=== PATIENT | female | born 1945 | race Caucasian/White ===

== ENCOUNTER 2023-03-12 06:19 | Emergency (ER) | payer MEDICARE, MEDICAID, SELFPAY ==
--- NOTE | 2023-03-12 06:26 | ECG_ITS ---
APPROVED REPORT Exam: Resting ECG HR:71 bpm ECG Measurements Heart Rate 71 AXES ME 153 P 64 QRSd 90 QRS 66 QT 316 T 25 QTc 339 Conclusion SINUS RHYTHM POSSIBLE RIGHT VENTRICULAR CONDUCTION DELAY [RSR (QR) IN V1/V2] NONSPECIFIC T-WAVE ABNORMALITY BORDERLINE ECG UNCONFIRMED REPORT Electronically signed by : Mike Estrada MD 03/12/2023 08:15:21
--- NOTE | 2023-03-12 06:31 | CT_ITS ---
FINAL REPORT TECHNIQUE: Axial images through the thoracic spine were performed. Sagittal reconstruction images were performed. This study was performed with techniques to keep radiation doses as low as reasonably achievable, (ALARA). Individualized dose reduction techniques using automated exposure control or adjustment of mA and/or kV according to the patient's size were employed. CLINICAL HISTORY: fall back pain FINDINGS: There is a minimal superior endplate compression fracture of T7 which is age indeterminate, favor chronic. Moderate dextroscoliosis is identified. There are moderate diffuse degenerative changes without fracture. Incidental note is made of a left lower lobe density which could be due to pneumonia, atelectasis, or even mass. IMPRESSION: Age indeterminate superior endplate compression fracture of T7, favor chronic. Nonspecific central left lower lobe parenchymal opacity. Consider chest CT follow-up. Reviewed, Interpreted and Dictated by Bebo Ahmadi MD Transcribed by Theresa Craig Authenticated and [facility]
--- NOTE | 2023-03-12 06:31 | XR_ITS ---
FINAL REPORT CLINICAL HISTORY: fall pain FINDINGS: Left hip Three views were obtained. There is no acute fracture or dislocation. There are mild degenerative changes. No soft tissue abnormality is identified. IMPRESSION: Mild degenerative changes. Reviewed, Interpreted and Dictated by Bebo Ahmadi MD Transcribed by Theresa Craig Authenticated and [facility]
--- NOTE | 2023-03-12 06:31 | CT_ITS ---
FINAL REPORT TECHNIQUE: Axial images were obtained of the cervical spine by computed tomography. Coronal and sagittal reconstruction process performed. This study was performed with techniques to keep radiation doses as low as reasonably achievable (ALARA). Individualized dose reduction techniques using automated exposure control or adjustment of mA and/or kV according to the patient''s size were employed. CLINICAL HISTORY: fall back pain FINDINGS: No fracture is identified. There is mild degenerative subluxation of C2 on 3. Severe diffuse degenerative disc disease is identified. There is degenerative canal stenosis at multiple levels in the lower cervical spine. IMPRESSION: Severe degenerative changes without acute fracture. Reviewed, Interpreted and Dictated by Bebo Ahmadi MD Transcribed by Theresa Craig Authenticated and [facility]
--- NOTE | 2023-03-12 06:31 | CT_ITS ---
FINAL REPORT TECHNIQUE: Axial images through the brain was performed by computed tomography. Sagittal and coronal reformatted images were obtained and reviewed. This study was performed with techniques to keep radiation doses as low as reasonably achievable (ALARA). Individualized dose reduction techniques using automated exposure control or adjustment of mA and/or kV according to the patient's size were employed. CLINICAL HISTORY: fall, advanced age FINDINGS: No abnormal density is seen. Ventricles are normal. There is no hemorrhage. No mass effect is seen. Bone windows show no evidence of fracture. IMPRESSION: No acute findings. Reviewed, Interpreted and Dictated by Bebo Ahmadi MD Transcribed by Theresa Craig Authenticated and . [facility]
--- NOTE | 2023-03-12 06:31 | CT_ITS ---
FINAL REPORT TECHNIQUE: Axial images were performed through the lumbar spine by computed tomography. Sagittal reconstruction images were also performed. This study was performed with techniques to keep radiation doses as low as reasonably achievable, (ALARA). Individualized dose reduction techniques using automated exposure control or adjustment of mA and/or kV according to the patient''s size were employed. CLINICAL HISTORY: fall back pain FINDINGS: No fracture is identified. There is severe degenerative disc disease. There is moderate levoscoliosis. Multilevel canal stenosis is identified, most pronounced at L3-4 and L4-5. IMPRESSION: Severe degenerative changes without acute process. Reviewed, Interpreted and Dictated by Bebo Ahmadi MD Transcribed by Theresa Craig Authenticated and [facility]
--- NOTE | 2023-03-12 06:31 | XR_ITS ---
FINAL REPORT CLINICAL HISTORY: fall, sob FINDINGS: Small left effusion is identified. The left lung bases obscured by effusion and cardiomegaly. The right lung is clear. There is no pneumothorax. Mediastinum is unremarkable. There is cardiomegaly. IMPRESSION: Left basilar density, likely related to pleural effusion. Reviewed, Interpreted and Dictated by Bebo Ahmadi MD Transcribed by Theresa Craig Authenticated and [facility]
--- NOTE | 2023-03-12 06:31 | XR_ITS ---
FINAL REPORT CLINICAL HISTORY: fall pain FINDINGS: Left femur Two views were obtained. There is no acute fracture or dislocation. There are post arthroplasty changes of the knee. No acute soft tissue abnormality is identified. IMPRESSION: No acute process. Reviewed, Interpreted and Dictated by Bebo Ahmadi MD Transcribed by Theresa Craig Authenticated and [facility]
[2023-03-12 06:35] VITALS: BP 120/43; PULSE 76; RESP 24; TEMP 36.6; O2SAT 95; BMI 42.5
[2023-03-12 06:36] VITALS: BMI 42.5
--- NOTE | 2023-03-12 06:37 | ED_ITS ---
Discharge Plan Disposition Patient Disposition: Home, Self-Care Condition: Good Prescriptions Prescriptions: No Action donepezil 10 mg tablet 10 mg PO DAILY Patient Comments: TAKE 1 TABLET BY MOUTH DAILY atenolol 25 mg tablet 25 mg PO DAILY Patient Comments: TAKE 1 TABLET BY MOUTH DAILY valsartan 80 mg tablet 80 mg PO DAILY Patient Comments: TAKE 1 TABLET BY MOUTH DAILY amlodipine 5 mg tablet 5 mg PO DAILY Patient Comments: TAKE 1 TABLET BY MOUTH DAILY omeprazole 40 mg capsule,delayed release(DR/EC) 40 mg PO DAILY Patient Comments: TAKE 1 CAPSULE BY MOUTH DAILY trazodone 150 mg tablet 150 mg PO HS Patient Comments: TAKE 1 TABLET BY MOUTH EVERY NIGHT AT BEDTIME buspirone 30 mg tablet 30 mg PO TID Patient Comments: TAKE 1 TABLET BY MOUTH THREE TIMES DAILY levothyroxine 125 mcg tablet 125 mcg PO AM Patient Comments: TAKE 1 TABLET BY MOUTH DAILY hydroxyzine HCl 25 mg tablet 12.5 - 25 mg PO Q8HP PRN (Reason: Anxiety) Patient Comments: TAKE 1/2 TO 1 TABLET BY MOUTH EVERY 8 HOURS NEEDED FOR ANXIETY pravastatin 20 mg tablet 20 mg PO DAILY Patient Comments: TAKE 1 TABLET BY MOUTH EVERY EVENING duloxetine 60 mg capsule,delayed release(DR/EC) 60 mg PO DAILY Patient Comments: TAKE 1 CAPSULE BY MOUTH DAILY Activity Restrictions/Add. Instructions Additional Instructions/Restrictions: You were evaluated in the emergency department today. You were incidentally found to have a lung nodule, for which we recommend follow-up with your primary care provider for monitoring. Return to the emergency department for new or worsening symptoms. Clinical Impressions Clinical Impression: Lung nodule Back pain Qualifiers: Back pain location: low back pain Chronicity: acute Back pain laterality: mid line Sciatica presence: without sciatica Qualified Code(s): M54.50 - Low back pain, unspecified Fall Qualifiers: Encounter type: initial encounter Qualified Code(s): W19.XXXA - Unspecified fall, initial encounter Acute hip pain Qualifiers: Laterality: left Qualified Code(s): M25.552 - Pain in left hip Instructions Patient Instructions: DI for Chronic Bronchitis, How to Prevent Falls Discharge ED Provider: Geo Manriquez General Adult HPI <Geo Manriquez MD - Last Filed: 03/12/23 06:45> General Chief complaint: Fall Stated complaint: Fall, SOA Time Seen by Provider: 03/12/23 06:20 History of Present Illness HPI narrative: 78-year-old female presents after a fall at home. She is normally on 3 L nasal cannula. She has history of COPD, she is a poor historian. She fell tonight despite using her walker while trying to get back and forth to the bathroom. She denies loss of consciousness. She reports that she feels generally weak. EMS reports that she was hypoxic on their arrival and wheezing but improved with DuoNeb's. She reports that she has primarily mid back pain. Also reporting left hip pain. Reports she does not feel significantly more short of breath than normal. Related Data Home Medications Medication Instructions Recorded Confirmed amlodipine 5 mg tablet 5 mg PO DAILY 03/12/23 03/12/23 atenolol 25 mg tablet 25 mg PO DAILY 03/12/23 03/12/23 buspirone 30 mg tablet 30 mg PO TID 03/12/23 03/12/23 donepezil 10 mg tablet 10 mg PO DAILY 03/12/23 03/12/23 duloxetine 60 mg capsule,delayed 60 mg PO DAILY 03/12/23 03/12/23 release hydroxyzine HCl 25 mg tablet 12.5 - 25 mg PO Q8HP PRN Anxiety 03/12/23 03/12/23 levothyroxine 125 mcg tablet 125 mcg PO AM 03/12/23 03/12/23 omeprazole 40 mg capsule,delayed 40 mg PO DAILY 03/12/23 03/12/23 release pravastatin 20 mg tablet 20 mg PO DAILY 03/12/23 03/12/23 trazodone 150 mg tablet 150 mg PO HS 03/12/23 03/12/23 valsartan 80 mg tablet 80 mg PO DAILY 03/12/23 03/12/23 Allergies Allergy/AdvReac Type Severity Reaction Status Date / Time No Known Allergies Allergy Verified 03/12/23 06:53 [facility] <Geo Manriquez MD - Last Filed: 03/12/23 06:45> [facility] Disclaimer: The information contained in this section may have been updated after the patient was seen, as this information can be updated by other users. Social History (Updated 03/12/23 @ 06:53 by Fadi Restrepo RN) Smoking Status: Former smoker alcohol intake: never current occupational status: retired Travel in the last 8 weeks: None <Geo Manriquez MD - Last Filed: 03/12/23 06:45> ROS Obtained: Yes All systems reviewed & no additional complaints except as documented Physical Exam <Geo Manriquez MD - Last Filed: 03/12/23 06:45> General General appearance: alert and obese Comment: Uncomfortable appearing Head Head exam: atraumatic and normocephalic Eye Eye exam: Present normal appearance, PERRL and EOMI ENT ENT exam: Present normal oropharynx and normal external ear exam Neck Neck exam: Present normal inspection and full ROM Chest Chest inspection: Present normal inspection and symmetric chest wall rise; Absent tenderness Respiratory Respiratory exam: Present other (Mildly increased work of breathing, pursed lips, no significant wheezing) Cardiovascular Cardiovascular exam: Present regular rate and normal rhythm Abdominal Exam Abdominal exam: Present soft; Absent distention, tenderness or guarding Extremities Exam Extremities exam: Present other (Tenderness palpation of the left hip,) Back Exam Back exam: Present normal inspection; Absent tenderness Neurological Exam Neurological exam: Present alert and oriented X3; Absent motor sensory deficit Psychiatric Psychiatric exam: Present normal affect and normal mood Skin Skin exam: Present warm, dry and normal color Lymphatic Lymphatic Findings: no adenopathy Medical Decision Making <Geo Manriquez MD - Last Filed: 03/12/23 06:45> Medical Records Medical records reviewed: Yes I reviewed the patient's medical records. [place] Inquiry Pt receiving controlled substance: No [place] was queried for this patient: No Vital Signs: 03/12/23 06:35 03/12/23 07:31 03/12/23 08:01 Temperature 97.9 F Temperature Source Oral Pulse Rate 73 76 Pulse Rate [Left Radial] 76 Respiratory Rate 24 15 12 Blood Pressure 128/112 H 158/58 H Blood Pressure [Right Arm] 120/43 L Blood Pressure Mean 114 Blood Pressure Mean [Right Arm] 68 Blood Pressure Source [Right Arm] Automatic Cuff Blood Pressure Position [Right Arm] Supine 02 Sat by Pulse Oximetry 95 95 94 L Oxygen Delivery Method Nasal Cannula Room Air Nasal Cannula Oxygen Flow Rate (LPM) 3 Lab Data Lab results reviewed: Yes I reviewed the patient's lab results. Lab Results 03/12/23 06:37: SARS-CoV-2 (PCR) Not detected, Influenza A Untype (PCR) Not detected, Influenza Type B (PCR) Not detected 03/12/23 06:55: WBC 10.7, RBC 4.22, Hgb 13.5, Hct 44.3, MCV 105.2 H, MCH 31.9 H, MCHC 30.4 L, RDW 13.4, Plt Count 201, MPV 8.6, Neut % (Auto) 64.3, Lymph % (Auto) 26.0, [place] % (Auto) 5.9, Eos % (Auto) 2.7, Baso % (Auto) 1.1, Neut # (Auto) 6.9, Lymph # (Auto) 2.8, [place] # (Auto) 0.6, Eos # (Auto) 0.3, Baso # (Auto) 0.1, PT 10.8, INR 1.00, Sodium 142, Potassium 4.0, Chloride 94 L, Carbon Dioxide 51 H*, Anion Gap 12.0, BUN 11, Creatinine 0.60, Estimated Creat Clear 38, Estimated GFR 96, Est GFR ( Amer) 117, Glucose 128 H, Calcium 8.8, Total Bilirubin 0.3, AST 22, ALT 15, Alkaline Phosphatase 84, Total Protein 6.2 L, Albumin 3.2 L, Globulin 3.0, Albumin/Globulin Ratio 1.1 03/12/23 06:55 03/12/23 06:55 Orders (Tests/Meds): ORDERS Category Date Time Status CT bony pelvis Stat Cat Scan 03/12/23 06:[address] cervical spine wo con Stat Cat Scan 03/12/23 06:[address] head/brain wo con Stat Cat Scan 03/12/23 06:[address] lumbar spine wo con Stat Cat Scan 03/12/23 06:[address] thoracic spine wo con Stat Cat Scan 03/12/23 06:31 Completed CXR --portable [XR chest portable] Stat Exams 03/12/23 06:31 Taken Femur XR left 2 views [XR femur LT 2V] Stat Exams 03/12/23 06:31 Completed Hip XR left minimum 2 views [XR hip LT 2-3V w/pelvis] Exams 03/12/23 06:31 Completed Stat CBC w/Auto Diff [Complete Blood Count Auto Diff] Stat Lab 03/12/23 06:55 Completed CMP [Comprehensive Metabolic Panel] Stat Lab 02/02/24 06:55 Completed INR [Prothrombin Time INR] Stat Lab 03/12/23 06:55 Completed Rapid PCR Covid and Flu A/B Stat Lab 03/12/23 06:37 Completed ECG initial [place] Routine Y 03/12/23 06:26 Completed ECG Data Tracing #1: I reviewed this ECG and interpreted as documented below: Sinus rhythm, rate of 71, no concerning ST or T wave changes. ECG initial impression date: 03/12/23 ECG initial impression time: 06:28 Medical Decision Narrative: 78-year-old female, history of COPD on 3 L nasal cannula baseline presents with left hip pain and mid back pain after fall from standing. History was obtained via conversation with patient, EMS. On arrival, patient is [afebrile, hemodynamically stable, satting appropriately, alert, oriented x4, GCS 15], moving all extremities spontaneously. Full physical exam performed and significant for tenderness to the mid back, tenderness to the left hip. According to EMS, lung sounds improved from earlier after they gave single DuoNeb. Differential includes but is not limited to intracranial trauma spine trauma thoracic trauma extremity trauma COPD exacerbation. Workup initiated including basic labs, radiographs of the chest pelvis and left hip/femur, CTs of the head and spines. At this time care handoff to oncoming physician pending workup. <Tana Muniz, DO - Last Filed: 03/12/23 09:05> Vital Signs: 03/12/23 06:35 03/12/23 07:31 03/12/23 08:01 Temperature 97.9 F Temperature Source Oral Pulse Rate 73 76 Pulse Rate [Left Radial] 76 Respiratory Rate 24 15 12 Blood Pressure 128/112 H 158/58 H Blood Pressure [Right Arm] 120/43 L Blood Pressure Mean 114 Blood Pressure Mean [Right Arm] 68 Blood Pressure Source [Right Arm] Automatic Cuff Blood Pressure Position [Right Arm] Supine 02 Sat by Pulse Oximetry 95 95 94 L Oxygen Delivery Method Nasal Cannula Room Air Nasal Cannula Oxygen Flow Rate (LPM) 3 Lab Data Lab Results 03/12/23 06:37: SARS-CoV-2 (PCR) Not detected, Influenza A Untype (PCR) Not detected, Influenza Type B (PCR) Not detected 03/12/23 06:55: WBC 10.7, RBC 4.22, Hgb 13.5, Hct 44.3, MCV 105.2 H, MCH 31.9 H, MCHC 30.4 L, RDW 13.4, Plt Count 201, MPV 8.6, Neut % (Auto) 64.3, Lymph % (Auto) 26.0, [place] % (Auto) 5.9, Eos % (Auto) 2.7, Baso % (Auto) 1.1, Neut # (Auto) 6.9, Lymph # (Auto) 2.8, [place] # (Auto) 0.6, Eos # (Auto) 0.3, Baso # (Auto) 0.1, PT 10.8, INR 1.00, Sodium 142, Potassium 4.0, Chloride 94 L, Carbon Dioxide 51 H*, Anion Gap 12.0, BUN 11, Creatinine 0.60, Estimated Creat Clear 38, Estimated GFR 96, Est GFR ( Amer) 117, Glucose 128 H, Calcium 8.8, Total Bilirubin 0.3, AST 22, ALT 15, Alkaline Phosphatase 84, Total Protein 6.2 L, Albumin 3.2 L, Globulin 3.0, Albumin/Globulin Ratio 1.1 Orders (Tests/Meds): ORDERS Category Date Time Status CT bony pelvis Stat Cat Scan 03/12/23 06:[address] cervical spine wo con Stat Cat Scan 03/12/23 06:[address] head/brain wo con Stat Cat Scan 03/12/23 06:[address] lumbar spine wo con Stat Cat Scan 03/12/23 06:[address] thoracic spine wo con Stat Cat Scan 03/12/23 06:31 Completed CXR --portable [XR chest portable] Stat Exams 03/12/23 06:31 Taken Femur XR left 2 views [XR femur LT 2V] Stat Exams 03/12/23 06:31 Completed Hip XR left minimum 2 views [XR hip LT 2-3V w/pelvis] Exams 03/12/23 06:31 Completed Stat CBC w/Auto Diff [Complete Blood Count Auto Diff] Stat Lab 03/12/23 06:55 Completed CMP [Comprehensive Metabolic Panel] Stat Lab 03/12/23 06:55 Completed INR [Prothrombin Time INR] Stat Lab 03/12/23 06:55 Completed Rapid PCR Covid and Flu A/B Stat Lab 03/12/23 06:37 Completed ECG initial [place] Routine Y 03/12/23 06:26 Completed Medical Decision Narrative: 78-year-old female, history of COPD on 3 L nasal cannula baseline presents with left hip pain and mid back pain after fall from standing. History was obtained via conversation with patient, EMS. On arrival, patient is [afebrile, hemodynamically stable, satting appropriately, alert, oriented x4, GCS 15], moving all extremities spontaneously. Full physical exam performed and significant for tenderness to the mid back, tenderness to the left hip. According to EMS, lung sounds improved from earlier after they gave single DuoNeb. Differential includes but is not limited to intracranial trauma spine trauma thoracic trauma extremity trauma COPD exacerbation. Workup initiated including basic labs, radiographs of the chest pelvis and left hip/femur, CTs of the head and spines. At this time care handoff to oncoming physician pending workup. DO Flavio: On my assessment of the patient, she is resting comfortably with normal work of breathing on her home oxygen. Vitals are reassuring. I do feel interpreted CT scans prior to radiology read and noted no acute injuries. Patient has a chronic T7 deformity with no tenderness over that area. Given this, I do not feel this is acute. Patient states that she will try going home given reassuring workup and exam. Patient was given instructions for supportive management of musculoskeletal pain from fall, strict return precautions, and she was discharged in stable condition after all questions were answered. She was given instructions for close follow-up with her primary care provider. Procedures <Geo Manriquez MD - Last Filed: 03/12/23 06:45> Risk/Benefits of Procedure(s) Were Explained: Yes Critical Care <Geo Manriquez MD - Last Filed: 03/12/23 06:45> Critical Care Time Critical Care Time: No
--- NOTE | 2023-03-12 06:39 | CT_ITS ---
FINAL REPORT TECHNIQUE: Axial images through the pelvis were performed by computed tomography. Sagittal and coronal reformatted images were obtained and reviewed. This study was performed with techniques to keep radiation doses as low as reasonably achievable (ALARA). Individualized dose reduction techniques using automated exposure control or adjustment of mA and/or kV according to the patient's size were employed. CLINICAL HISTORY: fall, left pelvic pain FINDINGS: There are severe degenerative changes of the right hip. There are mild degenerative changes of the left hip. No acute fracture is identified. Incidental note is made of advanced diverticular disease of the sigmoid colon. IMPRESSION: Degenerative changes without acute fracture. Reviewed, Interpreted and Dictated by Bebo Ahmadi MD Transcribed by Theresa Craig Authenticated and [facility]
[2023-03-12 06:48] LABS: Coronavirus 19, PCR Not Detected (NotDetected); Influenza A, PCR Not Detected (NotDetected); Influenza B, PCR Not Detected (NotDetected)
[2023-03-12 07:04] LABS: Basophils # 0.1 K/mm3 (0-0.2); Basophils % 1.1 % (0.1-2.0); Eosinophils # 0.3 K/mm3 (0.0-0.4); Eosinophils % 2.7 % (0.1-12.0); Hematocrit 44.3 % (37.0-47.0); Hemoglobin 13.5 g/dL (12.2-16.2); Lymphocytes # 2.8 K/mm3 (0.7-4.5); Mean Corpuscular HGB Conc 30.4 g/dL (31.8-35.4); Mean Corpuscular Hemoglobin 31.9 pg (27.0-31.2); Mean Corpuscular Volume 105.2 fl (81-99); Mean Platelet Volume 8.6 fl (7.4-10.4); Monocytes # 0.6 K/mm3 (0.1-1.0); Monocytes % 5.9 % (1.7-9.3); Neutrophils # 6.9 K/mm3 (1.8-7.8); Neutrophils % 64.3 % (37.0-80.0); Platelet Count 201 K/mm3 (142-424); Red Blood Count 4.22 M/mm3 (4.20-5.40); Red Cell Distribution Width 13.4 % (11.5-17.5); White Blood Count 10.7 K/mm3 (4.8-10.8)
[2023-03-12 07:11] LABS: Prothrombin Time 10.8 seconds (10.1-12.5)
[2023-03-12 07:25] LABS: Chloride 94 mmol/L (98-107); Sodium 142 mmol/L (136-145)
[2023-03-12 07:28] LABS: Alanine Aminotransferase 15 U/L (12-78); Albumin Level 3.2 g/dl (3.5-5.0); Albumin/Globulin Ratio 1.1 (1.1-1.8); Alkaline Phosphatase 84 U/L (38-126); Aspartate Amino Transferase 22 U/L (14-36); Bilirubin,Total 0.3 mg/dl (0.2-1.3); Blood Urea Nitrogen 11 mg/dl (7-17); Creatinine Clearance Estimated 38 mL/min (50-200); Estimated Glomerular Filt Rate 96 ml/min (>60); GFR (African American) 117 ML/MIN (>60); Total Protein,Serum 6.2 g/dl (6.3-8.2)
[2023-03-12 07:29] LABS: Calcium 8.8 mg/dl (8.4-10.2); Glucose 128 mg/dl (74-100)
[2023-03-12 07:31] VITALS: BP 128/112; PULSE 73; RESP 15; O2SAT 95
[2023-03-12 07:46] LABS: Carbon Dioxide 51 mmol/L (22.0-30.0)
--- NOTE | 2023-03-12 07:46 | PC.NURSE ---
POS 61, aware
[2023-03-12 08:01] VITALS: BP 158/58; PULSE 76; RESP 12; O2SAT 94
--- NOTE | 2023-03-12 08:23 | PC.NURSE ---
Pt provided with warm blanket
--- NOTE | 2023-03-12 08:41 | PC.NURSE ---
DR LOMBARDO AT BEDSIDE
[2023-03-12 09:57] VITALS: BP 158/58; PULSE 76; RESP 19; TEMP 36.6; O2SAT 94
== END 2023-03-12 09:58 | disposition home or self-care (01) ==
PROVIDERS: Emergency Provider Emergency Medicine; PCP Family Medicine
DX: M54.50 Low back pain, unspecified (principal); M25.552 Pain in left hip; R06.02 Shortness of breath; R91.1 Solitary pulmonary nodule; J44.9 Chronic obstructive pulmonary disease, unspecified; R53.1 Weakness; Z87.891 Personal history of nicotine dependence; W18.30XA Fall on same level, unspecified, initial encounter
CPT/HCPCS: 70450; 71045; 72125; 72128; 72131; 72192; 73502; 73552; 80053; 85025; 85610; 87636; 93005; 99285

== ENCOUNTER 2023-10-14 03:55 | Observation (INO) | payer MEDICARE, SELFPAY ==
[2023-10-14] VITALS (11 sets, daily range): BP systolic 120–153; BP diastolic 49–88; PULSE 65–80; RESP 14–20; TEMP 37.2–37.7; O2SAT 88–99; BMI 42.9; BMI 42.0
--- NOTE | 2023-10-14 03:59 | XR_ITS ---
PROCEDURE INFORMATION: Exam: XR Chest Exam date and time: 10/14/2023 4:31 AM Age: 78 years old Clinical indication: Shortness of breath; Additional info: SOA TECHNIQUE: Imaging protocol: Radiologic exam of the chest. Views: 1 view. COMPARISON: CR XR CHEST PORTABLE 03/12/2023 7:06 AM FINDINGS: Lungs: Left lower lobe atelectasis versus airspace disease. No consolidation. Pleural spaces: Unremarkable. Left small pleural effusion. No pneumothorax. Heart/Mediastinum: Unremarkable. Moderate stable cardiomegaly. Bones/joints: Unremarkable. IMPRESSION: Cardiomegaly with left lower lobe airspace disease and effusion.
--- NOTE | 2023-10-14 03:59 | CT_ITS ---
PROCEDURE INFORMATION: Exam: CT Abdomen And Pelvis With Contrast Exam date and time: 10/14/2023 5:02 AM Age: 78 years old Clinical indication: Abdominal pain; Additional info: Back pain TECHNIQUE: Imaging protocol: Computed tomography of the abdomen and pelvis with contrast. Radiation optimization: All CT scans at this facility use at least one of these dose optimization techniques: automated exposure control; mA and/or kV adjustment per patient size (includes targeted exams where dose is matched to clinical indication); or iterative reconstruction. Contrast material: ISOVUE; Contrast volume: 75 ml; Contrast route: IV; COMPARISON: CT BONY PELVIS 03/12/2023 7:02 AM FINDINGS: Lungs: Basilar atelectasis. Heart: Mitral annular calcifications. Coronary arteries: Coronary atherosclerosis. Liver: Normal. No mass. Gallbladder and biliary ducts: Normal. No calcified stones. No ductal dilation. Pancreas: Normal. No ductal dilation. Spleen: Normal. No splenomegaly. Adrenal glands: Normal. No mass. Kidneys and ureters: Normal. No hydronephrosis. Stomach and bowel: Sigmoid diverticulosis. Appendix: No evidence of appendicitis. Intraperitoneal space: Unremarkable. No free air. No significant fluid collection. Vasculature: Aortic atherosclerosis without aneurysm. Lymph nodes: Unremarkable. No enlarged lymph nodes. Urinary bladder: Unremarkable as visualized. Reproductive: Unremarkable as visualized. Bones/joints: Diffuse degenerative disc disease with moderate dextro concave scoliosis centered at the L2 vertebral body. Vacuum disc phenomena is noted at multiple levels. No evidence of acute fracture is noted. Hypertrophic changes of the facet joints are seen throughout the lumbar spine. Soft tissues: Unremarkable. IMPRESSION: 1. No acute abdominal or pelvic process. 2. Coronary atherosclerosis. 3. Sigmoid diverticulosis without diverticulitis. 4. Diffuse degenerative disc disease with multilevel vacuum disc phenomena and scoliosis. Consider MRI for further evaluation as clinically indicated.
--- NOTE | 2023-10-14 04:01 | HMH.EDGENADL ---
Discharge Plan Disposition Patient Disposition: Admitted Clinical Impressions Clinical Impression: AMS (altered mental status), Cough Back pain Qualifiers: Back pain location: low back pain Chronicity: acute Back pain laterality: midline Sciatica presence: without sciatica Qualified Code(s): M54.50 - Low back pain, unspecified Discharge ED Provider: Geo Marniquez General Adult HPI General Chief complaint: Shortness of Breath/Dyspnea Stated complaint: Low back pain, SOA Time Seen by Provider: 10/14/23 03:59 History of Present Illness HPI narrative: 78-year-old female with history of COPD, hypertension presents for multiple complaints. History obtained from patient, EMS, family at bedside. On arrival patient is alert and oriented. She complains only of back pain. The family reports that she was not acting herself, that her color was off, that she had an episode of coughing that prevented her from catching her breath, and that she was complaining of back pain at home. They report that she is just not herself. EMS reports that her blood pressure was a little low and route and she was given 250 of fluid. Female reports that she is being treated for UTI and a yeast infection of the groin currently. No recent fever. Patient denies chest pain headache shortness of breath nausea vomiting abdominal pain. Related Data Home Medications ?Medication ?Instructions ?Recorded ?Confirmed amlodipine 5 mg tablet 5 mg PO DAILY 03/12/23 03/12/23 atenolol 25 mg tablet 25 mg PO DAILY 03/12/23 03/12/23 buspirone 30 mg tablet 30 mg PO TID 03/12/23 03/12/23 donepezil 10 mg tablet 10 mg PO DAILY 03/12/23 03/12/23 duloxetine 60 mg capsule,delayed 60 mg PO DAILY 03/12/23 03/12/23 release hydroxyzine HCl 25 mg tablet 12.5 - 25 mg PO Q8HP PRN Anxiety 03/12/23 03/12/23 levothyroxine 125 mcg tablet 125 mcg PO AM 03/12/23 03/12/23 omeprazole 40 mg capsule,delayed 40 mg PO DAILY 03/12/23 03/12/23 release pravastatin 20 mg tablet 20 mg PO DAILY 03/12/23 03/12/23 trazodone 150 mg tablet 150 mg PO HS 03/12/23 03/12/23 valsartan 80 mg tablet 80 mg PO DAILY 03/12/23 03/12/23 Allergies Allergy/AdvReac Type Severity Reaction Status Date / Time No Known Allergies Allergy Verified 03/12/23 06:53 [facility] Disclaimer: The information contained in this section may have been updated after the patient was seen, as this information can be updated by other users. Social History (Updated 03/12/23 @ 06:53 by Fdai Restrepo RN) Smoking Status: Never smoker alcohol intake: never current occupational status: retired Travel in the last 8 weeks: None ROS Obtained: Yes All systems reviewed & no additional complaints except as documented Physical Exam General General appearance: alert and in no apparent distress Head Head exam: atraumatic and normocephalic Eye Eye exam: Present normal appearance, PERRL and EOMI ENT ENT exam: Present normal oropharynx and normal external ear exam Neck Neck exam: Present normal inspection and full ROM Chest Chest inspection: Present normal inspection and symmetric chest wall rise; Absent tenderness Respiratory Respiratory exam: Present normal lung sounds bilaterally; Absent respiratory distress Cardiovascular Cardiovascular exam: Present regular rate and normal rhythm Abdominal Exam Abdominal exam: Present soft and distention (Obese); Absent tenderness or guarding Extremities Exam Extremities exam: Present normal inspection; Absent edema or joint swelling Back Exam Back exam: Present normal inspection; Absent tenderness Neurological Exam Neurological exam: Present alert, oriented X3, CN II-XII intact and other (NIH 0); Absent motor sensory deficit Psychiatric Psychiatric exam: Present normal affect and normal mood Skin Skin exam: Present warm, dry and normal color Lymphatic Lymphatic Findings: no adenopathy Medical Decision Making Medical Records Medical records reviewed: Yes I reviewed the patient's medical records. [place] Inquiry Pt receiving controlled substance: No [place] was queried for this patient: No Vital Signs: 10/14/23 03:55 10/14/23 04:30 10/14/23 05:30 Temperature 99.1 F Temperature Source Oral Pulse Rate 74 72 Pulse Rate [Left] 77 Respiratory Rate 14 18 16 Blood Pressure 130/88 135/84 Blood Pressure [Right Arm] 135/51 L Blood Pressure Mean [Right Arm] 79 Blood Pressure Source Automatic Cuff Automatic Cuff Blood Pressure Source [Right Arm] Automatic Cuff Blood Pressure Position Supine Supine Blood Pressure Position [Right Arm] Sitting 02 Sat by Pulse Oximetry 92 L 96 97 Oxygen Delivery Method Nasal Cannula Nasal Cannula Room Air Oxygen Flow Rate (LPM) 4 4 10/14/23 06:35 Temperature 99 F Temperature Source Oral Pulse Rate 77 Pulse Rate [Left] Respiratory Rate 16 Blood Pressure 153/49 H Blood Pressure [Right Arm] Blood Pressure Mean [Right Arm] Blood Pressure Source Automatic Cuff Blood Pressure Source [Right Arm] Blood Pressure Position Supine Blood Pressure Position [Right Arm] 02 Sat by Pulse Oximetry Oxygen Delivery Method Nasal Cannula Oxygen Flow Rate (LPM) 4 Lab Data Lab results reviewed: Yes I reviewed the patient's lab results. Lab Results 10/14/23 04:10: Urine Color Yellow, Urine Appearance Clear, Urine pH 8.0, Ur Specific [place] 1.020, Urine Protein Trace, Urine Glucose (UA) Negative, Urine Ketones 1+, Urine Blood Negative, Urine Nitrate Negative, Urine Bilirubin Negative, Urine Urobilinogen 2.0, Ur Leukocyte Esterase Negative, Urine RBC None, Urine WBC Occasional, Ur Squamous Epith Cells 3-5, Urine Bacteria Trace, Urine Opiates Screen Negative, Urine Methadone Screen Negative, Ur Barbituates Screen Negative, Ur Phencyclidine Scrn Negative, Ur Amphetamines Screen Negative, U Benzodiazepines Scrn Negative, Urine Cocaine Screen Negative, U Marijuana (THC) Screen Negative 10/14/23 04:18: WBC 9.1, RBC 3.56 L, Hgb 11.3 L, Hct 37.6, MCV 105.6 H, MCH 31.9 H, MCHC 30.2 L, RDW 13.7, Plt Count 133 L, MPV 9.0, Neut % (Auto) 86.1 H, Lymph % (Auto) 7.4 L, [place] % (Auto) 4.0, Eos % (Auto) 1.6, Baso % (Auto) 1.0, Neut # (Auto) 7.8, Lymph # (Auto) 0.7, [place] # (Auto) 0.4, Eos # (Auto) 0.1, Baso # (Auto) 0.1, Total Counted 100, Neutrophils % (Manual) 93 H, Lymphocytes % (Manual) 7 L, RBC Morphology Normal, Sodium 133 L, Potassium 5.1, Chloride 101, Carbon Dioxide 28, Anion Gap 9.1, BUN 19 H, Creatinine 0.80, Estimated Creat Clear 39, Estimated GFR 69, Est GFR ( Amer) 84, Glucose 124 H, Calcium 8.4, Total Bilirubin 1.3, AST 70 H, ALT 28, Alkaline Phosphatase 132 H, Troponin I < 0.01, NT-Pro-B Natriuret Pep 1450 H, Total Protein 6.8, Albumin 3.4 L, Globulin 3.4 H, Albumin/Globulin Ratio 1.0 L 10/14/23 04:46: SARS-CoV-2 (PCR) Not detected, Influenza A Untype (PCR) Not detected, Influenza Type B (PCR) Not detected 10/14/23 05:20: D-Dimer 0.55 H 10/14/23 04:18 10/14/23 04:18 Orders (Tests/Meds): ED MEDICATIONS Generic Name Dose Route Start Last Admin Trade Name Freq PRN Reason Stop Dose Admin Iopamidol 80 ml 10/14/23 06:29 10/14/23 06:30 Iopamidol-370 (76%);100ml Bottle IV 10/14/23 06:30 80 ml ONCE ONE Administration Sodium Chloride 10 ml 10/14/23 05:07 10/14/23 05:08 Sodium Chloride 0.9% 10ml Syr (Rad Only) IV 11/13/23 05:06 10 ml NEEDED PRN Administration Maintain IV Site Sodium Chloride 50 ml 10/14/23 06:29 10/14/23 06:30 0.9 % Sodium Chloride 50 Ml Vial IV 10/14/23 06:30 50 ml ONCE ONE Administration Sodium Chloride 10 ml 10/14/23 06:29 10/14/23 06:31 Sodium Chloride 0.9% 10ml Syr (Rad Only) IV 11/13/23 06:28 10 ml NEEDED PRN Administration Maintain IV Site Discontinued Medications Generic Name Dose Route Start Last Admin Trade Name Freq PRN Reason Stop Dose Admin Iopamidol 75 ml 10/14/23 05:07 10/14/23 05:08 Iopamidol-370 (76%);100ml Bottle IV 10/14/23 05:08 75 ml ONCE ONE Administration ORDERS Category Date Time Status CT abdomen pelvis w con Stat Cat Scan 10/14/23 03:[address] angio chest PE protocol Stat Cat Scan 10/14/23 05:[address] head/brain wo con Stat Cat Scan 10/14/23 05:43 Completed CXR --portable [XR chest portable] Stat Exams 10/14/23 03:59 Completed BNP [NT Pro Brain Natriuretic Pep.] Stat Lab 10/14/23 04:18 Completed CBC w/Auto Diff [Complete Blood Count Auto Diff] Stat Lab 10/14/23 04:18 Completed CMP [Comprehensive Metabolic Panel] Stat Lab 10/14/23 04:18 Completed D-Dimer Stat Lab 10/14/23 05:20 Completed Rapid PCR Covid and Flu A/B Stat Lab 10/14/23 04:46 Completed Troponin I Q3H Lab 10/14/23 04:18 Completed Troponin I Q3H Lab 10/14/23 07:30 Ordered UA [Urinalysis and Microscopic] Stat Lab 10/14/23 04:10 Completed UDS [Drug Screen,Urine] Stat Lab 10/14/23 04:10 Completed Blood Culture Stat Micro 10/14/23 05:20 Received ECG Data Tracing #1: I reviewed this ECG and interpreted as documented below: Sinus rhythm, rate of 73, no significant ST elevation or depression. ECG initial impression date: 10/14/23 ECG initial impression time: 04:03 HEART Score History (anamnesis): Slightly suspicious ECG: Normal Age: >65 years Risk factors: 3 or more risk factors Troponin: </= normal limit HEART Score: 4 Medical Decision Narrative: 78-year-old female with reported history of hypertension, COPD on 3 L nasal cannula baseline, hypothyroidism presents for multiple complaints. Family reports that she was not acting herself tonight when she woke up, she had a fit of coughing, her color was off. History was obtained via interactive discussion with patient, EMS, family. On arrival, patient is [afebrile, hemodynamically stable, satting appropriately, alert, partially oriented, GCS 15], moving all extremities spontaneously. Full physical exam performed and significant for dry mucous membranes, NIH of 0. Patient complaining of back pain. Differential includes but is not limited to COVID, flu, pneumonia, UTI, [place], kidney stone, diverticulitis, intracranial lesion, intoxication, withdrawal, medication side effect, delirium Patient was given 1 L fluid bolus for symptomatic management and correction of underlying abnormalities. Workup initiated including CBC CMP troponin D-dimer blood culture urinalysis UDS chest x-ray EKG CT head CT PE CT abdomen and pelvis with IV contrast. On re-evaluation, patient [remains afebrile, HD stable.] Patient is still not acting anywhere near normal per family. Laboratory workup independently interpreted by me and significant for no significant leukocytosis, mildly elevated BNP, D-dimer greater than 0.5, AST and alk phos mildly elevated. COVID-negative. Imaging independently interpreted by me and significant for no evidence of intracranial bleeding, no pneumothorax pneumonia or PE on the CT chest, no pyelo-, kidney stone, diverticulitis or other source of back/abdominal pain.. See radiology read for full review of final results. Given patient history, exam and workup, patient's presentation most likely represents altered mental status of uncertain etiology. Our workup to this point has been unremarkable, but family are adamant that the patient is not normal and not acting herself. Given this, I had a discussion with the hospitalist regarding admission for altered mental status. Procedures Risk/Benefits of Procedure(s) Were Explained: Yes Critical Care Critical Care Time Critical Care Time: No
--- NOTE | 2023-10-14 04:03 | ECG_ITS ---
APPROVED REPORT Exam: Resting ECG HR:73 bpm ECG Measurements Heart Rate 73 AXES OH 166 P 67 QRSd 89 QRS 66 QT 377 T 22 QTc 402 Conclusion SINUS RHYTHM POSSIBLE RIGHT VENTRICULAR CONDUCTION DELAY [RSR (QR) IN V1/V2] BORDERLINE ECG UNCONFIRMED REPORT Electronically signed by : JESSY REED, 10/14/2023 07:07:16
[2023-10-14 04:14] LABS: Microscopic, Urine URINE MICROSCOPIC (MICROSCOPIC)
[2023-10-14 04:17] LABS: Appearance,Urine CLEAR (Clear); Blood, Urine Negative (Negative); Color,Urine YELLOW (Yellow); Glucose,Urine (UA) Negative (Negative); Ketones,Urine 1+ (Negative); Leukocyte Esterase,Urine Negative (Negative); Nitrate,Urine Negative (Negative); Protein,Urine TRACE (Negative)
[2023-10-14 04:30] LABS: Bacteria,Urine Trace /lpf; Bilirubin,Urine Negative (Negative); WBC,Urine Occasional #/hpf (0-3)
[2023-10-14 04:36] LABS: Basophils # 0.1 K/mm3 (0-0.2); Eosinophils # 0.1 K/mm3 (0.0-0.4); Eosinophils % 1.6 % (0.1-12.0); Hematocrit 37.6 % (37.0-47.0); Hemoglobin 11.3 g/dL (12.2-16.2); Lymphocytes # 0.7 K/mm3 (0.7-4.5); Lymphocytes % 7.4 % (10-50); Mean Corpuscular HGB Conc 30.2 g/dL (31.8-35.4); Mean Corpuscular Hemoglobin 31.9 pg (27.0-31.2); Mean Corpuscular Volume 105.6 fl (81-99); Monocytes # 0.4 K/mm3 (0.1-1.0); Neutrophils # 7.8 K/mm3 (1.8-7.8); Neutrophils % 86.1 % (37.0-80.0); Platelet Count 133 K/mm3 (142-424); Red Blood Count 3.56 M/mm3 (4.20-5.40); Red Cell Distribution Width 13.7 % (11.5-17.5); White Blood Count 9.1 K/mm3 (4.8-10.8)
[2023-10-14 04:38] LABS: MANUAL DIFFERENTIAL MANUAL DIFFERENTIAL (MANUAL DIFF)
[2023-10-14 04:40] LABS: Alanine Aminotransferase 28 U/L (12-78); Albumin Level 3.4 g/dl (3.5-5.0); Alkaline Phosphatase 132 U/L (38-126); Aspartate Amino Transferase 70 U/L (14-36); Bilirubin,Total 1.3 mg/dl (0.2-1.3); Blood Urea Nitrogen 19 mg/dl (7-17); Calcium 8.4 mg/dl (8.4-10.2); Carbon Dioxide 28 mmol/L (22.0-30.0); Chloride 101 mmol/L (98-107); Creatinine Clearance Estimated 39 mL/min (50-200); Estimated Glomerular Filt Rate 69 ml/min (>60); GFR (African American) 84 ML/MIN (>60); Globulin 3.4 g/dL (1.3-3.2); Glucose 124 mg/dl (74-100); Sodium 133 mmol/L (136-145); Total Protein,Serum 6.8 g/dl (6.3-8.2)
[2023-10-14 04:49] LABS: Anion Gap 9.1 mEq/L (5-15); Potassium 5.1 mmoL/L (3.5-5.1)
[2023-10-14 04:50] LABS: Coronavirus 19, PCR Not Detected (NotDetected); Influenza A, PCR Not Detected (NotDetected); Influenza B, PCR Not Detected (NotDetected)
[2023-10-14 04:52] LABS: NT Pro Brain Natriuretic Pep. 1450 pg/mL (0-450)
[2023-10-14 04:53] LABS: Troponin I < 0.01 ng/ml (0.00-0.034)
[2023-10-14] MEDS: IOPAMIDOL-370 (76%);100ML BOTTLE 75 ML IV (05:08)
[2023-10-14] MEDS: SODIUM CHLORIDE 0.9% 10ML SYR (RAD ONLY) 10 ML IV ×2 (05:08→06:31)
[2023-10-14 05:25] LABS: Lymphocytes % 7 % (10-50); Neutrophils % 93 % (42-76); Total Cells Counted 100
--- NOTE | 2023-10-14 05:25 | PC.NURSE ---
Pure Wick cath applied to wall suction
[2023-10-14 05:26] LABS: RBC Morphology Normal
--- NOTE | 2023-10-14 05:43 | CT_ITS ---
PROCEDURE INFORMATION: Exam: CT Head Without Contrast Exam date and time: 10/14/2023 6:09 AM Age: 78 years old Clinical indication: Altered mental status/memory loss; Additional info: AMS TECHNIQUE: Imaging protocol: Computed tomography of the head without contrast. Radiation optimization: All CT scans at this facility use at least one of these dose optimization techniques: automated exposure control; mA and/or kV adjustment per patient size (includes targeted exams where dose is matched to clinical indication); or iterative reconstruction. COMPARISON: CT HEAD/BRAIN WO CON 03/12/2023 6:49 AM FINDINGS: Brain: There is diffuse prominence of the cerebral sulci, cisterns, and ventricles consistent with atrophy. No intra or extra-axial fluid collections are noted. No mass or mass effect is seen. Periventricular white matter hypoattenuation is seen consistent with chronic small vessel disease. Cerebral ventricles: No ventriculomegaly. Paranasal sinuses: Visualized sinuses are unremarkable. No fluid levels. Mastoid air cells: Visualized mastoid air cells are well aerated. Bones: Unremarkable. No acute fracture. Soft tissues: Unremarkable. IMPRESSION: No acute process noted.
[2023-10-14 05:44] LABS: D-Dimer 0.55 ug/mL (0.0-0.5)
--- NOTE | 2023-10-14 05:54 | CT_ITS ---
PROCEDURE INFORMATION: Exam: CTA Chest With Contrast Exam date and time: 10/14/2023 6:14 AM Age: 78 years old Clinical indication: Shortness of breath; Additional info: Positive dimer TECHNIQUE: Imaging protocol: Computed tomographic angiography of the chest with contrast. Exam focused on the arteries. 3D rendering (Not supervised by radiologist): MIP and/or 3D reconstructed images were created by the technologist. Radiation optimization: All CT scans at this facility use at least one of these dose optimization techniques: automated exposure control; mA and/or kV adjustment per patient size (includes targeted exams where dose is matched to clinical indication); or iterative reconstruction. Contrast material: ISOVUE; Contrast volume: 80 ml; Contrast route: INTRAVENOUS (IV); COMPARISON: CR XR CHEST PORTABLE 10/14/2023 4:31 AM FINDINGS: Pulmonary arteries: Small filling defect is seen in 1 of the left lower lobe pulmonary arteries. Probable filling defect is also seen in the right lower lobe pulmonary artery. The pulmonary artery measures 3.6 cm. Aorta: Unremarkable. No aortic aneurysm. No aortic dissection. Lungs: Minimal basilar atelectasis is noted bilaterally. Pleural spaces: Unremarkable. No pneumothorax. No pleural effusion. Heart: Dense aortic valve calcifications. Moderate cardiomegaly. Mitral annular calcifications. There is mild flattening of the intraventricular septum. Heart RV/LV ratio: The RV to LV ratio is 1.2. Coronary arteries: Coronary atherosclerosis. Lymph nodes: Unremarkable. No enlarged lymph nodes. Bones/joints: Unremarkable. No acute fracture. Soft tissues: Unremarkable. IMPRESSION: 1. Multiple small bilateral lower lobe pulmonary emboli, the clot burden is low. There is evidence of right heart strain, correlation with echocardiography recommended. 2. Coronary atherosclerosis. 3. Pulmonary artery enlargement was present, this can be seen with pulmonary hypertension.
[2023-10-14 06:14] LABS: Barbiturates Screen,Urine Negative ng/ml (<200); Benzodiazepines Screen,Urine Negative ng/ml (<200)
[2023-10-14 06:15] LABS: Amphetamine/Metha Screen,Urine Negative ng/ml (<1000)
[2023-10-14 06:16] LABS: Cannabinoid Screen,Urine Negative ng/ml (<50); Cocaine Screen,Urine Negative ng/ml (<300)
[2023-10-14 06:17] LABS: Methadone Screen,Urine Negative ng/ml (<300)
[2023-10-14 06:18] LABS: Opiate Screen,Urine Negative ng/ml (<300); Phencyclidine Screen,Urine Negative ng/ml (<25)
--- NOTE | 2023-10-14 06:21 | PC.NURSE ---
contacted house for admission bed; diagnosis altered mental status, admit to hospitalist.
[2023-10-14] MEDS: 0.9 % SODIUM CHLORIDE 50 ML VIAL IV (06:30)
[2023-10-14] MEDS: IOPAMIDOL-370 (76%);100ML BOTTLE 80 ML IV (06:30)
--- NOTE | 2023-10-14 06:37 | PC.NURSE ---
report called to Earl RN #[id number], pt to go to floor via stretcher
--- NOTE | 2023-10-14 06:55 | PC.NURSE ---
Patient arrived to floor via stretcher from ED at 06:54.
--- NOTE | 2023-10-14 07:20 | P.HP_ITS ---
History of Present Illness *Admission Date: 10/14/23 *Reason for visit:: Changes in behavior, tremor, per family did not look right *History of present illness: This patient who is chronically on 3 L nasal cannula and uses a walker to get around, family was concerned because her behavior was off and she has picked up a tremor. Patient also is on antibiotics either for a UTI and or an abscess that was in her right axillary area. To meet the lady and you would not know anything was wrong with her and the family says she has improved a little bit from being at home. ER physician did testing and found a need to admit which I agree with [facility] Disclaimer: The information contained in this section may have been updated after the patient was seen, as this information can be updated by other users. Social History Smoking Status: Never smoker alcohol intake: never current occupational status: retired Travel in the last 8 weeks: None Review of Systems Review of Systems Review of systems:: pertinent systems reviewed and negative unless documented below Review of systems (narrative): Patient lying on bed alert and oriented answering my questions well., Family has come in and also giving history, they had a large amount of medication in the car I had them go out to get that so nursing can enter it into her chart. Constitutional Constitutional: Reports as per HPI, Reports body ache(s), Reports fatigue and Reports weakness Eyes Eyes: Reports as per HPI Comments: Patient did not have any change in vision ENT Ears, Nose, Mouth, and Throat: Reports dry mouth Comments: Mouth very dry also on oxygen per nasal cannula *Cardiovascular Cardiovascular: Reports acrocyanosis and Reports dyspnea on exertion Comments: Nailbeds on both hands have a slightly blueness to the, but patient has acceptable oxygenation level *Respiratory Respiratory: Reports dyspnea on exertion Comments: O2 dependent for several years *Gastrointestinal Gastrointestinal: Reports as per HPI Comments: Voiced no abdominal complaint *Genitourinary Genitourinary: Reports as per HPI Comments: Patient noted she is does pretty well with her urine but that is when she is feeling good and can use her walker to get to the bathroom *Musculoskeletal Musculoskeletal: Reports as per HPI, Reports abnormal gait and Reports muscle weakness Integumentary/Breasts Skin/Breast: Reports as per HPI *Neurologic Neurologic: Reports abnormal gait, Reports tremor(s) and Reports weakness Psychiatric Psychiatric: Reports as per HPI Comments: Per family her speech has improved and her mentation has improved compared to at the home, but stated that normally she is much more alert and and to mated right then she is now Endocrine Endocrine: Reports as per HPI and Reports fatigue Hematologic/Lymphatic Hematologic/Lymphatic: Reports as per HPI Allergic/Immunologic Allergic/Immunologic: Reports as per HPI Meds Home Medications and Allergies Home Medications ?Medication ?Instructions ?Recorded ?Confirmed ?Type amlodipine 5 mg tablet 5 mg PO DAILY 03/12/23 10/14/23 History atenolol 25 mg tablet 25 mg PO DAILY 03/12/23 10/14/23 History donepezil 10 mg tablet 10 mg PO DAILY 03/12/23 10/14/23 History duloxetine 60 mg capsule,delayed 60 mg PO DAILY 03/12/23 10/14/23 History release hydroxyzine HCl 25 mg tablet 12.5 - 25 mg PO Q6HP PRN Anxiety 03/12/23 10/14/23 History levothyroxine 125 mcg tablet 125 mcg PO DAILY 03/12/23 10/14/23 History pravastatin 20 mg tablet 20 mg PO HS 03/12/23 10/14/23 History trazodone 150 mg tablet 150 mg PO HS 03/12/23 10/14/23 History albuterol sulfate 2.5 mg/3 mL 2.5 mg inhalation Q4HP PRN 10/14/23 10/14/23 History (0.083 %) solution for nebulization Shortness Of Breath Or Wheezing famotidine 40 mg tablet 40 mg PO DAILY 10/14/23 10/14/23 History memantine 5 mg tablet 5 mg PO BID 10/14/23 10/14/23 History sacubitril 49 mg-valsartan 51 mg 1 tab PO BID 10/14/23 10/14/23 History tablet (Entresto) New Prescriptions to Start Prescriptions: Allergies Allergy/AdvReac Type Severity Reaction Status Date / Time sulfamethoxazole AdvReac Mild Nausea Verified 10/14/23 07:34 [From Bactrim] trimethoprim [From Bactrim] AdvReac Mild Nausea Verified 10/14/23 07:34 Exam Data for Last 24 hours Vital signs and Labs for Last 24 Hours: Temp Pulse Resp BP Pulse Ox O2 Del Method O2 Flow Rate 99 F 77 16 153/49 H 97 Nasal Cannula 4 10/14/23 06:35 10/14/23 06:35 10/14/23 06:35 10/14/23 06:35 10/14/23 05:30 10/14/23 06:35 10/14/23 06:35 Laboratory Results - last 24 hr 10/14/23 04:10: Urine Color Yellow, Urine Appearance Clear, Urine pH 8.0, Ur Specific [place] 1.020, Urine Protein Trace, Urine Glucose (UA) Negative, Urine Ketones 1+, Urine Blood Negative, Urine Nitrate Negative, Urine Bilirubin Negative, Urine Urobilinogen 2.0, Ur Leukocyte Esterase Negative, Urine RBC None, Urine WBC Occasional, Ur Squamous Epith Cells 3-5, Urine Bacteria Trace, Urine Opiates Screen Negative, Urine Methadone Screen Negative, Ur Barbituates Screen Negative, Ur Phencyclidine Scrn Negative, Ur Amphetamines Screen Negative, U Benzodiazepines Scrn Negative, Urine Cocaine Screen Negative, U Marijuana (THC) Screen Negative 10/14/23 04:18: WBC 9.1, RBC 3.56 L, Hgb 11.3 L, Hct 37.6, MCV 105.6 H, MCH 31.9 H, MCHC 30.2 L, RDW 13.7, Plt Count 133 L, MPV 9.0, Neut % (Auto) 86.1 H, Lymph % (Auto) 7.4 L, [place] % (Auto) 4.0, Eos % (Auto) 1.6, Baso % (Auto) 1.0, Neut # (Auto) 7.8, Lymph # (Auto) 0.7, [place] # (Auto) 0.4, Eos # (Auto) 0.1, Baso # (Auto) 0.1, Total Counted 100, Neutrophils % (Manual) 93 H, Lymphocytes % (Manual) 7 L, RBC Morphology Normal, Sodium 133 L, Potassium 5.1, Chloride 101, Carbon Dioxide 28, Anion Gap 9.1, BUN 19 H, Creatinine 0.80, Estimated Creat Clear 39, Estimated GFR 69, Est GFR ( Amer) 84, Glucose 124 H, Calcium 8.4, Total Bilirubin 1.3, AST 70 H, ALT 28, Alkaline Phosphatase 132 H, Troponin I < 0.01, NT-Pro-B Natriuret Pep 1450 H, Total Protein 6.8, Albumin 3.4 L, Globulin 3.4 H, Albumin/Globulin Ratio 1.0 L 10/14/23 04:46: SARS-CoV-2 (PCR) Not detected, Influenza A Untype (PCR) Not detected, Influenza Type B (PCR) Not detected 10/14/23 05:20: D-Dimer 0.55 H I & O for Last 24 hours: Intake & Output 10/11/23 10/12/23 10/13/23 10/14/23 23:59 23:59 23:59 23:59 Weight 113.398 kg Radiology Reports for the Last 24 Hours: Per report, CT scan of the chest showed multiple lower bilateral PEs Constitutional Constitutional: mild distress, obese, chronically ill appearing and cooperative Comments: Patient has mild tremor all over but she is able to make good eye contact answering questions well at this time. *Routine HEENT Exam Head: Present normocephalic Eye: Present EOMI and PERRL ENT: Present mucous membranes dry Comments: Very dry mouth O2 cannula in place *Routine Neck Exam Neck: Present supple and full ROM Comments: Very large neck but no masses found Routine Chest/Breast/Axilla Exam Axillae: Present erythema Comments: Healing wound from an abscess that the daughter described that has been treated with antibiotic and from what she was describing the cord did come out the skin is closed but there is still redness in the axillary area *Routine Respiratory Exam Respiratory: Present decreased breath sounds, prolonged expiratory phase, normal respiratory effort and able to speak in complete sentences Comments: Patient is in no respiratory distress at this time *Routine Cardiovascular Exam Cardiovascular: Present RRR, Normal S1, Normal S2 and murmur Comments: But a 2 out of 6 murmur systolic *Routine Abdominal Exam Abdominal: Present soft, normoactive bowel sounds and obese *Routine Rectal Exam Rectal:: deferred Comments:: Talk to patient's family who stated they have bathed her they stated that her skin on her buttocks is intact and besides a mild rash that has cleared on her abdomen her skin is in good shape *Routine Genitalia Exam Genitalia:: deferred *Routine Extremities Exam Extremities: Present normal capillary refill Comments: Able to move all extremities without any difficulty nailbeds appear to be slightly bluish Routine Back/Spine/Pelvis Exam Back/Spine: Present full ROM Comments: The patient is laying on the stretcher I did not have her stand sit up or move but she expressed no difficulty with being able to reposition herself and expressed no pain *Routine Skin Exam Skin: Present intact and lesions Comments: Healing lesion to the left axillary area from an abscess *Routine Neurological Exam Neurological: Present alert, oriented X3, CN II-XII intact, normal tone, vision grossly intact, hearing grossly intact and normal speech Comments: Per family she is improved but not quite her usual self, that she is a little more and to mated also has a generalized whole body tremor slight tremor to hands and feet Routine Psychiatric Exam Psychiatric: Present normal affect, normal thought process and cooperative H&P: Result Impressions 1. Altered mental status and behavior 2. Oxygen dependent with new findings on CT of multiple lower bilateral pulmonary emboli 3. Obesity, with decreased ability to ambulate must use the walker. Imaging and Cardiology CT scan - chest: Status: image reviewed by me Additional comments: Bilateral lower lobe multiple PE Assessment and Plan *Assessment and plan (1) Pulmonary embolism: Status: Acute Category: Medical Code(s): I26.99 - Other pulmonary embolism without acute cor pulmonale (2) AMS (altered mental status): Status: Acute Category: Medical Code(s): R41.82 - Altered mental status, unspecified (3) Tremor: Status: Acute Category: Medical Code(s): R25.1 - Tremor, unspecified (4) Oxygen dependent: Status: Acute Category: Medical Code(s): Z99.81 - Dependence on supplemental oxygen (5) Difficulty in walking: Status: Acute Category: Medical Code(s): R26.2 - Difficulty in walking, not elsewhere classified (6) Obesity: Status: Acute Category: Medical Code(s): E66.9 - Obesity, unspecified Plan 1. Oxygen dependent with new onset of bilateral pulmonary embolism, will start on heparin drip do cardiology consult for EKOS eval 2. Monitor hydration, and intake. Have physical therapy evaluate
[2023-10-14 08:22] LABS: Troponin I < 0.01 ng/ml (0.00-0.034)
--- NOTE | 2023-10-14 08:28 | HMH.PHAINT1 ---
Pharmacy Intervention Comments: MEDICATION RECONCILIATION COMPLETED ON PATIENT USING EXTERNAL FILL HISTORY FROM PHARMACY. -SHANTI COREAS, JENNYD
--- NOTE | 2023-10-14 08:45 | CA_ITS ---
APPROVED REPORT EXAM: Comprehensive 2D, Doppler, and color-flow Echocardiogram Glaze Handler: Mary Kay Estrada, RCS, RVS Ht: 5 ft 4 in Wt: 245lbs BSA: 2.13 BP: 153/49 mmHg Indications: Pulmonary Emboli, AMS, HTN, HLD, O2 dependent 2D Dimensions Left Atrium 4.73 cm F: 2.7 - 3.8 M-Mode Dimensions RVDd 1.72 cm (0.9-2.6) LA Diam 5.06 cm (1.9-4.0) LVDd 5.58 cm (3.5-5.7) LVDs 3.54 cm (3.5-5.7) IVSd 1.04 cm (0.6-1.1) PWd 0.89 cm (0.6-1.1) EF (Teich) 65.70% EPSs 0.25 cm FS 36.60% EDV (Teich) 152.40 mL TAPSE 2.54 (<1.7) ESV (Teich) 52.30 mL LV Diastology E Decel Time 273 (160-240 msec) E/A Ratio 1.13 MED A' 12.40 cm/s LAT A' 13.70 cm/s Aortic Valve SAFIA Index 1.06 cm2/m2 AoV Peak Zak. 179.0 (50-130 cm/s) AO Peak GR. 12.80 mmHg AO Mean GR. 6.80 (<5 mmHg) AO VTI 39.7 (18-25 cm) SAFIA (VTI) 2.30 (2.5-4.5 cm2) Mitral Valve MV A Velocity 112.0 (40-130 cm/s) E/A Ratio 1.13 MV Mean Gr. 3.30 (<2mmHg) Pulmonary Valve PV Peak Velocity 66.0 (50-150 cm/s) WV End VMAX 229.0 cm/s Tricuspid Valve TR P. Velocity 219.00 cm/s RAP Estimate 10.00 mmHg RVSP 29.10 mmHg Left Ventricle The left ventricle is normal size. The left ventricular systolic function is normal. The left ventricular ejection fraction is within the normal range. There is increased LV wall thickness. There is normal LV segmental wall motion. Diastolic function is indeterminate. LVEF is 55%. Right Ventricle Right ventricle is mildly dilated. Right ventricle is mildly hypokinetic. Atria Left atrium is severely dilated. The right atrium size is normal. There is no Doppler evidence of interatrial shunt. Aortic Valve The aortic valve leaflets are mildly thickened. There is no aortic valvular stenosis. Mild aortic regurgitation. Mitral Valve Mild mitral annular calcification. The mitral valve leaflets are mildly thickened. No evidence of mitral valve stenosis. Moderate mitral regurgitation. Tricuspid Valve The tricuspid valve leaflets are thin and pliable. Trace tricuspid regurgitation. RVSP is 20-25 mmHg. Pulmonic Valve The pulmonary valve is normal in structure. Mild pulmonic regurgitation. Great Vessels The aortic root is normal in size. The ascending aorta is not well-visualized. IVC is normal in size and collapses >50% with inspiration. Pericardium There is no pericardial effusion. Other Information Study Quality: Technically Difficult Conclusion Technically difficult study due to poor acoustic windows. Normal LV systolic function. Mild RV dilation with mild reduction in RV function. Severe LA dilation. Moderate MR. Mild AI, mild WV Electronically signed by : Lexi Watson MD 10/16/2023 01:05:07
[2023-10-14] MEDS: PANTOPRAZOLE 40MG TABLET 40 MG PO (08:52)
[2023-10-14] MEDS: DOCUSATE SODIUM 100 MG CAPSULE PO (08:52)
[2023-10-14] MEDS: LACTATED RINGERS 1000ML 1,000 ML 50 ML IV (08:52)
--- NOTE | 2023-10-14 08:59 | P.CONPHA_ITS ---
[facility] Pharmacy Heparin Dosing Demographic Data Admission date:: 10/14/23 Date: 10/14/23 Time: 08:59 Allergies Allergy/AdvReac Type Severity Reaction Status Date / Time sulfamethoxazole AdvReac Mild Nausea Verified 10/14/23 07:34 [From Bactrim] trimethoprim [From Bactrim] AdvReac Mild Nausea Verified 10/14/23 07:34 Height: 1.63 m Weight: 111.187 kg Indication Medication therapy:: Heparin Current Indications:: HIGH DOSE PROTOCOL - PE Current Active Problems (Updated 10/14/23 @ 10:48 by DONTAE Chance) Acute on chronic hypoxic respiratory failure (Acute) Obesity (Acute) Difficulty in walking (Acute) Oxygen dependent (Acute) Tremor (Acute) Pulmonary embolism (Acute) AMS (altered mental status) (Acute) Cough (Acute) Back pain (Acute) CVA?: No Bleeding problem?: No Kidney disease?: No [place]?: No Desired PTT range:: 50-75 seconds Labs Anticoagulation Lab Results:: 10/14/23 04:18 Hgb 11.3 L Hct 37.6 Plt Count 133 L Monitoring Dose Monitor 1: Date: 10/14/23 Time: 08:30 PTT Result:: 26.0 SECONDS Infusion Rate:: RECOMMEND STARTING HEPARIN DRIP AT 2000 UNITS/HOUR = 40 ML/HOUR AND BOLUSING 8900 UNITS HEPARIN IV ONCE. Comment:: PLATELET COUNT = 133K Dose Monitor 2: Date: 10/14/23 Time: 10:45 PTT Result:: GREATER THAN 139.0 SECONDS Infusion Rate:: RECOMMEND CONTINUING CURRENT HEPARIN DRIP RATE OF 2000 UNITS/HOUR = 40 ML/HOUR. Comment:: LAB HAD ISSUES WITH ANALYZER AND HAD TO RE-RUN THIS PTT THREE TIMES, RESULTING IN A TWO HOUR DELAY TO PTT RESULTS. NEXT PTT ORDERED FOR 13:25. Dose Monitor 3: Date: 10/14/23 Time: 13:25 PTT Result:: GREATER THAN 139.0 SECONDS Infusion Rate:: RECOMMEND CONTINUING CURRENT HEPARIN DRIP RATE OF 2000 UNITS/HOUR = 40 ML/HOUR. Dose Monitor 4: Date: 10/14/23 Time: 16:15 PTT Result:: GREATER THAN 139.0 SECONDS Infusion Rate:: FABIANA RECOMMENDED DECREASING HEPARIN DRIP RATE TO 1700 UNITS/HOUR = 34 ML/HOUR. Dose Monitor 5: Date: 10/14/23 Time: 21:00 PTT Result:: 55.2 SECONDS Infusion Rate:: HEPARIN DRIP STOPPED AT 17:50, PATIENT WAS STARTED ON ELIQUIS BY . Core Measures Is INR > or = 2 at discharge?: No Most Recent Labs:: Laboratory Results - last 24 hr 10/14/23 04:10: Urine Color Yellow, Urine Appearance Clear, Urine pH 8.0, Ur Specific [place] 1.020, Urine Protein Trace, Urine Glucose (UA) Negative, Urine Ketones 1+, Urine Blood Negative, Urine Nitrate Negative, Urine Bilirubin Negative, Urine Urobilinogen 2.0, Ur Leukocyte Esterase Negative, Urine RBC None, Urine WBC Occasional, Ur Squamous Epith Cells 3-5, Urine Bacteria Trace, Urine Opiates Screen Negative, Urine Methadone Screen Negative, Ur Barbituates Screen Negative, Ur Phencyclidine Scrn Negative, Ur Amphetamines Screen Negative, U Benzodiazepines Scrn Negative, Urine Cocaine Screen Negative, U Marijuana (THC) Screen Negative 10/14/23 04:18: WBC 9.1, RBC 3.56 L, Hgb 11.3 L, Hct 37.6, MCV 105.6 H, MCH 31.9 H, MCHC 30.2 L, RDW 13.7, Plt Count 133 L, MPV 9.0, Neut % (Auto) 86.1 H, Lymph % (Auto) 7.4 L, [place] % (Auto) 4.0, Eos % (Auto) 1.6, Baso % (Auto) 1.0, Neut # (Auto) 7.8, Lymph # (Auto) 0.7, [place] # (Auto) 0.4, Eos # (Auto) 0.1, Baso # (Auto) 0.1, Total Counted 100, Neutrophils % (Manual) 93 H, Lymphocytes % (Manual) 7 L, RBC Morphology Normal, Sodium 133 L, Potassium 5.1, Chloride 101, Carbon Dioxide 28, Anion Gap 9.1, BUN 19 H, Creatinine 0.80, Estimated Creat Clear 39, Estimated GFR 69, Est GFR ( Amer) 84, Glucose 124 H, Calcium 8.4, Total Bilirubin 1.3, AST 70 H, ALT 28, Alkaline Phosphatase 132 H, Troponin I < 0.01, NT-Pro-B Natriuret Pep 1450 H, Total Protein 6.8, Albumin 3.4 L, Globulin 3.4 H, Albumin/Globulin Ratio 1.0 L 10/14/23 04:46: SARS-CoV-2 (PCR) Not detected, Influenza A Untype (PCR) Not detected, Influenza Type B (PCR) Not detected 10/14/23 05:20: D-Dimer 0.55 H 10/14/23 07:40: Troponin I < 0.01 If INR was < than 2.0 why was therapy stopped?: SWITCHED TO ELIQUIS Were Heparin and Warfarin started on the same day?: No If not, why?: PATIENT STARTED ON ELIQUIS.
[2023-10-14] MEDS: HEPARIN SODIUM 5,000 UNIT/ML VIAL 8900 UNIT IV (09:34)
[2023-10-14] MEDS: HEPARIN SODIUM,PORCINE/D5W 500 ML 40 UNIT IV (09:36)
[2023-10-14] MEDS: ONDANSETRON 4MG/2ML VIAL 4 MG IV ×2 (09:38→22:59)
--- NOTE | 2023-10-14 09:54 | HMH.OTEV ---
OT Inpatient Evaluation Rehab OT IP Evaluation Start: 10/14/23 09:01 Freq: ONCE Status: Active Protocol: Document 10/14/23 09:49 [facility] (Rec: 10/14/23 09:54 [facility] [id number]) Rehab OT IP Assessment Subjective History Pt oriented x 3 on arrival. Pt agreeable to engage in therapy evaluation. Pt admitted on 10/14/23 due to AMS. History and physical report: This patient who is chronically on 3 L nasal cannula and uses a walker to get around, family was concerned because her behavior was off and she has picked up a tremor. Patient also is on antibiotics either for a UTI and or an abscess that was in her right axillary area. To meet the lady and you would not know anything was wrong with her and the family says she has improved a little bit from being at home. ER physician did testing and found a need to admit which I agree with Subjective I live with my grandchildren. Pt reports prior to being in the hospital, pt lived with her grandchildren. Pt claims normally she does require assistance with ADLs. Pt is dependent upon family for completion of all IADLs. Pt does use a walker during functional transfers. Pt is on oxygen at all times. Objective Patient Orientation Person,Place,Birthday Right Upper Extremity Gross ROM Min Limitation <25% Left Upper Extremity Gross ROM Min Limitation <25% Shoulder ROM Limitations Muscle Weakness Elbow ROM Limitations Muscle Weakness Wrist Limitations of Range of Motion Muscle Weakness Bed Mobility bed mobility-scooting,bed mobility - supine/sit Assist Level Minimal x 2 (25% assist) Rehab OT IP prob,goals,plan Problems Date of Evaluation: 10/14/23 OT IP Problems Bed Mobility,Transfers,Balance ,Self care,Safety Rehab Potential Rehab Potential Good Equipment Needs Assistive Devices Rolling / Wheeled Walker Plan OT intervention Plan Bed Mobility,Transfers,Balance ,Self care,Safety,Therapeutic Exercise OT Plan Frequency Daily Duration LOS Discharge Goals Bed Mobility Ability Assistance x1 Sit to Stand Chair Transfer Ability Moderate x 1 (50% assist) Chair Transfer Ability Moderate x 1 (50% assist) Chair Transfer Technique Sit to/from Ambulatory Chair Transfer Assistive Devices Rolling Walker Feeding Ability Assist with Tray Set Up Lower Body Dressing Ability Moderate Assistance Upper Body Dressing Ability Minimal Assistance Bathing Ability Moderate Assistance Performing Toilet Hygiene Ability Minimal Assistance Overall Commode/Toilet Transfer Ability Minimal Assistance Commode/Toilet Transfer Technique Sit to/from Ambulatory Commode/Toilet Transfer Assistive Grab Bars Devices Oral Care Assist Standby Assistance Decrease in Endurance Yes Discharge Plan OT Discharge Plan Pt will continue to be seen for OT services while at [facility]. At this time, therapist recommends pt complete short term rehab at SNF following discharge. If patient demonstrates significant improvement while at [facility], pt could possibly return home with 24/7 care and OT evaluation. Continued skilled therapy services is important in order for patient to improve strength, safety, endurance, ADL independence, and functional transfers to reach OF. Eval Complexity Eval Charge Codes 37076 - Moderate Complexity PHYSICIAN CERTIFICATION: I certify the specified therapy services for Patito Garcia are required, authorized, and reviewed every 30 days.
--- NOTE | 2023-10-14 10:14 | HMH.PTEV ---
Physical Therapy Evaluation Rehab PT IP Evaluation Start: 10/14/23 09:01 Freq: ONCE Status: Active Protocol: Document 10/14/23 09:59 SANJANA (Rec: 10/14/23 10:13 SANJANA [id number]) Subjective/History History History This is the initial inpatient eval for Patito Garcia, a 78 yof admitted to the hospital for altered mental status that was detected by her family. This patient remains on 3 L of nasal canula oxygen at all times. Patient is currently on antibiotics either for a UTI and or an abscess that was in her right axillary area. No past medical history was noted from the patient or from the doctors note upon chart review. Subjective Subjective Patient stated that I live at home with my three grand kids . Also stated that all of her grandkids were in their 30s. Patient lives in a house with no steps to get into the house . Patient stated that she uses a walker at home, she needs assistance with showering, dressing, and cooking meals. New diagnosis of cancer in past 12 No months? Rehab PT IP Eval Objective Appearance Patient Behavior Appropriate,Cooperative Patient Orientation Person,Place,Birthday Difficulty following instructions none Speech Pattern Clear,Appropriate Ambulation Patient Able to Ambulate No Balance Ability to Arise Able, uses arms to help Sitting Balance Steady, safe Dynamic Sitting Balance Ability Normal Transfers Bed Transfer Ability Minimal x 2 (25% assist) Rehab PT IP prob,goals,plan Problems Date of Evaluation: 10/14/23 PT IP Problems Bed Mobility,Transfers,Gait, Balance,Self care Rehab Potential Rehab Potential Good Equipment Needs Assistive Devices Rolling / Wheeled Walker Plan PT Intervention Plan Bed Mobility,Transfers,Gait, Balance,Self care PT Plan Frequency Daily Duration LOS Discharge Goals Bed Transfer Ability Minimal x 1 (25% assist) Sit to Stand Chair Transfer Ability Minimal x 1 (25% assist) Ambulation Assistive Device Rolling Walker Ambulation Distance (feet) 25 Discharge Plan PT Discharge Plan Patient is most appropriate for placement in a SNF at this time for improvements to her PLOF. Skilled therapy required for bed mobility, transfers, strengthening, endurance, and gait. Eval Complexity Eval Charge Codes 89867 - High Complexity PHYSICIAN CERTIFICATION: I certify the specified therapy services for Patito Lerma Hope are required, authorized, and reviewed every 30 days.
--- NOTE | 2023-10-14 10:43 | EXP.CARD.CON ---
History of Present Illness History of Present Illness Consult date: 10/14/23 Requesting physician: Miguel Dash Chief complaint: pulmonary embolism History of present illness: 78-year-old white female without known cardiovascular disease but history of hypertension and COPD on 3 L at baseline admitted through the ER last night with altered mental status and acute bilateral PE. We are consulted for PE. Patient is a poor historian and there is no family available at this time so history is also obtained from chart and medical staff. Patient was reportedly brought in by family with complaint of cough, pallor, and altered mental status. Workup was fairly benign but she was going to be admitted for the ongoing altered mental status. A CTA eventually returned showing bilateral PEs with low clot burden but evidence of right heart strain. Echo was pending. Her vitals were normal. Labs revealed hypercarbia with carbon oxide at 51, troponin negative, proBNP 1450, EKG sinus rhythm without ischemia or ectopy. Patient's chart reveals Entresto but she is not clear whether she sees a application integration specialist or has any cardiac history but states she may have seen a application integration specialist in [place] at some point. Currently stable on a heparin drip. She has noted 3/6 systolic murmur on exam. [facility] Disclaimer: The information contained in this section may have been updated after the patient was seen, as this information can be updated by other users. Social History Smoking Status: Never smoker alcohol intake: never current occupational status: retired Travel in the last 8 weeks: None Review of Systems Constitutional Constitutional: Reports weakness Eyes Eyes: Denies loss of vision ENT Ears, Nose, Mouth, and Throat: Denies hearing loss *Cardiovascular Cardiovascular: Denies chest pain and Reports dyspnea *Respiratory Respiratory: Denies cough and Reports dyspnea *Gastrointestinal Gastrointestinal: Denies change in stool character, Denies nausea and Denies vomiting *Musculoskeletal Musculoskeletal: Reports abnormal gait Integumentary/Breasts Skin/Breast: Denies changing lesions *Neurologic Neurologic: Reports abnormal gait, Denies loss of vision, Reports tremor(s) and Reports weakness Exam Data for Last 24 hours Vital signs and Labs for Last 24 Hours: Temp Pulse Resp BP Pulse Ox O2 Del Method O2 Flow Rate 99.9 F H 80 20 126/55 L 88 L Nasal Cannula 4 10/14/23 08:00 10/14/23 08:00 10/14/23 08:00 10/14/23 08:00 10/14/23 08:00 10/14/23 09:00 10/14/23 09:00 Laboratory Results - last 24 hr 10/14/23 04:10: Urine Color Yellow, Urine Appearance Clear, Urine pH 8.0, Ur Specific Reynolds 1.020, Urine Protein Trace, Urine Glucose (UA) Negative, Urine Ketones 1+, Urine Blood Negative, Urine Nitrate Negative, Urine Bilirubin Negative, Urine Urobilinogen 2.0, Ur Leukocyte Esterase Negative, Urine RBC None, Urine WBC Occasional, Ur Squamous Epith Cells 3-5, Urine Bacteria Trace, Urine Opiates Screen Negative, Urine Methadone Screen Negative, Ur Barbituates Screen Negative, Ur Phencyclidine Scrn Negative, Ur Amphetamines Screen Negative, U Benzodiazepines Scrn Negative, Urine Cocaine Screen Negative, U Marijuana (THC) Screen Negative 10/14/23 04:18: WBC 9.1, RBC 3.56 L, Hgb 11.3 L, Hct 37.6, MCV 105.6 H, MCH 31.9 H, MCHC 30.2 L, RDW 13.7, Plt Count 133 L, MPV 9.0, Neut % (Auto) 86.1 H, Lymph % (Auto) 7.4 L, [place] % (Auto) 4.0, Eos % (Auto) 1.6, Baso % (Auto) 1.0, Neut # (Auto) 7.8, Lymph # (Auto) 0.7, [place] # (Auto) 0.4, Eos # (Auto) 0.1, Baso # (Auto) 0.1, Total Counted 100, Neutrophils % (Manual) 93 H, Lymphocytes % (Manual) 7 L, RBC Morphology Normal, Sodium 133 L, Potassium 5.1, Chloride 101, Carbon Dioxide 28, Anion Gap 9.1, BUN 19 H, Creatinine 0.80, Estimated Creat Clear 39, Estimated GFR 69, Est GFR ( Amer) 84, Glucose 124 H, Calcium 8.4, Total Bilirubin 1.3, AST 70 H, ALT 28, Alkaline Phosphatase 132 H, Troponin I < 0.01, NT-Pro-B Natriuret Pep 1450 H, Total Protein 6.8, Albumin 3.4 L, Globulin 3.4 H, Albumin/Globulin Ratio 1.0 L 10/14/23 04:46: SARS-CoV-2 (PCR) Not detected, Influenza A Untype (PCR) Not detected, Influenza Type B (PCR) Not detected 10/14/23 05:20: D-Dimer 0.55 H 10/14/23 07:40: Troponin I < 0.01 10/14/23 08:30: APTT 26.0 L I & O for Last 24 hours: Intake & Output 10/11/23 10/12/23 10/13/23 10/14/23 23:59 23:59 23:59 23:59 Intake Total 60 / 60 Output Total 150 / 150 Balance -90 / -90 Weight 245 lb 2.006 oz Constitutional Constitutional: no acute distress and cooperative *Routine HEENT Exam Eye: Present PERRL *Routine Respiratory Exam Respiratory: Present CTA bilaterally; Absent accessory muscle use, wheezes or crackles *Routine Cardiovascular Exam Cardiovascular: Present RRR, Normal S1, Normal S2 and murmur (3/6 systolic ejection murmur); Absent gallop or rubs *Routine Abdominal Exam Abdominal: Present soft; Absent tenderness *Routine Extremities Exam Extremities: Present pulses intact; Absent cyanosis or edema *Routine Skin Exam Skin: Present intact; Absent erythema or wounds *Routine Neurological Exam Neurological: Present alert and oriented X3 Routine Psychiatric Exam Psychiatric: Present cooperative Meds Home Medications and Allergies Home Medications ?Medication ?Instructions ?Recorded ?Confirmed ?Type amlodipine 5 mg tablet 5 mg PO DAILY 03/12/23 10/14/23 History atenolol 25 mg tablet 25 mg PO DAILY 03/12/23 10/14/23 History donepezil 10 mg tablet 10 mg PO DAILY 03/12/23 10/14/23 History duloxetine 60 mg capsule,delayed 60 mg PO DAILY 03/12/23 10/14/23 History release hydroxyzine HCl 25 mg tablet 12.5 - 25 mg PO Q6HP PRN Anxiety 03/12/23 10/14/23 History levothyroxine 125 mcg tablet 125 mcg PO DAILY 03/12/23 10/14/23 History pravastatin 20 mg tablet 20 mg PO HS 03/12/23 10/14/23 History trazodone 150 mg tablet 150 mg PO HS 03/12/23 10/14/23 History albuterol sulfate 2.5 mg/3 mL 2.5 mg inhalation Q4HP PRN 10/14/23 10/14/23 History (0.083 %) solution for nebulization Shortness Of Breath Or Wheezing famotidine 40 mg tablet 40 mg PO DAILY 10/14/23 10/14/23 History memantine 5 mg tablet 5 mg PO BID 10/14/23 10/14/23 History sacubitril 49 mg-valsartan 51 mg 1 tab PO BID 10/14/23 10/14/23 History tablet (Entresto) New Prescriptions to Start Prescriptions: Allergies Allergy/AdvReac Type Severity Reaction Status Date / Time sulfamethoxazole AdvReac Mild Nausea Verified 10/14/23 07:34 [From Bactrim] trimethoprim [From Bactrim] AdvReac Mild Nausea Verified 10/14/23 07:34 Assessment and Plan *Assessment and plan (1) Pulmonary embolism: Status: Acute Category: Medical Code(s): I26.99 - Other pulmonary embolism without acute cor pulmonale (2) AMS (altered mental status): Status: Acute Category: Medical Code(s): R41.82 - Altered mental status, unspecified (3) Acute on chronic hypoxic respiratory failure: Status: Acute Category: Medical Code(s): J96.21 - Acute and chronic respiratory failure with hypoxia Plan Acute Bilateral PE - new dx this admission - CT -multiple small bilateral lower lobe pulmonary emboli, clot burden is low, evidence of right heart strain. Enlarged pulmonary artery. -Echo is pending -Heart rate 80s -O2 88% on 4 L, she is on 3 L at baseline -Continue heparin drip for now, anticipate change to treatment dose Eliquis Altered mental status -Normal UA -Possibly from hypercarbia/hypoxia -Defer to primary service Acute on chronic hypoxic respiratory failure secondary to COPD -Patient on 3 L/min at baseline -Was hypoxic on 4 L here -Carbon oxide 51 Heart murmur -Unclear history, patient thinks she may have seen a application integration specialist before -Echo pending -Of note she is on Entresto Addendum: Prelim ECHO shows normal EF. mild RV dilation. Severe LA dilation and moderate to severe MR. These are chronic findings and can be followed up outpatient. Ok to transition patient to [facility] from our standpoint. She will need f/u in our office 1-2 weeks post discharge.
[2023-10-14 13:21] LABS: PTT Heparin (inpatient only) > 139.0 Seconds (50-75)
[2023-10-14 14:13] LABS: PTT Heparin (inpatient only) > 139.0 Seconds (50-75)
--- NOTE | 2023-10-14 14:14 | PC.NURSE ---
CONTACTED PHARMACY ABOUT LAB RESULT OF APTT >139 IN REGARDS TO HEPARIN DRIP. THEY SAID TO CONTINUE THE SAME RATE
[2023-10-14] MEDS: ACETAMINOPHEN 325MG TAB 650 MG PO ×2 (14:54→22:54)
--- NOTE | 2023-10-14 14:57 | CARE MANAGER ---
Addendum entered by Ilene Macias 10/15/23 14:18: Andreas leslie/ [facility] stated that patient has been accepted for their services. Addendum entered by Ilene Macias 10/15/23 09:31: Patient does not have a preference as to which home health agency. I will set home health services up today. Per MD the patient will discharge home this afternoon. Original Note: Spoke with patient this afternoon regarding discharge planning. We discussed that PT/OT recommended SNF, but she was adamant that she would return home with HH services and family assistance.
[2023-10-14 17:15] LABS: PTT Heparin (inpatient only) > 139.0 Seconds (50-75)
--- NOTE | 2023-10-14 17:15 | PC.NURSE ---
CRITICAL PTT OF >139 REPORTED FROM LAB. OUTSIDE PHARMACY CONTACTED. ADVISED TO ADJUST FROM 40/HR TO 34/HR.
--- NOTE | 2023-10-14 17:56 | EXP.EVENT.NO ---
Patient reevaluated after a.m. admission. Patient evaluated by cardiology with no need for EKOS. Will discontinue heparin gtt. and start Eliquis 10 mg p.o. twice daily. Patient still suffering from pleuritic chest discomfort. Continue as needed medications and wean oxygen as tolerated.
[2023-10-14] MEDS: APIXABAN 5MG TABLET 10 MG PO (18:26)
--- NOTE | 2023-10-14 18:36 | PC.NURSE ---
PT WAS ADMITTED THIS MORNING FROM ER. VSS. PT HAS BEEN ON 4LNC AND HAS TOLERATED WELL WITH SATS OF 95-96%. PT BUMPED TO 3L AND TOLERATING WELL WITH SATS 94-96%. LUNG SOUNDS DIMINISHED AND BOWEL SOUNDS ACTIVE. PUREWICK IN PLACE AND URINE OUTPUT IS ADEQUATE- SEE I&O. PT COMPLAINED OF BACK PAIN AND WAS TREATED PER MAR WITH RESOLUTION OF SYMPTOMS. PT WAS ALSO TREATED PER MAR FOR NAUSEA. PT TAKEN OFF OF HEPARIN DRIP AND STARTED ON ORAL ELIQUIS. FAMILY AT BEDSIDE. CALL LIGHT IN REACH. PT HAS NO COMPLAINTS AT THIS TIME.
[2023-10-14] MEDS: MEMANTINE 5 MG 5 EACH PO (20:16)
[2023-10-14] MEDS: PRAVASTATIN 20MG TAB 20 MG PO (20:16)
[2023-10-14] MEDS: SACUBITRIL VALSARTAN 1 EACH PO (20:17)
[2023-10-14] MEDS: PATIENT'S OWN HOME MEDICATION (Trazodone 150 mg tablet) 150 EACH PO (20:17)
[2023-10-14 21:30] LABS: PTT Heparin (inpatient only) 55.2 Seconds (50-75)
[2023-10-14] MEDS: IPRATROPIUM/ALBUTEROL 3 ML NEB IH (22:50)
[2023-10-14] MEDS: METHYLPREDNISOLONE SOD SUCC 125MG VIAL 80 MG IV (23:00)
[2023-10-14] MEDS: MORPHINE 2MG/ML SYRINGE 2 MG IV (23:38)
[2023-10-15] VITALS: BP 115/63; PULSE 88; PULSE 90; RESP 18; TEMP 36.8; O2SAT 97
[2023-10-15 00:01] LABS: Troponin I 0.02 ng/ml (0.00-0.034)
[2023-10-15 04:00] VITALS: BP 126/49; PULSE 70; PULSE 74; RESP 18; TEMP 37.1; O2SAT 96; BMI 40.6
[2023-10-15 06:08] VITALS: PULSE 71; PULSE 73; O2SAT 94
[2023-10-15] MEDS: IPRATROPIUM/ALBUTEROL 3 ML NEB IH ×2 (06:08→13:14)
[2023-10-15 07:22] LABS: Basophils % 0.3 % (0.1-2.0); Eosinophils % 0.3 % (0.1-12.0); Hematocrit 38.7 % (37.0-47.0); Hemoglobin 11.7 g/dL (12.2-16.2); Lymphocytes # 0.9 K/mm3 (0.7-4.5); Lymphocytes % 9.9 % (10-50); Mean Corpuscular HGB Conc 30.1 g/dL (31.8-35.4); Mean Corpuscular Hemoglobin 31.1 pg (27.0-31.2); Mean Corpuscular Volume 103.3 fl (81-99); Mean Platelet Volume 9.1 fl (7.4-10.4); Monocytes # 0.2 K/mm3 (0.1-1.0); Monocytes % 2.4 % (1.7-9.3); Neutrophils # 7.8 K/mm3 (1.8-7.8); Platelet Count 151 K/mm3 (142-424); Red Blood Count 3.75 M/mm3 (4.20-5.40); Red Cell Distribution Width 13.6 % (11.5-17.5)
[2023-10-15 07:27] LABS: MANUAL DIFFERENTIAL MANUAL DIFFERENTIAL (MANUAL DIFF)
--- NOTE | 2023-10-15 07:59 | CA_ITS ---
FINAL REPORT CLINICAL HISTORY: PE'S,SOA,PT ON ASA,OBESITY COMPARISON: None FINDINGS: Color Doppler, duplex Doppler and compression sonography of the bilateral lower extremities was performed. There is no evidence of deep venous thrombosis from the level of the groin to the calf. The deep veins are patent and compressible. IMPRESSION: No evidence of deep venous thrombosis bilateral lower extremities. Reviewed, Interpreted and Dictated by John Smith III, MD Transcribed by Constance Guzman Authenticated and [facility]
[2023-10-15 08:00] VITALS: BP 118/93; PULSE 70; PULSE 72; TEMP 36.2; O2SAT 96
--- NOTE | 2023-10-15 08:27 | EXP.DC.SUM ---
General Admission date:: 10/14/23 Discharge date: 10/15/23 HPI HPI HPI: This patient who is chronically on 3 L nasal cannula and uses a walker to get around, family was concerned because her behavior was off and she has picked up a tremor. Patient also is on antibiotics either for a UTI and or an abscess that was in her right axillary area. To meet the lady and you would not know anything was wrong with her and the family says she has improved a little bit from being at home. ER physician did testing and found a need to admit which I agree with Hospital Course Hospital Course Hospital Course: Patient came to hospital with altered mental status and increased work of breathing. Patient diagnosed with bilateral pulmonary embolus. CTA chest 10/13 showed small bilateral pulmonary embolus with some evidence of right heart strain. Echocardiogram done 10/13 showed no right heart strain. Cardiology consulted 10/13 and deemed patient not appropriate for EKOS. Patient initially started on heparin gtt., then transition to Eliquis 10/13 successfully. Patient evaluated by PT/OT, and deemed appropriate for home with home health. Patient offered SNF placement but declined. Patient ultimately discharged home with home health 10/15/2023 on Eliquis 30-day starter pack. Ultrasound lower extremity Dopplers done 10/14 prior to hospital disposition. Patient will follow-up with Dr. Gonzalez, senior android developer as outpatient for thromboembolic workup. Patient also discharged with as needed oxycodone in conjunction with as needed Tylenol for PE related pain. Patient sent home with nebulizer as needed, and as needed DuoNebs. Patient also sent home with rescue albuterol MDI inhaler by Dr. Dash at time of hospital discharge. In terms of patient's altered mental status workup, patient had CT head done 10/13 within normal limits. Patient also had CT abdomen/pelvis done 10/13 without acute abnormalities. Patient's mental status improved with treatment of bilateral pulmonary embolus. Patient discharged with instruction to follow-up with primary care physician for further mentation issues. Patient also had right axillary infection present prior to hospitalization. Patient on Bactrim 1 week prior to hospitalization. Patient's Bactrim held during hospitalization due to bilateral pulmonary embolus with right heart strain evaluation. Patient showed no fevers, or leukocytosis during hospitalization. After stabilization of pulmonary embolization, patient restarted on Bactrim x 7 days 10/15/[address] Dash as outpatient with instructions to follow-up with primary care physician for further right axillary infection treatment. Patient's right axillary region thoroughly explored by Dr. Dash prior to hospital discharge, without signs of abscess requiring emergent incision and drainage. Of special note, at time of hospital discharge patient states that she did not want to continue Bactrim because it tastes bad. Dr. Dash therefore discontinued Bactrim, and placed patient on Levaquin/doxycycline for left axillary cellulitis at time of hospital disposition. Exam Data for Last 24 hours Vital signs and Labs for Last 24 Hours: Temp Pulse Resp BP Pulse Ox O2 Del Method O2 Flow Rate 98.8 F 71 18 126/49 L 94 L Venturi Mask 9 10/15/23 04:00 10/15/23 06:08 10/15/23 04:00 10/15/23 04:00 10/15/23 06:08 10/15/23 06:36 10/15/23 06:36 FiO2 35 10/15/23 06:08 Laboratory Results - last 24 hr 10/14/23 08:30: APTT 26.0 L 10/14/23 11:20: APTT > 139.0 H* 10/14/23 13:30: APTT > 139.0 H* 10/14/23 16:30: APTT > 139.0 H* 10/14/23 21:00: APTT 55.2 10/14/23 23:30: Troponin I 0.02 10/15/23 06:42: WBC 9.0, RBC 3.75 L, Hgb 11.7 L, Hct 38.7, MCV 103.3 H, MCH 31.1, MCHC 30.1 L, RDW 13.6, Plt Count 151, MPV 9.1, Neut % (Auto) 87.0 H, Lymph % (Auto) 9.9 L, [place] % (Auto) 2.4, Eos % (Auto) 0.3, Baso % (Auto) 0.3, Neut # (Auto) 7.8, Lymph # (Auto) 0.9, [place] # (Auto) 0.2, Eos # (Auto) 0.0, Baso # (Auto) 0.0 I & O for Last 24 hours: Intake & Output 10/12/23 10/13/23 10/14/23 10/15/23 23:59 23:59 23:59 23:59 Intake Total 876 / 876 Output Total 625 / 625 400 / 400 Balance 251 / 251 -400 / -400 Weight 111.187 kg 107.91 kg Microbiology Reports for the Last 24 Hours: Microbiology 10/14/23 05:20 Blood Blood Culture - Preliminary NO GROWTH AFTER 24 HOURS 10/14/23 05:20 Blood Blood Culture - Preliminary NO GROWTH AFTER 24 HOURS Constitutional Constitutional: no acute distress *Routine HEENT Exam Head: Present normocephalic Eye: Present EOMI and normal accommodation ENT: Present mucous membranes moist *Routine Neck Exam Neck: Present supple and full ROM *Routine Respiratory Exam Respiratory: Present prolonged expiratory phase and diminished air movement *Routine Cardiovascular Exam Cardiovascular: Present RRR, Normal S1 and Normal S2 *Routine Abdominal Exam Abdominal: Present soft and normoactive bowel sounds *Routine Extremities Exam Extremities: Present full ROM and normal capillary refill Comments: Right axillary region with some erythema and arm pit, nontender, without noticeable fluctuance, not warm *Routine Skin Exam Skin: Present intact *Routine Neurological Exam Neurological: Present alert, oriented X3 and CN II-XII intact Results Data Completed and Pending Labs on day of discharge: Labs from last 24 hours 10/15/23 10/14/23 10/14/23 06:42 23:30 21:00 WBC 9.0 RBC 3.75 L Hgb 11.7 L Hct 38.7 MCV 103.3 H MCH 31.1 MCHC 30.1 L RDW 13.6 Plt Count 151 MPV 9.1 Neut % (Auto) 87.0 H Lymph % (Auto) 9.9 L [place] % (Auto) 2.4 Eos % (Auto) 0.3 Baso % (Auto) 0.3 Neut # (Auto) 7.8 Lymph # (Auto) 0.9 [place] # (Auto) 0.2 Eos # (Auto) 0.0 Baso # (Auto) 0.0 APTT 55.2 Troponin I 0.02 10/14/23 10/14/23 10/14/23 16:30 13:30 11:20 WBC RBC Hgb Hct MCV MCH MCHC RDW Plt Count MPV Neut % (Auto) Lymph % (Auto) [place] % (Auto) Eos % (Auto) Baso % (Auto) Neut # (Auto) Lymph # (Auto) [place] # (Auto) Eos # (Auto) Baso # (Auto) APTT > 139.0 H* > 139.0 H* > 139.0 H* Troponin I 10/14/23 08:30 WBC RBC Hgb Hct MCV MCH MCHC RDW Plt Count MPV Neut % (Auto) Lymph % (Auto) [place] % (Auto) Eos % (Auto) Baso % (Auto) Neut # (Auto) Lymph # (Auto) [place] # (Auto) Eos # (Auto) Baso # (Auto) APTT 26.0 L Troponin I Preliminary micro results at discharge 10/14/23 05:20 Blood Culture - Preliminary Blood NO GROWTH AFTER 24 HOURS 10/14/23 05:20 Blood Culture - Preliminary Blood NO GROWTH AFTER 24 HOURS Impressions Impressions: Echocardiogram 10/14/2023: Results currently pending 10/14/2023 CTA chest IMPRESSION: 1. Multiple small bilateral lower lobe pulmonary emboli, the clot burden is low. There is evidence of right heart strain, correlation with echocardiography recommended. 2. Coronary atherosclerosis. 3. Pulmonary artery enlargement was present, this can be seen with pulmonary hypertension. 10/14/2023 CT head IMPRESSION: No acute process noted. 10/14/2023 CT abdomen/pelvis IMPRESSION: 1. No acute abdominal or pelvic process. 2. Coronary atherosclerosis. 3. Sigmoid diverticulosis without diverticulitis. 4. Diffuse degenerative disc disease with multilevel vacuum disc phenomena and scoliosis. Consider MRI for further evaluation as clinically indicated. DS: Diagnosis Discharge Diagnosis (1) Pulmonary embolism: Status: Acute Code(s): I26.99 - Other pulmonary embolism without acute cor pulmonale (2) AMS (altered mental status): Status: Acute Code(s): R41.82 - Altered mental status, unspecified (3) Tremor: Status: Acute Code(s): R25.1 - Tremor, unspecified (4) Oxygen dependent: Status: Acute Code(s): Z99.81 - Dependence on supplemental oxygen (5) Difficulty in walking: Status: Acute Code(s): R26.2 - Difficulty in walking, not elsewhere classified (6) Obesity: Status: Acute Code(s): E66.9 - Obesity, unspecified Meds Home Medications and Allergies Home Medications ?Medication ?Instructions ?Recorded ?Confirmed ?Type amlodipine 5 mg tablet 5 mg PO DAILY 03/12/23 10/14/23 History atenolol 25 mg tablet 25 mg PO DAILY 03/12/23 10/14/23 History donepezil 10 mg tablet 10 mg PO DAILY 03/12/23 10/14/23 History duloxetine 60 mg capsule,delayed 60 mg PO DAILY 03/12/23 10/14/23 History release hydroxyzine HCl 25 mg tablet 12.5 - 25 mg PO Q6HP PRN Anxiety 03/12/23 10/14/23 History levothyroxine 125 mcg tablet 125 mcg PO DAILY 03/12/23 10/14/23 History pravastatin 20 mg tablet 20 mg PO HS 03/12/23 10/14/23 History trazodone 150 mg tablet 150 mg PO HS 03/12/23 10/14/23 History albuterol sulfate 2.5 mg/3 mL 2.5 mg inhalation Q4HP PRN 10/14/23 10/14/23 History (0.083 %) solution for nebulization Shortness Of Breath Or Wheezing famotidine 40 mg tablet 40 mg PO DAILY 10/14/23 10/14/23 History memantine 5 mg tablet 5 mg PO BID 10/14/23 10/14/23 History sacubitril 49 mg-valsartan 51 mg 1 tab PO BID 10/14/23 10/14/23 History tablet (Entresto) albuterol sulfate 90 mcg/actuation 2 puff inhalation QID PRN 10/15/23 Rx aerosol inhaler (Ventolin HFA) shortness of breath or wheezing #8.5 grams apixaban 5 mg (74 tabs) tablets in 5 mg PO BID #74 tabs 10/15/23 Rx a dose pack (Eliquis DVT-PE Treat 30D Start) doxycycline hyclate 100 mg capsule 100 mg PO BID #14 caps 10/15/23 Rx ipratropium 0.5 mg-albuterol 3 mg 3 ml inhalation TIDRT #30 mL 10/15/23 Rx (2.5 mg base)/3 mL nebulization soln levofloxacin 750 mg tablet 750 mg PO DAILY #7 tabs 10/15/23 Rx nebulizer accessories #1 ea 10/15/23 Rx oxycodone 5 mg tablet 5 mg PO Q8H PRN pain #10 tabs 10/15/23 Rx New Prescriptions to Start Prescriptions: albuterol sulfate [Ventolin HFA] Dash,[place] apixaban [Eliquis DVT-PE Treat 30D Start] Dash,Miguel doxycycline hyclate Dash,[place] ipratropium-albuterol Dash,Miguel levofloxacin Dash,Miguel nebulizer accessories Dash,Miguel oxycodone Dash,Miguel Allergies Allergy/AdvReac Type Severity Reaction Status Date / Time sulfamethoxazole AdvReac Mild Nausea Verified 10/14/23 07:34 [From Bactrim] trimethoprim [From Bactrim] AdvReac Mild Nausea Verified 10/14/23 07:34 Discharge Plan Disposition Patient Disposition: Home Health Service Condition: Fair Discharge Order Discharge Orders: Discharge Order (Routine); Ordered 10/15/23 Ordered By: Miguel Dash Follow up Plan Follow up with: Earl Dumont [Primary Care Provider] - 10/20/23 12:00 pm Rm Gonzalez MD [Staff Physician] - 10/27/23 9:00 am (New bilateral pulmonary embolus started on Eliquis. Needs thromboembolic workup. Thank you) Laxmi Slaughter MD [Physician] - 11/08/23 4:00 pm (Oxygen dependent chronic respiratory disease with new bilateral pulmonary embolus) Prescriptions/Medication Reconciliation: New Eliquis DVT-PE Treat 30D Start 5 mg (74 tabs) tablets,dose pack 5 mg PO BID Qty: 74 0RF Rx Instructions: Take Eliquis 30-day starter pack as directed oxycodone 5 mg tablet 5 mg PO Q8H PRN (Reason: pain) Qty: 10 0RF ipratropium-albuterol 0.5 mg-3 mg(2.5 mg base)/3 mL Solution For Nebulization 3 ml inhalation TIDRT Qty: 30 1RF albuterol sulfate [Ventolin HFA] 90 mcg/actuation HFA aerosol inhaler 2 puff inhalation QID PRN (Reason: shortness of breath or wheezing) Qty: 8.5 2RF (DME) nebulizer accessories Kit See Rx Instructions .Route Qty: 1 0RF Rx Instructions: As directed doxycycline hyclate 100 mg capsule 100 mg PO BID Qty: 14 0RF levofloxacin 750 mg tablet 750 mg PO DAILY Qty: 7 0RF Continued donepezil 10 mg tablet 10 mg PO DAILY Patient Comments: TAKE 1 TABLET BY MOUTH DAILY atenolol 25 mg tablet 25 mg PO DAILY Patient Comments: TAKE 1 TABLET BY MOUTH DAILY amlodipine 5 mg tablet 5 mg PO DAILY Patient Comments: TAKE 1 TABLET BY MOUTH DAILY trazodone 150 mg tablet 150 mg PO HS Patient Comments: TAKE 1 TABLET BY MOUTH EVERY NIGHT AT BEDTIME levothyroxine 125 mcg tablet 125 mcg PO DAILY Patient Comments: TAKE 1 TABLET BY MOUTH DAILY hydroxyzine HCl 25 mg tablet 12.5 - 25 mg PO Q6HP PRN (Reason: Anxiety) Patient Comments: TAKE 1/2 TO 1 TABLET BY MOUTH EVERY 8 HOURS NEEDED FOR ANXIETY pravastatin 20 mg tablet 20 mg PO HS Patient Comments: TAKE 1 TABLET BY MOUTH EVERY EVENING duloxetine 60 mg capsule,delayed release(DR/EC) 60 mg PO DAILY Patient Comments: TAKE 1 CAPSULE BY MOUTH DAILY Entresto 49-51 mg tablet 1 tab PO BID Patient Comments: TAKE 1 TABLET BY MOUTH TWICE DAILY albuterol sulfate 2.5 mg /3 mL (0.083 %) solution for nebulization 2.5 mg inhalation Q4HP PRN (Reason: Shortness Of Breath Or Wheezing) Patient Comments: INHALE CONTENTS OF 1 VIAL VIA NEBULIZER EVERY 4 HOURS NEEDED FOR WEEZING famotidine 40 mg tablet 40 mg PO DAILY Patient Comments: TAKE 1 TABLET BY MOUTH DAILY memantine 5 mg tablet 5 mg PO BID Patient Comments: TAKE 1 TABLET BY MOUTH TWICE DAILY Other Ambulatory Orders: Home Medical Equipment (Routine) Location: None Selected Ordered By: Miguel Dash Problem Reconciliation Problems Reviewed?: Yes Patient Discharge Instructions ACTIVITY: Continue current activity DIET: continue same diet Patient Instructions: DI for Dehydration -- Adult, DI for Cough -- Adult, DI for Altered Mental Status Print Language: [place]olan Providers Primary Care Provider: Earl Dumont Admit Provider: Miguel Dash Attending Provider: Miguel Dash
[2023-10-15] MEDS: AMLODIPINE 5 MG PO (08:50)
[2023-10-15] MEDS: LEVOTHYROXINE 125 MCG PO (08:51)
[2023-10-15] MEDS: APIXABAN 5MG TABLET 10 MG PO (08:51)
[2023-10-15] MEDS: ATENOLOL 25MG TABLET 25 MG PO (08:51)
[2023-10-15 08:52] LABS: Alanine Aminotransferase 24 U/L (12-78); Alkaline Phosphatase 83 U/L (38-126); Anion Gap 8.5 mEq/L (5-15); Aspartate Amino Transferase 30 U/L (14-36); Bilirubin,Total 0.4 mg/dl (0.2-1.3); Blood Urea Nitrogen 21 mg/dl (7-17); Calcium 8.4 mg/dl (8.4-10.2); Carbon Dioxide 27 mmol/L (22.0-30.0); Chloride 103 mmol/L (98-107); Creatinine Clearance Estimated 78 mL/min (50-200); Estimated Glomerular Filt Rate 60 ml/min (>60); GFR (African American) 73 ML/MIN (>60); Globulin 3.1 g/dL (1.3-3.2); Glucose 160 mg/dl (74-100); Potassium 4.5 mmoL/L (3.5-5.1); Sodium 134 mmol/L (136-145); Total Protein,Serum 6.1 g/dl (6.3-8.2)
[2023-10-15] MEDS: PAT OWN MED ***DULOXETINE 60 MG 1 EACH PO (08:52)
[2023-10-15] MEDS: SACUBITRIL PO (08:53)
[2023-10-15] MEDS: VALSARTAN PO (08:53)
[2023-10-15] MEDS: MEMANTINE 5 MG 1 EACH PO (08:53)
[2023-10-15] MEDS: PANTOPRAZOLE 40MG TABLET 40 MG PO (08:55)
[2023-10-15] MEDS: DOCUSATE SODIUM 100 MG CAPSULE PO (08:55)
[2023-10-15 10:03] LABS: Hypochromasia 2+; Lymphocytes % 9 % (10-50); Monocytes % 3 % (2-9); Neutrophils % 88 % (42-76); Platelet Estimate Normal; Total Cells Counted 100
[2023-10-15 12:00] VITALS: PULSE 50
[2023-10-15 13:15] VITALS: PULSE 87; PULSE 91; O2SAT 90
--- NOTE | 2023-10-18 16:30 | CARE MANAGER ---
Contacted patient related to hospital discharge. She states that she is tired but ok. She denies questions or concerns and is aware of follow up appointments. ISABEL Massey
== END 2023-10-15 13:42 | disposition home health service (06) ==
LOC: ER 05:41 → 2ND 06:36
PROVIDERS: Nurse Practitioner Family; Admitting Provider Internal Medicine; Emergency Provider Emergency Medicine; PCP Family Medicine; Visit Provider Internal Medicine
DX: I26.99 Other pulmonary embolism without acute cor pulmonale (principal); R41.82 Altered mental status, unspecified; R25.1 Tremor, unspecified; Z99.81 Dependence on supplemental oxygen; J44.9 Chronic obstructive pulmonary disease, unspecified; R26.2 Difficulty in walking, not elsewhere classified; E66.9 Obesity, unspecified; Z68.41 Body mass index [BMI] 40.0-44.9, adult; J96.21 Acute and chronic respiratory failure with hypoxia; R91.1 Solitary pulmonary nodule; I10 Essential (primary) hypertension; E03.9 Hypothyroidism, unspecified; M54.9 Dorsalgia, unspecified
CPT/HCPCS: 36415; 70450; 71045; 71275; 74177; 80053; 80307; 81001; 83735; 83880; 84484; 85007; 85025; 85378; 85730; 87040; 87636; 93005; 93306; 93970; 94640; 94761; 97163; 97166; 99285; G0378; J1644; J2270; J2405; J2919; J7120; J7620; Q9967

== ENCOUNTER 2023-10-26 14:50 | Outpatient (CLI) | payer MEDICARE, SELFPAY ==
[2023-10-26 15:34] LABS: Reticulocyte % (Auto) 1.4 % (0.9-3.2)
[2023-10-26 15:43] LABS: Lactate Dehydrogenase 155 U/L (313-618)
[2023-10-26 15:48] LABS: Iron 80 ug/dL (37-170)
[2023-10-26 15:57] LABS: Total Iron Binding Capacity 256 ug/dL (265-497)
[2023-10-26 16:25] LABS: Ferritin 25.9 ng/ml (11.1-264)
[2023-10-26 16:51] LABS: Vitamin B12 366 pg/mL (239-931)
[2023-10-26 16:55] LABS: Folate 7.36 ng/mL
[2023-11-02 17:11] LABS: Haptoglobin 157 mg/dL (42-346)
== END 2023-10-26 23:59 | disposition home or self-care (01) ==
PROVIDERS: PCP Family Medicine; Visit Provider Internal Medicine Medical Oncology
DX: D69.6 Thrombocytopenia, unspecified (principal); I26.99 Other pulmonary embolism without acute cor pulmonale
CPT/HCPCS: 36415; 82607; 82728; 82746; 83010; 83540; 83550; 83615; 85044; 86880

== ENCOUNTER 2024-02-12 18:05 | Inpatient (IN) | payer MEDICARE, SELFPAY ==
[2024-02-12] VITALS (10 sets, daily range): BP systolic 106–195; BP diastolic 41–91; PULSE 66–80; RESP 16–28; TEMP 36.6–37; O2SAT 78–96; BMI 57.2; BMI 42.3
--- NOTE | 2024-02-12 18:27 | [facility].EDCP ---
Discharge Plan Disposition Patient Disposition: Admitted Clinical Impressions Clinical Impression: Respiratory failure with hypoxia and hypercapnia Qualifiers: Chronicity: acute on chronic Qualified Code(s): J96.21 - Acute and chronic respiratory failure with hypoxia Discharge ED Provider: Prabhu Serna HPI General Chief Complaint: Shortness of Breath/Dyspnea Stated Complaint: Confused,difficulty breathing Time Seen by Provider: 02/12/24 18:22 Mode of Arrival: Wheelchair Source of Information: Patient and Relative Limitations: No Limitations Description of Symptoms (Recalled from ER Triage Doc. by RN): pt is SOA. confused. multiple falls. hurt r ankle History of Present Illness HPI narrative: Patient is a 78-year-old female past medical history of COPD, hypertension, PE, lung nodule presenting for multiple falls, confusion and shortness of air. Patient said over the last couple of days she has had increasingly worsening difficulty breathing and a cough. Family at bedside said that she has not had a fever but is also fallen about 2 days ago and hit her right ankle and foot. Patient is still been able to ambulate fairly well with her walker at baseline but due to increased confusion she was brought to the emergency department today. She has had similar issues in the past. At this time patient denies nausea, vomiting, chest pain, abdominal pain, dysuria Related Data Home Medications ?Medication ?Instructions ?Recorded ?Confirmed amlodipine 5 mg tablet 5 mg PO DAILY 03/12/23 02/12/24 atenolol 25 mg tablet 25 mg PO DAILY 03/12/23 02/12/24 donepezil 10 mg tablet 10 mg PO DAILY 03/12/23 02/12/24 duloxetine 60 mg capsule,delayed 60 mg PO DAILY 03/12/23 02/12/24 release hydroxyzine HCl 25 mg tablet 12.5 - 25 mg PO Q6HP PRN Anxiety 03/12/23 02/12/24 levothyroxine 125 mcg tablet 125 mcg PO DAILY 03/12/23 02/12/24 pravastatin 20 mg tablet 20 mg PO HS 03/12/23 02/12/24 trazodone 150 mg tablet 150 mg PO HS 03/12/23 02/12/24 albuterol sulfate 2.5 mg/3 mL 2.5 mg inhalation Q4HP PRN 10/14/23 02/12/24 (0.083 %) solution for nebulization Shortness Of Breath Or Wheezing famotidine 40 mg tablet 40 mg PO DAILY 10/14/23 02/12/24 memantine 5 mg tablet 5 mg PO BID 10/14/23 02/12/24 sacubitril 49 mg-valsartan 51 mg 1 tab PO BID 10/14/23 02/12/24 tablet (Entresto) alendronate 70 mg tablet 70 mg PO WEEKLY 02/12/24 02/12/24 buspirone 30 mg tablet 30 mg PO BID 02/12/24 02/12/24 docusate sodium 100 mg capsule 100 mg PO BID 02/12/24 02/12/24 guaifenesin 600 mg tablet, 600 mg PO BID 02/12/24 02/12/24 extended release 12 hr prednisone 20 mg tablet 20 mg PO DAILY 02/12/24 02/12/24 Previous Rx's ?Medication ?Instructions ?Recorded albuterol sulfate 90 mcg/actuation 2 puff inhalation QID PRN 10/15/23 aerosol inhaler (Ventolin HFA) shortness of breath or wheezing #8.5 grams doxycycline hyclate 100 mg capsule 100 mg PO BID #14 caps 10/15/23 ipratropium 0.5 mg-albuterol 3 mg 3 ml inhalation TIDRT #30 mL 10/15/23 (2.5 mg base)/3 mL nebulization soln nebulizer accessories #1 ea 10/15/23 apixaban 5 mg tablet (Eliquis) 5 mg PO BID #180 tabs 11/08/23 Allergies Allergy/AdvReac Type Severity Reaction Status Date / Time sulfamethoxazole (From AdvReac Mild Nausea Verified 11/08/23 15:49 Bactrim) trimethoprim (From Bactrim) AdvReac Mild Nausea Verified 11/08/23 15:49 PFSH PFS Disclaimer: The information contained in this section may have been updated after the patient was seen, as this information can be updated by other users. Medical History CAD (coronary artery disease) HTN (hypertension) Heart failure Chronic respiratory failure with hypoxia History of COPD Second hand smoke exposure Surgical History History of left knee replacement Family History Other No significant family history Social History Smoking Status: Never smoker alcohol intake: never current occupational status: retired Travel in the last 8 weeks: None Have you lived/traveled outside [place] in past 30 days?: No Contact w/someone who lives/traveled outside US past 30 days?: No Exposure to someone with infectious disease in past 14 days?: No Do you have a fever (greater than 100.4 F or 38 C)?: No Have you tested positive for COVID-19: No Exposed to someone with COVID-19 in past 14 days?: No Do you have a sore throat?: No Do you have a cough?: No Do you have any weakness?: No Are you experiencing any nausea/vomitting?: No Do you have any diarrhea?: No Are you experiencing any unusual bleeding?: No Do you have any muscle aches/pain?: No Do you have any abdominal pain?: No Are you experiencing loss of taste or smell?: No Other Medical History Have you received the Flu Vaccine for this season: No Have you received the Pneumonia Vaccine: Yes ROS Obtained: Yes All systems reviewed & no additional complaints except as documented Physical Exam General General appearance: alert and in distress Eye Eye exam: Present normal appearance Respiratory Respiratory exam: Present respiratory distress, wheezes and accessory muscle use Cardiovascular Cardiovascular exam: Present regular rate and normal rhythm Abdominal Exam Abdominal exam: Present soft; Absent distention, tenderness or guarding Extremities Exam Extremities exam: Present normal inspection, full ROM, normal capillary refill, edema (Bilateral) and other (Mild tenderness to palpation of medial foot without obvious deformity. Second right toe deformity, but full range of motion); Absent tenderness Neurological Exam Neurological exam: Present alert; Absent oriented X3 (Alert and oriented x 2) or motor sensory deficit HEART Score HEART Score HEART Score assessment performed?: Yes History (anamnesis): Slightly suspicious ECG: Non-specific disturbance Age: >65 years Risk factors: 3 or more risk factors Troponin: 1-3x normal limit HEART Score: 6 Critical Care Critical Care Time Critical Care Time: Yes Attestation: On 02/12/24, the high probability of a clinically significant, sudden or life threatening deterioration of the following system(s) required my full and direct attention, intervention and personal management. The time I documented below is in addition to time spent performing reported procedures but includes the following listed in this critical care notation. Total Time Total Critical Care Time: 35 Medical Decision Making [place] Inquiry Pt receiving controlled substance: No Vital Signs Vital Signs: 02/12/24 18:06 02/12/24 18:50 02/12/24 20:15 Temperature 98.6 F Temperature Source Oral Pulse Rate 80 77 Pulse Rate [Right] 78 Respiratory Rate 28 H Blood Pressure 123/71 195/70 H Blood Pressure [Right Arm] 152/41 H Blood Pressure Mean [Right Arm] 78 02 Sat by Pulse Oximetry 78 L 95 91 L Oxygen Delivery Method Nasal Cannula Room Air BiPAP Oxygen Flow Rate (LPM) 2.5 02/12/24 21:15 02/12/24 21:30 02/12/24 22:00 Temperature Temperature Source Pulse Rate 80 71 Pulse Rate [Right] Respiratory Rate 16 17 26 H Blood Pressure 147/68 H 164/62 H 106/70 L Blood Pressure [Right Arm] Blood Pressure Mean [Right Arm] 02 Sat by Pulse Oximetry 95 96 96 Oxygen Delivery Method BiPAP BiPAP BiPAP Oxygen Flow Rate (LPM) 02/12/24 22:25 Temperature 98.5 F Temperature Source Pulse Rate 78 Pulse Rate [Right] Respiratory Rate 20 Blood Pressure 156/87 H Blood Pressure [Right Arm] Blood Pressure Mean [Right Arm] 02 Sat by Pulse Oximetry Oxygen Delivery Method BiPAP Oxygen Flow Rate (LPM) Lab Data Labs: Lab Results 02/12/24 18:35: WBC 10.6, RBC 3.57 L, Hgb 10.6 L, Hct 36.4 L, MCV 102.0 H, MCH 29.7, MCHC 29.1 L, RDW 13.2, Plt Count 241, MPV 10.0, Neut % (Auto) 83.1 H, Lymph % (Auto) 9.6 L, [place] % (Auto) 2.4, Eos % (Auto) 0.0 L, Baso % (Auto) 0.9, Neut # (Auto) 8.8 H, Lymph # (Auto) 1.0, [place] # (Auto) 0.3, Eos # (Auto) 0.0, Baso # (Auto) 0.1, PT 12.3, INR 1.11 H, APTT 27.6, Sodium 141, Potassium 4.7, Chloride 93 L, Carbon Dioxide 42 H*, Anion Gap 10.7, BUN 25 H, Creatinine 0.80, Estimated Creat Clear 38, Estimated GFR 69, Est GFR ( Amer) 84, Glucose 160 H, Calcium 9.5, Magnesium 2.1, Total Bilirubin 0.3, AST 29, ALT 18, Alkaline Phosphatase 94, Troponin I 0.13 H, Total Protein 6.5, Albumin 3.2 L, Globulin 3.3 H, Albumin/Globulin Ratio 1.0 L, TSH 0.34 L, Free T4 1.73, Plasma/Serum Alcohol < 10, HIV Ag/Ab Combo Qual Negative 02/12/24 19:02: VBG pH 7.26 L, VBG pCO2 78.8 H, VBG pO2 73.1 H, VBG HCO3 34.9 H, VBG Total CO2 37.3 H, VBG O2 Saturation 94.1 H, VBG Base Excess 7.9 H, VBG Lactic Acid 0.9 02/12/24 21:45: Troponin I 0.13 H 02/12/24 18:35 02/12/24 18:35 Response Orders (Tests/Meds): ED MEDICATIONS Generic Name Dose Route Start Last Admin Trade Name Freq PRN Reason Stop Dose Admin Acetaminophen 650 mg 02/12/24 22:13 Acetaminophen 325mg Tab PO 03/13/24 22:12 Q4HP PRN Fever or Mild Pain (1-3) Hydrocodone Bitart/Acetaminophen 1 tab 02/12/24 22:13 Hydrocodone/Apap 5/325 Mg Tablet PO 03/13/24 22:12 Q4HP PRN Mild to Moderate Pain (1-6) Albuterol/Ipratropium 3 ml 02/13/24 00:00 02/12/24 23:50 Ipratropium/Albuterol 3 Ml Neb IH 03/14/24 00:00 3 ml Q6RT KEYSHA Administration Azithromycin 250 mg 02/13/24 09:00 Azithromycin 250mg Tablet PO 02/23/24 08:59 DAILY KEYSHA Guaifenesin 600 mg 02/12/24 10:30 02/12/24 22:45 Guaifenesin 600 Mg Tab.Er.12h PO 03/13/24 10:29 Not Given BID [facility] Ceftriaxone Sodium 2 gm/ 100 mls @ 200 mls/hr 02/12/24 21:15 02/12/24 22:17 Sodium Chloride IV 02/22/24 21:14 200 mls/hr Q24H KEYSHA Administration Azithromycin 500 mg/ Sodium 250 mls @ 250 mls/hr 02/12/24 21:15 02/12/24 22:47 Chloride IV 02/22/24 21:14 250 mls/hr Q24H KEYSHA Administration Ceftriaxone Sodium 1 gm/ 50 mls @ 100 mls/hr 02/13/24 09:00 Sodium Chloride IV 02/23/24 08:59 Q24H KEYSHA Ondansetron HCl 4 mg 02/12/24 22:13 Ondansetron 4mg/2ml Vial IV 03/13/24 22:12 Q8HP PRN Nausea Prednisone 40 mg 02/13/24 09:00 Prednisone 20mg Tab PO 03/14/24 08:59 DAILY KEYSHA Sodium Chloride 10 ml 02/12/24 20:07 02/12/24 20:08 Sodium Chloride 0.9% 10ml Syr (Rad Only) IV 03/13/24 20:06 10 ml NEEDED PRN Administration Maintain IV Site Sodium Chloride 3 ml 02/12/24 22:08 Sodium Chloride 3% 15ml [facility] 03/13/24 22:07 ONCE PRN INDUCE SPUTUM COLLECTION Discontinued Medications Generic Name Dose Route Start Last Admin Trade Name Freq PRN Reason Stop Dose Admin Albuterol/Ipratropium 9 ml 02/12/24 19:16 02/12/24 21:23 Ipratropium/Albuterol 3 Ml [facility] 02/12/24 19:17 9 ml ONCE ONE Administration Magnesium Sulfate 2 gm in 50 mls @ 50 mls/hr 02/12/24 19:14 02/12/24 20:41 Magnesium Sulfate 2gm/50ml Premix IV 02/12/24 20:13 50 mls/hr ONCE ONE Administration Iopamidol 70 ml 02/12/24 20:07 02/12/24 20:08 Iopamidol-370 (76%);100ml Bottle IV 02/12/24 20:08 70 ml ONCE ONE Administration Methylprednisolone Sodium Succinate 125 mg 02/12/24 19:14 02/12/24 20:43 Methylprednisolone Sod Succ 125mg Vial IV 02/12/24 19:15 125 mg ONCE ONE Administration Sodium Chloride 50 ml 02/12/24 20:07 02/12/24 20:08 0.9 % Sodium Chloride 50 Ml Vial IV 02/12/24 20:08 50 ml ONCE ONE Administration ORDERS Category Date Time Status CT angio chest PE protocol Stat Cat Scan 02/12/24 19:[address] head/brain wo con Stat Cat Scan 02/12/24 19:03 Completed Ankle XR - Right 2 Views [XR ankle RT 2V] Stat Exams 02/12/24 19:02 Completed Foot XR right 2 views [XR foot RT 2V] Stat Exams 02/12/24 19:02 Completed Pelvis XR 1-2 views [XR pelvis 1-2V] Stat Exams 02/12/24 19:02 Completed XR chest portable Stat Exams 02/12/24 19:02 Completed Activated Partial Thrombo Time Stat Lab 02/12/24 18:35 Completed Basic Metabolic Panel [facility] Lab 02/13/24 06:00 Ordered Basic Metabolic Panel [facility] Lab 02/14/24 06:00 Ordered Basic Metabolic Panel [facility] Lab 02/15/24 06:00 Ordered Basic Metabolic Panel [facility] Lab 02/16/24 06:00 Ordered Basic Metabolic Panel [facility] Lab 02/17/24 06:00 Ordered Basic Metabolic Panel [facility] Lab 02/18/24 06:00 Ordered Basic Metabolic Panel [facility] Lab 02/19/24 06:00 Ordered Basic Metabolic Panel [facility] Lab 02/20/24 06:00 Ordered Basic Metabolic Panel [facility] Lab 02/21/24 06:00 Ordered Basic Metabolic Panel [facility] Lab 02/22/24 06:00 Ordered Calcium, Ionized Stat Lab 02/12/24 18:35 Received Complete Blood Count Auto Diff [facility] Lab 02/13/24 06:00 Ordered Complete Blood Count Auto Diff [facility] Lab 02/14/24 06:00 Ordered Complete Blood Count Auto Diff [facility] Lab 02/15/24 06:00 Ordered Complete Blood Count Auto Diff [facility] Lab 02/16/24 06:00 Ordered Complete Blood Count Auto Diff [facility] Lab 02/17/24 06:00 Ordered Complete Blood Count Auto Diff [facility] Lab 02/18/24 06:00 Ordered Complete Blood Count Auto Diff [facility] Lab 02/19/24 06:00 Ordered Complete Blood Count Auto Diff [facility] Lab 02/20/24 06:00 Ordered Complete Blood Count Auto Diff [facility] Lab 02/21/24 06:00 Ordered Complete Blood Count Auto Diff [facility] Lab 02/22/24 06:00 Ordered Complete Blood Count Auto Diff Stat Lab 02/12/24 18:35 Completed Comprehensive Metabolic Panel Stat Lab 02/12/24 18:35 Completed Drug Screen,Urine Stat Lab 02/12/24 19:02 Ordered Ethyl Alcohol Stat Lab 02/12/24 18:35 Completed Folate Routine Lab 02/13/24 06:00 Ordered Free T4 (Free Thyroxine) Stat Lab 02/12/24 18:35 Completed HIV Combo Stat Lab 02/12/24 18:35 Completed Hep C Ab with Reflex to RNA Stat Lab 02/12/24 18:35 Received Magnesium Stat Lab 02/12/24 18:35 Completed Prothrombin Time INR Stat Lab 02/12/24 18:35 Completed Thyroid Stimulating Hormone Stat Lab 02/12/24 18:35 Completed Troponin I Q3H Lab 02/12/24 21:45 Completed Troponin I Q3H Lab 02/13/24 01:15 Ordered Troponin I Stat Lab 02/12/24 18:35 Completed Vitamin B12 Routine Lab 02/13/24 06:00 Ordered Sputum Culture & Gram Stain Routine Micro 02/12/24 22:08 Ordered Venous Blood Gas Stat RT 02/12/24 19:02 Completed ECG Request Stat Y 02/12/24 19:02 Ordered EKG Request [ECG Request] Stat Y 02/12/24 19:43 Ordered MDM Narrative Medical Decision Narrative: In summary, this 78-year-old female presents to the emergency department today with shortness of air. On initial evaluation patient is altered, on supplemental oxygen but otherwise stable. She is on 2 and half liters at baseline but is on significantly more. Is unclear if she has been falling due to her altered mental status over the altered mental status started after her falls. Differential diagnosis includes but is not limited to ACS, COPD exacerbation pulmonary embolism, pneumonia, electrolyte abnormality. Based on these concerns, I ordered labs, imaging. ECG personally interpreted demonstrates no ST elevations, T wave inversions in lateral leads, sinus rhythm. Patient received BiPAP, albuterol, steroids, magnesium, antibiotics for treatment. Labs personally reviewed demonstrate mild anemia, elevated INR, acidemia, elevated CO2, hypochloremia. XR personally interpreted demonstrates right-sided pneumonia. CT imaging personally interpreted demonstrate right-sided pneumonia without large pulmonary embolism, CT head showed no intracranial hemorrhage. I had an interactive discussion with hospital medicine service due to acute hypoxic respiratory failure requiring BiPAP. She was placed on BiPAP after her initial VBG showed respiratory acidosis which significantly improved her work of breathing and she was given antibiotics for a pneumonia. Additionally her x-ray of her foot showed possible dislocation, I discussed this with patient she said that her toe has looked like that for years and she has no additional pain in that area.. On reassessment respiratory rate and work of breathing has improved with BiPAP and nebulizing treatment.
--- NOTE | 2024-02-12 19:02 | XR_ITS ---
PROCEDURE INFORMATION: Exam: XR Pelvis Exam date and time: 02/12/2024 7:13 PM Age: 78 years old Clinical indication: Injury or trauma; Fall; Blunt trauma (contusions or hematomas); Bilateral; Pelvic region TECHNIQUE: Imaging protocol: Radiologic exam of the pelvis. Views: 1 or 2 view. COMPARISON: 1. CT ABDOMEN PELVIS W CON 10/14/2023 5:02 AM 2. CR XR HIP LT 2-3V W/PELVIS 03/12/2023 7:06 AM FINDINGS: Bones/joints: Unremarkable. No acute fracture. Moderate degenerative changes of the right hip redemonstrated. Soft tissues: Unremarkable. IMPRESSION: No acute findings.
--- NOTE | 2024-02-12 19:02 | XR_ITS ---
PROCEDURE INFORMATION: Exam: XR Right Foot Exam date and time: 02/12/2024 7:13 PM Age: 78 years old Clinical indication: Injury or trauma; Fall; Blunt trauma; Foot; Right TECHNIQUE: Imaging protocol: Radiologic exam of the right foot. Views: 1 or 2 views. COMPARISON: CR XR FOOT RT 2V 02/12/2024 7:13 PM FINDINGS: Bones/joints: No definite acute fracture identified. Possible subluxation/dislocation of the 2nd MTP joint region incompletely assessed on the available views is only seen on the AP view and obscured on the lateral view due to overlapping structures. Soft tissues: Normal. IMPRESSION: Questionable subluxation/dislocation of the 2nd MTP joint incompletely assessed on the available views. This may be a chronic finding but if symptoms in this region acute injury cannot be excluded. If indicated consider further assessment with a dedicated x-ray series with attention to the right 2nd toe.
--- NOTE | 2024-02-12 19:02 | CT_ITS ---
PROCEDURE INFORMATION: Exam: CTA Chest With Contrast Exam date and time: 02/12/2024 8:06 PM Age: 78 years old Clinical indication: Shortness of breath; Additional info: Shortness of air, altered mental status. Trauma. TECHNIQUE: Imaging protocol: Computed tomographic angiography of the chest with contrast. Exam focused on the arteries. 3D rendering (Not supervised by radiologist): MIP and/or 3D reconstructed images were created by the technologist. Radiation optimization: All CT scans at this facility use at least one of these dose optimization techniques: automated exposure control; mA and/or kV adjustment per patient size (includes targeted exams where dose is matched to clinical indication); or iterative reconstruction. Contrast material: ISO 370; Contrast volume: 70 ml; Contrast route: INTRAVENOUS (IV); COMPARISON: CT ANGIO CHEST PE PROTOCOL 10/14/2023 6:14 AM FINDINGS: Pulmonary arteries: Enlarged appearing main pulmonary artery and right and left main pulmonary arteries suggesting pulmonary artery hypertension again noted. No evident PE Aorta: Unremarkable. No aortic aneurysm. No aortic dissection. Lungs: Interval development of a moderate-sized area of airspace opacification suggesting consolidation in the posterior aspect of the right upper lobe adjacent to the major fissure. Additional subpleural predominantly bandlike opacities noted in the posterior aspect of the right lower lobe and inferior lingula more likely subsegmental atelectasis. Lung bellamy otherwise clear. Pleural spaces: Unremarkable. No pneumothorax. No pleural effusion. Heart: Cardiomegaly redemonstrated. Coronary arteries: Moderate coronary artery calcifications suggesting coronary artery disease. Lymph nodes: Unremarkable. No enlarged lymph nodes. Bones/joints: Unremarkable. No acute fracture. Soft tissues: Unremarkable. IMPRESSION: 1. Interval development of consolidation in the posterior right upper lobe worrisome for developing pneumonia. Additional bilateral areas of atelectasis also noted. Advise follow-up CT in 6-12 weeks to ensure resolution of the right upper lobe findings. 2. No evident PE. 3. Prominent central pulmonary artery suggesting pulmonary artery hypertension. 4. Cardiomegaly. 5. Moderate coronary artery calcifications suggesting coronary artery disease.
--- NOTE | 2024-02-12 19:02 | XR_ITS ---
PROCEDURE INFORMATION: Exam: XR Chest Exam date and time: 02/12/2024 7:13 PM Age: 78 years old Clinical indication: Other: AMS; Additional info: Altered mental status TECHNIQUE: Imaging protocol: Radiologic exam of the chest. Views: 1 view. COMPARISON: 1. CT ANGIO CHEST PE PROTOCOL 10/14/2023 6:14 AM and 02/12/2024. 2. CR XR CHEST PORTABLE 10/14/2023 4:31 AM FINDINGS: Lungs: Opacity in the right mid lung that corresponds to the consolidation noted in the posterior right upper lobe on the subsequent CT chest. A moderate size hiatal hernia noted in the left lung base similar to previous. Mild bibasilar atelectasis. Lungs otherwise clear. Pleural spaces: Unremarkable. No pleural effusion. No pneumothorax. Heart/Mediastinum: Cardiomegaly similar to previous. Bones/joints: Unremarkable. IMPRESSION: 1. Right mid lung opacity compatible with the possible pneumonia noted on CT. Follow-up advised to ensure resolution. 2. Bibasilar atelectasis. 3. Cardiomegaly and hiatal hernia.
--- NOTE | 2024-02-12 19:02 | XR_ITS ---
PROCEDURE INFORMATION: Exam: XR Right Ankle Exam date and time: 02/12/2024 7:13 PM Age: 78 years old Clinical indication: Pain; Ankle; Right; Additional info: Right ankle pain TECHNIQUE: Imaging protocol: Radiologic exam of the right ankle. Views: 1 or 2 views. COMPARISON: CR XR FOOT RT 2V 02/12/2024 7:13 PM FINDINGS: Bones/joints: Normal. No acute fracture identified. Soft tissues: Normal. IMPRESSION: No acute findings.
--- NOTE | 2024-02-12 19:03 | CT_ITS ---
PROCEDURE INFORMATION: Exam: CT Head Without Contrast Exam date and time: 02/12/2024 8:04 PM Age: 78 years old Clinical indication: Altered mental status/memory loss TECHNIQUE: Imaging protocol: Computed tomography of the head without contrast. Radiation optimization: All CT scans at this facility use at least one of these dose optimization techniques: automated exposure control; mA and/or kV adjustment per patient size (includes targeted exams where dose is matched to clinical indication); or iterative reconstruction. COMPARISON: CT HEAD/BRAIN WO CON 10/14/2023 6:09 AM FINDINGS: Brain: Age-related involutional changes and chronic microvascular ischemic disease. No evidence for acute transcortical infarct. No mass effect or midline shift. No extra-axial collection. No acute intracranial hemorrhage. Basal cisterns are patent. Cerebral ventricles: No ventriculomegaly. Paranasal sinuses: Visualized sinuses are unremarkable. No fluid levels. Mastoid air cells: Visualized mastoid air cells are well aerated. Bones: Unremarkable. No acute fracture. Soft tissues: Unremarkable. IMPRESSION: No evidence for acute transcortical infarct, acute intracranial hemorrhage, or mass effect.
[2024-02-12 19:10] LABS: Basophils # 0.1 K/mm3 (0-0.2); Basophils % 0.9 % (0.1-2.0); Hematocrit 36.4 % (37.0-47.0); Hemoglobin 10.6 g/dL (12.2-16.2); Lymphocytes % 9.6 % (10-50); Mean Corpuscular HGB Conc 29.1 g/dL (31.8-35.4); Mean Corpuscular Hemoglobin 29.7 pg (27.0-31.2); Monocytes # 0.3 K/mm3 (0.1-1.0); Monocytes % 2.4 % (1.7-9.3); Neutrophils # 8.8 K/mm3 (1.8-7.8); Neutrophils % 83.1 % (37.0-80.0); Platelet Count 241 K/mm3 (142-424); Red Blood Count 3.57 M/mm3 (4.20-5.40); Red Cell Distribution Width 13.2 % (11.5-17.5); White Blood Count 10.6 K/mm3 (4.8-10.8)
[2024-02-12 19:15] LABS: Albumin Level 3.2 g/dl (3.5-5.0); Chloride 93 mmol/L (98-107); Potassium 4.7 mmoL/L (3.5-5.1); Sodium 141 mmol/L (136-145)
[2024-02-12 19:17] LABS: Alanine Aminotransferase 18 U/L (12-78); Aspartate Amino Transferase 29 U/L (14-36); Blood Urea Nitrogen 25 mg/dl (7-17); Creatinine Clearance Estimated 38 mL/min (50-200); Estimated Glomerular Filt Rate 69 ml/min (>60); GFR (African American) 84 ML/MIN (>60)
[2024-02-12 19:18] LABS: Activated Partial Thrombo Time 27.6 seconds (22.8-30.6); Alkaline Phosphatase 94 U/L (38-126); Bilirubin,Total 0.3 mg/dl (0.2-1.3); Calcium 9.5 mg/dl (8.4-10.2); Ethyl Alcohol < 10 mg/dl (0-10); Globulin 3.3 g/dL (1.3-3.2); Glucose 160 mg/dl (74-100); INR 1.11 (0.9-1.1); Magnesium 2.1 mg/dl (1.6-2.3); Prothrombin Time 12.3 seconds (10.1-12.5); Total Protein,Serum 6.5 g/dl (6.3-8.2)
[2024-02-12 19:29] LABS: Troponin I 0.13 ng/ml (0.00-0.034)
[2024-02-12 19:41] LABS: Anion Gap 10.7 mEq/L (5-15); Carbon Dioxide 42 mmol/L (22.0-30.0)
[2024-02-12 19:45] LABS: Free T4 (Free Thyroxine) 1.73 ng/dl (0.78-2.19)
--- NOTE | 2024-02-12 19:45 | ECG_ITS ---
APPROVED REPORT Exam: Resting ECG HR:76 bpm ECG Measurements Heart Rate 76 AXES QRSd 95 QRS 60 QT 300 T -21 QTc 331 Conclusion ATRIAL FIBRILLATION POSSIBLE RIGHT VENTRICULAR CONDUCTION DELAY [RSR (QR) IN V1/V2] NONSPECIFIC T-WAVE ABNORMALITY ABNORMAL ECG UNCONFIRMED REPORT Electronically signed by : JESSY REED, 02/13/2024 06:49:11
[2024-02-12 19:48] LABS: Thyroid Stimulating Hormone 0.34 uIU/mL (0.465-4.68)
[2024-02-12 20:08] LABS: HIV Combo NEGATIVE (Negative)
[2024-02-12] MEDS: IOPAMIDOL-370 (76%);100ML BOTTLE 70 ML IV (20:08)
[2024-02-12] MEDS: 0.9 % SODIUM CHLORIDE 50 ML VIAL IV (20:08)
[2024-02-12] MEDS: SODIUM CHLORIDE 0.9% 10ML SYR (RAD ONLY) 10 ML IV (20:08)
[2024-02-12] MEDS: MAGNESIUM SULFATE IN WATER 2 GM/50 ML PIGGYBACK IV (20:41)
[2024-02-12] MEDS: METHYLPREDNISOLONE SOD SUCC 125MG VIAL 125 MG IV (20:43)
[2024-02-12 20:44] LABS: Lactate Venous 0.9 mmol/L (0.4-2.0); VBG Base Excess 7.9 mmol/L (-2.4-2.3); VBG HCO3 34.9 mmol/L (23-30); VBG Oxygen Saturation 94.1 % (50-70); VBG PH 7.26 mmol/L (7.31-7.41); VBG PO2 73.1 mmol/L (28-40); VBG Total CO2 37.3 mmol/L (23-27)
[2024-02-12 20:45] LABS: VBG PCO2 78.8 mmol/L (35-51)
[2024-02-12] MEDS: IPRATROPIUM/ALBUTEROL 3 ML NEB 9 ML IH (21:23)
[2024-02-12] MEDS: CEFTRIAXONE SODIUM 2 GM in 0.9 % SODIUM CHLORIDE 100 ML IV (22:17)
--- NOTE | 2024-02-12 22:19 | EXP.HP ---
History of Present Illness *Admission Date: 02/12/24 *Reason for visit:: sob *History of present illness: This is a 78-year-old female who has a past medical history significant for home O2 dependency, COPD, hypertension, pulmonary embolism, lung nodule, obesity, tremors, and multiple falls who presents with a chief complaint of dyspnea, productive cough, falls, confusion, and shortness of breath. Due to patient's symptoms, she presented to the emergency room for evaluation. While in emergency room, patient did have an elevated pCO2 and CTA of the chest revealed consolidation in the posterior right upper lobe, bilateral areas of atelectasis, no pulmonary embolism, prominent central pulmonary artery suggesting pulmonary artery hypertension, cardiomegaly, and moderate coronary artery calcifications. Patient is requiring the BiPAP, so she has been admitted for further management. During my evaluation of the patient, patient was alert and oriented to self and situation but not to place. She states that she has been having shortness of breath over the past 2 days with a productive cough. Patient did produce some sputum while I was in the room and it was tenacious and green. 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 Pelvis plain films were without any acute findings. CT scan of the head was also without any acute findings. Patient is currently denying any chest pain, lightheadedness, dizziness, headache, fever, chills, rigors, nausea, vomiting, or diarrhea. Additional pertinent values obtained include a red blood cell count of 3.57, hemoglobin of 10.6, hematocrit 36.4, neutrophils 83.1%, INR of 1.11, pH is 7.26, pCO2 of 78.8, pO2 of 73.1, pCO2 of 34.9 chloride of 93, BUN of 25, blood glucose of 160, troponin of 0.13, and albumin of 3.2. [facility] Disclaimer: The information contained in this section may have been updated after the patient was seen, as this information can be updated by other users. Medical History Chronic respiratory failure with hypoxia History of COPD Second hand smoke exposure Surgical History History of left knee replacement Family History Other No significant family history Social History Smoking Status: Never smoker alcohol intake: never current occupational status: retired Travel in the last 8 weeks: None Have you lived/traveled outside [place] in past 30 days?: No Contact w/someone who lives/traveled outside US past 30 days?: No Exposure to someone with infectious disease in past 14 days?: No Do you have a fever (greater than 100.4 F or 38 C)?: No Have you tested positive for COVID-19: No Exposed to someone with COVID-19 in past 14 days?: No Do you have a sore throat?: No Do you have a cough?: No Do you have any weakness?: No Do you have any diarrhea?: No Are you experiencing any unusual bleeding?: No Do you have any muscle aches/pain?: No Do you have any abdominal pain?: No Are you experiencing loss of taste or smell?: No Other Medical History Have you received the Flu Vaccine for this season: No Have you received the Pneumonia Vaccine: Yes Review of Systems Review of Systems Review of systems:: pertinent systems reviewed and negative unless documented below Constitutional Constitutional: Reports system reviewed and no additional complaints, except as documented Eyes Eyes: Reports system reviewed and no additional complaints, except as documented ENT Ears, Nose, Mouth, and Throat: Reports system reviewed and no additional complaints, except as documented *Cardiovascular Cardiovascular: Reports system reviewed and no additional complaints, except as documented and Reports dyspnea *Respiratory Respiratory: Reports cough and Reports dyspnea *Gastrointestinal Gastrointestinal: Reports system reviewed and no additional complaints, except as documented *Genitourinary Genitourinary: Reports system reviewed and no additional complaints, except as documented *Musculoskeletal Comments: Falls Integumentary/Breasts Skin/Breast: Reports system reviewed and no additional complaints, except as documented *Neurologic Neurologic: Reports confusion Psychiatric Psychiatric: Reports system reviewed and no additional complaints, except as documented and Reports confusion Endocrine Endocrine: Reports system reviewed and no additional complaints, except as documented Hematologic/Lymphatic Hematologic/Lymphatic: Reports system reviewed and no additional complaints, except as documented Allergic/Immunologic Allergic/Immunologic: Reports system reviewed and no additional complaints, except as documented Meds Home Medications and Allergies Home Medications ?Medication ?Instructions ?Recorded ?Confirmed ?Type amlodipine 5 mg tablet 5 mg PO DAILY 03/12/23 11/08/23 History atenolol 25 mg tablet 25 mg PO DAILY 03/12/23 11/08/23 History donepezil 10 mg tablet 10 mg PO DAILY 03/12/23 11/08/23 History duloxetine 60 mg capsule,delayed 60 mg PO DAILY 03/12/23 11/08/23 History release hydroxyzine HCl 25 mg tablet 12.5 - 25 mg PO Q6HP PRN Anxiety 03/12/23 11/08/23 History levothyroxine 125 mcg tablet 125 mcg PO DAILY 03/12/23 11/08/23 History pravastatin 20 mg tablet 20 mg PO HS 03/12/23 11/08/23 History trazodone 150 mg tablet 150 mg PO HS 03/12/23 11/08/23 History albuterol sulfate 2.5 mg/3 mL 2.5 mg inhalation Q4HP PRN 10/14/23 11/08/23 History (0.083 %) solution for nebulization Shortness Of Breath Or Wheezing famotidine 40 mg tablet 40 mg PO DAILY 10/14/23 11/08/23 History memantine 5 mg tablet 5 mg PO BID 10/14/23 11/08/23 History sacubitril 49 mg-valsartan 51 mg 1 tab PO BID 10/14/23 11/08/23 History tablet (Entresto) albuterol sulfate 90 mcg/actuation 2 puff inhalation QID PRN 10/15/23 11/08/23 Rx aerosol inhaler (Ventolin HFA) shortness of breath or wheezing #8.5 grams apixaban 5 mg (74 tabs) tablets in 5 mg PO BID #74 tabs 10/15/23 11/08/23 Rx a dose pack (Eliquis DVT-PE Treat 30D Start) doxycycline hyclate 100 mg capsule 100 mg PO BID #14 caps 10/15/23 11/08/23 Rx ipratropium 0.5 mg-albuterol 3 mg 3 ml inhalation TIDRT #30 mL 10/15/23 11/08/23 Rx (2.5 mg base)/3 mL nebulization soln levofloxacin 750 mg tablet 750 mg PO DAILY #7 tabs 10/15/23 11/08/23 Rx nebulizer accessories #1 ea 10/15/23 11/08/23 Rx oxycodone 5 mg tablet 5 mg PO Q8H PRN pain #10 tabs 10/15/23 11/08/23 Rx apixaban 5 mg tablet (Eliquis) 5 mg PO BID #180 tabs 11/08/23 11/08/23 Rx New Prescriptions to Start Prescriptions: Allergies Allergy/AdvReac Type Severity Reaction Status Date / Time sulfamethoxazole (From AdvReac Mild Nausea Verified 11/08/23 15:49 Bactrim) trimethoprim (From Bactrim) AdvReac Mild Nausea Verified 11/08/23 15:49 Exam Data for Last 24 hours Vital signs and Labs for Last 24 Hours: Temp Pulse Resp BP Pulse Ox O2 Del Method O2 Flow Rate 98.6 F 71 26 H 106/70 L 96 BiPAP 2.5 02/12/24 18:06 02/12/24 21:30 02/12/24 22:00 02/12/24 22:00 02/12/24 22:00 02/12/24 22:00 02/12/24 18:06 Laboratory Results - last 24 hr 02/12/24 18:35: WBC 10.6, RBC 3.57 L, Hgb 10.6 L, Hct 36.4 L, MCV 102.0 H, MCH 29.7, MCHC 29.1 L, RDW 13.2, Plt Count 241, MPV 10.0, Neut % (Auto) 83.1 H, Lymph % (Auto) 9.6 L, [place] % (Auto) 2.4, Eos % (Auto) 0.0 L, Baso % (Auto) 0.9, Neut # (Auto) 8.8 H, Lymph # (Auto) 1.0, [place] # (Auto) 0.3, Eos # (Auto) 0.0, Baso # (Auto) 0.1, PT 12.3, INR 1.11 H, APTT 27.6, Sodium 141, Potassium 4.7, Chloride 93 L, Carbon Dioxide 42 H*, Anion Gap 10.7, BUN 25 H, Creatinine 0.80, Estimated Creat Clear 38, Estimated GFR 69, Est GFR ( Amer) 84, Glucose 160 H, Calcium 9.5, Magnesium 2.1, Total Bilirubin 0.3, AST 29, ALT 18, Alkaline Phosphatase 94, Troponin I 0.13 H, Total Protein 6.5, Albumin 3.2 L, Globulin 3.3 H, Albumin/Globulin Ratio 1.0 L, TSH 0.34 L, Free T4 1.73, Plasma/Serum Alcohol < 10, HIV Ag/Ab Combo Qual Negative 02/12/24 19:02: VBG pH 7.26 L, VBG pCO2 78.8 H, VBG pO2 73.1 H, VBG HCO3 34.9 H, VBG Total CO2 37.3 H, VBG O2 Saturation 94.1 H, VBG Base Excess 7.9 H, VBG Lactic Acid 0.9 I & O for Last 24 hours: Intake & Output 02/09/24 02/10/24 02/11/24 02/12/24 23:59 23:59 23:59 23:59 Weight 146.51 kg Constitutional Constitutional: no acute distress, obese and cooperative *Routine HEENT Exam Head: Present normocephalic Eye: Present EOMI ENT: Present mucous membranes moist *Routine Neck Exam Neck: Present supple, full ROM and trachea midline *Routine Respiratory Exam Respiratory: Present decreased breath sounds, rhonchi and diminished air movement *Routine Cardiovascular Exam Cardiovascular: Present RRR, Normal S1 and Normal S2 *Routine Abdominal Exam Abdominal: Present soft, normoactive bowel sounds and obese *Routine Rectal Exam Rectal:: deferred *Routine Genitalia Exam Genitalia:: deferred *Routine Extremities Exam Extremities: Present full ROM, pulses intact and normal capillary refill Routine Back/Spine/Pelvis Exam Back/Spine: Present full ROM *Routine Skin Exam Skin: Present intact, dry and warm *Routine Neurological Exam Neurological: Present alert, altered mental status, moving all extremities and normal speech Comments: Oriented to self and situation Routine Psychiatric Exam Psychiatric: Present normal affect and cooperative H&P: Result Impressions This is a 78-year-old female who is presenting with 2-day history of shortness of breath and dyspnea. Has productive cough with tenacious green sputum. Imaging is consistent with right upper lobe and right middle lobe pneumonia with underlying COPD. Patient is a retainer of CO2 and has a noted acute on chronic hypoxic hypercapnic respiratory failure. She also has been having multiple falls and with a known injury to the right lower extremity. She is having some confusion most likely due to metabolic encephalopathy Assessment and Plan *Assessment and plan (1) Pneumonia: Start date: 02/12/24 Start time: 22:32 Status: Acute Qualifiers: Pneumonia type: due to unspecified organism Laterality: right Lung location: unspecified part of lung Qualified Code(s): J18.9 - Pneumonia, unspecified organism Category: Medical Code(s): J18.9 - Pneumonia, unspecified organism Plan: -1 g Rocephin IV daily -250 mg of azithromycin p.o. daily (patient received 500 mg of azithromycin in the emergency room) -Obtain sputum culture -600 mg of Mucinex p.o. twice daily -DuoNebs every 6 hours (2) Respiratory failure with hypoxia and hypercapnia: Start date: 02/12/24 Start time: 22:34 Status: Acute Qualifiers: Chronicity: acute on chronic Qualified Code(s): J96.21 - Acute and chronic respiratory failure with hypoxia; J96.22 - Acute and chronic respiratory failure with hypercapnia Category: Medical Code(s): J96.91 - Respiratory failure, unspecified with hypoxia; J96.92 - Respiratory failure, unspecified with hypercapnia Plan: -BiPAP with an inspiratory pressure of 6 and expiratory pressure of 7 with a rate of 18 -DuoNebs every 6 hours -40 mg of prednisone p.o. daily -Supplemental oxygen to maintain oxygen saturation greater 89 to 92% while off BiPAP -Repeat ABG in 2 hours (at midnight) - (3) Metabolic encephalopathy: Start date: 02/12/24 Start time: 22:38 Status: Acute Category: Medical Code(s): G93.41 - Metabolic encephalopathy Plan: -Most likely in the setting of acute illness -CT scan of the head was negative for any acute intracranial process -If patient does not improve after 24 to 48 hours, will consider MRI of the brain (4) Coagulopathy: Start date: 02/12/24 Start time: 22:38 Status: Acute Category: Medical Code(s): D68.9 - Coagulation defect, unspecified Plan: -May be due to apixaban -Will continue apixaban for DVT prophylaxis (5) Macrocytosis: Start date: 02/12/24 Start time: 22:39 Status: Acute Category: Medical Code(s): D75.89 - Other specified diseases of blood and blood-forming organs Plan: -May be due to vitamin B12/folate deficiency -Obtain vitamin B12/folate (6) Hyperglycemia: Start date: 02/12/24 Start time: 22:39 Status: Acute Category: Medical Code(s): R73.9 - Hyperglycemia, unspecified Plan: -Will monitor for now (7) Elevated troponin: Start date: 02/12/24 Start time: 22:39 Status: Acute Category: Medical Code(s): R79.89 - Other specified abnormal findings of blood chemistry Plan: -Most likely due to demand ischemia from pulmonary injury -Will monitor -Low suspicion for acute coronary syndrome Plan Admit patient to the stepdown unit in a inpatient status; patient will require at least 2 midnight stays Full code Up to chair twice daily SCDs bilateral lower extremity Physical therapy Vital signs every 4 hours Cardiac diet CBC/BMP daily 5 mg [place] p.o. every 4 hours as needed moderate pain 4 mg Zofran IV push to 8 hours. Nausea ROM I will discuss this case with attending physician and I look forward to more input
--- NOTE | 2024-02-12 22:20 | PC.NURSE ---
pt arrived to floor via stretcher from ED at 2218.
[2024-02-12] MEDS: guaiFENesin 600 MG TAB.ER.12H PO (22:44)
[2024-02-12] MEDS: AZITHROMYCIN 500 MG in 0.9 % SODIUM CHLORIDE 250 ML 250 MG IV (22:47)
[2024-02-12 23:16] LABS: Troponin I 0.13 ng/ml (0.00-0.034)
[2024-02-12] MEDS: IPRATROPIUM/ALBUTEROL 3 ML NEB IH (23:50)
[2024-02-13] VITALS (18 sets, daily range): BP systolic 108–186; BP diastolic 49–99; PULSE 56–81; RESP 14–36; TEMP 36.3–37.1; O2SAT 93–100; BMI 42.3
[2024-02-13] MEDS: LORazepam 2MG/ML VIAL 0.5 MG IV (01:10)
[2024-02-13 01:54] LABS: ABG Base Excess 17.2 mmol/L (-2.4-2.3); ABG HCO3 43.4 mmhg (22.0-26.0); ABG Oxygen Saturation 97 % (90-100); ABG PH 7.32 mmol/L (7.35-7.45); ABG PO2 83.6 mmhg (80-100)
[2024-02-13 01:56] LABS: Troponin I 0.12 ng/ml (0.00-0.034)
[2024-02-13 01:57] LABS: ABG PCO2 86.5 mmhg (35.0-45.0); Allen's Test y; Oxygen 40 %; Source rr; Vent Rate 20
[2024-02-13] MEDS: QUETIAPINE 25MG TABLET 25 MG PO (02:49)
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
[2024-02-13] MEDS: IPRATROPIUM/ALBUTEROL 3 ML NEB IH ×4 (06:36→22:47)
[2024-02-13 07:19] LABS: ABG Base Excess 18.2 mmol/L (-2.4-2.3); ABG HCO3 43.3 mmhg (22.0-26.0); ABG Oxygen Saturation 89 % (90-100); ABG PH 7.39 mmol/L (7.35-7.45); ABG PO2 53.3 mmhg (80-100); ABG TCO2 45.5 mmhg (23-27)
[2024-02-13 07:23] LABS: Allen's Test Patient Unable; Oxygen 30% Bipap 18/10 %; Source Left Radial; Vent Rate 20
[2024-02-13 07:24] LABS: ABG PCO2 73.6 mmhg (35.0-45.0)
[2024-02-13 07:30] LABS: Basophils % 0.5 % (0.1-2.0); Hematocrit 32.6 % (37.0-47.0); Hemoglobin 9.6 g/dL (12.2-16.2); Lymphocytes # 1.1 K/mm3 (0.7-4.5); Lymphocytes % 13.1 % (10-50); Mean Corpuscular HGB Conc 29.4 g/dL (31.8-35.4); Mean Corpuscular Hemoglobin 29.8 pg (27.0-31.2); Mean Corpuscular Volume 101.2 fl (81-99); Monocytes # 0.3 K/mm3 (0.1-1.0); Monocytes % 4.1 % (1.7-9.3); Neutrophils # 6.4 K/mm3 (1.8-7.8); Neutrophils % 78.5 % (37.0-80.0); Platelet Count 198 K/mm3 (142-424); Red Blood Count 3.22 M/mm3 (4.20-5.40); Red Cell Distribution Width 13.6 % (11.5-17.5); White Blood Count 8.1 K/mm3 (4.8-10.8)
[2024-02-13 08:08] LABS: Barbiturates Screen,Urine Negative ng/ml (<200)
[2024-02-13 08:09] LABS: Benzodiazepines Screen,Urine Negative ng/ml (<200)
[2024-02-13 08:10] LABS: Amphetamine/Metha Screen,Urine Negative ng/ml (<1000); Cannabinoid Screen,Urine Negative ng/ml (<50)
[2024-02-13 08:11] LABS: Cocaine Screen,Urine Negative ng/ml (<300); Methadone Screen,Urine Negative ng/ml (<300)
[2024-02-13 08:12] LABS: Opiate Screen,Urine Negative ng/ml (<300)
[2024-02-13 08:13] LABS: Phencyclidine Screen,Urine Negative ng/ml (<25)
[2024-02-13 08:22] LABS: Blood Urea Nitrogen 26 mg/dl (7-17); Calcium 8.7 mg/dl (8.4-10.2); Chloride 96 mmol/L (98-107); Creatinine Clearance Estimated 36 mL/min (50-200); Estimated Glomerular Filt Rate 81 ml/min (>60); GFR (African American) 98 ML/MIN (>60); Glucose 149 mg/dl (74-100); Potassium 4.9 mmoL/L (3.5-5.1); Sodium 139 mmol/L (136-145)
[2024-02-13 08:29] LABS: Anion Gap 8.9 mEq/L (5-15); Carbon Dioxide 39 mmol/L (22.0-30.0)
[2024-02-13] MEDS: guaiFENesin 600 MG TAB.ER.12H PO ×2 (08:43→20:39)
[2024-02-13] MEDS: predniSONE 20MG TAB 40 MG PO (08:43)
[2024-02-13 09:29] LABS: Vitamin B12 446 pg/mL (239-931)
[2024-02-13 09:37] LABS: Folate 7.22 ng/mL
--- NOTE | 2024-02-13 09:38 | HMH.PHAINT1 ---
Pharmacy Intervention Comments: MEDICATION RECONCILIATION COMPLETE USING LIST FROM CARDIOLOGY AND HEME/ONC OFFICE VISITS AND EXTERNAL PHARMACY FILL HISTORY.
[2024-02-13 10:08] LABS: Coronavirus 19, PCR Not Detected (NotDetected); Human Rhinovirus Not Detected (NotDetected); Influenza A, PCR Not Detected (NotDetected); Influenza B, PCR Not Detected (NotDetected); Respiratory Syncytial Virus Not Detected (NotDetected)
[2024-02-13] MEDS: OLANZapine 10 MG VIAL 2.5 MG IM (10:16)
[2024-02-13] MEDS: OLANZapine 10 MG VIAL 5 MG IM (10:18)
[2024-02-13] MEDS: LORazepam 2MG/ML VIAL 1 MG IV (10:40)
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
[2024-02-13] MEDS: BUDESONIDE 0.5MG/2ML NEB 0.5 MG IH ×2 (11:49→18:07)
[2024-02-13 15:28] LABS: Lactate Venous 1.1 mmol/L (0.4-2.0); VBG Base Excess 15.2 mmol/L (-2.4-2.3); VBG Oxygen Saturation 73.9 % (50-70); VBG PO2 38.1 mmol/L (28-40); VBG Total CO2 42.1 mmol/L (23-27)
[2024-02-13 15:37] LABS: VBG PCO2 66.7 mmol/L (35-51)
--- NOTE | 2024-02-13 17:18 | EXP.PN ---
Subjective *Date: 02/13/24 *Time: 17:18 Exam Data for Last 24 hours Vital signs and Labs for Last 24 Hours: Temp Pulse Resp BP Pulse Ox O2 Del Method O2 Flow Rate 98.7 F 62 26 H 177/95 H 100 BiPAP 3 02/13/24 16:00 02/13/24 16:00 02/13/24 16:00 02/13/24 16:00 02/13/24 16:00 02/13/24 16:00 02/12/24 23:07 FiO2 40 02/13/24 15:00 Laboratory Results - last 24 hr 02/12/24 18:35: WBC 10.6, RBC 3.57 L, Hgb 10.6 L, Hct 36.4 L, MCV 102.0 H, MCH 29.7, MCHC 29.1 L, RDW 13.2, Plt Count 241, MPV 10.0, Neut % (Auto) 83.1 H, Lymph % (Auto) 9.6 L, [place] % (Auto) 2.4, Eos % (Auto) 0.0 L, Baso % (Auto) 0.9, Neut # (Auto) 8.8 H, Lymph # (Auto) 1.0, [place] # (Auto) 0.3, Eos # (Auto) 0.0, Baso # (Auto) 0.1, PT 12.3, INR 1.11 H, APTT 27.6, Sodium 141, Potassium 4.7, Chloride 93 L, Carbon Dioxide 42 H*, Anion Gap 10.7, BUN 25 H, Creatinine 0.80, Estimated Creat Clear 38, Estimated GFR 69, Est GFR ( Amer) 84, Glucose 160 H, Calcium 9.5, Magnesium 2.1, Total Bilirubin 0.3, AST 29, ALT 18, Alkaline Phosphatase 94, Troponin I 0.13 H, Total Protein 6.5, Albumin 3.2 L, Globulin 3.3 H, Albumin/Globulin Ratio 1.0 L, TSH 0.34 L, Free T4 1.73, Plasma/Serum Alcohol < 10, HIV Ag/Ab Combo Qual Negative 02/12/24 19:02: VBG pH 7.26 L, VBG pCO2 78.8 H, VBG pO2 73.1 H, VBG HCO3 34.9 H, VBG Total CO2 37.3 H, VBG O2 Saturation 94.1 H, VBG Base Excess 7.9 H, VBG Lactic Acid 0.9 02/12/24 21:45: Troponin I 0.13 H 02/13/24 01:15: Troponin I 0.12 H 02/13/24 02:00: Specimen Source rr, O2 % 40, ABG pH 7.32 L, ABG pCO2 86.5 H, ABG pO2 83.6, ABG HCO3 43.4 H, ABG Total CO2 46.0 H, ABG O2 Saturation 97, ABG Base Excess 17.2 H, [place] Test y, Vent Rate 02/13/24 05:40: Urine Opiates Screen Negative, Urine Methadone Screen Negative, Ur Barbituates Screen Negative, Ur Phencyclidine Scrn Negative, Ur Amphetamines Screen Negative, U Benzodiazepines Scrn Negative, Urine Cocaine Screen Negative, U Marijuana (THC) Screen Negative 02/13/24 06:00: Specimen Source Left radial, O2 % 30% bipap 18/10, ABG pH 7.39, ABG pCO2 73.6 H, ABG pO2 53.3 L, ABG HCO3 43.3 H, ABG Total CO2 45.5 H, ABG O2 Saturation 89 L, ABG Base Excess 18.2 H, Clark Test Patient unable, Vent Rate 02/13/24 06:44: WBC 8.1, RBC 3.22 L, Hgb 9.6 L, Hct 32.6 L, MCV 101.2 H, MCH 29.8, MCHC 29.4 L, RDW 13.6, Plt Count 198, MPV 10.0, Neut % (Auto) 78.5, Lymph % (Auto) 13.1, [place] % (Auto) 4.1, Eos % (Auto) 0.0 L, Baso % (Auto) 0.5, Neut # (Auto) 6.4, Lymph # (Auto) 1.1, [place] # (Auto) 0.3, Eos # (Auto) 0.0, Baso # (Auto) 0.0, Sodium 139, Potassium 4.9, Chloride 96 L, Carbon Dioxide 39 H, Anion Gap 8.9, BUN 26 H, Creatinine 0.70, Estimated Creat Clear 36, Estimated GFR 81, Est GFR ( Amer) 98, Glucose 149 H, Calcium 8.7, Vitamin B12 446, Folate 7.22 02/13/24 10:00: SARS-CoV-2 (PCR) Not detected, Influenza Type A (PCR) Not detected, Influenza Type B (PCR) Not detected, RSV (PCR) Not detected, Rhinovirus (PCR) Not detected 02/13/24 15:22: VBG pH 7.40, VBG pCO2 66.7 H, VBG pO2 38.1, VBG HCO3 40.0 H, VBG Total CO2 42.1 H, VBG O2 Saturation 73.9 H, VBG Base Excess 15.2 H, VBG Lactic Acid 1.1 I & O for Last 24 hours: Intake & Output 02/10/24 02/11/24 02/12/24 02/13/24 23:59 23:59 23:59 23:59 Intake Total 370 / 370 Output Total 300 / 300 Balance 70 / 70 Weight 108.272 kg 108.272 kg Constitutional Constitutional: no acute distress *Routine HEENT Exam Head: Present normocephalic Eye: Present EOMI and PERRL ENT: Present mucous membranes moist *Routine Neck Exam Neck: Present supple; Absent lymphadenopathy *Routine Respiratory Exam Respiratory: Present wheezes; Absent CTA bilaterally *Routine Cardiovascular Exam Cardiovascular: Present RRR *Routine Abdominal Exam Abdominal: Present soft and normoactive bowel sounds; Absent tenderness *Routine Extremities Exam Extremities: Absent cyanosis, clubbing or edema *Routine Skin Exam Skin: Present warm; Absent rash *Routine Neurological Exam Neurological: Present alert Assessment and Plan *Assessment and plan (1) Metabolic encephalopathy: Status: Acute Category: Medical Code(s): G93.41 - Metabolic encephalopathy (2) Pneumonia: Status: Acute Qualifiers: Pneumonia type: due to unspecified organism Laterality: right Lung location: unspecified part of lung Qualified Code(s): J18.9 - Pneumonia, unspecified organism Category: Medical Code(s): J18.9 - Pneumonia, unspecified organism (3) Respiratory failure with hypoxia and hypercapnia: Status: Acute Qualifiers: Chronicity: acute on chronic Qualified Code(s): J96.21 - Acute and chronic respiratory failure with hypoxia; J96.22 - Acute and chronic respiratory failure with hypercapnia Category: Medical Code(s): J96.91 - Respiratory failure, unspecified with hypoxia; J96.92 - Respiratory failure, unspecified with hypercapnia (4) Bilateral pulmonary embolism: Status: Acute Category: Medical Code(s): I26.99 - Other pulmonary embolism without acute cor pulmonale (5) Acute on chronic hypoxic respiratory failure: Status: Acute Category: Medical Code(s): J96.21 - Acute and chronic respiratory failure with hypoxia (6) COPD exacerbation: Status: Acute Category: Medical Code(s): J44.1 - Chronic obstructive pulmonary disease with (acute) exacerbation Plan Patito Garcia is a 78-year-old female with a medical history significant for COPD on home O2, hypertension, pulmonary embolism, hypertension, dementia, anxiety/depression, hypothyroidism who presents with shortness of breath, confusion, falls and admitted for acute metabolic encephalopathy, acute on chronic hypercapnic respiratory failure, COPD exacerbation, community-acquired pneumonia. #Acute metabolic encephalopathy #Acute on chronic hypoxic, hypercapnic respiratory failure #Acute COPD exacerbation #Community-acquired pneumonia ? Initial VBG pH 7.26, pCO2 78.8. Placed on BiPAP with slow improvement. ? CT shows right upper lobe pneumonia. ? Levalbuterol, ipratropium, Pulmicort scheduled. ? Prednisone day 2/5. ? Ceftriaxone, azithromycin day 2/5 ? Weaned off BiPAP to 6 L nasal cannula today. VBG reassuring. ? Pulmonology consulted, pending further recommendations. #Pulmonary embolism ? Resume home Eliquis 5 mg twice daily. #Hypertension ? Resumed home Entresto. #Dementia - resumed home donepezil. #Anxiety/depression ? Resumed home buspirone, duloxetine. #Hypothyroidism ? Resumed home levothyroxine 125 mcg. TSH low during admission but this is during an acute illness. Will retest when patient is more stable, and in outpatient setting. Full code DVT prophylaxis Eliquis
[2024-02-13 17:44] LABS: Microscopic, Urine URINE MICROSCOPIC (MICROSCOPIC)
--- NOTE | 2024-02-13 17:53 | PC.NURSE ---
PT IS DOING WELL THIS EVENING. SHE IS MORE ALERT. SHE KNOWS WHERE SHE IS AND WHAT BROUGHT HER TO THE HOSPITAL BUT SHE COULD NOT TELL ME WHO SHE WAS. HER VITALS ARE STABLE. LUNG SOUNDS ARE DIMINISHED WITH EXPIRATORY WHEEZING. SHE SOUNDS VERY TIGHT. SHE HAS A PRODUCTIVE INTERMITTENT COUGH.
[2024-02-13 18:04] LABS: Appearance,Urine CLEAR (Clear); Bilirubin,Urine Negative (Negative); Blood, Urine Negative (Negative); Color,Urine YELLOW (Yellow); Glucose,Urine (UA) Negative (Negative); Ketones,Urine Negative (Negative); Leukocyte Esterase,Urine Negative (Negative); Nitrate,Urine Negative (Negative); Protein,Urine TRACE (Negative); Urobilinogen,Urine 0.2 EU/dl (0.2)
[2024-02-13 18:20] LABS: Bacteria,Urine 1+ /lpf
[2024-02-13] MEDS: SACUBITRIL/VALSARTAN 24-26MG TABLET 2 EACH PO (20:39)
[2024-02-13] MEDS: AZITHROMYCIN 250MG TABLET 250 MG PO (20:39)
[2024-02-13] MEDS: TRAZODONE 50MG TABLET 150 MG PO (20:39)
[2024-02-13] MEDS: MEMANTINE 10MG TABLET 5 MG PO (20:39)
[2024-02-13] MEDS: BUSPIRONE HCL 10 MG TABLET 30 MG PO (20:39)
[2024-02-13] MEDS: APIXABAN 5MG TABLET 5 MG PO (20:39)
[2024-02-13] MEDS: PRAVASTATIN 20MG TAB 20 MG PO (20:39)
[2024-02-13] MEDS: CEFTRIAXONE SODIUM 1 GM in 0.9 % SODIUM CHLORIDE 50 ML IV (20:40)
[2024-02-14] VITALS (16 sets, daily range): BP systolic 125–172; BP diastolic 50–102; PULSE 57–80; RESP 14–26; TEMP 36.3–37.3; O2SAT 93–99; BMI 41.8
[2024-02-14] MEDS: IPRATROPIUM/ALBUTEROL 3 ML NEB IH ×4 (05:46→23:22)
[2024-02-14] MEDS: BUDESONIDE 0.5MG/2ML NEB 0.5 MG IH ×2 (05:46→18:52)
[2024-02-14] MEDS: LEVOTHYROXINE 125MCG (0.125MG) TAB 125 MCG PO (06:26)
[2024-02-14 07:05] LABS: VBG HCO3 37.5 mmol/L (23-30); VBG Oxygen Saturation 99.1 % (50-70); VBG PCO2 44.2 mmol/L (35-51); VBG PO2 137.3 mmol/L (28-40); VBG Total CO2 38.8 mmol/L (23-27)
[2024-02-14 07:06] LABS: VBG PH 7.55 mmol/L (7.31-7.41)
[2024-02-14 07:39] LABS: Basophils # 0.1 K/mm3 (0-0.2); Basophils % 0.8 % (0.1-2.0); Eosinophils % 0.1 % (0.1-12.0); Hematocrit 36.6 % (37.0-47.0); Hemoglobin 10.8 g/dL (12.2-16.2); Lymphocytes # 2.9 K/mm3 (0.7-4.5); Lymphocytes % 28.6 % (10-50); Mean Corpuscular HGB Conc 29.5 g/dL (31.8-35.4); Mean Corpuscular Hemoglobin 29.3 pg (27.0-31.2); Mean Corpuscular Volume 99.2 fl (81-99); Mean Platelet Volume 9.9 fl (7.4-10.4); Monocytes % 10.2 % (1.7-9.3); Neutrophils # 5.8 K/mm3 (1.8-7.8); Neutrophils % 58.1 % (37.0-80.0); Platelet Count 224 K/mm3 (142-424); Red Blood Count 3.69 M/mm3 (4.20-5.40)
[2024-02-14 07:57] LABS: Alanine Aminotransferase 16 U/L (12-78); Albumin Level 2.9 g/dl (3.5-5.0); Albumin/Globulin Ratio 1.2 (1.1-1.8); Alkaline Phosphatase 83 U/L (38-126); Aspartate Amino Transferase 20 U/L (14-36); Bilirubin,Total 0.2 mg/dl (0.2-1.3); Blood Urea Nitrogen 33 mg/dl (7-17); Calcium 8.6 mg/dl (8.4-10.2); Chloride 93 mmol/L (98-107); Creatinine Clearance Estimated 36 mL/min (50-200); Estimated Glomerular Filt Rate 69 ml/min (>60); GFR (African American) 84 ML/MIN (>60); Globulin 2.5 g/dL (1.3-3.2); Glucose 105 mg/dl (74-100); Magnesium 2.5 mg/dl (1.6-2.3); Potassium 4.1 mmoL/L (3.5-5.1); Sodium 138 mmol/L (136-145); Total Protein,Serum 5.4 g/dl (6.3-8.2)
[2024-02-14 08:04] LABS: Anion Gap 9.1 mEq/L (5-15); Carbon Dioxide 40 mmol/L (22.0-30.0)
--- NOTE | 2024-02-14 08:07 | CA_ITS ---
APPROVED REPORT EXAM: Comprehensive 2D, Doppler, and color-flow Echocardiogram Sand Molder: Kari Lagos RVT Ht: 5 ft 3 in Wt: 236lbs BSA: 2.07 BP: 177/95 mmHg Indications: HYPOXIA,RESP FAILURE,CAD,PNEUMONIA,HX PE,COPD,SOA,HTN 2D Dimensions IVSd 2.08 cm F: 0.6-1.0 LVEF (Visual) 51.80 % PWd 1.55 cm F: 0.6 - 1.0 LA Volume 90.30 mL LVDd 3.23 cm F: 3.9 - 5.3 LA Volume Index 43.41 mL/m2 (M/F) 16-34 LVDs 2.40 cm F: 2.2 - 3.5 EF AP4 53.30 % Left Atrium 5.11 cm F: 2.7 - 3.8 GL Strain -21.7 % RVID Base (AP4) 2.69 cm (M/F) 2.5-4.1 LVOT 2.01 cm (M/F) 1.5-2.5 M-Mode Dimensions LVDd 3.23 cm (3.5-5.7) Ao Diam 2.76 cm (2.0-3.7) LVDs 2.40 cm (3.5-5.7) IVSd 2.08 cm (0.6-1.1) PWd 1.55 cm (0.6-1.1) FS 25.70% TAPSE 2.50 (<1.7) LV Diastology E Decel Time 211 (160-240 msec) E/A Ratio 1.1 MED E' 6.7 (>= 7 cm/sec) E'/MED E' Ratio 14.10 (<= 14) LAT E' 4.3 (>= 10 cm/sec) E/LAT E' Ratio 21.98 (<= 14) Aortic Valve LVOT Max 123.0 (70-110 cm/s) SAFIA Index 1.42 cm2/m2 LVOT VTI 24.44 cm AoV Peak Zak. 160.0 (50-130 cm/s) AO Peak GR. 10.30 mmHg AO Mean GR. 5.70 (<5 mmHg) AO VTI 26.4 (18-25 cm) SAFIA (VTI) 2.94 (2.5-4.5 cm2) Mitral Valve MV E Max Zak. 95.0 (40-130 cm/s) MV A Velocity 88.0 (40-130 cm/s) E/A Ratio 1.08 MV Decel. Time 211 (160-240 ms) Tricuspid Valve TR P. Velocity 352.00 cm/s RAP Estimate 10.00 mmHg RVSP 59.70 mmHg Left Ventricle The left ventricle is normal size. The left ventricular systolic function is normal. The left ventricular ejection fraction is within the normal range. There is increased LV wall thickness. IVSD is 1.4 cm. There is normal LV segmental wall motion. Diastolic function is indeterminate. LVEF is 60%. Right Ventricle Right ventricle is mild to moderately dilated. Right ventricle is mildly hypokinetic. Atria Left atrium is severely dilated. Right atrium is moderately dilated. There is no Doppler evidence of interatrial shunt. Aortic Valve Aortic valve is mildly thickened. There is no aortic valvular stenosis. Trace aortic regurgitation. Mitral Valve Moderate to severe mitral annular calcification. The mitral valve leaflets are mildly thickened. No evidence of mitral valve stenosis. Mean AV gradient 3 mmHg (HR 79 bpm). Mild mitral regurgitation. Tricuspid Valve The tricuspid valve leaflets are thin and pliable. Mild tricuspid regurgitation. RVSP is 30-35 mmHg. Pulmonic Valve The pulmonary valve is normal in structure. Trace pulmonic regurgitation. Great Vessels The aortic root is normal in size. IVC is normal in size and collapses >50% with inspiration. Pericardium There is no pericardial effusion. Other Information Study Quality: Fair Conclusion Normal LV systolic function. Marked increase in LV wall thickness. IVSD 1.4 cm. Mild to moderate RV dilation with mild reduction in RV function. Biatrial dilation. Mild TR, mild MR. RVSP 30-35 mmHg. In the setting of presence of symptoms, marked increase in LV wall thickness, and biatrial dilation, further evaluation for infiltrative cardiomyopathy is recommended with outpatient cardiac MRI (amyloidosis protocol), PYP nuclear scan, and amyloidosis lab testing. Electronically signed by : Lexi Watson MD 02/14/2024 17:47:24
--- NOTE | 2024-02-14 10:25 | HMH.PTEV ---
Physical Therapy Evaluation Rehab PT IP Evaluation Start: 02/13/24 22:08 Freq: ONCE Status: Active Protocol: Document 02/14/24 10:19 SANJANA (Rec: 02/14/24 10:24 SANJANA [id number]) Subjective/History History History 78-year-old female who has a past medical history significant for home O2 dependency, COPD, hypertension , pulmonary embolism, lung nodule, obesity, tremors, and multiple falls who presents with a chief complaint of dyspnea, productive cough, falls, confusion, and shortness of breath. She reports she lives with her son and granddaughter, uses a RW and w/c for mobility at baseline, and requires assistance with bathing and cooking at baseline. Subjective Subjective She currently is alert to person and month, but not place. She does agree to mobility assessment. Rehab PT IP Eval Objective Appearance Patient Behavior Appropriate Patient Orientation Person,Time Difficulty following instructions none Speech Pattern Clear Ambulation Patient Able to Ambulate Yes Ambulation Observation IP General Gait Pattern Observation Shuffling Step Ambulation Distance (feet) 5 Ambulation Assistive Device Rolling Walker Ambulation Ability Contact Guard/Hand Hold Balance Ability to Arise Able, uses arms to help Standing Balance Steady, wide stance Dynamic Standing Balance Ability Fair Transfers Bed Transfer Ability Minimal x 2 (25% assist) Chair Transfer Ability Minimal x 2 (25% assist) Sit to Stand Bed Transfer Ability Minimal x 2 (25% assist) Rehab PT IP prob,goals,plan Problems Date of Evaluation: 02/14/24 PT IP Problems Bed Mobility,Transfers,Gait Rehab Potential Rehab Potential Good Plan PT Intervention Plan Bed Mobility,Transfers,Gait, Safety PT Plan Frequency Daily Duration LOS Discharge Goals Bed Transfer Ability Contact Guard/Hand Hold Sit to Stand Chair Transfer Ability Contact Guard/Hand Hold Ambulation Assistive Device Rolling Walker Ambulation Distance (feet) 20 Discharge Plan PT Discharge Plan Pt is currently most appropriate for rehab placement once medically stable for d/c. She may improve enough to return home with family assist if she meets all goals with therapy. Skilled therapy is indicated to improve strength, gait, and transfer ability and return pt to PLOF. Eval Complexity Eval Charge Codes 01914 - High Complexity PHYSICIAN CERTIFICATION: I certify the specified therapy services for Patito Lerma Hope are required, authorized, and reviewed every 30 days.
[2024-02-14] MEDS: BUSPIRONE HCL 10 MG TABLET 30 MG PO ×2 (10:59→20:49)
[2024-02-14] MEDS: guaiFENesin 600 MG TAB.ER.12H PO ×2 (11:00→20:50)
[2024-02-14] MEDS: DONEPEZIL 10MG TAB 10 MG PO (11:00)
[2024-02-14] MEDS: APIXABAN 5MG TABLET 5 MG PO ×2 (11:00→20:50)
[2024-02-14] MEDS: ATENOLOL 25MG TABLET 25 MG PO (11:00)
[2024-02-14] MEDS: DULOXETINE 30MG CAPSULE.DR 60 MG PO (11:01)
[2024-02-14] MEDS: MEMANTINE 10MG TABLET 5 MG PO ×2 (11:01→20:50)
[2024-02-14] MEDS: SACUBITRIL/VALSARTAN 24-26MG TABLET 2 EACH PO ×2 (11:01→20:49)
[2024-02-14] MEDS: predniSONE 20MG TAB 40 MG PO (11:01)
[2024-02-14] MEDS: AMLODIPINE 5MG TABLET 5 MG PO (11:01)
--- NOTE | 2024-02-14 11:06 | HMH.OTEV ---
OT Inpatient Evaluation Rehab OT IP Evaluation Start: 02/13/24 21:01 Freq: ONCE Status: Active Protocol: Document 02/14/24 11:01 DEIRDRE (Rec: 02/14/24 11:05 [facility] [id number]) Rehab OT IP Assessment Subjective History Pt oriented x 2 on arrival and agreeable to engage in therapy evaluation. Pt is a 78-year-old female who has a past medical history significant for home O2 dependency, COPD, hypertension , pulmonary embolism, lung nodule, obesity, tremors, and multiple falls who presents with a chief complaint of dyspnea, productive cough, falls, confusion, and shortness of breath. She reports she lives with her son and granddaughter, uses a RW and w/c for functional transfers at baseline. Pt claims she is normally independent with dressing and feeding, but does require assistance with bathing at baseline. Pt is dependent upon family for completion of all IADLs. Pt no longer drives. Subjective Pt reports concerns about getting up due to weakness. Objective Patient Orientation Person,Birthday Bed Mobility bed mobility-scooting,bed mobility - supine/sit Assist Level Minimal x 2 (25% assist) Transfer Training Sit/Stand Transfer Assist Level Minimal x 2 (25% assist) Lower Body Dressing Ability Maximum Assistance Rehab OT IP prob,goals,plan Problems Date of Evaluation: 02/14/24 OT IP Problems Bed Mobility,Transfers,Balance ,Self care,Safety Rehab Potential Rehab Potential Good Equipment Needs Assistive Devices Rolling / Wheeled Walker, Wheelchair Plan OT intervention Plan Bed Mobility,Transfers,Balance ,Self care,Safety,Therapeutic Exercise OT Plan Frequency Daily Duration LOS Discharge Goals Bed Mobility Ability Assistance x1 Sit to Stand Chair Transfer Ability Minimal x 1 (25% assist) Chair Transfer Ability Minimal x 1 (25% assist) Chair Transfer Technique Sit to/from Ambulatory Chair Transfer Assistive Devices Rolling Walker Feeding Ability Assist with Tray Set Up Lower Body Dressing Ability Minimal Assistance Upper Body Dressing Ability Standby Assistance Bathing Ability Minimal Assistance Performing Toilet Hygiene Ability Minimal Assistance Overall Commode/Toilet Transfer Ability Minimal Assistance Commode/Toilet Transfer Technique Sit to/from Ambulatory Commode/Toilet Transfer Assistive Grab Bars Devices Oral Care Assist Standby Assistance Discharge Plan OT Discharge Plan Pt will continue to be seen for OT services while at [facility]. Pt would benefit most from short term rehab at SNF following discharge. Continued skilled therapy is important in order for patient to improve strength, safety, endurance, ADL independence, and functional transfers to reach PLOF. Eval Complexity Eval Charge Codes 77112 - Moderate Complexity PHYSICIAN CERTIFICATION: I certify the specified therapy services for Patito Garcia are required, authorized, and reviewed every 30 days.
--- NOTE | 2024-02-14 11:29 | SW/DCPLANNER ---
Addendum entered by Florencia Jacome 02/16/24 07:25: patient was accepted by [facility] Addendum entered by Ilene Macias 02/15/24 13:41: Patient information/order faxed to [facility]/ [facility]. Addendum entered by Ilene Macias 02/15/24 13:16: Per PT/OT patient did show improvement this AM and home w/ family and home health services is now recommended. Patient is agreeable to return home w/ home health but requested that I call and speak w/ her son (Orestes) whom she lives w/ at this time. Orestes is also agreeable for patient to return home w/ home health. Patient/family does not have an agency preference. Home health services will be set up today. Per MD patient will discharge home this afternoon. Orestes [phone] Original Note: I attempted to contact patient via phone regarding plans once medically stable for discharge. No answer at this time VM full. PT/OT evaluated patient and recommended SNF level of care at time of discharge. I will continue to attempt to contact patient. Discharge date is unknown at this time.
[2024-02-14] MEDS: ACETAMINOPHEN 325MG TAB 650 MG PO (11:50)
[2024-02-14 14:27] LABS: Troponin I 0.07 ng/ml (0.00-0.034)
--- NOTE | 2024-02-14 19:10 | P.PN_ITS ---
Subjective *Date: 02/14/24 *Time: 19:10 Interval history: Patient is doing well, no chest pain or shortness of breath. Will trial no BiPAP tonight. Exam Data for Last 24 hours Vital signs and Labs for Last 24 Hours: Temp Pulse Resp BP Pulse Ox O2 Del Method O2 Flow Rate 98.1 F 62 21 146/62 H 93 L Nasal Cannula 2 02/14/24 16:00 02/14/24 18:52 02/14/24 15:49 02/14/24 15:49 02/14/24 18:52 02/14/24 18:59 02/14/24 18:59 FiO2 40 02/14/24 02:10 Laboratory Results - last 24 hr 02/14/24 06:49: WBC 10.0, RBC 3.69 L, Hgb 10.8 L, Hct 36.6 L, MCV 99.2 H, MCH 29.3, MCHC 29.5 L, RDW 14.0, Plt Count 224, MPV 9.9, Neut % (Auto) 58.1, Lymph % (Auto) 28.6, [place] % (Auto) 10.2 H, Eos % (Auto) 0.1, Baso % (Auto) 0.8, Neut # (Auto) 5.8, Lymph # (Auto) 2.9, [place] # (Auto) 1.0, Eos # (Auto) 0.0, Baso # (Auto) 0.1, VBG pH 7.55 H, VBG pCO2 44.2, VBG pO2 137.3 H, VBG HCO3 37.5 H, VBG Total CO2 38.8 H, VBG O2 Saturation 99.1 H, VBG Base Excess 15.0 H, VBG Lactic Acid 2.0, Sodium 138, Potassium 4.1, Chloride 93 L, Carbon Dioxide 40 H, Anion Gap 9.1, BUN 33 H D, Creatinine 0.80, Estimated Creat Clear 36, Estimated GFR 69, Est GFR ( Amer) 84, Glucose 105 H, Calcium 8.6, Magnesium 2.5 H D, Total Bilirubin 0.2, AST 20 D, ALT 16, Alkaline Phosphatase 83, Total Protein 5.4 L, Albumin 2.9 L, Globulin 2.5, Albumin/Globulin Ratio 1.2 02/14/24 13:55: Troponin I 0.07 H I & O for Last 24 hours: Intake & Output 02/11/24 02/12/24 02/13/24 02/14/24 23:59 23:59 23:59 23:59 Intake Total 770 / 1000 1150 / 1150 Output Total 330 / 330 500 / 500 Balance 440 / 670 650 / 650 Weight 108.272 kg 108.272 kg 107.161 kg Microbiology Reports for the Last 24 Hours: Microbiology 02/13/24 17:28 Sputum - Expectorated Sputum Gram Stain - Final Constitutional Constitutional: no acute distress and obese *Routine HEENT Exam Head: Present normocephalic Eye: Present EOMI and PERRL ENT: Present mucous membranes moist *Routine Neck Exam Neck: Present supple; Absent lymphadenopathy *Routine Respiratory Exam Respiratory: Present wheezes; Absent CTA bilaterally *Routine Cardiovascular Exam Cardiovascular: Present RRR *Routine Abdominal Exam Abdominal: Present soft and normoactive bowel sounds; Absent tenderness *Routine Extremities Exam Extremities: Absent cyanosis, clubbing or edema *Routine Skin Exam Skin: Present warm; Absent rash *Routine Neurological Exam Neurological: Present alert Assessment and Plan *Assessment and plan (1) Metabolic encephalopathy: Status: Acute Category: Medical Code(s): G93.41 - Metabolic encephalopathy (2) Pneumonia: Status: Acute Qualifiers: Pneumonia type: due to unspecified organism Laterality: right Lung location: unspecified part of lung Qualified Code(s): J18.9 - Pneumonia, unspecified organism Category: Medical Code(s): J18.9 - Pneumonia, unspecified organism (3) Respiratory failure with hypoxia and hypercapnia: Status: Acute Qualifiers: Chronicity: acute on chronic Qualified Code(s): J96.21 - Acute and chronic respiratory failure with hypoxia; J96.22 - Acute and chronic respiratory failure with hypercapnia Category: Medical Code(s): J96.91 - Respiratory failure, unspecified with hypoxia; J96.92 - Respiratory failure, unspecified with hypercapnia (4) Bilateral pulmonary embolism: Status: Acute Category: Medical Code(s): I26.99 - Other pulmonary embolism without acute cor pulmonale (5) Acute on chronic hypoxic respiratory failure: Status: Acute Category: Medical Code(s): J96.21 - Acute and chronic respiratory failure with hypoxia (6) COPD exacerbation: Status: Acute Category: Medical Code(s): J44.1 - Chronic obstructive pulmonary disease with (acute) exacerbation Plan Patito Garcia is a 78-year-old female with a medical history significant for COPD on home O2, hypertension, pulmonary embolism, hypertension, dementia, anxiety/depression, hypothyroidism who presents with shortness of breath, confusion, falls and admitted for acute metabolic encephalopathy, acute on chronic hypercapnic respiratory failure, COPD exacerbation, community-acquired pneumonia. #Acute metabolic encephalopathy, resolved #Acute on chronic hypoxic, hypercapnic respiratory failure #Acute COPD exacerbation #Community-acquired pneumonia ? Initial VBG pH 7.26, pCO2 78.8. Placed on BiPAP with slow improvement. Weaned to 2 L nasal cannula. ? CT shows right upper lobe pneumonia. ? Patient's mentation is back to baseline. Pleasant and conversational ? Levalbuterol and ipratropium q6rt. ? Started Trelegy for tomorrow, discontinued Pulmicort. ? Prednisone day 3/5. ? Ceftriaxone, azithromycin day 3/5. ? Inadvertently placed on BiPAP last night, VBG today shows respiratory alkalosis. Will trial no BiPAP tonight and obtain morning VBG to assess need for BiPAP. ? Pulmonology consulted, pending further recommendations. #NSTEMI, likely type II ? Troponin peaked to 0.13, down to 0.07. EKG without acute ischemic findings. ECHO without wall motion abnormalities, but does show increased LV wall thickness. ? Likely type II NSTEMI in the setting of severe COPD exacerbation. ? Cardiology consulted, pending further recommendations. ? Started aspirin 81 mg, home pravastatin 20 mg. Will hold off on beta-blockers pending cardiology evaluation. ? Follow-up morning A1c, lipid panel. #Falls at home #Physical deconditioning - PT/OT consulted, recommended SNF placement. Case management assisting with placement. #Chronic pulmonary embolism ? Resume home Eliquis 5 mg twice daily. #Hypertension ? Resumed home Entresto. #Dementia - resumed home donepezil. #Anxiety/depression ? Resumed home buspirone, duloxetine. #Hypothyroidism ? Resumed home levothyroxine 125 mcg. TSH low during admission but this is during an acute illness. Will retest when patient is more stable, and in outpatient setting. Full code DVT prophylaxis Eliquis
[2024-02-14] MEDS: CEFTRIAXONE SODIUM 1 GM in 0.9 % SODIUM CHLORIDE 50 ML IV (20:48)
[2024-02-14] MEDS: PRAVASTATIN 20MG TAB 20 MG PO (20:49)
[2024-02-14] MEDS: TRAZODONE 50MG TABLET 150 MG PO (20:49)
[2024-02-14] MEDS: humaLOG 100 UNITS/ML 10ML VIAL (SSI) SUBCUT (20:50)
[2024-02-14] MEDS: AZITHROMYCIN 250MG TABLET 250 MG PO (20:50)
[2024-02-15] VITALS (7 sets, daily range): BP systolic 110–148; BP diastolic 45–70; PULSE 56–80; RESP 13–19; TEMP 36.5–36.7; O2SAT 91–98; BMI 43.0
[2024-02-15] MEDS: IPRATROPIUM/ALBUTEROL 3 ML NEB IH ×2 (07:11→11:09)
[2024-02-15 07:21] LABS: VBG Base Excess 2.1 mmol/L (-2.4-2.3); VBG HCO3 26.8 mmol/L (23-30); VBG Oxygen Saturation 98.9 % (50-70); VBG PCO2 43.5 mmol/L (35-51); VBG PH 7.41 mmol/L (7.31-7.41); VBG PO2 142.4 mmol/L (28-40); VBG Total CO2 28.1 mmol/L (23-27)
[2024-02-15 07:25] LABS: Lactate Venous 3.1 mmol/L (0.4-2.0)
[2024-02-15] MEDS: LEVOTHYROXINE 125MCG (0.125MG) TAB 125 MCG PO (07:36)
[2024-02-15 08:19] LABS: Basophils # 0.1 K/mm3 (0-0.2); Basophils % 0.6 % (0.1-2.0); Eosinophils % 0.1 % (0.1-12.0); Hematocrit 39.7 % (37.0-47.0); Hemoglobin 11.6 g/dL (12.2-16.2); Lymphocytes # 2.9 K/mm3 (0.7-4.5); Lymphocytes % 26.7 % (10-50); Mean Corpuscular HGB Conc 29.2 g/dL (31.8-35.4); Mean Corpuscular Hemoglobin 29.2 pg (27.0-31.2); Mean Platelet Volume 10.3 fl (7.4-10.4); Monocytes # 1.1 K/mm3 (0.1-1.0); Monocytes % 9.6 % (1.7-9.3); Neutrophils # 6.7 K/mm3 (1.8-7.8); Platelet Count 207 K/mm3 (142-424); Red Blood Count 3.97 M/mm3 (4.20-5.40); Red Cell Distribution Width 14.1 % (11.5-17.5)
[2024-02-15 08:23] LABS: Alanine Aminotransferase 15 U/L (12-78); Albumin Level 2.9 g/dl (3.5-5.0); Albumin/Globulin Ratio 1.1 (1.1-1.8); Alkaline Phosphatase 67 U/L (38-126); Aspartate Amino Transferase 40 U/L (14-36); Bilirubin,Total 0.4 mg/dl (0.2-1.3); Blood Urea Nitrogen 30 mg/dl (7-17); Calcium 8.5 mg/dl (8.4-10.2); Chloride 95 mmol/L (98-107); Creatinine Clearance Estimated 36 mL/min (50-200); Estimated Glomerular Filt Rate 81 ml/min (>60); GFR (African American) 98 ML/MIN (>60); Globulin 2.7 g/dL (1.3-3.2); Glucose 103 mg/dl (74-100); Magnesium 2.3 mg/dl (1.6-2.3); Potassium 4.3 mmoL/L (3.5-5.1); Sodium 139 mmol/L (136-145); Total Protein,Serum 5.6 g/dl (6.3-8.2)
[2024-02-15 08:30] LABS: Anion Gap 9.3 mEq/L (5-15); Carbon Dioxide 39 mmol/L (22.0-30.0)
[2024-02-15 08:35] LABS: Chol/HDL Ratio 4.1 (1-3.5); Cholesterol 128 mg/dl (140-200); Direct LDL Cholesterol 71.01 mg/dL (100-129); HDL Cholesterol 31 mg/dl (40-60); NT Pro Brain Natriuretic Pep. 1300 pg/mL (0-450); Triglycerides 98 mg/dl (30-150); VLDL Cholesterol 20 mg/dL (0-40)
[2024-02-15] MEDS: DONEPEZIL 10MG TAB 10 MG PO (08:57)
[2024-02-15] MEDS: SACUBITRIL/VALSARTAN 24-26MG TABLET 2 EACH PO (08:57)
[2024-02-15] MEDS: predniSONE 20MG TAB 40 MG PO (08:57)
[2024-02-15] MEDS: APIXABAN 5MG TABLET 5 MG PO (08:57)
[2024-02-15] MEDS: BUSPIRONE HCL 10 MG TABLET 30 MG PO (08:57)
[2024-02-15] MEDS: ATENOLOL 25MG TABLET 25 MG PO (08:58)
[2024-02-15] MEDS: AMLODIPINE 5MG TABLET 5 MG PO (08:58)
[2024-02-15] MEDS: guaiFENesin 600 MG TAB.ER.12H PO (08:58)
[2024-02-15] MEDS: DULOXETINE 30MG CAPSULE.DR 60 MG PO (08:58)
[2024-02-15] MEDS: MEMANTINE 10MG TABLET 5 MG PO (08:58)
[2024-02-15] MEDS: ASPIRIN EC 81MG TABLET 81 MG PO (09:00)
[2024-02-15 09:01] LABS: Hemoglobin A1C 5.1 % (4.0-6.0)
--- NOTE | 2024-02-15 10:15 | P.CONS_ITS ---
History of Present Illness History of present illness: Ms. Garcia is a 78-year-old female with reported history of COPD, chronic hypoxic respiratory failure pulmonary embolism presented to the ER with worsening respiratory distress and pulmonary was called for further evaluation and management. Patient today admits continued improvement in her respiratory distress. [facility] Disclaimer: The information contained in this section may have been updated after the patient was seen, as this information can be updated by other users. Medical History CAD (coronary artery disease) HTN (hypertension) Heart failure Chronic respiratory failure with hypoxia History of COPD Second hand smoke exposure Surgical History History of left knee replacement Family History Other No significant family history Social History Smoking Status: Never smoker alcohol intake: never current occupational status: retired Travel in the last 8 weeks: None Have you lived/traveled outside [place] in past 30 days?: No Contact w/someone who lives/traveled outside [place] past 30 days?: No Exposure to someone with infectious disease in past 14 days?: No Do you have a fever (greater than 100.4 F or 38 C)?: No Have you tested positive for COVID-19: No Exposed to someone with COVID-19 in past 14 days?: No Do you have a sore throat?: No Do you have a cough?: No Do you have any weakness?: No Are you experiencing any nausea/vomitting?: No Do you have any diarrhea?: No Are you experiencing any unusual bleeding?: No Do you have any muscle aches/pain?: No Do you have any abdominal pain?: No Are you experiencing loss of taste or smell?: No Review of Systems Constitutional Constitutional: Reports anorexia, Reports body ache(s) and Reports fatigue Eyes Eyes: Denies eye discharge, Denies dry eyes, Denies irritation and Denies itchy eyes ENT Ears, Nose, Mouth, and Throat: Denies epistaxis, Denies facial pain, Denies lip swelling and Denies throat swelling *Cardiovascular Cardiovascular: Reports dyspnea and Reports dyspnea on exertion *Respiratory Respiratory: Reports cough, Reports dyspnea, Reports dyspnea on exertion, Reports excessive phlegm production, Denies hemoptysis, Denies pain on inspiration, Denies pain with cough and Denies wheezing *Gastrointestinal Gastrointestinal: Denies abdominal pain, Denies belching and Denies cramping *Musculoskeletal Musculoskeletal: Reports back pain, Reports myalgias and Reports other (No small joint swelling or Pain) *Neurologic Neurologic: Reports confusion Psychiatric Psychiatric: Reports confusion Endocrine Endocrine: Reports fatigue and Denies heat intolerance Hematologic/Lymphatic Hematologic/Lymphatic: Denies easy bleeding and Denies lymphadenopathy Allergic/Immunologic Allergic/Immunologic: Denies itchy eyes, Denies lip swelling, Denies throat swelling and Denies wheezing Pulmonology Exam Inpatient Vital signs and Labs for Last 24 Hours: Temp Pulse Resp BP Pulse Ox O2 Del Method O2 Flow Rate 97.8 F 68 19 148/70 H 91 L Nasal Cannula 3 02/15/24 08:00 02/15/24 08:00 02/15/24 08:00 02/15/24 08:00 02/15/24 08:00 02/15/24 08:00 02/15/24 07:12 FiO2 40 02/14/24 02:10 Laboratory Results - last 24 hr 02/14/24 06:49: Hemoglobin A1c 5.1 02/14/24 13:55: Troponin I 0.07 H 02/15/24 06:00: VBG pH 7.41, VBG pCO2 43.5, VBG pO2 142.4 H, VBG HCO3 26.8, VBG Total CO2 28.1 H, VBG O2 Saturation 98.9 H, VBG Base Excess 2.1, VBG Lactic Acid 3.1 H 02/15/24 06:35: WBC 11.0 H, RBC 3.97 L, Hgb 11.6 L, Hct 39.7, MCV 100.0 H, MCH 29.2, MCHC 29.2 L, RDW 14.1, Plt Count 207, MPV 10.3, Neut % (Auto) 61.0, Lymph % (Auto) 26.7, Jefferson % (Auto) 9.6 H, Eos % (Auto) 0.1, Baso % (Auto) 0.6, Neut # (Auto) 6.7, Lymph # (Auto) 2.9, Jefferson # (Auto) 1.1 H, Eos # (Auto) 0.0, Baso # (Auto) 0.1, Sodium 139, Potassium 4.3, Chloride 95 L, Carbon Dioxide 39 H, Anion Gap 9.3, BUN 30 H, Creatinine 0.70, Estimated Creat Clear 36, Estimated GFR 81, Est GFR ( Amer) 98, Glucose 103 H, Calcium 8.5, Magnesium 2.3, Total Bilirubin 0.4, AST 40 H D, ALT 15, Alkaline Phosphatase 67, Total Protein 5.6 L, Albumin 2.9 L, Globulin 2.7, Albumin/Globulin Ratio 1.1 02/15/24 07:30: NT-Pro-B Natriuret Pep 1300 H, Triglycerides 98, Cholesterol 128 L, LDL Cholesterol Direct 71.01 L, VLDL Cholesterol 20, HDL Cholesterol 31 L, C holesterol/HDL Ratio 4.1 H I & O for Labs for Last 24 Hours: Intake & Output 02/12/24 02/13/24 02/14/24 02/15/24 23:59 23:59 23:59 23:59 Intake Total 770 / 1000 1150 / 1440 560 / 560 Output Total 330 / 330 500 / 500 350 / 350 Balance 440 / 670 650 / 940 210 / 210 Weight 238 lb 11.2 oz 238 lb 11.2 oz 236 lb 4 oz 242 lb 9.6 oz Microbiology Reports for the Last 24 Hours: Microbiology 02/13/24 17:28 Sputum - Expectorated Sputum Gram Stain - Final 02/13/24 17:28 Sputum - Expectorated Sputum Sputum Culture - Preliminary Constitutional: Present moderate distress Head: Present normocephalic and atraumatic ENT: Present normal exam, normal oropharynx and mucous membranes moist Neck: Present normal inspection and full ROM Respiratory: Present respiratory distress, rhonchi and able to speak in complete sentences; Absent wheezes, crackles or diminished air movement Cardiac: Present S1/S2, Tachycardia and radial pulses present GI: Present soft and distention; Absent tenderness or guarding Rectal (female): Present deferred (female): Present deferred Skin: Present intact; Absent cyanosis or jaundice Neuro: Present alert, awake and oriented x 3 Extremities: Present normal inspection; Absent clubbing or cyanosis Psychiatric: Present normal affect and cooperative Meds Home Medications and Allergies Home Medications ?Medication ?Instructions ?Recorded ?Confirmed ?Type amlodipine 5 mg tablet 5 mg PO DAILY 03/12/23 02/13/24 History atenolol 25 mg tablet 25 mg PO DAILY 03/12/23 02/13/24 History donepezil 10 mg tablet 10 mg PO DAILY 03/12/23 02/13/24 History duloxetine 60 mg capsule,delayed 60 mg PO DAILY 03/12/23 02/13/24 History release hydroxyzine HCl 25 mg tablet 25 mg PO Q8HP PRN Anxiety 03/12/23 02/13/24 History levothyroxine 125 mcg tablet 125 mcg PO DAILYDM 03/12/23 02/13/24 History pravastatin 20 mg tablet 20 mg PO HS 03/12/23 02/13/24 History trazodone 150 mg tablet 150 mg PO HS 03/12/23 02/13/24 History albuterol sulfate 2.5 mg/3 mL 2.5 mg inhalation Q4HP PRN 10/14/23 02/13/24 History (0.083 %) solution for nebulization Shortness Of Breath Or Wheezing famotidine 40 mg tablet 40 mg PO DAILY 10/14/23 02/13/24 History memantine 5 mg tablet 5 mg PO BID 10/14/23 02/13/24 History sacubitril 49 mg-valsartan 51 mg 1 tab PO BID 10/14/23 02/13/24 History tablet (Entresto) doxycycline hyclate 100 mg capsule 100 mg PO BID #14 caps 10/15/23 02/13/24 Rx apixaban 5 mg tablet (Eliquis) 5 mg PO BID #180 tabs 11/08/23 02/13/24 Rx alendronate 70 mg tablet 70 mg PO WEEKLY 02/12/24 02/13/24 History buspirone 30 mg tablet 30 mg PO BID 02/12/24 02/13/24 History guaifenesin 600 mg tablet, 1,200 mg PO BID 02/12/24 02/13/24 History extended release 12 hr prednisone 20 mg tablet 20 mg PO DAILY 02/12/24 02/13/24 History albuterol sulfate 90 mcg/actuation 2 puff inhalation Q4HP PRN 02/13/24 02/13/24 History aerosol inhaler (Ventolin HFA) shortness of breath or wheezing budesonide-formoterol HFA 160 2 inh inhalation BIDRT 02/13/24 02/13/24 History mcg-4.5 mcg/actuation aerosol inhaler (Breyna) New Prescriptions to Start Prescriptions: Allergies Allergy/AdvReac Type Severity Reaction Status Date / Time sulfamethoxazole (From AdvReac Mild Nausea Verified 11/08/23 15:49 Bactrim) trimethoprim (From Bactrim) AdvReac Mild Nausea Verified 11/08/23 15:49 Results Laboratory Findings 02/15/24 06:35 02/15/24 06:35 ABG ABG pH 7.39 mmol/L (7.35-7.45) 02/13/24 06:00 ABG pCO2 73.6 mmhg (35.0-45.0) H 02/13/24 06:00 ABG pO2 53.3 mmhg (80-100) L 02/13/24 06:00 ABG O2 Saturation 89 % (90-100) L 02/13/24 06:00 PT/INR, D-dimer PT 12.3 seconds (10.1-12.5) 02/12/24 18:35 INR 1.11 (0.9-1.1) H 02/12/24 18:35 Abnormal lab findings: Abnormal Labs 02/12/24 02/12/24 02/12/24 18:35 19:02 21:45 WBC RBC 3.57 L Hgb 10.6 L Hct 36.4 L MCV 102.0 H MCHC 29.1 L Neut % (Auto) 83.1 H Lymph % (Auto) 9.6 L Jefferson % (Auto) Eos % (Auto) 0.0 L Neut # (Auto) 8.8 H Jefferson # (Auto) INR 1.11 H ABG pH ABG pCO2 ABG pO2 ABG HCO3 ABG Total CO2 ABG O2 Saturation ABG Base Excess VBG pH 7.26 L VBG pCO2 78.8 H VBG pO2 73.1 H VBG HCO3 34.9 H VBG Total CO2 37.3 H VBG O2 Saturation 94.1 H VBG Base Excess 7.9 H VBG Lactic Acid Chloride 93 L Carbon Dioxide 42 H* BUN 25 H Glucose 160 H Magnesium AST Troponin I 0.13 H 0.13 H NT-Pro-B Natriuret Pep Total Protein Albumin 3.2 L Globulin 3.3 H Albumin/Globulin Ratio 1.0 L Cholesterol LDL Cholesterol Direct HDL Cholesterol Cholesterol/HDL Ratio TSH 0.34 L 02/13/24 02/13/24 02/13/24 01:15 02:00 06:00 WBC RBC Hgb Hct MCV MCHC Neut % (Auto) Lymph % (Auto) Jefferson % (Auto) Eos % (Auto) Neut # (Auto) Jefferson # (Auto) INR ABG pH 7.32 L ABG pCO2 86.5 H 73.6 H ABG pO2 53.3 L ABG HCO3 43.4 H 43.3 H ABG Total CO2 46.0 H 45.5 H ABG O2 Saturation 89 L ABG Base Excess 17.2 H 18.2 H VBG pH VBG pCO2 VBG pO2 VBG HCO3 VBG Total CO2 VBG O2 Saturation VBG Base Excess VBG Lactic Acid Chloride Carbon Dioxide BUN Glucose Magnesium AST Troponin I 0.12 H NT-Pro-B Natriuret Pep Total Protein Albumin Globulin Albumin/Globulin Ratio Cholesterol LDL Cholesterol Direct HDL Cholesterol Cholesterol/HDL Ratio [facility] 02/13/24 02/13/24 02/14/24 06:44 15:22 06:49 WBC RBC 3.22 L 3.69 L Hgb 9.6 L 10.8 L Hct 32.6 L 36.6 L MCV 101.2 H 99.2 H MCHC 29.4 L 29.5 L Neut % (Auto) Lymph % (Auto) Jefferson % (Auto) 10.2 H Eos % (Auto) 0.0 L Neut # (Auto) Jefferson # (Auto) INR ABG pH ABG pCO2 ABG pO2 ABG HCO3 ABG Total CO2 ABG O2 Saturation ABG Base Excess VBG pH 7.55 H VBG pCO2 66.7 H VBG pO2 137.3 H VBG HCO3 40.0 H 37.5 H VBG Total CO2 42.1 H 38.8 H VBG O2 Saturation 73.9 H 99.1 H VBG Base Excess 15.2 H 15.0 H VBG Lactic Acid Chloride 96 L 93 L Carbon Dioxide 39 H 40 H BUN 26 H 33 H D Glucose 149 H 105 H Magnesium 2.5 H D AST Troponin I NT-Pro-B Natriuret Pep Total Protein 5.4 L Albumin 2.9 L Globulin Albumin/Globulin Ratio Cholesterol LDL Cholesterol Direct HDL Cholesterol Cholesterol/HDL Ratio TSH 02/14/24 02/15/24 02/15/24 13:55 06:00 06:35 WBC 11.0 H RBC 3.97 L Hgb 11.6 L Hct MCV 100.0 H MCHC 29.2 L Neut % (Auto) Lymph % (Auto) Jefferson % (Auto) 9.6 H Eos % (Auto) Neut # (Auto) Jefferson # (Auto) 1.1 H INR ABG pH ABG pCO2 ABG pO2 ABG HCO3 ABG Total CO2 ABG O2 Saturation ABG Base Excess VBG pH VBG pCO2 VBG pO2 142.4 H VBG HCO3 VBG Total CO2 28.1 H VBG O2 Saturation 98.9 H VBG Base Excess VBG Lactic Acid 3.1 H Chloride 95 L Carbon Dioxide 39 H BUN 30 H Glucose 103 H Magnesium AST 40 H D Troponin I 0.07 H NT-Pro-B Natriuret Pep Total Protein 5.6 L Albumin 2.9 L Globulin Albumin/Globulin Ratio Cholesterol LDL Cholesterol Direct HDL Cholesterol Cholesterol/HDL Ratio TSH 02/15/24 07:30 WBC RBC Hgb Hct MCV MCHC Neut % (Auto) Lymph % (Auto) Jefferson % (Auto) Eos % (Auto) Neut # (Auto) Jefferson # (Auto) INR ABG pH ABG pCO2 ABG pO2 ABG HCO3 ABG Total CO2 ABG O2 Saturation ABG Base Excess VBG pH VBG pCO2 VBG pO2 VBG HCO3 VBG Total CO2 VBG O2 Saturation VBG Base Excess VBG Lactic Acid Chloride Carbon Dioxide BUN Glucose Magnesium AST Troponin I NT-Pro-B Natriuret Pep 1300 H Total Protein Albumin Globulin Albumin/Globulin Ratio Cholesterol 128 L LDL Cholesterol Direct 71.01 L HDL Cholesterol 31 L Cholesterol/HDL Ratio 4.1 H TSH Assessment and Plan *Assessment and plan (1) COPD exacerbation: Status: Acute Category: Medical Code(s): J44.1 - Chronic obstructive pulmonary disease with (acute) exacerbation (2) Pneumonia: Status: Acute Qualifiers: Pneumonia type: due to unspecified organism Laterality: right Lung location: unspecified part of lung Qualified Code(s): J18.9 - Pneumonia, unspecified organism Category: Medical Code(s): J18.9 - Pneumonia, unspecified organism (3) Respiratory failure with hypoxia and hypercapnia: Status: Acute Qualifiers: Chronicity: acute on chronic Qualified Code(s): J96.21 - Acute and chronic respiratory failure with hypoxia; J96.22 - Acute and chronic respiratory failure with hypercapnia Category: Medical Code(s): J96.91 - Respiratory failure, unspecified with hypoxia; J96.92 - Respiratory failure, unspecified with hypercapnia Plan Ms. Garcia is a 78-year-old female with reported history of COPD, chronic hypoxic respiratory failure pulmonary embolism presented to the ER with worsening respiratory distress and pulmonary was called for further evaluation and management. Venous blood gas upon admission severe hypercarbic respiratory failure with a pH of 7.26 and pCO2 78.8, improved. Repeat blood gas from yesterday morning and this morning did not show any evidence of hypercarbic respiratory failure. CTA upon admission no evidence of pulmonary embolism. Narrowing at the bifurcation of right mainstem bronchus. Minimal consolidative changes predominantly in the right upper lobe. Enlarged pulmonary artery. COVID-19 and flu PCR panel negative. Mild neutrophilic predominant leukocytosis. Patient has been receiving nebbulation therapies antibiotics and steroids. Patient on exam and appeared to be in moderate respiratory distress. Alert and oriented x 3. Saturating 100% on 3 L nasal cannula. Weaned to room air with desaturation to 84%. Now on 1 L nasal cannula. No significant wheezing noted on auscultation. Plan: Continue Trelegy 100 inhaler along with DuoNebs 4 times daily as needed Continue prednisone 40 mg daily to complete a total of 5-day course Wean antibiotics cefdinir to complete a total of 5-day course upon discharge. Incentive spirometry and flutter valve # Thank you for involving pulmonary in this patient care. Will follow patient in pulmonary clinic in 1 to 2 weeks post discharge
[2024-02-15 11:21] LABS: POC Glucose,Bedside 214 (70-110)
[2024-02-15 11:21] LABS: POC Glucose,Bedside 109 (70-110)
[2024-02-15 11:21] LABS: POC Glucose,Bedside 112 (70-110)
[2024-02-15 11:24] LABS: Reflex Lactic Add Lactic Reflex
[2024-02-15 12:04] LABS: Lactic Acid Follow Up (RFLX 1) 1.6 mmol/L (0.7-2.1)
[2024-02-15] MEDS: BUMETANIDE 1MG/4ML VIAL 2 MG IV (12:47)
[2024-02-15] MEDS: POLYETHYLENE GLYCOL 3350 17 GM PACKET PO (12:48)
[2024-02-15] MEDS: SENNOSIDES 8.6MG/DOCUSATE 50MG TABLET 1 TAB PO (12:48)
--- NOTE | 2024-02-15 13:00 | P.DS_ITS ---
General Admission date:: 02/12/24 Discharge date: 02/15/24 HPI HPI HPI: This is a 78-year-old female who has a past medical history significant for home O2 dependency, COPD, hypertension, pulmonary embolism, lung nodule, obesity, tremors, and multiple falls who presents with a chief complaint of dyspnea, productive cough, falls, confusion, and shortness of breath. Due to patient's symptoms, she presented to the emergency room for evaluation. While in emergency room, patient did have an elevated pCO2 and CTA of the chest revealed consolidation in the posterior right upper lobe, bilateral areas of atelectasis, no pulmonary embolism, prominent central pulmonary artery suggesting pulmonary artery hypertension, cardiomegaly, and moderate coronary artery calcifications. Patient is requiring the BiPAP, so she has been admitted for further management. During my evaluation of the patient, patient was alert and oriented to self and situation but not to place. She states that she has been having shortness of breath over the past 2 days with a productive cough. Patient did produce some sputum while I was in the room and it was tenacious and green. 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 Pelvis plain films were without any acute findings. CT scan of the head was also without any acute findings. Patient is currently denying any chest pain, lightheadedness, dizziness, headache, fever, chills, rigors, nausea, vomiting, or diarrhea. Additional pertinent values obtained include a red blood cell count of 3.57, hemoglobin of 10.6, hematocrit 36.4, neutrophils 83.1%, INR of 1.11, pH is 7.26, pCO2 of 78.8, pO2 of 73.1, pCO2 of 34.9 chloride of 93, BUN of 25, blood glucose of 160, troponin of 0.13, and albumin of 3.2. Hospital Course Hospital Course Hospital Course: Patito Garcia is a 78-year-old female with a medical history significant for COPD on home O2, hypertension, pulmonary embolism, hypertension, dementia, anxiety/depression, hypothyroidism who presents with shortness of breath, confusion, falls and admitted for acute metabolic encephalopathy, acute on chronic hypercapnic respiratory failure, COPD exacerbation, community-acquired pneumonia. Patient showed improvement. Improved to 3 L nasal cannula which is essentially her baseline. Patient stable to go home with home health. Problems addressed as follows: #Acute metabolic encephalopathy, resolved #Acute on chronic hypoxic, hypercapnic respiratory failure #Acute COPD exacerbation #Community-acquired pneumonia ? Initial VBG pH 7.26, pCO2 78.8. Placed on BiPAP with slow improvement. Gradually weaned to 2 L nasal cannula oxygen. CT showed right upper lobe pneumonia. Initiated on antibiotics with ceftriaxone and azithromycin. Started on Trelegy inhaler and DuoNebs every 6 hours. Pulmonology consulted and assiste d with care. Given her improvement, transition to oral and ask with cefdinir 300 mg twice daily to complete 5 days of antibiotics total. Will complete 5 days of steroids. Follow-up with pulmonology as an outpatient. Stable to discharge home on baseline oxygen. #NSTEMI, likely type II ? Troponin peaked to 0.13, down to 0.07. EKG without acute ischemic findings. ECHO without wall motion abnormalities, but does show increased LV wall thickness. Cardiology was consulted. Follow-up as an outpatient. No intervention planned during this admission. A1c obtained 5.1, no diabetes. Continue amlodipine 5 mg daily, atenolol 25 mg, Lipitor 40 mg nightly. #Falls at home #Physical deconditioning - PT/OT consulted, recommended SNF placement. Patient not interested in placement. Would like to go home instead. Will discharge home with home health. #Chronic pulmonary embolism: Continue home Eliquis 5 mg twice daily. #Hypertension: Continue home Entresto. #Dementia: Continue home donepezil. #Anxiety/depression: Continue home buspirone, duloxetine. #Hypothyroidism: Continue home levothyroxine 125 mcg. TSH low during admission but this is during an acute illness. Will retest when patient is more stable, and in outpatient setting. Exam Data for Last 24 hours Vital signs and Labs for Last 24 Hours: Temp Pulse Resp BP Pulse Ox O2 Del Method O2 Flow Rate 98 F 60 16 110/51 L 93 L Nasal Cannula 1 02/15/24 11:56 02/15/24 12:00 02/15/24 11:56 02/15/24 11:56 02/15/24 11:56 02/15/24 11:10 02/15/24 11:10 FiO2 40 02/14/24 02:10 Laboratory Results - last 24 hr 02/14/24 06:49: Hemoglobin A1c 5.1 02/14/24 13:55: Troponin I 0.07 H 02/14/24 20:17: POC Glucose 214 H 02/15/24 05:51: POC Glucose 112 H 02/15/24 06:00: VBG pH 7.41, VBG pCO2 43.5, VBG pO2 142.4 H, VBG HCO3 26.8, VBG Total CO2 28.1 H, VBG O2 Saturation 98.9 H, VBG Base Excess 2.1, VBG Lactic Acid 3.1 H 02/15/24 06:35: WBC 11.0 H, RBC 3.97 L, Hgb 11.6 L, Hct 39.7, MCV 100.0 H, MCH 29.2, MCHC 29.2 L, RDW 14.1, Plt Count 207, MPV 10.3, Neut % (Auto) 61.0, Lymph % (Auto) 26.7, [place] % (Auto) 9.6 H, Eos % (Auto) 0.1, Baso % (Auto) 0.6, Neut # (Auto) 6.7, Lymph # (Auto) 2.9, [place] # (Auto) 1.1 H, Eos # (Auto) 0.0, Baso # (Auto) 0.1, Sodium 139, Potassium 4.3, Chloride 95 L, Carbon Dioxide 39 H, Anion Gap 9.3, BUN 30 H, Creatinine 0.70, Estimated Creat Clear 36, Estimated GFR 81, Est GFR ( Amer) 98, Glucose 103 H, Calcium 8.5, Magnesium 2.3, Total Bilirubin 0.4, AST 40 H D, ALT 15, Alkaline Phosphatase 67, Total Protein 5.6 L, Albumin 2.9 L, Globulin 2.7, Albumin/Globulin Ratio 1.1 02/15/24 07:30: NT-Pro-B Natriuret Pep 1300 H, Triglycerides 98, Cholesterol 128 L, LDL Cholesterol Direct 71.01 L, VLDL Cholesterol 20, HDL Cholesterol 31 L, Cholesterol/HDL Ratio 4.1 H 02/15/24 10:54: POC Glucose 109 02/15/24 11:45: Lactate 1.6 I & O for Last 24 hours: Intake & Output 02/12/24 02/13/24 02/14/24 02/15/24 23:59 23:59 23:59 23:59 Intake Total 770 / 1000 1150 / 1440 560 / 560 Output Total 330 / 330 500 / 500 350 / 350 Balance 440 / 670 650 / 940 210 / 210 Weight 108.272 kg 108.272 kg 107.161 kg 110.042 kg Microbiology Reports for the Last 24 Hours: Microbiology 02/13/24 17:28 Sputum - Expectorated Sputum Gram Stain - Final 02/13/24 17:28 Sputum - Expectorated Sputum Sputum Culture - Preliminary Constitutional Constitutional: no acute distress, obese, chronically ill appearing and cooperative *Routine HEENT Exam Head: Present normocephalic Eye: Present EOMI and PERRL ENT: Present mucous membranes moist *Routine Neck Exam Neck: Present supple; Absent lymphadenopathy *Routine Respiratory Exam Respiratory: Present wheezes; Absent CTA bilaterally, rhonchi or crackles *Routine Cardiovascular Exam Cardiovascular: Present RRR *Routine Abdominal Exam Abdominal: Present soft and normoactive bowel sounds; Absent tenderness *Routine Rectal Exam Patient deferred: visual exam *Routine Exam Patient deferred: external exam *Routine Extremities Exam Extremities: Absent cyanosis, clubbing or edema *Routine Skin Exam Skin: Present intact and warm; Absent rash *Routine Neurological Exam Neurological: Present alert, oriented X3 and moving all extremities; Absent altered mental status Results Data Completed and Pending Labs on day of discharge: Labs from last 24 hours 02/15/24 02/15/24 02/15/24 11:45 10:54 07:30 WBC RBC Hgb Hct MCV MCH MCHC RDW Plt Count MPV Neut % (Auto) Lymph % (Auto) [place] % (Auto) Eos % (Auto) Baso % (Auto) Neut # (Auto) Lymph # (Auto) [place] # (Auto) Eos # (Auto) Baso # (Auto) VBG pH VBG pCO2 VBG pO2 VBG HCO3 VBG Total CO2 VBG O2 Saturation VBG Base Excess VBG Lactic Acid Sodium Potassium Chloride Carbon Dioxide Anion Gap BUN Creatinine Estimated Creat Clear Estimated GFR Est GFR ( Amer) Glucose POC Glucose 109 Hemoglobin A1c Lactate 1.6 Calcium Magnesium Total Bilirubin AST ALT Alkaline Phosphatase Troponin I NT-Pro-B Natriuret Pep 1300 H Total Protein Albumin Globulin Albumin/Globulin Ratio Triglycerides 98 Cholesterol 128 L LDL Cholesterol Direct 71.01 L VLDL Cholesterol 20 HDL Cholesterol 31 L Cholesterol/HDL Ratio 4.1 H 02/15/24 02/15/24 02/15/24 06:35 06:00 05:51 WBC 11.0 H RBC 3.97 L Hgb 11.6 L Hct 39.7 MCV 100.0 H MCH 29.2 MCHC 29.2 L RDW 14.1 Plt Count 207 MPV 10.3 Neut % (Auto) 61.0 Lymph % (Auto) 26.7 [place] % (Auto) 9.6 H Eos % (Auto) 0.1 Baso % (Auto) 0.6 Neut # (Auto) 6.7 Lymph # (Auto) 2.9 [place] # (Auto) 1.1 H Eos # (Auto) 0.0 Baso # (Auto) 0.1 VBG pH 7.41 VBG pCO2 43.5 VBG pO2 142.4 H VBG HCO3 26.8 VBG Total CO2 28.1 H VBG O2 Saturation 98.9 H VBG Base Excess 2.1 VBG Lactic Acid 3.1 H Sodium 139 Potassium 4.3 Chloride 95 L Carbon Dioxide 39 H Anion Gap 9.3 BUN 30 H Creatinine 0.70 Estimated Creat Clear 36 Estimated GFR 81 Est GFR ( Amer) 98 Glucose 103 H POC Glucose 112 H Hemoglobin A1c Lactate Calcium 8.5 Magnesium 2.3 Total Bilirubin 0.4 AST 40 H D ALT 15 Alkaline Phosphatase 67 Troponin I NT-Pro-B Natriuret Pep Total Protein 5.6 L Albumin 2.9 L Globulin 2.7 Albumin/Globulin Ratio 1.1 Triglycerides Cholesterol LDL Cholesterol Direct VLDL Cholesterol HDL Cholesterol Cholesterol/HDL Ratio 02/14/24 02/14/24 02/14/24 20:17 13:55 06:49 WBC RBC Hgb Hct MCV MCH MCHC RDW Plt Count MPV Neut % (Auto) Lymph % (Auto) [place] % (Auto) Eos % (Auto) Baso % (Auto) Neut # (Auto) Lymph # (Auto) [place] # (Auto) Eos # (Auto) Baso # (Auto) VBG pH VBG pCO2 VBG pO2 VBG HCO3 VBG Total CO2 VBG O2 Saturation VBG Base Excess VBG Lactic Acid Sodium Potassium Chloride Carbon Dioxide Anion Gap BUN Creatinine Estimated Creat Clear Estimated GFR Est GFR ( Amer) Glucose POC Glucose 214 H Hemoglobin A1c 5.1 Lactate Calcium Magnesium Total Bilirubin AST ALT Alkaline Phosphatase Troponin I 0.07 H NT-Pro-B Natriuret Pep Total Protein Albumin Globulin Albumin/Globulin Ratio Triglycerides Cholesterol LDL Cholesterol Direct VLDL Cholesterol HDL Cholesterol Cholesterol/HDL Ratio Preliminary micro results at discharge 02/13/24 17:28 Sputum Culture - Preliminary Sputum - Expectorated Sputum DS: Diagnosis Discharge Diagnosis (1) COPD exacerbation: Status: Acute Code(s): J44.1 - Chronic obstructive pulmonary disease with (acute) exacerbation (2) Pneumonia: Status: Acute Code(s): J18.9 - Pneumonia, unspecified organism Qualifiers: Laterality: right Lung location: unspecified part of lung Pneumonia type: due to unspecified organism Qualified Code(s): J18.9 - Pneumonia, unspecified organism (3) Respiratory failure with hypoxia and hypercapnia: Status: Acute Code(s): J96.91 - Respiratory failure, unspecified with hypoxia; J96.92 - Respiratory failure, unspecified with hypercapnia Qualifiers: Chronicity: acute on chronic Qualified Code(s): J96.21 - Acute and chronic respiratory failure with hypoxia; J96.22 - Acute and chronic respiratory failure with hypercapnia Meds Home Medications and Allergies Home Medications ?Medication ?Instructions ?Recorded ?Confirmed ?Type amlodipine 5 mg tablet 5 mg PO DAILY 03/12/23 02/13/24 History atenolol 25 mg tablet 25 mg PO DAILY 03/12/23 02/13/24 History donepezil 10 mg tablet 10 mg PO DAILY 03/12/23 02/13/24 History duloxetine 60 mg capsule,delayed 60 mg PO DAILY 03/12/23 02/13/24 History release hydroxyzine HCl 25 mg tablet 25 mg PO Q8HP PRN Anxiety 03/12/23 02/13/24 History levothyroxine 125 mcg tablet 125 mcg PO DAILYDM 03/12/23 02/13/24 History trazodone 150 mg tablet 150 mg PO HS 03/12/23 02/13/24 History albuterol sulfate 2.5 mg/3 mL 2.5 mg inhalation Q4HP PRN 10/14/23 02/13/24 History (0.083 %) solution for nebulization Shortness Of Breath Or Wheezing famotidine 40 mg tablet 40 mg PO DAILY 10/14/23 02/13/24 History memantine 5 mg tablet 5 mg PO BID 10/14/23 02/13/24 History sacubitril 49 mg-valsartan 51 mg 1 tab PO BID 10/14/23 02/13/24 History tablet (Entresto) apixaban 5 mg tablet (Eliquis) 5 mg PO BID #180 tabs 11/08/23 02/13/24 Rx alendronate 70 mg tablet 70 mg PO WEEKLY 02/12/24 02/13/24 History buspirone 30 mg tablet 30 mg PO BID 02/12/24 02/13/24 History guaifenesin 600 mg tablet, 1,200 mg PO BID 02/12/24 02/13/24 History extended release 12 hr albuterol sulfate 90 mcg/actuation 2 puff inhalation Q4HP PRN 02/13/24 02/13/24 History aerosol inhaler (Ventolin HFA) shortness of breath or wheezing budesonide-formoterol HFA 160 2 inh inhalation BIDRT 02/13/24 02/13/24 History mcg-4.5 mcg/actuation aerosol inhaler (Breyna) atorvastatin 40 mg tablet 40 mg PO HS 30 days #30 tabs 02/15/24 Rx cefdinir 300 mg capsule 300 mg PO BID 2 days #4 caps 02/15/24 Rx fluticasone fur. 100 mcg-umeclid 1 inh inhalation DAILY 30 days #60 02/15/24 Rx 62.5 mcg-vilant 25 mcg ea inhalat.powder (Trelegy Ellipta) prednisone 20 mg tablet 40 mg (2 x 20 mg) PO DAILY 2 days 02/15/24 Rx #4 tabs New Prescriptions to Start Prescriptions: Robert Garcia cefdinir Robert Gan [id number] [Trelegy Ellipta] Robert Gan prednisone Robert Gan Allergies Allergy/AdvReac Type Severity Reaction Status Date / Time sulfamethoxazole (From AdvReac Mild Nausea Verified 11/08/23 15:49 Bactrim) trimethoprim (From Bactrim) AdvReac Mild Nausea Verified 11/08/23 15:49 Discharge Plan Disposition Patient Disposition: Home Health Service Condition: Fair Discharge Order Discharge Orders: Discharge Order (Routine); Ordered 02/15/24 Ordered By: Robert Gan Follow up Plan Follow up with: Lulú Mendez APRN [Nurse Practitioner] - 02/28/24 2:15 pm Earl Dumont [Primary Care Provider] - 02/23/24 12:00 pm Laxmi Slaughter MD [Physician] - 03/02/24 1:00 pm Prescriptions/Medication Reconciliation: New atorvastatin 40 mg Tablet 40 mg PO HS 30 Days Qty: 30 0RF Trelegy Ellipta 100-62.5-25 mcg Blister With Device 1 inh inhalation DAILY 30 Days Qty: 60 0RF cefdinir 300 mg capsule 300 mg PO BID 2 Days Qty: 4 0RF prednisone 20 mg tablet 40 mg PO DAILY 2 Days Qty: 4 0RF Continued Eliquis 5 mg tablet 5 mg PO BID Qty: 180 2RF donepezil 10 mg tablet 10 mg PO DAILY Patient Comments: TAKE 1 TABLET BY MOUTH DAILY atenolol 25 mg tablet 25 mg PO DAILY Patient Comments: TAKE 1 TABLET BY MOUTH DAILY amlodipine 5 mg tablet 5 mg PO DAILY trazodone 150 mg tablet 150 mg PO HS levothyroxine 125 mcg tablet 125 mcg PO DAILYDM hydroxyzine HCl 25 mg tablet 25 mg PO Q8HP PRN (Reason: Anxiety) duloxetine 60 mg capsule,delayed release(DR/EC) 60 mg PO DAILY Patient Comments: TAKE 1 CAPSULE BY MOUTH DAILY sacubitril-valsartan [Entresto] 49-51 mg tablet 1 tab PO BID Patient Comments: TAKE 1 TABLET BY MOUTH TWICE DAILY albuterol sulfate 2.5 mg /3 mL (0.083 %) solution for nebulization 2.5 mg inhalation Q4HP PRN (Reason: Shortness Of Breath Or Wheezing) Patient Comments: INHALE CONTENTS OF 1 VIAL VIA NEBULIZER EVERY 4 HOURS NEEDED FOR WEEZING famotidine 40 mg tablet 40 mg PO DAILY Patient Comments: TAKE 1 TABLET BY MOUTH DAILY memantine 5 mg tablet 5 mg PO BID alendronate 70 mg tablet 70 mg PO WEEKLY buspirone 30 mg tablet 30 mg PO BID guaifenesin 600 mg tablet extended release 12hr 1,200 mg PO BID budesonide-formoterol [Breyna] 160-4.5 mcg/actuation HFA aerosol inhaler 2 inh INHALATION BIDRT Patient Comments: INHALE 2 PUFFS BY MOUTH TWICE DAILY albuterol sulfate [Ventolin HFA] 90 mcg/actuation HFA aerosol inhaler 2 puff inhalation Q4HP PRN (Reason: shortness of breath or wheezing) Discontinued pravastatin 20 mg tablet 20 mg PO HS Patient Comments: TAKE 1 TABLET BY MOUTH EVERY EVENING doxycycline hyclate 100 mg capsule 100 mg PO BID Qty: 14 0RF Rx Instructions: FOR 10 DAYS, FILLED 02/10/24 prednisone 20 mg tablet 20 mg PO DAILY Problem Reconciliation Problems Reviewed?: Yes Patient Discharge Instructions ACTIVITY: Continue current activity DIET: continue same diet Patient Instructions: DI for Pneumonia -- Adult, DI for Respiratory Failure, DI for Altered Mental Status Print Language: Hungarian Providers Primary Care Provider: Earl Dumont Admit Provider: Bertin Key Attending Provider: Bertin Key
--- NOTE | 2024-02-15 13:22 | P.CONCA_ITS ---
History of Present Illness History of Present Illness Consult date: 02/15/24 Requesting physician: Robert Gan Consult reason: shortness of breath Chief complaint: SOA History of present illness: This is a 78-year-old white female who presented to the hospital with shortness of breath. She has a past medical history of COPD on home oxygen, hypertension, PE, obesity and multiple falls. The patient states that she has been having shortness of breath with a productive cough for approximately a week. She states that she was also having some confusion and falls at home. She states that her shortness of breath was progressively worsening and then got severe. She states that that is why she decided to come to the emergency department because her shortness of breath was so severe. At the time of admission the patient was requiring BiPAP. She was diagnosed with pneumonia and subsequently admitted to the hospital. She denies any chest pain or pressure. She states that her shortness of breath has significantly improved and she is feeling much better now. She denies any lower extremity edema. She denies any fever, chills, nausea, vomiting, diarrhea, PND or orthopnea. [facility] Disclaimer: The information contained in this section may have been updated after the patient was seen, as this information can be updated by other users. Medical History Elevated troponin Hyperlipidemia (HFpEF) heart failure with preserved ejection fraction CAD (coronary artery disease) HTN (hypertension) Heart failure Chronic respiratory failure with hypoxia History of COPD Second hand smoke exposure Surgical History History of left knee replacement Family History Other No significant family history Social History Smoking Status: Never smoker alcohol intake: never current occupational status: retired Travel in the last 8 weeks: None Review of Systems Review of Systems Review of systems:: pertinent systems reviewed and negative unless documented below Constitutional Constitutional: Reports system reviewed and no additional complaints, except as documented, Reports fatigue and Reports lethargy Eyes Eyes: Reports system reviewed and no additional complaints, except as documented ENT Ears, Nose, Mouth, and Throat: Reports system reviewed and no additional complaints, except as documented *Cardiovascular Cardiovascular: Reports system reviewed and no additional complaints, except as documented, Denies chest pain, Reports dyspnea and Reports dyspnea on exertion *Respiratory Respiratory: Reports system reviewed and no additional complaints, except as documented, Reports chest congestion, Reports cough, Reports dyspnea, Reports dyspnea on exertion and Reports excessive phlegm production *Gastrointestinal Gastrointestinal: Reports system reviewed and no additional complaints, except as documented *Genitourinary Genitourinary: Reports system reviewed and no additional complaints, except as documented *Musculoskeletal Musculoskeletal: Reports system reviewed and no additional complaints, except as documented Integumentary/Breasts Skin/Breast: Reports system reviewed and no additional complaints, except as documented *Neurologic Neurologic: Reports confusion Psychiatric Psychiatric: Reports confusion Endocrine Endocrine: Reports system reviewed and no additional complaints, except as documented and Reports fatigue Hematologic/Lymphatic Hematologic/Lymphatic: Reports system reviewed and no additional complaints, except as documented Allergic/Immunologic Allergic/Immunologic: Reports system reviewed and no additional complaints, except as documented Exam Data for Last 24 hours Vital signs and Labs for Last 24 Hours: Temp Pulse Resp BP Pulse Ox O2 Del Method O2 Flow Rate 98 F 60 16 110/51 L 93 L Nasal Cannula 1 02/15/24 11:56 02/15/24 12:00 02/15/24 11:56 02/15/24 11:56 02/15/24 11:56 02/15/24 11:10 02/15/24 11:10 FiO2 40 02/14/24 02:10 Laboratory Results - last 24 hr 02/14/24 06:49: Hemoglobin A1c 5.1 02/14/24 13:55: Troponin I 0.07 H 02/14/24 20:17: POC Glucose 214 H 02/15/24 05:51: POC Glucose 112 H 02/15/24 06:00: VBG pH 7.41, VBG pCO2 43.5, VBG pO2 142.4 H, VBG HCO3 26.8, VBG Total CO2 28.1 H, VBG O2 Saturation 98.9 H, VBG Base Excess 2.1, VBG Lactic Acid 3.1 H 02/15/24 06:35: WBC 11.0 H, RBC 3.97 L, Hgb 11.6 L, Hct 39.7, MCV 100.0 H, MCH 29.2, MCHC 29.2 L, RDW 14.1, Plt Count 207, MPV 10.3, Neut % (Auto) 61.0, Lymph % (Auto) 26.7, [place] % (Auto) 9.6 H, Eos % (Auto) 0.1, Baso % (Auto) 0.6, Neut # (Auto) 6.7, Lymph # (Auto) 2.9, [place] # (Auto) 1.1 H, Eos # (Auto) 0.0, Baso # (Auto) 0.1, Sodium 139, Potassium 4.3, Chloride 95 L, Carbon Dioxide 39 H, Anion Gap 9.3, BUN 30 H, Creatinine 0.70, Estimated Creat Clear 36, Estimated GFR 81, Est GFR ( Amer) 98, Glucose 103 H, Calcium 8.5, Magnesium 2.3, Total Bilirubin 0.4, AST 40 H D, ALT 15, Alkaline Phosphatase 67, Total Protein 5.6 L, Albumin 2.9 L, Globulin 2.7, Albumin/Globulin Ratio 1.1 02/15/24 07:30: NT-Pro-B Natriuret Pep 1300 H, Triglycerides 98, Cholesterol 128 L, LDL Cholesterol Direct 71.01 L, VLDL Cholesterol 20, HDL Cholesterol 31 L, Cholesterol/HDL Ratio 4.1 H 02/15/24 10:54: POC Glucose 109 02/15/24 11:45: Lactate 1.6 I & O for Last 24 hours: Intake & Output 02/12/24 02/13/24 02/14/24 02/15/24 23:59 23:59 23:59 23:59 Intake Total 770 / 1000 1150 / 1440 560 / 560 Output Total 330 / 330 500 / 500 350 / 350 Balance 440 / 670 650 / 940 210 / 210 Weight 238 lb 11.2 oz 238 lb 11.2 oz 236 lb 4 oz 242 lb 9.6 oz Microbiology Reports for the Last 24 Hours: Microbiology 02/13/24 17:28 Sputum - Expectorated Sputum Gram Stain - Final 02/13/24 17:28 Sputum - Expectorated Sputum Sputum Culture - Preliminary Constitutional Constitutional: no acute distress and morbidly obese *Routine HEENT Exam Head: Present normocephalic and atraumatic ENT: Present mucous membranes moist *Routine Neck Exam Neck: Present supple, full ROM and normal carotid upstroke; Absent JVD, carotid bruit or lymphadenopathy *Routine Respiratory Exam Respiratory: Present CTA bilaterally, normal respiratory effort, able to speak in complete sentences and symmetric chest movement *Routine Cardiovascular Exam Cardiovascular: Present RRR, Normal S1 and Normal S2; Absent murmur or gallop *Routine Abdominal Exam Abdominal: Present soft and normoactive bowel sounds; Absent tenderness, distended or organomegaly *Routine Extremities Exam Extremities: Present full ROM, pulses intact and normal capillary refill; Absent cyanosis, clubbing or edema *Routine Skin Exam Skin: Present intact and warm; Absent erythema *Routine Neurological Exam Neurological: Present alert, oriented X3 and CN II-XII intact; Absent sensory deficit or motor deficit Routine Psychiatric Exam Psychiatric: Present normal affect Meds Home Medications and Allergies Home Medications ?Medication ?Instructions ?Recorded ?Confirmed ?Type amlodipine 5 mg tablet 5 mg PO DAILY 03/12/23 02/13/24 History atenolol 25 mg tablet 25 mg PO DAILY 03/12/23 02/13/24 History donepezil 10 mg tablet 10 mg PO DAILY 03/12/23 02/13/24 History duloxetine 60 mg capsule,delayed 60 mg PO DAILY 03/12/23 02/13/24 History release hydroxyzine HCl 25 mg tablet 25 mg PO Q8HP PRN Anxiety 03/12/23 02/13/24 History levothyroxine 125 mcg tablet 125 mcg PO DAILYDM 03/12/23 02/13/24 History trazodone 150 mg tablet 150 mg PO HS 03/12/23 02/13/24 History albuterol sulfate 2.5 mg/3 mL 2.5 mg inhalation Q4HP PRN 10/14/23 02/13/24 History (0.083 %) solution for nebulization Shortness Of Breath Or Wheezing famotidine 40 mg tablet 40 mg PO DAILY 10/14/23 02/13/24 History memantine 5 mg tablet 5 mg PO BID 10/14/23 02/13/24 History sacubitril 49 mg-valsartan 51 mg 1 tab PO BID 10/14/23 02/13/24 History tablet (Entresto) apixaban 5 mg tablet (Eliquis) 5 mg PO BID #180 tabs 11/08/23 02/13/24 Rx alendronate 70 mg tablet 70 mg PO WEEKLY 02/12/24 02/13/24 History buspirone 30 mg tablet 30 mg PO BID 02/12/24 02/13/24 History guaifenesin 600 mg tablet, 1,200 mg PO BID 02/12/24 02/13/24 History extended release 12 hr albuterol sulfate 90 mcg/actuation 2 puff inhalation Q4HP PRN 02/13/24 02/13/24 History aerosol inhaler (Ventolin HFA) shortness of breath or wheezing budesonide-formoterol HFA 160 2 inh inhalation BIDRT 02/13/24 02/13/24 History mcg-4.5 mcg/actuation aerosol inhaler (Breyna) atorvastatin 40 mg tablet 40 mg PO HS 30 days #30 tabs 02/15/24 Rx cefdinir 300 mg capsule 300 mg PO BID 2 days #4 caps 02/15/24 Rx fluticasone fur. 100 mcg-umeclid 1 inh inhalation DAILY 30 days #60 02/15/24 Rx 62.5 mcg-vilant 25 mcg ea inhalat.powder (Trelegy Ellipta) prednisone 20 mg tablet 40 mg (2 x 20 mg) PO DAILY 2 days 02/15/24 Rx #4 tabs New Prescriptions to Start Prescriptions: Robert Garcia cefdinir Robert Gan [id number] [Trelegy Ellipta] Robert Gan prednisone Robert Gan Allergies Allergy/AdvReac Type Severity Reaction Status Date / Time sulfamethoxazole (From AdvReac Mild Nausea Verified 11/08/23 15:49 Bactrim) trimethoprim (From Bactrim) AdvReac Mild Nausea Verified 11/08/23 15:49 Assessment and Plan *Assessment and plan (1) Elevated troponin: Status: Acute Category: Medical Code(s): R79.89 - Other specified abnormal findings of blood chemistry (2) (HFpEF) heart failure with preserved ejection fraction: Status: Acute Qualifiers: Heart failure chronicity: acute on chronic Qualified Code(s): I50.33 - Acute on chronic diastolic (congestive) heart failure Category: Medical Code(s): I50.30 - Unspecified diastolic (congestive) heart failure (3) CAD (coronary artery disease): Status: Acute Qualifiers: Coronary Disease-Associated Artery/Lesion type: [place] artery [place] vs. transplanted heart: [place] heart Associated angina: without angina Qualified Code(s): I25.10 - Atherosclerotic heart disease of [place] coronary artery without angina pectoris Category: Medical Code(s): I25.10 - Atherosclerotic heart disease of [place] coronary artery without angina pectoris (4) Bilateral pulmonary embolism: Status: Acute Category: Medical Code(s): I26.99 - Other pulmonary embolism without acute cor pulmonale (5) HTN (hypertension): Status: Acute Qualifiers: Hypertension type: primary hypertension Qualified Code(s): I10 - Essential (primary) hypertension Category: Medical Code(s): I10 - Essential (primary) hypertension (6) Hyperlipidemia: Status: Acute Qualifiers: Hyperlipidemia type: mixed hyperlipidemia Qualified Code(s): E78.2 - Mixed hyperlipidemia Category: Medical Code(s): E78.5 - Hyperlipidemia, unspecified Plan Plan: 1. The patient is admitted to the hospital with community-acquired pneumonia. She is getting IV antibiotics. Will defer management of this to the hospitalist and pulmonology. 2. The patient did have an elevated troponin consistent with a non-STEMI. This is most likely a type II non-STEMI from her COPD and pneumonia. Once she has recovered from her pneumonia and COPD exacerbation we do recommend an outpatient ischemic evaluation. She did have a CT chest which shows moderate coronary calcifications. 3. Recommend aspirin 81 mg daily. 4. Continue atenolol. 5. Her blood pressure is well-controlled. 6. Her LDL goal is less than 55. Her LDL is 71. Continue her statin. 7. The patient does have a history of PEs bilaterally. She will need to remain on Eliquis for anticoagulation. 8. The patient does have an elevated BNP and did have an acute on chronic exacerbation of HFpEF. She has been diuresed with IV Bumex. We do recommend sending her home on Bumex 1 mg p.o. daily. 9. Start spironolactone 25 mg p.o. daily for HFpEF. 10. Continue atenolol and Entresto for HFpEF. 11. Echocardiogram shows a normal ejection fraction with LV wall thickness. She does have an elevated RVSP at 30 to 35 mmHg. On an outpatient basis the patient will need a cardiac MRI, PYP scan and amyloid labs. 12. The patient can be discharged home today from a cardiac standpoint with follow-up in cardiology clinic in 1 to 2 weeks. She will need outpatient ischemic evaluation as well as cardiac MRI PYP and amyloid labs on an outpatient basis. 13. The patient can be discharged on the following cardiac medications: She on amlodipine 5 mg daily, Eliquis 5 mg p.o. twice daily, aspirin 81 mg daily, atenolol 25 mg daily, Bumex 1 mg p.o. daily, atorvastatin 40 mg p.o. nightly, Entresto 49/51 mg twice daily, spironolactone 25 mg p.o. daily. Thank you for the opportunity to have participate in the care of this patient. All recommendations and orders are per Dr. Watson.
[2024-02-15] MEDS: FLUTICASONE/UMECLIDIN/VILANTER 100/62.5/25MCG INHALER 1 PUFF IH (14:29)
[2024-02-15] MEDS: CEFTRIAXONE SODIUM 1 GM in 0.9 % SODIUM CHLORIDE 50 ML IV (14:29)
--- NOTE | 2024-02-15 14:42 | PC.NURSE ---
I assumed care of this patient at 1379
[2024-02-15] MEDS: ACETAMINOPHEN 325MG TAB 650 MG PO (14:57)
[2024-02-16 07:09] LABS: HCV Ab Non Reactive (Non Reactive)
[2024-02-16 15:13] LABS: Calcium, Ionized 5.3 mg/dL (4.5-5.6)
--- NOTE | 2024-02-17 10:12 | SW/DCPLANNER ---
Phoned patient x2. Patients mailbox is full and cant accept any messages at this time. Marium Mathew
--- NOTE | 2024-02-17 13:03 | SW/DCPLANNER ---
Spoke with patient on the phone. Patient stated that she is doing well. Patient stated that she is aware of her upcoming appointments and that she was able to get her new prescriptions picked up at the clinic pharmacy. Patient stated that she has no concerns or questions at this time. Marium Mathew
== END 2024-02-15 15:36 | disposition home health service (06) | DRG 189 ==
LOC: ER 18:34 → 2ND 22:08
PROVIDERS: Nurse Practitioner Family; Admitting Provider Student in an Organized Health Care Education/Training Program; Emergency Provider Student in an Organized Health Care Education/Training Program; PCP Family Medicine; Visit Provider Student in an Organized Health Care Education/Training Program
DX: J96.22 Acute and chronic respiratory failure with hypercapnia (principal); G93.41 Metabolic encephalopathy; J18.9 Pneumonia, unspecified organism; I21.A1 Myocardial infarction type 2; J44.1 Chronic obstructive pulmonary disease with (acute) exacerbation; Z68.41 Body mass index [BMI] 40.0-44.9, adult; J96.21 Acute and chronic respiratory failure with hypoxia; E03.9 Hypothyroidism, unspecified; E66.9 Obesity, unspecified; F03.90 Unspecified dementia, unspecified severity, without behavioral disturbance, psychotic disturbance, mood disturbance, and anxiety; F32.A Depression, unspecified; I25.10 Atherosclerotic heart disease of native coronary artery without angina pectoris; F41.9 Anxiety disorder, unspecified; Z79.899 Other long term (current) drug therapy; Z79.890 Hormone replacement therapy; Z79.51 Long term (current) use of inhaled steroids; Z99.81 Dependence on supplemental oxygen; Z91.81 History of falling; Z79.01 Long term (current) use of anticoagulants; R29.6 Repeated falls
CPT/HCPCS: 36415; 70450; 71045; 71275; 72170; 73600; 73620; 80048; 80053; 80061; 80307; 80320; 81001; 82330; 82607; 82746; 82803; 82962; 83036; 83605; 83735; 83880; 84439; 84443; 84484; 85025; 85610; 85730; 86803; 87070; 87205; 87389; 87631; 93005; 93306; 94640; 94660; 94761; 97110; 97163; 97166; 97530; 99221; 99291; J0456; J0696; J1939; J2060; J2919; J3475; J7050; J7620; Q9967

== ENCOUNTER 2024-03-20 15:41 | Outpatient (CLI) | payer MEDICARE, SELFPAY ==
[2024-03-20 18:12] LABS: Total Protein,Serum 5.5 g/dl (6.3-8.2)
[2024-03-21 15:36] LABS: Albumin 2.9 g/dL (2.9-4.4); Alpha-1-Globulin 0.3 g/dL (0.0-0.4); Alpha-2-Globulin 0.6 g/dL (0.4-1.0); Gamma Globulin 0.8 g/dL (0.4-1.8); Protein, Total 5.6 g/dL (6.0-8.5)
[2024-03-21 18:13] LABS: Free Kappa Lt Chains 22.4 mg/L (3.3-19.4); Free Lambda Lt Chains 19.2 mg/L (5.7-26.3)
[2024-03-22 17:10] LABS: Albumin, U 18.4 % (.); Alpha-1-Globulin, U 5.9 % (.); Alpha-2-Globulin, U 19.2 % (.); Beta Globulin, U 31.9 % (.); Gamma Globulin, U 24.6 % (.); M-Spike, % Not Observed % (Not Observed); Protein,Total,Urine 18.4 mg/dL (Not Estab.)
[2024-03-23 14:18] LABS: Immunoglobulin A, Qn 268 mg/dL (64-422); Immunoglobulin G, Qn 809 mg/dL (586-1602); Immunoglobulin M, Qn 105 mg/dL (26-217)
[2024-03-24 08:45] LABS: PDF SCANNED IMAGE
[2024-03-24 08:48] LABS: PDF: SCANNED IMAGE
== END 2024-03-20 23:59 | disposition home or self-care (01) ==
LOC: LAB 15:44
PROVIDERS: PCP Family Medicine; Visit Provider Nurse Practitioner Family
DX: E78.2 Mixed hyperlipidemia (principal); I11.0 Hypertensive heart disease with heart failure; I50.33 Acute on chronic diastolic (congestive) heart failure; I25.10 Atherosclerotic heart disease of native coronary artery without angina pectoris; I34.0 Nonrheumatic mitral (valve) insufficiency; I26.99 Other pulmonary embolism without acute cor pulmonale; J96.21 Acute and chronic respiratory failure with hypoxia; E66.9 Obesity, unspecified; Z99.81 Dependence on supplemental oxygen; R93.1 Abnormal findings on diagnostic imaging of heart and coronary circulation; R79.89 Other specified abnormal findings of blood chemistry
CPT/HCPCS: 36415; 82784; 83883; 84155; 84156; 84165; 84166; 86334; 86335

== ENCOUNTER 2024-04-04 11:45 | Outpatient (CLI) | payer MEDICARE, SELFPAY ==
--- NOTE | 2024-04-04 | CA_ITS ---
APPROVED REPORT Exam: Pharmacologic Technologist: Sandy Quiroga Ht: 5 ft 3 in Wt: 235 lbs BSA: 2.07 m2 HR: 58 bpm BP: 153/53 mmHg Stress Test Details Test: Lexiscan HR Resting HR: 58 bpm Max Heart Rate (APMHR): 140 bpm Max HR Achieved: 72 bpm Target HR (85% APMHR): 119 bpm % of APMHR: 51 Recovery HR: 67 bpm BP Resting BP: 153.0/53.0 mmHg Max BP: 164.0/58.0 mmHg Recovery BP: 164.0/58.0 mmHg ECG Stress ECG Conclusion Symptoms: No chest pain Arrhythmias/Ectopy: None ST-T Changes: < 1.[address] segment changes. Conclusion: Non-diagnostic Lexiscan stress. Electronically signed by : Lexi Watson MD 04/05/2024 12:04:31
--- NOTE | 2024-04-04 11:54 | NM_ITS ---
APPROVED REPORT Exam: Nuclear Stress Test Indication: dizziness..fatigue..soa Patient Location: Outpatient Stress Tech: Sandy Quiroga NM Tech:Jessie Patricia, ARRT, RT (R)(N) Ht: 5 ft 3 in Wt: 235 lbs Bra Size: c HR: 58 bpm BP: 153/53 mmHg BSA: 2.07 m2 TID: 1.06 BMI: 41.6 History: dizziness..fatigue..soa Procedure: Patient received 0.4 mg of intravenous Lexiscan, resting heart rate 58 bpm, resting blood pressure 153/53 mmHg, with Lexiscan maximum heart rate achieved was 77 bpm which is 85 % of the maximum predicted heart rate and blood pressure was 164/58 mmHg. With Lexiscan, patient denied any complaint of chest pain. The patient was not able to lay the her belly for prone images. Cardiac Stress and Resting SPECT Images: Cardiac Stress and Resting SPECT images were obtained using technetium 99m Myoview 30.5 mCi stress and 10.68 mCi at rest. The patient could not lie on her abdomen. Therefore, prone stress imaging could not be performed. This may affect the diagnostic interpretation of the study findings. Resting and stress imaging in supine position demonstrate no evidence of fixed or reversible perfusion defects. Gated imaging demonstrates normal global and regional LV systolic function. LVEF is calculated at 70%. Of note, the right ventricle appears dilated. Correlation with new or recent TTE is suggested. Conclusion: No evidence of fixed or reversible perfusion defects. Gated imaging demonstrates normal global and regional LV systolic function. LVEF is calculated at 70%. Of note, the right ventricle appears dilated. Correlation with new or recent TTE is suggested. Electronically signed by : Lexi Watson MD 04/05/2024 11:53:48
[2024-04-04] MEDS: REGADENOSON 0.4MG/5ML SYRINGE 0.4 MG IV (13:37)
[2024-04-04] MEDS: ISOTOPE MYOVIEW (PER STUDY) 1 DOSE IV (13:37)
[2024-04-04] MEDS: SODIUM CHLORIDE 0.9% 10ML SYR (RAD ONLY) 10 ML IV ×2 (13:37)
== END 2024-04-04 23:59 | disposition home or self-care (01) ==
LOC: RAD 11:46
PROVIDERS: PCP Family Medicine; Visit Provider Nurse Practitioner Family
DX: I25.10 Atherosclerotic heart disease of native coronary artery without angina pectoris (principal); E78.2 Mixed hyperlipidemia; I50.33 Acute on chronic diastolic (congestive) heart failure; I34.0 Nonrheumatic mitral (valve) insufficiency; I26.99 Other pulmonary embolism without acute cor pulmonale; J96.21 Acute and chronic respiratory failure with hypoxia; E66.9 Obesity, unspecified; Z99.81 Dependence on supplemental oxygen
CPT/HCPCS: 78452; 93017; 93018; A9502; J2785

== ENCOUNTER 2024-04-17 10:01 | Outpatient (CLI) | payer MEDICARE, SELFPAY ==
[2024-04-17 10:41] LABS: Blood Urea Nitrogen 14 mg/dl (7-17); Estimated Glomerular Filt Rate 81 ml/min (>60); GFR (African American) 97 ML/MIN (>60)
[2024-04-17] MEDS: 0.9 % SODIUM CHLORIDE 50 ML VIAL IV (12:08)
[2024-04-17] MEDS: GADOTERIDOL INJ 20ML SYRINGE 20 ML IV (12:09)
[2024-04-17] MEDS: SODIUM CHLORIDE 0.9% 10ML SYR (RAD ONLY) 10 ML IV (12:09)
== END 2024-04-17 23:59 | disposition home or self-care (01) ==
LOC: RAD 10:02
PROVIDERS: PCP Family Medicine; Visit Provider Nurse Practitioner Family
DX: I50.33 Acute on chronic diastolic (congestive) heart failure (principal); I25.10 Atherosclerotic heart disease of native coronary artery without angina pectoris; E78.2 Mixed hyperlipidemia; I34.0 Nonrheumatic mitral (valve) insufficiency; I26.99 Other pulmonary embolism without acute cor pulmonale; J96.21 Acute and chronic respiratory failure with hypoxia; E66.9 Obesity, unspecified; Z99.81 Dependence on supplemental oxygen; R93.1 Abnormal findings on diagnostic imaging of heart and coronary circulation
CPT/HCPCS: 36415; 75561; 82565; 84520; A9576

== ENCOUNTER 2024-05-10 13:51 | Inpatient (IN) | payer MEDICARE, SELFPAY ==
[2024-05-10] VITALS (20 sets, daily range): BP systolic 117–154; BP diastolic 38–98; PULSE 69–93; RESP 13–26; TEMP 36.6–37.1; O2SAT 77–100; BMI 41.6; BMI 41.5
--- NOTE | 2024-05-10 13:46 | XR_ITS ---
FINAL REPORT CLINICAL HISTORY: Shortness of breath, cough COMPARISON: 02/12/2024 FINDINGS: Perihilar airspace opacities are slightly worse since the prior exam. These are favored to represent edema, although pneumonia is not excluded. There is a small to moderate left pleural effusion. Mediastinum is unremarkable. A hiatal hernia is noted. Heart size is mildly enlarged. IMPRESSION: Worsening pulmonary opacities favor edema over pneumonia. Reviewed, Interpreted and Dictated by Bebo Ahmadi MD Transcribed by Omayra Pabon Authenticated and [facility]
--- NOTE | 2024-05-10 13:47 | ECG_ITS ---
APPROVED REPORT Exam: Resting ECG HR:79 bpm ECG Measurements Heart Rate 79 AXES TN 156 P 88 QRSd 91 QRS 74 QT 371 T 41 QTc 406 Conclusion SINUS RHYTHM POSSIBLE RIGHT VENTRICULAR CONDUCTION DELAY [RSR (QR) IN V1/V2] NONSPECIFIC T-WAVE ABNORMALITY BORDERLINE ECG UNCONFIRMED REPORT Electronically signed by : JESSY REED, 05/11/2024 05:14:13
[2024-05-10 13:54] LABS: Basophils # 0.1 K/mm3 (0-0.2); Eosinophils # 0.2 K/mm3 (0.0-0.4); Eosinophils % 2.2 % (0.1-12.0); Hematocrit 31.7 % (37.0-47.0); Hemoglobin 8.9 g/dL (12.2-16.2); Lymphocytes # 1.8 K/mm3 (0.7-4.5); Lymphocytes % 19.1 % (10-50); Mean Corpuscular HGB Conc 28.1 g/dL (31.8-35.4); Mean Corpuscular Hemoglobin 27.7 pg (27.0-31.2); Mean Corpuscular Volume 98.8 fl (81-99); Mean Platelet Volume 10.3 fl (7.4-10.4); Monocytes # 0.8 K/mm3 (0.1-1.0); Neutrophils # 6.3 K/mm3 (1.8-7.8); Neutrophils % 67.8 % (37.0-80.0); Platelet Count 178 K/mm3 (142-424); Red Blood Count 3.21 M/mm3 (4.20-5.40); Red Cell Distribution Width 14.6 % (11.5-17.5); White Blood Count 9.3 K/mm3 (4.8-10.8)
[2024-05-10 13:57] LABS: VBG Base Excess 15.7 mmol/L (-2.4-2.3); VBG HCO3 43.2 mmol/L (23-30); VBG Oxygen Saturation 73.3 % (50-70); VBG PH 7.24 mmol/L (7.31-7.41); VBG PO2 42.2 mmol/L (28-40); VBG Total CO2 46.4 mmol/L (23-27)
[2024-05-10] MEDS: IPRATROPIUM/ALBUTEROL 3 ML NEB 6 ML IH (13:58)
[2024-05-10] MEDS: MAGNESIUM SULFATE IN WATER 2 GM/50 ML PIGGYBACK IV (13:58)
[2024-05-10 13:59] LABS: Lactate Venous 2.1 mmol/L (0.4-2.0); VBG PCO2 104.3 mmol/L (35-51)
--- NOTE | 2024-05-10 14:08 | PC.NURSE ---
respiratory at bedside to place pt on BIPAP
[2024-05-10 14:11] LABS: Activated Partial Thrombo Time 26.2 seconds (22.8-30.6)
[2024-05-10 14:16] LABS: INR 1.04 (0.9-1.1); Prothrombin Time 11.6 seconds (10.1-12.5)
--- NOTE | 2024-05-10 14:21 | [facility].EDCP ---
Discharge Plan Disposition Patient Disposition: Admitted Chief Complaint: Shortness of Breath/Dyspnea Prescriptions Prescriptions: No Action Eliquis 5 mg tablet 5 mg PO BID Qty: 180 2RF hydroxyzine HCl 50 mg tablet 50 mg PO Q6H PRN Patient Comments: TAKE 1/2 TO 1 TABLET BY MOUTH EVERY 6 HOURS NEEDED FOR ANXIETY donepezil 10 mg tablet 10 mg PO DAILY Patient Comments: TAKE 1 TABLET BY MOUTH DAILY atenolol 25 mg tablet 25 mg PO DAILY Patient Comments: TAKE 1 TABLET BY MOUTH DAILY amlodipine 5 mg tablet 5 mg PO DAILY trazodone 150 mg tablet 150 mg PO HS levothyroxine 125 mcg tablet 125 mcg PO DAILYDM duloxetine 60 mg capsule,delayed release(DR/EC) 60 mg PO DAILY Patient Comments: TAKE 1 CAPSULE BY MOUTH DAILY albuterol sulfate 2.5 mg /3 mL (0.083 %) solution for nebulization 2.5 mg inhalation Q4HP PRN (Reason: Shortness Of Breath Or Wheezing) Patient Comments: INHALE CONTENTS OF 1 VIAL VIA NEBULIZER EVERY 4 HOURS NEEDED FOR WEEZING memantine 5 mg tablet 5 mg PO BID alendronate 70 mg tablet 70 mg PO WEEKLY buspirone 30 mg tablet 30 mg PO BID guaifenesin 600 mg tablet extended release 12hr 1,200 mg PO BID budesonide-formoterol [Breyna] 160-4.5 mcg/actuation HFA aerosol inhaler 2 inh INHALATION BIDRT Patient Comments: INHALE 2 PUFFS BY MOUTH TWICE DAILY albuterol sulfate [Ventolin HFA] 90 mcg/actuation HFA aerosol inhaler 2 puff inhalation Q4HP PRN (Reason: shortness of breath or wheezing) atorvastatin 40 mg Tablet 40 mg PO HS 30 Days Qty: 30 0RF Trelegy Ellipta 100-62.5-25 mcg Blister With Device 1 inh inhalation DAILY 30 Days Qty: 60 0RF Referrals Follow up/Referrals: Earl Dumont [Primary Care Provider] - See instructions Clinical Impressions Clinical Impression: Acute exacerbation of chronic obstructive pulmonary disease, CHF exacerbation, Acute hypercapnic respiratory failure Print Language Print Language: [place] Discharge ED Provider: Jean Larsen General Chief Complaint: Shortness of Breath/Dyspnea Stated Complaint: SOA Time Seen by Provider: 05/10/24 13:51 Mode of Arrival: EMS Source of Information: Patient and EMS Description of Symptoms (Recalled from ER Triage Doc. by RN): pt presents to ED with EMS for shortness of air. pt does have hx of COPD. chronic oxygen use at 2.5 LNC.upon ems arrival, pt air hungry and in distress. pt placed on 4L NC upon EMS arrival. History of Present Illness HPI narrative: Please note that above description of symptoms, in this electronic medical record under categorization of recalled from ER triage doctor by RN are reflective of an initial nursing assessment, however, is not reflective of my full history and physical exam that was personally taken and clarified. Consequentially, this preceding description of symptoms, which may include the patient's categorized chief complaint in the EMR, do not reflect my personal clinical impression, and the ultimate description of history of present illness and patient stated complaints should be deferred to this section of the note. Unless stated otherwise or congruent with this section of the note, additional signs, symptoms, or incongruence should be interpreted as inaccurate with my clinical impression. Related Data Home Medications ?Medication ?Instructions ?Recorded ?Confirmed amlodipine 5 mg tablet 5 mg PO DAILY 03/12/23 04/19/24 atenolol 25 mg tablet 25 mg PO DAILY 03/12/23 04/19/24 donepezil 10 mg tablet 10 mg PO DAILY 03/12/23 04/19/24 duloxetine 60 mg capsule,delayed 60 mg PO DAILY 03/12/23 04/19/24 release levothyroxine 125 mcg tablet 125 mcg PO DAILYDM 03/12/23 04/19/24 trazodone 150 mg tablet 150 mg PO HS 03/12/23 04/19/24 albuterol sulfate 2.5 mg/3 mL 2.5 mg inhalation Q4HP PRN 10/14/23 04/19/24 (0.083 %) solution for nebulization Shortness Of Breath Or Wheezing memantine 5 mg tablet 5 mg PO BID 10/14/23 04/19/24 alendronate 70 mg tablet 70 mg PO WEEKLY 02/12/24 04/19/24 buspirone 30 mg tablet 30 mg PO BID 02/12/24 04/19/24 guaifenesin 600 mg tablet, 1,200 mg PO BID 02/12/24 04/19/24 extended release 12 hr albuterol sulfate 90 mcg/actuation 2 puff inhalation Q4HP PRN 02/13/24 04/19/24 aerosol inhaler (Ventolin HFA) shortness of breath or wheezing budesonide-formoterol HFA 160 2 inh inhalation BIDRT 02/13/24 04/19/24 mcg-4.5 mcg/actuation aerosol inhaler (Breyna) hydroxyzine HCl 50 mg tablet 50 mg PO Q6H PRN 03/08/24 04/19/24 Previous Rx's ?Medication ?Instructions ?Recorded apixaban 5 mg tablet (Eliquis) 5 mg PO BID #180 tabs 11/08/23 atorvastatin 40 mg tablet 40 mg PO HS 30 days #30 tabs 02/15/24 fluticasone fur. 100 mcg-umeclid 1 inh inhalation DAILY 30 days #60 02/15/24 62.5 mcg-vilant 25 mcg ea inhalat.powder (Trelegy Ellipta) Allergies Allergy/AdvReac Type Severity Reaction Status Date / Time sulfamethoxazole (From AdvReac Mild Nausea Verified 04/19/24 13:26 Bactrim) trimethoprim (From Bactrim) AdvReac Mild Nausea Verified 04/19/24 13:26 [facility] Disclaimer: The information contained in this section may have been updated after the patient was seen, as this information can be updated by other users. Medical History SOB (shortness of breath) on exertion Abnormal echocardiogram Elevated troponin Hyperlipidemia (HFpEF) heart failure with preserved ejection fraction CAD (coronary artery disease) HTN (hypertension) Heart failure Chronic respiratory failure with hypoxia History of COPD Second hand smoke exposure Surgical History History of left knee replacement Family History Other No significant family history Social History Smoking Status: Never smoker alcohol intake: never current occupational status: retired Travel in the last 8 weeks: None Other Medical History Have you received the Flu Vaccine for this season: No Have you received the Pneumonia Vaccine: No ROS Obtained: Yes All systems reviewed & no additional complaints except as documented Physical Exam General General appearance: alert, in no apparent distress and obese Comment: Fatigued appearing Neck Neck exam: Present trachea midline Chest Chest inspection: Present normal inspection and symmetric chest wall rise Respiratory Respiratory exam: Present respiratory distress, wheezes, accessory muscle use, prolonged expiratory phase and other (Grunting and tachypneic); Absent stridor Cardiovascular Cardiovascular exam: Present regular rate, normal rhythm and other (Pulses equal and symmetric in upper and lower extremities) Extremities Exam Extremities exam: Absent edema Neurological Exam Neurological exam: Present alert and CN II-XII intact Skin Skin exam: Present warm and dry; Absent cyanosis, diaphoresis or pallor HEART Score HEART Score HEART Score assessment performed?: Yes HEART Score: 4 Critical Care Critical Care Time Critical Care Time: Yes (respiratory, cardiac) Attestation: On 05/10/24, the high probability of a clinically significant, sudden or life threatening deterioration of the following system(s) required my full and direct attention, intervention and personal management. The time I documented below is in addition to time spent performing reported procedures but includes the following listed in this critical care notation. Total Time Total Critical Care Time: 45 Medical Decision Making Medical Records Medical records reviewed: Yes I reviewed the patient's medical records. [place] Inquiry Pt receiving controlled substance: No [place] was queried for this patient: No Vital Signs Vital Signs: 05/10/24 13:57 05/10/24 14:00 05/10/24 14:25 Temperature 98.0 F Temperature Source Oral Pulse Rate 72 Pulse Rate [Left Radial] 86 Respiratory Rate 19 25 H Blood Pressure 150/51 H Blood Pressure [Right Arm] 124/74 Blood Pressure Mean [Right Arm] 90 Blood Pressure Source [Right Arm] Automatic Cuff Blood Pressure Position [Right Arm] Sitting 02 Sat by Pulse Oximetry 94 L 94 L Oxygen Delivery Method Nasal Cannula Nasal Cannula Oxygen Flow Rate (LPM) 4 4 Fraction of Inspired Oxygen 30 Lab Data Labs: Lab Results 05/10/24 13:45: WBC 9.3, RBC 3.21 L, Hgb 8.9 L, Hct 31.7 L, MCV 98.8, MCH 27.7, MCHC 28.1 L, RDW 14.6, Plt Count 178, MPV 10.3, Neut % (Auto) 67.8, Lymph % (Auto) 19.1, [place] % (Auto) 9.0, Eos % (Auto) 2.2, Baso % (Auto) 1.0, Neut # (Auto) 6.3, Lymph # (Auto) 1.8, [place] # (Auto) 0.8, Eos # (Auto) 0.2, Baso # (Auto) 0.1, PT 11.6, INR 1.04, APTT 26.2, Sodium 141, Potassium 4.7, Chloride 92 L, Carbon Dioxide 45 H*, Anion Gap 8.7, BUN 14, Creatinine 0.70, Estimated Creat Clear 37, Estimated GFR 81, Est GFR ( Amer) 97, Glucose 130 H, Calcium 8.9, Magnesium 2.0, Total Bilirubin 0.6, AST 19, ALT 14, Alkaline Phosphatase 64, Troponin I 0.01, NT-Pro-B Natriuret Pep 2820 H, Total Protein 6.2 L, Albumin 3.0 L, Globulin 3.2, Albumin/Globulin Ratio 0.9 L 05/10/24 13:56: VBG pH 7.24 L, VBG pCO2 104.3 H, VBG pO2 42.2 H, VBG HCO3 43.2 H, VBG Total CO2 46.4 H, VBG O2 Saturation 73.3 H, VBG Base Excess 15.7 H, VBG Lactic Acid 2.1 H 05/10/24 13:45 05/10/24 13:45 Response Orders (Tests/Meds): ED MEDICATIONS Discontinued Medications Generic Name Dose Route Start Last Admin Trade Name Marinoq PRN Reason Stop Dose Admin Albuterol/Ipratropium 6 ml 05/10/24 13:45 05/10/24 13:58 Ipratropium/Albuterol 3 Ml Neb IH 05/10/24 13:46 6 ml ONCE ONE Administration Furosemide 60 mg 05/10/24 15:13 05/10/24 15:24 Furosemide 40mg/4ml Vial IV 05/10/24 15:14 60 mg ONCE ONE Administration Magnesium Sulfate 2 gm in 50 mls @ 50 mls/hr 05/10/24 13:45 05/10/24 13:58 Magnesium Sulfate 2gm/50ml Premix IV 05/10/24 14:44 50 mls/hr ONCE ONE Administration Ondansetron HCl 4 mg 05/10/24 14:24 05/10/24 14:26 Ondansetron 4mg/2ml Vial IV 05/10/24 14:25 4 mg ONCE ONE Administration ORDERS Category Date Time Status XR chest portable Stat Exams 05/10/24 13:46 Completed Complete Blood Count Auto Diff Stat Lab 05/10/24 13:45 Completed Comprehensive Metabolic Panel Stat Lab 05/10/24 13:45 Completed Magnesium Stat Lab 05/10/24 13:45 Completed NT Pro Brain Natriuretic Pep. Stat Lab 05/10/24 13:45 Completed PT INR [Prothrombin Time INR] Stat Lab 05/10/24 13:45 Completed PTT [Activated Partial Thrombo Time] Stat Lab 05/10/24 13:45 Completed Troponin I Q3H Lab 05/10/24 17:00 Ordered Troponin I Q3H Lab 05/10/24 20:00 Ordered Troponin I Stat Lab 05/10/24 13:45 Completed Blood Culture Stat Micro 05/10/24 14:09 Received VBG [Venous Blood Gas] Routine RT 05/10/24 16:00 Ordered Venous Blood Gas Stat RT 05/10/24 13:56 Completed MDM Narrative Medical Decision Narrative: 79-year-old female history of hypertension, hyperlipidemia, CAD, CHF, COPD on 2 L nasal cannula home oxygen presenting with respiratory distress from home. States that she has been feeling bad for about 2 days, getting worse. Cough is productive of white, thick sputum which is normal for her. No fevers, chills, systemic signs or symptoms. Also denies chest pain, worsening lower extremity swelling, abdominal pain, vomiting, diarrhea, or any other concerns. History was obtained via conversation with patient and EMS. On arrival, patient hemodynamically stable, alert, appropriate, GCS 15, moving all extremities spontaneously, pupils equal and reactive to light. Full physical exam performed and significant for severe respiratory distress. Tachypneic, tachycardic, speaking partial sentences, grunting, 4 L nasal cannula, bilateral diffuse wheezing with decreased breath sounds in the inferior lungs from what can be heard due to habitus and respiratory work. Patient does have lower extremity edema pitting as well.. Differential includes CHF exacerbation, COPD exacerbation, bronchitis, pneumonia, PE, pneumothorax, hypoxemic respiratory failure, hypercapnic respiratory failure, among others. Patient was given BiPAP, DuoNebs, Solu-Medrol for symptomatic management and correction of underlying abnormalities. Patient placed on continuous cardiac monitoring and continuous pulse ox with initial blood pressure 124/74, heart rate 86, saturation 94% on 4 L nasal cannula. Independent interpretation of EKG shows sinus rhythm 79 bpm with MD interval 156, QRS 91, QTc 406. Patient has T wave inversions in 3 as well as nonspecific ST changes in the precordium with no reciprocal elevations. Normal axis. Workup independently interpreted and significant for nonactionable CBC or chemistry other than CO2. Patient's VBG most concerning. pH 7.24/CO2 104/bicarb elevated at 43 consistent with acute on chronic hypercapnic respiratory failure. Lactate 2.1. Patient's troponin negative, BNP elevated nearly 3000. She was given 60 mg IV Lasix. On independent interpretation of imaging, patient has pulmonary edema and pleural effusion. See radiology read for full review of final results. Hospital medicine contacted and case was discussed at length, patient to be admitted for acute hypoxemic and hypercapnic respiratory failure in the setting of CHF and COPD exacerbation. [employer] disclaimer Much of this encounter note is an electronic recyclable products sorter spoken language to printed text. Electronic recyclable products sorter of the spoken language may permit errors. Although I have reviewed the note, some errors may still exist.
[2024-05-10 14:22] LABS: Alanine Aminotransferase 14 U/L (12-78); Albumin/Globulin Ratio 0.9 (1.1-1.8); Alkaline Phosphatase 64 U/L (38-126); Aspartate Amino Transferase 19 U/L (14-36); Bilirubin,Total 0.6 mg/dl (0.2-1.3); Blood Urea Nitrogen 14 mg/dl (7-17); Calcium 8.9 mg/dl (8.4-10.2); Chloride 92 mmol/L (98-107); Creatinine Clearance Estimated 37 mL/min (50-200); Estimated Glomerular Filt Rate 81 ml/min (>60); GFR (African American) 97 ML/MIN (>60); Globulin 3.2 g/dL (1.3-3.2); Glucose 130 mg/dl (74-100); Potassium 4.7 mmoL/L (3.5-5.1); Sodium 141 mmol/L (136-145); Total Protein,Serum 6.2 g/dl (6.3-8.2)
[2024-05-10] MEDS: ONDANSETRON 4MG/2ML VIAL 4 MG IV (14:26)
[2024-05-10 14:34] LABS: NT Pro Brain Natriuretic Pep. 2820 pg/mL (0-450)
[2024-05-10 14:43] LABS: Anion Gap 8.7 mEq/L (5-15); Carbon Dioxide 45 mmol/L (22.0-30.0); Troponin I 0.01 ng/ml (0.00-0.034)
[2024-05-10] MEDS: FUROSEMIDE 40MG/4ML VIAL 60 MG IV (15:24)
--- NOTE | 2024-05-10 15:43 | PC.NURSE ---
placed purewick on pt at this time
--- NOTE | 2024-05-10 16:01 | P.HP_ITS ---
History of Present Illness *Admission Date: 05/10/24 *Reason for visit:: dyspnea, edema *History of present illness: Ms. Garcia is an 79-year-old female with history of chronic hypoxemic respiratory failure, COPD, hypertension, HFpEF, obesity, tremors. She presented with confusion and worsening shortness of breath over the past 2 to 3 days. Family is at bedside and helps answer questions. On arrival to the ED, patient hypoxic on initial presentation. Blood gas showed CO2 greater than 100 on VBG with pH of 7.2. Initiated on BiPAP. Chest imaging showing significant pulmonary edema bilaterally with elevated BNP. Medicine consulted for admission and further management of COPD exacerbation and acute on chronic HFpEF along with acute on chronic hypoxemic and hypercapnic respiratory failure Evaluation after arriving to the floor, patient is alert and oriented x 2. History supplemented by family at bedside. Has shown improvement in her blood gas with pH normal on VBG at 7.31. pCO2 80. Patient hungry and wanting to eat. Refusing to wear the mask any further. Transition to Vapotherm. White count normal at 9.3. Kidney function at baseline with BUN 14, creatinine 0.7. Has significant edema on exam. Has not had significant urine output since diuretics administered in the ED. Denies chest pain. Denies significant confusion. Denies nausea or vomiting. Does report she has not been taking her diuretics due to them making her pee regularly. [facility] Disclaimer: The information contained in this section may have been updated after the patient was seen, as this information can be updated by other users. Medical History SOB (shortness of breath) on exertion Abnormal echocardiogram Elevated troponin Hyperlipidemia (HFpEF) heart failure with preserved ejection fraction CAD (coronary artery disease) HTN (hypertension) Heart failure Chronic respiratory failure with hypoxia History of COPD Second hand smoke exposure Surgical History History of left knee replacement Family History No significant family history Social History Smoking Status: Never smoker alcohol intake: never current occupational status: retired Travel in the last 8 weeks: None Other Medical History Have you received the Flu Vaccine for this season: No Have you received the Pneumonia Vaccine: No Review of Systems Review of Systems Review of systems (narrative): 14 point review of systems performed, pertinent positives and negatives as per HPI Meds Home Medications and Allergies Home Medications ?Medication ?Instructions ?Recorded ?Confirmed ?Type amlodipine 5 mg tablet 5 mg PO DAILY 03/12/23 04/19/24 History atenolol 25 mg tablet 25 mg PO DAILY 03/12/23 04/19/24 History donepezil 10 mg tablet 10 mg PO DAILY 03/12/23 04/19/24 History duloxetine 60 mg capsule,delayed 60 mg PO DAILY 03/12/23 04/19/24 History release levothyroxine 125 mcg tablet 125 mcg PO DAILYDM 03/12/23 04/19/24 History trazodone 150 mg tablet 150 mg PO HS 03/12/23 04/19/24 History albuterol sulfate 2.5 mg/3 mL 2.5 mg inhalation Q4HP PRN 10/14/23 04/19/24 History (0.083 %) solution for nebulization Shortness Of Breath Or Wheezing memantine 5 mg tablet 5 mg PO BID 10/14/23 04/19/24 History apixaban 5 mg tablet (Eliquis) 5 mg PO BID #180 tabs 11/08/23 04/19/24 Rx alendronate 70 mg tablet 70 mg PO WEEKLY 02/12/24 04/19/24 History buspirone 30 mg tablet 30 mg PO BID 02/12/24 04/19/24 History guaifenesin 600 mg tablet, 1,200 mg PO BID 02/12/24 04/19/24 History extended release 12 hr albuterol sulfate 90 mcg/actuation 2 puff inhalation Q4HP PRN 02/13/24 04/19/24 History aerosol inhaler (Ventolin HFA) shortness of breath or wheezing budesonide-formoterol HFA 160 2 inh inhalation BIDRT 02/13/24 04/19/24 History mcg-4.5 mcg/actuation aerosol inhaler (Breyna) atorvastatin 40 mg tablet 40 mg PO HS 30 days #30 tabs 02/15/24 04/19/24 Rx fluticasone fur. 100 mcg-umeclid 1 inh inhalation DAILY 30 days #60 02/15/24 04/19/24 Rx 62.5 mcg-vilant 25 mcg ea inhalat.powder (Trelegy Ellipta) hydroxyzine HCl 50 mg tablet 50 mg PO Q6H PRN 03/08/24 04/19/24 History New Prescriptions to Start Prescriptions: Allergies Allergy/AdvReac Type Severity Reaction Status Date / Time sulfamethoxazole (From AdvReac Mild Nausea Verified 04/19/24 13:26 Bactrim) trimethoprim (From Bactrim) AdvReac Mild Nausea Verified 04/19/24 13:26 Exam Data for Last 24 hours Vital signs and Labs for Last 24 Hours: Temp Pulse Resp BP Pulse Ox O2 Del Method O2 Flow Rate 98.0 F 72 25 H 150/51 H 94 L Nasal Cannula 4 05/10/24 13:57 05/10/24 14:00 05/10/24 14:00 05/10/24 14:00 05/10/24 14:00 05/10/24 14:00 05/10/24 14:00 FiO2 30 05/10/24 14:25 Laboratory Results - last 24 hr 05/10/24 13:45: WBC 9.3, RBC 3.21 L, Hgb 8.9 L, Hct 31.7 L, MCV 98.8, MCH 27.7, MCHC 28.1 L, RDW 14.6, Plt Count 178, MPV 10.3, Neut % (Auto) 67.8, Lymph % (Auto) 19.1, [place] % (Auto) 9.0, Eos % (Auto) 2.2, Baso % (Auto) 1.0, Neut # (Auto) 6.3, Lymph # (Auto) 1.8, [place] # (Auto) 0.8, Eos # (Auto) 0.2, Baso # (Auto) 0.1, PT 11.6, INR 1.04, APTT 26.2, Sodium 141, Potassium 4.7, Chloride 92 L, Carbon Dioxide 45 H*, Anion Gap 8.7, BUN 14, Creatinine 0.70, Estimated Creat Clear 37, Estimated GFR 81, Est GFR ( Amer) 97, Glucose 130 H, Calcium 8.9, Magnesium 2.0, Total Bilirubin 0.6, AST 19, ALT 14, Alkaline Phosphatase 64, Troponin I 0.01, NT-Pro-B Natriuret Pep 2820 H, Total Protein 6.2 L, Albumin 3.0 L, Globulin 3.2, Albumin/Globulin Ratio 0.9 L 05/10/24 13:56: VBG pH 7.24 L, VBG pCO2 104.3 H, VBG pO2 42.2 H, VBG HCO3 43.2 H , VBG Total CO2 46.4 H, VBG O2 Saturation 73.3 H, VBG Base Excess 15.7 H, VBG Lactic Acid 2.1 H I & O for Last 24 hours: Intake & Output 05/07/24 05/08/24 05/09/24 05/10/24 23:59 23:59 23:59 23:59 Weight 106.594 kg Constitutional Constitutional: moderate distress, morbidly obese, chronically ill appearing and cooperative *Routine HEENT Exam Head: Present normocephalic Eye: Present EOMI ENT: Present mucous membranes moist *Routine Neck Exam Neck: Present supple, full ROM and trachea midline *Routine Respiratory Exam Respiratory: Present decreased breath sounds, rhonchi, wheezes and diminished air movement; Absent crackles *Routine Cardiovascular Exam Cardiovascular: Present RRR, Normal S1 and Normal S2 *Routine Abdominal Exam Abdominal: Present soft, normoactive bowel sounds and obese *Routine Rectal Exam Rectal:: deferred *Routine Genitalia Exam Genitalia:: deferred *Routine Extremities Exam Extremities: Present edema (3+ to thighs), full ROM, pulses intact and normal capillary refill Routine Back/Spine/Pelvis Exam Back/Spine: Present full ROM *Routine Skin Exam Skin: Present intact, dry and warm *Routine Neurological Exam Neurological: Present alert, altered mental status, moving all extremities and normal speech Comments: Oriented to self and situation Routine Psychiatric Exam Psychiatric: Present normal affect and cooperative Assessment and Plan *Assessment and plan (1) Respiratory failure with hypoxia and hypercapnia: Status: Acute Qualifiers: Chronicity: acute on chronic Qualified Code(s): J96.21 - Acute and chronic respiratory failure with hypoxia; J96.22 - Acute and chronic respiratory failure with hypercapnia Category: Medical Code(s): J96.91 - Respiratory failure, unspecified with hypoxia; J96.92 - Respiratory failure, unspecified with hypercapnia (2) Metabolic encephalopathy: Status: Acute Category: Medical Code(s): G93.41 - Metabolic encephalopathy (3) Pneumonia: Status: Acute Qualifiers: Laterality: right Lung location: unspecified part of lung Pneumonia type: due to unspecified organism Qualified Code(s): J18.9 - Pneumonia, unspecified organism Category: Medical Code(s): J18.9 - Pneumonia, unspecified organism (4) Bilateral pulmonary embolism: Status: Acute Category: Medical Code(s): I26.99 - Other pulmonary embolism without acute cor pulmonale (5) Acute on chronic hypoxic respiratory failure: Status: Acute Category: Medical Code(s): J96.21 - Acute and chronic respiratory failure with hypoxia (6) COPD exacerbation: Status: Acute Category: Medical Code(s): J44.1 - Chronic obstructive pulmonary disease with (acute) exacerbation (7) Acute exacerbation of chronic obstructive pulmonary disease: Status: Acute Category: Medical Code(s): J44.1 - Chronic obstructive pulmonary disease with (acute) exacerbation (8) (HFpEF) heart failure with preserved ejection fraction: Status: Acute Qualifiers: Heart failure chronicity: acute on chronic Qualified Code(s): I50.33 - Acute on chronic diastolic (congestive) heart failure Category: Medical Code(s): I50.30 - Unspecified diastolic (congestive) heart failure (9) Obesity: Status: Acute Qualifiers: Body mass index: unspecified BMI Obesity classification: adult class 1 (BMI 30 - 34.9) Obesity type: due to excess calories Serious obesity comorbidity presence: without serious comorbidity Qualified Code(s): E66.811 - Obesity, class 1; E66.09 - Other obesity due to excess calories Category: Medical Code(s): E66.9 - Obesity, unspecified Plan Patito Garcia is an 79-year-old female with a medical history significant for COPD on home O2, hypertension, pulmonary embolism, hypertension, dementia, anxiety/depression, hypothyroidism who presents with shortness of breath, suspected confusion, worsening symptoms over the past 2 to 3 days. Discussed case with ER physician, request admission for further management of COPD and heart failure exacerbation. I agreed to admit for further care. Admitted to stepdown. Will wean off BiPAP to Vapotherm. Necessitating inpatient care. Pulmonology and cardiology consulted to evaluate in the morning. Problems addressed as follows: #Acute metabolic encephalopathy, resolved #Acute on chronic hypoxic, hypercapnic respiratory failure #Acute COPD exacerbation #Community-acquired pneumonia ? Initial VBG pH 7.24, pCO2 of 100, pO2 42. Initiated on BiPAP. Showed improvement by the time she got to the floor. pH improved to 7.31, pCO2 of 80. Has significant compensation with bicarb of 45. Based on Morton formula, expected pCO2 is 74-78. Appears compensated at this time. Transition to Vapo therm. Wean for goal sats 90 to 95%. Baseline oxygen at home with 2 to 3 L -DuoNebs every 4 hours scheduled. Initiate budesonide twice daily -Continue home Trelegy -Comprehensive respiratory panel pending -White count normal at 9.3, does not appear to be infectious. Holding on empiric antibiotics at this time. ?Pulmonology consulted to evaluate patient in the morning. Appreciate their assistance in care #Acute on chronic HFpEF -Initial troponin 0.01, 3-hour troponin 0.02. ?BNP elevated at 2800. Significant pulmonary edema per my review of chest x-ray bilaterally on imaging. Also has 3+ edema in her legs. Will initiate Bumex drip at 0.5 mg an hour. Strict I's and O's. Will place Amaro for monitoring of output. Anticipate improvement in respiratory failure with diuresis. -Echo reviewed from February shows elevated RVSP. EF appears preserved. -Admits to not taking her diuretics. -Cardiology consulted to assist with medication optimization in the morning -Continue Lipitor 40 mg nightly. Will hold on blood pressure meds pending med review. -BUN 14, creatinine 0.7. Potassium 4.7, magnesium 2.0. Repeat CBC, CMP, magnesium ordered for the morning. #Falls at home #Physical deconditioning - PT/OT consulted, appreciate recommendations in the morning. Previously recommended SNF placement at last admission. #Chronic pulmonary embolism: Resume home Eliquis 5 mg twice daily. #Hypertension: Holding blood pressure medication at this time, will evaluate home regimen and consider resuming in the morning. Patient normotensive at 128/48 #Dementia: resumed home donepezil and memantine #Anxiety/depression: Resumed home buspirone, duloxetine. #Hypothyroidism: Resumed home levothyroxine 125 mcg. TSH ordered for the morning. Obesity complicates all aspects of her care. Concern for obesity hypoventilation component to her respiratory failure. Full code DVT prophylaxis Eliquis
[2024-05-10 16:12] LABS: Lactate Venous 1.4 mmol/L (0.4-2.0); VBG Base Excess 14.2 mmol/L (-2.4-2.3); VBG HCO3 40.4 mmol/L (23-30); VBG Oxygen Saturation 81.6 % (50-70); VBG PH 7.31 mmol/L (7.31-7.41); VBG PO2 45.3 mmol/L (28-40); VBG Total CO2 42.9 mmol/L (23-27)
[2024-05-10 16:16] LABS: VBG PCO2 81.4 mmol/L (35-51)
--- NOTE | 2024-05-10 17:43 | PC.NURSE ---
arrived by stretcher from ED
[2024-05-10 17:57] LABS: Reflex Lactic Add Lactic Reflex
--- NOTE | 2024-05-10 18:00 | PC.NURSE ---
Pt arrived to the unit on 4 lpm nc. o2 sats were noted to be 77. RT was present in room, pt was then placed on 50% bipap and sats were noted to improve to 99%. fio2 was weaned by RT to 40%
[2024-05-10] MEDS: IPRATROPIUM/ALBUTEROL 3 ML NEB IH ×2 (18:08→22:06)
[2024-05-10] MEDS: BUDESONIDE 0.5MG/2ML NEB 0.5 MG IH (18:08)
[2024-05-10 18:16] LABS: Troponin I 0.02 ng/ml (0.00-0.034)
[2024-05-10 18:31] LABS: Lactic Acid Follow Up (RFLX 1) 2.1 mmol/L (0.7-2.1)
[2024-05-10] MEDS: BUMETANIDE 10 MG in 0.9 % SODIUM CHLORIDE 60 ML 5 MG IV (18:52)
--- NOTE | 2024-05-10 18:58 | PC.NURSE ---
glasses used for reading
--- NOTE | 2024-05-10 19:30 | PC.NURSE ---
no stairs in unit to access stair use
--- NOTE | 2024-05-10 19:50 | PC.NURSE ---
pt home meds are in the omni to be checked by pharmacy
[2024-05-10 19:59] LABS: Reflex Lactic (2 hrs) Add Lactic Reflex
[2024-05-10] MEDS: BUSPIRONE 30 MG 30 EACH PO (20:40)
[2024-05-10] MEDS: ATORVASTATIN 40MG TABLET 40 MG PO (20:41)
[2024-05-10] MEDS: PATIENT'S OWN HOME MEDICATION (Memantine 5 mg tablet) 5 EACH PO (20:41)
[2024-05-10] MEDS: APIXABAN 5MG TABLET 5 MG PO (20:42)
[2024-05-10 20:44] LABS: Lactic Acid Follow up (RFLX 2) 1.2 mmol/L (0.7-2.1)
[2024-05-10 20:56] LABS: Troponin I 0.02 ng/ml (0.00-0.034)
[2024-05-10] MEDS: ACETAMINOPHEN 325MG TAB 650 MG PO (20:57)
--- NOTE | 2024-05-10 21:15 | PC.NURSE ---
16fr carter placed due to pt being on bumex drip. urine sample was sent to lab.
[2024-05-10 21:19] LABS: Microscopic, Urine URINE MICROSCOPIC (MICROSCOPIC)
[2024-05-10 21:59] LABS: Appearance,Urine CLEAR (Clear); Bilirubin,Urine Negative (Negative); Blood, Urine Negative (Negative); Color,Urine YELLOW (Yellow); Glucose,Urine (UA) Negative (Negative); Ketones,Urine Negative (Negative); Leukocyte Esterase,Urine Negative (Negative); Nitrate,Urine Negative (Negative); PH,Urine 5.5 (5.0-8.5); Protein,Urine Negative (Negative); Urobilinogen,Urine 0.2 EU/dl (0.2)
[2024-05-10 23:31] LABS: Bacteria,Urine Trace /lpf; WBC,Urine Occasional #/hpf (0-3)
[2024-05-11] VITALS (24 sets, daily range): BP systolic 123–174; BP diastolic 53–79; PULSE 82–103; RESP 19–34; TEMP 36.8–37.2; O2SAT 90–100; BMI 41.7
[2024-05-11] MEDS: IPRATROPIUM/ALBUTEROL 3 ML NEB IH ×6 (02:30→21:37)
[2024-05-11] MEDS: ACETAMINOPHEN 325MG TAB 650 MG PO ×4 (02:33→23:27)
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
[2024-05-11] MEDS: BUDESONIDE 0.5MG/2ML NEB 0.5 MG IH ×2 (06:00→17:18)
--- NOTE | 2024-05-11 06:09 | PC.NURSE ---
Pt.s 02 sat was 95% on vapotherm settings 40L, 65%. No distress noted. I decreased vapotherm settings to 35L , 60%. Notified RN of change. I will continue to monitor.
[2024-05-11 06:46] LABS: Basophils % 0.3 % (0.1-2.0); Hematocrit 30.1 % (37.0-47.0); Hemoglobin 8.6 g/dL (12.2-16.2); Lymphocytes # 0.9 K/mm3 (0.7-4.5); Lymphocytes % 10.8 % (10-50); Mean Corpuscular HGB Conc 28.6 g/dL (31.8-35.4); Mean Corpuscular Hemoglobin 26.9 pg (27.0-31.2); Mean Corpuscular Volume 94.1 fl (81-99); Mean Platelet Volume 10.8 fl (7.4-10.4); Monocytes # 0.4 K/mm3 (0.1-1.0); Monocytes % 5.4 % (1.7-9.3); Neutrophils # 6.6 K/mm3 (1.8-7.8); Neutrophils % 82.6 % (37.0-80.0); Platelet Count 200 K/mm3 (142-424); Red Cell Distribution Width 14.7 % (11.5-17.5)
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
[2024-05-11 06:57] LABS: Albumin Level 3.1 g/dl (3.5-5.0); Chloride 90 mmol/L (98-107); Potassium 3.7 mmoL/L (3.5-5.1); Sodium 139 mmol/L (136-145)
[2024-05-11 07:00] LABS: Alanine Aminotransferase 14 U/L (12-78); Alkaline Phosphatase 89 U/L (38-126); Aspartate Amino Transferase 19 U/L (14-36); Bilirubin,Total 0.6 mg/dl (0.2-1.3); Blood Urea Nitrogen 18 mg/dl (7-17); Creatinine Clearance Estimated 35 mL/min (50-200); Estimated Glomerular Filt Rate 53 ml/min (>60); GFR (African American) 65 ML/MIN (>60); Total Protein,Serum 6.1 g/dl (6.3-8.2)
[2024-05-11 07:01] LABS: Calcium 8.8 mg/dl (8.4-10.2); Glucose 161 mg/dl (74-100)
[2024-05-11 07:08] LABS: Anion Gap 6.7 mEq/L (5-15); Carbon Dioxide 46 mmol/L (22.0-30.0)
[2024-05-11 07:28] LABS: Thyroid Stimulating Hormone 0.16 uIU/mL (0.465-4.68)
[2024-05-11 08:08] LABS: Adenovirus,PCR Not Detected (NotDetected); Bordetella Pertussis Not Detected (NotDetected); Chlamydophila Pneumoniae, PCR Not Detected (NotDetected); Coronavirus 19, PCR Not Detected (NotDetected); Coronavirus 229E Not Detected (NotDetected); Coronavirus NL63 Not Detected (NotDetected); Coronavirus OC43 Not Detected (NotDetected); Coronovirus HKU1,PCR Not Detected (NotDetected); Human Metapneumovirus Not Detected (NotDetected); Influenza A, PCR Not Detected (NotDetected); Influenza AH1, 2009 Not Detected (NotDetected); Influenza AH1, PCR Not Detected (NotDetected); Influenza AH3,PCR Not Detected (NotDetected); Influenza B, PCR Not Detected (NotDetected); Mycoplasma Pneumoniae, PCR Not Detected (NotDetected); Parainfluenza 1, PCR Not Detected (NotDetected); Parainfluenza 2, PCR Not Detected (NotDetected); Parainfluenza 3, PCR Not Detected (NotDetected); Parainfluenza 4, PCR Not Detected (NotDetected); Respiratory Syncytial Virus Not Detected (NotDetected); Rhinovirus/Enterovirus Not Detected (NotDetected)
--- NOTE | 2024-05-11 08:29 | PC.NURSE ---
no stairs on unit to access stair use
[2024-05-11 08:40] LABS: Lactate Venous 1.7 mmol/L (0.4-2.0); VBG Base Excess 12.5 mmol/L (-2.4-2.3); VBG HCO3 36.9 mmol/L (23-30); VBG Oxygen Saturation 95.3 % (50-70); VBG PH 7.43 mmol/L (7.31-7.41); VBG PO2 75.7 mmol/L (28-40); VBG Total CO2 38.6 mmol/L (23-27)
[2024-05-11 08:44] LABS: VBG PCO2 57.2 mmol/L (35-51)
--- NOTE | 2024-05-11 08:55 | PC.NURSE ---
All patient care and documentation completed by Marilu FRANKLIN was completed under my direct supervision. Jasmin Ricks RN
[2024-05-11] MEDS: FLUTICASONE/UMECLIDIN/VILANTER 100/62.5/25MCG INHALER 1 PUFF IH (08:57)
--- NOTE | 2024-05-11 08:59 | P.CONPHA_ITS ---
Pharmacy Intervention Comments: home medication list verified using list from outpatient pharmacy and PCP office in [place].
[2024-05-11] MEDS: APIXABAN 5MG TABLET 5 MG PO ×2 (09:17→20:33)
[2024-05-11] MEDS: DULOXETINE 30MG CAPSULE.DR 60 MG PO (09:17)
[2024-05-11] MEDS: BUSPIRONE HCL 10 MG TABLET 30 MG PO ×2 (09:17→20:33)
[2024-05-11] MEDS: LEVOTHYROXINE 125MCG (0.125MG) TAB 125 MCG PO (09:18)
[2024-05-11] MEDS: MEMANTINE 10MG TABLET 5 MG PO ×2 (09:18→20:33)
--- NOTE | 2024-05-11 09:28 | PC.NURSE ---
RT placed pt on for vapotherm
--- NOTE | 2024-05-11 09:36 | P.CONS_ITS ---
History of Present Illness History of present illness: Ms. Garcia is a 79-year-old female with a history of COPD chronic hypoxic respiratory failure at baseline on 2 to 3 L nasal cannula oxygen supplementation, heart failure with preserved ejection fraction presented to the ER with worsening respiratory distress needing increasing oxygen requirements and pulmonary was called for further evaluation and management. Patient blood gas upon admission showed hypercarbic respiratory failure. Patient denies any subjective fever/sleep contact/worsening cough or any productive phlegm prior to admission. Admits gradually worsening respiratory distress and worsening wheezing. [facility] Disclaimer: The information contained in this section may have been updated after the patient was seen, as this information can be updated by other users. Medical History Depression Anxiety Pulmonary embolism Osteoarthritis Skin cancer SOB (shortness of breath) on exertion Abnormal echocardiogram Hyperlipidemia (HFpEF) heart failure with preserved ejection fraction CAD (coronary artery disease) HTN (hypertension) Heart failure Elevated troponin Chronic respiratory failure with hypoxia History of COPD Second hand smoke exposure Surgical History History of left knee replacement Family History No significant family history Social History (Updated 05/10/24 @ 19:38 by Jasmin Ricks RN) Smoking Status: Never smoker alcohol intake: never current occupational status: retired Travel in the last 8 weeks: None Contact w/someone who lives/traveled outside [place] past 30 days?: No Exposure to someone with infectious disease in past 14 days?: No Do you have a fever (greater than 100.4 F or 38 C)?: No Have you tested positive for COVID-19: No Exposed to someone with COVID-19 in past 14 days?: No Do you have a sore throat?: No Do you have a cough?: No Do you have any weakness?: No Are you experiencing any nausea/vomitting?: No Do you have any diarrhea?: No Are you experiencing any unusual bleeding?: No Do you have any muscle aches/pain?: No Do you have any abdominal pain?: No Are you experiencing loss of taste or smell?: No Review of Systems Constitutional Constitutional: Reports anorexia, Reports body ache(s) and Reports fatigue Eyes Eyes: Denies eye discharge, Denies dry eyes, Denies irritation and Denies itchy eyes ENT Ears, Nose, Mouth, and Throat: Denies epistaxis, Denies facial pain, Denies lip swelling and Denies throat swelling *Cardiovascular Cardiovascular: Reports dyspnea, Reports dyspnea on exertion, Reports leg edema and Reports orthopnea *Respiratory Respiratory: Denies change in phlegm color, Reports chest congestion, Reports cough, Reports dyspnea, Reports dyspnea on exertion, Reports excessive phlegm production, Denies hemoptysis, Denies pain on inspiration, Denies pain with cough and Reports wheezing *Gastrointestinal Gastrointestinal: Denies abdominal pain, Denies belching and Denies cramping *Musculoskeletal Musculoskeletal: Reports back pain, Reports myalgias and Reports other (No small joint swelling or Pain) Psychiatric Psychiatric: Denies homicidal ideation and Denies suicidal ideation Endocrine Endocrine: Reports fatigue and Denies heat intolerance Hematologic/Lymphatic Hematologic/Lymphatic: Denies easy bleeding and Denies lymphadenopathy Allergic/Immunologic Allergic/Immunologic: Denies itchy eyes, Denies lip swelling, Denies throat swelling and Reports wheezing Pulmonology Exam Inpatient Vital signs and Labs for Last 24 Hours: Temp Pulse Resp BP Pulse Ox O2 Del Method O2 Flow Rate 99.0 F 89 24 150/59 H 97 Vapotherm 30 05/11/24 08:00 05/11/24 08:00 05/11/24 08:00 05/11/24 08:00 05/11/24 09:01 05/11/24 09:13 05/11/24 09:13 FiO2 55 05/11/24 09:13 Laboratory Results - last 24 hr 05/10/24 13:45: WBC 9.3, RBC 3.21 L, Hgb 8.9 L, Hct 31.7 L, MCV 98.8, MCH 27.7, MCHC 28.1 L, RDW 14.6, Plt Count 178, MPV 10.3, Neut % (Auto) 67.8, Lymph % (Auto) 19.1, Cowley % (Auto) 9.0, Eos % (Auto) 2.2, Baso % (Auto) 1.0, Neut # (Auto) 6.3, Lymph # (Auto) 1.8, Cowley # (Auto) 0.8, Eos # (Auto) 0.2, Baso # (Auto) 0.1, PT 11.6, INR 1.04, APTT 26.2, Sodium 141, Potassium 4.7, Chloride 92 L, Carbon Dioxide 45 H*, Anion Gap 8.7, BUN 14, Creatinine 0.70, Estimated Creat Clear 37, Estimated GFR 81, Est GFR ( Amer) 97, Glucose 130 H, Calcium 8.9, Magnesium 2.0, Total Bilirubin 0.6, AST 19, ALT 14, Alkaline Phosphatase 64, Troponin I 0.01, NT-Pro-B Natriuret Pep 2820 H, Total Protein 6.2 L, Albumin 3.0 L, Globulin 3.2, Albumin/Globulin Ratio 0.9 L 05/10/24 13:56: VBG pH 7.24 L, VBG pCO2 104.3 H, VBG pO2 42.2 H, VBG HCO3 43.2 H , VBG Total CO2 46.4 H, VBG O2 Saturation 73.3 H, VBG Base Excess 15.7 H, VBG Lactic Acid 2.1 H 05/10/24 16:00: VBG pH 7.31, VBG pCO2 81.4 H, VBG pO2 45.3 H, VBG HCO3 40.4 H, V BG Total CO2 42.9 H, VBG O2 Saturation 81.6 H, VBG Base Excess 14.2 H, VBG Lactic Acid 1.4 05/10/24 17:26: Lactate 2.1, Troponin I 0.02 05/10/24 20:19: Lactate 1.2, Troponin I 0.02 05/10/24 21:15: Urine Color Yellow, Urine Appearance Clear, Urine pH 5.5, Ur Specific [place] 1.020, Urine Protein Negative, Urine Glucose (UA) Negative, Urine Ketones Negative, Urine Blood Negative, Urine Nitrate Negative, Urine Bilirubin Negative, Urine Urobilinogen 0.2, Ur Leukocyte Esterase Negative, Urine RBC None, Urine WBC Occasional, Ur Squamous Epith Cells 3-5, Urine Bacteria Trace 05/11/24 05:53: WBC 8.0, RBC 3.20 L, Hgb 8.6 L, Hct 30.1 L, MCV 94.1, MCH 26.9 L , MCHC 28.6 L, RDW 14.7, Plt Count 200, MPV 10.8 H, Neut % (Auto) 82.6 H, Lymph % (Auto) 10.8, Cowley % (Auto) 5.4, Eos % (Auto) 0.0 L, Baso % (Auto) 0.3, Neut # (Auto) 6.6, Lymph # (Auto) 0.9, Cowley # (Auto) 0.4, Eos # (Auto) 0.0, Baso # (Auto) 0.0, Sodium 139, Potassium 3.7 D, Chloride 90 L, Carbon Dioxide 46 H*, Anion Gap 6.7, BUN 18 H D, Creatinine 1.00 D, Estimated Creat Clear 35, E stimated GFR 53 L, Est GFR ( Amer) 65 D, Glucose 161 H D, Calcium 8.8, Magnesium 2.0, Total Bilirubin 0.6, AST 19, ALT 14, Alkaline Phosphatase 89, T otal Protein 6.1 L, Albumin 3.1 L, Globulin 3.0, Albumin/Globulin Ratio 1.0 L, T SH 0.16 L 05/11/24 08:11: VBG pH 7.43 H, VBG pCO2 57.2 H, VBG pO2 75.7 H, VBG HCO3 36.9 H, VBG Total CO2 38.6 H, VBG O2 Saturation 95.3 H, VBG Base Excess 12.5 H, VBG Lactic Acid 1.7 I & O for Labs for Last 24 Hours: Intake & Output 05/08/24 05/09/24 05/10/24 05/11/24 23:59 23:59 23:59 23:59 Intake Total 666.4 / 666.4 Output Total 350 / 350 1550 / 1550 Balance -350 / -320 -883.6 / -883.6 Weight 234 lb 8 oz 235 lb 9.6 oz Constitutional: Present severe distress Head: Present normocephalic and atraumatic ENT: Present normal exam, normal oropharynx and mucous membranes moist Neck: Present normal inspection and full ROM Respiratory: Present respiratory distress, rhonchi, crackles and diminished air movement; Absent wheezes or able to speak in complete sentences Cardiac: Present S1/S2, Tachycardia and radial pulses present GI: Present soft and distention; Absent tenderness or guarding Rectal (female): Present deferred (female): Present deferred Skin: Present intact; Absent cyanosis or jaundice Neuro: Present alert, awake and oriented x 3 Extremities: Present normal inspection and edema; Absent clubbing or cyanosis Psychiatric: Present normal affect and cooperative Meds Home Medications and Allergies Home Medications ?Medication ?Instructions ?Recorded ?Confirmed ?Type amlodipine 5 mg tablet 5 mg PO DAILY 03/12/23 05/10/24 History atenolol 25 mg tablet 25 mg PO DAILY 03/12/23 05/10/24 History donepezil 10 mg tablet 10 mg PO DAILY 03/12/23 05/10/24 History duloxetine 60 mg capsule,delayed 60 mg PO DAILY 03/12/23 05/10/24 History release levothyroxine 125 mcg tablet 125 mcg PO DAILYDM 03/12/23 05/10/24 History memantine 5 mg tablet 5 mg PO BID 10/14/23 05/10/24 History apixaban 5 mg tablet (Eliquis) 5 mg PO BID #180 tabs 11/08/23 05/10/24 Rx alendronate 70 mg tablet 70 mg PO WEEKLY 02/12/24 05/10/24 History buspirone 30 mg tablet 30 mg PO BID 02/12/24 05/10/24 History guaifenesin 600 mg tablet, 600 - 1,200 mg PO BID 02/12/24 05/11/24 History extended release 12 hr albuterol sulfate 90 mcg/actuation 2 puff inhalation Q4HP PRN 02/13/24 05/10/24 History aerosol inhaler (Ventolin HFA) shortness of breath or wheezing budesonide-formoterol HFA 160 2 inh inhalation BID 02/13/24 05/11/24 History mcg-4.5 mcg/actuation aerosol inhaler (Breyna) atorvastatin 40 mg tablet 40 mg PO HS 30 days #30 tabs 02/15/24 05/10/24 Rx hydroxyzine HCl 50 mg tablet 25 - 50 mg PO Q6HP PRN anxiety 03/08/24 05/11/24 History New Prescriptions to Start Prescriptions: Allergies Allergy/AdvReac Type Severity Reaction Status Date / Time sulfamethoxazole (From AdvReac Mild Nausea Verified 04/19/24 13:26 Bactrim) trimethoprim (From Bactrim) AdvReac Mild Nausea Verified 04/19/24 13:26 Results Laboratory Findings 05/11/24 05:53 05/11/24 05:53 PT/INR, D-dimer PT 11.6 seconds (10.1-12.5) 05/10/24 13:45 INR 1.04 (0.9-1.1) 05/10/24 13:45 Abnormal lab findings: Abnormal Labs 05/10/24 05/10/24 05/10/24 13:45 13:56 16:00 RBC 3.21 L Hgb 8.9 L Hct 31.7 L MCH MCHC 28.1 L MPV Neut % (Auto) Eos % (Auto) VBG pH 7.24 L VBG pCO2 104.3 H 81.4 H VBG pO2 42.2 H 45.3 H VBG HCO3 43.2 H 40.4 H VBG Total CO2 46.4 H 42.9 H VBG O2 Saturation 73.3 H 81.6 H VBG Base Excess 15.7 H 14.2 H VBG Lactic Acid 2.1 H Chloride 92 L Carbon Dioxide 45 H* BUN Estimated GFR Glucose 130 H NT-Pro-B Natriuret Pep 2820 H Total Protein 6.2 L Albumin 3.0 L Albumin/Globulin Ratio 0.9 L TSH 05/11/24 05/11/24 05:53 08:11 RBC 3.20 L Hgb 8.6 L Hct 30.1 L MCH 26.9 L MCHC 28.6 L MPV 10.8 H Neut % (Auto) 82.6 H Eos % (Auto) 0.0 L VBG pH 7.43 H VBG pCO2 57.2 H VBG pO2 75.7 H VBG HCO3 36.9 H VBG Total CO2 38.6 H VBG O2 Saturation 95.3 H VBG Base Excess 12.5 H VBG Lactic Acid Chloride 90 L Carbon Dioxide 46 H* BUN 18 H D Estimated GFR 53 L Glucose 161 H D NT-Pro-B Natriuret Pep Total Protein 6.1 L Albumin 3.1 L Albumin/Globulin Ratio 1.0 L TSH 0.16 L Assessment and Plan *Assessment and plan (1) Acute exacerbation of chronic obstructive pulmonary disease: Status: Acute Category: Medical Code(s): J44.1 - Chronic obstructive pulmonary disease with (acute) exacerbation (2) Acute hypercapnic respiratory failure: Status: Acute Category: Medical Code(s): J96.02 - Acute respiratory failure with hypercapnia (3) Acute on chronic hypoxic respiratory failure: Status: Acute Category: Medical Code(s): J96.21 - Acute and chronic respiratory failure with hypoxia (4) Pneumonia: Status: Acute Qualifiers: Pneumonia type: due to unspecified organism Laterality: right Lung location: unspecified part of lung Qualified Code(s): J18.9 - Pneumonia, unspecified organism Category: Medical Code(s): J18.9 - Pneumonia, unspecified organism Plan Ms. Garcia is a 79-year-old female with a history of COPD chronic hypoxic respiratory failure at baseline on 2 to 3 L nasal cannula oxygen supplementation, heart failure with preserved ejection fraction presented to the ER with worsening respiratory distress needing increasing oxygen requirements and pulmonary was called for further evaluation and management. Patient blood gas upon admission showed hypercarbic respiratory failure. Patient denies any subjective fever/sleep contact/worsening cough or any productive phlegm prior to admission. Admits gradually worsening respiratory distress and worsening wheezing. Afebrile. Hemodynamically stable. No evidence of leukocytosis. Comprehensive respiratory viral PCR panel negative blood gas upon admission showed acute on chronic hypercarbic respiratory failure with pH of 7.24 and pCO2 104.3. Subsequent blood gases improved to 7.43 and 57.2. Chest x-ray upon admission interstitial markings right greater than left along with bilateral effusions left greater than right. Right lower lobe medial consolidative changes noted. No significant wheezing noted on auscultation. Crackles and rhonchi. On high flow nasal cannula oxygen supplementation. Plan: Continue high flow nasal oxygen supplementation to maintain O2 saturation goal of 90% wean as tolerated. Initiate levofloxacin 750 mg daily pending culture results we will do sputum induction. DuoNebs every 4 hours along with Pulmicort every 12 scheduled Prednisone 40 mg daily x 5 days Volume optimization as per primary team and cardiology
[2024-05-11] MEDS: LEVOFLOXACIN/D5W 750 MG/150 ML 750 MG/150 ML PIGGYBACK 100 MG IV (10:16)
[2024-05-11] MEDS: BUMETANIDE 10 MG in 0.9 % SODIUM CHLORIDE 60 ML 5 MG IV (10:17)
--- NOTE | 2024-05-11 10:40 | HMH.PTEV ---
Physical Therapy Evaluation Rehab PT IP Evaluation Start: 05/10/24 18:33 Freq: ONCE Status: Active Protocol: Document 05/11/24 10:34 SANJANA (Rec: 05/11/24 10:40 SANJANA [id number]) Subjective/History History History 79-year-old female with history of chronic hypoxemic respiratory failure, COPD, hypertension, HFpEF, obesity, tremors. She presented with confusion and worsening shortness of breath over the past 2 to 3 days. Family is at bedside and helps answer questions. On arrival to the ED, patient hypoxic on initial presentation. Blood gas showed CO2 greater than 100 on VBG with pH of 7.2. Initiated on BiPAP. Chest imaging showing significant pulmonary edema bilaterally with elevated BNP. Medicine consulted for admission and further management of COPD exacerbation and acute on chronic HFpEF along with acute on chronic hypoxemic and hypercapnic respiratory failure. Pt reports she lives with family, ramp to enter the home, and she is generally able to ambulate household distance with RW independently . She requires assistance for all ADLs at baseline, which family was performing prior to adm. Inpatient PT wound orders received due to low Jack Scale score and pt has no wounds noted at this time. Subjective Subjective Pt reports feeling a little better than she did on adm and agrees to OOB mobility this am. [facility] How much help from another person do you currently need... Turning from your back to your side A little while in a flat bed without using bedrails? Moving from lying on back to sitting on A little the side of a flat bed without using bedrails? Moving to and from a bed to a chair ( A little including a wheelchair)? Standing up from a chair using your arms A little ? (e.g., wheelchair, bedside chair) Walking in hospital room? A little Climbing 3-5 steps with a railing? A little Mobility Score 18 Mobility Level [facility] Mobility Calculator Mobility 6 Walk 10 steps or more Rehab PT IP Eval Objective Appearance Patient Behavior Appropriate Patient Orientation Person,Place,Time Difficulty following instructions none Speech Pattern Clear Ambulation Patient Able to Ambulate Yes Ambulation Observation IP General Gait Pattern Observation Shuffling Step Ambulation Distance (feet) 5 Ambulation Assistive Device Rolling Walker Ambulation Ability Contact Guard/Hand Hold Balance Ability to Arise Able, uses arms to help Sitting Balance Steady, safe Standing Balance Steady, wide stance Dynamic Sitting Balance Ability Good Dynamic Standing Balance Ability Fair Transfers Bed Transfer Ability Contact Guard/Hand Hold Chair Transfer Ability Contact Guard/Hand Hold Sit to Stand Bed Transfer Ability Contact Guard/Hand Hold Sit to Stand Chair Transfer Ability Contact Guard/Hand Hold Rehab PT IP prob,goals,plan Problems Date of Evaluation: 05/11/24 PT IP Problems Bed Mobility,Transfers,Gait Rehab Potential Rehab Potential Good Equipment Needs Assistive Devices Rolling / Wheeled Walker Plan PT Intervention Plan Bed Mobility,Transfers,Gait, Therapeutic Exercise PT Plan Frequency Daily Duration LOS Discharge Goals Bed Transfer Ability Supervision/Stand by Sit to Stand Chair Transfer Ability Supervision/Stand by Ambulation Assistive Device Rolling Walker Ambulation Distance (feet) 10 Discharge Plan PT Discharge Plan Pt is currently appropriate to return home with prior level of family assistance reported once medically stable for d/c. Skilled acute therapy is indicated to improve strength and ambulation in order to aid pt return to [facility]. Eval Complexity Eval Charge Codes 40372 - High Complexity PHYSICIAN CERTIFICATION: I certify the specified therapy services for Patito Garcia are required, authorized, and reviewed every 30 days.
--- NOTE | 2024-05-11 10:50 | PC.NURSE ---
1015 called and notified pauly in rt that pt vapo was decreased gby Dr Slaughter to 25/45. pt o2 sats dropped to 84%. pt breathing through nose, but would periodically grunt with respirations. 1020 Pauly states per annangi increase to 35/50. pt still noted to have brief periods of desaturation
--- NOTE | 2024-05-11 13:31 | HMH.OTEV ---
OT Inpatient Evaluation Rehab OT IP Evaluation Start: 05/10/24 18:33 Freq: ONCE Status: Active Protocol: Document 05/11/24 13:21 LAVONNE (Rec: 05/11/24 13:31 LAVONNE [id number]) Rehab OT IP Assessment Subjective History Ms. Garcia is an 79-year-old female with history of chronic hypoxemic respiratory failure , COPD, hypertension, HFpEF, obesity, tremors. She presented with confusion and worsening shortness of breath over the past 2 to 3 days. Family is at bedside and helps answer questions. On arrival to the ED, patient hypoxic on initial presentation. Blood gas showed CO2 greater than 100 on VBG with pH of 7.2. Initiated on BiPAP. Chest imaging showing significant pulmonary edema bilaterally with elevated BNP. Medicine consulted for admission and further management of COPD exacerbation and acute on chronic HFpEF along with acute on chronic hypoxemic and hypercapnic respiratory failure Evaluation after arriving to the floor, patient is alert and oriented x 2. History supplemented by family at bedside. Has shown improvement in her blood gas with pH normal on VBG at 7.31. pCO2 80. Patient hungry and wanting to eat. Refusing to wear the mask any further. Transition to Vapotherm. White count normal at 9.3. Kidney function at baseline with BUN 14, creatinine 0.7. Has significant edema on exam. Has not had significant urine output since diuretics administered in the ED. Denies chest pain. Denies significant confusion. Denies nausea or vomiting. Does report she has not been taking her diuretics due to them making her pee regularly. Patient lives at home with family with 1 story home with 1 [address]. Patient uses a RW for transfers and requires 1 assist with ADLs. Family assist with ADLs. Subjective I can try to get up. Patient completed bed mobility with Min A and CGA for transfers for OOB tasks with usage of RW. Left Patient sitting upright in recliner at end of session. Objective Patient Orientation Person,Place,Name,Age,Birthday ,Year Right Upper Extremity Gross ROM WFL Left Upper Extremity Gross ROM WFL Bed Mobility bed mobility - supine/sit Assist Level Minimal x 1 (25% assist) Transfer Training Sit/Stand Transfer Assist Level Contact Guard/Hand Hold Chair Transfer Ability Contact Guard/Hand Hold Chair Transfer Technique Stand Step Pivot Chair Transfer Assistive Devices Rolling Walker Rehab OT IP prob,goals,plan Problems Date of Evaluation: 05/11/24 OT IP Problems Bed Mobility,Transfers,Balance ,Self care,Safety Rehab Potential Rehab Potential Good Equipment Needs Assistive Devices Rolling / Wheeled Walker Plan OT intervention Plan Bed Mobility,Transfers,Balance ,Self care,Safety,Therapeutic Exercise OT Plan Frequency Daily Duration LOS Discharge Goals Bed Mobility Ability Assistance x1 Chair Transfer Ability Contact Guard/Hand Hold Chair Transfer Technique Sit to/from Ambulatory Chair Transfer Assistive Devices Rolling Walker Discharge Plan OT Discharge Plan Patient to continue skilled OT services while here at [facility] to improve time OOB, overall strength and endurance. Recommend patient to return home with family. Eval Complexity Eval Charge Codes 97794 - Low Complexity PHYSICIAN CERTIFICATION: I certify the specified therapy services for Patito Garcia are required, authorized, and reviewed every 30 days.
[2024-05-11] MEDS: SODIUM CHLORIDE 3% 15ML NEB 3 ML IH (14:23)
--- NOTE | 2024-05-11 15:12 | EXP.CARD.CON ---
History of Present Illness History of Present Illness Consult date: 05/11/24 Requesting physician: Robert Gan Consult reason: shortness of breath Chief complaint: SOA History of present illness: This is an 79-year-old white female who presented to the emergency department with complaints of shortness of breath and edema. The patient states that she has been having worsening shortness of breath for approximately 2 to 3 days prior to admission. This was associated with bilateral lower extremity edema. The patient states that she was just very weak and tired with her shortness of breath and did not feel well. She denies any chest pain or pressure. She states her shortness of breath is associated with orthopnea. She denies any fever, chills, nausea, vomiting or diarrhea. The patient was found to have an acute on chronic exacerbation of her HFpEF and a chest x-ray showing worsening pulmonary edema. The patient is also being treated for a COPD exacerbation. [facility] Disclaimer: The information contained in this section may have been updated after the patient was seen, as this information can be updated by other users. Medical History Acute on chronic heart failure with preserved ejection fraction (HFpEF) Depression Anxiety Pulmonary embolism Osteoarthritis Skin cancer SOB (shortness of breath) on exertion Abnormal echocardiogram Hyperlipidemia (HFpEF) heart failure with preserved ejection fraction CAD (coronary artery disease) HTN (hypertension) Heart failure Elevated troponin Chronic respiratory failure with hypoxia History of COPD Second hand smoke exposure Surgical History History of left knee replacement Family History No significant family history Social History (Updated 05/10/24 @ 19:38 by Jasmin Ricks RN) Smoking Status: Never smoker alcohol intake: never current occupational status: retired Travel in the last 8 weeks: None Contact w/someone who lives/traveled outside [place] past 30 days?: No Exposure to someone with infectious disease in past 14 days?: No Do you have a fever (greater than 100.4 F or 38 C)?: No Have you tested positive for COVID-19: No Exposed to someone with COVID-19 in past 14 days?: No Do you have a sore throat?: No Do you have a cough?: No Do you have any weakness?: No Are you experiencing any nausea/vomitting?: No Do you have any diarrhea?: No Are you experiencing any unusual bleeding?: No Do you have any muscle aches/pain?: No Do you have any abdominal pain?: No Are you experiencing loss of taste or smell?: No Review of Systems Review of Systems Review of systems:: pertinent systems reviewed and negative unless documented below Constitutional Constitutional: Reports system reviewed and no additional complaints, except as documented, Reports fatigue and Reports lethargy Eyes Eyes: Reports system reviewed and no additional complaints, except as documented ENT Ears, Nose, Mouth, and Throat: Reports system reviewed and no additional complaints, except as documented *Cardiovascular Cardiovascular: Reports system reviewed and no additional complaints, except as documented, Denies chest pain, Reports dyspnea, Reports dyspnea on exertion, Reports edema, Reports leg edema and Reports pedal edema *Respiratory Respiratory: Reports system reviewed and no additional complaints, except as documented, Reports dyspnea and Reports dyspnea on exertion *Gastrointestinal Gastrointestinal: Reports system reviewed and no additional complaints, except as documented *Genitourinary Genitourinary: Reports system reviewed and no additional complaints, except as documented *Musculoskeletal Musculoskeletal: Reports system reviewed and no additional complaints, except as documented Integumentary/Breasts Skin/Breast: Reports system reviewed and no additional complaints, except as documented *Neurologic Neurologic: Reports system reviewed and no additional complaints, except as documented Psychiatric Psychiatric: Reports system reviewed and no additional complaints, except as documented Endocrine Endocrine: Reports system reviewed and no additional complaints, except as documented and Reports fatigue Hematologic/Lymphatic Hematologic/Lymphatic: Reports system reviewed and no additional complaints, except as documented Allergic/Immunologic Allergic/Immunologic: Reports system reviewed and no additional complaints, except as documented Exam Data for Last 24 hours Vital signs and Labs for Last 24 Hours: Temp Pulse Resp BP Pulse Ox O2 Del Method O2 Flow Rate 98.4 F 95 H 28 H 148/62 H 93 L Vapotherm 30 05/11/24 12:00 05/11/24 14:25 05/11/24 14:25 05/11/24 14:00 05/11/24 14:25 05/11/24 14:25 05/11/24 14:25 FiO2 50 05/11/24 14:25 Laboratory Results - last 24 hr 05/10/24 16:00: VBG pH 7.31, VBG pCO2 81.4 H, VBG pO2 45.3 H, VBG HCO3 40.4 H, VBG Total CO2 42.9 H, VBG O2 Saturation 81.6 H, VBG Base Excess 14.2 H, VBG Lactic Acid 1.4 05/10/24 17:26: Lactate 2.1, Troponin I 0.02 05/10/24 18:34: Chlamy pneumoniae PCR Not detected, Adenovirus (PCR) Not detected, B. pertussis DNA (PCR) Not detected, Coronavirus OC43 (PCR) Not detected, Coronavirus HKU1 (PCR) Not detected, Coronavirus 229E (PCR) Not detected, SARS-CoV-2 (PCR) Not detected, Coronavirus NL63 (PCR) Not detected, Human Metapneumovir PCR Not detected, Influenza A (H1) PCR Not detected, Influ A (H1N1/09) PCR Not detected, Influenza A (H3) PCR Not detected, Influenza Type A (PCR) Not detected, Influenza Type B (PCR) Not detected, M. pneumoniae (PCR) Not detected, Parainfluenza 1 (PCR) Not detected, Parainfluenza 2 (PCR) Not detected, Parainfluenza 3 (PCR) Not detected, Parainfluenza 4 (PCR) Not detected, RSV (PCR) Not detected, Entero/Rhino (PCR) Not detected 05/10/24 20:19: Lactate 1.2, Troponin I 0.02 05/10/24 21:15: Urine Color Yellow, Urine Appearance Clear, Urine pH 5.5, Ur Specific Corinne 1.020, Urine Protein Negative, Urine Glucose (UA) Negative, Urine Ketones Negative, Urine Blood Negative, Urine Nitrate Negative, Urine Bilirubin Negative, Urine Urobilinogen 0.2, Ur Leukocyte Esterase Negative, Urine RBC None, Urine WBC Occasional, Ur Squamous Epith Cells 3-5, Urine Bacteria Trace 05/11/24 05:53: WBC 8.0, RBC 3.20 L, Hgb 8.6 L, Hct 30.1 L, MCV 94.1, MCH 26.9 L, MCHC 28.6 L, RDW 14.7, Plt Count 200, MPV 10.8 H, Neut % (Auto) 82.6 H, Lymph % (Auto) 10.8, Bollinger % (Auto) 5.4, Eos % (Auto) 0.0 L, Baso % (Auto) 0.3, Neut # (Auto) 6.6, Lymph # (Auto) 0.9, Bollinger # (Auto) 0.4, Eos # (Auto) 0.0, Baso # (Auto) 0.0, Sodium 139, Potassium 3.7 D, Chloride 90 L, Carbon Dioxide 46 H*, Anion Gap 6.7, BUN 18 H D, Creatinine 1.00 D, Estimated Creat Clear 35, Estimated GFR 53 L, Est GFR ( Amer) 65 D, Glucose 161 H D, Calcium 8.8, Magnesium 2.0, Total Bilirubin 0.6, AST 19, ALT 14, Alkaline Phosphatase 89, Total Protein 6.1 L, Albumin 3.1 L, Globulin 3.0, Albumin/Globulin Ratio 1.0 L, TSH 0.16 L 05/11/24 08:11: VBG pH 7.43 H, VBG pCO2 57.2 H, VBG pO2 75.7 H, VBG HCO3 36.9 H, VBG Total CO2 38.6 H, VBG O2 Saturation 95.3 H, VBG Base Excess 12.5 H, VBG Lactic Acid 1.7 I & O for Last 24 hours: Intake & Output 05/08/24 05/09/24 05/10/24 05/11/24 23:59 23:59 23:59 23:59 Intake Total 823.1 / 823.1 Output Total 350 / 350 1550 / 1550 Balance -350 / -320 -726.9 / -726.9 Weight 234 lb 8 oz 235 lb 9.6 oz Microbiology Reports for the Last 24 Hours: Microbiology 05/10/24 14:09 Blood Blood Culture - Preliminary NO GROWTH AFTER 24 HOURS 05/10/24 14:09 Blood Blood Culture - Preliminary Constitutional Constitutional: no acute distress and morbidly obese *Routine HEENT Exam Head: Present normocephalic and atraumatic ENT: Present mucous membranes moist *Routine Neck Exam Neck: Present supple, full ROM and normal carotid upstroke; Absent JVD, carotid bruit or lymphadenopathy *Routine Respiratory Exam Respiratory: Present rales, rhonchi, wheezes, able to speak in complete sentences and symmetric chest movement *Routine Cardiovascular Exam Cardiovascular: Present RRR, Normal S1 and Normal S2; Absent murmur or gallop *Routine Abdominal Exam Abdominal: Present soft and normoactive bowel sounds; Absent tenderness, distended or organomegaly *Routine Extremities Exam Extremities: Present full ROM, pulses intact and normal capillary refill; Absent cyanosis, clubbing or edema *Routine Skin Exam Skin: Present intact and warm; Absent erythema *Routine Neurological Exam Neurological: Present alert, oriented X3 and CN II-XII intact; Absent sensory deficit or motor deficit Routine Psychiatric Exam Psychiatric: Present normal affect Meds Home Medications and Allergies Home Medications ?Medication ?Instructions ?Recorded ?Confirmed ?Type amlodipine 5 mg tablet 5 mg PO DAILY 03/12/23 05/10/24 History atenolol 25 mg tablet 25 mg PO DAILY 03/12/23 05/10/24 History donepezil 10 mg tablet 10 mg PO DAILY 03/12/23 05/10/24 History duloxetine 60 mg capsule,delayed 60 mg PO DAILY 03/12/23 05/10/24 History release levothyroxine 125 mcg tablet 125 mcg PO DAILYDM 03/12/23 05/10/24 History memantine 5 mg tablet 5 mg PO BID 10/14/23 05/10/24 History apixaban 5 mg tablet (Eliquis) 5 mg PO BID #180 tabs 11/08/23 05/10/24 Rx alendronate 70 mg tablet 70 mg PO WEEKLY 02/12/24 05/10/24 History buspirone 30 mg tablet 30 mg PO BID 02/12/24 05/10/24 History guaifenesin 600 mg tablet, 600 - 1,200 mg PO BID 02/12/24 05/11/24 History extended release 12 hr albuterol sulfate 90 mcg/actuation 2 puff inhalation Q4HP PRN 02/13/24 05/10/24 History aerosol inhaler (Ventolin HFA) shortness of breath or wheezing budesonide-formoterol HFA 160 2 inh inhalation BID 02/13/24 05/11/24 History mcg-4.5 mcg/actuation aerosol inhaler (Breyna) atorvastatin 40 mg tablet 40 mg PO HS 30 days #30 tabs 02/15/24 05/10/24 Rx hydroxyzine HCl 50 mg tablet 25 - 50 mg PO Q6HP PRN anxiety 03/08/24 05/11/24 History New Prescriptions to Start Prescriptions: Allergies Allergy/AdvReac Type Severity Reaction Status Date / Time sulfamethoxazole (From AdvReac Mild Nausea Verified 04/19/24 13:26 Bactrim) trimethoprim (From Bactrim) AdvReac Mild Nausea Verified 04/19/24 13:26 Assessment and Plan *Assessment and plan (1) Acute on chronic heart failure with preserved ejection fraction (HFpEF): Status: Acute Category: Medical Code(s): I50.33 - Acute on chronic diastolic (congestive) heart failure (2) Acute hypercapnic respiratory failure: Status: Acute Category: Medical Code(s): J96.02 - Acute respiratory failure with hypercapnia (3) Acute exacerbation of chronic obstructive pulmonary disease: Status: Acute Category: Medical Code(s): J44.1 - Chronic obstructive pulmonary disease with (acute) exacerbation (4) HTN (hypertension): Status: Acute Qualifiers: Hypertension type: primary hypertension Qualified Code(s): I10 - Essential (primary) hypertension Category: Medical Code(s): I10 - Essential (primary) hypertension (5) Hyperlipidemia: Status: Acute Qualifiers: Hyperlipidemia type: mixed hyperlipidemia Qualified Code(s): E78.2 - Mixed hyperlipidemia Category: Medical Code(s): E78.5 - Hyperlipidemia, unspecified (6) SOB (shortness of breath) on exertion: Status: Acute Category: Medical Code(s): R06.02 - Shortness of breath Plan Plan: 1. The patient was admitted to the hospital with acute on chronic HFpEF. The patient is currently being diuresed with IV Bumex drip. Will increase her IV Bumex drip to 1 mg an hour for continued diuresis. 2. Will add Diamox 500 mg p.o. twice daily for continued diuresis as well. 3. Will plan to start her on Entresto tomorrow for her HFpEF as long as her blood pressure and renal function will tolerate. 4. The patient is also having a COPD exacerbation. Pulmonology has been consulted. Will defer. 5. Patient had recent cardiac MRI which shows a normal ejection fraction. There is mild reduction in her right ventricular function with dilated pulmonary arteries consistent with underlying pulmonary disease. As mentioned above pulmonology has been consulted. 6. She is anemic. Will give her IV iron today. 7. She denies any chest pain or pressure. Her troponins are negative. No plans for invasive left cardiac catheterization at this time. 8. Blood pressure is acceptable. 9. LDL goal is less than 100. Her LDL is 71. She is on a statin. 10. The patient has a history of bilateral pulmonary emboli that were unprovoked. She is on Eliquis. 11. Further recommendations will be made pending the patient's response to treatment. Thank you for the opportunity to participate in the care of this patient. All recommendations and orders are per Dr. Watson.
[2024-05-11] MEDS: IRON SUCROSE COMPLEX 200 MG in 0.9 % SODIUM CHLORIDE 100 ML 220 MG IV (15:46)
--- NOTE | 2024-05-11 18:39 | PC.NURSE ---
At start of shift pt carter catheter was noted to be leaking, evidenced by the bed being wet with urine. 5 ml of saline added to balloon for a total of 15ml. pt carter was again noted to be leaking this evening. 16fr carter cath was removed and replaced with a 18fr carter cath. pt tolerated well
[2024-05-11] MEDS: BUMETANIDE 10 MG in 0.9 % SODIUM CHLORIDE 60 ML IV (18:53)
--- NOTE | 2024-05-11 19:23 | P.PN_ITS ---
Subjective *Date: 05/11/24 *Time: 22:33 Interval history: Patient feeling little better this morning. Tolerating Vapotherm 35 L, 60%. Afebrile. Feeling more anxious, requesting her hydroxyzine. No nausea or vomiting. Alert and oriented x 2. Medical Exam Vital signs and Labs for Last 24 Hours: Vital Signs Temp Pulse Pulse Resp BP Pulse Ox O2 Del Method 05/11/24 18:43 Vapotherm 05/11/24 18:00 102 H 20 123/76 90 L Vapotherm 05/11/24 17:45 92 L Vapotherm 05/11/24 17:18 90 05/11/24 17:18 92 H 05/11/24 17:00 Vapotherm 05/11/24 16:00 90 05/11/24 16:00 98 H 26 H 161/64 H 90 L Vapotherm 05/11/24 15:56 98.5 F 05/11/24 15:00 Vapotherm 05/11/24 14:25 95 H 28 H 05/11/24 14:25 96 H 05/11/24 14:25 95 H 05/11/24 14:25 93 L Vapotherm 05/11/24 14:00 92 L Vapotherm 05/11/24 14:00 94 H 19 148/62 H 98 Vapotherm 05/11/24 13:00 Vapotherm 05/11/24 12:00 101 H 05/11/24 12:00 98.4 F 99 H 22 154/53 H 99 Vapotherm 05/11/24 11:00 94 H 20 123/55 L 97 Vapotherm 05/11/24 11:00 Vapotherm 05/11/24 10:02 82 05/11/24 10:02 84 05/11/24 10:02 92 L Vapotherm 05/11/24 10:00 84 20 153/59 H 100 Vapotherm 05/11/24 09:13 Vapotherm 05/11/24 09:01 97 Vapotherm 05/11/24 09:00 Vapotherm 05/11/24 08:00 99.0 F 89 24 150/59 H 94 L Vapotherm 05/11/24 08:00 91 H 05/11/24 08:00 93 L Vapotherm 05/11/24 06:47 Vapotherm 05/11/24 06:01 103 H 05/11/24 06:01 95 H 05/11/24 06:01 95 Vapotherm 05/11/24 06:00 92 H 24 144/56 H 98 Vapotherm 05/11/24 05:00 Vapotherm 05/11/24 04:00 102 H 05/11/24 04:00 98.4 F 99 H 20 174/55 H 96 Vapotherm 05/11/24 03:43 Vapotherm 05/11/24 03:24 92 L Vapotherm 05/11/24 03:08 97 H 05/11/24 03:08 98 H 05/11/24 03:00 Vapotherm 05/11/24 02:00 102 H 22 133/67 91 L Vapotherm 05/11/24 00:56 Vapotherm 05/11/24 00:31 152/66 H 05/11/24 00:00 96 H 05/11/24 00:00 98.4 F 98 H 22 170/69 H 98 Vapotherm 05/10/24 23:00 Vapotherm 05/10/24 22:10 90 05/10/24 22:10 91 H 05/10/24 22:00 91 H 14 144/47 H 97 Vapotherm 05/10/24 21:00 Vapotherm 05/10/24 20:00 90 05/10/24 20:00 94 L Vapotherm 05/10/24 20:00 98.0 F 93 H 18 154/55 H 92 L Vapotherm O2 Flow Rate FiO2 05/11/24 18:43 35 05/11/24 18:00 35 50 05/11/24 17:45 35 50 05/11/24 17:18 05/11/24 17:18 05/11/24 17:00 35 05/11/24 16:00 05/11/24 16:00 35 50 05/11/24 15:56 05/11/24 15:00 35 05/11/24 14:25 05/11/24 14:25 05/11/24 14:25 05/11/24 14:25 30 50 05/11/24 14:00 35 50 05/11/24 14:00 35 50 05/11/24 13:00 35 05/11/24 12:00 05/11/24 12:00 35 50 04/03/25 11:00 35 50 05/11/24 11:00 35 05/11/24 10:02 05/11/24 10:02 05/11/24 10:02 25 45 05/11/24 10:00 30 55 05/11/24 09:13 30 55 05/11/24 09:01 35 60 05/11/24 09:00 30 05/11/24 08:00 35 60 05/11/24 08:00 05/11/24 08:00 35 60 05/11/24 06:47 35 05/11/24 06:01 05/11/24 06:01 05/11/24 06:01 40 65 05/11/24 06:00 35 60 05/11/24 05:00 40 05/11/24 04:00 05/11/24 04:00 40 75 05/11/24 03:43 40 05/11/24 03:24 40 65 05/11/24 03:08 05/11/24 03:08 05/11/24 03:00 40 05/11/24 02:00 40 65 05/11/24 00:56 40 05/11/24 00:31 05/11/24 00:00 05/11/24 00:00 40 75 05/10/24 23:00 40 05/10/24 22:10 05/10/24 22:10 05/10/24 22:00 40 75 05/10/24 21:00 40 05/10/24 20:00 05/10/24 20:00 40 65 05/10/24 20:00 40 75 Intake and Output 05/11/24 05/11/24 05/11/24 07:59 15:59 23:59 Intake Total 58 / 1460.175 1880.933 / 1630.100 431.167 / 1630.100 Output Total 1050 / 3050 1400 / 3050 600 / 3050 Balance -992 / -1419.900 -259.067 / -1419.900 -168.833 / -1419.900 Intake: Intake, Oral Amount 935 / 1235 300 / 1235 Intake, Total IV Amount 58 / 395.100 205.933 / 395.100 131.167 / 395.100 Bumetanide 10 mg In 0.9 % 58 Sodium Chloride 60 ml @ 10 mls/ hr IV .Q10H [facility] Rx#:[id number] Iron Sucrose Complex 200 mg In 100 / 100 0.9 % Sodium Chloride 100 ml @ 220 mls/hr IV ONCE ONE Rx#: [id number] Levofloxacin/D5w 750 mg/150 ml 134 / 134 750 mg In 150 ml @ 100 mls/hr IV Q48H [facility] Rx#:[id number] Output: Output, Urine Amount 1050 / 3050 1400 / 3050 600 / 3050 Other: Number of Unmeasured Voids 0 0 0 Weight 106.866 kg Patient Weight 05/11/24 23:59 Weight 106.866 kg Laboratory Results - last 24 hr 05/10/24 18:34: Chlamy pneumoniae PCR Not detected, Adenovirus (PCR) Not detected, B. pertussis DNA (PCR) Not detected, Coronavirus OC43 (PCR) Not detected, Coronavirus HKU1 (PCR) Not detected, Coronavirus 229E (PCR) Not detected, SARS-CoV-2 (PCR) Not detected, Coronavirus NL63 (PCR) Not detected, Human Metapneumovir PCR Not detected, Influenza A (H1) PCR Not detected, Influ A (H1N1/09) PCR Not detected, Influenza A (H3) PCR Not detected, Influenza Type A (PCR) Not detected, Influenza Type B (PCR) Not detected, M. pneumoniae (PCR) Not detected, Parainfluenza 1 (PCR) Not detected, Parainfluenza 2 (PCR) Not detected, Parainfluenza 3 (PCR) Not detected, Parainfluenza 4 (PCR) Not detected, RSV (PCR) Not detected, Entero/Rhino (PCR) Not detected 05/10/24 20:19: Lactate 1.2, Troponin I 0.02 05/10/24 21:15: Urine Color Yellow, Urine Appearance Clear, Urine pH 5.5, Ur Specific [place] 1.020, Urine Protein Negative, Urine Glucose (UA) Negative, Urine Ketones Negative, Urine Blood Negative, Urine Nitrate Negative, Urine Bilirubin Negative, Urine Urobilinogen 0.2, Ur Leukocyte Esterase Negative, Urine RBC None, Urine WBC Occasional, Ur Squamous Epith Cells 3-5, Urine Bacteria Trace 05/11/24 05:53: WBC 8.0, RBC 3.20 L, Hgb 8.6 L, Hct 30.1 L, MCV 94.1, MCH 26.9 L , MCHC 28.6 L, RDW 14.7, Plt Count 200, MPV 10.8 H, Neut % (Auto) 82.6 H, Lymph % (Auto) 10.8, [place] % (Auto) 5.4, Eos % (Auto) 0.0 L, Baso % (Auto) 0.3, Neut # (Auto) 6.6, Lymph # (Auto) 0.9, [place] # (Auto) 0.4, Eos # (Auto) 0.0, Baso # (Auto) 0.0, Sodium 139, Potassium 3.7 D, Chloride 90 L, Carbon Dioxide 46 H*, Anion Gap 6.7, BUN 18 H D, Creatinine 1.00 D, Estimated Creat Clear 35, Estimated GFR 53 L, Est GFR ( Amer) 65 D, Glucose 161 H D, Calcium 8.8, Magnesium 2.0, Total Bilirubin 0.6, AST 19, ALT 14, Alkaline Phosphatase 89, Total Protein 6.1 L, Albumin 3.1 L, Globulin 3.0, Albumin/Globulin Ratio 1.0 L, TSH 0.16 L 05/11/24 08:11: VBG pH 7.43 H, VBG pCO2 57.2 H, VBG pO2 75.7 H, VBG HCO3 36.9 H, VBG Total CO2 38.6 H, VBG O2 Saturation 95.3 H, VBG Base Excess 12.5 H, VBG Lactic Acid 1.7 I & O for Labs for Last 24 Hours: Intake & Output 05/08/24 05/09/24 05/10/24 05/11/24 23:59 23:59 23:59 23:59 Intake Total 1630.100 / 1630.100 Output Total 350 / 350 3050 / 3050 Balance -350 / -320 -1419.900 / -1419.900 Weight 106.367 kg 106.866 kg Microbiology Reports for the Last 24 Hours: Microbiology 05/10/24 14:09 Blood Blood Culture - Preliminary NO GROWTH AFTER 24 HOURS 05/10/24 14:09 Blood Blood Culture - Preliminary Constitutional: Present mild distress, morbidly obese, chronically ill appearing and cooperative Head: Present atraumatic and normocephalic ENT: Present normal exam Respiratory: Present prolonged expiratory phase, crackles and diminished air movement; Absent rhonchi or wheezes Cardiac: Present Reg Rate and Rhythm GI: Present soft and normal bowel sounds; Absent distention or tenderness Extremities: Present normal inspection, full ROM and edema (2+ to thighs) Skin: Present intact; Absent erythema Neuro: Present Grossly Intact, alert, awake and moves all extremities Assessment and Plan *Assessment and plan (1) Respiratory failure with hypoxia and hypercapnia: Status: Acute Qualifiers: Chronicity: acute on chronic Qualified Code(s): J96.21 - Acute and chronic respiratory failure with hypoxia; J96.22 - Acute and chronic respiratory failure with hypercapnia Category: Medical Code(s): J96.91 - Respiratory failure, unspecified with hypoxia; J96.92 - Respiratory failure, unspecified with hypercapnia (2) Metabolic encephalopathy: Status: Acute Category: Medical Code(s): G93.41 - Metabolic encephalopathy (3) Pneumonia: Status: Acute Qualifiers: Laterality: right Lung location: unspecified part of lung Pneumonia type: due to unspecified organism Qualified Code(s): J18.9 - Pneumonia, unspecified organism Category: Medical Code(s): J18.9 - Pneumonia, unspecified organism (4) Bilateral pulmonary embolism: Status: Acute Category: Medical Code(s): I26.99 - Other pulmonary embolism without acute cor pulmonale (5) Acute on chronic hypoxic respiratory failure: Status: Acute Category: Medical Code(s): J96.21 - Acute and chronic respiratory failure with hypoxia (6) COPD exacerbation: Status: Acute Category: Medical Code(s): J44.1 - Chronic obstructive pulmonary disease with (acute) exacerbation (7) Acute exacerbation of chronic obstructive pulmonary disease: Status: Acute Category: Medical Code(s): J44.1 - Chronic obstructive pulmonary disease with (acute) exacerbation (8) (HFpEF) heart failure with preserved ejection fraction: Status: Acute Qualifiers: Heart failure chronicity: acute on chronic Qualified Code(s): I50.33 - Acute on chronic diastolic (congestive) heart failure Category: Medical Code(s): I50.30 - Unspecified diastolic (congestive) heart failure (9) Obesity: Status: Acute Qualifiers: Body mass index: unspecified BMI Obesity classification: adult class 1 (BMI 30 - 34.9) Obesity type: due to excess calories Serious obesity comorbidity presence: without serious comorbidity Qualified Code(s): E66.811 - Obesity, class 1; E66.09 - Other obesity due to excess calories Category: Medical Code(s): E66.9 - Obesity, unspecified Plan Patito Garcia is an 79-year-old female with a medical history significant for COPD on home O2, hypertension, pulmonary embolism, hypertension, dementia, anxiety/depression, hypothyroidism who presents with shortness of breath, suspected confusion, worsening symptoms over the past 2 to 3 days. Discussed case with ER physician, request admission for further management of COPD and heart failure exacerbation. I agreed to admit for further care. Admitted to stepdown. Tolerating Vapotherm. Necessitating inpatient care. Pulmonology and cardiology evaluating this morning. Continues to require patient management for aggressive fluid management. Problems addressed as follows: #Acute metabolic encephalopathy, resolved #Acute on chronic hypoxic, hypercapnic respiratory failure #Acute COPD exacerbation #Community-acquired pneumonia ?Morning VBG improved with pH 7.43, pCO2 57. Continues to appear compensated with mixed respiratory and metabolic acid-base disorder. Bicarb 46. -DuoNebs every 4 hours scheduled. budesonide twice daily -Discontinue home Trelegy, will resume prior to discharge -Comprehensive respiratory panel negative -White count normal at 8, does not appear to be infectious. - Continue high flow supplemental oxygen to maintain sats greater than 90%. -Pulmonology recommends initiating Levaquin 700 mg daily pending cultures. Continue DuoNebs every 4 hours along with Pulmicort twice daily. Prednisone 40 mg daily x 5 days. #Acute on chronic HFpEF -Initial troponin 0.01, 3-hour troponin 0.02. ?BNP elevated at 2800. Significant pulmonary edema per my review of chest x-ray bilaterally on imaging. Also has 3+ edema in her legs. -Discussed case with cardiology, recommend adding Diamox 500 mg twice daily. Continue Bumex drip with increased to 1 mg/h. Improved response. Negative at least 1.4 L this morning -Echo reviewed from February shows elevated RVSP. EF appears preserved. -Continue Lipitor 40 mg nightly. Will hold on blood pressure meds pending med review. - Consider initiating Entresto tomorrow for HFpEF. -Potassium 3.7, magnesium 2.0, kidney function normal with BUN 18, creatinine 1 Anemia: Recommend 1 dose Venofer 200 mg IV once #Falls at home #Physical deconditioning - PT/OT consulted, appreciate recommendations in the morning. Previously recommended SNF placement at last admission. #Chronic pulmonary embolism: Resume home Eliquis 5 mg twice daily. #Hypertension: Holding blood pressure medication at this time, will evaluate home regimen and consider resuming in the morning. Patient normotensive #Dementia: resumed home donepezil and memantine #Anxiety/depression: Resumed home buspirone, duloxetine. #Hypothyroidism: Resumed home levothyroxine 125 mcg. TSH well-controlled at 0.16 Obesity complicates all aspects of her care. Concern for obesity hypoventilation component to her respiratory failure. Full code DVT prophylaxis Eliquis
[2024-05-11] MEDS: DONEPEZIL 10MG TAB 10 MG PO (20:32)
[2024-05-11] MEDS: acetaZOLAMIDE 250 MG TABLET 500 MG PO (20:33)
[2024-05-11] MEDS: ATORVASTATIN 40MG TABLET 40 MG PO (20:33)
--- NOTE | 2024-05-11 23:11 | ECG_ITS ---
APPROVED REPORT Exam: Resting ECG HR:148 bpm ECG Measurements Heart Rate 148 AXES QRSd 91 QRS 73 QT 225 T -31 QTc 310 Conclusion ATRIAL FLUTTER/TACHYCARDIA WITH RAPID VENTRICULAR RESPONSE POSSIBLE RIGHT VENTRICULAR CONDUCTION DELAY [RSR (QR) IN V1/V2] LEFT VENTRICULAR HYPERTROPHY AND ST-T CHANGE [VOLTAGE CRITERIA PLUS ST/T ABNORMALITY] ABNORMAL ECG UNCONFIRMED REPORT Electronically signed by : Mike Estrada MD 05/12/2024 10:14:36
[2024-05-11] MEDS: METOPROLOL TARTRATE 5MG/5ML VIAL 5 MG IV (23:19)
[2024-05-11] MEDS: METOPROLOL TARTRATE 25MG TABLET 12.5 MG PO (23:36)
--- NOTE | 2024-05-11 23:37 | PC.NURSE ---
nursing staff notified provider Rebeca REBOLLEDO about heart rate changes and orders were received and followed. will continue to monitor pt, provider okay with HR staying under 120, will let her know if patient continues to have heart rate greater then 120.
[2024-05-12] VITALS (19 sets, daily range): BP systolic 111–158; BP diastolic 54–104; PULSE 63–144; RESP 17–28; TEMP 36.7–37.1; O2SAT 92–100; BMI 41.3; BMI 41.2
[2024-05-12] MEDS: dilTIAZem 25MG/5ML VIAL 10 MG IV (00:09)
[2024-05-12] MEDS: dilTIAZem HCL 100 MG in 0.9 % SODIUM CHLORIDE 100 ML IV (00:09)
--- NOTE | 2024-05-12 00:17 | PC.NURSE ---
provider was contacted again for increasing HR, orders to start diltiazem gtt and bolus, both were administered, gtt started at 5/hr per protocol and bolus of 10mg was given to patient. Tolerating well, HR after administration 105-115.
[2024-05-12 01:00] LABS: Blood Urea Nitrogen 19 mg/dl (7-17); Calcium 8.2 mg/dl (8.4-10.2); Chloride 83 mmol/L (98-107); Creatinine Clearance Estimated 30 mL/min (50-200); Estimated Glomerular Filt Rate 43 ml/min (>60); GFR (African American) 52 ML/MIN (>60); Glucose 135 mg/dl (74-100); Magnesium 2.1 mg/dl (1.6-2.3); Potassium 3.3 mmoL/L (3.5-5.1); Sodium 137 mmol/L (136-145)
[2024-05-12 01:07] LABS: Anion Gap 8.3 mEq/L (5-15); Carbon Dioxide 49 mmol/L (22.0-30.0)
[2024-05-12] MEDS: IPRATROPIUM BROMIDE 0.5 MG/2.5ML SOLUTION IH ×6 (01:55→21:51)
[2024-05-12] MEDS: LEVALBUTEROL 1.25MG/3ML NEB 1.25 MG IH ×6 (01:55→21:51)
[2024-05-12] MEDS: POTASSIUM CHLORIDE 20MEQ TAB 40 MEQ PO ×4 (03:31→14:33)
--- NOTE | 2024-05-12 04:21 | ECG_ITS ---
APPROVED REPORT Exam: Resting ECG HR:71 bpm ECG Measurements Heart Rate 71 AXES [place] 160 P 62 QRSd 86 QRS 53 QT 392 T 47 QTc 415 Conclusion SINUS RHYTHM POSSIBLE RIGHT VENTRICULAR CONDUCTION DELAY [RSR (QR) IN V1/V2] NONSPECIFIC T-WAVE ABNORMALITY BORDERLINE ECG UNCONFIRMED REPORT Electronically signed by : Mike Estrada MD 05/12/2024 10:14:30
[2024-05-12] MEDS: BUDESONIDE 0.5MG/2ML NEB 0.5 MG IH ×2 (06:06→18:22)
[2024-05-12] MEDS: BUMETANIDE 10 MG in 0.9 % SODIUM CHLORIDE 60 ML IV (06:14)
[2024-05-12 06:23] LABS: Basophils # 0.1 K/mm3 (0-0.2); Eosinophils # 0.1 K/mm3 (0.0-0.4); Eosinophils % 0.6 % (0.1-12.0); Hematocrit 35.1 % (37.0-47.0); Lymphocytes # 2.3 K/mm3 (0.7-4.5); Lymphocytes % 20.6 % (10-50); Mean Corpuscular HGB Conc 28.5 g/dL (31.8-35.4); Mean Corpuscular Volume 94.9 fl (81-99); Mean Platelet Volume 10.7 fl (7.4-10.4); Monocytes # 1.6 K/mm3 (0.1-1.0); Monocytes % 14.8 % (1.7-9.3); Neutrophils # 6.8 K/mm3 (1.8-7.8); Neutrophils % 62.3 % (37.0-80.0); Platelet Count 246 K/mm3 (142-424); Red Cell Distribution Width 15.6 % (11.5-17.5)
[2024-05-12 06:37] LABS: Albumin Level 3.3 g/dl (3.5-5.0); Chloride 85 mmol/L (98-107)
[2024-05-12 06:38] LABS: Potassium 3.5 mmoL/L (3.5-5.1); Sodium 140 mmol/L (136-145)
[2024-05-12 06:40] LABS: Alanine Aminotransferase 13 U/L (12-78); Aspartate Amino Transferase 29 U/L (14-36); Blood Urea Nitrogen 19 mg/dl (7-17); Creatinine Clearance Estimated 27 mL/min (50-200); Estimated Glomerular Filt Rate 39 ml/min (>60); GFR (African American) 48 ML/MIN (>60)
[2024-05-12 06:41] LABS: Albumin/Globulin Ratio 1.1 (1.1-1.8); Alkaline Phosphatase 91 U/L (38-126); Bilirubin,Total 0.5 mg/dl (0.2-1.3); Calcium 8.4 mg/dl (8.4-10.2); Globulin 3.1 g/dL (1.3-3.2); Glucose 121 mg/dl (74-100); Magnesium 1.9 mg/dl (1.6-2.3); Total Protein,Serum 6.4 g/dl (6.3-8.2)
[2024-05-12] MEDS: LEVOTHYROXINE 125MCG (0.125MG) TAB 125 MCG PO (06:47)
[2024-05-12] MEDS: PHENOL THROAT SPRAY 177 ML BOTTLE MM ×2 (06:47→18:47)
--- NOTE | 2024-05-12 06:52 | PC.NURSE ---
pt alert and oriented. during the night pt went in to afib with rvr with a rate of 160s. pt was given 5mg of metoprolol iv push, po metoprolol. pt rate still in the 120s. pt was then started on a diltiazem drip plus had a push dose of diltiazem 10mg. pt was then finally coverted to normal sinus and the diltiazem drip was stopped. pt began to complain of a sore throat. chloroseptic spary was ordered. pts vapotherm was turned down to 35/40. pt had output of 4300 over night. pt was given 2 doses of potassium po due to potassium being 3.3.
[2024-05-12 06:58] LABS: Anion Gap 8.5 mEq/L (5-15); Carbon Dioxide 50 mmol/L (22.0-30.0)
[2024-05-12] MEDS: MEMANTINE 10MG TABLET 5 MG PO ×2 (08:41→20:58)
[2024-05-12] MEDS: BUSPIRONE HCL 10 MG TABLET 30 MG PO ×2 (08:42→20:58)
[2024-05-12] MEDS: acetaZOLAMIDE 250 MG TABLET 500 MG PO ×2 (08:43→20:58)
[2024-05-12] MEDS: DULOXETINE 30MG CAPSULE.DR 60 MG PO (08:43)
[2024-05-12] MEDS: AMLODIPINE 5MG TABLET 5 MG PO (08:44)
[2024-05-12] MEDS: METOPROLOL TARTRATE 25MG TABLET 25 MG PO ×2 (08:44→20:58)
--- NOTE | 2024-05-12 08:51 | PC.NURSE ---
no stairs on unit to access stair use
[2024-05-12] MEDS: APIXABAN 5MG TABLET 5 MG PO ×2 (09:28→20:57)
[2024-05-12] MEDS: ACETAMINOPHEN 325MG TAB 650 MG PO (09:33)
--- NOTE | 2024-05-12 09:46 | PC.NURSE ---
Pt.s 02 sat was 100% with vapotherm settings of 35L ,40% . No distress noted at this time. I decreased vapotherm to 20L , 35% will continue to monitor. Notified RN of change.
--- NOTE | 2024-05-12 10:32 | EXP.PULM.PN ---
Subjective *Date: 05/12/24 *Time: 13:20 Interval history: No acute respiratory vents overnight. Pulmonology Exam Inpatient Vital signs and Labs for Last 24 Hours: Temp Pulse Resp BP Pulse Ox O2 Del Method O2 Flow Rate 98.1 F 63 20 126/67 100 Vapotherm 35 05/12/24 08:00 05/12/24 09:44 05/12/24 08:00 05/12/24 08:00 05/12/24 09:44 05/12/24 09:44 05/12/24 09:44 FiO2 40 05/12/24 09:44 Laboratory Results - last 24 hr 05/12/24 00:40: Sodium 137, Potassium 3.3 L, Chloride 83 L, Carbon Dioxide 49 H*, Anion Gap 8.3, BUN 19 H, Creatinine 1.20 H, Estimated Creat Clear 30, Estimated GFR 43 L, Est GFR ( Amer) 52 L, Glucose 135 H, Calcium 8.2 L, Magnesium 2.1 05/12/24 05:07: WBC 11.0 H D, RBC 3.70 L, Hgb 10.0 L D, Hct 35.1 L, MCV 94.9, MCH 27.0, MCHC 28.5 L, RDW 15.6, Plt Count 246, MPV 10.7 H, Neut % (Auto) 62.3, Lymph % (Auto) 20.6, [place] % (Auto) 14.8 H, Eos % (Auto) 0.6, Baso % (Auto) 1.0, Neut # (Auto) 6.8, Lymph # (Auto) 2.3, [place] # (Auto) 1.6 H, Eos # (Auto) 0.1, Baso # (Auto) 0.1, Sodium 140, Potassium 3.5, Chloride 85 L, Carbon Dioxide 50 H*, Anion Gap 8.5, BUN 19 H, Creatinine 1.30 H, Estimated Creat Clear 27, Estimated GFR 39 L, Est GFR ( Amer) 48 L, Glucose 121 H, Calcium 8.4, Magnesium 1.9, Total Bilirubin 0.5, AST 29 D, ALT 13, Alkaline Phosphatase 91, Total Protein 6.4, Albumin 3.3 L, Globulin 3.1, Albumin/Globulin Ratio 1.1 Temp Pulse Resp BP Pulse Ox O2 Del Method O2 Flow Rate 99.0 F 89 24 150/59 H 97 Vapotherm 30 05/11/24 08:00 05/11/24 08:00 05/11/24 08:00 05/11/24 08:00 05/11/24 09:01 05/11/24 09:13 05/11/24 09:13 FiO2 55 05/11/24 09:13 Laboratory Results - last 24 hr 05/10/24 13:45: WBC 9.3, RBC 3.21 L, Hgb 8.9 L, Hct 31.7 L, MCV 98.8, MCH 27.7, MCHC 28.1 L, RDW 14.6, Plt Count 178, MPV 10.3, Neut % (Auto) 67.8, Lymph % (Auto) 19.1, [place] % (Auto) 9.0, Eos % (Auto) 2.2, Baso % (Auto) 1.0, Neut # (Auto) 6.3, Lymph # (Auto) 1.8, [place] # (Auto) 0.8, Eos # (Auto) 0.2, Baso # (Auto) 0.1, PT 11.6, INR 1.04, APTT 26.2, Sodium 141, Potassium 4.7, Chloride 92 L, Carbon Dioxide 45 H*, Anion Gap 8.7, BUN 14, Creatinine 0.70, Estimated Creat Clear 37, Estimated GFR 81, Est GFR ( Amer) 97, Glucose 130 H, Calcium 8.9, Magnesium 2.0, Total Bilirubin 0.6, AST 19, ALT 14, Alkaline Phosphatase 64, Troponin I 0.01, NT-Pro-B Natriuret Pep 2820 H, Total Protein 6.2 L, Albumin 3.0 L, Globulin 3.2, Albumin/Globulin Ratio 0.9 L 05/10/24 13:56: VBG pH 7.24 L, VBG pCO2 104.3 H, VBG pO2 42.2 H, VBG HCO3 43.2 H, VBG Total CO2 46.4 H, VBG O2 Saturation 73.3 H, VBG Base Excess 15.7 H, VBG Lactic Acid 2.1 H 05/10/24 16:00: VBG pH 7.31, VBG pCO2 81.4 H, VBG pO2 45.3 H, VBG HCO3 40.4 H, VBG Total CO2 42.9 H, VBG O2 Saturation 81.6 H, VBG Base Excess 14.2 H, VBG Lactic Acid 1.4 05/10/24 17:26: Lactate 2.1, Troponin I 0.02 05/10/24 20:19: Lactate 1.2, Troponin I 0.02 05/10/24 21:15: Urine Color Yellow, Urine Appearance Clear, Urine pH 5.5, Ur Specific [place] 1.020, Urine Protein Negative, Urine Glucose (UA) Negative, Urine Ketones Negative, Urine Blood Negative, Urine Nitrate Negative, Urine Bilirubin Negative, Urine Urobilinogen 0.2, Ur Leukocyte Esterase Negative, Urine RBC None, Urine WBC Occasional, Ur Squamous Epith Cells 3-5, Urine Bacteria Trace 05/11/24 05:53: WBC 8.0, RBC 3.20 L, Hgb 8.6 L, Hct 30.1 L, MCV 94.1, MCH 26.9 L, MCHC 28.6 L, RDW 14.7, Plt Count 200, MPV 10.8 H, Neut % (Auto) 82.6 H, Lymph % (Auto) 10.8, [place] % (Auto) 5.4, Eos % (Auto) 0.0 L, Baso % (Auto) 0.3, Neut # (Auto) 6.6, Lymph # (Auto) 0.9, [place] # (Auto) 0.4, Eos # (Auto) 0.0, Baso # (Auto) 0.0, Sodium 139, Potassium 3.7 D, Chloride 90 L, Carbon Dioxide 46 H*, Anion Gap 6.7, BUN 18 H D, Creatinine 1.00 D, Estimated Creat Clear 35, Estimated GFR 53 L, Est GFR ( Amer) 65 D, Glucose 161 H D, Calcium 8.8, Magnesium 2.0, Total Bilirubin 0.6, AST 19, ALT 14, Alkaline Phosphatase 89, Total Protein 6.1 L, Albumin 3.1 L, Globulin 3.0, Albumin/Globulin Ratio 1.0 L, TSH 0.16 L 05/11/24 08:11: VBG pH 7.43 H, VBG pCO2 57.2 H, VBG pO2 75.7 H, VBG HCO3 36.9 H, VBG Total CO2 38.6 H, VBG O2 Saturation 95.3 H, VBG Base Excess 12.5 H, VBG Lactic Acid 1.7 I & O for Labs for Last 24 Hours: Intake & Output 05/09/24 05/10/24 05/11/24 05/12/24 23:59 23:59 23:59 23:59 Intake Total 1852.100 / 1852.100 256.917 / 256.917 Output Total 350 / 350 4375 / 5025 1999 Balance -350 / -320 -2522.900 / -3172.900 -1743.083 / -1743.083 Weight 234 lb 8 oz 235 lb 9.6 oz 233 lb Intake & Output 05/08/24 05/09/24 05/10/24 05/11/24 23:59 23:59 23:59 23:59 Intake Total 666.4 / 666.4 Output Total 350 / 350 1550 / 1550 Balance -350 / -320 -883.6 / -883.6 Weight 234 lb 8 oz 235 lb 9.6 oz Microbiology Reports for the Last 24 Hours: Microbiology 05/10/24 14:09 Blood Blood Culture - Preliminary 05/10/24 14:09 Blood Blood Culture - Preliminary Constitutional: Present severe distress Head: Present normocephalic and atraumatic ENT: Present normal exam, normal oropharynx and mucous membranes moist Neck: Present normal inspection and full ROM Respiratory: Present respiratory distress, rhonchi, crackles and diminished air movement; Absent wheezes or able to speak in complete sentences Cardiac: Present S1/S2, Tachycardia and radial pulses present GI: Present soft and distention; Absent tenderness or guarding Rectal (female): Present deferred (female): Present deferred Skin: Present intact; Absent cyanosis or jaundice Neuro: Present alert, awake and oriented x 3 Extremities: Present normal inspection and edema; Absent clubbing or cyanosis Psychiatric: Present normal affect and cooperative Assessment and Plan *Assessment and plan (1) Acute exacerbation of chronic obstructive pulmonary disease: Status: Acute Category: Medical Code(s): J44.1 - Chronic obstructive pulmonary disease with (acute) exacerbation (2) Acute hypercapnic respiratory failure: Status: Acute Category: Medical Code(s): J96.02 - Acute respiratory failure with hypercapnia (3) Acute on chronic hypoxic respiratory failure: Status: Acute Category: Medical Code(s): J96.21 - Acute and chronic respiratory failure with hypoxia (4) Pneumonia: Status: Acute Qualifiers: Laterality: right Lung location: unspecified part of lung Pneumonia type: due to unspecified organism Qualified Code(s): J18.9 - Pneumonia, unspecified organism Category: Medical Code(s): J18.9 - Pneumonia, unspecified organism Plan Ms. Garcia is a 79-year-old female with a history of COPD chronic hypoxic respiratory failure at baseline on 2 to 3 L nasal cannula oxygen supplementation, heart failure with preserved ejection fraction presented to the ER with worsening respiratory distress needing increasing oxygen requirements and pulmonary was called for further evaluation and management. Patient blood gas upon admission showed hypercarbic respiratory failure. Patient denies any subjective fever/sleep contact/worsening cough or any productive phlegm prior to admission. Admits gradually worsening respiratory distress and worsening wheezing. Afebrile. Hemodynamically stable. No evidence of leukocytosis. Comprehensive respiratory viral PCR panel negative blood gas upon admission showed acute on chronic hypercarbic respiratory failure with pH of 7.24 and pCO2 104.3. Subsequent blood gases improved to 7.43 and 57.2. Chest x-ray upon admission interstitial markings right greater than left along with bilateral effusions left greater than right. Right lower lobe medial consolidative changes noted. On initial examination no significant wheezing noted on auscultation. Crackles and rhonchi. On high flow nasal cannula oxygen supplementation. Interval update: Slight worsening leukocytosis. Continue to receive diuretics. Improving also requirements, will wean to nasal cannula. Blood cultures GROWING staph concerning for contaminant, given her clinical improvement and the plan was made to have a close clinical follow-up and repeat blood cultures. Plan: Continue high flow nasal oxygen supplementation to maintain O2 saturation goal of 90% wean as tolerated. Will likely wean to nasal cannula today Continue levofloxacin 750 mg daily pending culture results we will do sputum induction. DuoNebs every 4 hours along with Pulmicort every 12 scheduled Continue Prednisone 40 mg daily x 5 days Volume optimization as per primary team and cardiology
[2024-05-12] MEDS: dilTIAZem ER 120MG CAPSULE 120 MG PO (10:47)
--- NOTE | 2024-05-12 11:49 | P.PN_ITS ---
Subjective Subjective Date: 05/12/24 Time: 09:30 Principal diagnosis: Acute on chronic HFpEF Interval history: This is an 79-year-old female who presented to the hospital with shortness of breath and edema. She is currently being treated for acute on chronic HFpEF and worsening pulmonary edema. She states that she is still short of breath today but this is getting better. It is associated with orthopnea. She denies any chest pain or pressure. She states that she just still feels full of fluid. She states her lower extremity edema is slightly better but still present. She denies any fever, chills, nausea, vomiting or diarrhea. Exam Data for Last 24 hours Vital signs and Labs for Last 24 Hours: Temp Pulse Resp BP Pulse Ox O2 Del Method O2 Flow Rate 98.1 F 66 19 122/54 L 97 Vapotherm 20 05/12/24 08:00 05/12/24 10:00 05/12/24 10:00 05/12/24 10:00 05/12/24 10:00 05/12/24 11:00 05/12/24 11:00 FiO2 35 05/12/24 10:00 Laboratory Results - last 24 hr 05/12/24 00:40: Sodium 137, Potassium 3.3 L, Chloride 83 L, Carbon Dioxide 49 H* , Anion Gap 8.3, BUN 19 H, Creatinine 1.20 H, Estimated Creat Clear 30, Estimated GFR 43 L, Est GFR ( Amer) 52 L, Glucose 135 H, Calcium 8.2 L, Magnesium 2.1 05/12/24 05:07: WBC 11.0 H D, RBC 3.70 L, Hgb 10.0 L D, Hct 35.1 L, MCV 94.9, MCH 27.0, MCHC 28.5 L, RDW 15.6, Plt Count 246, MPV 10.7 H, Neut % (Auto) 62.3, Lymph % (Auto) 20.6, [place] % (Auto) 14.8 H, Eos % (Auto) 0.6, Baso % (Auto) 1.0, Neut # (Auto) 6.8, Lymph # (Auto) 2.3, [place] # (Auto) 1.6 H, Eos # (Auto) 0.1, Baso # (Auto) 0.1, Sodium 140, Potassium 3.5, Chloride 85 L, Carbon Dioxide 50 H*, Anion Gap 8.5, BUN 19 H, Creatinine 1.30 H, Estimated Creat Clear 27, Estimated GFR 39 L, Est GFR ( Amer) 48 L, Glucose 121 H, Calcium 8.4, Magnesium 1.9, Total Bilirubin 0.5, AST 29 D, ALT 13, Alkaline Phosphatase 91, Total Protein 6.4, Albumin 3.3 L, Globulin 3.1, Albumin/Globulin Ratio 1.1 I & O for Last 24 hours: Intake & Output 05/09/24 05/10/24 05/11/24 05/12/24 23:59 23:59 23:59 23:59 Intake Total 1852.100 / 1852.100 256.917 / 256.917 Output Total 350 / 350 4375 / 5025 1999 Balance -350 / -320 -2522.900 / -3172.900 -1743.083 / -1743.083 Weight 234 lb 8 oz 235 lb 9.6 oz 233 lb Microbiology Reports for the Last 24 Hours: Microbiology 05/10/24 14:09 Blood Blood Culture - Preliminary Gram Positive Cocci 05/10/24 14:09 Blood Blood Culture - Preliminary Constitutional Constitutional: no acute distress and morbidly obese *Routine HEENT Exam Head: Present normocephalic and atraumatic ENT: Present mucous membranes moist *Routine Neck Exam Neck: Present supple, full ROM and normal carotid upstroke; Absent JVD, carotid bruit or lymphadenopathy *Routine Respiratory Exam Respiratory: Present rales, rhonchi, wheezes, able to speak in complete sentences and symmetric chest movement *Routine Cardiovascular Exam Cardiovascular: Present RRR, Normal S1 and Normal S2; Absent murmur or gallop *Routine Abdominal Exam Abdominal: Present soft and normoactive bowel sounds; Absent tenderness, distended or organomegaly *Routine Extremities Exam Extremities: Present full ROM, pulses intact and normal capillary refill; Absent cyanosis, clubbing or edema *Routine Skin Exam Skin: Present intact and warm; Absent erythema *Routine Neurological Exam Neurological: Present alert, oriented X3 and CN II-XII intact; Absent sensory deficit or motor deficit Routine Psychiatric Exam Psychiatric: Present normal affect Progress Note: A&P Assessment and plan (1) Acute on chronic heart failure with preserved ejection fraction (HFpEF): Status: Acute (2) Acute exacerbation of chronic obstructive pulmonary disease: Status: Acute (3) Acute hypercapnic respiratory failure: Status: Acute (4) Acute on chronic hypoxic respiratory failure: Status: Acute (5) Pneumonia: Status: Acute (6) Hyperlipidemia: Status: Acute (7) HTN (hypertension): Status: Acute (8) SOB (shortness of breath) on exertion: Status: Acute Assessment and Plan Assessment and Plan for All Diagnoses:: 1. The patient was admitted to the hospital with acute on chronic HFpEF. The patient is currently being diuresed with IV Bumex drip. She has a -2500 mL fluid balance overnight. Will continue with diuresis at this time. She likely has significantly more fluid to diurese. 2. Continue Diamox 500 mg p.o. twice daily for continued diuresis as well. 3. The patient did go into paroxysmal atrial fibrillation last night. She was started on a diltiazem drip and she is now back in sinus rhythm. Stop Norvasc and stop diltiazem drip. Start diltiazem ER 120 mg p.o. daily for suppression of atrial fibrillation 4. Will hold off on starting Entresto at this time as her blood pressure may not tolerate the addition of Entresto and diltiazem. 5. The patient is on long-term anticoagulation with Eliquis due to a history of pulmonary emboli. Now also for her paroxysmal atrial fibrillation. 6. The patient is also having a COPD exacerbation. Pulmonology has been consulted. Will defer. 7. Patient had recent cardiac MRI which shows a normal ejection fraction. There is mild reduction in her right ventricular function with dilated pulmonary arteries consistent with underlying pulmonary disease. As mentioned above pulmonology has been consulted. 8. She is anemic. She did get IV iron. 9. She denies any chest pain or pressure. Her troponins are negative. No plans for invasive left cardiac catheterization at this time. 10. Blood pressure is acceptable. 11. LDL goal is less than 100. Her LDL is 71. She is on a statin. 12. The patient's creatinine is up to 1.3 today. This is acceptable. We want to diurese the patient until her creatinine approaches 1.5 or above as she is significantly volume overloaded at this time. 13. Further recommendations will be made pending the patient's response to treatment. Thank you for the opportunity to participate in the care of this patient. All recommendations and orders are per Dr. Watson.
[2024-05-12] MEDS: BUMETANIDE 1MG/4ML VIAL 2 MG IV (18:13)
--- NOTE | 2024-05-12 18:18 | PC.NURSE ---
Patient weaned to 20L 35% vapotherm, patient able to sit in chair for meals with assistance. Lung sounds diminished right base. Patient alert and oriented times 4.
--- NOTE | 2024-05-12 19:02 | EXP.ACUTE.PN ---
Subjective *Date: 05/12/24 *Time: 22:49 Interval history: Slowly weaning oxygen. Diuresing well. Will remove Amaro today. Denies chest pain. Alert and oriented today. Showing gradual improvement. Afebrile overnight. Had brief episode of A-fib overnight, initiated on diltiazem. Had good response. Medical Exam Vital signs and Labs for Last 24 Hours: Vital Signs Temp Pulse Pulse Resp BP Pulse Ox O2 Del Method 05/12/24 18:36 Room Air 05/12/24 18:23 84 05/12/24 18:23 88 05/12/24 18:23 95 Vapotherm 05/12/24 18:00 88 20 127/60 94 L Vapotherm 05/12/24 16:44 Vapotherm 05/12/24 16:00 98.7 F 05/12/24 16:00 77 17 138/83 95 Vapotherm 05/12/24 15:00 Vapotherm 05/12/24 14:01 83 05/12/24 14:01 75 05/12/24 14:01 93 L Vapotherm 05/12/24 14:00 70 22 137/73 98 Vapotherm 05/12/24 14:00 98 Vapotherm 05/12/24 13:00 Vapotherm 05/12/24 12:00 78 05/12/24 12:00 98.4 F 80 28 H 111/62 96 Vapotherm 05/12/24 11:00 Vapotherm 05/12/24 10:00 66 19 122/54 L 97 Vapotherm 05/12/24 09:44 63 05/12/24 09:44 63 05/12/24 09:44 100 Vapotherm 05/12/24 09:00 Vapotherm, Trilogy 05/12/24 08:00 85 05/12/24 08:00 98.1 F 74 20 126/67 92 L Vapotherm 05/12/24 08:00 100 Vapotherm 05/12/24 07:00 75 22 147/104 H 92 L Vapotherm 05/12/24 06:13 Vapotherm 05/12/24 06:07 74 05/12/24 06:07 75 05/12/24 06:07 99 Vapotherm 05/12/24 06:00 77 22 158/87 H Vapotherm 05/12/24 05:00 Vapotherm 05/12/24 04:00 72 05/12/24 04:00 98.4 F 73 21 145/68 H 99 Vapotherm 05/12/24 02:39 Vapotherm 05/12/24 02:00 68 17 129/75 100 Vapotherm 05/12/24 01:55 75 05/12/24 01:55 72 05/12/24 01:19 Vapotherm 05/12/24 01:00 Vapotherm 05/12/24 00:00 144 H 05/12/24 00:00 98.6 F 112 H 17 141/76 H 95 Vapotherm 05/11/24 23:00 Vapotherm 05/11/24 22:00 95 H 22 171/62 H 95 Vapotherm 05/11/24 21:38 95 H 05/11/24 21:38 86 05/11/24 21:00 Vapotherm 05/11/24 20:00 98 Vapotherm 05/11/24 20:00 91 H 05/11/24 20:00 98.3 F 88 34 H 142/79 H 98 Vapotherm O2 Flow Rate FiO2 05/12/24 18:36 05/12/24 18:23 05/12/24 18:23 05/12/24 18:23 20 35 05/12/24 18:00 05/12/24 16:44 05/12/24 16:00 05/12/24 16:00 05/12/24 15:00 05/12/24 14:01 05/12/24 14:01 05/12/24 14:01 20 35 05/12/24 14:00 20 35 05/12/24 14:00 20 35 05/12/24 13:00 20 05/12/24 12:00 05/12/24 12:00 20 35 05/12/24 11:00 20 05/12/24 10:00 20 35 05/12/24 09:44 05/12/24 09:44 05/12/24 09:44 35 40 05/12/24 09:00 35 05/12/24 08:00 05/12/24 08:00 35 40 05/12/24 08:00 35 40 05/12/24 07:00 35 40 05/12/24 06:13 35 05/12/24 06:07 05/12/24 06:07 05/12/24 06:07 35 40 05/12/24 06:00 35 05/12/24 05:00 35 05/12/24 04:00 05/12/24 04:00 35 05/12/24 02:39 35 05/12/24 02:00 35 05/12/24 01:55 05/12/24 01:55 05/12/24 01:19 35 50 05/12/24 01:00 35 05/12/24 00:00 05/12/24 00:00 35 05/11/24 23:00 35 05/11/24 22:00 35 05/11/24 21:38 05/11/24 21:38 05/11/24 21:00 35 05/11/24 20:00 35 50 05/11/24 20:00 05/11/24 20:00 35 Intake and Output 05/12/24 05/12/24 05/12/24 07:59 15:59 23:59 Intake Total 136.917 / 1071.917 600 / 1071.917 335 / 1071.917 Output Total 19995 875 / 3275 400 / 3275 Balance -1863.083 / -2203.083 -275 / -2203.083 -65 / -2203.083 Intake: Intake, Oral Amount 600 / 935 335 / 935 Intake, Total IV Amount 136.917 / 136.917 dilTIAZem HCL 100 mg In 0.9 % 20 / 20 Sodium Chloride 100 ml @ 5 MG/ HR 5 mls/hr IV .Q20H [facility] Rx#: [id number] Output: Output, Urine Amount 1999 875 / 3275 400 / 3275 Other: Number of Unmeasured Voids 0 0 0 Weight 105.687 kg 105.6 kg Patient Weight 05/12/24 23:59 Weight 105.6 kg Laboratory Results - last 24 hr 05/12/24 00:40: Sodium 137, Potassium 3.3 L, Chloride 83 L, Carbon Dioxide 49 H*, Anion Gap 8.3, BUN 19 H, Creatinine 1.20 H, Estimated Creat Clear 30, Estimated GFR 43 L, Est GFR ( Amer) 52 L, Glucose 135 H, Calcium 8.2 L, Magnesium 2.1 05/12/24 05:07: WBC 11.0 H D, RBC 3.70 L, Hgb 10.0 L D, Hct 35.1 L, MCV 94.9, MCH 27.0, MCHC 28.5 L, RDW 15.6, Plt Count 246, MPV 10.7 H, Neut % (Auto) 62.3, Lymph % (Auto) 20.6, [place] % (Auto) 14.8 H, Eos % (Auto) 0.6, Baso % (Auto) 1.0, Neut # (Auto) 6.8, Lymph # (Auto) 2.3, [place] # (Auto) 1.6 H, Eos # (Auto) 0.1, Baso # (Auto) 0.1, Sodium 140, Potassium 3.5, Chloride 85 L, Carbon Dioxide 50 H*, Anion Gap 8.5, BUN 19 H, Creatinine 1.30 H, Estimated Creat Clear 27, Estimated GFR 39 L, Est GFR ( Amer) 48 L, Glucose 121 H, Calcium 8.4, Magnesium 1.9, Total Bilirubin 0.5, AST 29 D, ALT 13, Alkaline Phosphatase 91, Total Protein 6.4, Albumin 3.3 L, Globulin 3.1, Albumin/Globulin Ratio 1.1 I & O for Labs for Last 24 Hours: Intake & Output 05/09/24 05/10/24 05/11/24 05/12/24 23:59 23:59 23:59 23:59 Intake Total 1852.100 / 8619.054 0234.917 / 1071.917 Output Total 350 / 350 4375 / 5025 3275 / 3275 Balance -350 / -320 -2522.900 / -3172.900 -2203.083 / -2203.083 Weight 106.367 kg 106.866 kg 105.6 kg Microbiology Reports for the Last 24 Hours: Microbiology 05/10/24 14:09 Blood Blood Culture - Preliminary Gram Positive Cocci 05/10/24 14:09 Blood Blood Culture - Preliminary Constitutional: Present mild distress, morbidly obese, chronically ill appearing and cooperative Head: Present atraumatic and normocephalic ENT: Present normal exam Respiratory: Present prolonged expiratory phase, crackles and diminished air movement; Absent rhonchi or wheezes Cardiac: Present Reg Rate and Rhythm GI: Present soft and normal bowel sounds; Absent distention or tenderness Extremities: Present normal inspection, full ROM and edema (2+ to thighs) Skin: Present intact; Absent erythema Neuro: Present Grossly Intact, alert, awake and moves all extremities Assessment and Plan *Assessment and plan (1) Respiratory failure with hypoxia and hypercapnia: Status: Acute Qualifiers: Chronicity: acute on chronic Qualified Code(s): J96.21 - Acute and chronic respiratory failure with hypoxia; J96.22 - Acute and chronic respiratory failure with hypercapnia Category: Medical Code(s): J96.91 - Respiratory failure, unspecified with hypoxia; J96.92 - Respiratory failure, unspecified with hypercapnia (2) Metabolic encephalopathy: Status: Acute Category: Medical Code(s): G93.41 - Metabolic encephalopathy (3) Pneumonia: Status: Acute Qualifiers: Pneumonia type: due to unspecified organism Laterality: right Lung location: unspecified part of lung Qualified Code(s): J18.9 - Pneumonia, unspecified organism Category: Medical Code(s): J18.9 - Pneumonia, unspecified organism (4) Bilateral pulmonary embolism: Status: Acute Category: Medical Code(s): I26.99 - Other pulmonary embolism without acute cor pulmonale (5) Acute on chronic hypoxic respiratory failure: Status: Acute Category: Medical Code(s): J96.21 - Acute and chronic respiratory failure with hypoxia (6) COPD exacerbation: Status: Acute Category: Medical Code(s): J44.1 - Chronic obstructive pulmonary disease with (acute) exacerbation (7) Acute exacerbation of chronic obstructive pulmonary disease: Status: Acute Category: Medical Code(s): J44.1 - Chronic obstructive pulmonary disease with (acute) exacerbation (8) (HFpEF) heart failure with preserved ejection fraction: Status: Acute Qualifiers: Heart failure chronicity: acute on chronic Qualified Code(s): I50.33 - Acute on chronic diastolic (congestive) heart failure Category: Medical Code(s): I50.30 - Unspecified diastolic (congestive) heart failure (9) Obesity: Status: Acute Qualifiers: Obesity type: due to excess calories Obesity classification: adult class 1 (BMI 30 - 34.9) Serious obesity comorbidity presence: without serious comorbidity Body mass index: unspecified BMI Qualified Code(s): E66.811 - Obesity, class 1; E66.09 - Other obesity due to excess calories Category: Medical Code(s): E66.9 - Obesity, unspecified Plan Patito Garcia is an 79-year-old female with a medical history significant for COPD on home O2, hypertension, pulmonary embolism, hypertension, dementia, anxiety/depression, hypothyroidism who presents with shortness of breath, suspected confusion, worsening symptoms over the past 2 to 3 days. Discussed case with ER physician, request admission for further management of COPD and heart failure exacerbation. I agreed to admit for further care. Admitted to stepdown. Tolerating Vapotherm. Necessitating inpatient care. Pulmonology and cardiology evaluating this morning. Continues to require patient management for aggressive fluid management. Problems addressed as follows: #Acute metabolic encephalopathy, resolved #Acute on chronic hypoxic, hypercapnic respiratory failure #Acute COPD exacerbation #Community-acquired pneumonia ?Patient showing improvement today. Continue supplemental oxygen for goal sats greater 90%. Weaned to nasal cannula oxygen today. - Discussed case with pulmonology, continue Levaquin 750 mg daily pending cultures. Repeat blood cultures, 2 bottles growing staph species, clinically improving without staff specific treatment. Suspect contaminant. -DuoNebs every 4 hours along with Pulmicort twice daily -Continue prednisone 40 mg daily for 5 days -Continue aggressive diuresis with Bumex drip. -5 L since admission. -White count 11, hemoglobin 10. Repeat CBC, CMP, magnesium ordered in the morning. #Acute on chronic HFpEF Atrial fibrillation -Initial troponin 0.01, 3-hour troponin 0.02. ?BNP elevated at 2800. Significant pulmonary edema per my review of chest x-ray bilaterally on imaging. Also has 3+ edema in her legs. -Discussed case with cardiology, adding Diamox 500 mg twice daily. Continue Bumex drip with increased to 1 mg/h. Improved response. Negative at least 1.4 L this morning -Echo reviewed from February shows elevated RVSP. EF appears preserved. -Continue Lipitor 40 mg nightly. Will hold on blood pressure meds pending med review. - Consider initiating Entresto tomorrow for HFpEF. -Potassium 3.5, magnesium 1.9, BUN 19 creatinine 1.3. -Initiated on diltiazem 120 mg daily. Continue metoprolol tartrate 25 mg twice daily #Falls at home #Physical deconditioning - PT/OT consulted, appreciate recommendations in the morning. Previously recommended SNF placement at last admission. #Chronic pulmonary embolism: Resume home Eliquis 5 mg twice daily. #Hypertension: Holding blood pressure medication at this time, will evaluate home regimen and consider resuming in the morning. Patient normotensive #Dementia: resumed home donepezil and memantine #Anxiety/depression: Resumed home buspirone, duloxetine. #Hypothyroidism: Resumed home levothyroxine 125 mcg. TSH well-controlled at 0.16 Obesity complicates all aspects of her care. Concern for obesity hypoventilation component to her respiratory failure. Full code DVT prophylaxis Eliquis
[2024-05-12] MEDS: DONEPEZIL 10MG TAB 10 MG PO (20:58)
[2024-05-12] MEDS: ATORVASTATIN 40MG TABLET 40 MG PO (20:58)
[2024-05-12] MEDS: hydrOXYzine pamoate 25MG CAPSULE 25 MG PO (20:59)
[2024-05-13] VITALS (16 sets, daily range): BP systolic 115–170; BP diastolic 47–73; PULSE 59–104; RESP 13–20; TEMP 36.4–36.8; O2SAT 90–100; BMI 40.8
[2024-05-13] MEDS: LEVALBUTEROL 1.25MG/3ML NEB 1.25 MG IH ×6 (01:13→22:14)
[2024-05-13] MEDS: IPRATROPIUM BROMIDE 0.5 MG/2.5ML SOLUTION IH ×6 (01:13→22:14)
[2024-05-13] MEDS: BUDESONIDE 0.5MG/2ML NEB 0.5 MG IH ×2 (06:08→18:46)
[2024-05-13] MEDS: LEVOTHYROXINE 125MCG (0.125MG) TAB 125 MCG PO (06:27)
[2024-05-13 07:21] LABS: Basophils # 0.2 K/mm3 (0-0.2); Basophils % 1.4 % (0.1-2.0); Eosinophils # 0.3 K/mm3 (0.0-0.4); Eosinophils % 2.6 % (0.1-12.0); Hemoglobin 10.4 g/dL (12.2-16.2); Lymphocytes # 2.9 K/mm3 (0.7-4.5); Mean Corpuscular HGB Conc 28.9 g/dL (31.8-35.4); Mean Corpuscular Hemoglobin 27.4 pg (27.0-31.2); Mean Platelet Volume 10.7 fl (7.4-10.4); Monocytes # 1.5 K/mm3 (0.1-1.0); Monocytes % 13.8 % (1.7-9.3); Neutrophils # 6.2 K/mm3 (1.8-7.8); Neutrophils % 55.8 % (37.0-80.0); Platelet Count 222 K/mm3 (142-424); Red Blood Count 3.79 M/mm3 (4.20-5.40); Red Cell Distribution Width 15.9 % (11.5-17.5); White Blood Count 11.1 K/mm3 (4.8-10.8)
[2024-05-13 07:22] LABS: Albumin Level 3.4 g/dl (3.5-5.0); Chloride 93 mmol/L (98-107); Sodium 140 mmol/L (136-145)
[2024-05-13 07:24] LABS: Blood Urea Nitrogen 29 mg/dl (7-17); Creatinine Clearance Estimated 24 mL/min (50-200); Estimated Glomerular Filt Rate 33 ml/min (>60); GFR (African American) 40 ML/MIN (>60)
[2024-05-13 07:25] LABS: Alanine Aminotransferase 11 U/L (12-78); Albumin/Globulin Ratio 1.1 (1.1-1.8); Alkaline Phosphatase 82 U/L (38-126); Aspartate Amino Transferase 20 U/L (14-36); Bilirubin,Total 0.6 mg/dl (0.2-1.3); Calcium 8.8 mg/dl (8.4-10.2); Glucose 113 mg/dl (74-100); Total Protein,Serum 6.4 g/dl (6.3-8.2)
[2024-05-13 07:39] LABS: Carbon Dioxide 41 mmol/L (22.0-30.0)
[2024-05-13 07:42] LABS: Magnesium 2.4 mg/dl (1.6-2.3)
[2024-05-13] MEDS: LEVOFLOXACIN/D5W 750 MG/150 ML 750 MG/150 ML PIGGYBACK 100 MG IV (09:53)
[2024-05-13] MEDS: APIXABAN 5MG TABLET 5 MG PO ×2 (09:54→21:40)
[2024-05-13] MEDS: MEMANTINE 10MG TABLET 5 MG PO ×2 (09:54→21:40)
[2024-05-13] MEDS: DULOXETINE 30MG CAPSULE.DR 60 MG PO (09:54)
[2024-05-13] MEDS: dilTIAZem ER 120MG CAPSULE 120 MG PO (09:55)
[2024-05-13] MEDS: acetaZOLAMIDE 250 MG TABLET 500 MG PO ×2 (09:55→21:40)
[2024-05-13] MEDS: METOPROLOL TARTRATE 25MG TABLET 25 MG PO ×2 (09:55→21:40)
[2024-05-13] MEDS: BUSPIRONE HCL 10 MG TABLET 30 MG PO ×2 (09:55→21:39)
[2024-05-13] MEDS: BUMETANIDE 1MG/4ML VIAL 2 MG IV ×2 (09:56→15:52)
--- NOTE | 2024-05-13 11:42 | EXP.ACUTE.PN ---
Subjective *Date: 05/13/24 *Time: 11:42 Interval history: Doing somewhat better today. Encouraged her to get to bedside chair for meals. Down to her baseline oxygen at 2-1/2 L. No nausea or vomiting. Diuresing well. -6 L since admission. Family at bedside. Awaiting repeat blood cultures. Patient afebrile Medical Exam Vital signs and Labs for Last 24 Hours: Vital Signs Temp Pulse Pulse Resp BP Pulse Ox O2 Del Method 05/13/24 11:00 Nasal Cannula 05/13/24 10:11 84 05/13/24 10:11 84 05/13/24 10:11 99 Nasal Cannula 05/13/24 10:00 98.2 F 94 H 20 124/58 L 90 L Nasal Cannula 05/13/24 09:00 Nasal Cannula 05/13/24 08:00 Nasal Cannula 05/13/24 08:00 98 H 18 170/73 H 100 Nasal Cannula 05/13/24 08:00 70 05/13/24 06:28 Nasal Cannula 05/13/24 06:09 68 05/13/24 06:09 82 05/13/24 06:09 99 Nasal Cannula 05/13/24 06:00 86 14 128/68 98 Nasal Cannula 05/13/24 04:42 Nasal Cannula 05/13/24 04:00 63 05/13/24 04:00 98.3 F 63 13 140/47 L 100 Nasal Cannula 05/13/24 02:21 Nasal Cannula 05/13/24 02:00 64 19 134/70 99 Nasal Cannula 05/13/24 01:47 Nasal Cannula 05/13/24 01:13 62 05/13/24 01:13 59 L 05/13/24 01:00 Nasal Cannula 05/13/24 00:00 69 05/13/24 00:00 97.6 F 84 20 141/63 H 98 Nasal Cannula 05/12/24 22:15 Nasal Cannula 05/12/24 22:00 84 20 146/73 H 100 Nasal Cannula 05/12/24 21:51 100 H 05/12/24 21:51 95 H 05/12/24 20:32 Nasal Cannula 05/12/24 20:00 97 H 05/12/24 20:00 Nasal Cannula 05/12/24 20:00 98.8 F 88 27 H 131/68 95 Nasal Cannula 05/12/24 18:36 Room Air 05/12/24 18:23 84 05/12/24 18:23 88 05/12/24 18:23 95 Vapotherm 05/12/24 18:00 88 20 127/60 94 L Vapotherm 05/12/24 16:44 Vapotherm 05/12/24 16:00 98.7 F 05/12/24 16:00 77 17 138/83 95 Vapotherm 05/12/24 15:00 Vapotherm 05/12/24 14:01 83 05/12/24 14:01 75 05/12/24 14:01 93 L Vapotherm 05/12/24 14:00 70 22 137/73 98 Vapotherm 05/12/24 14:00 98 Vapotherm 05/12/24 13:00 Vapotherm 05/12/24 12:00 78 05/12/24 12:00 98.4 F 80 28 H 111/62 96 Vapotherm O2 Flow Rate FiO2 05/13/24 11:00 2.5 05/13/24 10:11 05/13/24 10:11 05/13/24 10:11 2 05/13/24 10:00 2.5 05/13/24 09:00 2.5 05/13/24 08:00 2.5 05/13/24 08:00 2.5 05/13/24 08:00 05/13/24 06:28 2.5 05/13/24 06:09 05/13/24 06:09 05/13/24 06:09 2.5 05/13/24 06:00 2.5 05/13/24 04:42 2.5 05/13/24 04:00 05/13/24 04:00 2.5 05/13/24 02:21 2.5 05/13/24 02:00 2.5 05/13/24 01:47 2.5 05/13/24 01:13 05/13/24 01:13 05/13/24 01:00 2.5 05/13/24 00:00 05/13/24 00:00 2.5 05/12/24 22:15 2.5 05/12/24 22:00 2.5 05/12/24 21:51 05/12/24 21:51 05/12/24 20:32 2.5 05/12/24 20:00 05/12/24 20:00 2.5 05/12/24 20:00 2.5 05/12/24 18:36 05/12/24 18:23 05/12/24 18:23 05/12/24 18:23 20 35 05/12/24 18:00 05/12/24 16:44 05/12/24 16:00 05/12/24 16:00 05/12/24 15:00 05/12/24 14:01 05/12/24 14:01 05/12/24 14:01 20 35 05/12/24 14:00 20 35 05/12/24 14:00 20 35 05/12/24 13:00 20 05/12/24 12:00 05/12/24 12:00 20 35 Intake and Output 05/12/24 05/13/24 05/13/24 23:59 07:59 15:59 Intake Total 335 / 1071.917 300 / 300 Output Total 700 / 3575 350 / 350 Balance -365 / -2503.083 -50 / -50 Intake: Intake, Oral Amount 335 / 935 300 / 300 Output: Output, Urine Amount 700 / 3575 350 / 350 Other: Number of Unmeasured Voids 0 Weight 104.417 kg Patient Weight 05/13/24 23:59 Weight 104.417 kg Laboratory Results - last 24 hr 05/13/24 06:15: WBC 11.1 H, RBC 3.79 L, Hgb 10.4 L, Hct 36.0 L, MCV 95.0, MCH 27.4, MCHC 28.9 L, RDW 15.9, Plt Count 222, MPV 10.7 H, Neut % (Auto) 55.8, Lymph % (Auto) 26.0, Davison % (Auto) 13.8 H, Eos % (Auto) 2.6, Baso % (Auto) 1.4, Neut # (Auto) 6.2, Lymph # (Auto) 2.9, Davison # (Auto) 1.5 H, Eos # (Auto) 0.3, Baso # (Auto) 0.2, Sodium 140, Potassium 4.0, Chloride 93 L, Carbon Dioxide 41 H*, Anion Gap 10.0, BUN 29 H D, Creatinine 1.50 H, Estimated Creat Clear 24, Estimated GFR 33 L, Est GFR ( Amer) 40 L, Glucose 113 H, Calcium 8.8, Magnesium 2.4 H D, Total Bilirubin 0.6, AST 20 D, ALT 11 L, Alkaline Phosphatase 82, Total Protein 6.4, Albumin 3.4 L, Globulin 3.0, Albumin/Globulin Ratio 1.1 I & O for Labs for Last 24 Hours: Intake & Output 05/10/24 05/11/24 05/12/24 05/13/24 23:59 23:59 23:59 23:59 Intake Total 1852.100 / 2093.484 4521.917 / 1071.917 300 / 300 Output Total 350 / 350 4375 / 5025 3575 / 3575 350 / 350 Balance -350 / -320 -2522.900 / -3172.900 -2503.083 / -2503.083 -50 / -50 Weight 106.367 kg 106.866 kg 105.6 kg 104.417 kg Microbiology Reports for the Last 24 Hours: Microbiology 05/10/24 14:09 Blood Blood Culture - Preliminary Gram Positive Cocci 05/10/24 14:09 Blood Blood Culture - Preliminary Gram Positive Cocci Constitutional: Present no acute distress, morbidly obese, chronically ill appearing and cooperative Head: Present atraumatic and normocephalic ENT: Present normal exam Respiratory: Present prolonged expiratory phase and diminished air movement; Absent rhonchi, wheezes or crackles Cardiac: Present Reg Rate and Rhythm GI: Present soft and normal bowel sounds; Absent distention or tenderness Extremities: Present normal inspection, full ROM and edema (1+ to knees) Skin: Present intact; Absent erythema Neuro: Present Grossly Intact, alert, awake and moves all extremities Assessment and Plan *Assessment and plan (1) Respiratory failure with hypoxia and hypercapnia: Status: Acute Qualifiers: Chronicity: acute on chronic Qualified Code(s): J96.21 - Acute and chronic respiratory failure with hypoxia; J96.22 - Acute and chronic respiratory failure with hypercapnia Category: Medical Code(s): J96.91 - Respiratory failure, unspecified with hypoxia; J96.92 - Respiratory failure, unspecified with hypercapnia (2) Metabolic encephalopathy: Status: Acute Category: Medical Code(s): G93.41 - Metabolic encephalopathy (3) Pneumonia: Status: Acute Qualifiers: Pneumonia type: due to unspecified organism Laterality: right Lung location: unspecified part of lung Qualified Code(s): J18.9 - Pneumonia, unspecified organism Category: Medical Code(s): J18.9 - Pneumonia, unspecified organism (4) Bilateral pulmonary embolism: Status: Acute Category: Medical Code(s): I26.99 - Other pulmonary embolism without acute cor pulmonale (5) Acute on chronic hypoxic respiratory failure: Status: Acute Category: Medical Code(s): J96.21 - Acute and chronic respiratory failure with hypoxia (6) COPD exacerbation: Status: Acute Category: Medical Code(s): J44.1 - Chronic obstructive pulmonary disease with (acute) exacerbation (7) Acute exacerbation of chronic obstructive pulmonary disease: Status: Acute Category: Medical Code(s): J44.1 - Chronic obstructive pulmonary disease with (acute) exacerbation (8) (HFpEF) heart failure with preserved ejection fraction: Status: Acute Qualifiers: Heart failure chronicity: acute on chronic Qualified Code(s): I50.33 - Acute on chronic diastolic (congestive) heart failure Category: Medical Code(s): I50.30 - Unspecified diastolic (congestive) heart failure (9) Obesity: Status: Acute Qualifiers: Obesity type: due to excess calories Obesity classification: adult class 1 (BMI 30 - 34.9) Serious obesity comorbidity presence: without serious comorbidity Body mass index: unspecified BMI Qualified Code(s): E66.811 - Obesity, class 1; E66.09 - Other obesity due to excess calories Category: Medical Code(s): E66.9 - Obesity, unspecified Plan Patito Garcia is an 79-year-old female with a medical history significant for COPD on home O2, hypertension, pulmonary embolism, hypertension, dementia, anxiety/depression, hypothyroidism who presents with shortness of breath, suspected confusion, worsening symptoms over the past 2 to 3 days. Discussed case with ER physician, request admission for further management of COPD and heart failure exacerbation. I agreed to admit for further care. Admitted to stepdown. Tolerating Vapotherm. Necessitating inpatient care. Pulmonology and cardiology evaluating this morning. Continues to require patient management for aggressive fluid management. Problems addressed as follows: #Acute metabolic encephalopathy, resolved #Acute on chronic hypoxic, hypercapnic respiratory failure #Acute COPD exacerbation #Community-acquired pneumonia ?Patient showing improvement today. Continue supplemental oxygen for goal sats greater 90%. Weaned to nasal cannula oxygen today. - Discussed case with pulmonology, continue Levaquin 750 mg daily pending cultures. Repeat blood cultures pending. Initial cultures with 2 bottles growing staph species, clinically improving without staff specific treatment. Suspect contaminant. -DuoNebs every 4 hours along with Pulmicort twice daily -Continue prednisone 40 mg daily for 5 days -Continue diuresis, reating with Bumex 2 mg IV twice daily. Off drip. -6 L since admission. -White count stable at 11, hemoglobin 10.4. Potassium 4.0, magnesium 2.4, kidney function stable with BUN 29, creatinine 1.5. Repeat CBC, CMP, magnesium ordered in the morning. #Acute on chronic HFpEF Atrial fibrillation -Initial troponin 0.01, 3-hour troponin 0.02. ?BNP elevated at 2800. Significant pulmonary edema per my review of chest x-ray bilaterally on imaging. Edema improving. -continue Diamox 500 mg twice daily, transition to Bumex 2 mg IV twice daily. -Echo reviewed from February shows elevated RVSP. EF appears preserved. -Continue Lipitor 40 mg nightly. Will hold on blood pressure meds pending med review. - Consider initiating Entresto during admission if kidney function and blood [place] for HFpEF. -Continue on diltiazem 120 mg daily. Continue metoprolol tartrate 25 mg twice daily #Falls at home #Physical deconditioning - PT/OT consulted, appreciate recommendations in the morning. Previously recommended SNF placement at last admission. #Chronic pulmonary embolism: Resume home Eliquis 5 mg twice daily. #Hypertension: Holding blood pressure medication at this time, will evaluate home regimen and consider resuming in the morning. Patient normotensive #Dementia: resumed home donepezil and memantine #Anxiety/depression: Resumed home buspirone, duloxetine. #Hypothyroidism: Resumed home levothyroxine 125 mcg. TSH well-controlled at 0.16 Obesity complicates all aspects of her care. Concern for obesity hypoventilation component to her respiratory failure. Full code DVT prophylaxis Eliquis
--- NOTE | 2024-05-13 16:24 | PC.NURSE ---
Report received. Care assumed by this nurse. Pt is sitting up in the chair. No concerns at this time. Call light within reach.
[2024-05-13] MEDS: ATORVASTATIN 40MG TABLET 40 MG PO (21:39)
[2024-05-13] MEDS: DONEPEZIL 10MG TAB 10 MG PO (21:40)
[2024-05-14] VITALS: BP 125/49; PULSE 70; PULSE 72; RESP 17; O2SAT 98
[2024-05-14 01:19] VITALS: PULSE 68; PULSE 69; O2SAT 96
[2024-05-14] MEDS: LEVALBUTEROL 1.25MG/3ML NEB 1.25 MG IH ×2 (01:19→06:26)
[2024-05-14] MEDS: IPRATROPIUM BROMIDE 0.5 MG/2.5ML SOLUTION IH ×2 (01:19→06:26)
[2024-05-14 04:00] VITALS: BP 116/52; PULSE 60; PULSE 70; RESP 16; TEMP 36.4; O2SAT 91; BMI 40.8
--- NOTE | 2024-05-14 05:31 | PC.NURSE ---
v/s, ox4, 2.5LNC-baseline. Family member at bedside. No acute events to report. Plan of care ongoing.
[2024-05-14] MEDS: BUDESONIDE 0.5MG/2ML NEB 0.5 MG IH (06:26)
[2024-05-14 06:27] VITALS: PULSE 70; O2SAT 98
[2024-05-14] MEDS: LEVOTHYROXINE 125MCG (0.125MG) TAB 125 MCG PO (06:47)
[2024-05-14 08:00] VITALS: BP 123/54; PULSE 70; RESP 18; TEMP 36.6; O2SAT 90; O2SAT 93
[2024-05-14 08:07] LABS: Chloride 93 mmol/L (98-107)
[2024-05-14 08:08] LABS: Albumin Level 3.3 g/dl (3.5-5.0); Potassium 3.3 mmoL/L (3.5-5.1); Sodium 137 mmol/L (136-145)
[2024-05-14 08:10] LABS: Alanine Aminotransferase 10 U/L (12-78); Aspartate Amino Transferase 18 U/L (14-36); Blood Urea Nitrogen 36 mg/dl (7-17); Creatinine Clearance Estimated 22 mL/min (50-200); Estimated Glomerular Filt Rate 31 ml/min (>60); GFR (African American) 38 ML/MIN (>60)
[2024-05-14 08:11] LABS: Albumin/Globulin Ratio 1.1 (1.1-1.8); Alkaline Phosphatase 70 U/L (38-126); Bilirubin,Total 0.4 mg/dl (0.2-1.3); Globulin 2.9 g/dL (1.3-3.2); Glucose 124 mg/dl (74-100); Total Protein,Serum 6.2 g/dl (6.3-8.2)
[2024-05-14 08:17] LABS: Anion Gap 9.3 mEq/L (5-15); Carbon Dioxide 38 mmol/L (22.0-30.0)
--- NOTE | 2024-05-14 08:29 | EXP.PHA.PN ---
Subjective *Date: 05/14/24 *Time: 08:29 Medical Exam Vital signs and Labs for Last 24 Hours: Vital Signs Temp Pulse Pulse Resp BP Pulse Ox O2 Del Method 05/14/24 06:27 70 05/14/24 06:27 70 05/14/24 06:27 98 Nasal Cannula 05/14/24 06:07 Nasal Cannula 05/14/24 05:00 Nasal Cannula 05/14/24 04:00 97.5 F L 70 16 116/52 L 91 L Nasal Cannula 05/14/24 04:00 60 05/14/24 03:00 Nasal Cannula 05/14/24 01:19 68 05/14/24 01:19 69 05/14/24 01:19 96 Nasal Cannula 05/14/24 00:36 Nasal Cannula 05/14/24 00:00 70 05/14/24 00:00 72 17 125/49 L 98 Nasal Cannula 05/13/24 23:00 Nasal Cannula 05/13/24 22:14 98 H 05/13/24 22:14 96 H 05/13/24 21:00 Nasal Cannula 05/13/24 20:00 Nasal Cannula 05/13/24 20:00 100 H 05/13/24 20:00 98.1 F 104 H 18 124/54 L 94 L Nasal Cannula 05/13/24 18:46 98 H 05/13/24 18:46 101 H 05/13/24 18:46 98 Nasal Cannula 05/13/24 18:36 Nasal Cannula 05/13/24 16:56 Nasal Cannula 05/13/24 16:00 80 05/13/24 15:53 98.1 F 81 18 115/64 100 Nasal Cannula 05/13/24 15:00 Nasal Cannula 05/13/24 14:26 85 05/13/24 14:26 83 05/13/24 14:26 99 Nasal Cannula 05/13/24 13:00 Nasal Cannula 05/13/24 12:00 90 05/13/24 12:00 98 F 87 17 139/69 99 05/13/24 11:00 Nasal Cannula 05/13/24 10:11 84 05/13/24 10:11 84 05/13/24 10:11 99 Nasal Cannula 05/13/24 10:00 98.2 F 94 H 20 124/58 L 90 L Nasal Cannula 05/13/24 09:00 Nasal Cannula O2 Flow Rate 05/14/24 06:27 05/14/24 06:27 05/14/24 06:27 2.5 05/14/24 06:07 2.5 05/14/24 05:00 2.5 05/14/24 04:00 2.5 05/14/24 04:00 05/14/24 03:00 2.5 05/14/24 01:19 05/14/24 01:19 05/14/24 01:19 2.5 05/14/24 00:36 2.5 05/14/24 00:00 05/14/24 00:00 2.5 05/13/24 23:00 2.5 05/13/24 22:14 05/13/24 22:14 05/13/24 21:00 2.5 05/13/24 20:00 2.5 05/13/24 20:00 05/13/24 20:00 3 05/13/24 18:46 05/13/24 18:46 05/13/24 18:46 2.5 05/13/24 18:36 2.5 05/13/24 16:56 2.5 05/13/24 16:00 05/13/24 15:53 05/13/24 15:00 2.5 05/13/24 14:26 05/13/24 14:26 05/13/24 14:26 2 05/13/24 13:00 2.5 05/13/24 12:00 05/13/24 12:00 05/13/24 11:00 2.5 05/13/24 10:11 05/13/24 10:11 05/13/24 10:11 2 05/13/24 10:00 2.5 05/13/24 09:00 2.5 Intake and Output 05/13/24 05/14/24 05/14/24 23:59 07:59 15:59 Intake Total 360 / 780 220 / 220 Output Total 500 / 500 Balance 360 / -170 -280 / -280 Intake: Intake, Oral Amount 360 / 780 220 / 220 Output: Output, Urine Amount 500 / 500 Other: Number of Unmeasured Voids 1 Weight 104.417 kg Patient Weight 05/14/24 23:59 Weight 104.417 kg Laboratory Results - last 24 hr 05/14/24 07:05: Sodium 137, Potassium 3.3 L, Chloride 93 L, Carbon Dioxide 38 H, Anion Gap 9.3, BUN 36 H, Creatinine 1.60 H, Estimated Creat Clear 22, Estimated GFR 31 L, Est GFR ( Amer) 38 L, Glucose 124 H, Calcium 9.0, Total Bilirubin 0.4, AST 18, ALT 10 L, Alkaline Phosphatase 70, Total Protein 6.2 L, Albumin 3.3 L, Globulin 2.9, Albumin/Globulin Ratio 1.1 I & O for Labs for Last 24 Hours: Intake & Output 05/11/24 05/12/24 05/13/24 05/14/24 23:59 23:59 23:59 23:59 Intake Total 1852.100 / 4586.523 0950.917 / 1071.917 660 / 780 220 / 220 Output Total 4375 / 5025 3575 / 3575 950 / 950 500 / 500 Balance -2522.900 / -3172.900 -2503.083 / -2503.083 -290 / -170 -280 / -280 Weight 106.866 kg 105.6 kg 104.417 kg 104.417 kg Microbiology Reports for the Last 24 Hours: Microbiology 05/10/24 14:09 Blood - Final Not Reportable 05/10/24 14:09 Blood - Final Not Reportable 05/10/24 14:09 Blood - Final Not Reportable 05/10/24 14:09 Blood - Final Not Reportable 05/10/24 14:09 Blood - Final Not Reportable 05/10/24 14:09 Blood Blood Culture - Final 05/10/24 14:09 Blood Blood Culture - Final Staphylococcus epidermidis 05/12/24 13:52 Blood Blood Culture - Preliminary NO GROWTH AFTER 24 HOURS 05/12/24 13:44 Blood Blood Culture - Preliminary NO GROWTH AFTER 24 HOURS The patient's infection will respond to the chosen ABx?: Yes (REPEAT BLOOD CX = NO GROWTH AT 24 HR, AFEBRILE OVER 24 HRS.) Is the patient receiving the right drug, dose, and route?: Yes Could a more targeted ABx be ordered?: No
[2024-05-14] MEDS: acetaZOLAMIDE 250 MG TABLET 500 MG PO (08:57)
[2024-05-14] MEDS: dilTIAZem ER 120MG CAPSULE 120 MG PO (08:58)
[2024-05-14] MEDS: APIXABAN 5MG TABLET 5 MG PO (08:58)
[2024-05-14] MEDS: BUMETANIDE 1MG/4ML VIAL 2 MG IV (08:58)
[2024-05-14] MEDS: BUSPIRONE HCL 10 MG TABLET 30 MG PO (08:58)
[2024-05-14] MEDS: METOPROLOL TARTRATE 25MG TABLET 25 MG PO (08:59)
[2024-05-14] MEDS: MEMANTINE 10MG TABLET 5 MG PO (08:59)
[2024-05-14] MEDS: DULOXETINE 30MG CAPSULE.DR 60 MG PO (09:07)
[2024-05-14 12:00] VITALS: BP 121/84; PULSE 60; PULSE 62; RESP 15; TEMP 36.9; O2SAT 97
--- NOTE | 2024-05-14 12:14 | P.DS_ITS ---
General Admission date:: 05/10/24 Discharge date: 05/14/24 HPI HPI HPI: Ms. Garcia is an 79-year-old female with history of chronic hypoxemic respiratory failure, COPD, hypertension, HFpEF, obesity, tremors. She presented with confusion and worsening shortness of breath over the past 2 to 3 days. Family is at bedside and helps answer questions. On arrival to the ED, patient hypoxic on initial presentation. Blood gas showed CO2 greater than 100 on VBG with pH of 7.2. Initiated on BiPAP. Chest imaging showing significant pulmonary edema bilaterally with elevated BNP. Medicine consulted for admission and further management of COPD exacerbation and acute on chronic HFpEF along with acute on chronic hypoxemic and hypercapnic respiratory failure Evaluation after arriving to the floor, patient is alert and oriented x 2. History supplemented by family at bedside. Has shown improvement in her blood gas with pH normal on VBG at 7.31. pCO2 80. Patient hungry and wanting to eat. Refusing to wear the mask any further. Transition to Vapotherm. White count normal at 9.3. Kidney function at baseline with BUN 14, creatinine 0.7. Has significant edema on exam. Has not had significant urine output since diuretics administered in the ED. Denies chest pain. Denies significant confusion. Denies nausea or vomiting. Does report she has not been taking her diuretics due to them making her pee regularly. Hospital Course Hospital Course Hospital Course: Patito Garcia is an 79-year-old female with a medical history significant for COPD on home O2, hypertension, pulmonary embolism, hypertension, dementia, anxiety/depression, hypothyroidism who presents with shortness of breath, suspected confusion, worsening symptoms over the past 2 to 3 days. Discussed case with ER physician, request admission for further management of COPD and heart failure exacerbation. I agreed to admit for further care. Admitted to stepdown. Patient was initially on Vapotherm. She responded to treatment for pneumonia and CHF with diuresis and antibiotics, weaned gradually to her baseline oxygen of 2-1/2 L. Stable to discharge home with family to continue to convalesce. Problems addressed as follows: #Acute metabolic encephalopathy, resolved #Acute on chronic hypoxic, hypercapnic respiratory failure #Acute COPD exacerbation #Community-acquired pneumonia ?Presented with respiratory distress and confusion. Initially started on noninvasive ventilation. Had gradual improvement with BiPAP and was able to wean to Vapotherm on the first day of admission. Gradually weaned off Vapotherm to nasal cannula oxygen. Stable on 2-1/2 L for over 48 hours which is her baseline oxygen. Pulmonology was consulted to assist with care. Recommend initiating antibiotics for pneumonia. Weaned to Levaquin to complete full course. Had 2 bottles growing staph species. Blood cultures turned out to be positive for Staph epidermidis. Was not on specific treatment for staph and showed clinical improvement. In light of this, suspect these were contaminants. Treated with DuoNebs, prednisone, aggressive diuresis. White count normalized by day of discharge. Kidney function stable. #Acute on chronic HFpEF #Atrial fibrillation -Initial troponin 0.01, 3-hour troponin 0.02. BNP elevated at 2800. Significant pulmonary edema per my review of chest x-ray bilaterally on imaging. Edema improving. Also concerning for pneumonia. See above for treatment. Patient was initiated on Diamox 500 mg twice daily in addition to her Bumex. Initially on a drip, weaned to 2 mg p.o. twice daily thereafter. Cardiology assisted with care. Echo reviewed from February that showed elevated RVSP with preserved EF. Will continue Lipitor 40 mg nightly. Blood pressure meds initially held but resumed at discharge given clinical improvement inpatient. Was initiated on d iltiazem 120 mg daily because of her A-fib RVR on admission. Continue metoprolol to tartrate 25 mg twice daily. #Falls at home #Physical deconditioning - PT/OT consulted, worked with patient during admission. Patient does not have an interest in going to rehab. Will discharge home with home health for further assistance and support. Lives with family. Gets around with a walker and a wheelchair with their assistance. #Chronic pulmonary embolism: Continue home Eliquis 5 mg twice daily. #Hypertension: Pressures until holding blood pressure medication at this time, will evaluate home regimen and consider resuming in the morning. Patient normotensive #Dementia: resumed home donepezil and memantine #Anxiety/depression: Resumed home buspirone, duloxetine. #Hypothyroidism: Resumed home levothyroxine 125 mcg. TSH well-controlled at 0.16 Total time spent on discharge 32 minutes in counseling, documentation, chart review, and direct care with patient. Exam Data for Last 24 hours Vital signs and Labs for Last 24 Hours: Temp Pulse Resp BP Pulse Ox O2 Del Method O2 Flow Rate 97.8 F 70 18 123/54 L 90 L Nasal Cannula 2.5 05/14/24 08:00 05/14/24 08:00 05/14/24 08:00 05/14/24 08:00 05/14/24 08:00 05/14/24 09:00 05/14/24 09:00 FiO2 35 05/12/24 18:23 Laboratory Results - last 24 hr 05/14/24 07:05: Sodium 137, Potassium 3.3 L, Chloride 93 L, Carbon Dioxide 38 H, Anion Gap 9.3, BUN 36 H, Creatinine 1.60 H, Estimated Creat Clear 22, Estimated GFR 31 L, Est GFR ( Amer) 38 L, Glucose 124 H, Calcium 9.0, Total Bilirubin 0.4, AST 18, ALT 10 L, Alkaline Phosphatase 70, Total Protein 6.2 L, Albumin 3.3 L, Globulin 2.9, Albumin/Globulin Ratio 1.1 I & O for Last 24 hours: Intake & Output 05/11/24 05/12/24 05/13/24 05/14/24 23:59 23:59 23:59 23:59 Intake Total 1852.100 / 2565.700 5968.917 / 1071.917 660 / 780 560 / 560 Output Total 4375 / 5025 3575 / 3575 950 / 950 700 / 700 Balance -2522.900 / -3172.900 -2503.083 / -2503.083 -290 / -170 -140 / -140 Weight 106.866 kg 105.6 kg 104.417 kg 104.417 kg Microbiology Reports for the Last 24 Hours: Microbiology 05/10/24 14:09 Blood - Final Not Reportable 05/10/24 14:09 Blood - Final Not Reportable 05/10/24 14:09 Blood - Final Not Reportable 05/10/24 14:09 Blood - Final Not Reportable 05/10/24 14:09 Blood - Final Not Reportable 05/10/24 14:09 Blood Blood Culture - Final 05/10/24 14:09 Blood Blood Culture - Final Staphylococcus epidermidis 05/12/24 13:52 Blood Blood Culture - Preliminary NO GROWTH AFTER 24 HOURS 05/12/24 13:44 Blood Blood Culture - Preliminary NO GROWTH AFTER 24 HOURS Constitutional Constitutional: no acute distress, morbidly obese, chronically ill appearing and cooperative *Routine HEENT Exam Head: Present normocephalic Eye: Present EOMI and PERRL ENT: Present mucous membranes moist *Routine Neck Exam Neck: Present supple; Absent lymphadenopathy *Routine Respiratory Exam Respiratory: Present CTA bilaterally; Absent rhonchi, wheezes or crackles *Routine Cardiovascular Exam Cardiovascular: Present RRR *Routine Abdominal Exam Abdominal: Present soft and normoactive bowel sounds; Absent tenderness *Routine Rectal Exam Patient deferred: visual exam *Routine Exam Patient deferred: external exam *Routine Extremities Exam Extremities: Present edema (1+ in BLE); Absent cyanosis or clubbing *Routine Skin Exam Skin: Present intact and warm; Absent rash *Routine Neurological Exam Neurological: Present alert, oriented X3 and moving all extremities; Absent altered mental status Results Data Completed and Pending Labs on day of discharge: Labs from last 24 hours 05/14/24 07:05 Sodium 137 Potassium 3.3 L Chloride 93 L Carbon Dioxide 38 H Anion Gap 9.3 BUN 36 H Creatinine 1.60 H Estimated Creat Clear 22 Estimated GFR 31 L Est GFR ( Amer) 38 L Glucose 124 H Calcium 9.0 Total Bilirubin 0.4 AST 18 ALT 10 L Alkaline Phosphatase 70 Total Protein 6.2 L Albumin 3.3 L Globulin 2.9 Albumin/Globulin Ratio 1.1 Preliminary micro results at discharge 05/12/24 13:52 Blood Culture - Preliminary Blood NO GROWTH AFTER 24 HOURS 05/12/24 13:44 Blood Culture - Preliminary Blood NO GROWTH AFTER 24 HOURS DS: Diagnosis Discharge Diagnosis (1) Respiratory failure with hypoxia and hypercapnia: Status: Acute Code(s): J96.91 - Respiratory failure, unspecified with hypoxia; J96.92 - Respiratory failure, unspecified with hypercapnia Qualifiers: Chronicity: acute on chronic Qualified Code(s): J96.21 - Acute and chronic respiratory failure with hypoxia; J96.22 - Acute and chronic respiratory failure with hypercapnia (2) Metabolic encephalopathy: Status: Acute Code(s): G93.41 - Metabolic encephalopathy (3) Pneumonia: Status: Acute Code(s): J18.9 - Pneumonia, unspecified organism Qualifiers: Laterality: right Lung location: unspecified part of lung Pneumonia type: due to unspecified organism Qualified Code(s): J18.9 - Pneumonia, unspecified organism (4) Bilateral pulmonary embolism: Status: Acute Code(s): I26.99 - Other pulmonary embolism without acute cor pulmonale (5) Acute on chronic hypoxic respiratory failure: Status: Acute Code(s): J96.21 - Acute and chronic respiratory failure with hypoxia (6) COPD exacerbation: Status: Acute Code(s): J44.1 - Chronic obstructive pulmonary disease with (acute) exacerbation (7) (HFpEF) heart failure with preserved ejection fraction: Status: Acute Code(s): I50.30 - Unspecified diastolic (congestive) heart failure Qualifiers: Heart failure chronicity: acute on chronic Qualified Code(s): I50.33 - Acute on chronic diastolic (congestive) heart failure (8) Obesity: Status: Acute Code(s): E66.9 - Obesity, unspecified Qualifiers: Body mass index: unspecified BMI Obesity classification: adult class 1 (BMI 30 - 34.9) Obesity type: due to excess calories Serious obesity comorbidity presence: without serious comorbidity Qualified Code(s): E66.811 - Obesity, class 1; E66.09 - Other obesity due to excess calories Meds Home Medications and Allergies Home Medications ?Medication ?Instructions ?Recorded ?Confirmed ?Type donepezil 10 mg tablet 10 mg PO DAILY 03/12/23 05/10/24 History duloxetine 60 mg capsule,delayed 60 mg PO DAILY 03/12/23 05/10/24 History release levothyroxine 125 mcg tablet 125 mcg PO DAILYDM 03/12/23 05/10/24 History memantine 5 mg tablet 5 mg PO BID 10/14/23 05/10/24 History apixaban 5 mg tablet (Eliquis) 5 mg PO BID #180 tabs 11/08/23 05/10/24 Rx alendronate 70 mg tablet 70 mg PO WEEKLY 02/12/24 05/10/24 History buspirone 30 mg tablet 30 mg PO BID 02/12/24 05/10/24 History guaifenesin 600 mg tablet, 600 - 1,200 mg PO BID 02/12/24 05/11/24 History extended release 12 hr albuterol sulfate 90 mcg/actuation 2 puff inhalation Q4HP PRN 02/13/24 05/10/24 History aerosol inhaler (Ventolin HFA) shortness of breath or wheezing budesonide-formoterol HFA 160 2 inh inhalation BID 02/13/24 05/11/24 History mcg-4.5 mcg/actuation aerosol inhaler (Breyna) atorvastatin 40 mg tablet 40 mg PO HS 30 days #30 tabs 02/15/24 05/10/24 Rx hydroxyzine HCl 50 mg tablet 25 - 50 mg PO Q6HP PRN anxiety 03/08/24 05/11/24 History acetazolamide 250 mg tablet 500 mg (2 x 250 mg) PO BID 30 days 05/14/24 Rx #120 tabs bumetanide 2 mg tablet 2 mg PO BID 30 days #60 tabs 05/14/24 Rx diltiazem HCl 120 mg 120 mg PO DAILY 30 days #30 caps 05/14/24 Rx capsule,extended release 24 hr fluticasone fur. 100 mcg-umeclid 1 inh inhalation DAILY 30 days #60 05/14/24 Rx 62.5 mcg-vilant 25 mcg ea inhalat.powder (Trelegy Ellipta) levofloxacin 750 mg tablet 750 mg PO DAILY 1 day #1 tab 05/14/24 Rx metoprolol tartrate 25 mg tablet 25 mg PO BID 30 days #60 tabs 05/14/24 Rx New Prescriptions to Start Prescriptions: acetazolamide Robert Gan bumetanide Malik,Robert diltiazem HCl Robert Gan [id number] [Trelegy Ellipta] Robert Gan levofloxacin Robert Gan metoprolol tartrate Robert Gan Allergies Allergy/AdvReac Type Severity Reaction Status Date / Time sulfamethoxazole (From AdvReac Mild Nausea Verified 04/19/24 13:26 Bactrim) trimethoprim (From Bactrim) AdvReac Mild Nausea Verified 04/19/24 13:26 Discharge Plan Disposition Patient Disposition: Home Health Service Condition: Fair Discharge Order Discharge Orders: Discharge Order (Routine); Ordered 05/14/24 Ordered By: Robert Gan Follow up Plan Follow up with: Lulú Mendez APRN [Nurse Practitioner] - 05/18/24 9:15 am Laxmi Slaughter MD [Physician] - 05/15/24 2:00 pm Prescriptions/Medication Reconciliation: New acetazolamide 250 mg Tablet 500 mg PO BID 30 Days Qty: 120 0RF diltiazem HCl 120 mg Capsule,Extended Release 24hr 120 mg PO DAILY 30 Days Qty: 30 0RF metoprolol tartrate 25 mg Tablet 25 mg PO BID 30 Days Qty: 60 0RF Trelegy Ellipta 100-62.5-25 mcg Blister With Device 1 inh inhalation DAILY 30 Days Qty: 60 0RF bumetanide 2 mg tablet 2 mg PO BID 30 Days Qty: 60 0RF levofloxacin 750 mg tablet 750 mg PO DAILY 1 Days Qty: 1 0RF Rx Instructions: take once on 05/15/24 Continued Eliquis 5 mg tablet 5 mg PO BID Qty: 180 2RF hydroxyzine HCl 50 mg tablet 25 - 50 mg PO Q6HP PRN (Reason: anxiety) Patient Comments: TAKE 1/2 TO 1 TABLET BY MOUTH EVERY 6 HOURS NEEDED FOR ANXIETY donepezil 10 mg tablet 10 mg PO DAILY Patient Comments: TAKE 1 TABLET BY MOUTH DAILY levothyroxine 125 mcg tablet 125 mcg PO DAILYDM duloxetine 60 mg capsule,delayed release(DR/EC) 60 mg PO DAILY Patient Comments: TAKE 1 CAPSULE BY MOUTH DAILY memantine 5 mg tablet 5 mg PO BID alendronate 70 mg tablet 70 mg PO WEEKLY buspirone 30 mg tablet 30 mg PO BID guaifenesin 600 mg tablet extended release 12hr 600 - 1,200 mg PO BID budesonide-formoterol [Breyna] 160-4.5 mcg/actuation HFA aerosol inhaler 2 inh INHALATION BID Patient Comments: INHALE 2 PUFFS BY MOUTH TWICE DAILY albuterol sulfate [Ventolin HFA] 90 mcg/actuation HFA aerosol inhaler 2 puff inhalation Q4HP PRN (Reason: shortness of breath or wheezing) atorvastatin 40 mg Tablet 40 mg PO HS 30 Days Qty: 30 0RF Discontinued atenolol 25 mg tablet 25 mg PO DAILY Patient Comments: TAKE 1 TABLET BY MOUTH DAILY amlodipine 5 mg tablet 5 mg PO DAILY Problem Reconciliation Problems Reviewed?: Yes Patient Discharge Instructions ACTIVITY: Continue current activity DIET: continue same diet Patient Instructions: Congestive Heart Failure (Alternative Therapy), Heart Failure, How to [place] With Heart Failure, Respiratory Failure Print Language: Moroccan Providers Primary Care Provider: Earl Dumont Admit Provider: Robert Gan Attending Provider: Robert Gan
--- NOTE | 2024-05-16 09:54 | SW/DCPLANNER ---
Addendum entered by Florencia Jacome 05/16/24 13:03: Spoke with [facility] and they are able to accept patient. Marium Mathew Original Note: Spoke with patients family member on the phone. Patients family member stated that shes doing okay. Patients family member stated that her appointment she had yesterday they had to reschedule and the one on the they will probaly reschedule to being too early for the patient. Patients family member stated that she was able to get her medicine from [facility]. Patients family member stated that they have no concerns or questions at this time. Marium Mathew Spoke with patients family member on the phone and asked them if patient would be interested in home health services and they said yes and that patient prefers [facility]. I faxed patients info to [facility] and will update if [facility] can accept patient or not. Marium Mathew
== END 2024-05-14 13:53 | disposition home health service (06) | DRG 189 ==
LOC: ER 15:29 → 2ND 16:42
PROVIDERS: Emergency Medicine; Nurse Practitioner Acute Care; Admitting Provider Internal Medicine Adolescent Medicine; Emergency Provider Emergency Medicine; PCP Family Medicine; Visit Provider Internal Medicine Adolescent Medicine
DX: J96.21 Acute and chronic respiratory failure with hypoxia (principal); G93.41 Metabolic encephalopathy; J18.9 Pneumonia, unspecified organism; I50.33 Acute on chronic diastolic (congestive) heart failure; J44.1 Chronic obstructive pulmonary disease with (acute) exacerbation; Z68.41 Body mass index [BMI] 40.0-44.9, adult; I27.82 Chronic pulmonary embolism; J96.22 Acute and chronic respiratory failure with hypercapnia; E66.811 Obesity, class 1; E78.5 Hyperlipidemia, unspecified; I11.0 Hypertensive heart disease with heart failure; E03.9 Hypothyroidism, unspecified; F41.8 Other specified anxiety disorders; F03.90 Unspecified dementia, unspecified severity, without behavioral disturbance, psychotic disturbance, mood disturbance, and anxiety; I48.91 Unspecified atrial fibrillation; R29.6 Repeated falls; Z88.2 Allergy status to sulfonamides; Z88.1 Allergy status to other antibiotic agents; Z79.01 Long term (current) use of anticoagulants; Z79.51 Long term (current) use of inhaled steroids; Z99.81 Dependence on supplemental oxygen
CPT/HCPCS: 36415; 71045; 80048; 80053; 81001; 82803; 83605; 83735; 83880; 84443; 84484; 85025; 85610; 85730; 87040; 87077; 87186; 87633; 93005; 94640; 94668; 94760; 94761; 97110; 97116; 97163; 97165; 97530; 99291; J1756; J1938; J1939; J1956; J2405; J3475; J7614; J7620; J7644

== ENCOUNTER 2024-06-19 11:05 | Outpatient (CLI) | payer MEDICARE, SELFPAY ==
--- NOTE | 2024-06-19 11:09 | FL_ITS ---
FINAL REPORT CLINICAL HISTORY: DYSPHAGIA 3.30 min fluoro time DAP 431.20 FINDINGS: FLUOROSCOPY LESS THAN 1 HOUR HISTORY: Fluoroscopy guidance. FINDINGS: Fluoroscopic guidance was provided for barium swallow. A total of 3.30 minutes of fluoroscopy time were used. DAP: 431.20 mGy IMPRESSION: As above. Reviewed, Interpreted and Dictated by Torey Sloan MD Transcribed by Omayra Pabon Authenticated and [facility]
--- NOTE | 2024-06-19 15:24 | HMH.SLMBS2 ---
Speech & Language Evaluation Speech/Lang Modified Barium Swallow Start: 06/19/24 15:10 Freq: once Status: Complete Protocol: Document 06/19/24 15:10 [email or web address] (Rec: 06/19/24 15:24 [facility] [id number]) LNA Evaluation Information LNA Evaluation Information Date of Evaluation: 06/19/24 Time of Evaluation: 11:00 Evaluation Type Initial Certification Reason for Referral dysphagia per MD order Does Patient Qualify for Service No Qualify/Failure Comment Based on clinical observations made throughout instrumental assessment and pt interview, further skilled speech therapy services are not warranted at this time d/t adequate mastication and manipulation of bolus, as well as safe and efficient oropharyngeal swallow function. Pt would benefit from GI referral d/t complaints of reflux. MBS Recommendations Plan Pt/Guardian verbally ack understanding Yes of dx/prognosis/goals Diet Dietary Recommendations Regular,Thin Liquids SL Swallow Guidelines Standard Aspiration Prec.,Eat at slow rate,Reflux precautions Treatment/Strategies Strategy/Precaution Recommended Sitting Upright (90 deg),Small Bites and Sips,Alternate Liquids/Solids Referral/Other Recommended Referrals GI Consult Comment Pt had complaints of reflux after eating LNA Patient History Section LNA Patient History Primary Medical History Pt expressed PMHx of COPD which she utilized nasal cannula for daily. She expressed she was diagnosed with reflux in the past but was u/a to recall if she took medications for reflux. Does Patient have Reflux or GERD? Yes Does Patient Experience Coughing or No Choking Episodes? Does Patient Avoid Certain Food Textures No /Consistencies? Does Patient Utilize Compensatory No Strategies During Meals? Has Patient Experienced Significant No Weight Loss? Does Pt have Hx of Recurrent Pneumonias Yes or Respiratory Infections? Hx of Recurrent Infection Comment Pt stated she was hospitalized recently with pneumonia. Has Patient Noticed Change in Vocal No Quality? Mod Barium Swallow Study Patient Orientation Patient Orientation Person,Place,Time,Situation Oral Expression Ability No Impairment Ability to Follow Directions Excellent Is Patient able to Perform Volitional Yes Throat Clear? Is Patient able to Perform Volitional Yes Cough? Is Patient able to Manage Secretions Yes Independently? Mod Barium Swallow Set Up Radiologist [place] Patient Presentation: Awake,Alert,Appropriate, Follows Commands Bolus Consistencies Trialed: Thin Liquids,Pudding,Puree, Mechanical Soft,Regular,Pill ( Barium Tablet) MBSS Observations Consistency & Strategy Trial Regular Penetration/Aspiration Scale 1 PAS Amount Neither Pharyngeal Residual 0-9% Mechanical Soft Penetration/Aspiration Scale 1 PAS Amount Neither Pharyngeal Residual 0-9% Puree Penetration/Aspiration Scale 1 PAS Amount Neither Pharyngeal Residual 0-9% Pudding Penetration/Aspiration Scale 1 PAS Amount Neither Pharyngeal Residual 0-9% Thin Penetration/Aspiration Scale 1 PAS Amount Neither Pharyngeal Residual 0-9% Mod Barium Swallow Impressions Oral Phase Summary & Impressions Oral Phase: Impression Minimal Impairment Oral Phase: Labial Closure No Impairment (WFL) Oral Phase: Bolus Formation Pooling L/R No Impairment (WFL) Oral Phase: Bolus Formation Under Tongue No Impairment (WFL) Oral Phase: Bolus Formation Scattered No Impairment (WFL) Loss Oral Phase: Mastication Rotary Chew Minimal Impairment Oral Phase: Mastication Munching Minimal Impairment Oral Phase: Mastication Lateralization Minimal Impairment Oral Phase: Lingual Movement No Impairment (WFL) Oral Phase: Residue Clearing No Impairment (WFL) Oral Phase: Summary Minimal impairment of oral phase of swallow d/t slightly prolonged mastication and manipulation of bolus c/b fatigue. Pharyngeal Phase Summary & Impressions Pharyngeal Phase: Impression Minimal Impairment Pharyngeal Phase: A/P Lingual Propulsion Minimal Impairment Spills Pharyngeal Phase: Swallow Response Delay No Impairment (WFL) Pharyngeal Phase: Base of Tongue No Impairment (WFL) Pharyngeal Phase: Epiglottic Coverage No Impairment (WFL) Pharyngeal Phase: Laryngeal Elevation No Impairment (WFL) Pharyngeal Phase: Vallecular Retention No Impairment (WFL) Clearing Pharyngeal Phase: Pharyngeal Wall Minimal Impairment Residue Clearing Pharyngeal Phase: Piriform Sinus No Impairment (WFL) Retention Pharyngeal Phase: Summary Minimal impairment of pharyngeal phase of swallow. No aspiration observed on any consistency trialed. A/P lingual propulsion spill into vallecula was observed during mechanical soft trial. Minimal pharyngeal residue observed on posterior pharyngeal wall during mechanical soft and regular trials, which were cleared with subsequent swallow. Aspiration Aspiration? No Silent Aspiration? No LNA MBSS Goals Education Instructions provided LNA discussed clinical observations made throughout instrumental assessment, diet recommendations, aspiration precautions, and GI referral with pt who expressed understanding. Patient/Caregiver Able to Recall Able to recall/restate Information Reinforcement needed No PHYSICIAN CERTIFICATION: I certify the specified therapy services for Patito Garcia are required, authorized, and reviewed every 30 days.
== END 2024-06-19 23:59 | disposition home or self-care (01) ==
LOC: RAD 11:05
PROVIDERS: PCP Family Medicine; Visit Provider Family Medicine
DX: R13.10 Dysphagia, unspecified (principal)
CPT/HCPCS: 74230; 92611

== ENCOUNTER 2024-07-10 03:34 | Inpatient (IN) | payer MEDICARE, SELFPAY ==
[2024-07-10] VITALS (36 sets, daily range): BP systolic 64–156; BP diastolic 29–64; PULSE 75–126; RESP 15–23; TEMP 36.4–36.9; O2SAT 89–100; BMI 42.8
--- NOTE | 2024-07-10 03:40 | XR_ITS ---
PROCEDURE INFORMATION: Exam: XR Chest Exam date and time: 07/10/2024 4:09 AM Age: 79 years old Clinical indication: Shortness of breath; Additional info: SOA TECHNIQUE: Imaging protocol: Radiologic exam of the chest. Views: 1 view. COMPARISON: CR XR CHEST PORTABLE 05/10/2024 1:55 PM FINDINGS: Lungs: Opacities projecting over the left lower lobe likely corresponding with patient's known hiatal hernia. Cannot exclude a superimposed infectious process. Pleural spaces: Unremarkable. No pleural effusion. No pneumothorax. Heart/Mediastinum: Unremarkable. No cardiomegaly. Vasculature: Aortic calcifications. Bones/joints: Unremarkable. IMPRESSION: Opacities projecting over the left lower lobe likely corresponding with patient's known hiatal hernia. Cannot exclude a superimposed infectious process.
[2024-07-10 03:48] LABS: Basophils # 0.1 K/mm3 (0-0.2); Basophils % 0.9 % (0.1-2.0); Eosinophils # 0.2 Kmm3 (0.0-0.4); Eosinophils % 2.5 % (0.1-12.0); Hematocrit 40.5 % (37.0-47.0); Immature Granulocytes # 0.02 10^3uL; Immature Granulocytes % 0.2 %; Lymphocytes % 42.4 % (10-50); Mean Corpuscular HGB Conc 29.6 g/dL (31.8-35.4); Mean Corpuscular Hemoglobin 27.3 pg (27.0-31.2); Mean Corpuscular Volume 92.3 fl (81-99); Mean Platelet Volume 12.7 fl (7.4-10.4); Monocytes # 0.9 K/mm3 (0.1-1.0); Monocytes % 9.5 % (1.7-9.3); Neutrophils # 4.2 K/mm3 (1.8-7.8); Neutrophils % 44.5 % (37.0-80.0); Nucleated Red Blood Cells # 0 10^3/uL; Nucleated Red Blood Cells % 0 %; Platelet Count 199 K/mm3 (142-424); Red Blood Count 4.39 M/mm3 (4.20-5.40); Red Cell Distribution Width 17.4 % (11.5-17.5); Red Cell Distribution Width-SD 59.6 fL; White Blood Count 9.5 K/mm3 (4.8-10.8)
[2024-07-10] MEDS: dilTIAZem 25MG/5ML VIAL 15 MG IV (03:53)
--- NOTE | 2024-07-10 03:53 | ECG_ITS ---
APPROVED REPORT Exam: Resting ECG HR:85 bpm ECG Measurements Heart Rate 85 AXES QRSd 85 QRS 59 QT 383 T 30 QTc 426 Conclusion ATRIAL FIBRILLATION POSSIBLE RIGHT VENTRICULAR CONDUCTION DELAY [RSR (QR) IN V1/V2] MODERATE ST DEPRESSION [0.05+ mV ST DEPRESSION] No STEMI Electronically signed by : LEE CADE, 07/10/2024 06:30:56
[2024-07-10] MEDS: RINGERS SOLUTION,LACTATED 500 ML 999 ML IV (03:56)
[2024-07-10 03:57] LABS: Alanine Aminotransferase 17 U/L (12-78); Albumin Level 3.4 g/dl (3.5-5.0); Albumin/Globulin Ratio 1.1 (1.1-1.8); Alkaline Phosphatase 72 U/L (38-126); Aspartate Amino Transferase 37 U/L (14-36); Bilirubin,Total 0.9 mg/dl (0.2-1.3); Blood Urea Nitrogen 13 mg/dl (7-17); Calcium 8.3 mg/dl (8.4-10.2); Chloride 92 mmol/L (98-107); Estimated Glomerular Filt Rate 60 ml/min (>60); GFR (African American) 73 ML/MIN (>60); Globulin 3.2 g/dL (1.3-3.2); Glucose 103 mg/dl (74-100); Potassium 4.1 mmoL/L (3.5-5.1); Sodium 137 mmol/L (136-145); Total Protein,Serum 6.6 g/dl (6.3-8.2)
[2024-07-10 04:05] LABS: Anion Gap 7.1 mEq/L (5-15); Carbon Dioxide 42 mmol/L (22.0-30.0)
[2024-07-10 04:09] LABS: INR 1.08 (0.9-1.1); Prothrombin Time 11.9 seconds (10.1-12.5)
[2024-07-10 04:09] LABS: NT Pro Brain Natriuretic Pep. 2370 pg/mL (0-450); Troponin I 0.04 ng/ml (0.00-0.034)
--- NOTE | 2024-07-10 04:12 | ECG_ITS ---
APPROVED REPORT Exam: Resting ECG HR:126 bpm ECG Measurements Heart Rate 126 AXES QRSd 90 QRS 53 QT 339 T 12 QTc 413 Conclusion ATRIAL FIBRILLATION WITH RAPID VENTRICULAR RESPONSE POSSIBLE RIGHT VENTRICULAR CONDUCTION DELAY [RSR (QR) IN V1/V2] ST DEPRESSION, CONSIDER SUBENDOCARDIAL INJURY [0.1+ mV ST DEPRESSION] No STEMI Electronically signed by : LEE CADE, 07/11/2024 06:31:25
[2024-07-10 04:15] LABS: D-Dimer 0.47 ug/mL (0.0-0.5)
[2024-07-10 04:26] LABS: Lactate Venous 1.7 mmol/L (0.4-2.0); VBG Base Excess -3.3 mmol/L (-2.4-2.3); VBG HCO3 19.5 mmol/L (23-30); VBG Oxygen Saturation 99.3 % (50-70); VBG PH 7.52 mmol/L (7.31-7.41); VBG PO2 163.2 mmol/L (28-40); VBG Total CO2 20.3 mmol/L (23-27)
[2024-07-10 04:27] LABS: VBG PCO2 24.4 mmol/L (35-51)
--- NOTE | 2024-07-10 04:42 | [facility].EDCP ---
Discharge Plan Disposition Patient Disposition: Admitted Condition: Fair Prescriptions Prescriptions: No Action Eliquis 5 mg tablet 5 mg PO BID Qty: 180 2RF hydroxyzine HCl 50 mg tablet 25 - 50 mg PO Q6HP PRN (Reason: anxiety) Patient Comments: TAKE 1/2 TO 1 TABLET BY MOUTH EVERY 6 HOURS NEEDED FOR ANXIETY acetazolamide 250 mg Tablet 500 mg PO BID 30 Days Qty: 120 0RF diltiazem HCl 120 mg Capsule,Extended Release 24hr 120 mg PO DAILY 30 Days Qty: 30 0RF metoprolol tartrate 25 mg Tablet 25 mg PO BID 30 Days Qty: 60 0RF Trelegy Ellipta 100-62.5-25 mcg Blister With Device 1 inh inhalation DAILY 30 Days Qty: 60 0RF bumetanide 2 mg tablet 2 mg PO BID 30 Days Qty: 60 0RF donepezil 10 mg tablet 10 mg PO DAILY Patient Comments: TAKE 1 TABLET BY MOUTH DAILY levothyroxine 125 mcg tablet 125 mcg PO DAILYDM duloxetine 60 mg capsule,delayed release(DR/EC) 60 mg PO DAILY Patient Comments: TAKE 1 CAPSULE BY MOUTH DAILY memantine 5 mg tablet 5 mg PO BID alendronate 70 mg tablet 70 mg PO WEEKLY buspirone 30 mg tablet 30 mg PO BID budesonide-formoterol [Breyna] 160-4.5 mcg/actuation HFA aerosol inhaler 2 inh INHALATION BID Patient Comments: INHALE 2 PUFFS BY MOUTH TWICE DAILY albuterol sulfate [Ventolin HFA] 90 mcg/actuation HFA aerosol inhaler 2 puff inhalation Q4HP PRN (Reason: shortness of breath or wheezing) atorvastatin 40 mg Tablet 40 mg PO HS 30 Days Qty: 30 0RF Referrals Follow up/Referrals: Provider,Referral, [Primary Care Provider, Medical] - See instructions Clinical Impressions Clinical Impression: Atrial fibrillation with rapid ventricular response Print Language Print Language: Greek Discharge ED Provider: Kacey Vásquez General Chief Complaint: Shortness of Breath/Dyspnea Stated Complaint: SOA Time Seen by Provider: 07/10/24 03:35 Mode of Arrival: EMS Source of Information: EMS Description of Symptoms (Recalled from ER Triage Doc. by RN): EMS states family called stating pt was satting in 70s on her baseline oxygen and very SOA. Pts only complaint on arrival is some mild back pain. 97% on 3 L nc. History of Present Illness HPI narrative: 79-year-old female presents to the ER via EMS. EMS reports family called stating the patient was satting in the 70s on her baseline oxygen and is very short of breath. Patient's only complaint on arrival was mild back pain. Patient is an extremely poor historian and difficult to obtain history from. When questioned further she stated she has been feeling short of breath for the last day or so and reports maybe having a little chest pain or earlier in the afternoon. She also states she thought her legs were maybe a bit more swollen than normal. She reports being compliant with her medications. EMS reports patient was found in atrial fibrillation with RVR, heart rate in the 120s to 140s, she was also borderline hypotensive. No medications administered in route. Patient reports not knowing anything about atrial fibrillation and having never heard of it before, however she is already on apixaban and review of records from most recent admission demonstrates she had atrial fibrillation at that time. Patient denies recent illness. No other complaints or concerns. Related Data Home Medications ?Medication ?Instructions ?Recorded ?Confirmed donepezil 10 mg tablet 10 mg PO DAILY 03/12/23 06/19/24 duloxetine 60 mg capsule,delayed 60 mg PO DAILY 03/12/23 06/19/24 release levothyroxine 125 mcg tablet 125 mcg PO DAILYDM 03/12/23 06/19/24 memantine 5 mg tablet 5 mg PO BID 10/14/23 06/19/24 alendronate 70 mg tablet 70 mg PO WEEKLY 02/12/24 06/19/24 buspirone 30 mg tablet 30 mg PO BID 02/12/24 06/19/24 albuterol sulfate 90 mcg/actuation 2 puff inhalation Q4HP PRN 02/13/24 06/19/24 aerosol inhaler (Ventolin HFA) shortness of breath or wheezing budesonide-formoterol HFA 160 2 inh inhalation BID 02/13/24 06/19/24 mcg-4.5 mcg/actuation aerosol inhaler (Breyna) hydroxyzine HCl 50 mg tablet 25 - 50 mg PO Q6HP PRN anxiety 03/08/24 06/19/24 Previous Rx's ?Medication ?Instructions ?Recorded apixaban 5 mg tablet (Eliquis) 5 mg PO BID #180 tabs 11/08/23 atorvastatin 40 mg tablet 40 mg PO HS 30 days #30 tabs 02/15/24 acetazolamide 250 mg tablet 500 mg (2 x 250 mg) PO BID 30 days 05/14/24 #120 tabs bumetanide 2 mg tablet 2 mg PO BID 30 days #60 tabs 05/14/24 diltiazem HCl 120 mg 120 mg PO DAILY 30 days #30 caps 05/14/24 capsule,extended release 24 hr fluticasone fur. 100 mcg-umeclid 1 inh inhalation DAILY 30 days #60 05/14/24 62.5 mcg-vilant 25 mcg ea inhalat.powder (Trelegy Ellipta) metoprolol tartrate 25 mg tablet 25 mg PO BID 30 days #60 tabs 05/14/24 Allergies Allergy/AdvReac Type Severity Reaction Status Date / Time sulfamethoxazole (From AdvReac Mild Nausea Verified 06/19/24 13:01 Bactrim) trimethoprim (From Bactrim) AdvReac Mild Nausea Verified 06/19/24 13:01 [facility] Disclaimer: The information contained in this section may have been updated after the patient was seen, as this information can be updated by other users. Medical History Acute on chronic heart failure with preserved ejection fraction (HFpEF) Depression Anxiety Pulmonary embolism Osteoarthritis Skin cancer SOB (shortness of breath) on exertion Abnormal echocardiogram Hyperlipidemia (HFpEF) heart failure with preserved ejection fraction CAD (coronary artery disease) HTN (hypertension) Heart failure Elevated troponin Chronic respiratory failure with hypoxia History of COPD Second hand smoke exposure Surgical History History of left knee replacement Family History Other No significant family history Social History Smoking Status: Never smoker alcohol intake: never current occupational status: retired Travel in the last 8 weeks?: None Have you lived/traveled outside [place] in past 30 days?: No Contact w/someone who lives/traveled outside [place] past 30 days?: No Exposure to someone with infectious disease in past 14 days?: No Do you have a fever (greater than 100.4 F or 38 C)?: No Have you tested positive for COVID-19?: No Exposed to someone with COVID-19 in past 14 days?: No Do you have a sore throat?: No Do you have a cough?: No Do you have any weakness?: No Do you have any diarrhea?: No Are you experiencing any unusual bleeding?: No Do you have any muscle aches/pain?: No Do you have any abdominal pain?: No Are you experiencing loss of taste or smell?: No Other Medical History Have you received the Flu Vaccine for this season: No Have you received the Pneumonia Vaccine: No ROS Obtained: Yes Systems reviewed as appropriate & no additional complaints except as documented Per HPI Physical Exam General General appearance: alert, in no apparent distress and obese Head Head exam: atraumatic and normocephalic Eye Eye exam: Present PERRL and EOMI ENT ENT exam: Present mucous membranes moist Neck Neck exam: Present normal inspection and full ROM Chest Chest inspection: Present symmetric chest wall rise Respiratory Respiratory exam: Present normal lung sounds bilaterally; Absent respiratory distress, wheezes or stridor Cardiovascular Cardiovascular exam: Present tachycardia and irregular rhythm Abdominal Exam Abdominal exam: Present soft; Absent distention or tenderness Extremities Exam Extremities exam: Present full ROM and edema (Mild +1 bilaterally) Neurological Exam Neurological exam: Present alert, oriented X3 and other (GCS 15); Absent motor sensory deficit Psychiatric Psychiatric exam: Present normal affect and normal mood Skin Skin exam: Present warm and dry HEART Score HEART Score HEART Score assessment performed?: Yes History (anamnesis): Slightly suspicious ECG: Non-specific disturbance Age: >65 years Risk factors: Atherosclerosis history Troponin: 1-3x normal limit HEART Score: 6 Critical Care Critical Care Time Critical Care Time: Yes Attestation: On 07/10/24, the high probability of a clinically significant, sudden or life threatening deterioration of the following system(s) (cardiac) required my full and direct attention, intervention and personal management. The time I documented below is in addition to time spent performing reported procedures but includes the following listed in this critical care notation. Total Time Total Critical Care Time: 45 Medical Decision Making Medical Records Medical records reviewed: Yes I reviewed the patient's medical records. [place] Inquiry Pt receiving controlled substance: No Vital Signs Vital Signs: 07/10/24 03:34 07/10/24 03:39 07/10/24 03:41 Temperature 97.6 F 97.6 F Temperature Source Oral Oral Pulse Rate 126 H 123 H Pulse Rate [Right Radial] 122 H Respiratory Rate 17 18 21 Blood Pressure 90/37 L 69/33 L Blood Pressure [Left Arm] 90/37 L Blood Pressure Mean [Left Arm] 54 Blood Pressure Source Automatic Cuff Automatic Cuff Blood Pressure Source [Left Arm] Automatic Cuff Blood Pressure Position Supine Supine 02 Sat by Pulse Oximetry 99 92 L 99 Oxygen Delivery Method Nasal Cannula Nasal Cannula Nasal Cannula Oxygen Flow Rate (LPM) 3 3 3 07/10/24 03:41 07/10/24 03:44 07/10/24 03:48 Temperature Temperature Source Pulse Rate 125 H 121 H 97 H Pulse Rate [Right Radial] Respiratory Rate 23 21 Blood Pressure 70/35 L 64/36 L 68/42 L Blood Pressure [Left Arm] Blood Pressure Mean [Left Arm] Blood Pressure Source Automatic Cuff Automatic Cuff Manual Cuff/ Auscultation Blood Pressure Source [Left Arm] Blood Pressure Position Supine Supine Supine 02 Sat by Pulse Oximetry 100 95 100 Oxygen Delivery Method Nasal Cannula Nasal Cannula Nasal Cannula Oxygen Flow Rate (LPM) 3 3 3 07/10/24 03:58 07/10/24 04:08 07/10/24 04:30 Temperature Temperature Source Pulse Rate 75 84 Pulse Rate [Right Radial] Respiratory Rate 18 15 Blood Pressure 86/42 L 96/43 L 119/48 L Blood Pressure [Left Arm] Blood Pressure Mean [Left Arm] Blood Pressure Source Manual Cuff/ Auscultation Automatic Cuff Automatic Cuff Blood Pressure Source [Left Arm] Blood Pressure Position Supine Supine Supine 02 Sat by Pulse Oximetry 90 L 92 L Oxygen Delivery Method Nasal Cannula Nasal Cannula Oxygen Flow Rate (LPM) 3 3 Lab Data Labs: Lab Results 07/10/24 03:05: WBC 9.5, RBC 4.39, Hgb 12.0 L, Hct 40.5, MCV 92.3, MCH 27.3, MCHC 29.6 L, RDW 17.4, Plt Count 199, MPV 12.7 H, Neut % (Auto) 44.5, Lymph % (Auto) 42.4, Tripp % (Auto) 9.5 H, Eos % (Auto) 2.5, Baso % (Auto) 0.9, Neut # (Auto) 4.2, Lymph # (Auto) 4.0, Tripp # (Auto) 0.9, Eos # (Auto) 0.2, Baso # (Auto) 0.1, Sodium 137, Potassium 4.1, Chloride 92 L, Carbon Dioxide 42 H*, Anion Gap 7.1, BUN 13, Creatinine 0.90, Estimated GFR 60, Est GFR ( Amer) 73, Glucose 103 H, Calcium 8.3 L, Total Bilirubin 0.9, AST 37 H, ALT 17, Alkaline Phosphatase 72, Troponin I 0.04 H, NT-Pro-B Natriuret Pep 2370 H, Total Protein 6.6, Albumin 3.4 L, Globulin 3.2, Albumin/Globulin Ratio 1.1 07/10/24 03:40: VBG pH 7.52 H, VBG pCO2 24.4 L, VBG pO2 163.2 H, VBG HCO3 19.5 L, VBG Total CO2 20.3 L, VBG O2 Saturation 99.3 H, VBG Base Excess -3.3 L, VBG Lactic Acid 1.7 07/10/24 03:45: D-Dimer 0.47 07/10/24 03:05 07/10/24 03:05 Response Orders (Tests/Meds): ED MEDICATIONS Generic Name Dose Route Start Last Admin Trade Name Freq PRN Reason Stop Dose Admin Amiodarone HCl 900 mg/ 518 mls @ 34.533 mls/hr 07/10/24 04:15 Dextrose IV 07/10/24 19:15 .[id number] KEYSHA Protocol 1 MG/MIN Discontinued Medications Generic Name Dose Route Start Last Admin Trade Name Freq PRN Reason Stop Dose Admin Diltiazem HCl 15 mg 07/10/24 03:38 07/10/24 03:53 Diltiazem 25mg/5ml Vial IV 07/10/24 03:39 15 mg ONCE ONE Administration Lactated Ringer's 500 mls @ 999 mls/hr 07/10/24 03:41 07/10/24 03:56 Lactated Ringer's 500ml IV 07/10/24 04:11 999 mls/hr .Q31M ONE Administration Amiodarone HCl 150 mg/ 103 mls @ 618 mls/hr 07/10/24 03:59 Dextrose IV 07/10/24 04:08 ONCE ONE Protocol ORDERS Category Date Time Status CXR --portable [XR chest portable] Stat Exams 07/10/24 03:40 Taken BNP [NT Pro Brain Natriuretic Pep.] Stat Lab 07/10/24 03:05 Completed CBC w/Auto Diff [Complete Blood Count Auto Diff] Stat Lab 07/10/24 03:05 Completed CMP [Comprehensive Metabolic Panel] Stat Lab 07/10/24 03:05 Completed D-Dimer Stat Lab 07/10/24 03:45 Completed PT INR [Prothrombin Time INR] Stat Lab 07/10/24 03:45 Received Trop I [Troponin I] Stat Lab 07/10/24 03:05 Completed Troponin I Q3H Lab 07/10/24 06:45 Ordered Troponin I Q3H Lab 07/10/24 09:45 Ordered VBG [Venous Blood Gas] Stat RT 07/10/24 03:40 Completed MDM Narrative Medical Decision Narrative: In summary, this 79-year-old female with comorbidities described in the HPI presents to the emergency department today with shortness of breath and atrial fibrillation with rapid ventricular response. On initial evaluation patient is in A-fib with RVR, borderline hypotensive on arrival, mild peripheral edema, lungs clear bilaterally saturating well on home 3 L nasal cannula. Differential diagnosis includes but is not limited to COPD exacerbation, CHF exacerbation, atrial fibrillation, ACS, PE, pleural effusion, pneumonia, electrolyte abnormality, among others. Ruling out the most morbid conditions drove my assessment. Immediately after assessing the patient ordered 15 mg IV diltiazem for rate control. I anticipate that by controlling patient's rate her blood pressure will also improve. Additionally IV fluids were ordered. I do not want to fluid overload the patient given her history of CHF on diuretics, however I anticipate this will help her overall clinical picture and blood pressure. Additionally I had considered electric cardioversion, however I do not know how long the patient has been in atrial fibrillation given she has a history of it so I do not believe this is a good option at this time due to risk of stroke. Initial EKG on arrival personally interpreted had demonstrated atrial fibrillation with rapid ventricular response, rate 126, normal axis, normal QTc, diffuse ST depressions which I believe are related to her rate and less likely to ischemia. Patient received IV diltiazem and her heart rate began to improve. She got progressively more hypotensive while remaining in atrial fibrillation despite her rate improving, IV fluids were being pressure bagged, she continued mentating well with brisk capillary refill despite her low blood pressure. Repeat ECG personally interpreted after receiving diltiazem demonstrated atrial fibrillation with rate 85, normal axis, normal QTc, ST depressions have resolved, no STEMI. Her blood pressure began to slightly improve, however I reached out to Dr. Pope by phone and consulted him regarding this patient. We discussed her presentation, improvement in right but not significant improvement in blood pressures so far. He recommended amiodarone bolus and drip, Candido-Synephrine if needed, and admission to the hospital to remain n.p.o. for BLESSING and cardioversion. Patient continued having improvement in her heart rate, blood pressure slowly improved, and before the amiodarone was administered she spontaneously converted to sinus rhythm. After patient appeared to convert to sinus rhythm on the monitor, 30 ECG was performed and personally interpreted demonstrating sinus rhythm, rate 78, normal axis, normal [place] and QTc, no STEMI. Since patient spontaneously converted, I again consulted Dr. Pope and he recommended not doing the amiodarone at this time since her blood pressure was better but still soft. He stated they could start that inpatient if needed. Labs personally reviewed demonstrate no leukocytosis, mild anemia improved from previous, normal platelets, D-dimer normal at 0.47 reassuring against PE, I do not believe CTA is indicated at this time. CMP demonstrates elevated carbon dioxide but this is similar to prior, 2370 improved from May when patient was admitted to the hospital. Given patient was hypotensive on arrival and responded well to fluid repletion, will not diurese at this time. VBG with pH 7.52, hypocarbia likely related to rapid respirations on arrival, VBG lactate normal at 1.7. Initial troponin 0.04, I have low suspicion for ischemic injury and suspect that this is related to demand from patient having been significantly tachycardic. She has had mild troponin elevations in the past as well. On reassessment after remaining in sinus rhythm, patient's blood pressure has normalized, heart rate remains in the 80s, she states she feels much better. I recommended admission to the patient for continued management and cardiology evaluation. Patient and family required explanation and education to understand the severity of the situation she was in and the reasons for admission, but after discussion they were all agreeable. I discussed this case with the hospitalist including recommendations from cardiology and patient's improvement since arrival. Patient was accepted for admission.
--- NOTE | 2024-07-10 05:03 | PC.NURSE ---
Called report to Marbella Lebron RN
--- NOTE | 2024-07-10 05:26 | P.HP_ITS ---
<Statement entered by Robert Gan MD - 07/10/24 16:55> Rounded on patient after nurse practitioner. Personally examined and interviewed patient. Agree with exam findings and care plan as documented. History of Present Illness *Admission Date: 07/10/24 *Reason for visit:: Short of breath with A-fib RVR *History of present illness: Ms. Garcia that we know was recently discharged on 05/14/2024 for similar episode. She has been on a beta-debbie calcium channel debbie and anticoagulation at home and went back into atrial fib with RVR having significant shortness of breath and hypoxia. Ambulance was called and she was brought to the emergency room. Patient was given a IV bolus dose of Cardizem and was getting ready to start on amiodarone when converted back to sinus rhythm. The ER physician had been speaking with Dr. Pope on the phone. Plans at this time to admit her were talked about and if so a BLESSING would be done in the morning so she will be kept n.p.o. When I came in to see the patient she was doing much better still wearing oxygen family members in the room with her. Stated that she had been in an emotional crisis as there was some family issue earlier today.., She is not comfortable in the bed with oxygen saturations at 95% heart rate sinus rhythm in the 80s skin Tok warm and dry in no distress From the patient's history and talking with her she uses a walker to get around the house and she is able to get from 1 room to the other but this takes effort and she does become short of breath when doing this. But noted that she is still being able to use the bathroom by herself. Her memory is a little bit blunted but she is appropriate and does answer most questions well. From discharge note is supposed to be on metoprolol 25 mg twice a day that is from 01 June. Patient be put on the floor will repeat EKG now that she is out of atrial fibs is in sinus rhythm on monitor beside the bed. [facility] Disclaimer: The information contained in this section may have been updated after the patient was seen, as this information can be updated by other users. Medical History Acute on chronic heart failure with preserved ejection fraction (HFpEF) Depression Anxiety Pulmonary embolism Osteoarthritis Skin cancer SOB (shortness of breath) on exertion Abnormal echocardiogram Hyperlipidemia (HFpEF) heart failure with preserved ejection fraction CAD (coronary artery disease) HTN (hypertension) Heart failure Elevated troponin Chronic respiratory failure with hypoxia History of COPD Second hand smoke exposure Surgical History History of left knee replacement Family History Other No significant family history Social History (Updated 07/10/24 @ 05:36 by Natalie Lebron RN) Smoking Status: Never smoker alcohol intake: never current occupational status: retired Travel in the last 8 weeks?: None Have you lived/traveled outside [place] in past 30 days?: No Contact w/someone who lives/traveled outside US past 30 days?: No Exposure to someone with infectious disease in past 14 days?: No Do you have a fever (greater than 100.4 F or 38 C)?: No Have you tested positive for COVID-19?: No Exposed to someone with COVID-19 in past 14 days?: No Do you have a sore throat?: No Do you have a cough?: No Do you have any weakness?: No Are you experiencing any nausea/vomitting?: No Do you have any diarrhea?: No Are you experiencing any unusual bleeding?: No Do you have any muscle aches/pain?: No Do you have any abdominal pain?: No Are you experiencing loss of taste or smell?: No Other Medical History Have you received the Flu Vaccine for this season: No Have you received the Pneumonia Vaccine: No Review of Systems Review of Systems Review of systems:: pertinent systems reviewed and negative unless documented below Constitutional Constitutional: Reports as per HPI and Reports weakness Comments: Patient generalized weak having difficulty ambulating Eyes Eyes: Reports as per HPI ENT Ears, Nose, Mouth, and Throat: Reports as per HPI Comments: Patient notes that she is hard of hearing *Cardiovascular Cardiovascular: Reports dyspnea and Reports dyspnea on exertion *Respiratory Respiratory: Reports as per HPI, Reports dyspnea and Reports dyspnea on exertion *Gastrointestinal Gastrointestinal: Reports as per HPI *Genitourinary Genitourinary: Reports as per HPI *Musculoskeletal Musculoskeletal: Reports as per HPI Integumentary/Breasts Skin/Breast: Reports as per HPI Comments: There is a rash in the skin folds. Under breast on the abdomen she has been using powder at home but unsure what type *Neurologic Neurologic: Reports as per HPI and Reports weakness Psychiatric Psychiatric: Reports as per HPI Endocrine Endocrine: Reports as per HPI Hematologic/Lymphatic Hematologic/Lymphatic: Reports as per HPI Allergic/Immunologic Allergic/Immunologic: Reports as per HPI Meds Home Medications and Allergies Home Medications ?Medication ?Instructions ?Recorded ?Confirmed ?Type donepezil 10 mg tablet 10 mg PO HS 03/12/23 5 History duloxetine 60 mg capsule,delayed 60 mg PO DAILY 07/10/24 History release levothyroxine 125 mcg tablet 125 mcg PO DAILYDM 07/10/24 History memantine 5 mg tablet 5 mg PO BID 10/14/23 5 History apixaban 5 mg tablet (Eliquis) 5 mg PO BID #180 tabs 0 11/08/23 07/10/24 Rx alendronate 70 mg tablet 70 mg PO WEEKLY 02/12/2404/04 History buspirone 30 mg tablet 30 mg PO BID 02/12/24 History albuterol sulfate 90 mcg/actuation 2 puff inhalation Q 4HP PRN 02/13/24 07/10/24 History aerosol inhaler (Ventolin HFA) shortness of breath or wheezing atorvastatin 40 mg tablet 40 mg PO HS 30 days #30 tabs 02/15/24 07/10/24 Rx bumetanide 2 mg tablet 2 mg PO BID 30 days #60 tabs 05/14/24 07/10/24 Rx amlodipine 5 mg tablet 5 mg PO DAILY 07/10/2407/10 History atenolol 25 mg tablet 25 mg PO DAILY 07/10/2404/04 History docusate sodium 100 mg capsule 100 mg PO BID 07/10/24 07/10/24 History (Stool Softener) fluticasone 250 mcg-salmeterol 50 1 ea inhalation BID 07/10/24 07/10/24 History mcg/dose blistr powdr for inhalation furosemide 40 mg tablet 40 mg PO DAILY 07/10/2404/04 History sacubitril 49 mg-valsartan 51 mg 1 tab PO BID 07/10/24 07/10/24 History tablet (Entresto) trazodone 150 mg tablet 150 mg PO HS 07/10/24 History New Prescriptions to Start Prescriptions: Allergies Allergy/AdvReac Type Severity Reaction Status Date / Time sulfamethoxazole (From AdvReac Mild Nausea Verified 06/19/24 13:01 Bactrim) trimethoprim (From Bactrim) AdvReac Mild Nausea Verified 06/19/24 13:01 Exam Data for Last 24 hours Vital signs and Labs for Last 24 Hours: Temp Pulse Resp BP Pulse Ox O2 Del Method O2 Flow Rate 97.8 F 85 17 122/41 L 93 L Nasal Cannula 3 07/10/24 05:06 07/10/24 05:06 07/10/24 05:06 07/10/24 05:06 07/10/24 05:01 07/10/24 05:06 07/10/24 05:06 Laboratory Results - last 24 hr 07/10/24 03:05: WBC 9.5, RBC 4.39, Hgb 12.0 L, Hct 40.5, MCV 92.3, MCH 27.3, MCHC 29.6 L, RDW 17.4, Plt Count 199, MPV 12.7 H, Neut % (Auto) 44.5, Lymph % (Auto) 42.4, Arthur % (Auto) 9.5 H, Eos % (Auto) 2.5, Baso % (Auto) 0.9, Neut # (Auto) 4.2, Lymph # (Auto) 4.0, Arthur # (Auto) 0.9, Eos # (Auto) 0.2, Baso # (Auto) 0.1, Sodium 137, Potassium 4.1, Chloride 92 L, Carbon Dioxide 42 H*, Anion Gap 7.1, BUN 13, Creatinine 0.90, Estimated GFR 60, Est GFR ( Amer) 73, Glucose 103 H, Calcium 8.3 L, Total Bilirubin 0.9, AST 37 H, ALT 17, Alkaline Phosphatase 72, Troponin I 0.04 H, NT-Pro-B Natriuret Pep 2370 H, Total Protein 6.6, Albumin 3.4 L, Globulin 3.2, Albumin/Globulin Ratio 1.1 07/10/24 03:40: VBG pH 7.52 H, VBG pCO2 24.4 L, VBG pO2 163.2 H, VBG HCO3 19.5 L , VBG Total CO2 20.3 L, VBG O2 Saturation 99.3 H, VBG Base Excess -3.3 L, VBG Lactic Acid 1.7 07/10/24 03:45: PT 11.9, INR 1.08, D-Dimer 0.47 I & O for Last 24 hours: Intake & Output 07/07/24 07/08/24 07/09/24 07/10/24 05:59 05:59 05:59 05:59 Weight 242 lb Radiology Reports for the Last 24 Hours: Chest x-ray no acute findings improved from last chest x-ray in May Constitutional Constitutional: mild distress, morbidly obese and cooperative *Routine HEENT Exam Head: Present normocephalic and atraumatic Eye: Present EOMI and PERRL ENT: Present mucous membranes moist *Routine Neck Exam Neck: Present supple *Routine Respiratory Exam Respiratory: Present decreased breath sounds, CTA bilaterally, diminished air movement, normal respiratory effort and able to speak in complete sentences *Routine Cardiovascular Exam Cardiovascular: Present RRR, Normal S1 and Normal S2 Comments: Was in atrial fibs presently in normal sinus on monitor in room *Routine Abdominal Exam Abdominal: Present soft, normoactive bowel sounds and obese *Routine Rectal Exam Rectal:: deferred *Routine Genitalia Exam Genitalia:: deferred *Routine Extremities Exam Extremities: Present normal capillary refill Comments: Subtle generalized edema to fingers and lower extremities *Routine Skin Exam Skin: Present intact, dry, warm and rash (In skin folds reddened rash looks to be candidiasis) *Routine Neurological Exam Neurological: Present alert, oriented X3, CN II-XII intact, moving all extremities, vision grossly intact and hearing grossly intact Routine Psychiatric Exam Psychiatric: Present normal affect and cooperative Comments: Patient kind of slow with some responses question how good her short-term memory has H&P: Result Impressions 1. Return of atrial fibs and RVR with hypoxia Imaging and Cardiology Chest x-ray: Status: image reviewed by me Additional comments: Chest x-ray is actually improved from the 1 in May but still some mild effusion to the right lower base, and what appears to be left ventricular hypertrophy Assessment and Plan *Assessment and plan (1) Atrial fibrillation with rapid ventricular response: Status: Acute Category: Medical Code(s): I48.91 - Unspecified atrial fibrillation (2) Acute on chronic heart failure with preserved ejection fraction (HFpEF): Status: Acute Category: Medical Code(s): I50.33 - Acute on chronic diastolic (congestive) heart failure (3) Acute hypercapnic respiratory failure: Status: Acute Category: Medical Code(s): J96.02 - Acute respiratory failure with hypercapnia (4) CHF exacerbation: Status: Acute Qualifiers: Heart failure type: systolic Qualified Code(s): I50.23 - Acute on chronic systolic (congestive) heart failure Category: Medical Code(s): I50.9 - Heart failure, unspecified (5) COPD exacerbation: Status: Acute Category: Medical Code(s): J44.1 - Chronic obstructive pulmonary disease with (acute) exacerbation (6) Difficulty in walking: Status: Acute Category: Medical Code(s): R26.2 - Difficulty in walking, not elsewhere classified Plan Patito Garcia is an 79-year-old female with a medical history significant for COPD on home O2, hypertension, pulmonary embolism, hypertension, dementia, anxiety/depression, hypothyroidism who presents with shortness of breath, fa tigue and tachycardia. Case discussed with ER physician, concern for A-fib with RVR. Requested admission for further management. Medicine agreed to admit. Cardiology consulted to evaluate in the morning. Converted to sinus rhythm around the time of arrival to the floor. Problems addressed as follows #Afib with RVR #NSTEMI #HFpEF -In A-fib RVR on arrival. Started on amiodarone. Converted upon arrival to the floor to sinus rhythm. - Cardiology evaluating today. Plan for left heart cath. Holding Eliquis pending cath. Initiate amiodarone 4 mg twice daily - Initial troponin elevated from 0.04-4.0. - Review of chart from February shows echo with normal EF. Repeat shows normal LV function with mild RV dilation - Continue Bumex 2 mg p.o. twice daily, Lipitor 40 mg nightly. Holding Entresto and amlodipine pending heart cath and further adjustments. - Potassium 4.1, BUN 13, creatinine 0.9. Repeat CBC, CMP, magnesium ordered for the morning. #Chronic hypoxic, hypercapnic respiratory failure #COPD ? Supplemental oxygen as needed, currently on baseline of 2 to 3 L. Goal sats greater 90%. -DuoNebs every 6 hours as needed. -Continue home Trelegy - White count normal at 9.7. Hemoglobin 12. #Falls at home #Physical deconditioning - PT/OT consulted, appreciate recommendations in the morning. Previously recommended SNF placement at last admission. #Chronic pulmonary embolism: Hold home Eliquis pending heart cath, consider resuming tomorrow. #Hypertension: Holding blood pressure medication at this time, will evaluate home regimen and consider resuming in the morning. Patient normotensive at 128/48 #Dementia: resumed home donepezil and memantine #Anxiety/depression: Resumed home buspirone, duloxetine. #Hypothyroidism: Resumed home levothyroxine 125 mcg. TSH 0.16 two months ago. Obesity complicates all aspects of her care. Concern for obesity hypoventilation component to her respiratory failure. Full code Heparinized in [employer], Eliquis twice daily
[2024-07-10 08:22] LABS: Lactate Venous 1.7 mmol/L (0.4-2.0); VBG Base Excess 15.1 mmol/L (-2.4-2.3); VBG HCO3 37.8 mmol/L (23-30); VBG Oxygen Saturation 95.8 % (50-70); VBG PCO2 46.2 mmol/L (35-51); VBG PH 7.53 mmol/L (7.31-7.41); VBG PO2 69.7 mmol/L (28-40); VBG Total CO2 39.2 mmol/L (23-27)
[2024-07-10] MEDS: NYSTATIN TOPICAL POWDER 30GM TP (08:40)
[2024-07-10] MEDS: DOCUSATE SODIUM 100 MG CAPSULE PO ×2 (08:41→20:51)
[2024-07-10] MEDS: LEVALBUTEROL 1.25MG/3ML NEB 1.25 MG IH (09:08)
--- NOTE | 2024-07-10 09:16 | ECG_ITS ---
APPROVED REPORT Exam: Resting ECG HR:82 bpm ECG Measurements Heart Rate 82 AXES SC 157 P 53 QRSd 89 QRS 15 QT 388 T 22 QTc 427 Conclusion SINUS RHYTHM WITH OCCASIONAL SUPRAVENTRICULAR PREMATURE COMPLEXES POSSIBLE RIGHT VENTRICULAR CONDUCTION DELAY [RSR (QR) IN V1/V2] NONSPECIFIC T-WAVE ABNORMALITY BORDERLINE ECG UNCONFIRMED REPORT Electronically signed by : Mike Estrada MD 07/11/2024 09:21:04
[2024-07-10 09:26] LABS: Troponin I 4.03 ng/ml (0.00-0.034)
--- NOTE | 2024-07-10 09:36 | CA_ITS ---
APPROVED REPORT EXAM: Comprehensive 2D, Doppler, and color-flow Echocardiogram Wardrobe Custodian: Kari Lagos RVT Ht: 5 ft 3 in Wt: 242lbs BSA: 2.10 BP: 122/41 mmHg Indications: A-FIB,CAD,HFpEF,ELEVATED TROP,COPD,HTN,HLD TDS-PT SCANNED FLAT ON BACK 2D Dimensions IVSd 1.57 cm F: 0.6-1.0 LVEF (Visual) 60.50 % PWd 1.17 cm F: 0.6 - 1.0 LA Volume 72.60 mL LVDd 3.07 cm F: 3.9 - 5.3 LA Volume Index 34.57 mL/m2 (M/F) 16-34 LVDs 2.11 cm F: 2.2 - 3.5 M-Mode Dimensions LA Diam 4.39 cm (1.9-4.0) TAPSE 2.06 (<1.7) LV Diastology E Decel Time 207 (160-240 msec) E/A Ratio 0.8 Aortic Valve SAFIA Index 1.80 cm2/m2 AoV Peak Zak. 152.0 (50-130 cm/s) AO Peak GR. 9.20 mmHg AO Mean GR. 4.20 (<5 mmHg) AO VTI 26.4 (18-25 cm) SAFIA (VTI) 3.87 (2.5-4.5 cm2) Mitral Valve MV E Max Zak. 112.0 (40-130 cm/s) MV A Velocity 138.0 (40-130 cm/s) E/A Ratio 0.81 MV Mean Gr. 4.30 (<2mmHg) MV PHT 61.0 ms Pulmonary Valve PV Peak Velocity 138.0 (50-150 cm/s) Tricuspid Valve TR P. Velocity 219.00 cm/s RAP Estimate 10.00 mmHg RVSP 29.20 mmHg Left Ventricle The left ventricle is normal size. The left ventricular systolic function is normal. The left ventricular ejection fraction is within the normal range. There is increased LV wall thickness. IVSD is 1.4 cm. There is normal LV segmental wall motion. Diastolic function is indeterminate. LVEF is 60%. Right Ventricle The right ventricle is mildly dilated. Right ventricle is mildly hypokinetic. Atria Left atrium is severely dilated. Right atrium is moderately dilated. There is no Doppler evidence of interatrial shunt. Aortic Valve The aortic valve is mildly thickened. Trace aortic regurgitation. There is no aortic valvular stenosis. Mitral Valve Moderate mitral annular calcification. The mitral valve leaflets are mildly thickened. No evidence of mitral valve stenosis. Mild mitral regurgitation. Tricuspid Valve Tricuspid valve is grossly normal in structure and function. Trace tricuspid regurgitation. There is insufficient TR to estimate RVSP. Trace pulmonic regurgitation. Pulmonic Valve The pulmonary valve is normal in structure. Great Vessels The aortic root is normal in size. IVC is normal in size and collapses >50% with inspiration. Pericardium There is no pericardial effusion. Other Information Study Quality: Fair Conclusion Normal LV systolic function. Mild RV dilation with mild reduction in RV function. Biatrial dilation. Mild MR. Compared to prior study from 02/14/2024, there are no significant changes. Electronically signed by : Lexi Watson MD 07/10/2024 12:53:48
--- NOTE | 2024-07-10 09:58 | IR_ITS ---
APPROVED REPORT Patient Location: Inpatient PROCEDURES Left heart catheterization Left ventriculogram Selective coronary angiogram Intravascular lithotripsy to the mid and distal dominant right coronary artery Drug-eluting stent deployment to the proximal mid and distal dominant right coronary Drug-eluting stent deployment to the mid circumflex artery INDICATION Acute non-ST elevation myocardial infarction, Coronary artery disease, Extensive calcification in the mid to distal dominant right coronary Informed consent was obtained prior to the procedure. COMPLICATIONS none Estimated Blood Loss: less than 10ml TECHNIQUE One percent lidocaine used to anesthetize the right anterior aspect of the wrist. The right radial artery was accessed via the Seldinger technique. A 6 [place] sheath was placed in the right radial artery. 2.5 mg of Verapamil, 800 mcg of nitroglycerin, 1mg Lidocaine and 5000 U Heparin were given through the arterial sheath. The JL3 catheter was also used to perform left heart catheterization, left ventriculogram and selective coronary angiogram. At the end the diagnostic angiogram therapeutic Was administered giving a therapeutic ACT and the guide cath was placed in the right coronary artery followed by Choice PT extra-support wire placed distally into the posterior descending artery. 4 mm x 12 mm intravascular lithotripsy balloon was advanced distally and then deployed at 3 then 4 then 6 trent for 80 pulsations reducing the stenosis. Following this a 4 mm x 38 mm [place] frontier stent was placed distally in the right coronary artery and deployed at 16 trent. An additional 4 mm x 38 mm [place] frontier stent was placed proximal to the for stent yet still overlapping it then deployed at 20 trent. The balloon was advanced and deployed at 20 trent to further post dilate the proximal portion of the first stent placed. MARISA-3 flow was present before and after the procedure. Following this the apparatus was removed from the right coronary and placed in the left main artery with the wire placed down the circumflex artery. A 2.25 x 15 mm [place] frontier stent was deployed at 20 trent reducing the stenosis to 0%. MARISA-3 flow was present before and after the procedure. At the end the procedure the apparatus was removed the sheath was removed and hemostasis was achieved using TR banding patient was transferred to the postop putting in stable condition ANGIOGRAPHIC RESULTS The left main artery Has an ostial 30% stenosis The left anterior descending artery Has proximal 30% stenosis with a mid vessel 60 to 70% stenosis distal to a large first diagonal artery. The circumflex artery Nondominant has a mid vessel 90% concentric stenosis The right coronary artery Massively large and dominant with a mid vessel 60% calcified stenosis distal 70% calcified stenosis with additional distal 70% calcified stenoses. 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 Dual antiplatelet therapy 2. I believe the culprit for the non-STEMI was the circumflex artery and possibly the right coronary artery. 3. Continue monitoring the mid LAD stenosis and consider outpatient stress testing in 4 to 6 weeks to determine if the anterior wall has ischemia. If so bring patient back and stent the mid LAD 4. LDL less than 55 to be achieved with high intensity statin 5. Avoidance of tobacco products 6. Risk factor modification 7. Cardiac rehabilitation Electronically signed by : Dalton Pope MD 07/10/2024 14:02:59
--- NOTE | 2024-07-10 10:15 | HMH.PTEV ---
Physical Therapy Evaluation Rehab PT IP Evaluation Start: 07/10/24 06:37 Freq: ONCE Status: Active Protocol: Document 07/10/24 09:45 TARI (Rec: 07/10/24 09:48 TARI [id number]) Subjective/History History History Per H&P: Ms. Garcia that we know was recently discharged on 05/14/2024 for similar episode. She has been on a beta-debbie calcium channel debbie and anticoagulation at home and went back into atrial fib with RVR having significant shortness of breath and hypoxia. Ambulance was called and she was brought to the emergency room. Patient was given a IV bolus dose of Cardizem and was getting ready to start on amiodarone when converted back to sinus rhythm. The ER physician had been speaking with Dr. Pope on the phone. Plans at this time to admit her were talked about and if so a BLESSING would be done in the morning so she will be kept n.p.o. When I came in to see the patient she was doing much better still wearing oxygen family members in the room with her. Stated that she had been in an emotional crisis as there was some family issue earlier today.., She is not comfortable in the bed with oxygen saturations at 95% heart rate sinus rhythm in the 80s skin [place] warm and dry in no distress From the patient's history and talking with her she uses a walker to get around the house and she is able to get from 1 room to the other but this takes effort and she does become short of breath when doing this. But noted that she is still being able to use the bathroom by herself. Her memory is a little bit blunted but she is appropriate and does answer most questions well. From discharge note is supposed to be on metoprolol 25 mg twice a day that is from 01 June. Patient be put on the floor will repeat EKG now that she is out of atrial fibs is in sinus rhythm on monitor beside the bed. Subjective Subjective Pt reports she lives with her grand daughter. Pt is usually IND with use of RW. Pt lives in a single-story home. Requires intermittent assistance from granddaughter for bathing. On supplemental O2 at baseline. No longer driving. New diagnosis of No cancer in past 12 months? [facility] How much help from another person do you currently need... Turning from your None back to your side while in a flat bed without using bedrails? Moving from lying on None back to sitting on the side of a flat bed without using bedrails? Moving to and from a None bed to a chair ( including a wheelchair)? Standing up from a None chair using your arms? (e.g., wheelchair, bedside chair) Walking in hospital None room? Climbing 3-5 steps A little with a railing? Mobility Score 23 Mobility Level [facility] Mobility 7 Walk 25 feet or more Mobility Calculator Rehab PT IP Eval Objective Appearance Patient Behavior Appropriate,Cooperative Patient Orientation Person Difficulty following none instructions Speech Pattern Clear Ambulation Patient Able to Yes Ambulate Ambulation Observation IP General Gait Wide Based Gait Pattern Observation Ambulation Distance 25 (feet) Ambulation Assistive Rolling Walker Device Ambulation Ability Supervision/Stand by Balance Ability to Arise Able, uses arms to help Sitting Balance Steady, safe Standing Balance Steady, wide stance Dynamic Sitting Good Balance Ability Dynamic Standing Good Balance Ability Transfers Bed Transfer Ability Supervision/Stand by Sit to Stand Bed Supervision/Stand by Transfer Ability Rehab PT IP prob,goals,plan Problems Date of Evaluation: 07/10/24 Rehab Potential Rehab Potential Innapropriate for Skilled Therapy Discharge Plan PT Discharge Plan Pt most appropriate to d/c home with assistance provided as needed by family. PT recommending PT services to address endurance and global strength. Pt not appropriate for acute care PT d/t mobility being at baseline/IND. Eval Complexity Eval Charge Codes 28640 - Moderate Complexity PHYSICIAN CERTIFICATION: I certify the specified therapy services for Patito Garcia are required, authorized, and reviewed every 30 days.
--- NOTE | 2024-07-10 10:26 | EXP.CARD.CON ---
History of Present Illness History of Present Illness Consult date: 07/10/24 Requesting physician: Robert Gan Consult reason: chest pain Chief complaint: chest pain and soa History of present illness: This is an 79-year-old white female with past medical history of bilateral PEs 10/2023 on Eliquis, COPD with chronic hypoxic respiratory failure requiring home oxygen and HFpEF who presented to emergency department last night with complaints of shortness of breath and midsternal chest pressure radiating into back. Upon presentation to ER patient was found to be hypotensive and in A-fib RVR at a rate of 126. Patient was started on diltiazem with improvement of heart rate but remained hypotensive. IV fluids were initiated and blood pressure improved with patient eventually converting to normal sinus rhythm. Initial labs were as follow: WBC 9.5, hemoglobin 12, D-dimer negative, sodium 137, potassium 4.1, creatinine 0.9, AST 37, ALT 17, proBNP 2370 which is improved from previous admission and an initial troponin of 0.04. Chest x-ray shows opacities projecting over the left lower lobe likely corresponding with patient's known history of a hiatal hernia but superimposed infectious process cannot be ruled out. Patient was ultimately admitted for A-fib RVR and chest pain. After admission troponin elevated to 4.03. This morning patient is resting comfortably on 2 L nasal cannula and denies further episodes of chest pain. She reports her shortness of breath has improved. Patient remains in normal sinus rhythm. Echocardiogram is pending. [facility] Disclaimer: The information contained in this section may have been updated after the patient was seen, as this information can be updated by other users. Medical History Acute on chronic heart failure with preserved ejection fraction (HFpEF) Depression Anxiety Pulmonary embolism Osteoarthritis Skin cancer SOB (shortness of breath) on exertion Abnormal echocardiogram Hyperlipidemia (HFpEF) heart failure with preserved ejection fraction CAD (coronary artery disease) HTN (hypertension) Heart failure Elevated troponin Chronic respiratory failure with hypoxia History of COPD Second hand smoke exposure Surgical History History of left knee replacement Family History Other No significant family history Social History (Updated 07/10/24 @ 05:36 by Natalie Lebron RN) Smoking Status: Never smoker alcohol intake: never current occupational status: retired Travel in the last 8 weeks?: None Have you lived/traveled outside US in past 30 days?: No Contact w/someone who lives/traveled outside US past 30 days?: No Exposure to someone with infectious disease in past 14 days?: No Do you have a fever (greater than 100.4 F or 38 C)?: No Have you tested positive for COVID-19?: No Exposed to someone with COVID-19 in past 14 days?: No Do you have a sore throat?: No Do you have a cough?: No Do you have any weakness?: No Are you experiencing any nausea/vomitting?: No Do you have any diarrhea?: No Are you experiencing any unusual bleeding?: No Do you have any muscle aches/pain?: No Do you have any abdominal pain?: No Are you experiencing loss of taste or smell?: No Review of Systems Review of Systems Review of systems:: pertinent systems reviewed and negative unless documented below Constitutional Constitutional: Reports weakness *Cardiovascular Cardiovascular: Reports chest pain, Reports dyspnea on exertion and Reports irregular heart rhythm *Respiratory Respiratory: Reports dyspnea on exertion *Neurologic Neurologic: Reports as per HPI and Reports weakness Exam Data for Last 24 hours Vital signs and Labs for Last 24 Hours: Temp Pulse Resp BP Pulse Ox O2 Del Method O2 Flow Rate 98.1 F 95 H 20 129/48 L 97 Nasal Cannula 2 07/10/24 08:00 07/10/24 09:08 07/10/24 08:00 07/10/24 08:00 07/10/24 09:08 07/10/24 09:08 07/10/24 09:08 Laboratory Results - last 24 hr 07/10/24 03:05: WBC 9.5, RBC 4.39, Hgb 12.0 L, Hct 40.5, MCV 92.3, MCH 27.3, MCHC 29.6 L, RDW 17.4, Plt Count 199, MPV 12.7 H, Neut % (Auto) 44.5, Lymph % (Auto) 42.4, [place] % (Auto) 9.5 H, Eos % (Auto) 2.5, Baso % (Auto) 0.9, Neut # (Auto) 4.2, Lymph # (Auto) 4.0, [place] # (Auto) 0.9, Eos # (Auto) 0.2, Baso # (Auto) 0.1, Sodium 137, Potassium 4.1, Chloride 92 L, Carbon Dioxide 42 H*, Anion Gap 7.1, BUN 13, Creatinine 0.90, Estimated GFR 60, Est GFR ( Amer) 73, Glucose 103 H, Calcium 8.3 L, Total Bilirubin 0.9, AST 37 H, ALT 17, Alkaline Phosphatase 72, Troponin I 0.04 H, NT-Pro-B Natriuret Pep 2370 H, Total Protein 6.6, Albumin 3.4 L, Globulin 3.2, Albumin/Globulin Ratio 1.1 07/10/24 03:40: VBG pH 7.52 H, VBG pCO2 24.4 L, VBG pO2 163.2 H, VBG HCO3 19.5 L, VBG Total CO2 20.3 L, VBG O2 Saturation 99.3 H, VBG Base Excess -3.3 L, VBG Lactic Acid 1.7 07/10/24 03:45: PT 11.9, INR 1.08, D-Dimer 0.47 07/10/24 08:20: VBG pH 7.53 H, VBG pCO2 46.2, VBG pO2 69.7 H, VBG HCO3 37.8 H, VBG Total CO2 39.2 H, VBG O2 Saturation 95.8 H, VBG Base Excess 15.1 H, VBG Lactic Acid 1.7 07/10/24 : Troponin I 4.03 H I & O for Last 24 hours: Intake & Output 07/07/24 07/08/24 07/09/24 07/10/24 23:59 23:59 23:59 23:59 Weight 242 lb Constitutional Constitutional: no acute distress *Routine Respiratory Exam Respiratory: Present wheezes and symmetric chest movement *Routine Cardiovascular Exam Cardiovascular: Present RRR, Normal S1 and Normal S2 *Routine Abdominal Exam Abdominal: Present soft and normoactive bowel sounds; Absent tenderness *Routine Extremities Exam Extremities: Present edema, full ROM and normal capillary refill *Routine Skin Exam Skin: Present intact, dry and warm Detailed Neck Exam: Thyroids Thyroid: Absent bruit Meds Home Medications and Allergies Home Medications ?Medication ?Instructions ?Recorded ?Confirmed ?Type donepezil 10 mg tablet 10 mg PO HS 03/12/23 07/10/24 History duloxetine 60 mg capsule,delayed 60 mg PO DAILY 03/12/23 07/10/24 History release levothyroxine 125 mcg tablet 125 mcg PO DAILYDM 03/12/23 07/10/24 History memantine 5 mg tablet 5 mg PO BID 10/14/23 07/10/24 History apixaban 5 mg tablet (Eliquis) 5 mg PO BID #180 tabs 11/08/23 07/10/24 Rx alendronate 70 mg tablet 70 mg PO WEEKLY 02/12/24 07/10/24 History buspirone 30 mg tablet 30 mg PO BID 02/12/24 07/10/24 History albuterol sulfate 90 mcg/actuation 2 puff inhalation Q4HP PRN 02/13/24 07/10/24 History aerosol inhaler (Ventolin HFA) shortness of breath or wheezing atorvastatin 40 mg tablet 40 mg PO HS 30 days #30 tabs 02/15/24 07/10/24 Rx bumetanide 2 mg tablet 2 mg PO BID 30 days #60 tabs 05/14/24 07/10/24 Rx amlodipine 5 mg tablet 5 mg PO DAILY 07/10/24 07/10/24 History atenolol 25 mg tablet 25 mg PO DAILY 07/10/24 07/10/24 History docusate sodium 100 mg capsule 100 mg PO BID 07/10/24 07/10/24 History (Stool Softener) fluticasone 250 mcg-salmeterol 50 1 ea inhalation BID 07/10/24 07/10/24 History mcg/dose blistr powdr for inhalation furosemide 40 mg tablet 40 mg PO DAILY 07/10/24 07/10/24 History sacubitril 49 mg-valsartan 51 mg 1 tab PO BID 07/10/24 07/10/24 History tablet (Entresto) trazodone 150 mg tablet 150 mg PO HS 07/10/24 07/10/24 History New Prescriptions to Start Prescriptions: Allergies Allergy/AdvReac Type Severity Reaction Status Date / Time sulfamethoxazole (From AdvReac Mild Nausea Verified 06/19/24 13:01 Bactrim) trimethoprim (From Bactrim) AdvReac Mild Nausea Verified 06/19/24 13:01 Assessment and Plan *Assessment and plan (1) Atrial fibrillation with rapid ventricular response: Status: Acute Category: Medical Code(s): I48.91 - Unspecified atrial fibrillation (2) Acute on chronic heart failure with preserved ejection fraction (HFpEF): Status: Acute Category: Medical Code(s): I50.33 - Acute on chronic diastolic (congestive) heart failure (3) Acute hypercapnic respiratory failure: Status: Acute Category: Medical Code(s): J96.02 - Acute respiratory failure with hypercapnia (4) COPD exacerbation: Status: Acute Category: Medical Code(s): J44.1 - Chronic obstructive pulmonary disease with (acute) exacerbation (5) NSTEMI (non-ST elevated myocardial infarction): Status: Acute Category: Medical Code(s): I21.4 - Non-ST elevation (NSTEMI) myocardial infarction Plan Acute onset A-fib RVR Chadsvasc score >2 History of bilateral pulmonary emboli D-dimer negative on admission Initial EKG on presentation was A-fib RVR Converted to normal sinus rhythm after Dilt bolus and fluids Remains in normal sinus rhythm this morning After heart cath will resume Eliquis 5 mg p.o. twice daily Start amiodarone 400mg p.o. BID NSTEMI EKG negative for STEMI Initial troponin 0.04 trending up to one 4.03 in the setting of chest pain and new onset A-fib Will proceed with left heart catheterization to evaluate for coronary artery disease. Discussed risk versus benefits with patient she is agreeable to proceed. History of HFpEF Echo February 2024 shows a normal ejection fraction, Confirmed with a cardiac MRI February 2024 Repeat echo shows normal LV systolic function with mild RV dilation and mild reduction in RV function. Biatrial dilation, mild MR CV summary 07/10/2004: Left heart catheterization pending.
--- NOTE | 2024-07-10 10:29 | SW/DCPLANNER ---
I spoke w/ patient regarding plans once medically stable for discharge. PT evaluated patient and recommended home health services. Patient is currently established w/ [facility] and agreeable to continue services. Updated patient information/order will be faxed to Andreas w/ [facility]. Discharge date is unknown at this time.
[2024-07-10 10:59] LABS: Basophils # 0.1 K/mm3 (0-0.2); Eosinophils # 0.1 Kmm3 (0.0-0.4); Eosinophils % 1.3 % (0.1-12.0); Hematocrit 34.6 % (37.0-47.0); Immature Granulocytes # 0.02 10^3uL; Immature Granulocytes % 0.3 %; Lymphocytes # 1.9 K/mm3 (0.7-4.5); Lymphocytes % 24.2 % (10-50); Mean Corpuscular HGB Conc 29.2 g/dL (31.8-35.4); Mean Corpuscular Hemoglobin 27.1 pg (27.0-31.2); Mean Corpuscular Volume 92.8 fl (81-99); Mean Platelet Volume 10.6 fl (7.4-10.4); Monocytes # 0.7 K/mm3 (0.1-1.0); Monocytes % 9.2 % (1.7-9.3); Neutrophils # 4.9 K/mm3 (1.8-7.8); Nucleated Red Blood Cells # 0 10^3/uL; Nucleated Red Blood Cells % 0 %; Platelet Count 157 K/mm3 (142-424); Red Blood Count 3.73 M/mm3 (4.20-5.40); Red Cell Distribution Width 17.2 % (11.5-17.5); Red Cell Distribution Width-SD 58.5 fL; White Blood Count 7.7 K/mm3 (4.8-10.8)
--- NOTE | 2024-07-10 11:12 | HMH.OTEV ---
OT Inpatient Evaluation Rehab OT IP Evaluation Start: 07/10/24 05:36 Freq: ONCE Status: Active Protocol: Document 07/10/24 10:58 CIATLIN (Rec: 07/10/24 11:12 CAITLIN [id number]) Rehab OT IP Assessment Subjective History HPI narrative: 79-year-old female presents to the ER via EMS. EMS reports family called stating the patient was satting in the 70s on her baseline oxygen and is very short of breath. Patient's only complaint on arrival was mild back pain. Patient is an extremely poor historian and difficult to obtain history from. When questioned further she stated she has been feeling short of breath for the last day or so and reports maybe having a little chest pain or earlier in the afternoon. She also states she thought her legs were maybe a bit more swollen than normal. She reports being compliant with her medications. EMS reports patient was found in atrial fibrillation with RVR, heart rate in the 120s to 140s, she was also borderline hypotensive. No medications administered in route. Patient reports not knowing anything about atrial fibrillation and having never heard of it before , however she is already on apixaban and review of records from most recent admission demonstrates she had atrial fibrillation at that time. Patient denies recent illness. No other complaints or concerns. Subjective I want to go home. Pt was supine in bed when therapy arrived. pt orient x3 . pt reported they live in single story home with no steps. pt reported they use a walker for functional mobility. pt reported they live with granddaughter. pt reported they need some assistance with bathing and ind in dressing. pt reported granddaughter assists with IADLs. Pt agreed to sit on EOB. Pt went from supine to EOB with CGA. Pt then went from EOB to standing with walker with Min A. pt then able to complete functional mobility task of 8 feet with walker with CGA. pt then able to sit back on EOB. pt then went from EOB to supine with CGA. pt left supine in bed with call light and all other needs within reach. pt also left with family in room. Objective Patient Orientation Person,Place,Birthday Right Upper WFL Extremity Gross ROM Left Upper Extremity WFL Gross ROM Bed Mobility bed mobility-scooting,bed mobility - supine/sit Assist Level Contact Guard/Hand Hold Transfer Training Sit/Stand Transfer Assist Level Minimal x 1 (25% assist) Chair Transfer Minimal x 1 (25% assist) Ability Chair Transfer Sit to/from Ambulatory Technique Chair Transfer Standard Walker Assistive Devices Decrease in Yes Endurance Rehab OT IP prob,goals,plan Problems Date of Evaluation: 07/10/24 OT IP Problems Bed Mobility,Transfers,Balance,Self care,Safety Rehab Potential Rehab Potential Good Equipment Needs Assistive Devices Standard Walker Plan OT intervention Plan Bed Mobility,Transfers,Balance,Self care,Safety, Therapeutic Exercise OT Plan Frequency Daily Duration LOS Discharge Goals Bed Mobility Ability Standby Assistance Sit to Stand Chair Contact Guard/Hand Hold Transfer Ability Chair Transfer Contact Guard/Hand Hold Ability Chair Transfer Sit to/from Ambulatory Technique Chair Transfer Standard Walker Assistive Devices Feeding Ability Assist with Tray Set Up Commode/Toilet Raised Toilet Seat,Grab Bars Transfer Assistive Devices Decrease in No Endurance Discharge Plan OT Discharge Plan At this time, pt is at baseline and would not benefit from skilled OT services and interventions while being seen at [facility]. Once DC from [facility], pt could benefit from skilled OT services and interventions with Home Health to improve occupational performance, endurance, safety, and QOL. Eval Complexity Eval Charge Codes 80657 - Moderate Complexity PHYSICIAN CERTIFICATION: I certify the specified therapy services for Patito Garcia are required, authorized, and reviewed every 30 days.
[2024-07-10 11:38] LABS: Troponin I 6.92 ng/ml (0.00-0.034)
[2024-07-10 11:44] LABS: Blood Urea Nitrogen 14 mg/dl (7-17); Calcium 8.2 mg/dl (8.4-10.2); Chloride 95 mmol/L (98-107); Creatinine Clearance Estimated 37 mL/min (50-200); Estimated Glomerular Filt Rate 60 ml/min (>60); GFR (African American) 73 ML/MIN (>60); Glucose 103 mg/dl (74-100); Potassium 3.8 mmoL/L (3.5-5.1); Sodium 137 mmol/L (136-145)
[2024-07-10 11:52] LABS: Anion Gap 3.8 mEq/L (5-15); Carbon Dioxide 42 mmol/L (22.0-30.0)
[2024-07-10 12:12] LABS: Hemoglobin 10.1 g/dL (12.2-16.2)
[2024-07-10] MEDS: HEPARIN 1,000 UNITS/500ML NS (CATH LAB) 3000 UNIT IV (12:18)
[2024-07-10] MEDS: VERAPAMIL 2.5MG/ML 2ML VIAL 2.5 MG IV (12:19)
[2024-07-10] MEDS: NITROGLYCERIN 800MCG/8ML SYR (CATH LAB) 800 MCG IA (12:19)
[2024-07-10] MEDS: LIDOCAINE 1% 10ML MDV 10 ML IJ (12:19)
[2024-07-10] MEDS: 0.9 % SODIUM CHLORIDE 500 ML 25 ML IV (12:19)
[2024-07-10] MEDS: diphenhydrAMINE 50MG/ML VIAL 50 MG IV (12:20)
[2024-07-10] MEDS: FENTANYL 100MCG/2ML VIAL 50 MCG IV (12:22)
[2024-07-10] MEDS: MIDAZOLAM HCL 1MG/ML 5ML VIAL 1 MG IV (12:22)
[2024-07-10] MEDS: HEPARIN 1,000 UNITS/ML 10ML VIAL (CATH LAB) 5000 UNIT IV (12:42)
[2024-07-10] MEDS: CLOPIDOGREL 300MG TABLET 600 MG PO (13:19)
[2024-07-10] MEDS: IOPAMIDOL-370 (76%);100ML BOTTLE 125 ML IV (13:52)
[2024-07-10 14:54] LABS: CATHL Activated Clotting Time 333 SEC (74-125)
--- NOTE | 2024-07-10 16:34 | PC.NURSE ---
AT THIS TIME, ATTEMPTED TO TAKE RADIAL BAND OFF. SITE BEGAN BLEEDING. PRESSURE APPLIED AND RADIAL BAND RE-APPLIED. WILL SLOWLY DECREASE AIR AND REASSESS SITE.
--- NOTE | 2024-07-10 18:50 | PC.NURSE ---
A&OX4 WITH INTERMITTENT CONFUSION. PATIENT HAD A HEART CATH WITH THREE STENTS TODAY. TOLERATED WELL. RADIAL BAND STILL IN PLACE, HAD TO REAPPLY AIR DUE TO BLEEDING AT SITE. SLOWLY TAKING AIR OUT AND REASSESSING SITE AT THIS TIME. PATIENT HAS BEEN RESTING SINCE ARRIVAL TO FLOOR AFTER CATH. FAMILY REMAINS AT BEDSIDE. PURE WICK IN PLACE. PATIENT HAS HAD NO NEEDS OR C/O THUS FAR THIS SHIFT, VSS.
[2024-07-10] MEDS: FLUTICASONE/SALMETEROL 250/50MCG DISKUS 1 PUFF IH (18:54)
[2024-07-10] MEDS: AMIODARONE 200MG TABLET 400 MG PO (20:48)
[2024-07-10] MEDS: ATORVASTATIN 40MG TABLET 40 MG PO (20:49)
[2024-07-10] MEDS: PATIENT'S OWN HOME MEDICATION (Memantine 5 mg tablet) 5 EACH PO (20:49)
[2024-07-10] MEDS: PANTOPRAZOLE 40MG TABLET 40 MG PO (20:49)
[2024-07-10] MEDS: BUSPIRONE 30 MG 30 EACH PO (20:50)
[2024-07-10] MEDS: DONEPEZIL 10MG TAB 10 MG PO (20:50)
[2024-07-11] VITALS (8 sets, daily range): BP systolic 109–136; BP diastolic 38–45; PULSE 11–114; RESP 16–29; TEMP 36.4–37.1; O2SAT 96–99; BMI 43.6
--- NOTE | 2024-07-11 00:09 | PC.NURSE ---
Addendum entered by Meagan Benjamin RN 07/11/24 00:20: MD in room with pt at this time. Original Note: LICENSED MORTGAGE LOAN OFFICER called this RN into room. States pt was feeling different. When entering room, pt appears panicked. Aide obtained VS, stable. SBP up to 109. HR in 80-90s. NSR on rolling monitor in room. Pt states she had 2 episodes that lasted 1-2 mins each where she felt like her vision darkened and she was unable to speak when she tried. Pt states it was like I was in a fog. Pt also states she felt like her heart was beating very fast during episode. Pt pupils checks - PERRLA. FSBS checked -136. Checked telemetry for any signs of pt converting into AFIB and pt has remained in NSR for past several minutes. Pt states she feels back to normal at this time. Pt encouraged to notify RN if she experiences anything like this again. Attempted to notify MD. No answer at this time.
[2024-07-11 00:10] LABS: POC Glucose,Bedside 136 (70-110)
[2024-07-11] MEDS: FLUTICASONE/SALMETEROL 250/50MCG DISKUS 1 PUFF IH ×2 (06:14→18:08)
[2024-07-11 06:35] LABS: Basophils # 0.1 K/mm3 (0-0.2); Basophils % 0.8 % (0.1-2.0); Eosinophils # 0.2 Kmm3 (0.0-0.4); Eosinophils % 3.2 % (0.1-12.0); Hematocrit 33.8 % (37.0-47.0); Hemoglobin 9.3 g/dL (12.2-16.2); Immature Granulocytes # 0.03 10^3uL; Immature Granulocytes % 0.4 %; Lymphocytes # 1.5 K/mm3 (0.7-4.5); Lymphocytes % 20.4 % (10-50); Mean Corpuscular HGB Conc 27.5 g/dL (31.8-35.4); Mean Corpuscular Hemoglobin 25.9 pg (27.0-31.2); Mean Corpuscular Volume 94.2 fl (81-99); Mean Platelet Volume 10.6 fl (7.4-10.4); Monocytes # 0.8 K/mm3 (0.1-1.0); Monocytes % 11.2 % (1.7-9.3); Neutrophils # 4.7 K/mm3 (1.8-7.8); Nucleated Red Blood Cells # 0 10^3/uL; Nucleated Red Blood Cells % 0 %; Platelet Count 164 K/mm3 (142-424); Red Blood Count 3.59 M/mm3 (4.20-5.40); Red Cell Distribution Width 17.6 % (11.5-17.5); Red Cell Distribution Width-SD 61.4 fL; White Blood Count 7.3 K/mm3 (4.8-10.8)
[2024-07-11 07:06] LABS: Albumin Level 2.9 g/dl (3.5-5.0); Chloride 98 mmol/L (98-107); Sodium 138 mmol/L (136-145)
[2024-07-11 07:07] LABS: Potassium 3.7 mmoL/L (3.5-5.1)
[2024-07-11 07:09] LABS: Alanine Aminotransferase 15 U/L (12-78); Albumin/Globulin Ratio 1.1 (1.1-1.8); Alkaline Phosphatase 78 U/L (38-126); Aspartate Amino Transferase 77 U/L (14-36); Bilirubin,Total 0.2 mg/dl (0.2-1.3); Blood Urea Nitrogen 15 mg/dl (7-17); Creatinine Clearance Estimated 35 mL/min (50-200); Estimated Glomerular Filt Rate 60 ml/min (>60); GFR (African American) 73 ML/MIN (>60); Globulin 2.6 g/dL (1.3-3.2); Total Protein,Serum 5.5 g/dl (6.3-8.2)
[2024-07-11 07:10] LABS: Calcium 8.1 mg/dl (8.4-10.2); Glucose 102 mg/dl (74-100); Magnesium 1.9 mg/dl (1.6-2.3)
[2024-07-11 07:16] LABS: Lactic Acid 0.9 mmol/L (0.7-2.1)
[2024-07-11 07:46] LABS: Anion Gap 5.7 mEq/L (5-15); Carbon Dioxide 38 mmol/L (22.0-30.0)
[2024-07-11] MEDS: AMIODARONE 200MG TABLET 400 MG PO ×2 (08:38→20:11)
[2024-07-11] MEDS: ASPIRIN EC 81MG TABLET 81 MG PO (08:38)
[2024-07-11] MEDS: LEVOTHYROXINE 125MCG (0.125MG) TAB 125 MCG PO (08:38)
[2024-07-11] MEDS: BUSPIRONE HCL 10 MG TABLET 30 MG PO ×2 (08:39→20:11)
[2024-07-11] MEDS: BUMETANIDE 1 MG TABLET 2 MG PO ×2 (08:39→17:13)
[2024-07-11] MEDS: DOCUSATE SODIUM 100 MG CAPSULE PO ×2 (08:39→20:12)
[2024-07-11] MEDS: CLOPIDOGREL 75MG TAB 75 MG PO (08:39)
[2024-07-11] MEDS: DULOXETINE 30MG CAPSULE.DR 60 MG PO (08:40)
[2024-07-11] MEDS: NYSTATIN TOPICAL POWDER 30GM TP ×4 (08:40→20:12)
[2024-07-11] MEDS: MEMANTINE 10MG TABLET 5 MG PO ×2 (08:40→20:12)
--- NOTE | 2024-07-11 13:05 | EXP.CARD.PN ---
Subjective Subjective Date: 07/11/24 Time: 08:00 Principal diagnosis: afib rvr, chest pain and soa. Interval history: Patient remains in normal sinus rhythm this morning. She is status post left heart catheterization yesterday-she received 1 DOE to circumflex, 2 to RCA. Ejection fraction is normal. Morning labs reviewed and stable Exam Data for Last 24 hours Vital signs and Labs for Last 24 Hours: Temp Pulse Resp BP Pulse Ox O2 Del Method O2 Flow Rate 98.7 F 82 29 H 113/41 L 99 Nasal Cannula 3 07/11/24 12:00 07/11/24 12:00 07/11/24 12:00 07/11/24 12:00 07/11/24 12:00 07/11/24 12:00 07/11/24 12:00 Laboratory Results - last 24 hr 07/10/24 12:43: Activated Clotting Time 333 H* 07/11/24 00:01: POC Glucose 136 H 07/11/24 06:05: WBC 7.3, RBC 3.59 L, Hgb 9.3 L, Hct 33.8 L, MCV 94.2, MCH 25.9 L, MCHC 27.5 L, RDW 17.6 H, Plt Count 164, MPV 10.6 H, Neut % (Auto) 64.0, Lymph % (Auto) 20.4, [place] % (Auto) 11.2 H, Eos % (Auto) 3.2, Baso % (Auto) 0.8, Neut # (Auto) 4.7, Lymph # (Auto) 1.5, [place] # (Auto) 0.8, Eos # (Auto) 0.2, Baso # (Auto) 0.1, Sodium 138, Potassium 3.7, Chloride 98, Carbon Dioxide 38 H, Anion Gap 5.7, BUN 15, Creatinine 0.90, Estimated Creat Clear 35, Estimated GFR 60, Est GFR ( Amer) 73, Glucose 102 H, Lactate 0.9, Calcium 8.1 L, Magnesium 1.9, Total Bilirubin 0.2, AST 77 H D, ALT 15, Alkaline Phosphatase 78, Total Protein 5.5 L, Albumin 2.9 L D, Globulin 2.6, Albumin/Globulin Ratio 1.1 I & O for Last 24 hours: Intake & Output 07/08/24 07/09/24 07/10/2407/11/25 23:59 23:59 23:59 23:59 Intake Total 240 / 240 125 / 125 Output Total 400 / 400 750 / 750 Balance -160 / -160 -625 / -625 Weight 242 lb 246 lb Constitutional Constitutional: no acute distress *Routine Respiratory Exam Respiratory: Present rhonchi, wheezes and symmetric chest movement *Routine Cardiovascular Exam Cardiovascular: Present RRR, Normal S1 and Normal S2 *Routine Abdominal Exam Abdominal: Present soft and normoactive bowel sounds; Absent tenderness *Routine Extremities Exam Extremities: Present edema, full ROM and normal capillary refill *Routine Skin Exam Skin: Present intact, dry and warm Detailed Neck Exam: Thyroids Thyroid: Absent bruit Progress Note: A&P Assessment and plan (1) Atrial fibrillation with rapid ventricular response: Status: Acute (2) Acute on chronic heart failure with preserved ejection fraction (HFpEF): Status: Acute (3) Acute hypercapnic respiratory failure: Status: Acute (4) CHF exacerbation: Status: Acute (5) COPD exacerbation: Status: Acute (6) Difficulty in walking: Status: Acute Assessment and Plan Assessment and Plan for All Diagnoses:: Acute onset A-fib RVR Chadsvasc score >2 History of bilateral pulmonary emboli D-dimer negative on admission Initial EKG on presentation was A-fib RVR Converted to normal sinus rhythm after Dilt bolus and fluids Remains in normal sinus rhythm Start Eliquis 5mg po BID Continue Amiodarone 400mg p.o. BID CAD NSTEMI Left heart cath yesterday-DOE to circumflex, 2 DOE RCA. Recommend continue monitoring the mid LAD stenosis and consider outpatient stress testing in 4 to 6 weeks to determine if the anterior wall has ischemia. If so we will bring back to the Litigation Coordinator for stenting of the mid LAD. Continue aspirin 81 mg p.o. daily, Plavix 75 mg daily and atorvastatin 40 mg daily History of HFpEF Mild right RV dilation with mild reduction in RV function Echo February 2024 shows a normal ejection fraction, Confirmed with a cardiac MRI February 2024 Repeat echo shows normal LV systolic function with mild RV dilation and mild reduction in RV function. Biatrial dilation, mild MR Continue Bumex 2 mg p.o. twice daily. Add Farxiga 10 mg p.o. daily CV summary 07/10/2004: Continue to diurese patient with Bumex 2 mg p.o. twice daily and add Farxiga 10 mg p.o. daily. Anticipate discharge home tomorrow morning. Cardiac meds: Eliquis 5 mg p.o. twice daily Amiodarone 400 mg p.o. twice daily Aspirin 81 mg p.o. daily Plavix 75 mg p.o. daily Atorvastatin 40 mg p.o. daily Bumex 2 mg p.o. twice daily Farxiga 10 mg p.o. daily
[2024-07-11] MEDS: APIXABAN 5MG TABLET 5 MG PO ×2 (14:08→20:11)
[2024-07-11] MEDS: DAPAGLIFLOZIN PROPANEDIOL 10 MG TABLET PO (14:08)
--- NOTE | 2024-07-11 17:13 | PC.NURSE ---
Patient has done well. noted some wheezing on morning rounds, but has cleared up as day progresses. no signs of hematoma or bleeding at cath site. remains in regular rhythm. family has been at bedside. educated on meds and plan of care. dressing to be removed from cath site. some irritation in folds and at groin site. nystatin is ordered. no complaints of shortness of breath or pain. rings out as needed.
[2024-07-11] MEDS: ATORVASTATIN 40MG TABLET 40 MG PO (20:11)
[2024-07-11] MEDS: DONEPEZIL 10MG TAB 10 MG PO (20:12)
[2024-07-11] MEDS: PANTOPRAZOLE 40MG TABLET 40 MG PO (20:12)
[2024-07-11] MEDS: HYDROCODONE/APAP 5/325 MG TABLET 2 TAB PO (20:13)
--- NOTE | 2024-07-11 21:46 | EXP.PN ---
Subjective *Date: 07/11/24 *Time: 21:46 Exam Data for Last 24 hours Vital signs and Labs for Last 24 Hours: Temp Pulse Resp BP Pulse Ox O2 Del Method O2 Flow Rate 98.8 F 114 H 22 121/45 L 96 Nasal Cannula 3 07/11/24 20:00 07/11/24 20:00 07/11/24 20:00 07/11/24 20:00 07/11/24 20:00 07/11/24 21:00 07/11/24 21:00 Laboratory Results - last 24 hr 07/11/24 00:01: POC Glucose 136 H 07/11/24 06:05: WBC 7.3, RBC 3.59 L, Hgb 9.3 L, Hct 33.8 L, MCV 94.2, MCH 25.9 L, MCHC 27.5 L, RDW 17.6 H, Plt Count 164, MPV 10.6 H, Neut % (Auto) 64.0, Lymph % (Auto) 20.4, [place] % (Auto) 11.2 H, Eos % (Auto) 3.2, Baso % (Auto) 0.8, Neut # (Auto) 4.7, Lymph # (Auto) 1.5, [place] # (Auto) 0.8, Eos # (Auto) 0.2, Baso # (Auto) 0.1, Sodium 138, Potassium 3.7, Chloride 98, Carbon Dioxide 38 H, Anion Gap 5.7, BUN 15, Creatinine 0.90, Estimated Creat Clear 35, Estimated GFR 60, Est GFR ( Amer) 73, Glucose 102 H, Lactate 0.9, Calcium 8.1 L, Magnesium 1.9, Total Bilirubin 0.2, AST 77 H D, ALT 15, Alkaline Phosphatase 78, Total Protein 5.5 L, Albumin 2.9 L D, Globulin 2.6, Albumin/Globulin Ratio 1.1 I & O for Last 24 hours: Intake & Output 07/08/24 07/09/24 07/10/24 07/11/24 23:59 23:59 23:59 23:59 Intake Total 240 / 240 1475 / 1475 Output Total 400 / 400 1250 / 1250 Balance -160 / -160 225 / 225 Weight 109.769 kg 111.584 kg Constitutional Constitutional: no acute distress *Routine HEENT Exam Head: Present normocephalic Eye: Present EOMI and PERRL ENT: Present mucous membranes moist *Routine Neck Exam Neck: Present supple; Absent lymphadenopathy *Routine Respiratory Exam Respiratory: Present CTA bilaterally *Routine Cardiovascular Exam Cardiovascular: Present RRR *Routine Abdominal Exam Abdominal: Present soft and normoactive bowel sounds; Absent tenderness *Routine Extremities Exam Extremities: Absent cyanosis, clubbing or edema *Routine Skin Exam Skin: Present warm; Absent rash *Routine Neurological Exam Neurological: Present alert and oriented X3 Assessment and Plan *Assessment and plan (1) Atrial fibrillation with rapid ventricular response: Status: Acute Category: Medical Code(s): I48.91 - Unspecified atrial fibrillation (2) Acute on chronic heart failure with preserved ejection fraction (HFpEF): Status: Acute Category: Medical Code(s): I50.33 - Acute on chronic diastolic (congestive) heart failure (3) Acute hypercapnic respiratory failure: Status: Acute Category: Medical Code(s): J96.02 - Acute respiratory failure with hypercapnia (4) CHF exacerbation: Status: Acute Qualifiers: Heart failure type: systolic Qualified Code(s): I50.23 - Acute on chronic systolic (congestive) heart failure Category: Medical Code(s): I50.9 - Heart failure, unspecified (5) COPD exacerbation: Status: Acute Category: Medical Code(s): J44.1 - Chronic obstructive pulmonary disease with (acute) exacerbation (6) Difficulty in walking: Status: Acute Category: Medical Code(s): R26.2 - Difficulty in walking, not elsewhere classified Plan Patito Garcia is an 79-year-old female with a medical history significant for COPD on home O2, hypertension, pulmonary embolism, hypertension, dementia, anxiety/depression, hypothyroidism who presents with shortness of breath, fatigue and tachycardia. Case discussed with ER physician, concern for A-fib with RVR. #Afib with RVR #NSTEMI #HFpEF - In A-fib RVR on arrival. Started on amiodarone. Converted upon arrival to the floor to sinus rhythm. - Initial troponin elevated from 0.04-4.0. ? Cardiology consulted, s/p [facility] with DOE x 3 in LCx, LAD. Patient tolerated procedure well. There is a persistent mid LAD lesion, cardiology plans to follow-up in 4 to 6 weeks with stress test to evaluate for ischemia. ? ECHO shows normal LV systolic function. - Continue Bumex 2 mg p.o. twice daily, Lipitor 40 mg nightly. Cardiology started Jardiance 10 mg today. Will continue diuresis overnight and anticipate discharge tomorrow patient continues to be stable. ? Continue Eliquis 5 mg twice daily. #Chronic hypoxic, hypercapnic respiratory failure #COPD ? Supplemental oxygen as needed, currently on baseline of 2 to 3 L. Goal sats greater 90%. -DuoNebs every 6 hours as needed. -Continue home Trelegy - White count normal at 9.7. Hemoglobin 12. #Falls at home #Physical deconditioning - PT/OT consulted, appreciate recommendations in the morning. Previously recommended SNF placement at last admission. #Chronic pulmonary embolism: Hold home Eliquis pending heart cath, consider resuming tomorrow. #Hypertension: Holding blood pressure medication at this time, will evaluate home regimen and consider resuming in the morning. Patient normotensive at 128/48 #Dementia: resumed home donepezil and memantine #Anxiety/depression: Resumed home buspirone, duloxetine. #Hypothyroidism: Resumed home levothyroxine 125 mcg. TSH 0.16 two months ago. Obesity complicates all aspects of her care. Concern for obesity hypoventilation component to her respiratory failure. Full code Heparinized in [employer], Eliquis twice daily
[2024-07-12] VITALS (10 sets, daily range): BP systolic 91–125; BP diastolic 32–69; PULSE 80–122; RESP 17–30; TEMP 36.4–37.2; O2SAT 93–100; BMI 44.4
--- NOTE | 2024-07-12 03:34 | PC.NURSE ---
Pt has remained A&OX4. She has tolerated 3L nasal cannula. She has remained NSR on tele. VSS. She did complain of back pain once and was medicated per MAR. Purewick has remained in place. Family at bedside. No complaints at this time, call light within reach.
[2024-07-12] MEDS: FLUTICASONE/SALMETEROL 250/50MCG DISKUS 1 PUFF IH ×2 (06:12→18:10)
[2024-07-12] MEDS: LEVOTHYROXINE 125MCG (0.125MG) TAB 125 MCG PO (06:16)
--- NOTE | 2024-07-12 08:15 | PC.NURSE ---
nurse made aware of b/p of 115/32
[2024-07-12 09:14] LABS: Albumin Level 2.9 g/dl (3.5-5.0); Chloride 93 mmol/L (98-107); Potassium 3.8 mmoL/L (3.5-5.1); Sodium 137 mmol/L (136-145)
[2024-07-12 09:16] LABS: Blood Urea Nitrogen 11 mg/dl (7-17); Creatinine Clearance Estimated 35 mL/min (50-200); Estimated Glomerular Filt Rate 60 ml/min (>60); GFR (African American) 73 ML/MIN (>60)
[2024-07-12 09:17] LABS: Alanine Aminotransferase 18 U/L (12-78); Albumin/Globulin Ratio 1.1 (1.1-1.8); Alkaline Phosphatase 71 U/L (38-126); Aspartate Amino Transferase 44 U/L (14-36); Basophils # 0.1 K/mm3 (0-0.2); Basophils % 0.8 % (0.1-2.0); Calcium 7.9 mg/dl (8.4-10.2); Eosinophils # 0.3 Kmm3 (0.0-0.4); Eosinophils % 3.5 % (0.1-12.0); Globulin 2.6 g/dL (1.3-3.2); Glucose 126 mg/dl (74-100); Hematocrit 32.6 % (37.0-47.0); Hemoglobin 9.4 g/dL (12.2-16.2); Immature Granulocytes # 0.02 10^3uL; Immature Granulocytes % 0.3 %; Lymphocytes # 1.5 K/mm3 (0.7-4.5); Lymphocytes % 19.8 % (10-50); Mean Corpuscular HGB Conc 28.8 g/dL (31.8-35.4); Mean Corpuscular Hemoglobin 27.1 pg (27.0-31.2); Mean Corpuscular Volume 93.9 fl (81-99); Mean Platelet Volume 10.5 fl (7.4-10.4); Monocytes # 0.9 K/mm3 (0.1-1.0); Monocytes % 11.5 % (1.7-9.3); Neutrophils # 4.9 K/mm3 (1.8-7.8); Neutrophils % 64.1 % (37.0-80.0); Nucleated Red Blood Cells # 0 10^3/uL; Nucleated Red Blood Cells % 0 %; Platelet Count 190 K/mm3 (142-424); Red Blood Count 3.47 M/mm3 (4.20-5.40); Red Cell Distribution Width 17.6 % (11.5-17.5); Red Cell Distribution Width-SD 61.1 fL; Total Protein,Serum 5.5 g/dl (6.3-8.2); White Blood Count 7.7 K/mm3 (4.8-10.8)
[2024-07-12 09:19] LABS: Bilirubin,Total 0.1 mg/dl (0.2-1.3)
[2024-07-12] MEDS: BUSPIRONE HCL 10 MG TABLET 30 MG PO ×2 (09:21→20:03)
[2024-07-12] MEDS: DAPAGLIFLOZIN PROPANEDIOL 10 MG TABLET PO (09:21)
[2024-07-12] MEDS: CLOPIDOGREL 75MG TAB 75 MG PO (09:22)
[2024-07-12] MEDS: ASPIRIN EC 81MG TABLET 81 MG PO (09:22)
[2024-07-12] MEDS: DULOXETINE 30MG CAPSULE.DR 60 MG PO (09:22)
[2024-07-12] MEDS: APIXABAN 5MG TABLET 5 MG PO ×2 (09:22→20:02)
[2024-07-12] MEDS: DOCUSATE SODIUM 100 MG CAPSULE PO ×2 (09:22→20:02)
[2024-07-12] MEDS: NYSTATIN TOPICAL POWDER 30GM TP ×3 (09:23→20:07)
[2024-07-12] MEDS: MEMANTINE 10MG TABLET 5 MG PO ×2 (09:23→20:07)
[2024-07-12] MEDS: BUMETANIDE 1 MG TABLET 2 MG PO (09:24)
[2024-07-12] MEDS: AMIODARONE 200MG TABLET 400 MG PO ×2 (09:25→20:03)
[2024-07-12 09:27] LABS: Anion Gap 4.8 mEq/L (5-15); Carbon Dioxide 43 mmol/L (22.0-30.0)
--- NOTE | 2024-07-12 09:51 | XR_ITS ---
FINAL REPORT CLINICAL HISTORY: SOB - RESIPATORY DISTRESS COMPARISON: 07/10/2024 FINDINGS: A portable view of the chest was obtained. The heart is stable in size. There has been interval worsening of left basilar opacity favored to represent pneumonia. Underlying hiatal hernia is not excluded. There is likely a small left pleural effusion. There is no pneumothorax. IMPRESSION: Worsening left basilar opacity favored to represent pneumonia, underlying hiatal hernia not excluded. Likely small left pleural effusion. Reviewed, Interpreted and Dictated by Daphney Clayton MD Transcribed by Omayra Pabon Authenticated and [facility]
[2024-07-12 10:28] LABS: ABG Base Excess 19.2 mmol/L (-2.4-2.3); ABG HCO3 43.1 mmhg (22.0-26.0); ABG Oxygen Saturation 100 % (90-100); ABG PH 7.46 mmol/L (7.35-7.45); ABG PO2 224.3 mmhg (80-100)
[2024-07-12 10:29] LABS: Oxygen 100 %; Source NRM
[2024-07-12 10:30] LABS: ABG PCO2 62.5 mmhg (35.0-45.0)
[2024-07-12] MEDS: IPRATROPIUM/ALBUTEROL 3 ML NEB IH ×2 (10:30→13:44)
[2024-07-12] MEDS: BUDESONIDE 0.5MG/2ML NEB 0.5 MG IH ×2 (10:31→18:10)
[2024-07-12] MEDS: METHYLPREDNISOLONE SOD SUCC 125MG VIAL 125 MG IV (10:31)
[2024-07-12] MEDS: LEVOFLOXACIN/D5W 750 MG/150 ML 750 MG/150 ML PIGGYBACK 100 MG IV (10:43)
[2024-07-12] MEDS: ACETAMINOPHEN 325MG TAB 650 MG PO ×2 (11:42→20:14)
[2024-07-12] MEDS: 0.9 % SODIUM CHLORIDE 500 ML 999 ML IV (12:28)
--- NOTE | 2024-07-12 12:29 | PC.NURSE ---
nurse is aware of low b/p
--- NOTE | 2024-07-12 12:35 | EXP.PULM.CON ---
History of Present Illness History of present illness: Ms. Garcia is a 79-year-old female COPD, chronic hypoxic hypercarbic respiratory failure on 2 to 3 L nasal Román supplementation at baseline, triple inhaler therapy presented to the ER with A-fib RVR, status post left heart cath DOE to circumflex to the RCA, cardiology following, found to be having worsening respiratory distress today and pulmonary was called for further evaluation and management. [facility] Disclaimer: The information contained in this section may have been updated after the patient was seen, as this information can be updated by other users. Medical History Acute on chronic respiratory failure with hypoxemia Acute on chronic heart failure with preserved ejection fraction (HFpEF) Depression Anxiety Pulmonary embolism Osteoarthritis Skin cancer SOB (shortness of breath) on exertion Abnormal echocardiogram Hyperlipidemia (HFpEF) heart failure with preserved ejection fraction CAD (coronary artery disease) HTN (hypertension) Heart failure Elevated troponin Chronic respiratory failure with hypoxia History of COPD Second hand smoke exposure Surgical History History of left knee replacement Family History Other No significant family history Social History (Updated 07/10/24 @ 05:36 by Natalie Lebron RN) Smoking Status: Never smoker alcohol intake: never current occupational status: retired Travel in the last 8 weeks?: None Have you lived/traveled outside [place] in past 30 days?: No Contact w/someone who lives/traveled outside US past 30 days?: No Exposure to someone with infectious disease in past 14 days?: No Do you have a fever (greater than 100.4 F or 38 C)?: No Have you tested positive for COVID-19?: No Exposed to someone with COVID-19 in past 14 days?: No Do you have a sore throat?: No Do you have a cough?: No Do you have any weakness?: No Are you experiencing any nausea/vomitting?: No Do you have any diarrhea?: No Are you experiencing any unusual bleeding?: No Do you have any muscle aches/pain?: No Do you have any abdominal pain?: No Are you experiencing loss of taste or smell?: No Review of Systems Constitutional Constitutional: Reports fatigue and Reports weakness Eyes Eyes: Denies eye discharge, Denies dry eyes, Denies irritation and Denies itchy eyes ENT Ears, Nose, Mouth, and Throat: Denies epistaxis, Denies facial pain, Denies lip swelling and Denies throat swelling *Cardiovascular Cardiovascular: Reports dyspnea and Reports dyspnea on exertion *Respiratory Respiratory: Denies change in phlegm color, Reports chest congestion, Reports cough, Reports dyspnea, Reports dyspnea on exertion, Denies excessive phlegm production, Denies hemoptysis, Denies pain on inspiration, Denies pain with cough and Reports wheezing *Gastrointestinal Gastrointestinal: Denies abdominal pain, Denies belching and Denies cramping *Musculoskeletal Musculoskeletal: Reports back pain, Reports myalgias and Reports other (No small joint swelling or Pain) *Neurologic Neurologic: Reports as per HPI and Reports weakness Psychiatric Psychiatric: Denies homicidal ideation and Denies suicidal ideation Endocrine Endocrine: Reports fatigue and Denies heat intolerance Hematologic/Lymphatic Hematologic/Lymphatic: Denies easy bleeding and Denies lymphadenopathy Allergic/Immunologic Allergic/Immunologic: Denies itchy eyes, Denies lip swelling, Denies throat swelling and Reports wheezing Pulmonology Exam Inpatient Vital signs and Labs for Last 24 Hours: Temp Pulse Resp BP Pulse Ox O2 Del Method O2 Flow Rate 98.5 F 85 20 91/34 L 100 Nasal Cannula 3 07/12/24 12:00 07/12/24 12:00 07/12/24 12:00 07/12/24 12:00 07/12/24 12:00 07/12/24 12:00 07/12/24 12:00 Laboratory Results - last 24 hr 07/12/24 09:02: WBC 7.7, RBC 3.47 L, Hgb 9.4 L, Hct 32.6 L, MCV 93.9, MCH 27.1, MCHC 28.8 L, RDW 17.6 H, Plt Count 190, MPV 10.5 H, Neut % (Auto) 64.1, Lymph % (Auto) 19.8, [place] % (Auto) 11.5 H, Eos % (Auto) 3.5, Baso % (Auto) 0.8, Neut # (Auto) 4.9, Lymph # (Auto) 1.5, [place] # (Auto) 0.9, Eos # (Auto) 0.3, Baso # (Auto) 0.1, Sodium 137, Potassium 3.8, Chloride 93 L, Carbon Dioxide 43 H*, Anion Gap 4.8 L, BUN 11 D, Creatinine 0.90, Estimated Creat Clear 35, Estimated GFR 60, Est GFR ( Amer) 73, Glucose 126 H, Calcium 7.9 L, Total Bilirubin 0.1 L, AST 44 H D, ALT 18, Alkaline Phosphatase 71, Total Protein 5.5 L, Albumin 2.9 L, Globulin 2.6, Albumin/Globulin Ratio 1.1 07/12/24 10:27: Specimen Source Nrm, O2 % 100, ABG pH 7.46 H, ABG pCO2 62.5 H, ABG pO2 224.3 H, ABG HCO3 43.1 H, ABG Total CO2 45.0 H, ABG O2 Saturation 100, ABG Base Excess 19.2 H, ABG Lactate 1.0 I & O for Labs for Last 24 Hours: Intake & Output 07/09/24 07/10/24 07/11/24 07/12/24 23:59 23:59 23:59 23:59 Intake Total 240 / 240 1475 / 1625 390 / 390 Output Total 400 / 400 1250 / 1250 2450 / 2450 Balance -160 / -160 225 / 375 -2060 / -2060 Weight 242 lb 246 lb 250 lb 8 oz Constitutional: Present moderate distress Head: Present normocephalic and atraumatic ENT: Present normal exam, normal oropharynx and mucous membranes moist Neck: Present normal inspection and full ROM Respiratory: Present respiratory distress, crackles and able to speak in complete sentences; Absent prolonged expiratory phase or wheezes Cardiac: Present S1/S2, Tachycardia and radial pulses present GI: Present soft and distention; Absent tenderness or guarding Rectal (female): Present deferred (female): Present deferred Skin: Present intact; Absent cyanosis or jaundice Neuro: Present alert, awake and oriented x 3 Extremities: Present normal inspection; Absent clubbing or cyanosis Psychiatric: Present normal affect and cooperative Meds Home Medications and Allergies Home Medications ?Medication ?Instructions ?Recorded ?Confirmed ?Type donepezil 10 mg tablet 10 mg PO HS 03/12/23 07/10/24 History duloxetine 60 mg capsule,delayed 60 mg PO DAILY 03/12/23 07/10/24 History release levothyroxine 125 mcg tablet 125 mcg PO DAILYDM 03/12/23 07/10/24 History memantine 5 mg tablet 5 mg PO BID 10/14/23 07/10/24 History apixaban 5 mg tablet (Eliquis) 5 mg PO BID #180 tabs 11/08/23 07/10/24 Rx alendronate 70 mg tablet 70 mg PO WEEKLY 02/12/24 07/10/24 History buspirone 30 mg tablet 30 mg PO BID 02/12/24 07/10/24 History albuterol sulfate 90 mcg/actuation 2 puff inhalation Q4HP PRN 02/13/24 07/10/24 History aerosol inhaler (Ventolin HFA) shortness of breath or wheezing atorvastatin 40 mg tablet 40 mg PO HS 30 days #30 tabs 02/15/24 07/10/24 Rx amlodipine 5 mg tablet 5 mg PO DAILY 07/10/24 07/10/24 History atenolol 25 mg tablet 25 mg PO DAILY 07/10/24 07/10/24 History docusate sodium 100 mg capsule 100 mg PO BID 07/10/24 07/10/24 History (Stool Softener) fluticasone 250 mcg-salmeterol 50 1 ea inhalation BID 07/10/24 07/10/24 History mcg/dose blistr powdr for inhalation furosemide 40 mg tablet 40 mg PO DAILY 07/10/24 07/10/24 History sacubitril 49 mg-valsartan 51 mg 1 tab PO BID 07/10/24 07/10/24 History tablet (Entresto) trazodone 150 mg tablet 150 mg PO HS 07/10/24 07/10/24 History New Prescriptions to Start Prescriptions: Allergies Allergy/AdvReac Type Severity Reaction Status Date / Time sulfamethoxazole (From AdvReac Mild Nausea Verified 06/19/24 13:01 Bactrim) trimethoprim (From Bactrim) AdvReac Mild Nausea Verified 06/19/24 13:01 Results Laboratory Findings 07/12/24 09:02 07/12/24 09:02 ABG ABG pH 7.46 mmol/L (7.35-7.45) H 07/12/24 10:27 ABG pCO2 62.5 mmhg (35.0-45.0) H 07/12/24 10:27 ABG pO2 224.3 mmhg (80-100) H 07/12/24 10:27 ABG O2 Saturation 100 % (90-100) 07/12/24 10:27 PT/INR, D-dimer PT 11.9 seconds (10.1-12.5) 07/10/24 03:45 INR 1.08 (0.9-1.1) 07/10/24 03:45 D-Dimer 0.47 ug/mL (0.0-0.5) 07/10/24 03:45 Abnormal lab findings: Abnormal Labs 07/10/24 07/10/24 07/10/24 03:05 03:40 08:20 RBC Hgb 12.0 L Hct MCH MCHC 29.6 L RDW MPV 12.7 H [place] % (Auto) 9.5 H Activated Clotting Time ABG pH ABG pCO2 ABG pO2 ABG HCO3 ABG Total CO2 ABG Base Excess VBG pH 7.52 H 7.53 H VBG pCO2 24.4 L VBG pO2 163.2 H 69.7 H VBG HCO3 19.5 L 37.8 H VBG Total CO2 20.3 L 39.2 H VBG O2 Saturation 99.3 H 95.8 H VBG Base Excess -3.3 L 15.1 H Chloride 92 L Carbon Dioxide 42 H* Anion Gap Glucose 103 H POC Glucose Calcium 8.3 L Total Bilirubin AST 37 H Troponin I 0.04 H NT-Pro-B Natriuret Pep 2370 H Total Protein Albumin 3.4 L 07/10/24 07/10/24 07/10/24 10:50 12:43 Unknown RBC 3.73 L Hgb 10.1 L D Hct 34.6 L MCH MCHC 29.2 L RDW MPV 10.6 H [place] % (Auto) Activated Clotting Time 333 H* ABG pH ABG pCO2 ABG pO2 ABG HCO3 ABG Total CO2 ABG Base Excess VBG pH VBG pCO2 VBG pO2 VBG HCO3 VBG Total CO2 VBG O2 Saturation VBG Base Excess Chloride 95 L Carbon Dioxide 42 H* Anion Gap 3.8 L Glucose 103 H POC Glucose Calcium 8.2 L Total Bilirubin AST Troponin I 6.92 H 4.03 H NT-Pro-B Natriuret Pep Total Protein Albumin 07/11/24 07/11/24 07/12/24 00:01 06:05 09:02 RBC 3.59 L 3.47 L Hgb 9.3 L 9.4 L Hct 33.8 L 32.6 L MCH 25.9 L MCHC 27.5 L 28.8 L RDW 17.6 H 17.6 H MPV 10.6 H 10.5 H [place] % (Auto) 11.2 H 11.5 H Activated Clotting Time ABG pH ABG pCO2 ABG pO2 ABG HCO3 ABG Total CO2 ABG Base Excess VBG pH VBG pCO2 VBG pO2 VBG HCO3 VBG Total CO2 VBG O2 Saturation VBG Base Excess Chloride 93 L Carbon Dioxide 38 H 43 H* Anion Gap 4.8 L Glucose 102 H 126 H POC Glucose 136 H Calcium 8.1 L 7.9 L Total Bilirubin 0.1 L AST 77 H D 44 H D Troponin I NT-Pro-B Natriuret Pep Total Protein 5.5 L 5.5 L Albumin 2.9 L D 2.9 L 07/12/24 10:27 RBC Hgb Hct MCH MCHC RDW MPV [place] % (Auto) Activated Clotting Time ABG pH 7.46 H ABG pCO2 62.5 H ABG pO2 224.3 H ABG HCO3 43.1 H ABG Total CO2 45.0 H ABG Base Excess 19.2 H VBG pH VBG pCO2 VBG pO2 VBG HCO3 VBG Total CO2 VBG O2 Saturation VBG Base Excess Chloride Carbon Dioxide Anion Gap Glucose POC Glucose Calcium Total Bilirubin AST Troponin I NT-Pro-B Natriuret Pep Total Protein Albumin Assessment and Plan *Assessment and plan (1) Acute on chronic respiratory failure with hypoxemia: Status: Acute Category: Medical Code(s): J96.21 - Acute and chronic respiratory failure with hypoxia (2) Pneumonia: Status: Acute Qualifiers: Pneumonia type: due to unspecified organism Laterality: right Lung location: unspecified part of lung Qualified Code(s): J18.9 - Pneumonia, unspecified organism Category: Medical Code(s): J18.9 - Pneumonia, unspecified organism Plan Ms. Garcia is a 79-year-old female COPD, chronic hypoxic hypercarbic respiratory failure on 2 to 3 L nasal Román supplementation at baseline, triple inhaler therapy presented to the ER with A-fib RVR, status post left heart cath DOE to circumflex to the RCA, cardiology following, found to be having worsening respiratory distress today and pulmonary was called for further evaluation and management. Afebrile. Hemodynamically stable. No evidence of leukocytosis. Blood gas from admission from today chronic hypercarbic respiratory failure with a pH of 7.46 and a PCO2 62.5. PO2 of 224.3. Chest x-ray from this morning continued to show cardiomegaly, similar to her prior chest x-rays. Cannot completely rule out left lower lobe airspace disease. Initiated on levofloxacin. On examination patient appeared to be in moderate respiratory distress. No significant wheezing noted on auscultation. On 3 L saturating 100%. Wean oxygen as tolerated. Plan: Xopenex and ipratropium every 6 hours along with Pulmicort every 12 scheduled Continue levofloxacin pending sputum culture results. Will hold off on performing CT chest at this point of time. Continue oxygen supplementation to maintain O2 saturation goal of 90% and above. Wean as tolerated.
[2024-07-12 12:57] LABS: Adenovirus,PCR Not Detected (NotDetected); Bordetella Pertussis Not Detected (NotDetected); Chlamydophila Pneumoniae, PCR Not Detected (NotDetected); Coronavirus 19, PCR Not Detected (NotDetected); Coronavirus 229E Not Detected (NotDetected); Coronavirus NL63 Not Detected (NotDetected); Coronavirus OC43 Not Detected (NotDetected); Coronovirus HKU1,PCR Not Detected (NotDetected); Human Metapneumovirus Not Detected (NotDetected); Influenza A, PCR Not Detected (NotDetected); Influenza AH1, 2009 Not Detected (NotDetected); Influenza AH1, PCR Not Detected (NotDetected); Influenza AH3,PCR Not Detected (NotDetected); Influenza B, PCR Not Detected (NotDetected); Mycoplasma Pneumoniae, PCR Not Detected (NotDetected); Parainfluenza 1, PCR Not Detected (NotDetected); Parainfluenza 2, PCR Not Detected (NotDetected); Parainfluenza 3, PCR Not Detected (NotDetected); Parainfluenza 4, PCR Not Detected (NotDetected); Respiratory Syncytial Virus Not Detected (NotDetected); Rhinovirus/Enterovirus Not Detected (NotDetected)
--- NOTE | 2024-07-12 14:24 | P.PN_ITS ---
Subjective Subjective Date: 07/12/24 Time: 08:00 Principal diagnosis: afib rvr, chest pain and soa. Interval history: Patient became hypotensive and hypoxic this morning. Wheezing was noted to bilateral lung bases. Patient was started on a duoneb without improvment in O2 sat. Patient was placed on a nonrebreather. IV solumedrol given. Oxygen saturation improved to 98%. A repeat chest x-ray was obtained which shows worsening left basilar opacity favoring pneumonia with likely small left pleural effusion. Patient was given a 250 normal saline bolus for hypotension with improvement of systolic blood pressure above 100. Patient was eventually weaned from nonrebreather back down to 3 L nasal cannula. Vitals have remained stable throughout the afternoon. Morning labs reviewed. Exam Data for Last 24 hours Vital signs and Labs for Last 24 Hours: Temp Pulse Resp BP Pulse Ox O2 Del Method O2 Flow Rate 98.5 F 88 20 91/34 L 100 Nasal Cannula 3 07/12/24 12:00 07/12/24 13:44 07/12/24 12:00 07/12/24 12:00 07/12/24 12:00 07/12/24 12:57 07/12/24 12:57 Laboratory Results - last 24 hr 07/12/24 09:02: WBC 7.7, RBC 3.47 L, Hgb 9.4 L, Hct 32.6 L, MCV 93.9, MCH 27.1, MCHC 28.8 L, RDW 17.6 H, Plt Count 190, MPV 10.5 H, Neut % (Auto) 64.1, Lymph % (Auto) 19.8, [place] % (Auto) 11.5 H, Eos % (Auto) 3.5, Baso % (Auto) 0.8, Neut # (Auto) 4.9, Lymph # (Auto) 1.5, [place] # (Auto) 0.9, Eos # (Auto) 0.3, Baso # (Auto) 0.1, Sodium 137, Potassium 3.8, Chloride 93 L, Carbon Dioxide 43 H*, Anion Gap 4.8 L, BUN 11 D, Creatinine 0.90, Estimated Creat Clear 35, Estimated GFR 60, Est GFR ( Amer) 73, Glucose 126 H, Calcium 7.9 L, Total Bilirubin 0.1 L, AST 44 H D, ALT 18, Alkaline Phosphatase 71, Total Protein 5.5 L, Albumin 2.9 L, Globulin 2.6, Albumin/Globulin Ratio 1.1 07/12/24 10:27: Specimen Source Nrm, O2 % 100, ABG pH 7.46 H, ABG pCO2 62.5 H, ABG pO2 224.3 H, ABG HCO3 43.1 H, ABG Total CO2 45.0 H, ABG O2 Saturation 100, ABG Base Excess 19.2 H, ABG Lactate 1.0 I & O for Last 24 hours: Intake & Output 07/09/24 07/10/24 07/11/24 07/12/24 23:59 23:59 23:59 23:59 Intake Total 240 / 240 1475 / 1625 590 / 590 Output Total 400 / 400 1250 / 1250 2450 / 2450 Balance -160 / -160 225 / 375 -1860 / -1860 Weight 242 lb 246 lb 250 lb 8 oz Constitutional Constitutional: no acute distress *Routine Respiratory Exam Respiratory: Present wheezes and symmetric chest movement *Routine Cardiovascular Exam Cardiovascular: Present RRR, Normal S1 and Normal S2 *Routine Abdominal Exam Abdominal: Present soft and normoactive bowel sounds; Absent tenderness *Routine Extremities Exam Extremities: Present edema, full ROM and normal capillary refill *Routine Skin Exam Skin: Present intact, dry and warm Detailed Neck Exam: Thyroids Thyroid: Absent bruit Progress Note: A&P Assessment and plan (1) Atrial fibrillation with rapid ventricular response: Status: Acute (2) Acute on chronic heart failure with preserved ejection fraction (HFpEF): Status: Acute (3) Acute hypercapnic respiratory failure: Status: Acute (4) CHF exacerbation: Status: Acute (5) COPD exacerbation: Status: Acute (6) Difficulty in walking: Status: Acute Assessment and Plan Assessment and Plan for All Diagnoses:: Acute onset A-fib RVR Chadsvasc score >2 History of bilateral pulmonary emboli D-dimer negative on admission Initial EKG on presentation was A-fib RVR Converted to normal sinus rhythm after Dilt bolus and fluids Remains in normal sinus rhythm Contineu Eliquis 5mg po BID Continue Amiodarone 400mg p.o. BID CAD NSTEMI Left heart cath yesterday-DOE to circumflex, 2 DOE RCA. Recommend continue monitoring the mid LAD stenosis and consider outpatient stress testing in 4 to 6 weeks to determine if the anterior wall has ischemia. If so we will bring back to the [facility] [employer] [facility] for stenting of the mid LAD. Continue aspirin 81 mg p.o. daily, Plavix 75 mg daily and atorvastatin 40 mg daily History of HFpEF Mild right RV dilation with mild reduction in RV function Echo February 2024 shows a normal ejection fraction, Confirmed with a cardiac MRI February 2024 Repeat echo shows normal LV systolic function with mild RV dilation and mild reduction in RV function. Biatrial dilation, mild MR Holding Bumex due to hypotension. Continue Farxiga 10 mg p.o. daily Pneumonia COPD exacerbation Defer to primary service and pulmonology CV summary 07/12/2004: Will hold diuretics at this time due to hypotension. Patient currently being treated for COPD exacerbation/pneumonia by primary service and pulmonology. Will continue to follow along and restart diuretics when blood pressure will tolerate. Cardiac meds: Eliquis 5 mg p.o. twice daily Amiodarone 400 mg p.o. twice daily Aspirin 81 mg p.o. daily Plavix 75 mg p.o. daily Atorvastatin 40 mg p.o. daily Bumex 2 mg p.o. twice daily-on hold due to hypotension Farxiga 10 mg p.o. daily
[2024-07-12 15:22] LABS: Procalcitonin 0.089 ng/mL (0.0-2.0)
--- NOTE | 2024-07-12 15:53 | PC.NURSE ---
PT ALERT BUT CAN BECOME DISORIENTED AT TIMES. CURRENTLY ON 3LNC FOR O2 SUPPORT. PT DID HAVE EPISODE OF HYPOTENSION EARLIER IN SHIFT IN WHICH HER O2 SATS ALSO DROPPED. AT THAT TIME SHE WAS PLACED ON A VENTI MASK 50% AND 500 ML BOLUS WAS ADMINISTERED. SHE HAS SINCE BEEN WEANED BACK TO HER BASELINE O2 REQUIREMENT. HER MOST RECENT BP WAS 109/56 AT 1600 VS CHECK.
[2024-07-12] MEDS: IPRATROPIUM BROMIDE 0.5 MG/2.5ML SOLUTION IH ×2 (18:10→23:20)
[2024-07-12] MEDS: LEVALBUTEROL 0.63MG/3ML NEB 0.63 MG IH ×2 (18:10→23:20)
[2024-07-12] MEDS: ATORVASTATIN 40MG TABLET 40 MG PO (20:02)
[2024-07-12] MEDS: DONEPEZIL 10MG TAB 10 MG PO (20:02)
[2024-07-12] MEDS: PANTOPRAZOLE 40MG TABLET 40 MG PO (20:02)
--- NOTE | 2024-07-12 20:41 | P.PN_ITS ---
Subjective *Date: 07/12/24 *Time: 20:41 Exam Data for Last 24 hours Vital signs and Labs for Last 24 Hours: Temp Pulse Resp BP Pulse Ox O2 Del Method O2 Flow Rate 98.9 F 120 H 25 H 125/69 93 L Nasal Cannula 3 07/12/24 20:00 07/12/24 20:00 07/12/24 20:00 07/12/24 20:00 07/12/24 20:00 07/12/24 20:00 07/12/24 20:00 Laboratory Results - last 24 hr 07/12/24 09:02: WBC 7.7, RBC 3.47 L, Hgb 9.4 L, Hct 32.6 L, MCV 93.9, MCH 27.1, MCHC 28.8 L, RDW 17.6 H, Plt Count 190, MPV 10.5 H, Neut % (Auto) 64.1, Lymph % (Auto) 19.8, [place] % (Auto) 11.5 H, Eos % (Auto) 3.5, Baso % (Auto) 0.8, Neut # (Auto) 4.9, Lymph # (Auto) 1.5, [place] # (Auto) 0.9, Eos # (Auto) 0.3, Baso # (Auto) 0.1, Sodium 137, Potassium 3.8, Chloride 93 L, Carbon Dioxide 43 H*, Anio n Gap 4.8 L, BUN 11 D, Creatinine 0.90, Estimated Creat Clear 35, Estimated GFR 60, Est GFR ( Amer) 73, Glucose 126 H, Calcium 7.9 L, Total Bilirubin 0.1 L, AST 44 H D, ALT 18, Alkaline Phosphatase 71, Total Protein 5.5 L, Albumin 2.9 L, Globulin 2.6, Albumin/Globulin Ratio 1.1, Procalcitonin 0.089 07/12/24 10:27: Specimen Source Nrm, O2 % 100, ABG pH 7.46 H, ABG pCO2 62.5 H, ABG pO2 224.3 H, ABG HCO3 43.1 H, ABG Total CO2 45.0 H, ABG O2 Saturation 100, ABG Base Excess 19.2 H, ABG Lactate 1.0 07/12/24 12:52: Chlamy pneumoniae PCR Not detected, Adenovirus (PCR) Not detected, B. pertussis DNA (PCR) Not detected, Coronavirus OC43 (PCR) Not detected, Coronavirus HKU1 (PCR) Not detected, Coronavirus 229E (PCR) Not detected, SARS-CoV-2 (PCR) Not detected, Coronavirus NL63 (PCR) Not detected, Human Metapneumovir PCR Not detected, Influenza A (H1) PCR Not detected, Influ A (H1N1/09) PCR Not detected, Influenza A (H3) PCR Not detected, Influenza Type A (PCR) Not detected, Influenza Type B (PCR) Not detected, M. pneumoniae (PCR) Not detected, Parainfluenza 1 (PCR) Not detected, Parainfluenza 2 (PCR) Not detected, Parainfluenza 3 (PCR) Not detected, Parainfluenza 4 (PCR) Not detected, RSV (PCR) Not detected, Entero/Rhino (PCR) Not detected I & O for Last 24 hours: Intake & Output 07/09/24 07/10/24 07/11/24 07/12/24 23:59 23:59 23:59 23:59 Intake Total 240 / 240 1475 / 1625 1350 / 1350 Output Total 400 / 400 1250 / 1250 4650 / 4650 Balance -160 / -160 225 / 375 -3300 / -3300 Weight 109.769 kg 111.584 kg 113.625 kg Constitutional Constitutional: no acute distress *Routine HEENT Exam Head: Present normocephalic Eye: Present EOMI and PERRL ENT: Present mucous membranes moist *Routine Neck Exam Neck: Present supple; Absent lymphadenopathy *Routine Respiratory Exam Respiratory: Present wheezes; Absent CTA bilaterally *Routine Cardiovascular Exam Cardiovascular: Present RRR *Routine Abdominal Exam Abdominal: Present soft and normoactive bowel sounds; Absent tenderness *Routine Extremities Exam Extremities: Absent cyanosis, clubbing or edema *Routine Skin Exam Skin: Present warm; Absent rash *Routine Neurological Exam Neurological: Present alert and oriented X3 Assessment and Plan *Assessment and plan (1) Atrial fibrillation with rapid ventricular response: Status: Acute Category: Medical Code(s): I48.91 - Unspecified atrial fibrillation (2) Acute on chronic heart failure with preserved ejection fraction (HFpEF): Status: Acute Category: Medical Code(s): I50.33 - Acute on chronic diastolic (congestive) heart failure (3) Acute hypercapnic respiratory failure: Status: Acute Category: Medical Code(s): J96.02 - Acute respiratory failure with hypercapnia (4) CHF exacerbation: Status: Acute Qualifiers: Heart failure type: systolic Qualified Code(s): I50.23 - Acute on chronic systolic (congestive) heart failure Category: Medical Code(s): I50.9 - Heart failure, unspecified (5) COPD exacerbation: Status: Acute Category: Medical Code(s): J44.1 - Chronic obstructive pulmonary disease with (acute) exacerbation (6) Difficulty in walking: Status: Acute Category: Medical Code(s): R26.2 - Difficulty in walking, not elsewhere classified Plan Patito Garcia is an 79-year-old female with a medical history significant for COPD on home O2, hypertension, pulmonary embolism, hypertension, dementia, anxiety/depression, hypothyroidism who presents with shortness of breath, fatigue and tachycardia. Case discussed with ER physician, concern for A-fib with RVR. #Afib with RVR #NSTEMI #HFpEF - In A-fib RVR on arrival. Started on amiodarone. Converted upon arrival to the floor to sinus rhythm after amiodorone and diltiazem bolus. - Initial troponin elevated from 0.04-4.0. ? Cardiology consulted, s/p [facility] with DOE x 3 in LCx, LAD. Patient tolerated procedure well. There is a persistent mid LAD lesion, cardiology plans to follow-up in 4 to 6 weeks with stress test to evaluate for ischemia. ? ECHO shows normal LV systolic function. - Patient was slightly hypotensive after starting Bumex yesterday, help today. BP improved with gentle bolus. - Contnue ASA 81mg, Plavix 75mg, Jardiance 10 mg today. ? Continue Eliquis 5 mg twice daily. #Chronic hypoxic, hypercapnic respiratory failure #COPD exacerbation #Hospital acquired pneumonia #Sepsis ? Patient had increased work on breathing this morning, with diffuse wheezing and increased cough. Improved with breathing treatments, steroids. - Pulmonary consulted, transitioned to Xopenex q6h and Pulmicort BID. - COntinued prednisone 40mg tomorrow day 2/5. - Started levofloxicin for HAP, follow-up sputum cultures. Sepsis with tachycardia, tachypnea. - Continue 3L NC, wean as tolerated. #Falls at home #Physical deconditioning - PT/OT consulted, appreciate recommendations in the morning. Previously recommended SNF placement at last admission. #Chronic pulmonary embolism: Eliquis. #Hypertension: Holding blood pressure medication at this time, will evaluate home regimen and consider resuming in the morning. Patient normotensive at 128/48 #Dementia: resumed home donepezil and memantine #Anxiety/depression: Resumed home buspirone, duloxetine. #Hypothyroidism: Resumed home levothyroxine 125 mcg. TSH 0.16 two months ago. Obesity complicates all aspects of her care. Concern for obesity hy poventilation component to her respiratory failure. Full code Eliquis twice daily
[2024-07-12] MEDS: SODIUM CHLORIDE 3% 15ML NEB 3 ML IH (23:20)
[2024-07-13] VITALS (7 sets, daily range): BP systolic 117–152; BP diastolic 61–79; PULSE 86–121; RESP 16–22; TEMP 36.8–37.2; O2SAT 90–99; BMI 44.0
[2024-07-13] MEDS: ACETAMINOPHEN 325MG TAB 650 MG PO ×2 (01:29→08:37)
--- NOTE | 2024-07-13 03:45 | PC.NURSE ---
Pt AOx4 this shift. C/o headache and received tylenol earlier in the shift and has reported some relief. Pt is currently resting in bed with eyes closed. Respirations even and unlabored. Resting in low, locked bed with call light in reach. Family at bedside.
[2024-07-13] MEDS: BUDESONIDE 0.5MG/2ML NEB 0.5 MG IH (06:02)
[2024-07-13] MEDS: IPRATROPIUM BROMIDE 0.5 MG/2.5ML SOLUTION IH ×2 (06:02→10:56)
[2024-07-13] MEDS: LEVALBUTEROL 0.63MG/3ML NEB 0.63 MG IH ×2 (06:02→10:56)
[2024-07-13] MEDS: FLUTICASONE/SALMETEROL 250/50MCG DISKUS 1 PUFF IH (06:02)
[2024-07-13] MEDS: LEVOTHYROXINE 125MCG (0.125MG) TAB 125 MCG PO (06:14)
[2024-07-13] MEDS: ASPIRIN EC 81MG TABLET 81 MG PO (08:29)
[2024-07-13] MEDS: MEMANTINE 10MG TABLET 5 MG PO (08:30)
[2024-07-13] MEDS: APIXABAN 5MG TABLET 5 MG PO (08:30)
[2024-07-13] MEDS: DOCUSATE SODIUM 100 MG CAPSULE PO (08:30)
[2024-07-13] MEDS: DULOXETINE 30MG CAPSULE.DR 60 MG PO (08:31)
[2024-07-13] MEDS: DAPAGLIFLOZIN PROPANEDIOL 10 MG TABLET PO (08:31)
[2024-07-13] MEDS: CLOPIDOGREL 75MG TAB 75 MG PO (08:31)
[2024-07-13] MEDS: BUSPIRONE HCL 10 MG TABLET 30 MG PO (08:31)
[2024-07-13] MEDS: AMIODARONE 200MG TABLET 400 MG PO (08:32)
[2024-07-13] MEDS: NYSTATIN TOPICAL POWDER 30GM TP ×2 (09:29→12:57)
[2024-07-13] MEDS: predniSONE 20MG TAB 40 MG PO (10:15)
--- NOTE | 2024-07-13 10:54 | P.PN_ITS ---
Subjective *Date: 07/13/24 *Time: 13:39 Interval history: No acute respiratory events overnight. Denies any new respiratory complaints. Pulmonology Exam Inpatient Vital signs and Labs for Last 24 Hours: Temp Pulse Resp BP Pulse Ox O2 Del Method O2 Flow Rate 99 F 99 H 20 126/74 93 L Nasal Cannula 2.5 07/13/24 08:00 07/13/24 08:00 07/13/24 08:00 07/13/24 08:00 07/13/24 08:00 07/13/24 09:00 07/13/24 09:00 Laboratory Results - last 24 hr 07/12/24 09:02: Procalcitonin 0.089 07/12/24 12:52: Chlamy pneumoniae PCR Not detected, Adenovirus (PCR) Not detected, B. pertussis DNA (PCR) Not detected, Coronavirus OC43 (PCR) Not detected, Coronavirus HKU1 (PCR) Not detected, Coronavirus 229E (PCR) Not detected, SARS-CoV-2 (PCR) Not detected, Coronavirus NL63 (PCR) Not detected, Human Metapneumovir PCR Not detected, Influenza A (H1) PCR Not detected, Influ A (H1N1/09) PCR Not detected, Influenza A (H3) PCR Not detected, Influenza Type A (PCR) Not detected, Influenza Type B (PCR) Not detected, M. pneumoniae (PCR) Not detected, Parainfluenza 1 (PCR) Not detected, Parainfluenza 2 (PCR) Not detected, Parainfluenza 3 (PCR) Not detected, Parainfluenza 4 (PCR) Not detected, RSV (PCR) Not detected, Entero/Rhino (PCR) Not detected Temp Pulse Resp BP Pulse Ox O2 Del Method O2 Flow Rate 98.5 F 85 20 91/34 L 100 Nasal Cannula 3 07/12/24 12:00 07/12/24 12:00 07/12/24 12:00 07/12/24 12:00 07/12/24 12:00 07/12/24 12:00 07/12/24 12:00 Laboratory Results - last 24 hr 07/12/24 09:02: WBC 7.7, RBC 3.47 L, Hgb 9.4 L, Hct 32.6 L, MCV 93.9, MCH 27.1, MCHC 28.8 L, RDW 17.6 H, Plt Count 190, MPV 10.5 H, Neut % (Auto) 64.1, Lymph % (Auto) 19.8, [place] % (Auto) 11.5 H, Eos % (Auto) 3.5, Baso % (Auto) 0.8, Neut # (Auto) 4.9, Lymph # (Auto) 1.5, [place] # (Auto) 0.9, Eos # (Auto) 0.3, Baso # (Auto) 0.1, Sodium 137, Potassium 3.8, Chloride 93 L, Carbon Dioxide 43 H*, Anion Gap 4.8 L, BUN 11 D, Creatinine 0.90, Estimated Creat Clear 35, Estimated GFR 60, Est GFR ( Amer) 73, Glucose 126 H, Calcium 7.9 L, Total Bilirubin 0.1 L, AST 44 H D, ALT 18, Alkaline Phosphatase 71, Total Protein 5.5 L, Albumin 2.9 L, Globulin 2.6, Albumin/Globulin Ratio 1.1 07/12/24 10:27: Specimen Source Nrm, O2 % 100, ABG pH 7.46 H, ABG pCO2 62.5 H, ABG pO2 224.3 H, ABG HCO3 43.1 H, ABG Total CO2 45.0 H, ABG O2 Saturation 100, ABG Base Excess 19.2 H, ABG Lactate 1.0 I & O for Labs for Last 24 Hours: Intake & Output 07/10/24 07/11/24 07/12/24 07/13/24 23:59 23:59 23:59 23:59 Intake Total 240 / 240 1475 / 1625 1350 / 1350 360 / 360 Output Total 400 / 400 1250 / 1250 4850 / 4850 600 / 600 Balance -160 / -160 225 / 375 -3500 / -3500 -240 / -240 Weight 242 lb 246 lb 250 lb 8 oz 248 lb 8 oz Intake & Output 07/09/24 07/10/24 07/11/24 07/12/24 23:59 23:59 23:59 23:59 Intake Total 240 / 240 1475 / 1625 390 / 390 Output Total 400 / 400 1250 / 1250 2450 / 2450 Balance -160 / -160 225 / 375 -206 / -2060 Weight 242 lb 246 lb 250 lb 8 oz Constitutional: Present moderate distress Head: Present normocephalic and atraumatic ENT: Present normal exam, normal oropharynx and mucous membranes moist Neck: Present normal inspection and full ROM Respiratory: Present respiratory distress, crackles and able to speak in complete sentences; Absent prolonged expiratory phase or wheezes Cardiac: Present S1/S2, Tachycardia and radial pulses present GI: Present soft and distention; Absent tenderness or guarding Rectal (female): Present deferred (female): Present deferred Skin: Present intact; Absent cyanosis or jaundice Neuro: Present alert, awake and oriented x 3 Extremities: Present normal inspection; Absent clubbing or cyanosis Psychiatric: Present normal affect and cooperative Assessment and Plan *Assessment and plan (1) Acute on chronic respiratory failure with hypoxemia: Status: Acute Category: Medical Code(s): J96.21 - Acute and chronic respiratory failure with hypoxia (2) Pneumonia: Status: Acute Qualifiers: Laterality: right Lung location: unspecified part of lung Pneumonia type: due to unspecified organism Qualified Code(s): J18.9 - Pneumonia, unspecified organism Category: Medical Code(s): J18.9 - Pneumonia, unspecified organism Plan Ms. Garcia is a 79-year-old female COPD, chronic hypoxic hypercarbic respiratory failure on 2 to 3 L nasal Román supplementation at baseline, triple inhaler therapy presented to the ER with A-fib RVR, status post left heart cath DOE to circumflex to the RCA, cardiology following, found to be having worsening respiratory distress today and pulmonary was called for further evaluation and management. Afebrile. Hemodynamically stable. No evidence of leukocytosis. Blood gas from admission from today chronic hypercarbic respiratory failure with a pH of 7.46 and a PCO2 62.5. PO2 of 224.3. Chest x-ray from this morning continued to show cardiomegaly, similar to her prior chest x-rays. Cannot completely rule out left lower lobe airspace disease. Initiated on levofloxacin. On initial examination patient appeared to be in moderate respiratory distress. No significant wheezing noted on auscultation. On 3 L saturating 100%. Wean oxygen as tolerated. Interval update: No acute respiratory events overnight. Afebrile. Hemodynamically stable. Stable oxygen requirements. Continue to receive nebulization therapies and antibiotics. Stable leukocytosis. Pro-Fortunato within normal limits at 0.089. Sputum specimen suboptimal. Plan: Xopenex and ipratropium every 6 hours along with Pulmicort every 12 scheduled Levofloxacin to complete a total of 3-day course Continue oxygen supplementation to maintain O2 saturation goal of 90% and above. Weaned to room air this morning. Will follow-up
--- NOTE | 2024-07-13 11:18 | P.PN_ITS ---
Subjective Subjective Date: 07/13/24 Time: 08:00 Principal diagnosis: afib rvr, chest pain and soa. Interval history: This morning patient is resting comfortably in bed. She reports she is feeling better than yesterday. Denies chest pain. Maintaining oxygen saturation on 2 L nasal cannula which is what she wears at home. Currently being treated for pneumonia per primary service. Morning labs reviewed and stable Exam Data for Last 24 hours Vital signs and Labs for Last 24 Hours: Temp Pulse Resp BP Pulse Ox O2 Del Method O2 Flow Rate 99 F 86 20 126/74 99 Nasal Cannula 2 07/13/24 08:00 07/13/24 10:57 07/13/24 08:00 07/13/24 08:00 07/13/24 10:57 07/13/24 10:57 07/13/24 10:57 Laboratory Results - last 24 hr 07/12/24 09:02: Procalcitonin 0.089 07/12/24 12:52: Chlamy pneumoniae PCR Not detected, Adenovirus (PCR) Not detected, B. pertussis DNA (PCR) Not detected, Coronavirus OC43 (PCR) Not detected, Coronavirus HKU1 (PCR) Not detected, Coronavirus 229E (PCR) Not detected, SARS-CoV-2 (PCR) Not detected, Coronavirus NL63 (PCR) Not detected, Human Metapneumovir PCR Not detected, Influenza A (H1) PCR Not detected, Influ A (H1N1/09) PCR Not detected, Influenza A (H3) PCR Not detected, Influenza Type A (PCR) Not detected, Influenza Type B (PCR) Not detected, M. pneumoniae (PCR) Not detected, Parainfluenza 1 (PCR) Not detected, Parainfluenza 2 (PCR) Not detected, Parainfluenza 3 (PCR) Not detected, Parainfluenza 4 (PCR) Not detected, RSV (PCR) Not detected, Entero/Rhino (PCR) Not detected I & O for Last 24 hours: Intake & Output 07/10/24 07/11/24 07/12/24 07/13/24 23:59 23:59 23:59 23:59 Intake Total 240 / 240 1475 / 1625 1350 / 1350 360 / 360 Output Total 400 / 400 1250 / 1250 4850 / 4850 600 / 600 Balance -160 / -160 225 / 375 -3500 / -3500 -240 / -240 Weight 242 lb 246 lb 250 lb 8 oz 248 lb 8 oz Constitutional Constitutional: no acute distress *Routine Respiratory Exam Respiratory: Present CTA bilaterally and symmetric chest movement *Routine Cardiovascular Exam Cardiovascular: Present RRR, Normal S1 and Normal S2 *Routine Abdominal Exam Abdominal: Present soft and normoactive bowel sounds; Absent tenderness *Routine Extremities Exam Extremities: Present full ROM and normal capillary refill; Absent edema *Routine Skin Exam Skin: Present intact, dry and warm Detailed Neck Exam: Thyroids Thyroid: Absent bruit Progress Note: A&P Assessment and plan (1) Acute on chronic respiratory failure with hypoxemia: Status: Acute (2) Pneumonia: Status: Acute Assessment and Plan Assessment and Plan for All Diagnoses:: Acute onset A-fib RVR Chadsvasc score >2 History of bilateral pulmonary emboli D-dimer negative on admission Initial EKG on presentation was A-fib RVR Converted to normal sinus rhythm after Dilt bolus and fluids Remains in normal sinus rhythm Contineu Eliquis 5mg po BID Continue Amiodarone 400mg p.o. BID CAD NSTEMI Left heart cath yesterday-DOE to circumflex, 2 DOE RCA. Recommend continue monitoring the mid LAD stenosis and consider outpatient stress testing in 4 to 6 weeks to determine if the anterior wall has ischemia. If so we will bring back to the [facility] for stenting of the mid LAD. Continue aspirin 81 mg p.o. daily, Plavix 75 mg daily and atorvastatin 40 mg daily History of HFpEF Mild right RV dilation with mild reduction in RV function Echo February 2024 shows a normal ejection fraction, Confirmed with a cardiac MRI February 2024 Repeat echo shows normal LV systolic function with mild RV dilation and mild reduction in RV function. Biatrial dilation, mild MR Continue Farxiga Pneumonia COPD exacerbation Defer to primary service and pulmonology CV summary 07/13/2004: Patient is CV stable. Cardiology will sign off. Please have patient follow-up in cardiology clinic in 1 week for reevaluation. Please contact service as needed for any additional concerns. Cardiac meds: Eliquis 5 mg p.o. twice daily Amiodarone 400 mg p.o. twice daily Aspirin 81 mg p.o. daily Plavix 75 mg p.o. daily Atorvastatin 40 mg p.o. daily Farxiga 10 mg p.o. daily
[2024-07-13 11:39] LABS: Basophils % 0.2 % (0.1-2.0); Eosinophils % 0.2 % (0.1-12.0); Hematocrit 33.1 % (37.0-47.0); Hemoglobin 9.9 g/dL (12.2-16.2); Immature Granulocytes # 0.08 10^3uL; Immature Granulocytes % 0.6 %; Lymphocytes % 15.8 % (10-50); Mean Corpuscular HGB Conc 29.9 g/dL (31.8-35.4); Mean Corpuscular Hemoglobin 26.8 pg (27.0-31.2); Mean Corpuscular Volume 89.7 fl (81-99); Mean Platelet Volume 10.4 fl (7.4-10.4); Monocytes # 1.2 K/mm3 (0.1-1.0); Monocytes % 9.2 % (1.7-9.3); Neutrophils # 9.3 K/mm3 (1.8-7.8); Nucleated Red Blood Cells # 0 10^3/uL; Nucleated Red Blood Cells % 0 %; Platelet Count 225 K/mm3 (142-424); Red Blood Count 3.69 M/mm3 (4.20-5.40); Red Cell Distribution Width 17.7 % (11.5-17.5); Red Cell Distribution Width-SD 58.3 fL; White Blood Count 12.6 K/mm3 (4.8-10.8)
[2024-07-13 11:51] LABS: Alanine Aminotransferase 16 U/L (12-78); Albumin Level 3.2 g/dl (3.5-5.0); Albumin/Globulin Ratio 1.1 (1.1-1.8); Alkaline Phosphatase 78 U/L (38-126); Aspartate Amino Transferase 32 U/L (14-36); Bilirubin,Total 0.4 mg/dl (0.2-1.3); Blood Urea Nitrogen 18 mg/dl (7-17); Calcium 8.4 mg/dl (8.4-10.2); Chloride 92 mmol/L (98-107); Creatinine Clearance Estimated 35 mL/min (50-200); Estimated Glomerular Filt Rate 60 ml/min (>60); GFR (African American) 73 ML/MIN (>60); Globulin 2.8 g/dL (1.3-3.2); Glucose 123 mg/dl (74-100); Magnesium 1.7 mg/dl (1.6-2.3); Potassium 3.6 mmoL/L (3.5-5.1); Sodium 135 mmol/L (136-145)
[2024-07-13 11:57] LABS: Carbon Dioxide 42 mmol/L (22.0-30.0)
[2024-07-13 11:58] LABS: Anion Gap 4.6 mEq/L (5-15)
--- NOTE | 2024-07-13 12:55 | PC.NURSE ---
Respiratory weaned pt to room air. Tech notified this RN that pt's sats were 85-88% on room air. Pt put back on 2L NC at this time.
--- NOTE | 2024-07-13 14:22 | EXP.DC.SUM ---
General Admission date:: 07/10/24 HPI HPI HPI: Ms. Garcia that we know was recently discharged on 05/14/2024 for similar episode. She has been on a beta-debbie calcium channel debbie and anticoagulation at home and went back into atrial fib with RVR having significant shortness of breath and hypoxia. Ambulance was called and she was brought to the emergency room. Patient was given a IV bolus dose of Cardizem and was getting ready to start on amiodarone when converted back to sinus rhythm. The ER physician had been speaking with Dr. Pope on the phone. Plans at this time to admit her were talked about and if so a BLESSING would be done in the morning so she will be kept n.p.o. When I came in to see the patient she was doing much better still wearing oxygen family members in the room with her. Stated that she had been in an emotional crisis as there was some family issue earlier today.., She is not comfortable in the bed with oxygen saturations at 95% heart rate sinus rhythm in the 80s skin [place] warm and dry in no distress From the patient's history and talking with her she uses a walker to get around the house and she is able to get from 1 room to the other but this takes effort and she does become short of breath when doing this. But noted that she is still being able to use the bathroom by herself. Her memory is a little bit blunted but she is appropriate and does answer most questions well. From discharge note is supposed to be on metoprolol 25 mg twice a day that is from 01 June. Patient be put on the floor will repeat EKG now that she is out of atrial fibs is in sinus rhythm on monitor beside the bed. Hospital Course Hospital Course Hospital Course: Patiot Garcia is an 79-year-old female with a medical history significant for COPD on home O2, hypertension, pulmonary embolism, hypertension, dementia, anxiety/depression, hypothyroidism who presents with shortness of breath, fatigue and tachycardia. Case discussed with ER physician, concern for A-fib with RVR. #Afib with RVR #NSTEMI #HFpEF - In A-fib RVR on arrival. Started on amiodarone. Converted upon arrival to the floor to sinus rhythm after amiodorone and diltiazem bolus. - Initial troponin elevated from 0.04-4.0. Cardiology consulted, s/p LHC with DOE x 3 in LCx, LAD. Patient tolerated procedure well. There is a persistent mid LAD lesion, cardiology plans to follow-up in 4 to 6 weeks with stress test to evaluate for ischemia. ? ECHO shows normal LV systolic function. - Continue ASA 81mg, Plavix 75mg, Farxiga 10 mg, Eliquis 5 mg twice daily. ? Discharged with amiodarone 400 mg twice daily. Will follow-up with cardiology within 2 weeks. #Chronic hypoxic, hypercapnic respiratory failure #COPD exacerbation #Hospital acquired pneumonia #Sepsis ? Clinically improved with breathing treatments, steroids, levofloxacin. ? Discharged with levofloxacin, prednisone for 3 more days. #Falls at home #Physical deconditioning - PT/OT consulted, recommended home with home health. #Chronic pulmonary embolism: Eliquis. #Hypertension: Patient had soft blood pressures during admission, holding Entresto, amlodipine, atenolol. #Dementia: resumed home donepezil and memantine #Anxiety/depression: Resumed home buspirone, duloxetine. #Hypothyroidism: Resumed home levothyroxine 125 mcg. TSH 0.16 two months ago. Obesity complicates all aspects of her care. Concern for obesity hypoventilation component to her respiratory failure. Total time spent on discharge: 33 minutes on chart review, counseling, documentation, and direct care with patient. Exam Data for Last 24 hours Vital signs and Labs for Last 24 Hours: Temp Pulse Resp BP Pulse Ox O2 Del Method O2 Flow Rate 98.2 F 100 H 22 152/62 H 90 L Nasal Cannula 2 07/13/24 12:00 07/13/24 12:00 07/13/24 12:00 07/13/24 12:00 07/13/24 12:00 07/13/24 13:00 07/13/24 13:00 Laboratory Results - last 24 hr 07/12/24 09:02: Procalcitonin 0.089 07/12/24 12:52: Chlamy pneumoniae PCR Not detected, Adenovirus (PCR) Not detected, B. pertussis DNA (PCR) Not detected, Coronavirus OC43 (PCR) Not detected, Coronavirus HKU1 (PCR) Not detected, Coronavirus 229E (PCR) Not detected, SARS-CoV-2 (PCR) Not detected, Coronavirus NL63 (PCR) Not detected, Human Metapneumovir PCR Not detected, Influenza A (H1) PCR Not detected, Influ A (H1N1/09) PCR Not detected, Influenza A (H3) PCR Not detected, Influenza Type A (PCR) Not detected, Influenza Type B (PCR) Not detected, M. pneumoniae (PCR) Not detected, Parainfluenza 1 (PCR) Not detected, Parainfluenza 2 (PCR) Not detected, Parainfluenza 3 (PCR) Not detected, Parainfluenza 4 (PCR) Not detected, RSV (PCR) Not detected, Entero/Rhino (PCR) Not detected 07/13/24 11:32: WBC 12.6 H D, RBC 3.69 L, Hgb 9.9 L, Hct 33.1 L, MCV 89.7, MCH 26.8 L, MCHC 29.9 L, RDW 17.7 H, Plt Count 225, MPV 10.4, Neut % (Auto) 74.0, Lymph % (Auto) 15.8, [place] % (Auto) 9.2, Eos % (Auto) 0.2, Baso % (Auto) 0.2, Neut # (Auto) 9.3 H, Lymph # (Auto) 2.0, [place] # (Auto) 1.2 H, Eos # (Auto) 0.0, Baso # (Auto) 0.0, Sodium 135 L, Potassium 3.6, Chloride 92 L, Carbon Dioxide 42 H*, Anion Gap 4.6 L, BUN 18 H D, Creatinine 0.90, Estimated Creat Clear 35, Estimated GFR 60, Est GFR ( Amer) 73, Glucose 123 H, Calcium 8.4, Magnesium 1.7 D, Total Bilirubin 0.4, AST 32 D, ALT 16, Alkaline Phosphatase 78, Total Protein 6.0 L, Albumin 3.2 L D, Globulin 2.8, Albumin/Globulin Ratio 1.1 I & O for Last 24 hours: Intake & Output 07/10/24 07/11/24 07/12/24 07/13/24 23:59 23:59 23:59 23:59 Intake Total 240 / 240 1475 / 1625 1350 / 1350 760 / 760 Output Total 400 / 400 1250 / 1250 4850 / 4850 600 / 600 Balance -160 / -160 225 / 375 -3500 / -3500 160 / 160 Weight 109.769 kg 111.584 kg 113.625 kg 112.7 kg Constitutional Constitutional: no acute distress *Routine Respiratory Exam Respiratory: Present CTA bilaterally and symmetric chest movement *Routine Cardiovascular Exam Cardiovascular: Present RRR, Normal S1 and Normal S2 *Routine Abdominal Exam Abdominal: Present soft and normoactive bowel sounds; Absent tenderness *Routine Extremities Exam Extremities: Present full ROM and normal capillary refill; Absent edema *Routine Skin Exam Skin: Present intact, dry and warm Detailed Neck Exam: Thyroids Thyroid: Absent bruit Results Data Completed and Pending Labs on day of discharge: Labs from last 24 hours 07/13/24 07/12/24 07/12/24 11:32 12:52 09:02 WBC 12.6 H D RBC 3.69 L Hgb 9.9 L Hct 33.1 L MCV 89.7 MCH 26.8 L MCHC 29.9 L RDW 17.7 H Plt Count 225 MPV 10.4 Neut % (Auto) 74.0 Lymph % (Auto) 15.8 [place] % (Auto) 9.2 Eos % (Auto) 0.2 Baso % (Auto) 0.2 Neut # (Auto) 9.3 H Lymph # (Auto) 2.0 [place] # (Auto) 1.2 H Eos # (Auto) 0.0 Baso # (Auto) 0.0 Sodium 135 L Potassium 3.6 Chloride 92 L Carbon Dioxide 42 H* Anion Gap 4.6 L BUN 18 H D Creatinine 0.90 Estimated Creat Clear 35 Estimated GFR 60 Est GFR ( Amer) 73 Glucose 123 H Calcium 8.4 Magnesium 1.7 D Total Bilirubin 0.4 AST 32 D ALT 16 Alkaline Phosphatase 78 Total Protein 6.0 L Albumin 3.2 L D Globulin 2.8 Albumin/Globulin Ratio 1.1 Procalcitonin 0.089 Chlamy pneumoniae PCR Not detected Adenovirus (PCR) Not detected B. pertussis DNA (PCR) Not detected Coronavirus OC43 (PCR) Not detected Coronavirus HKU1 (PCR) Not detected Coronavirus 229E (PCR) Not detected SARS-CoV-2 (PCR) Not detected Coronavirus NL63 (PCR) Not detected Human Metapneumovir PCR Not detected Influenza A (H1) PCR Not detected Influ A (H1N1/09) PCR Not detected Influenza A (H3) PCR Not detected Influenza Type A (PCR) Not detected Influenza Type B (PCR) Not detected M. pneumoniae (PCR) Not detected Parainfluenza 1 (PCR) Not detected Parainfluenza 2 (PCR) Not detected Parainfluenza 3 (PCR) Not detected Parainfluenza 4 (PCR) Not detected RSV (PCR) Not detected Entero/Rhino (PCR) Not detected DS: Diagnosis Discharge Diagnosis (1) Acute on chronic respiratory failure with hypoxemia: Status: Acute Code(s): J96.21 - Acute and chronic respiratory failure with hypoxia (2) Pneumonia: Status: Acute Code(s): J18.9 - Pneumonia, unspecified organism Qualifiers: Laterality: right Lung location: unspecified part of lung Pneumonia type: due to unspecified organism Qualified Code(s): J18.9 - Pneumonia, unspecified organism Meds Home Medications and Allergies Home Medications ?Medication ?Instructions ?Recorded ?Confirmed ?Type donepezil 10 mg tablet 10 mg PO HS 03/12/23 07/24/24 History duloxetine 60 mg capsule,delayed 60 mg PO DAILY 03/12/23 07/24/24 History release levothyroxine 125 mcg tablet 125 mcg PO DAILYDM 03/12/23 07/24/24 History memantine 5 mg tablet 5 mg PO BID 10/14/23 07/24/24 History apixaban 5 mg tablet (Eliquis) 5 mg PO BID #180 tabs 11/08/23 07/24/24 Rx alendronate 70 mg tablet 70 mg PO WEEKLY 02/12/24 07/24/24 History buspirone 30 mg tablet 30 mg PO BID 02/12/24 07/24/24 History albuterol sulfate 90 mcg/actuation 2 puff inhalation Q4HP PRN 02/13/24 07/24/24 History aerosol inhaler (Ventolin HFA) shortness of breath or wheezing atorvastatin 40 mg tablet 40 mg PO HS 30 days #30 tabs 02/15/24 07/24/24 Rx docusate sodium 100 mg capsule 100 mg PO BID 07/10/24 07/24/24 History (Stool Softener) fluticasone 250 mcg-salmeterol 50 1 ea inhalation BID 07/10/24 07/24/24 History mcg/dose blistr powdr for inhalation trazodone 150 mg tablet 150 mg PO HS 07/10/24 07/24/24 History amiodarone 200 mg tablet 400 mg (2 x 200 mg) PO BID 30 days 07/13/24 07/24/24 Rx #120 tabs aspirin 81 mg tablet,delayed 81 mg PO DAILY 30 days #30 tabs 07/13/24 07/24/24 Rx release clopidogrel 75 mg tablet 75 mg PO DAILY 30 days #30 tabs 07/13/24 07/24/24 Rx dapagliflozin propanediol 10 mg 10 mg PO DAILY 30 days #30 tabs 07/13/24 07/24/24 Rx tablet (Farxiga) furosemide 40 mg tablet 20 mg (1/2 x 40 mg) PO DAILY 30 07/13/24 07/24/24 Rx days #0 tabs levofloxacin 750 mg tablet 750 mg PO DAILY 3 days #3 tabs 07/13/24 07/24/24 Rx prednisone 20 mg tablet 40 mg (2 x 20 mg) PO DAILY 3 days 07/13/24 07/24/24 Rx #6 tabs valsartan 40 mg tablet 40 mg PO BID #60 tabs 07/24/24 07/24/24 Rx New Prescriptions to Start Prescriptions: amiodarone Shahid,Bertin aspirin Shahid,Bertin clopidogrel Shahid,Bertin dapagliflozin propanediol [Farxiga] Shahid,Bertin levofloxacin Shahid,Bertin prednisone Shahid,Bertin Allergies Allergy/AdvReac Type Severity Reaction Status Date / Time sulfamethoxazole (From AdvReac Mild Nausea Verified 07/24/24 13:36 Bactrim) trimethoprim (From Bactrim) AdvReac Mild Nausea Verified 07/24/24 13:36 Discharge Plan Disposition Patient Disposition: Home Health Service Condition: Fair Discharge Order Discharge Orders: Discharge Order (Routine); Ordered 07/13/24 Ordered By: Bertin Key Follow up Plan Follow up with: Gloria Brown APRN [Nurse Practitioner, Cardiology] - 07/24/24 1:30 pm Laxmi Slaughter MD [Physician, Pulmonology] - 08/02/24 1:00 pm Prescriptions/Medication Reconciliation: New amiodarone 200 mg Tablet 400 mg PO BID 30 Days Qty: 120 0RF clopidogrel 75 mg Tablet 75 mg PO DAILY 30 Days Qty: 30 0RF aspirin 81 mg Tablet,Delayed Release (Dr/Ec) 81 mg PO DAILY 30 Days Qty: 30 0RF dapagliflozin propanediol [Farxiga] 10 mg Tablet 10 mg PO DAILY 30 Days Qty: 30 0RF prednisone 20 mg Tablet 40 mg PO DAILY 3 Days Qty: 6 0RF levofloxacin 750 mg tablet 750 mg PO DAILY 3 Days Qty: 3 0RF Continued Eliquis 5 mg tablet 5 mg PO BID Qty: 180 2RF trazodone 150 mg tablet 150 mg PO HS docusate sodium [Stool Softener] 100 mg capsule 100 mg PO BID fluticasone propion-salmeterol 250-50 mcg/dose blister with device 1 ea INHALATION BID donepezil 10 mg tablet 10 mg PO HS levothyroxine 125 mcg tablet 125 mcg PO DAILYDM duloxetine 60 mg capsule,delayed release(DR/EC) 60 mg PO DAILY memantine 5 mg tablet 5 mg PO BID alendronate 70 mg tablet 70 mg PO WEEKLY buspirone 30 mg tablet 30 mg PO BID albuterol sulfate [Ventolin HFA] 90 mcg/actuation HFA aerosol inhaler 2 puff inhalation Q4HP PRN (Reason: shortness of breath or wheezing) atorvastatin 40 mg Tablet 40 mg PO HS 30 Days Qty: 30 0RF Changed furosemide 40 mg tablet 20 mg PO DAILY 30 Days Qty: 0 0RF Discontinued Entresto 49-51 mg tablet 1 tab PO BID atenolol 25 mg tablet 25 mg PO DAILY amlodipine 5 mg tablet 5 mg PO DAILY No Action valsartan 40 mg tablet 40 mg PO BID Qty: 60 5RF Other Ambulatory Orders: Basic Metabolic Panel (Routine) Timeframe: 20240724 Facility: [facility] - Location: Laboratory Ordered By: Gloria Brown Complete Blood Count Man Dif (Routine) Timeframe: 20240724 Facility: [facility] - Location: Laboratory Ordered By: Gloria Brown Problem Reconciliation Problems Reviewed?: Yes Patient Discharge Instructions Patient Instructions: Heart-Healthy Diet, DI for Heart Failure, DI for Atrial Fibrillation, Stop Light Heart Failure Print Language: Citizen Of [place] Providers Primary Care Provider: Earl Dumont Admit Provider: Robert Gan Attending Provider: Robert Gan
--- NOTE | 2024-07-13 14:45 | HMH.OTEV ---
OT Inpatient Evaluation Rehab OT IP Evaluation Start: 07/10/24 05:36 Freq: ONCE Status: Complete Protocol: Document 07/10/24 10:58 CAITLIN (Rec: 07/10/24 11:12 CAITLIN [id number]) Rehab OT IP Assessment Subjective History HPI narrative: 79-year-old female presents to the ER via EMS. EMS reports family called stating the patient was satting in the 70s on her baseline oxygen and is very short of breath. Patient's only complaint on arrival was mild back pain. Patient is an extremely poor historian and difficult to obtain history from. When questioned further she stated she has been feeling short of breath for the last day or so and reports maybe having a little chest pain or earlier in the afternoon. She also states she thought her legs were maybe a bit more swollen than normal. She reports being compliant with her medications. EMS reports patient was found in atrial fibrillation with RVR, heart rate in the 120s to 140s, she was also borderline hypotensive. No medications administered in route. Patient reports not knowing anything about atrial fibrillation and having never heard of it before , however she is already on apixaban and review of records from most recent admission demonstrates she had atrial fibrillation at that time. Patient denies recent illness. No other complaints or concerns. Subjective I want to go home. Pt was supine in bed when therapy arrived. pt orient x3 . pt reported they live in single story home with no steps. pt reported they use a walker for functional mobility. pt reported they live with granddaughter. pt reported they need some assistance with bathing and ind in dressing. pt reported granddaughter assists with IADLs. Pt agreed to sit on EOB. Pt went from supine to EOB with CGA. Pt then went from EOB to standing with walker with Min A. pt then able to complete functional mobility task of 8 feet with walker with CGA. pt then able to sit back on EOB. pt then went from EOB to supine with CGA. pt left supine in bed with call light and all other needs within reach. pt also left with family in room. Objective Patient Orientation Person,Place,Birthday Right Upper WFL Extremity Gross ROM Left Upper Extremity WFL Gross ROM Bed Mobility bed mobility-scooting,bed mobility - supine/sit Assist Level Contact Guard/Hand Hold Transfer Training Sit/Stand Transfer Assist Level Minimal x 1 (25% assist) Chair Transfer Minimal x 1 (25% assist) Ability Chair Transfer Sit to/from Ambulatory Technique Chair Transfer Standard Walker Assistive Devices Decrease in Yes Endurance Rehab OT IP prob,goals,plan Problems Date of Evaluation: 07/10/24 OT IP Problems Bed Mobility,Transfers,Balance,Self care,Safety Rehab Potential Rehab Potential Good Equipment Needs Assistive Devices Standard Walker Plan OT intervention Plan Bed Mobility,Transfers,Balance,Self care,Safety, Therapeutic Exercise OT Plan Frequency Daily Duration LOS Discharge Goals Bed Mobility Ability Standby Assistance Sit to Stand Chair Contact Guard/Hand Hold Transfer Ability Chair Transfer Contact Guard/Hand Hold Ability Chair Transfer Sit to/from Ambulatory Technique Chair Transfer Standard Walker Assistive Devices Feeding Ability Assist with Tray Set Up Commode/Toilet Raised Toilet Seat,Grab Bars Transfer Assistive Devices Decrease in No Endurance Discharge Plan OT Discharge Plan At this time, pt is at baseline and would not benefit from skilled OT services and interventions while being seen at [facility]. Once DC from [facility], pt could benefit from skilled OT services and interventions with Home Health to improve occupational performance, endurance, safety, and QOL. Eval Complexity Eval Charge Codes 55534 - Moderate Complexity Rehab OT IP Evaluation Start: 07/13/24 10:00 Freq: ONCE Status: Active Protocol: Document 07/13/24 14:42 ARS[place] (Rec: 07/13/24 14:45 [facility] [id number]) Rehab OT IP Assessment Subjective History HPI narrative: 79-year-old female presents to the ER via EMS. EMS reports family called stating the patient was satting in the 70s on her baseline oxygen and is very short of breath. Patient's only complaint on arrival was mild back pain. Patient is an extremely poor historian and difficult to obtain history from. When questioned further she stated she has been feeling short of breath for the last day or so and reports maybe having a little chest pain or earlier in the afternoon. She also states she thought her legs were maybe a bit more swollen than normal. She reports being compliant with her medications. EMS reports patient was found in atrial fibrillation with RVR, heart rate in the 120s to 140s, she was also borderline hypotensive. No medications administered in route. Patient reports not knowing anything about atrial fibrillation and having never heard of it before , however she is already on apixaban and review of records from most recent admission demonstrates she had atrial fibrillation at that time. Patient denies recent illness. No other complaints or concerns. Subjective My legs are strong. Pt was supine in bed when therapy arrived. pt orient x3 . pt reported they live in single story home with no steps. pt reported they use a walker for functional mobility. pt reported they live with granddaughter. pt reported they need some assistance with bathing and ind in dressing. pt reported granddaughter assists with IADLs. Pt agreed to sit on EOB. Pt went from supine to EOB with CGA. Pt then went from EOB to standing with walker with sba. pt then able to complete functional mobility task of 14 feet with walker with CGA. pt then able to sit back on EOB. pt then went from EOB to supine with CGA. pt left supine in bed with call light and all other needs within reach. pt also left with family in room. Objective Patient Orientation Person,Place,Birthday Right Upper WFL Extremity Gross ROM Left Upper Extremity WFL Gross ROM Bed Mobility bed mobility-scooting,bed mobility - supine/sit Assist Level Contact Guard/Hand Hold Transfer Training Sit/Stand Transfer Assist Level Contact Guard/Hand Hold Rehab OT IP prob,goals,plan Problems Date of Evaluation: 07/13/24 Rehab Potential Rehab Potential Innapropriate for Skilled Therapy Discharge Plan OT Discharge Plan At this time, pt is at baseline and would not benefit from skilled OT services and interventions while being seen at [facility]. Once DC from [facility], pt could benefit from skilled OT services and interventions with Home Health to improve occupational performance, endurance, safety, and QOL. Eval Complexity Eval Charge Codes 35091 - Low Complexity PHYSICIAN CERTIFICATION: I certify the specified therapy services for Patito Garcia are required, authorized, and reviewed every 30 days.
--- NOTE | 2024-07-13 15:58 | HMH.IPREAS ---
Rehab IP Re-assessment Rehab IP Re-assessment Start: 07/13/24 14:24 Freq: Status: Active Protocol: Document 07/13/24 14:24 TARI (Rec: 07/13/24 14:32 TARI [id number]) E-signed By Jessie Orozco, PT Subjective Subjective Subjective Pt reports she hasn't been performing in-room mobility but has ambulated to bathroom well with nursing staff. My legs are strong Rehab IP PT Reassessment Eval Objective Appearance Patient Behavior Appropriate,Cooperative Patient Orientation Person Difficulty following none instructions Speech Pattern Clear Ambulation Patient Able to Yes Ambulate Ambulation Observation IP General Gait Wide Based Gait Pattern Observation Ambulation Distance 25 (feet) Ambulation Assistive Rolling Walker Device Ambulation Ability Supervision/Stand by Balance Ability to Arise Able, uses arms to help Sitting Balance Steady, safe Standing Balance Steady, wide stance Dynamic Sitting Good Balance Ability Dynamic Standing Good Balance Ability Transfers Bed Transfer Ability Supervision/Stand by Sit to Stand Bed Supervision/Stand by Transfer Ability Rehab IP PT Reassessment of problems, goals, plan Problems Date of Evaluation: 07/13/24 PT IP Problems Other Other Pt Problem Endurance Discharge Plan PT Discharge Plan Reassessment performed d/t need for updated discharge recommendations d/t pt weakness. Pt still demonstrated modified independence with household level mobility and ambulation. Pt is limited in her mobility by SOB and impaired endurance which she reports is her baseline. PT recommending d/c home with 24/7 assistance by granddaughter and HH PT services. G -code Required No IP Reassessment Inpatient Rehab Yes Reassessment Performed PHYSICIAN CERTIFICATION: I certify the specified therapy services for Patito Garcia are required, authorized, and reviewed every 30 days.
--- NOTE | 2024-07-14 10:15 | SW/DCPLANNER ---
Spoke with patient on the phone. Patient stated that she is doing very well. Patient stated that she is aware of her upcoming appointments and that she has them written down. Patient stated that she was able to get her medicine from clinic pharmacy. Patient stated that she has no concerns or questions at this time. Marium Mathew
== END 2024-07-13 16:58 | disposition home health service (06) | DRG 323 ==
LOC: ER 04:42 → 2ND 04:50
PROVIDERS: Internal Medicine; Internal Medicine Pulmonary Disease; Nurse Practitioner; Nurse Practitioner Family; Student in an Organized Health Care Education/Training Program; Admitting Provider Internal Medicine Adolescent Medicine; Emergency Provider Emergency Medicine; PCP Family Medicine; Visit Provider Internal Medicine Adolescent Medicine
PROC: 4A023N7 Measurement of Cardiac Sampling and Pressure, Left Heart, Percutaneous Approach (ICD-10-PCS; CPT 93452; principal; 2024-07-10 11:00)
DX: I48.91 Unspecified atrial fibrillation (principal); A41.9 Sepsis, unspecified organism; I21.4 Non-ST elevation (NSTEMI) myocardial infarction; J18.9 Pneumonia, unspecified organism; J96.21 Acute and chronic respiratory failure with hypoxia; I50.33 Acute on chronic diastolic (congestive) heart failure; J96.12 Chronic respiratory failure with hypercapnia; J44.1 Chronic obstructive pulmonary disease with (acute) exacerbation; J44.0 Chronic obstructive pulmonary disease with (acute) lower respiratory infection; I27.82 Chronic pulmonary embolism; E66.2 Morbid (severe) obesity with alveolar hypoventilation; Z68.41 Body mass index [BMI] 40.0-44.9, adult; F03.90 Unspecified dementia, unspecified severity, without behavioral disturbance, psychotic disturbance, mood disturbance, and anxiety; F41.9 Anxiety disorder, unspecified; F32.A Depression, unspecified; E03.9 Hypothyroidism, unspecified; I11.0 Hypertensive heart disease with heart failure; Y95 Nosocomial condition; R53.81 Other malaise; I25.10 Atherosclerotic heart disease of native coronary artery without angina pectoris; R26.2 Difficulty in walking, not elsewhere classified; D64.9 Anemia, unspecified; Z91.81 History of falling; Z79.890 Hormone replacement therapy; Z79.01 Long term (current) use of anticoagulants; Z79.899 Other long term (current) drug therapy; Z88.1 Allergy status to other antibiotic agents; Z88.2 Allergy status to sulfonamides
CPT/HCPCS: 36415; 71045; 80048; 80053; 82803; 82962; 83605; 83735; 83880; 84145; 84484; 85025; 85347; 85378; 85610; 87070; 87205; 87633; 93005; 93306; 94640; 94761; 97162; 97164; 97165; 97166; 99152; 99153; C1725; C1761; C1769; C1874; J1200; J1644; J1956; J2250; J2919; J3010; J7120; J7614; J7644; Q9967

== ENCOUNTER 2024-08-04 13:10 | Inpatient (IN) | payer MEDICARE, SELFPAY ==
[2024-08-04] VITALS (18 sets, daily range): BP systolic 90–149; BP diastolic 40–121; PULSE 53–71; RESP 13–25; TEMP 36.6–37; O2SAT 90–100; BMI 42.8; BMI 41.9
--- OUTSIDE RECORDS SUMMARY | 2024-08-04 13:21 | XMS_ITS | Data Portability ---
Author Organization [facility] & [place] [facility] ADMIN Address [address] [place] [id number] Care Team Providers Care Surface Lay Out Technician Name Role Phone URI GOMEZ Primary Care Provider [phone] Assessment No assessment recorded. Plan of Treatment Reminders Order Date Submit Date Provider Last Modified By Organization Details Last Modified Time Details Appointments None recorded. Lab None recorded. Referral None recorded. Procedures home sleep testing (PROC) 2022 023 [facility] (Centralized Scheduling), [address] [place], [address], 3 10:53:07 Surgeries None recorded. Imaging CT, chest, w/o contrast 2022 023 [facility] (Centralized Scheduling), [address] [facility], [place], [address], 3 14:35:05 CT, chest, w/o contrast 2022 023 [facility] (Centralized Scheduling), [address], [place], [address], 3 10:45:26 pharmacolo gic stress test 2022 023 [facility] (Centralized Scheduling), [address] [place], [address], 3 13:17:56 Medication Orders Lasix 40 mg tablet 2022 023 [id number], [address] [place], [place], [id number], 3 14:27:57 Entresto 49 mg-51 mg tablet 2022 023 [id number], [address] [facility] [address] [place], [id number], 3 14:49:47 Patient TargetsNo targets recorded. Patient InstructionsNo instructions recorded. Reason for Referral None Reported. Results Created Date Observation Date Name Description Value Unit Range Abnormal Flag Note LastModifiedBy Organization Detail LastModifiedTime 05/15/19 23 05/05/2022 elect alex huerta am, routi ne ECG, 12 leads min No observ ation record ed. tika Not Available 07/2022 11:05:16 07/15/19 23 07/07/2022 home sleep testi ng (PROC ) No observ ation record ed. [email or web address] [address], [place], [address], 07/14/2022 16:22:03 08/25/19 23 08/24/2022 CT, chest , [facility] [address] [place] [address] Phone: Fax: Name: ROB GARCIA Exam Date: : 945 Age 77 Gender : F Access ion: [id number] Physic mercedes: SALTY MORALES Facili ty: [facility] Facili ty HSV: Outpat ient Exam: CT CHEST W/O CT CHEST withou t contra st HISTOR Y: Pulmon clare nodule COMPAR KORTNEY: April 17, 2022. TECHNI QUE: Axial CT withou t IV contra st admini strati on. FINDIN GS:Lac k of IV contra st limits assess ment of the solid organs , medias tinum, and the vascul ature. The heart is enlarg ed. Athero sclero sis is noted. Promin ence of the pulmon clare arteri es again seen, correl ate for pulmon clare artery hypert ension . There is a large hiatal hernia . Elevat ion left hemidi aphrag m noted. No adenop athy was apprec iated. There is eviden ce of calcif ied granul omatou s diseas e. 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 This is essent ially stable in size measur ing 7.5 mm on image 20. No new pulmon clare nodule s are identi fied. Compre ssive atelec tasis noted at the left base. There is no pleura l or perica rdial effusi on. No acute osseou s change s. 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 This is essent ially stable in size measur ing 7.5 mm on image 20. Cardio megaly Promin ence of the pulmon clare arteri es, correl ate for pulmon clare hypert ension . This study was perfor med using automa tanya techni ques to achiev e radiat ion exposu re as low as reason ably achiev able Dictat ed By: DESIRE MELO Transc ribed By: Desire Melo Transc ribed On: 023 2:22 PM Electr onical ly signed by: DESIRE MELO 023 Thank you for referr ROB Bello to [facility]. Legall y authen ticate d by POPE DESIRE Garcia 0 08-24 14:22: 30 CC'ed Logic: Orderi ng Provid er: ANDREW RUBY Attend ing Provid er: ANDREW RUBY Admitt ing Provid er: ANDREW RUBY [facility] [address] [facility], [place], [address], 08/24/2022 14:42:22 Result Notes Documentation Provider Name and Address Organization Details Recorded Time Ct, Chest, W/o Contrast : [facility] [address] [place] [address] Name: ROB GARCIA Exam Date: 08/24/2022 : 1945 Age 77 Gender: F Physician: SALTY MORALES Facility: [facility] Facility HSV: Outpatient Exam: CT CHEST W/O CT CHEST without contrast HISTORY: Pulmonary nodule COMPARISON: April 17, 2022. TECHNIQUE: Axial CT without IV contrast administration. FINDINGS:Lack of IV contrast limits assessment of the solid organs, mediastinum, and the vasculature. The heart is enlarged. Atherosclerosis is noted. Prominence of the pulmonary arteries again seen, correlate for pulmonary artery hypertension. There is a large hiatal hernia. Elevation left hemidiaphragm noted. No adenopathy was appreciated.There is evidence of calcified granulomatous disease. Previously described 8 mm nodular density in the right lower lobe is actually in the posterior right upper lobe. This is essentially stable in size measuring 7.5 mm on image 20. No new pulmonary nodules are identified. Compressive atelectasis noted at the left base. There is no pleural or pericardial effusion. No acute osseous changes. IMPRESSION: Previously described 8 mm nodular density in the right lower lobe is actually in the posterior right upper lobe. This is essentially stable in size measuring 7.5 mm on image 20. Cardiomegaly Prominence of the pulmonary arteries, correlate for pulmonary hypertension. This study was performed using automated techniques to achieve radiation exposure as low as reasonably achievable Dictated By: DESIRE MELO Transcribed By: Desire Melo Transcribed On: 08/24/2022 2:22 PM Electronically signed by: DESIRE MELO 08/24/2022 Thank you for referring ROB GARCIA to [facility]. Legally authenticated by POPE DESIRE Garcia 2022-08-24 14:22:30 CC'ed Logic: Ordering Provider: ANDREW RUBY Attending Provider: ANDREW RUBY Admitting Provider: ANDREW Morales MD [facility] [facility], [place], [address], [facility] & [place] 08/24/2022 14:42:22 Problems Name Problem SNOMED Code Status Onset Date Resolution Date Notes Provider Name and Address Organization Details Recorded Time Peptic ulcer 13354921 Active Leighann Cai null, [place] - [facility] - [facility] & [place] 3 14:25:16 Chronic obstructiv e pulmonary disease 74562241 Active Leigh[place] [facility] [place] & [place] 3 14:25:16 Angina pectoris 102340402 Active Leigh[place] [facility] [place] & [place] 3 14:25:16 Degenerati on of lumbar interverte bral disc 25322059 Active Leighann C[place], [place] - [facility] - [facility] & [place] 3 14:25:16 Myofascial pain 085815049 Active Leigh[place] [facility] [place] & [place] 3 14:25:16 Knee pain Active Leigh[place] [facility] - & [place] 3 14:25:16 Pain in left knee Active Leighann [place] [facility] [place] & [place] 3 14:25:16 Pain of right hip joint 2084819266139 02 Active Leighann [place] [facility] [place] & [place] 3 14:25:16 Disorder of carotid artery 597743257 Active Leighann C[place] - [facility] - [facility] & [place] 3 14:25:16 Chronic pain syndrome 739599135 Active Leigh[place] [facility] [place] & [place] 3 14:25:16 Hypertensi ve disorder 59356294 Active Leigh[place] [facility] [place] & [place] 3 14:25:16 History of carotid endarterec kory 403510222 Active Leighann C[place] [facility] - & [place] 3 14:25:16 Lumbosacra l spondylosi s without myelopathy 90129490 Active Leighann C[place] [facility] [place] & [place] 3 14:25:16 Hyperlipid emia 74773097 Active Leighann [place] & [place] 3 14:25:16 Opioid dependence 55634836 Active Leighann [place] & [place] 3 14:25:16 Chronic pain 31123709 Active Leighann C[place] & [place] 3 14:25:16 Severe persistent asthma 193182610 Active 2022 Salty Morales MD [address], [place] [address] , [place] [facility] - [place] & [place] 3 14:32:32 Dyspnea on exertion 50029139 Active 2022 Salty Morales MD [address], [place] [address] , [place] - [facility] & [place] 3 14:32:41 Chronic hypoxemic respirator y failure 683406093 Active 2022 Salty Morales MD [address], [place] [address] , [place] - [facility] & [place] 3 14:32:54 Obstructiv e sleep apnea syndrome 51304600 Active 2022 Salty Morales MD [address], [place] [address] , [place] - [facility] & [place] 3 14:33:01 Obesity 653268416 Active 2022 Salty Morales MD [address], [place] [address] , [place] [facility] - [place] & [place] 3 14:33:09 Nodule of lung 940046953 Active 2022 Salty Morales MD [address], [place] [id number] , [place] - [facility] & [place] 14:33:42 Problem Notes None recorded. Procedures Surgical History Date Name Laterality Status Provider Name and Address Organization Details Recorded Time 02/08/19 23 Joint Replacement completed Román ARAMBULA Sajan ROBERTS [facility] & [place] 06/01/2022 14:13:02 02/08/18 86 Head or Neck Surgery completed Leighann Moeller NATALIEPUNEET [facility] & [place] 06/09/2022 15:40:42 02/08/18 74 Abdominal Surgery completed Leighann ARAMBULA Sajan ARMANDO [facility] & [place] 06/09/2022 15:40:42 02/08/18 66 Cancer Surgery completed Leighann ROBERTS [facility] & [place] 06/09/2022 15:40:42 Imaging Results None recorded. Procedure Notes None recorded. Medical Equipment None Reported. Allergies No known drug allergies Medications Name Sig Start Date Stop Date Status Note LastModified by Organization Details LastModified Time furosemide 40 mg tablet TAKE 1 TABLET BY MOUTH EVERY MORNING active Not Available Not Available No t Available nystatin 100,000 unit/mL oral suspension SWISH AND SWALLOW 5 ML BY MOUTH FOUR TIMES DAILY active Not Available Not Available No t Available trazodone 50 mg tablet 05/05 completed Not Available Not Available Not Available atenolol 100 mg tablet 05/05 completed Not Available Not Available Not Available fluconazole 200 mg tablet active Not Available Not Available Not Available donepezil 10 mg tablet TAKE 1 TABLET BY MOUTH DAILY active Not Available Not Available No t Available famotidine 40 mg tablet TAKE 1 TABLET BY MOUTH DAILY active Not Available Not Available No t Available prednisone 20 mg tablet TAKE 1 TABLET BY MOUTH ONCE DAILY IN AM WITH FOOD 09/05 completed Not Available Not Available Not Available alendronate 70 mg tablet TAKE 1 TABLET BY MOUTH 1 TIME EVERY WEEK active Not Available Not Available No t Available atenolol 25 mg tablet TAKE 1 TABLET BY MOUTH DAILY active Not Available Not Available No t Available valsartan 80 mg tablet TAKE 1 TABLET BY MOUTH DAILY active Not Available Not Available No t Available amlodipine 2.5 mg tablet Take 1 {tablet} by oral route. 05/05 completed Not Available Not Available Not Available acetaminoph en 300 mg-codeine 30 mg tablet Take 1 {tablet_a s_needed} 3 times a day by oral route. 05/05 completed Not Available Not Available Not Available amlodipine 5 mg tablet TAKE 1 TABLET BY MOUTH DAILY active Not Available Not Available No t Available ciprofloxac in 500 mg tablet TAKE 1 TABLET BY MOUTH TWICE DAILY FOR 7 DAYS active Not Available Not Available No t Available omeprazole 40 mg capsule,del ayed release TAKE 1 CAPSULE BY MOUTH DAILY active Not Available Not Available No t Available doxycycline monohydrate 100 mg tablet TAKE 1 TABLET BY MOUTH TWICE DAILY FOR 7 DAYS active Not Available Not Available No t Available terbinafine HCl 250 mg tablet TAKE 1 TABLET BY MOUTH DAILY active Not Available Not Available No t Available trazodone 100 mg tablet 09/05 completed Not Available Not Available Not Available trazodone 150 mg tablet TAKE 1 TABLET BY MOUTH EVERY NIGHT AT BEDTIME active Not Available Not Available No t Available buspirone 30 mg tablet TAKE 1 TABLET BY MOUTH 3 TIMES A DAY active Not Available Not Available No t Available levothyroxi ne 125 mcg tablet TAKE 1 TABLET BY MOUTH DAILY active Not Available Not Available No t Available aspirin 81 mg chewable tablet 1 {tablet} by oral route. active Not Available Not Available No t Available hydroxyzine HCl 25 mg tablet TAKE 1/2 TO 1 TABLET BY MOUTH EVERY 8 HOURS NEEDED FOR ANXIETY active Not Available Not Available No t Available acetaminoph en 300 mg-codeine 60 mg tablet Take 1 {tablet_a s_needed} 3 times a day by oral route. 05/05 completed Not Available Not Available Not Available pravastatin 20 mg tablet TAKE 1 TABLET BY MOUTH EVERY EVENING active Not Available Not Available No t Available mupirocin 2 % topical ointment 05/05 completed Not Available Not Available Not Available furosemide 20 mg tablet Take 1 {tablet} by oral route. 05/05 completed Not Available Not Available Not Available methylpredn isolone 4 mg tablets in a dose pack FOLLOW PACKAGE DIRECTION S active Not Available Not Available No t Available albuterol sulfate HFA 90 mcg/actuati on aerosol inhaler INHALE 1 TO 2 PUFFS BY MOUTH EVERY 4 TO 6 HOURS NEEDED active Not Available Not Available No t Available Vitamin D2 1,250 mcg (50,000 unit) capsule active Not Available Not Available Not Available losartan 50 mg-hydrochl orothiazide 12.5 mg tablet 05/29 completed Not Available Not Available Not Available hydroxyzine HCl 10 mg tablet 05/05 completed Not Available Not Available Not Available losartan 100 mg tablet Take 1 {tablet} by oral route. 05/05 completed Not Available Not Available Not Available atenolol 50 mg tablet 1 {tablet} by oral route. 06/08 completed Not Available Not Available Not Available potassium chloride ER 10 mEq tablet,exte nded release(par t/cryst) 05/05 completed Not Available Not Available Not Available memantine 5 mg tablet TAKE 1 TABLET BY MOUTH TWICE DAILY active Not Available Not Available No t Available duloxetine 60 mg capsule,del ayed release TAKE 1 CAPSULE BY MOUTH DAILY active Not Available Not Available No t Available levothyroxi ne 125 mcg capsule 05/05 completed Not Available Not Available Not Available Stahist AD 25 mg-60 mg tablet TAKE 1/2 TO 1 TABLET BY MOUTH EVERY 8 HOURS NEEDED active Not Available Not Available No t Available Entresto 49 mg-51 mg tablet TAKE 1 TABLET BY MOUTH TWICE DAILY active Not Available Not Available No t Available Entresto 24 mg-26 mg tablet 08/05 completed Not Available Not Available Not Available Trelegy Ellipta 200 mcg-62.5 mcg-25 mcg powder for inhalation INHALE 1 PUFF BY MOUTH DAILY active Not Available Not Available No t Available Vitals Date Recorded Body height Body mass index (BMI) Body weight Oxygen saturation Oxygen saturation in Arterial blood by Pulse oximetry Inhaled oxygen flow rate Heart rate Systolic blood pressure Diastolic blood pressure Provider Name and Address Organization Details Last Updated DateTime 3 167.64 cm 40.8 kg/m2 725126. 87 g 97 % 97 % 4 L/min 64 /min 150 mm[Hg] 68 mm[Hg] Leighann ARAMBULA - [facility] 3 14:24:12 Date Recorded Body height Body mass index (BMI) Body weight Body temperature Oxygen saturation Oxygen saturation in Arterial blood by Pulse oximetry Inhaled oxygen flow rate Heart rate Systolic blood pressure Diastolic blood pressure Provider Name and Address Organization Details Last Updated DateTime 3 167.64 cm 39.5 kg/m2 863627. 33 g 97.3 [degF] 96 % 96 % 3 L/min 76 /min 127 mm[Hg] 71 mm[Hg] Román perales [place] - [facility] & [place] 3 14:17:23 Date Recorded Body height Body mass index (BMI) Body weight Oxygen saturation Oxygen saturation in Arterial blood by Pulse oximetry Inhaled oxygen flow rate Heart rate Systolic blood pressure Diastolic blood pressure Provider Name and Address Organization Details Last Updated DateTime 3 167.64 cm 42.6 kg/m2 710106. 39 g 97 % 97 % 2 L/min 64 /min 108 mm[Hg] 64 mm[Hg] Leigahnn Trell TYESHA - [facility] & [place] 3 15:40:12 Date Recorded Body height Body mass index (BMI) Body weight Body temperature Oxygen saturation Oxygen saturation in Arterial blood by Pulse oximetry Heart rate Systolic blood pressure Diastolic blood pressure Provider Name and Address Organization Details Last Updated DateTime 3 167.64 cm 39.1 kg/m2 828129. 35 g 97.1 [degF] 95 % 95 % 60 /min 95 mm[Hg] 60 mm[Hg] Román perales TYESHA - [facility] & [place] 3 14:21:50 Date Recorded Body height Body mass index (BMI) Body weight Oxygen saturation Oxygen saturation in Arterial blood by Pulse oximetry Heart rate Systolic blood pressure Diastolic blood pressure Provider Name and Address Organization Details Last Updated DateTime 3 167.64 cm 39.4 kg/m2 494088. 54 g 95 % 95 % 71 /min 116 mm[Hg] 82 mm[Hg] Jasmin Castellanosl TYESHA - [facility] & [place] 3 14:12:07 Social History Question Answer Notes LastModified by Organizat ion Details LastModified Time Tobacco Smoking Status Never Smoker Leighann Trell [place], [place] - [facility] - [place] & [place] 05/05/2022 14:29:41 Are You Blind Or Do You Have Difficulty Seeing? Yes [email or web address] Information not available 06/01/2022 What Is Your Level Of Caffeine Consumption? None Information not available 09/08/2022 Has Tobacco Cessation Counseling Been Provided? No Information not available 09/08/2022 How Many Days In The Past Year Have You Consumed 4 Or More Drinks? 2 Information not available 09/08/2022 Sex: Unknown Functional Status Question Answer Note LastModified by Organizat ion Details LastModified Time Do you use any illicit or recreational drugs? No [email or web address] Information not available 05/05/2022 Do you or have you ever used any other forms of tobacco or nicotine? No Information not available 09/08/2022 What is your level of alcohol consumption? Occasional [email or web address] Information not available 05/05/2022 What is your exercise level? Moderate [email or web address] Information not available 06/01/2022 Mental Status None recorded. Family History Relationship Description Onset Age of this Age Resolved Age Notes LastModified by Organization Details LastModified Time Father Heart failure [email or web address] Not available 2022 14:01:25 Father Hypertensive disorder pt. added direct ly (06/08) [email or web address] Not available 06/08/2022 12:58:10 Mother Cardiomegaly [email or web address] Not availa ble 09/08/2022 14:01:25 Mother Rheumatic heart disease [email or web address] Not available 2022 14:01:25 Mother Heart disease pt. added direct ly (06/08) [email or web address] Not available 06/08/2022 12:56:45 Sister Blood coagulation disorder pt. added direct ly (06/08) [email or web address] Not available 06/08/2022 12:57:46 Sister Chronic obstructive pulmonary disease pt. added direct ly (06/08) [email or web address] Not available 06/08/2022 12:59:41 Son Headache pt. added direct ly (06/08) [email or web address] Not available 06/08/2022 12:59:26 Unspecified Relation Disorder of thyroid gland pt. added direct ly (06/08) [email or web address] Not available 06/08/2022 13:01:15 Medical History Condition Response COPD Y Spine Problems Y Obesity Y Vision or Eye Problems Y Arthritis Y High Cholesterol Y Headaches Y Ear or Hearing Problems Y Thyroid Problems Y Osteoporosis/Osteopenia Y Congestive Heart Failure (CHF) Y Back Problems Y Reflux/GERD Y Hypertension Y Gynecological History Statement/Question Response Current Control Method N/A Sexually Active? N Obstetrics History GPAL:G 0 P 0 0 0 0 Past Encounters Encounter ID Performer Location Encounter Start Date Encounter Closed Date Diagnosis/Indication Diagnosis SNOMED-CT Code Diagnosis ICD10 Code Diagnosis Note [id number] JOSELINE WARD [facility] [address] [place] [address] 05/05/2022 13:01:28 05/05/2022 16:16:51 Chronic diastolic heart failure 684827616 I50.32 PCP started Entersto High troponin I level 44 4698845 R77.8 mildly elevated troponin at 149 in the hospital Edema of l ower extremity 799102775 R60.0 on Lasix 40mg [id number] Salty Morales MD [facility] [address] [facility] [place] [address] 06/01/2022 14:08:11 06/01/2022 14:31:21 Severe persistent asthma 000832457 J45.50 Spirometry done in the office today showed evidence of obstructio n with decrease in FEV1 down to 36% predicted and that was reviewed and discussed with the patient and her family. Patient instructed to continue with the use of Trelegy daily. Patient use her Paz on a p.r.n. basis. Will obtain labs done in the hospital recently and adjust treatment if indicated. Dyspnea on exertion 6084 5006 R06.09 Patient recommende d to exercise as tolerated and use her Paz on a p.r.n. basis and more liberally. Chronic hy poxemic respiratory failure 683710298 J96.11 Patient instructed to continue with the use of oxygen and titrate to maintain O2 saturation above 90%. Obstructiv e sleep apnea syndrome 41386976 G47.33 Given patient's symptoms and possible pulmonary hypertensi on then will arrange for her to have an in-home sleep study and treat according to the results if indicated. Obesity 633056654 E66.9 Patient recommende d to diet and exercise in order to lose weight. Nodule of lung 741715989 R91.[address] of the chest in 3 months to assure stability/ resolution of the nodule. Patient instructed to call if there is any new symptoms. [id number] JOSELINE WARD [facility] [address] [facility] [address] [place] [address] 06/09/2022 14:54:30 06/09/2022 15:55:51 Chronic diastolic heart failure 388254646 I50.32 PCP started Enterstolo w sodium diet High troponin I level 44 8447516 R77.8 mildly elevated troponin at 149 in the hospital 04/24/22 secondary to hypoxia. Edema of l ower extremity 413780434 R60.0 on Lasix 40mglow sodium diet [id number] Salty Morales MD [facility] [address] [place] [address] 08/06/2022 14:11:23 08/06/2022 14:26:36 Severe persistent asthma 972240558 J45.50 Patient instructed to continue with the use of Trelegy daily.Santa ent use her Paz on a p.r.n. basis. Dyspnea on exertion 6084 5006 R06.09 Patient recommende d to exercise as tolerated and use her Paz on a p.r.n. basis and more liberally. Chronic hy poxemic respiratory failure 537440409 J96.11 Patient instructed to continue with the use of oxygen and titrate to maintain O2 saturation above 90%. Obstructiv e sleep apnea syndrome 32982673 G47.33 Results of in-home sleep study showed evidence of mild DO with AHI of 12.1 and that was discussed with the patient and her family and will arrange for her to have an auto Pap. Patient recommende d to comply with the cleaning instructio ns and supply changes. Patient recommende d to try to lose weight more actively. Obesity 884675123 E66.9 Patient recommende d to diet and exercise in order to lose weight. Nodule of lung 805247360 R91.1 Patient did not had her CT of the chest done so will send a new order to follow-up on the lung nodules. Patient instructed to call if there is any new symptoms. [id number] JOSELINE WARD [facility] [address] [place] [address] 09/08/2022 14:01:07 09/08/2022 14:46:45 Chronic diastolic heart failure 043267012 I50.32 PCP started Entersto High troponin I level 44 2479554 R77.8 mildly elevated troponin at 149 in the hospital Edema of l ower extremity 925085000 R60.0 on Lasix 40mg Health Concerns Section Related Observation LastModified by Organization Detai ls LastModified Time None Recorded Concern Status LastModified by Organization Details LastModified Time None Recorded Advance Directives Directive None Recorded Payers Insurance Date Sequence Insurance Name Policy Number Policy Richey Covered Member ID Richey Member ID Guarantor Name 12/14/2023 1 [place] (MEDICARE REPLACEMENT HMO) [id number] Rob F Hope [id number] Rob F Hope 12/14/2023 1 [place] Rob K Hope [id number] Rob F Hope 12/14/2023 1 [place]PLACEMENT REGIONAL PPO) [id number] Rob K Hope [id number] Rob F Radha 12/14/2023 1 [place] [id number] Rob K Hope [id number] Robreinier Garcia Notes Date Note Type Note Provider Name and Address Organization Details Recorded Time 05/05/2022 text/html Patient is a pleasant 77 year old here as a new patient s/p hospital stay. Patient was noted to have mildly elevated troponin at 149. ECHO while in the hospital showed normal EF with no wall motion abnormalities. Patient has coexisting HTN and hyperlipidemia. She is now on 4LNC and is follow with Dr. Morales. She denies CP, palpitations, or claudication. She has chronic BLE edema and is on Lasix 40mg daily with some improvement. She has now cardiac history. EKG shows SB. ALEX BOSWELL, RADIATION TECHNICIAN-C [address], [place], [address], [facility] - [place] - [place] & [place] 05/05/2022 15:12:18 06/01/2022 text/html Patient presents to the office today for hospital follow-up visit. Patient states that she is almost back to her baseline without significant shortness breath at rest but had some dyspnea on exertion. She is using Trelegy daily but did not use her Paz. She denies fever, chills or diaphoresis. No chest pain, angina or palpitation. No PND or orthopnea. Patient denies wheezing or hemoptysis. Patient denies significant change in her weight or appetite. Patient having excessive daytime sleepiness and snoring at night with witnessed apnea. Salty Morales MD [address], [place], [address] & [place] 06/01/2022 14:35:55 06/09/2022 text/html Patient is a pleasant 77 year old who presents for follow up. Patient was noted to have mildly elevated troponin at 149. Patient has coexisting HTN and hyperlipidemia. She is now on 4LNC and is follow with Dr. Morales. She denies CP, palpitations, or claudication. Stable SOA. She is in a wheelchair unable to walk short distances. She has chronic BLE edema and is on Lasix 40mg daily with some improvement. She has not had her Lasix today because of appointments. Stress test result discussed.nuclear stress 05/30/22 No evidence of myocardial ischemia.Normal calculated EF of 77%. 06/01/22 spirometry FEV1 61% severe obstruction severe restriction 05/05/22 EKG shows SBECHO 04/22/22 normal EF with no wall motion abnormalities. ALEX BOSWELL RADIATION TECHNICIAN-C [address], [place], [address] 06/09/2022 15:58:11 08/06/2022 text/html Patient presents to the office today for follow-up visit. Patient states that she was doing fairly well till recently had cough and congestion and was given steroids for 5 days with improvement in her symptoms. She report improvement in the shortness of breath at rest and with exertion. She is using her Trelegy daily and Paz about once a day. She denies fever, chills or diaphoresis. No chest pain, angina or palpitation. No PND or orthopnea. Patient denies wheezing or hemoptysis. Patient denies significant change in her weight or appetite. Salty Morales MD [address], [place], [address] 08/06/2022 14:30:54 09/08/2022 text/html Patient is a pleasant 77 year old Female here for follow up HTN/ELMER. She states she is feeling overall better. She denies any significant CV complaints.She denies CP, palpitations, or claudication. She has improved BLE edema and is on Lasix 40mg daily. Stress test discussed with patient as described below. She has no significant cardiac history.Past HxPatient was noted to have mildly elevated troponin at 149 secondary to hypoxia In the hospital. She is now on 4LNC and is follow with Dr. Morales. SOA is stable. EKG 05/05/22 shows SB, Rate 57, ME 164ms, QRS 86ms, QT/QTc 438/426 ms. +HTN+HLD+BLEE+DO now on CPAP ECHO 04/22/22 showed normal EF with no wall motion abnormalities. Pharm Nuclear stress 05/30/22 No evidence of myocardial ischemia. Normal calculated EF of 77%. ALEX BOSWELL, RADIATION TECHNICIAN-C [address], [place], [address], [facility] - [facility] - [place] & [place] 09/08/2022 14:50:19 OBGyn Episode No OBEpisode recorded.
--- NOTE | 2024-08-04 13:28 | HMH.EDGENADL ---
Discharge Plan Disposition Patient Disposition: Home, Self-Care Prescriptions Prescriptions: No Action Eliquis 5 mg tablet 5 mg PO BID Qty: 180 2RF valsartan 40 mg tablet 40 mg PO BID Qty: 60 5RF trazodone 150 mg tablet 150 mg PO HS docusate sodium [Stool Softener] 100 mg capsule 100 mg PO BID fluticasone propion-salmeterol 250-50 mcg/dose blister with device 1 ea INHALATION BID amiodarone 200 mg Tablet 400 mg PO BID 30 Days Qty: 120 0RF clopidogrel 75 mg Tablet 75 mg PO DAILY 30 Days Qty: 30 0RF aspirin 81 mg Tablet,Delayed Release (Dr/Ec) 81 mg PO DAILY 30 Days Qty: 30 0RF dapagliflozin propanediol [Farxiga] 10 mg Tablet 10 mg PO DAILY 30 Days Qty: 30 0RF prednisone 20 mg Tablet 40 mg PO DAILY 3 Days Qty: 6 0RF levofloxacin 750 mg tablet 750 mg PO DAILY 3 Days Qty: 3 0RF furosemide 40 mg tablet 20 mg PO DAILY 30 Days Qty: 0 0RF donepezil 10 mg tablet 10 mg PO HS levothyroxine 125 mcg tablet 125 mcg PO DAILYDM duloxetine 60 mg capsule,delayed release(DR/EC) 60 mg PO DAILY memantine 5 mg tablet 5 mg PO BID alendronate 70 mg tablet 70 mg PO WEEKLY buspirone 30 mg tablet 30 mg PO BID albuterol sulfate [Ventolin HFA] 90 mcg/actuation HFA aerosol inhaler 2 puff inhalation Q4HP PRN (Reason: shortness of breath or wheezing) atorvastatin 40 mg Tablet 40 mg PO HS 30 Days Qty: 30 0RF Referrals Follow up/Referrals: Provider,Referral, MD [Primary Care Provider, Medical] - See instructions Clinical Impressions Clinical Impression: Carbon dioxide narcosis, Hypercapnic acidosis, Chronic tremor Print Language Print Language: Liberian Discharge ED Provider: Reyes Wagenr General Adult HPI General Chief complaint: Weakness Stated complaint: fall, weakness Time Seen by Provider: 08/04/24 13:11 Mode of Arrival: Ambulatory Source of Information: Patient Description of Symptoms (Recalled from ER Triage Doc. by RN): Patient states about 1100 this morning she missed a step and fell and injured her right shoulder. Patient states she has previously injured it before. Patient states that she is also having pain in left hip but does not think that is related to her fall. Patient states she took 800 mg of Ibuprofen at 1245. History of Present Illness HPI narrative: Patient is 79-year-old female with multiple comorbidities including hypertension, coronary artery disease, heart failure with preserved ejection fraction hyperlipidemia, chronic tremors who presents emergency department for evaluation of weakness. Patient was rising from a seated position tried to go to the bathroom when she was lowered to the floor because she felt as if she was going to fall and her knees gave out. She normally gets around with a walker. She does not have any acute complaints at this time but per report family has noticed worsening tremulousness as of late although she does have it chronically. No other acute complaints at this time. Please note that above description of symptoms, in this electronic medical record under categorization of recalled from ER triage doctor by RN are reflective of an initial nursing assessment, however, is not reflective of my full history and physical exam that was personally taken and clarified. Consequentially, this preceding description of symptoms, which may include the patient's categorized chief complaint in the EMR, do not reflect my personal clinical impression, and the ultimate description of history of present illness and patient stated complaints should be deferred to this section of the note. Unless stated otherwise or congruent with this section of the note, additional signs, symptoms, or incongruence should be interpreted as inaccurate with my clinical impression. Related Data Home Medications ?Medication ?Instructions ?Recorded ?Confirmed donepezil 10 mg tablet 10 mg PO HS 03/12/23 07/24/24 duloxetine 60 mg capsule,delayed 60 mg PO DAILY 03/12/23 07/24/24 release levothyroxine 125 mcg tablet 125 mcg PO DAILYDM 03/12/23 07/24/24 memantine 5 mg tablet 5 mg PO BID 10/14/23 07/24/24 alendronate 70 mg tablet 70 mg PO WEEKLY 02/12/24 07/24/24 buspirone 30 mg tablet 30 mg PO BID 02/12/24 07/24/24 albuterol sulfate 90 mcg/actuation 2 puff inhalation Q4HP PRN 02/13/24 07/24/24 aerosol inhaler (Ventolin HFA) shortness of breath or wheezing docusate sodium 100 mg capsule 100 mg PO BID 07/10/24 07/24/24 (Stool Softener) fluticasone 250 mcg-salmeterol 50 1 ea inhalation BID 07/10/24 07/24/24 mcg/dose blistr powdr for inhalation trazodone 150 mg tablet 150 mg PO HS 07/10/24 07/24/24 Previous Rx's ?Medication ?Instructions ?Recorded apixaban 5 mg tablet (Eliquis) 5 mg PO BID #180 tabs 11/08/23 atorvastatin 40 mg tablet 40 mg PO HS 30 days #30 tabs 02/15/24 amiodarone 200 mg tablet 400 mg (2 x 200 mg) PO BID 30 days 07/13/24 #120 tabs aspirin 81 mg tablet,delayed 81 mg PO DAILY 30 days #30 tabs 07/13/24 release clopidogrel 75 mg tablet 75 mg PO DAILY 30 days #30 tabs 07/13/24 dapagliflozin propanediol 10 mg 10 mg PO DAILY 30 days #30 tabs 07/13/24 tablet (Farxiga) furosemide 40 mg tablet 20 mg (1/2 x 40 mg) PO DAILY 30 07/13/24 days #0 tabs levofloxacin 750 mg tablet 750 mg PO DAILY 3 days #3 tabs 07/13/24 prednisone 20 mg tablet 40 mg (2 x 20 mg) PO DAILY 3 days 07/13/24 #6 tabs valsartan 40 mg tablet 40 mg PO BID #60 tabs 07/24/24 Allergies Allergy/AdvReac Type Severity Reaction Status Date / Time sulfamethoxazole (From AdvReac Mild Nausea Verified 07/24/24 13:36 Bactrim) trimethoprim (From Bactrim) AdvReac Mild Nausea Verified 07/24/24 13:36 [facility] Disclaimer: The information contained in this section may have been updated after the patient was seen, as this information can be updated by other users. Medical History Acute on chronic respiratory failure with hypoxemia Acute on chronic heart failure with preserved ejection fraction (HFpEF) Depression Anxiety Pulmonary embolism Osteoarthritis Skin cancer SOB (shortness of breath) on exertion Abnormal echocardiogram Hyperlipidemia (HFpEF) heart failure with preserved ejection fraction CAD (coronary artery disease) HTN (hypertension) Heart failure Elevated troponin Chronic respiratory failure with hypoxia History of COPD Second hand smoke exposure Surgical History History of left knee replacement Family History Other No significant family history Social History Smoking Status: Former smoker alcohol intake: never current occupational status: retired Travel in the last 8 weeks?: None Have you lived/traveled outside US in past 30 days?: No Contact w/someone who lives/traveled outside US past 30 days?: No Exposure to someone with infectious disease in past 14 days?: No Do you have a fever (greater than 100.4 F or 38 C)?: No Have you tested positive for COVID-19?: No Exposed to someone with COVID-19 in past 14 days?: No Do you have a sore throat?: No Do you have a cough?: No Do you have any weakness?: No Do you have any diarrhea?: No Are you experiencing any unusual bleeding?: No Do you have any muscle aches/pain?: No Do you have any abdominal pain?: No Are you experiencing loss of taste or smell?: No Other Medical History Have you received the Flu Vaccine for this season: No Have you received the Pneumonia Vaccine: No ROS Obtained: Yes Systems reviewed as appropriate & no additional complaints except as documented Physical Exam General General appearance: alert and in no apparent distress Head Head exam: atraumatic and normocephalic Eye Eye exam: Present PERRL and EOMI ENT ENT exam: Present mucous membranes moist Neck Neck exam: Present normal inspection Chest Chest inspection: Present normal inspection and symmetric chest wall rise Respiratory Respiratory exam: Present normal lung sounds bilaterally; Absent respiratory distress, wheezes or stridor Cardiovascular Cardiovascular exam: Present regular rate and normal rhythm Abdominal Exam Abdominal exam: Present soft; Absent tenderness Extremities Exam Extremities exam: Present normal inspection Neurological Exam Neurological exam: Present alert and CN II-XII intact Psychiatric Psychiatric exam: Present normal affect Skin Skin exam: Present warm and dry Medical Decision Making Medical Records Screening: Per USPSTF and CDC recommendations, given the prevalence of disease in our region, it is our hospital?s policy to screen for HIV and viral Hepatitis for all patients aged 18 and over and those with ongoing risk factors. [place] Inquiry Pt receiving controlled substance: No Vital Signs: 08/04/24 13:27 08/04/24 13:31 08/04/24 14:02 Temperature 97.9 F Temperature Source Oral Pulse Rate 56 L Pulse Rate [Right Brachial] 61 Respiratory Rate 19 21 25 H Blood Pressure 144/121 H 126/63 Blood Pressure [Right Arm] 142/52 H Blood Pressure Mean 84 Blood Pressure Mean [Right Arm] 82 02 Sat by Pulse Oximetry 97 95 97 Oxygen Delivery Method Nasal Cannula Nasal Cannula BiPAP Oxygen Flow Rate (LPM) 3 3 Lab Data Lab Results 08/04/24 13:11: WBC 6.1, RBC 3.65 L, Hgb 9.8 L, Hct 35.2 L, MCV 96.4, MCH 26.8 L, MCHC 27.8 L, RDW 17.1, Plt Count 175, MPV 10.4, Neut % (Auto) 56.0, Lymph % (Auto) 29.3, [place] % (Auto) 9.3, Eos % (Auto) 4.3, Baso % (Auto) 0.8, Neut # (Auto) 3.4, Lymph # (Auto) 1.8, [place] # (Auto) 0.6, Eos # (Auto) 0.3, Baso # (Auto) 0.1, Sodium 136, Potassium 4.5, Chloride 91 L, Carbon Dioxide 43 H*, Anion Gap 6.5, BUN 10, Creatinine 0.80, Estimated Creat Clear 37, Estimated GFR 69, Est GFR ( Amer) 84, Glucose 106 H, Calcium 8.8, Magnesium 2.3, Total Bilirubin 0.2, AST 23, ALT 12, Alkaline Phosphatase 75, Troponin I 0.02, NT-Pro-B Natriuret Pep 1090 H, Total Protein 6.1 L, Albumin 3.3 L, Globulin 2.8, Albumin/Globulin Ratio 1.2 08/04/24 13:33: VBG pH 7.17 L, VBG pCO2 93.0 H, VBG pO2 54.8 H, VBG HCO3 32.9 H, VBG Total CO2 35.8 H, VBG O2 Saturation 87.0 H, VBG Base Excess 4.4 H, VBG Lactic Acid 1.0 08/04/24 13:11 08/04/24 13:11 Orders (Tests/Meds): ORDERS Category Date Time Status CT head/brain wo con Stat Cat Scan 08/04/24 13:26 Stop Req BNP [NT Pro Brain Natriuretic Pep.] Stat Lab 08/04/24 13:11 Completed CBC w/Auto Diff [Complete Blood Count Auto Diff] Stat Lab 08/04/24 13:11 Completed CMP [Comprehensive Metabolic Panel] Stat Lab 08/04/24 13:11 Completed MG [Magnesium] Stat Lab 08/04/24 13:11 Completed Trop I [Troponin I] Stat Lab 08/04/24 13:11 Completed Troponin I Q3H Lab 08/04/24 16:45 Ordered Troponin I Q3H Lab 08/04/24 19:45 Ordered UA [Urinalysis and Microscopic] Stat Lab 08/04/24 13:27 Ordered VBG [Venous Blood Gas] Stat RT 08/04/24 13:33 Completed EKG Request [ECG Request] Stat Y 08/04/24 13:32 Ordered Medical Decision Narrative: In summary patient is a 79-year-old female past medical history described above who presents emergency department for evaluation of tremulousness and evaluation after a fall. Patient did not truly fall she was lowered to the ground and has no concerns for trauma per her report and on my exam. She is tremulous and weak but this is her new baseline although it appears it may be slightly worse than normal per her report. Workup will be conducted with hematologic labs noncontrasted EKG troponin urinalysis. Initial interventions were considered but she appears largely euvolemic and may be hypervolemic so crystalloid resuscitation will be deferred. She does have waxing waning levels of consciousness which is difficult for me to ascertain if it is her baseline or not. Upon resulting of VBG she has significant hypercarbic acidosis for which I suspect she has CO2 narcosis contributing to her symptoms and will place patient on moderate BiPAP settings. Initial workup reviewed by me, no significant leukocytosis, chronic nontransfusable anemia, VBG has pure hypercarbic acidosis which explains patient's waxing and waning mental status I suspect she has CO2 narcosis. Given that she does not have any history of trauma hitting her head and she has an explainable alternative explanation we will place her on BiPAP and cancel the CT scan for now. BNP elevated but improved from prior. Chest x-ray persistent left opacity given history of heart failure I suspect this is a pleural effusion she also does not have any cough or other infectious symptoms is afebrile without a white count and may benefit from definitive imaging in the future however the case discussed with hospital medicine regarding management and patient be admitted to their service for continued evaluation at this time. Critical Care Critical Care Time Critical Care Time: Yes Attestation: On 08/04/24, the high probability of a clinically significant, sudden or life threatening deterioration of the following system(s) required my full and direct attention, intervention and personal management. The time I documented below is in addition to time spent performing reported procedures but includes the following listed in this critical care notation. Total Time Total Critical Care Time: 40
[2024-08-04 13:30] LABS: Hematocrit 35.2 % (37.0-47.0); Hemoglobin 9.8 g/dL (12.2-16.2); Immature Granulocytes % 0.3 %; Mean Corpuscular HGB Conc 27.8 g/dL (31.8-35.4); Mean Corpuscular Hemoglobin 26.8 pg (27.0-31.2); Mean Corpuscular Volume 96.4 fl (81-99); Nucleated Red Blood Cells % 0 %; Platelet Count 175 K/mm3 (142-424); Red Blood Count 3.65 M/mm3 (4.20-5.40); Red Cell Distribution Width-SD 60.1 fL; White Blood Count 6.1 K/mm3 (4.8-10.8)
[2024-08-04 13:32] LABS: Albumin Level 3.3 g/dl (3.5-5.0); Chloride 91 mmol/L (98-107); Potassium 4.5 mmoL/L (3.5-5.1); Sodium 136 mmol/L (136-145)
[2024-08-04 13:33] LABS: Lactate Venous 1.0 mmol/L (0.4-2.0); VBG HCO3 32.9 mmol/L (23-30); VBG PO2 54.8 mmol/L (28-40)
[2024-08-04 13:34] LABS: VBG PH 7.17 mmol/L (7.31-7.41)
[2024-08-04 13:34] LABS: Blood Urea Nitrogen 10 mg/dl (7-17); Creatinine Clearance Estimated 37 mL/min (50-200); Creatinine,Serum 0.80 mg/dl (0.52-1.04); Estimated Glomerular Filt Rate 69 ml/min (>60); GFR (African American) 84 ML/MIN (>60)
[2024-08-04 13:35] LABS: Alanine Aminotransferase 12 U/L (12-78); Albumin/Globulin Ratio 1.2 (1.1-1.8); Alkaline Phosphatase 75 U/L (38-126); Aspartate Amino Transferase 23 U/L (14-36); Bilirubin,Total 0.2 mg/dl (0.2-1.3); Calcium 8.8 mg/dl (8.4-10.2); Globulin 2.8 g/dL (1.3-3.2); Glucose 106 mg/dl (74-100); Magnesium 2.3 mg/dl (1.6-2.3); Total Protein,Serum 6.1 g/dl (6.3-8.2)
[2024-08-04 13:35] LABS: VBG PCO2 93.0 mmol/L (35-51)
[2024-08-04 13:42] LABS: Anion Gap 6.5 mEq/L (5-15); Carbon Dioxide 43 mmol/L (22.0-30.0)
--- NOTE | 2024-08-04 13:44 | ECG_ITS ---
APPROVED REPORT Exam: Resting ECG HR:59 bpm ECG Measurements Heart Rate 59 AXES CO 201 P 82 QRSd 110 QRS 85 QT 452 T 50 QTc 452 Conclusion SINUS BRADYCARDIA INCOMPLETE RIGHT BUNDLE BRANCH BLOCK [90+ ms QRS DURATION, TERMINAL R IN V1/V2, 40+ ms S IN I/aVL/V4/V5/V6] NONSPECIFIC T-WAVE ABNORMALITY BORDERLINE ECG UNCONFIRMED REPORT Electronically signed by : JESSY REED, 08/05/2024 06:34:45
[2024-08-04 13:55] LABS: Troponin I 0.02 ng/ml (0.00-0.034)
--- NOTE | 2024-08-04 13:56 | PC.NURSE ---
purewick has been placed
[2024-08-04 14:00] LABS: NT Pro Brain Natriuretic Pep. 1090 pg/mL (0-450)
--- OUTSIDE RECORDS SUMMARY | 2024-08-04 14:20 | XMS_ITS | CCD ---
Author Organization Unknown Care Team Providers Care Telephone Claims Representative Name Role Phone Non Engaged, [employer] Primary Care Provider Unav ailable Unavailable Chronic Care Management Unavaila ble Summary Purpose DataExchange Insurance Providers Payer name Policy type / Coverage type Covered constitution party ID Effective Begin Date Effective End Date [facility] [id number] Unknown Unknown Family History Family History data not found Medication Administered No Medication Administered data Reason For Visit No Reason For Visit data Medical Equipment No Medical Equipment data Advance Directives No Advance Directive data
--- OUTSIDE RECORDS SUMMARY | 2024-08-04 14:20 | XMS_ITS | CCD ---
Author Organization Unknown Care Team Providers Care Breadman Name Role Phone Non Engaged, [employer] Primary Care Provider Unav ailable Unavailable Chronic Care Management Unavaila ble Summary Purpose DataExchange Insurance Providers Payer name Policy type / Coverage type Covered alliance party ID Effective Begin Date Effective End Date [facility] [id number] Unknown Unknown Family History Family History data not found Medication Administered No Medication Administered data Reason For Visit No Reason For Visit data Medical Equipment No Medical Equipment data Advance Directives No Advance Directive data
--- NOTE | 2024-08-04 14:38 | PC.NURSE ---
Dr Wagner is on phone with Dr Gan at this time
--- NOTE | 2024-08-04 14:47 | PC.NURSE ---
casting house worker notified of bed assignment
--- NOTE | 2024-08-04 14:53 | XR_ITS ---
FINAL REPORT CLINICAL HISTORY: Shortness of breath COMPARISON: 07/12/2024 FINDINGS: A single frontal view of the chest was obtained. There is increased density in the left lung base, probably representing atelectasis and left pleural effusion. The right lung is clear. There is no pneumothorax. Mediastinum is unremarkable. Heart size is enlarged. IMPRESSION: Left basilar density compatible with atelectasis or pneumonia with effusion. Reviewed, Interpreted and Dictated by Bebo Ahmadi MD Transcribed by Omayra Pabon Authenticated and [facility]
--- NOTE | 2024-08-04 14:55 | PC.NURSE ---
PT ADMITTED, ROOM 266, ALL STAFF NOTIFIED
[2024-08-04 14:58] LABS: Microscopic, Urine URINE MICROSCOPIC (MICROSCOPIC)
[2024-08-04 15:01] LABS: Bilirubin,Urine Negative (Negative); Color,Urine YELLOW (Yellow); Glucose,Urine (UA) 3+ (Negative); Ketones,Urine Negative (Negative); Leukocyte Esterase,Urine Negative (Negative); PH,Urine 6.0 (5.0-8.5); Protein,Urine Negative (Negative); Specific Gravity, Urine 1.020 (1.005-1.030); Urobilinogen,Urine 1.0 EU/dl (0.2)
[2024-08-04 15:18] LABS: Bacteria,Urine 3+ /lpf; Calcium Oxalate Crystals,Urine 1+ /lpf; Squamous Epithelial Cell,Urine 20-50 #/hpf (0-5)
[2024-08-04 15:34] LABS: Lactate Venous 0.6 mmol/L (0.4-2.0); VBG HCO3 34.3 mmol/L (23-30); VBG PH 7.24 mmol/L (7.31-7.41); VBG PO2 37.4 mmol/L (28-40)
--- NOTE | 2024-08-04 15:34 | PC.NURSE ---
patient arrived to ICU in room 266 via stretcher with RN @[id number]
--- NOTE | 2024-08-04 15:35 | EXP.HP ---
History of Present Illness *Admission Date: 08/04/24 *Reason for visit:: weakness, confusion, dyspnea *History of present illness: Ms. Garcia is an 79-year-old female with history of chronic hypoxemic respiratory failure, COPD, hypertension, HFpEF, obesity, tremors. She presented with confusion and worsening shortness of breath over the past day.. Family is at bedside and helps answer questions. On arrival to the ED, patient hypoxic on initial presentation. Blood gas showed CO2 greater than 90 on VBG with pH of 7.2. Initiated on BiPAP. Chest imaging showing pulmonary edema bilaterally with elevated BNP. Medicine consulted for admission and further management of COPD exacerbation and acute on chronic HFpEF along with acute on chronic hypoxemic and hypercapnic respiratory failure Evaluation after arriving to the ICU, patient is alert and oriented x 2. History supplemented by family at bedside. Tolerating BiPAP, pulling volumes of 3-400. States she is feeling hungry. Explained that she cannot eat while wearing BiPAP. Also has concern for UTI. Labs showed normal white count 6.1. Kidney function at baseline with creatinine 0.8, BUN 10. BNP elevated above thousand. Denies chest pain, vomiting. Is complaining of back pain however. [facility] Disclaimer: The information contained in this section may have been updated after the patient was seen, as this information can be updated by other users. Medical History Acute on chronic respiratory failure with hypoxia and hypercapnia Acute on chronic respiratory failure with hypoxemia Acute on chronic heart failure with preserved ejection fraction (HFpEF) Depression Anxiety Pulmonary embolism Osteoarthritis Skin cancer SOB (shortness of breath) on exertion Abnormal echocardiogram Hyperlipidemia (HFpEF) heart failure with preserved ejection fraction CAD (coronary artery disease) HTN (hypertension) Heart failure Elevated troponin Chronic respiratory failure with hypoxia History of COPD Second hand smoke exposure Surgical History History of left knee replacement Family History Other No significant family history Social History Smoking Status: Former smoker alcohol intake: never current occupational status: retired Travel in the last 8 weeks?: None Have you lived/traveled outside US in past 30 days?: No Contact w/someone who lives/traveled outside US past 30 days?: No Exposure to someone with infectious disease in past 14 days?: No Do you have a fever (greater than 100.4 F or 38 C)?: No Have you tested positive for COVID-19?: No Exposed to someone with COVID-19 in past 14 days?: No Do you have a sore throat?: No Do you have a cough?: No Do you have any weakness?: No Do you have any diarrhea?: No Are you experiencing any unusual bleeding?: No Do you have any muscle aches/pain?: No Do you have any abdominal pain?: No Are you experiencing loss of taste or smell?: No Other Medical History Have you received the Flu Vaccine for this season: No Have you received the Pneumonia Vaccine: No Review of Systems Review of Systems Review of systems (narrative): 14 point review of systems performed, pertinent positives and negatives as per HPI Meds Home Medications and Allergies Home Medications ?Medication ?Instructions ?Recorded ?Confirmed ?Type donepezil 10 mg tablet 10 mg PO HS 03/12/23 08/04/24 History duloxetine 60 mg capsule,delayed 60 mg PO DAILY 03/12/23 08/04/24 History release levothyroxine 125 mcg tablet 125 mcg PO DAILYDM 03/12/23 08/04/24 History memantine 5 mg tablet 5 mg PO BID 10/14/23 08/04/24 History apixaban 5 mg tablet (Eliquis) 5 mg PO BID #180 tabs 11/08/23 08/04/24 Rx alendronate 70 mg tablet 70 mg PO WEEKLY 02/12/24 08/04/24 History buspirone 30 mg tablet 30 mg PO BID 02/12/24 08/04/24 History albuterol sulfate 90 mcg/actuation 2 puff inhalation Q4HP PRN 02/13/24 08/04/24 History aerosol inhaler (Ventolin HFA) shortness of breath or wheezing atorvastatin 40 mg tablet 40 mg PO HS 30 days #30 tabs 02/15/24 08/04/24 Rx docusate sodium 100 mg capsule 100 mg PO BID 07/10/24 08/04/24 History (Stool Softener) fluticasone 250 mcg-salmeterol 50 1 ea inhalation BID 07/10/24 08/04/24 History mcg/dose blistr powdr for inhalation trazodone 150 mg tablet 150 mg PO HS 07/10/24 08/04/24 History amiodarone 200 mg tablet 400 mg (2 x 200 mg) PO BID 30 days 07/13/24 08/04/24 Rx #120 tabs aspirin 81 mg tablet,delayed 81 mg PO DAILY 30 days #30 tabs 07/13/24 08/04/24 Rx release clopidogrel 75 mg tablet 75 mg PO DAILY 30 days #30 tabs 07/13/24 08/04/24 Rx dapagliflozin propanediol 10 mg 10 mg PO DAILY 30 days #30 tabs 07/13/24 08/04/24 Rx tablet (Farxiga) furosemide 40 mg tablet 20 mg (1/2 x 40 mg) PO DAILY 30 07/13/24 08/04/24 Rx days #0 tabs valsartan 40 mg tablet 40 mg PO BID #60 tabs 07/24/24 08/04/24 Rx guaifenesin 600 mg tablet, 600 - 1,200 mg PO BID 08/04/24 08/04/24 History extended release 12 hr hydroxyzine HCl 50 mg tablet 25 mg PO Q6HP PRN Anxiety 08/04/24 08/04/24 History sacubitril 49 mg-valsartan 51 mg 1 tab PO BID 08/04/24 08/04/24 History tablet (Entresto) New Prescriptions to Start Prescriptions: Allergies Allergy/AdvReac Type Severity Reaction Status Date / Time sulfamethoxazole (From AdvReac Mild Nausea Verified 07/24/24 13:36 Bactrim) trimethoprim (From Bactrim) AdvReac Mild Nausea Verified 07/24/24 13:36 Exam Data for Last 24 hours Vital signs and Labs for Last 24 Hours: Temp Pulse Resp BP Pulse Ox O2 Del Method O2 Flow Rate 97.8 F 53 L 15 90/41 L 99 BiPAP 3 08/04/24 15:20 08/04/24 15:20 08/04/24 15:20 08/04/24 15:20 08/04/24 15:14 08/04/24 15:20 08/04/24 13:31 FiO2 35 08/04/24 14:10 Laboratory Results - last 24 hr 08/04/24 13:11: WBC 6.1, RBC 3.65 L, Hgb 9.8 L, Hct 35.2 L, MCV 96.4, MCH 26.8 L, MCHC 27.8 L, RDW 17.1, Plt Count 175, MPV 10.4, Neut % (Auto) 56.0, Lymph % (Auto) 29.3, [place] % (Auto) 9.3, Eos % (Auto) 4.3, Baso % (Auto) 0.8, Neut # (Auto) 3.4, Lymph # (Auto) 1.8, [place] # (Auto) 0.6, Eos # (Auto) 0.3, Baso # (Auto) 0.1, Sodium 136, Potassium 4.5, Chloride 91 L, Carbon Dioxide 43 H*, Anion Gap 6.5, BUN 10, Creatinine 0.80, Estimated Creat Clear 37, Estimated GFR 69, Est GFR ( Amer) 84, Glucose 106 H, Calcium 8.8, Magnesium 2.3, Total Bilirubin 0.2, AST 23, ALT 12, Alkaline Phosphatase 75, Troponin I 0.02, NT-Pro-B Natriuret Pep 1090 H, Total Protein 6.1 L, Albumin 3.3 L, Globulin 2.8, Albumin/Globulin Ratio 1.2 08/04/24 13:33: VBG pH 7.17 L, VBG pCO2 93.0 H, VBG pO2 54.8 H, VBG HCO3 32.9 H, VBG Total CO2 35.8 H, VBG O2 Saturation 87.0 H, VBG Base Excess 4.4 H, VBG Lactic Acid 1.0 08/04/24 14:51: Urine Color Yellow, Urine Appearance Clear, Urine pH 6.0, Ur Specific [place] 1.020, Urine Protein Negative, Urine Glucose (UA) 3+, Urine Ketones Negative, Urine Blood Negative, Urine Nitrate Negative, Urine Bilirubin Negative, Urine Urobilinogen 1.0, Ur Leukocyte Esterase Negative, Urine RBC 3-5, Urine WBC 3-5, Ur Squamous Epith Cells 20-50, Calcium Oxalate Crystal 1+, Urine Bacteria 3+, Urine Yeast 1+ I & O for Last 24 hours: Intake & Output 08/01/24 08/02/24 08/03/24 08/04/24 23:59 23:59 23:59 23:59 Weight 109.769 kg Constitutional Constitutional: moderate distress, morbidly obese, chronically ill appearing and cooperative *Routine HEENT Exam Head: Present normocephalic Eye: Present EOMI ENT: Present mucous membranes moist *Routine Neck Exam Neck: Present supple, full ROM and trachea midline *Routine Respiratory Exam Respiratory: Present decreased breath sounds, rhonchi, wheezes and diminished air movement; Absent crackles *Routine Cardiovascular Exam Cardiovascular: Present RRR, Normal S1 and Normal S2 *Routine Abdominal Exam Abdominal: Present soft, normoactive bowel sounds and obese *Routine Rectal Exam Rectal:: deferred *Routine Genitalia Exam Genitalia:: deferred *Routine Extremities Exam Extremities: Present edema (3+ to thighs), full ROM, pulses intact and normal capillary refill Routine Back/Spine/Pelvis Exam Back/Spine: Present full ROM *Routine Skin Exam Skin: Present intact, dry and warm *Routine Neurological Exam Neurological: Present alert, altered mental status, moving all extremities and normal speech Comments: Oriented to self Routine Psychiatric Exam Psychiatric: Present normal affect and cooperative Assessment and Plan *Assessment and plan (1) Acute hypercapnic respiratory failure: Status: Acute Category: Medical Code(s): J96.02 - Acute respiratory failure with hypercapnia (2) Atrial fibrillation with rapid ventricular response: Status: Acute Category: Medical Code(s): I48.91 - Unspecified atrial fibrillation (3) Acute on chronic heart failure with preserved ejection fraction (HFpEF): Status: Acute Category: Medical Code(s): I50.33 - Acute on chronic diastolic (congestive) heart failure (4) CHF exacerbation: Status: Acute Qualifiers: Heart failure type: systolic Qualified Code(s): I50.23 - Acute on chronic systolic (congestive) heart failure Category: Medical Code(s): I50.9 - Heart failure, unspecified (5) COPD exacerbation: Status: Acute Category: Medical Code(s): J44.1 - Chronic obstructive pulmonary disease with (acute) exacerbation (6) Difficulty in walking: Status: Acute Category: Medical Code(s): R26.2 - Difficulty in walking, not elsewhere classified Plan Patito Garcia is an 79-year-old female with a medical history significant for COPD on home O2, hypertension, pulmonary embolism, hypertension, dementia, anxiety/depression, hypothyroidism who presents with shortness of breath and fatigue. Found to be hypercapnic. Initiated on BiPAP in the ED. Discussed case with ER physician, request admission for further management of hypercapnic respiratory failure. I admitted to the stepdown unit for further treatment. Pulmonology consulted to assist with care. Problems addressed as follows: #Chronic hypoxic, hypercapnic respiratory failure #COPD exacerbation -Initiated on BiPAP due to hypercapnia with pCO2 of 90 and pH of 7.19. Repeat VBG pending 3 hours after initiation of BiPAP. Tolerating at this time. Pulling volumes of 3-500. -Pulmonology consulted to assist with management. Recommend initiating doxycycline 100 mg twice daily for COPD exacerbation. -Continue Xopenex and lev albuterol every 6 hours scheduled. Continue Pulmicort twice daily - Continue methylprednisolone 40 mg IV daily - Baseline 2 to 3 L nasal cannula. Will wean as tolerated. #Afib # Acute on chronic HFpEF - In A-fib on arrival, rate controlled. Currently on amiodarone 40 mg twice daily, will continue at this time - Initial troponins nonactionable. - Recently evaluated by cardiology within the past 2 months. Had left heart cath performed with 3 drug-eluting stents placed in left circumflex and LAD. - Holding aspirin, continue Eliquis 5 mg twice daily, continue Plavix 75 mg daily. ? ECHO shows normal LV systolic function obtained in May per my review of chart - Initiate Lasix 40 mg IV once on arrival. Continue 40 mg twice daily starting in the morning due to volume overload with BNP of 1000 #Falls at home #Physical deconditioning - PT/OT consulted, appreciate recommendations. Previously recommended SNF placement at last admission. #Chronic pulmonary embolism: Eliquis. #Hypertension: Holding blood pressure medication at this time, will evaluate home regimen and consider resuming in the morning. Patient normotensive at 128/48 #Dementia: resumed home donepezil and memantine #Anxiety/depression: Resumed home buspirone, duloxetine. #Hypothyroidism: Resumed home levothyroxine 125 mcg. TSH 0.16 earlier this year Obesity complicates all aspects of her care. Concern for obesity hypoventilation component to her respiratory failure. Full code Eliquis twice daily N.p.o. while on BiPAP
--- NOTE | 2024-08-04 15:42 | EXP.PULM.CON ---
History of Present Illness History of present illness: Ms. Garcia is a 79-year-old female COPD, chronic hypoxic hypercarbic respiratory failure on 2 to 3 L nasal cannula, recently seen in the hospital for presumed pneumonia, completed 3-day course of levofloxacin at discharge from early July. Worsening respiratory found to be in hypercarbic respiratory failure and pulmonary was called for further evaluation and management. Patient admits not being compliant with her inhaler / Neb therapy upon her recent discharge. Denies any known sick contacts [facility] Disclaimer: The information contained in this section may have been updated after the patient was seen, as this information can be updated by other users. Medical History Acute on chronic respiratory failure with hypoxia and hypercapnia Acute on chronic respiratory failure with hypoxemia Acute on chronic heart failure with preserved ejection fraction (HFpEF) Depression Anxiety Pulmonary embolism Osteoarthritis Skin cancer SOB (shortness of breath) on exertion Abnormal echocardiogram Hyperlipidemia (HFpEF) heart failure with preserved ejection fraction CAD (coronary artery disease) HTN (hypertension) Heart failure Elevated troponin Chronic respiratory failure with hypoxia History of COPD Second hand smoke exposure Surgical History History of left knee replacement Family History Other No significant family history Social History Smoking Status: Former smoker alcohol intake: never current occupational status: retired Travel in the last 8 weeks?: None Have you lived/traveled outside US in past 30 days?: No Contact w/someone who lives/traveled outside US past 30 days?: No Exposure to someone with infectious disease in past 14 days?: No Do you have a fever (greater than 100.4 F or 38 C)?: No Have you tested positive for COVID-19?: No Exposed to someone with COVID-19 in past 14 days?: No Do you have a sore throat?: No Do you have a cough?: No Do you have any weakness?: No Do you have any diarrhea?: No Are you experiencing any unusual bleeding?: No Do you have any muscle aches/pain?: No Do you have any abdominal pain?: No Are you experiencing loss of taste or smell?: No Review of Systems Review of Systems Review of systems (narrative): Limited Constitutional Constitutional: Reports anorexia and Reports body ache(s) *Cardiovascular Cardiovascular: Reports dyspnea and Reports dyspnea on exertion *Respiratory Respiratory: Denies change in phlegm color, Reports chest congestion, Reports cough, Reports dyspnea, Reports dyspnea on exertion and Denies excessive phlegm production *Gastrointestinal Gastrointestinal: Denies abdominal pain, Denies belching and Denies cramping *Musculoskeletal Musculoskeletal: Reports back pain, Reports myalgias and Reports other (No small joint swelling or Pain) Pulmonology Exam Inpatient Vital signs and Labs for Last 24 Hours: Temp Pulse Resp BP Pulse Ox O2 Del Method O2 Flow Rate 97.8 F 53 L 15 90/41 L 99 BiPAP 3 08/04/24 15:20 08/04/24 15:20 08/04/24 15:20 08/04/24 15:20 08/04/24 15:14 08/04/24 15:20 08/04/24 13:31 FiO2 35 08/04/24 14:10 Laboratory Results - last 24 hr 08/04/24 13:11: WBC 6.1, RBC 3.65 L, Hgb 9.8 L, Hct 35.2 L, MCV 96.4, MCH 26.8 L, MCHC 27.8 L, RDW 17.1, Plt Count 175, MPV 10.4, Neut % (Auto) 56.0, Lymph % (Auto) 29.3, [place] % (Auto) 9.3, Eos % (Auto) 4.3, Baso % (Auto) 0.8, Neut # (Auto) 3.4, Lymph # (Auto) 1.8, [place] # (Auto) 0.6, Eos # (Auto) 0.3, Baso # (Auto) 0.1, Sodium 136, Potassium 4.5, Chloride 91 L, Carbon Dioxide 43 H*, Anion Gap 6.5, BUN 10, Creatinine 0.80, Estimated Creat Clear 37, Estimated GFR 69, Est GFR ( Amer) 84, Glucose 106 H, Calcium 8.8, Magnesium 2.3, Total Bilirubin 0.2, AST 23, ALT 12, Alkaline Phosphatase 75, Troponin I 0.02, NT-Pro-B Natriuret Pep 1090 H, Total Protein 6.1 L, Albumin 3.3 L, Globulin 2.8, Albumin/Globulin Ratio 1.2 08/04/24 13:33: VBG pH 7.17 L, VBG pCO2 93.0 H, VBG pO2 54.8 H, VBG HCO3 32.9 H, VBG Total CO2 35.8 H, VBG O2 Saturation 87.0 H, VBG Base Excess 4.4 H, VBG Lactic Acid 1.0 08/04/24 14:51: Urine Color Yellow, Urine Appearance Clear, Urine pH 6.0, Ur Specific [place] 1.020, Urine Protein Negative, Urine Glucose (UA) 3+, Urine Ketones Negative, Urine Blood Negative, Urine Nitrate Negative, Urine Bilirubin Negative, Urine Urobilinogen 1.0, Ur Leukocyte Esterase Negative, Urine RBC 3-5, Urine WBC 3-5, Ur Squamous Epith Cells 20-50, Calcium Oxalate Crystal 1+, Urine Bacteria 3+, Urine Yeast 1+ I & O for Labs for Last 24 Hours: Intake & Output 08/01/24 08/02/24 08/03/24 08/04/24 23:59 23:59 23:59 23:59 Weight 242 lb Constitutional: Present severe distress Head: Present normocephalic and atraumatic ENT: Present normal exam, normal oropharynx and mucous membranes moist Neck: Present normal inspection and full ROM Respiratory: Present prolonged expiratory phase, respiratory distress, wheezes, diminished air movement and able to speak in complete sentences Cardiac: Present S1/S2, Tachycardia and radial pulses present GI: Present soft and distention; Absent tenderness or guarding Rectal (female): Present deferred (female): Present deferred Skin: Present intact; Absent cyanosis or jaundice Neuro: Present alert, awake and oriented x 3 Extremities: Present normal inspection; Absent clubbing or cyanosis Psychiatric: Present normal affect and cooperative Meds Home Medications and Allergies Home Medications ?Medication ?Instructions ?Recorded ?Confirmed ?Type donepezil 10 mg tablet 10 mg PO HS 03/12/23 07/24/24 History duloxetine 60 mg capsule,delayed 60 mg PO DAILY 03/12/23 07/24/24 History release levothyroxine 125 mcg tablet 125 mcg PO DAILYDM 03/12/23 07/24/24 History memantine 5 mg tablet 5 mg PO BID 10/14/23 07/24/24 History apixaban 5 mg tablet (Eliquis) 5 mg PO BID #180 tabs 11/08/23 07/24/24 Rx alendronate 70 mg tablet 70 mg PO WEEKLY 02/12/24 07/24/24 History buspirone 30 mg tablet 30 mg PO BID 02/12/24 07/24/24 History albuterol sulfate 90 mcg/actuation 2 puff inhalation Q4HP PRN 02/13/24 07/24/24 History aerosol inhaler (Ventolin HFA) shortness of breath or wheezing atorvastatin 40 mg tablet 40 mg PO HS 30 days #30 tabs 02/15/24 07/24/24 Rx docusate sodium 100 mg capsule 100 mg PO BID 07/10/24 07/24/24 History (Stool Softener) fluticasone 250 mcg-salmeterol 50 1 ea inhalation BID 07/10/24 07/24/24 History mcg/dose blistr powdr for inhalation trazodone 150 mg tablet 150 mg PO HS 07/10/24 07/24/24 History amiodarone 200 mg tablet 400 mg (2 x 200 mg) PO BID 30 days 07/13/24 07/24/24 Rx #120 tabs aspirin 81 mg tablet,delayed 81 mg PO DAILY 30 days #30 tabs 07/13/24 07/24/24 Rx release clopidogrel 75 mg tablet 75 mg PO DAILY 30 days #30 tabs 07/13/24 07/24/24 Rx dapagliflozin propanediol 10 mg 10 mg PO DAILY 30 days #30 tabs 07/13/24 07/24/24 Rx tablet (Farxiga) furosemide 40 mg tablet 20 mg (1/2 x 40 mg) PO DAILY 30 07/13/24 07/24/24 Rx days #0 tabs levofloxacin 750 mg tablet 750 mg PO DAILY 3 days #3 tabs 07/13/24 07/24/24 Rx prednisone 20 mg tablet 40 mg (2 x 20 mg) PO DAILY 3 days 07/13/24 07/24/24 Rx #6 tabs valsartan 40 mg tablet 40 mg PO BID #60 tabs 07/24/24 07/24/24 Rx New Prescriptions to Start Prescriptions: Allergies Allergy/AdvReac Type Severity Reaction Status Date / Time sulfamethoxazole (From AdvReac Mild Nausea Verified 07/24/24 13:36 Bactrim) trimethoprim (From Bactrim) AdvReac Mild Nausea Verified 07/24/24 13:36 Results Laboratory Findings 08/04/24 13:11 08/04/24 13:11 Abnormal lab findings: Abnormal Labs 08/04/24 08/04/24 13:11 13:33 RBC 3.65 L Hgb 9.8 L Hct 35.2 L MCH 26.8 L MCHC 27.8 L VBG pH 7.17 L VBG pCO2 93.0 H VBG pO2 54.8 H VBG HCO3 32.9 H VBG Total CO2 35.8 H VBG O2 Saturation 87.0 H VBG Base Excess 4.4 H Chloride 91 L Carbon Dioxide 43 H* Glucose 106 H NT-Pro-B Natriuret Pep 1090 H Total Protein 6.1 L Albumin 3.3 L Assessment and Plan *Assessment and plan (1) Acute exacerbation of chronic obstructive pulmonary disease: Status: Acute Category: Medical Code(s): J44.1 - Chronic obstructive pulmonary disease with (acute) exacerbation (2) Acute on chronic respiratory failure with hypoxia and hypercapnia: Status: Acute Category: Medical Code(s): J96.21 - Acute and chronic respiratory failure with hypoxia; J96.22 - Acute and chronic respiratory failure with hypercapnia Plan Ms. Garcia is a 79-year-old female COPD, chronic hypoxic hypercarbic respiratory failure on 2 to 3 L nasal cannula, recently seen in the hospital for presumed pneumonia, completed 3-day course of levofloxacin at discharge from early July. Worsening respiratory found to be in hypercarbic respiratory failure and pulmonary was called for further evaluation and management. Patient admits not being compliant with her inhaler / Neb therapy upon her recent discharge. Denies any known sick contacts Chest x-ray from this morning improving from prior with respect to the left lower lobe airspace disease. Interstitial prominence. Right lower lobe infiltrates noted. Afebrile. Hemodynamically stable. No evidence of leukocytosis. Repeat VBG improving hypercarbic respiratory failure. On BiPAP. Alert and oriented x 3, responding appropriate verbal commands. Wheezing noted on auscultation. Plan: Continue BiPAP therapy, currently on 09/25 with a rate of 22. Dropped FiO2 to 21% with O2 saturation goal of 90 to 95%. DuoNebs every 4 hours along with Pulmicort every 12 scheduled Doxycycline 100 mg twice daily IV Methylprednisolone 40 mg IV daily Follow with sputum Gram stain culture, full respiratory viral PCR panel and nasal MRSA PCR Follow up procalcitonin Thank you for involving pulmonary in this patient care. Will continue to follow.
[2024-08-04 15:43] LABS: VBG PCO2 81.6 mmol/L (35-51)
[2024-08-04 16:19] LABS: Procalcitonin 0.053 ng/mL (0.0-2.0)
[2024-08-04] MEDS: FUROSEMIDE 40MG/4ML VIAL 40 MG IV (16:31)
--- OUTSIDE RECORDS SUMMARY | 2024-08-04 16:39 | XMS_ITS | CCD ---
Author Organization Unknown Care Team Providers Care Grab Operator Name Role Phone Non Engaged, [facility] Primary Care Provider Unav ailable Unavailable Chronic Care Management Unavaila ble Summary Purpose [employer] Insurance Providers Payer name Policy type / Coverage type Covered democrat ID Effective Begin Date Effective End Date [facility] [id number] Unknown Unknown Family History Family History data not found Medication Administered No Medication Administered data Reason For Visit No Reason For Visit data Medical Equipment No Medical Equipment data Advance Directives No Advance Directive data
--- OUTSIDE RECORDS SUMMARY | 2024-08-04 16:39 | XMS_ITS | CCD ---
Author Organization Unknown Care Team Providers Care Mortgage Loan Specialist Name Role Phone Non Engaged, [facility] Primary Care Provider Unav ailable Unavailable Chronic Care Management Unavaila ble Summary Purpose [employer]Exchange Insurance Providers Payer name Policy type / Coverage type Covered green party ID Effective Begin Date Effective End Date [facility] [id number] Unknown Unknown Family History Family History data not found Medication Administered No Medication Administered data Reason For Visit No Reason For Visit data Medical Equipment No Medical Equipment data Advance Directives No Advance Directive data
[2024-08-04 17:02] LABS: Chlamydophila Pneumoniae, PCR Not Detected (NotDetected); Coronavirus 19, PCR Not Detected (NotDetected); Mycoplasma Pneumoniae, PCR Not Detected (NotDetected); Parainfluenza 4, PCR Not Detected (NotDetected)
[2024-08-04 17:04] LABS: Adenovirus,PCR Not Detected (NotDetected); Coronovirus HKU1,PCR Not Detected (NotDetected); Influenza A, PCR Not Detected (NotDetected); Influenza AH1, 2009 Not Detected (NotDetected); Influenza AH1, PCR Not Detected (NotDetected); Influenza AH3,PCR Not Detected (NotDetected); Influenza B, PCR Not Detected (NotDetected); Parainfluenza 1, PCR Not Detected (NotDetected); Parainfluenza 2, PCR Not Detected (NotDetected); Parainfluenza 3, PCR Not Detected (NotDetected)
[2024-08-04] MEDS: DOXYCYCLINE HYCLATE 100 MG in 0.9 % SODIUM CHLORIDE 250 ML 166.667 MG IV (17:12)
[2024-08-04 17:32] LABS: Troponin I 0.02 ng/ml (0.00-0.034)
[2024-08-04 18:20] LABS: Lactate Venous 1.4 mmol/L (0.4-2.0); VBG HCO3 31.7 mmol/L (23-30); VBG PH 7.41 mmol/L (7.31-7.41); VBG PO2 49.1 mmol/L (28-40)
[2024-08-04 18:21] LABS: VBG PCO2 51.5 mmol/L (35-51)
[2024-08-04] MEDS: BUDESONIDE 0.5MG/2ML NEB 0.5 MG IH (18:24)
[2024-08-04] MEDS: IPRATROPIUM/ALBUTEROL 3 ML NEB IH (18:25)
[2024-08-04] MEDS: SODIUM CHLORIDE 3% 15ML NEB 3 ML IH (18:25)
--- NOTE | 2024-08-04 18:26 | PC.NURSE ---
Addendum entered by Ilene Burnham RN 08/04/24 18:33: stated okay for patient to eat dinner and go back on bipap after two hours Original Note: tiffanie notified of abg.
[2024-08-04 20:58] LABS: Troponin I 0.02 ng/ml (0.00-0.034)
[2024-08-04] MEDS: DOCUSATE SODIUM 100 MG CAPSULE PO (21:03)
[2024-08-04] MEDS: AMIODARONE 200MG TABLET 400 MG PO (21:03)
[2024-08-04] MEDS: APIXABAN 5MG TABLET 5 MG PO (21:03)
[2024-08-04] MEDS: LEVALBUTEROL 1.25MG/3ML NEB 1.25 MG IH (21:34)
[2024-08-04] MEDS: IPRATROPIUM BROMIDE 0.5 MG/2.5ML SOLUTION IH (21:35)
[2024-08-05] VITALS (36 sets, daily range): BP systolic 102–137; BP diastolic 39–61; PULSE 41–84; RESP 11–26; TEMP 36.9–37.7; O2SAT 64–100; BMI 43.3
--- NOTE | 2024-08-05 00:38 | PC.NURSE ---
[phone]
[2024-08-05] MEDS: LEVALBUTEROL 1.25MG/3ML NEB 1.25 MG IH ×6 (01:43→22:45)
[2024-08-05] MEDS: IPRATROPIUM BROMIDE 0.5 MG/2.5ML SOLUTION IH ×6 (01:43→22:45)
[2024-08-05] MEDS: DOXYCYCLINE HYCLATE 100 MG in 0.9 % SODIUM CHLORIDE 250 ML 166.667 MG IV ×2 (03:57→16:12)
[2024-08-05] MEDS: BUDESONIDE 0.5MG/2ML NEB 0.5 MG IH ×2 (06:07→18:28)
[2024-08-05] MEDS: KETOROLAC 30MG/ML VIAL 15 MG IV (06:48)
[2024-08-05 07:31] LABS: Hematocrit 30.1 % (37.0-47.0); Immature Granulocytes % 0.3 %; Mean Corpuscular HGB Conc 29.2 g/dL (31.8-35.4); Mean Corpuscular Hemoglobin 26.7 pg (27.0-31.2); Mean Corpuscular Volume 91.5 fl (81-99); Nucleated Red Blood Cells % 0 %; Platelet Count 155 K/mm3 (142-424); Red Blood Count 3.29 M/mm3 (4.20-5.40); Red Cell Distribution Width-SD 57.7 fL; White Blood Count 6.3 K/mm3 (4.8-10.8)
--- NOTE | 2024-08-05 07:35 | PC.NURSE ---
Pt taken off bipap to eat breakfast and did not tolerate taking off of bipap and dropped to 64%. pt placed back on bipap.
[2024-08-05 07:40] LABS: Albumin Level 2.9 g/dl (3.5-5.0); Chloride 90 mmol/L (98-107); Sodium 134 mmol/L (136-145)
[2024-08-05 07:41] LABS: Hemoglobin 8.5 g/dL (12.2-16.2); Potassium 4.4 mmoL/L (3.5-5.1)
[2024-08-05 07:43] LABS: Alanine Aminotransferase 14 U/L (12-78); Albumin/Globulin Ratio 1.3 (1.1-1.8); Alkaline Phosphatase 72 U/L (38-126); Anion Gap 9.4 mEq/L (5-15); Aspartate Amino Transferase 24 U/L (14-36); Bilirubin,Total 0.2 mg/dl (0.2-1.3); Blood Urea Nitrogen 13 mg/dl (7-17); Calcium 8.1 mg/dl (8.4-10.2); Carbon Dioxide 39 mmol/L (22.0-30.0); Cholesterol 113 mg/dl (140-200); Creatinine Clearance Estimated 35 mL/min (50-200); Creatinine,Serum 0.90 mg/dl (0.52-1.04); Estimated Glomerular Filt Rate 60 ml/min (>60); GFR (African American) 73 ML/MIN (>60); Globulin 2.3 g/dL (1.3-3.2); Glucose 94 mg/dl (74-100); Total Protein,Serum 5.2 g/dl (6.3-8.2); Triglycerides 56 mg/dl (30-150)
[2024-08-05 07:44] LABS: HDL Cholesterol 46 mg/dl (40-60); Magnesium 2.0 mg/dl (1.6-2.3)
[2024-08-05 09:05] LABS: ABG HCO3 38.0 mmhg (22.0-26.0); ABG PCO2 47.2 mmhg (35.0-45.0); ABG PH 7.52 mmol/L (7.35-7.45); ABG PO2 76.1 mmhg (80-100); ABG TCO2 39.5 mmhg (23-27)
[2024-08-05 09:07] LABS: Source Left Radial
[2024-08-05] MEDS: FUROSEMIDE 40MG/4ML VIAL 40 MG IV ×2 (09:35→16:11)
[2024-08-05] MEDS: METHYLPREDNISOLONE SOD SUCC 40MG VIAL 40 MG IV (09:35)
[2024-08-05] MEDS: CLOPIDOGREL 75MG TAB 75 MG PO (09:36)
[2024-08-05] MEDS: LEVOTHYROXINE 125MCG (0.125MG) TAB 125 MCG PO (09:36)
[2024-08-05] MEDS: DOCUSATE SODIUM 100 MG CAPSULE PO ×2 (09:36→20:06)
[2024-08-05] MEDS: APIXABAN 5MG TABLET 5 MG PO ×2 (09:36→20:06)
[2024-08-05] MEDS: BUSPIRONE HCL 10 MG TABLET 30 MG PO ×2 (09:37→20:06)
[2024-08-05] MEDS: MEMANTINE 10MG TABLET 5 MG PO ×2 (09:38→20:07)
--- NOTE | 2024-08-05 09:44 | HMH.PHAINT1 ---
Pharmacy Intervention Comments: MEDICATION RECONCILIATION COMPLETE USING RECENT HOSPITAL DISCHARGE LIST, RECENT CARDIOLOGY OFFICE VISIT NOTE, AND EXTERNAL PHARMACY FILL HISTORY.
--- NOTE | 2024-08-05 11:39 | EXP.ACUTE.PN ---
Subjective *Date: 08/05/24 *Time: 22:17 Interval history: Some improvement in mentation today. Blood gas improved. Tolerating p.o. intake. Afebrile. Medical Exam Vital signs and Labs for Last 24 Hours: Vital Signs Temp Pulse Pulse Resp BP BP Pulse Ox 08/05/24 10:13 90 L 08/05/24 10:10 93 L 08/05/24 10:01 62 16 108/61 L 96 08/05/24 09:30 66 19 92 L 08/05/24 09:15 62 19 98 08/05/24 09:01 104/55 L 08/05/24 09:01 62 24 100 08/05/24 09:00 08/05/24 09:00 53 L 17 97 08/05/24 08:30 99.9 F H 63 22 102/42 L 93 L 08/05/24 08:00 60 08/05/24 07:35 64 L 08/05/24 06:54 08/05/24 06:12 08/05/24 06:11 61 08/05/24 06:11 65 08/05/24 06:00 41 L 14 122/51 L 100 08/05/24 04:44 08/05/24 04:00 66 08/05/24 04:00 98.4 F 65 19 131/49 L 95 08/05/24 03:00 08/05/24 02:48 08/05/24 02:00 72 16 130/51 L 95 08/05/24 01:43 58 L 08/05/24 01:43 59 L 08/05/24 01:00 08/05/24 00:00 65 08/05/24 00:00 70 19 98 08/04/24 22:32 08/04/24 22:00 08/04/24 22:00 63 24 135/99 H 93 L 08/04/24 21:37 61 08/04/24 21:37 67 08/04/24 21:00 08/04/24 20:30 68 17 97 08/04/24 20:00 67 08/04/24 20:00 95 08/04/24 20:00 98.6 F 69 16 149/56 H 95 08/04/24 19:00 08/04/24 18:25 56 L 22 08/04/24 18:25 56 L 08/04/24 18:25 61 08/04/24 18:25 95 08/04/24 18:25 08/04/24 18:01 56 L 22 124/43 L 96 08/04/24 18:00 98.2 F 56 L 22 124/43 L 96 08/04/24 17:00 08/04/24 16:09 60 08/04/24 16:00 71 18 149/68 H 90 L 08/04/24 15:47 90 L 08/04/24 15:44 97.8 F 63 22 134/57 L 90 L 08/04/24 15:20 97.8 F 53 L 15 90/41 L 08/04/24 15:14 54 L 13 108/45 L 99 08/04/24 15:01 18 90/40 L 99 08/04/24 14:10 08/04/24 14:02 56 L 25 H 126/63 97 08/04/24 13:31 21 144/121 H 95 08/04/24 13:27 97.9 F 61 19 142/52 H 97 O2 Del Method O2 Flow Rate FiO2 08/05/24 10:13 Nasal Cannula 3 08/05/24 10:10 Nasal Cannula 3 08/05/24 10:01 BiPAP 08/05/24 09:30 08/05/24 09:15 08/05/24 09:01 BiPAP 08/05/24 09:01 08/05/24 09:00 BiPAP 08/05/24 09:00 08/05/24 08:30 BiPAP 08/05/24 08:00 08/05/24 07:35 Nasal Cannula 3 08/05/24 06:54 BiPAP 08/05/24 06:12 30 08/05/24 06:11 08/05/24 06:11 08/05/24 06:00 BiPAP 08/05/24 04:44 BiPAP 30 08/05/24 04:00 08/05/24 04:00 BiPAP 08/05/24 03:00 BiPAP 08/05/24 02:48 30 08/05/24 02:00 BiPAP 08/05/24 01:43 08/05/24 01:43 08/05/24 01:00 BiPAP 30 08/05/24 00:00 08/05/24 00:00 BiPAP 08/04/24 22:32 BiPAP 08/04/24 22:00 30 08/04/24 22:00 BiPAP 08/04/24 21:37 08/04/24 21:37 08/04/24 21:00 BiPAP 08/04/24 20:30 Nasal Cannula 4 08/04/24 20:00 08/04/24 20:00 Nasal Cannula 3 08/04/24 20:00 Nasal Cannula 3 08/04/24 19:00 Nasal Cannula 4 08/04/24 18:25 08/04/24 18:25 08/04/24 18:25 08/04/24 18:25 BiPAP 30 08/04/24 18:25 30 08/04/24 18:01 BiPAP 30 08/04/24 18:00 BiPAP 35 08/04/24 17:00 BiPAP 08/04/24 16:09 08/04/24 16:00 BiPAP 08/04/24 15:47 BiPAP 35 08/04/24 15:44 BiPAP 35 08/04/24 15:20 BiPAP 08/04/24 15:14 BiPAP 08/04/24 15:01 BiPAP 08/04/24 14:10 35 08/04/24 14:02 BiPAP 08/04/24 13:31 Nasal Cannula 3 08/04/24 13:27 Nasal Cannula 3 Intake and Output 08/04/24 08/05/24 08/05/24 23:59 07:59 15:59 Intake Total 240 / 250 10 / 250 Output Total 800 / 800 450 / 450 Balance -800 / -560 -210 / -200 10 / -200 Intake: Intake, Oral Amount 240 / 240 Intake, Other Amount 10 / 10 Output: Output, Urine Amount 800 / 800 450 / 450 Other: Intake, Other Source Saline Solution Number of Unmeasured Voids 0 0 Weight 111.039 kg Patient Weight 08/05/24 23:59 Weight 111.039 kg Laboratory Results - last 24 hr 08/04/24 13:11: WBC 6.1, RBC 3.65 L, Hgb 9.8 L, Hct 35.2 L, MCV 96.4, MCH 26.8 L, MCHC 27.8 L, RDW 17.1, Plt Count 175, MPV 10.4, Neut % (Auto) 56.0, Lymph % (Auto) 29.3, [place] % (Auto) 9.3, Eos % (Auto) 4.3, Baso % (Auto) 0.8, Neut # (Auto) 3.4, Lymph # (Auto) 1.8, [place] # (Auto) 0.6, Eos # (Auto) 0.3, Baso # (Auto) 0.1, Sodium 136, Potassium 4.5, Chloride 91 L, Carbon Dioxide 43 H*, Anion Gap 6.5, BUN 10, Creatinine 0.80, Estimated Creat Clear 37, Estimated GFR 69, Est GFR ( Amer) 84, Glucose 106 H, Calcium 8.8, Magnesium 2.3, Total Bilirubin 0.2, AST 23, ALT 12, Alkaline Phosphatase 75, Troponin I 0.02, NT-Pro-B Natriuret Pep 1090 H, Total Protein 6.1 L, Albumin 3.3 L, Globulin 2.8, Albumin/Globulin Ratio 1.2, Procalcitonin 0.053 08/04/24 13:33: VBG pH 7.17 L, VBG pCO2 93.0 H, VBG pO2 54.8 H, VBG HCO3 32.9 H, VBG Total CO2 35.8 H, VBG O2 Saturation 87.0 H, VBG Base Excess 4.4 H, VBG Lactic Acid 1.0 08/04/24 14:51: Urine Color Yellow, Urine Appearance Clear, Urine pH 6.0, Ur Specific [place] 1.020, Urine Protein Negative, Urine Glucose (UA) 3+, Urine Ketones Negative, Urine Blood Negative, Urine Nitrate Negative, Urine Bilirubin Negative, Urine Urobilinogen 1.0, Ur Leukocyte Esterase Negative, Urine RBC 3-5, Urine WBC 3-5, Ur Squamous Epith Cells 20-50, Calcium Oxalate Crystal 1+, Urine Bacteria 3+, Urine Yeast 1+ 08/04/24 14:52: VBG pH 7.24 L, VBG pCO2 81.6 H, VBG pO2 37.4, VBG HCO3 34.3 H, VBG Total CO2 36.8 H, VBG O2 Saturation 72.1 H, VBG Base Excess 6.9 H, VBG Lactic Acid 0.6 08/04/24 16:34: Chlamy pneumoniae PCR Not detected, Adenovirus (PCR) Not detected, B. pertussis DNA (PCR) Not detected, Coronavirus OC43 (PCR) Not detected, Coronavirus HKU1 (PCR) Not detected, Coronavirus 229E (PCR) Not detected, SARS-CoV-2 (PCR) Not detected, Coronavirus NL63 (PCR) Not detected, Human Metapneumovir PCR Not detected, Influenza A (H1) PCR Not detected, Influ A (H1N1/09) PCR Not detected, Influenza A (H3) PCR Not detected, Influenza Type A (PCR) Not detected, Influenza Type B (PCR) Not detected, M. pneumoniae (PCR) Not detected, Parainfluenza 1 (PCR) Not detected, Parainfluenza 2 (PCR) Not detected, Parainfluenza 3 (PCR) Not detected, Parainfluenza 4 (PCR) Not detected, RSV (PCR) Not detected, Entero/Rhino (PCR) Not detected 08/04/24 16:54: Troponin I 0.02 08/04/24 18:12: VBG pH 7.41, VBG pCO2 51.5 H, VBG pO2 49.1 H, VBG HCO3 31.7 H, VBG Total CO2 33.3 H, VBG O2 Saturation 89.2 H, VBG Base Excess 7.0 H, VBG Lactic Acid 1.4 08/04/24 20:22: Troponin I 0.02 08/05/24 07:11: WBC 6.3, RBC 3.29 L, Hgb 8.5 L D, Hct 30.1 L, MCV 91.5, MCH 26.7 L, MCHC 29.2 L, RDW 17.1, Plt Count 155, MPV 10.6 H, Neut % (Auto) 58.2, Lymph % (Auto) 29.1, [place] % (Auto) 10.2 H, Eos % (Auto) 1.7, Baso % (Auto) 0.5, Neut # (Auto) 3.7, Lymph # (Auto) 1.8, [place] # (Auto) 0.6, Eos # (Auto) 0.1, Baso # (Auto) 0.0, Sodium 134 L, Potassium 4.4, Chloride 90 L, Carbon Dioxide 39 H, Anion Gap 9.4, BUN 13 D, Creatinine 0.90, Estimated Creat Clear 35, Estimated GFR 60, Est GFR ( Amer) 73, Glucose 94, Calcium 8.1 L, Magnesium 2.0 D, Total Bilirubin 0.2, AST 24, ALT 14, Alkaline Phosphatase 72, Total Protein 5.2 L, Albumin 2.9 L D, Globulin 2.3, Albumin/Globulin Ratio 1.3, Triglycerides 56, Cholesterol 113 L, LDL Cholesterol Direct 37.00 L, VLDL Cholesterol 11, HDL Cholesterol 46, Cholesterol/HDL Ratio 2.5 08/05/24 08:32: Specimen Source Left radial, O2 % Bipap 18/8 30%, ABG pH 7.52 H, ABG pCO2 47.2 H, ABG pO2 76.1 L, ABG HCO3 38.0 H, ABG Total CO2 39.5 H, ABG O2 Saturation 97, ABG Base Excess 15.2 H, Clark Test Acceptable, Vent Rate 22 I & O for Labs for Last 24 Hours: Intake & Output 08/02/24 08/03/24 08/04/24 08/05/24 23:59 23:59 23:59 23:59 Intake Total 250 / 250 Output Total 800 / 800 450 / 450 Balance -800 / -560 -200 / -200 Weight 107.303 kg 111.039 kg Microbiology Reports for the Last 24 Hours: Microbiology 08/04/24 21:35 Sputum - Expectorated Sputum Gram Stain - Final Constitutional: Present mild distress, morbidly obese, chronically ill appearing and cooperative Head: Present atraumatic and normocephalic ENT: Present normal exam Respiratory: Present prolonged expiratory phase, crackles (bases) and diminished air movement; Absent rhonchi or wheezes Cardiac: Present Reg Rate and Rhythm GI: Present soft and normal bowel sounds; Absent distention or tenderness Extremities: Present normal inspection, full ROM and edema (2+ to knees) Skin: Present intact and pallor; Absent erythema Neuro: Present Grossly Intact, alert, awake and moves all extremities Comment:: Oriented to self and place; Assessment and Plan *Assessment and plan (1) Acute hypercapnic respiratory failure: Status: Acute Category: Medical Code(s): J96.02 - Acute respiratory failure with hypercapnia (2) Atrial fibrillation with rapid ventricular response: Status: Acute Category: Medical Code(s): I48.91 - Unspecified atrial fibrillation (3) Acute on chronic heart failure with preserved ejection fraction (HFpEF): Status: Acute Category: Medical Code(s): I50.33 - Acute on chronic diastolic (congestive) heart failure (4) CHF exacerbation: Status: Acute Qualifiers: Heart failure type: systolic Qualified Code(s): I50.23 - Acute on chronic systolic (congestive) heart failure Category: Medical Code(s): I50.9 - Heart failure, unspecified (5) COPD exacerbation: Status: Acute Category: Medical Code(s): J44.1 - Chronic obstructive pulmonary disease with (acute) exacerbation (6) Difficulty in walking: Status: Acute Category: Medical Code(s): R26.2 - Difficulty in walking, not elsewhere classified Plan Patito Garcia is an 79-year-old female with a medical history significant for COPD on home O2, hypertension, pulmonary embolism, hypertension, dementia, anxiety/depression, hypothyroidism who presents with shortness of breath and fatigue. Found to be hypercapnic. Initiated on BiPAP in the ED. Discussed case with ER physician, request admission for further management of hypercapnic respiratory failure. I admitted to the stepdown unit for further treatment. Pulmonology consulted to assist with care. Doing better this morning. Improvement in mentation. Blood gas this morning with improvement in pH on ABG. Continue to keep patient admitted to evaluate for need for BiPAP and continued management of respiratory failure. Problems addressed as follows: #Chronic hypoxic, hypercapnic respiratory failure #COPD exacerbation -Initiated on BiPAP due to hypercapnia with pCO2 of 90 and pH of 7.19. - For BiPAP overnight, morning ABG with pH 7.5. pCO2 improved. Will continue nasal cannula oxygen today at baseline of 3 L. Monitor overnight with overnight pulse ox. Repeat ABG ordered for the morning. If pCO2 increases, qualify for BiPAP at home. - Continue doxycycline 100 mg twice daily -Continue Xopenex and lev albuterol every 6 hours scheduled. Continue Pulmicort twice daily - Continue methylprednisolone 40 mg IV daily - Continue supplemental oxygen as needed, currently on 3 L. Goal sats greater 90%. #Afib # Acute on chronic HFpEF - In A-fib on arrival, rate controlled. Currently on amiodarone 400 mg twice daily, will continue at this time - Recently evaluated by cardiology within the past 2 months. Had left heart cath performed with 3 drug-eluting stents placed in left circumflex and LAD. - Holding aspirin, continue Eliquis 5 mg twice daily, continue Plavix 75 mg daily. ? ECHO shows normal LV systolic function obtained in May per my review of chart - Continue Lasix 40 mg IV twice daily. -1 L since admission #Falls at home #Physical deconditioning - PT/OT consulted, appreciate recommendations. Previously recommended SNF placement at last admission. #Chronic pulmonary embolism: Eliquis. #Hypertension: Holding blood pressure medication at this time, will evaluate home regimen and consider resuming in the morning. Patient normotensive at 128/48 #Dementia: resumed home donepezil and memantine #Anxiety/depression: Resumed home buspirone, duloxetine. #Hypothyroidism: Resumed home levothyroxine 125 mcg. TSH 0.16 earlier this year Obesity complicates all aspects of her care. Concern for obesity hypoventilation component to her respiratory failure. Full code Eliquis twice daily N.p.o. while on BiPAP
[2024-08-05 12:49] LABS: Lactate Venous 2.8 mmol/L (0.4-2.0); VBG HCO3 33.1 mmol/L (23-30); VBG PCO2 40.8 mmol/L (35-51); VBG PH 7.53 mmol/L (7.31-7.41); VBG PO2 51.1 mmol/L (28-40)
[2024-08-05 12:49] LABS: Adenovirus F 40/41, stool Not Detected (NotDetected); Clostridium Difficile A/B, PCR Not Detected (NotDetected); Cyclospora Cayetanesis Not Detected (NotDetected); Plesimonas Shigalloides, PCR Not Detected (NotDetected); Salmonella, PCR Not Detected (NotDetected); Shiga-like toxin E coli Not Detected (NotDetected); Shigella Enterovasive E coli Not Detected (NotDetected); Vibrio, PCR Not Detected (NotDetected); Yersinia Entercolitica, PCR Not Detected (NotDetected)
--- NOTE | 2024-08-05 15:59 | HMH.PTEV ---
Physical Therapy Evaluation Rehab PT IP Evaluation Start: 08/04/24 18:59 Freq: ONCE Status: Active Protocol: Document 08/05/24 15:41 [email or web address] (Rec: 08/05/24 15:59 [email or web address] [id number]) Subjective/History History History Pt. is a 79 year old female w/ a PMH of chronic hypoxemic respiratory failure, COPD, hypertension, HFpEF, obesity, and tremors who presents to [facility] ICU secondary to a fall at home. Pt. reports he legs giving out while she was trying to ambulate to the bathroom at home. Pt. reports her granddaughter guided pt. to the floor. Pt. c/o both legs shaking real bad while she is on her feet. Pt. reports S/P LLE TKA. Pt. reports a medial history of tremors, but states the shaking worsens w/ increased activity on her feet. Pt. reports she is mostly sedentary at home and that her granddaughter helps out a lot. Pt. reports she transfers w/ her AD to the chair and bed, but w/ assistance. Pt. report living in a 1 story home w/ a ramp on the outside to enter/exit home. Subjective Subjective Pt.'s granddaughter was present in the same room as pt. at the time of the PT Inpatient Evaluation. Pt. reports, my legs will shake when I stand up. New diagnosis of No cancer in past 12 months? [facility] How much help from another person do you currently need... Turning from your A little back to your side while in a flat bed without using bedrails? Moving from lying on A little back to sitting on the side of a flat bed without using bedrails? Moving to and from a A little bed to a chair ( including a wheelchair)? Standing up from a A little chair using your arms? (e.g., wheelchair, bedside chair) Walking in hospital Total room? Climbing 3-5 steps Total with a railing? Mobility Score 14 Mobility Level [facility] Mobility 4 Move to chair/commode Mobility Calculator Rehab PT IP Eval Objective Appearance Patient Behavior Appropriate,Cooperative,Anxious Patient Orientation Person,Place Difficulty following mild instructions Speech Pattern Appropriate,Delayed,Soft-Spoken,Monotone Ambulation Patient Able to No Ambulate Balance Ability to Arise Able, uses arms to help Sitting Balance Steady, safe Standing Balance Steady, wide stance Dynamic Sitting Fair Balance Ability Dynamic Standing Fair Balance Ability Transfers Bed Transfer Ability Minimal x 2 (25% assist) Chair Transfer Minimal x 1 (25% assist) Ability Sit to Stand Bed Minimal x 1 (25% assist) Transfer Ability Sit to Stand Chair Minimal x 1 (25% assist) Transfer Ability Pain back Pain Intensity 8 ROM RLE PT ROM Status WFL LLE PT ROM Status WFL MMT RLE PT MMT ABN LLE PT MMT ABN Rehab PT IP prob,goals,plan Problems Date of Evaluation: 08/05/24 PT IP Problems Bed Mobility,Transfers,Balance,Self care,Safety Rehab Potential Rehab Potential Good Equipment Needs Assistive Devices Standard Walker Plan PT Intervention Plan Bed Mobility,Transfers,Gait,Balance,Self care,Safety, Therapeutic Exercise PT Plan Frequency BID Duration LOS Discharge Goals Bed Transfer Ability Minimal x 1 (25% assist) Sit to Stand Chair Contact Guard/Hand Hold Transfer Ability Discharge Plan PT Discharge Plan PT recommendation to a PT Inpatient Rehab. facility upon discharge from [facility], once medically stable per MD. Pt.'s current activity level status coupled w/ assistance at home increases pt. risk to have another fall. Therefore, pt. would receive further benefit upon discharge to PT Inpatient Rehab. facility to improve on current muscle strength, endurance, and stamina to improved quality of ADL status. Upon stay at [facility] pt. would receive benefit from skilled Acute Care PT to improve on deficits and reduce the risk for a fall. Eval Complexity Eval Charge Codes 09648 - Moderate Complexity PHYSICIAN CERTIFICATION: I certify the specified therapy services for Patito Garcia are required, authorized, and reviewed every 30 days.
[2024-08-05 16:48] LABS: Reflex Lactic Add Lactic Reflex
[2024-08-05 17:43] LABS: Lactic Acid Follow Up (RFLX 1) 2.4 mmol/L (0.7-2.1)
[2024-08-05] MEDS: HYDROCODONE/APAP 5/325 MG TABLET 1 TAB PO (18:39)
[2024-08-05 19:28] LABS: Reflex Lactic (2 hrs) Add Lactic Reflex
[2024-08-05 19:54] LABS: Lactic Acid Follow up (RFLX 2) 1.6 mmol/L (0.7-2.1)
[2024-08-05] MEDS: AMIODARONE 200MG TABLET 400 MG PO (20:06)
[2024-08-06] VITALS (23 sets, daily range): BP systolic 90–163; BP diastolic 37–59; PULSE 65–80; RESP 12–23; TEMP 36.6–37.2; O2SAT 90–99; BMI 43.0
[2024-08-06] MEDS: LEVALBUTEROL 1.25MG/3ML NEB 1.25 MG IH ×6 (02:20→21:53)
[2024-08-06] MEDS: IPRATROPIUM BROMIDE 0.5 MG/2.5ML SOLUTION IH ×6 (02:20→21:53)
[2024-08-06] MEDS: DOXYCYCLINE HYCLATE 100 MG in 0.9 % SODIUM CHLORIDE 250 ML 166.667 MG IV ×2 (03:01→15:24)
[2024-08-06] MEDS: LEVOTHYROXINE 125MCG (0.125MG) TAB 125 MCG PO (06:04)
[2024-08-06] MEDS: BUDESONIDE 0.5MG/2ML NEB 0.5 MG IH ×2 (06:38→18:23)
[2024-08-06 07:58] LABS: Hematocrit 34.1 % (37.0-47.0); Hemoglobin 9.5 g/dL (12.2-16.2); Immature Granulocytes % 0.4 %; Mean Corpuscular HGB Conc 27.9 g/dL (31.8-35.4); Mean Corpuscular Hemoglobin 25.7 pg (27.0-31.2); Mean Corpuscular Volume 92.4 fl (81-99); Nucleated Red Blood Cells % 0 %; Platelet Count 177 K/mm3 (142-424); Red Blood Count 3.69 M/mm3 (4.20-5.40); Red Cell Distribution Width-SD 60.2 fL; White Blood Count 8.3 K/mm3 (4.8-10.8)
[2024-08-06 08:05] LABS: ABG HCO3 35.9 mmhg (22.0-26.0); ABG PH 7.35 mmol/L (7.35-7.45); ABG PO2 60.1 mmhg (80-100); ABG TCO2 37.9 mmhg (23-27)
[2024-08-06 08:08] LABS: ABG PCO2 66.0 mmhg (35.0-45.0)
[2024-08-06 08:16] LABS: Magnesium 2.1 mg/dl (1.6-2.3)
[2024-08-06 08:23] LABS: Alanine Aminotransferase 11 U/L (12-78); Albumin Level 3.0 g/dl (3.5-5.0); Albumin/Globulin Ratio 1.2 (1.1-1.8); Alkaline Phosphatase 68 U/L (38-126); Anion Gap 7.8 mEq/L (5-15); Aspartate Amino Transferase 19 U/L (14-36); Bilirubin,Total 0.3 mg/dl (0.2-1.3); Blood Urea Nitrogen 24 mg/dl (7-17); Calcium 8.7 mg/dl (8.4-10.2); Carbon Dioxide 39 mmol/L (22.0-30.0); Chloride 93 mmol/L (98-107); Creatinine Clearance Estimated 35 mL/min (50-200); Creatinine,Serum 1.00 mg/dl (0.52-1.04); Estimated Glomerular Filt Rate 53 ml/min (>60); GFR (African American) 65 ML/MIN (>60); Globulin 2.6 g/dL (1.3-3.2); Glucose 97 mg/dl (74-100); Potassium 3.8 mmoL/L (3.5-5.1); Sodium 136 mmol/L (136-145); Total Protein,Serum 5.6 g/dl (6.3-8.2)
[2024-08-06] MEDS: METHYLPREDNISOLONE SOD SUCC 40MG VIAL 40 MG IV (08:34)
[2024-08-06] MEDS: APIXABAN 5MG TABLET 5 MG PO ×2 (08:34→21:46)
[2024-08-06] MEDS: FUROSEMIDE 40MG/4ML VIAL 40 MG IV ×2 (08:34→15:24)
[2024-08-06] MEDS: CLOPIDOGREL 75MG TAB 75 MG PO (08:35)
[2024-08-06] MEDS: MEMANTINE 10MG TABLET 5 MG PO ×2 (08:35→21:46)
[2024-08-06] MEDS: BUSPIRONE HCL 10 MG TABLET 30 MG PO ×2 (08:35→21:46)
[2024-08-06] MEDS: AMIODARONE 200MG TABLET 400 MG PO ×2 (08:35→21:46)
[2024-08-06] MEDS: DOCUSATE SODIUM 100 MG CAPSULE PO ×2 (08:35→21:46)
[2024-08-06] MEDS: HYDROCODONE/APAP 5/325 MG TABLET 1 TAB PO (13:19)
--- NOTE | 2024-08-06 17:04 | EXP.ACUTE.PN ---
Subjective *Date: 08/06/24 *Time: 17:04 Interval history: Wore nasal cannula oxygen at night per home baseline regimen at 2 L. Alert and at baseline mentation this morning. Afebrile. No nausea or vomiting. Meeting criteria for BiPAP. Medical Exam Vital signs and Labs for Last 24 Hours: Vital Signs Temp Pulse Resp BP Pulse Ox O2 Del Method O2 Flow Rate 08/06/24 17:00 Nasal Cannula 2 08/06/24 16:01 97.9 F 71 17 121/47 L 90 L Nasal Cannula 2 08/06/24 16:00 90 L Nasal Cannula 2 08/06/24 16:00 70 08/06/24 15:00 Nasal Cannula 2 08/06/24 14:53 66 08/06/24 14:53 66 08/06/24 14:53 91 L Nasal Cannula 2 08/06/24 13:00 Nasal Cannula 2 08/06/24 12:01 98.9 F 71 16 141/43 H 92 L Nasal Cannula 2 08/06/24 12:00 70 08/06/24 11:49 91 L Nasal Cannula 2 08/06/24 11:00 Nasal Cannula 2 08/06/24 09:00 Nasal Cannula 2 08/06/24 08:46 95 Nasal Cannula 2 08/06/24 08:01 69 22 102/37 L 94 L Nasal Cannula 2 08/06/24 08:00 70 08/06/24 07:29 91 L Nasal Cannula 2 08/06/24 06:41 66 08/06/24 06:41 67 08/06/24 06:31 Nasal Cannula 3 08/06/24 06:01 65 12 90/59 L 99 Nasal Cannula 3 08/06/24 04:47 Nasal Cannula 3 08/06/24 04:00 98.8 F 70 14 112/38 L 99 Nasal Cannula 3 08/06/24 04:00 72 08/06/24 03:00 Nasal Cannula 3 08/06/24 02:22 78 08/06/24 02:21 78 08/06/24 02:00 76 15 163/57 H 95 Nasal Cannula 3 08/06/24 01:41 Nasal Cannula 3 08/06/24 00:51 Nasal Cannula 3 08/06/24 00:00 78 08/06/24 00:00 98.9 F 78 17 135/47 L 96 Nasal Cannula 3 08/05/24 23:01 112/61 08/05/24 22:46 73 08/05/24 22:45 77 08/05/24 22:43 Nasal Cannula 3 08/05/24 22:01 76 18 95 08/05/24 22:00 82 14 96 08/05/24 22:00 79 16 133/51 L 96 Nasal Cannula 3 08/05/24 21:00 Nasal Cannula 3 08/05/24 20:00 82 08/05/24 20:00 98.9 F 84 14 135/52 L 94 L Nasal Cannula 3 08/05/24 19:48 Nasal Cannula 08/05/24 19:00 Nasal Cannula 3 08/05/24 18:48 Nasal Cannula, BiPAP 3 08/05/24 18:48 72 08/05/24 18:48 76 08/05/24 18:01 83 11 L 125/51 L 92 L Nasal Cannula 3 Intake and Output 08/06/24 08/06/24 08/06/24 07:59 15:59 23:59 Intake Total 370 / 1110 490 / 1110 250 / 1110 Output Total 500 / 1600 800 / 1600 300 / 1600 Balance -130 / -490 -310 / -490 -50 / -490 Intake: Intake, Oral Amount 120 / 600 480 / 600 Intake, Other Amount 10 / 10 Intake, Total IV Amount 250 / 500 250 / 500 Doxycycline Hyclate 100 mg In 0 250 / 500 250 / 500 .9 % Sodium Chloride 250 ml @ 166.667 mls/hr IV Q12H [facility] Rx#: [id number] Output: Output, Urine Amount 500 / 1600 800 / 1600 300 / 1600 Other: Intake, Other Source Saline Solution Number of Unmeasured Voids 0 0 0 Weight 110.132 kg Patient Weight 08/06/24 23:59 Weight 110.132 kg Laboratory Results - last 24 hr 08/05/24 17:20: Lactate 2.4 H 08/05/24 19:35: Lactate 1.6 08/06/24 07:45: ABG pH 7.35, ABG pCO2 66.0 H, ABG pO2 60.1 L, ABG HCO3 35.9 H, ABG Total CO2 37.9 H, ABG O2 Saturation 90, ABG Base Excess 10.3 H 08/06/24 07:50: WBC 8.3 D, RBC 3.69 L, Hgb 9.5 L, Hct 34.1 L, MCV 92.4, MCH 25.7 L, MCHC 27.9 L, RDW 17.8 H, Plt Count 177, MPV 10.9 H, Neut % (Auto) 63.8, Lymph % (Auto) 25.0, [place] % (Auto) 10.0 H, Eos % (Auto) 0.2, Baso % (Auto) 0.6, Neut # (Auto) 5.3, Lymph # (Auto) 2.1, [place] # (Auto) 0.8, Eos # (Auto) 0.0, Baso # (Auto) 0.1, Sodium 136, Potassium 3.8, Chloride 93 L, Carbon Dioxide 39 H, Anion Gap 7.8, BUN 24 H D, Creatinine 1.00, Estimated Creat Clear 35, Estimated GFR 53 L, Est GFR ( Amer) 65, Glucose 97, Calcium 8.7, Magnesium 2.1, Total Bilirubin 0.3, AST 19, ALT 11 L, Alkaline Phosphatase 68, Total Protein 5.6 L, Albumin 3.0 L, Globulin 2.6, Albumin/Globulin Ratio 1.2 I & O for Labs for Last 24 Hours: Intake & Output 08/03/24 08/04/24 08/05/24 08/06/24 23:59 23:59 23:59 23:59 Intake Total 1145 / 1265 1110 / 1110 Output Total 800 / 800 1250 / 1250 1600 / 1600 Balance -800 / -560 -105 / 15 -490 / -490 Weight 107.303 kg 111.039 kg 110.132 kg Microbiology Reports for the Last 24 Hours: Microbiology 08/04/24 16:34 Nose - Nasal MRSA Culture - Final Negative 08/04/24 21:35 Sputum - Expectorated Sputum Gram Stain - Final 08/04/24 21:35 Sputum - Expectorated Sputum Sputum Culture - Preliminary Constitutional: Present no acute distress, morbidly obese, chronically ill appearing and cooperative Head: Present atraumatic and normocephalic ENT: Present normal exam Respiratory: Present prolonged expiratory phase, crackles (bases) and diminished air movement; Absent rhonchi or wheezes Cardiac: Present Reg Rate and Rhythm GI: Present soft and normal bowel sounds; Absent distention or tenderness Extremities: Present normal inspection, full ROM and edema (2+ to knees) Skin: Present intact and pallor; Absent erythema Neuro: Present Grossly Intact, alert, awake, oriented x 3 and moves all extremities Assessment and Plan *Assessment and plan (1) Acute hypercapnic respiratory failure: Status: Acute Category: Medical Code(s): J96.02 - Acute respiratory failure with hypercapnia (2) Atrial fibrillation with rapid ventricular response: Status: Acute Category: Medical Code(s): I48.91 - Unspecified atrial fibrillation (3) Acute on chronic heart failure with preserved ejection fraction (HFpEF): Status: Acute Category: Medical Code(s): I50.33 - Acute on chronic diastolic (congestive) heart failure (4) CHF exacerbation: Status: Acute Qualifiers: Heart failure type: systolic Qualified Code(s): I50.23 - Acute on chronic systolic (congestive) heart failure Category: Medical Code(s): I50.9 - Heart failure, unspecified (5) COPD exacerbation: Status: Acute Category: Medical Code(s): J44.1 - Chronic obstructive pulmonary disease with (acute) exacerbation (6) Difficulty in walking: Status: Acute Category: Medical Code(s): R26.2 - Difficulty in walking, not elsewhere classified Plan Patito Garcia is an 79-year-old female with a medical history significant for COPD on home O2, hypertension, pulmonary embolism, hypertension, dementia, anxiety/depression, hypothyroidism who presents with shortness of breath and fatigue. Found to be hypercapnic. Initiated on BiPAP in the ED. Discussed case with ER physician, request admission for further management of hypercapnic respiratory failure. I admitted to the stepdown unit for further treatment. Pulmonology consulted to assist with care. Mentation back to baseline. Went without BiPAP last night, had an increase in pCO2 this morning on just her nasal cannula. Anticipate discharge tomorrow with home BiPAP. Problems addressed as follows: #Chronic hypoxic, hypercapnic respiratory failure #COPD exacerbation -Initiated on BiPAP due to hypercapnia with pCO2 of 90 and pH of 7.19. Wore baseline 2 L nasal cannula overnight. Pulse ox obtained. ABG this morning with pH 7.35, pCO2 increased to 66. Would benefit from BiPAP at discharge. - Pulmonology to reevaluate in the morning. Anticipate discharge tomorrow -Resume BiPAP this evening. - Continue doxycycline 100 mg twice daily -Continue Xopenex and lev albuterol every 6 hours scheduled. Continue Pulmicort twice daily - Continue methylprednisolone 40 mg IV daily - Continue supplemental oxygen as needed, currently on 2 L. Goal sats greater 90%. - White count normal 8.3, CBC, CMP, magnesium ordered for the morning - Kidney function at baseline with BUN 24, creatinine 1 point #Afib # Acute on chronic HFpEF - In A-fib on arrival, rate controlled. Currently on amiodarone 400 mg twice daily, will continue at this time - Recently evaluated by cardiology within the past 2 months. Had left heart cath performed with 3 drug-eluting stents placed in left circumflex and LAD. - Holding aspirin, continue Eliquis 5 mg twice daily, continue Plavix 75 mg daily. ? ECHO shows normal LV systolic function obtained in May per my review of chart - Continue Lasix 40 mg IV twice daily. -2 L since admission #Falls at home #Physical deconditioning - PT/OT consulted, appreciate recommendations. Previously recommended SNF placement at last admission. Patient and family adamant about going home #Chronic pulmonary embolism: Eliquis. #Hypertension: Holding blood pressure medication at this time, will evaluate home regimen and consider resuming in the morning. Patient normotensive at 128/48 #Dementia: resumed home donepezil and memantine #Anxiety/depression: Resumed home buspirone, duloxetine. #Hypothyroidism: Resumed home levothyroxine 125 mcg. TSH 0.16 earlier this year Obesity complicates all aspects of her care. Concern for obesity hypoventilation component to her respiratory failure. Full code Eliquis twice daily Cardiac diet
--- NOTE | 2024-08-06 17:52 | PC.NURSE ---
PT LEFT THE ICU WITH MED SURG STAFF AND THIS RN TO TRANSFER TO ROOM 210 ON MED [facility]G
--- NOTE | 2024-08-06 17:55 | PC.NURSE ---
Pt arrived to med/surg floor @ this time
[2024-08-06] MEDS: KETOROLAC 30MG/ML VIAL 15 MG IV (21:47)
[2024-08-06] MEDS: IRBESARTAN 75MG TABLET 37.5 MG PO (21:47)
[2024-08-07] VITALS (12 sets, daily range): BP systolic 121–159; BP diastolic 46–78; PULSE 60–90; RESP 18–24; TEMP 36.7–36.9; O2SAT 92–100; BMI 43.0
[2024-08-07] MEDS: IPRATROPIUM BROMIDE 0.5 MG/2.5ML SOLUTION IH ×6 (02:14→22:07)
[2024-08-07] MEDS: LEVALBUTEROL 1.25MG/3ML NEB 1.25 MG IH ×6 (02:14→22:07)
--- NOTE | 2024-08-07 02:18 | PC.NURSE ---
Patient wore bipap almost hour and then refused to continue
[2024-08-07] MEDS: DOXYCYCLINE HYCLATE 100 MG in 0.9 % SODIUM CHLORIDE 250 ML 166.667 MG IV ×2 (04:00→17:16)
[2024-08-07] MEDS: BUDESONIDE 0.5MG/2ML NEB 0.5 MG IH ×2 (05:49→18:47)
--- NOTE | 2024-08-07 06:18 | PC.NURSE ---
Pt frequently sought out staff. Pt wore bipap tonight for about an hour, then asked for it to be taken off. v/s, ox4, daughter at bedside. Pt is on 2LNC satting in 90's. No acute events to report. Plan of care ongoing.
[2024-08-07] MEDS: LEVOTHYROXINE 125MCG (0.125MG) TAB 125 MCG PO (06:36)
[2024-08-07 06:46] LABS: Hematocrit 33.8 % (37.0-47.0); Hemoglobin 10.2 g/dL (12.2-16.2); Immature Granulocytes % 0.3 %; Mean Corpuscular HGB Conc 30.2 g/dL (31.8-35.4); Mean Corpuscular Hemoglobin 27.0 pg (27.0-31.2); Mean Corpuscular Volume 89.4 fl (81-99); Nucleated Red Blood Cells % 0 %; Platelet Count 185 K/mm3 (142-424); Red Blood Count 3.78 M/mm3 (4.20-5.40); Red Cell Distribution Width-SD 59.0 fL; White Blood Count 10.0 K/mm3 (4.8-10.8)
[2024-08-07 06:47] LABS: Albumin Level 3.4 g/dl (3.5-5.0); Chloride 90 mmol/L (98-107); Potassium 4.0 mmoL/L (3.5-5.1); Sodium 134 mmol/L (136-145)
[2024-08-07 06:50] LABS: Alanine Aminotransferase 12 U/L (12-78); Albumin/Globulin Ratio 1.4 (1.1-1.8); Alkaline Phosphatase 72 U/L (38-126); Anion Gap 9.0 mEq/L (5-15); Aspartate Amino Transferase 26 U/L (14-36); Bilirubin,Total 0.3 mg/dl (0.2-1.3); Blood Urea Nitrogen 34 mg/dl (7-17); Carbon Dioxide 39 mmol/L (22.0-30.0); Creatinine Clearance Estimated 32 mL/min (50-200); Creatinine,Serum 1.10 mg/dl (0.52-1.04); Estimated Glomerular Filt Rate 48 ml/min (>60); GFR (African American) 58 ML/MIN (>60); Globulin 2.5 g/dL (1.3-3.2); Total Protein,Serum 5.9 g/dl (6.3-8.2)
[2024-08-07 06:51] LABS: Calcium 8.3 mg/dl (8.4-10.2); Glucose 88 mg/dl (74-100)
--- NOTE | 2024-08-07 07:48 | P.PN_ITS ---
Subjective *Date: 08/07/24 *Time: 07:48 Medical Exam Vital signs and Labs for Last 24 Hours: Vital Signs Temp Pulse Pulse Resp BP BP Pulse Ox 08/07/24 06:17 08/07/24 05:50 64 08/07/24 05:50 67 08/07/24 05:50 99 08/07/24 05:00 08/07/24 04:00 98.1 F 71 18 159/75 H 97 08/07/24 04:00 70 08/07/24 03:00 08/07/24 02:17 67 08/07/24 02:17 66 08/07/24 01:00 08/07/24 00:00 60 08/07/24 00:00 98.3 F 76 22 138/58 L 96 08/06/24 23:30 08/06/24 23:00 08/06/24 22:18 68 08/06/24 22:17 66 08/06/24 21:00 08/06/24 20:00 08/06/24 20:00 80 08/06/24 20:00 98.2 F 75 18 137/59 L 92 L 08/06/24 18:30 70 08/06/24 18:23 08/06/24 18:16 71 08/06/24 17:00 08/06/24 16:01 97.9 F 71 17 121/47 L 90 L 08/06/24 16:00 90 L 08/06/24 16:00 70 08/06/24 15:00 08/06/24 14:53 66 08/06/24 14:53 66 08/06/24 14:53 91 L 08/06/24 13:00 08/06/24 12:01 98.9 F 71 16 141/43 H 92 L 08/06/24 12:00 70 08/06/24 11:49 91 L 08/06/24 11:00 08/06/24 09:00 08/06/24 08:46 95 08/06/24 08:01 69 22 102/37 L 94 L 08/06/24 08:00 70 O2 Del Method O2 Flow Rate FiO2 08/07/24 06:17 Nasal Cannula 2 08/07/24 05:50 08/07/24 05:50 08/07/24 05:50 Nasal Cannula 4 08/07/24 05:00 Room Air 2 08/07/24 04:00 Nasal Cannula 4 08/07/24 04:00 08/07/24 03:00 Nasal Cannula 2 08/07/24 02:17 08/07/24 02:17 08/07/24 01:00 Nasal Cannula 2 08/07/24 00:00 08/07/24 00:00 BiPAP 08/06/24 23:30 30 08/06/24 23:00 Nasal Cannula 2 08/06/24 22:18 08/06/24 22:17 08/06/24 21:00 Nasal Cannula 2 08/06/24 20:00 Nasal Cannula 2 08/06/24 20:00 08/06/24 20:00 Nasal Cannula 1 08/06/24 18:30 08/06/24 18:23 Nasal Cannula 2 08/06/24 18:16 08/06/24 17:00 Nasal Cannula 2 08/06/24 16:01 Nasal Cannula 2 08/06/24 16:00 Nasal Cannula 2 08/06/24 16:00 08/06/24 15:00 Nasal Cannula 2 08/06/24 14:53 08/06/24 14:53 08/06/24 14:53 Nasal Cannula 2 08/06/24 13:00 Nasal Cannula 2 08/06/24 12:01 Nasal Cannula 2 08/06/24 12:00 08/06/24 11:49 Nasal Cannula 2 08/06/24 11:00 Nasal Cannula 2 08/06/24 09:00 Nasal Cannula 2 08/06/24 08:46 Nasal Cannula 2 08/06/24 08:01 Nasal Cannula 2 08/06/24 08:00 Intake and Output 08/06/24 08/06/24 08/07/24 15:59 23:59 07:59 Intake Total 490 / 1590 250 / 1590 480 / 480 Output Total 800 / 1600 300 / 1600 200 / 200 Balance -310 / -10 -50 / -10 280 / 280 Intake: Intake, Oral Amount 480 / 1080 480 / 480 Intake, Other Amount 10 / 10 Intake, Total IV Amount 250 / 500 Doxycycline Hyclate 100 mg In 0 250 / 500 .9 % Sodium Chloride 250 ml @ 166.667 mls/hr IV Q12H [facility] Rx#: [id number] Output: Output, Urine Amount 800 / 1600 300 / 1600 200 / 200 Other: Intake, Other Source Saline Solution Number of Unmeasured Voids 0 1 Weight 110.132 kg 110.135 kg Patient Weight 08/07/24 23:59 Weight 110.135 kg Laboratory Results - last 24 hr 08/06/24 07:45: ABG pH 7.35, ABG pCO2 66.0 H, ABG pO2 60.1 L, ABG HCO3 35.9 H, ABG Total CO2 37.9 H, ABG O2 Saturation 90, ABG Base Excess 10.3 H 08/06/24 07:50: WBC 8.3 D, RBC 3.69 L, Hgb 9.5 L, Hct 34.1 L, MCV 92.4, MCH 25.7 L, MCHC 27.9 L, RDW 17.8 H, Plt Count 177, MPV 10.9 H, Neut % (Auto) 63.8, Lymph % (Auto) 25.0, [place] % (Auto) 10.0 H, Eos % (Auto) 0.2, Baso % (Auto) 0.6, Neut # (Auto) 5.3, Lymph # (Auto) 2.1, [place] # (Auto) 0.8, Eos # (Auto) 0.0, Baso # (Auto) 0.1, Sodium 136, Potassium 3.8, Chloride 93 L, Carbon Dioxide 39 H, Anion Gap 7.8, BUN 24 H D, Creatinine 1.00, Estimated Creat Clear 35, Estimated GFR 53 L, Est GFR ( Amer) 65, Glucose 97, Calcium 8.7, Magnesium 2.1, To natalie Bilirubin 0.3, AST 19, ALT 11 L, Alkaline Phosphatase 68, Total Protein 5.6 L, Albumin 3.0 L, Globulin 2.6, Albumin/Globulin Ratio 1.2 08/07/24 06:17: WBC 10.0, RBC 3.78 L, Hgb 10.2 L, Hct 33.8 L, MCV 89.4, MCH 27.0, MCHC 30.2 L, RDW 18.1 H, Plt Count 185, MPV 10.8 H, Neut % (Auto) 58.5, Lymph % (Auto) 29.4, [place] % (Auto) 10.8 H, Eos % (Auto) 0.4, Baso % (Auto) 0.6, Neut # (Auto) 5.8, Lymph # (Auto) 2.9, [place] # (Auto) 1.1 H, Eos # (Auto) 0.0, Baso # (Auto) 0.1, Sodium 134 L, Potassium 4.0, Chloride 90 L, Carbon Dioxide 39 H, Anion Gap 9.0, BUN 34 H D, Creatinine 1.10 H, Estimated Creat Clear 32, Estimated GFR 48 L, Est GFR ( Amer) 58 L, Glucose 88, Calcium 8.3 L, Total Bilirubin 0.3, AST 26 D, ALT 12, Alkaline Phosphatase 72, Total Protein 5.9 L, Albumin 3.4 L D, Globulin 2.5, Albumin/Globulin Ratio 1.4 I & O for Labs for Last 24 Hours: Intake & Output 08/04/24 08/05/24 08/06/24 08/07/24 23:59 23:59 23:59 23:59 Intake Total 1145 / 1265 1110 / 1590 480 / 480 Output Total 800 / 800 1250 / 1250 1600 / 1600 200 / 200 Balance -800 / -560 -105 / 15 -490 / -10 280 / 280 Weight 107.303 kg 111.039 kg 110.132 kg 110.135 kg Microbiology Reports for the Last 24 Hours: Microbiology 08/04/24 21:35 Sputum - Expectorated Sputum Gram Stain - Final 08/04/24 21:35 Sputum - Expectorated Sputum Sputum Culture - Final 08/04/24 14:51 Urine,Clean Catch Urine Culture - Final NO GROWTH AFTER 48 HOURS 08/04/24 16:34 Nose - Nasal MRSA Culture - Final Negative The patient's infection will respond to the chosen ABx?: Yes (SPUTUM = NORMAL OSCAR, AFEBRILE OVER 24 HR) Is the patient receiving the right drug, dose, and route?: Yes Could a more targeted ABx be ordered?: No How long ABx needed (days)?: 7 (COPD EXACERBATION)
[2024-08-07] MEDS: MEMANTINE 10MG TABLET 5 MG PO ×2 (08:11→20:14)
[2024-08-07] MEDS: BUSPIRONE HCL 10 MG TABLET 30 MG PO ×2 (08:11→20:13)
[2024-08-07] MEDS: AMIODARONE 200MG TABLET 400 MG PO ×2 (08:11→20:13)
[2024-08-07] MEDS: FUROSEMIDE 40MG/4ML VIAL 40 MG IV ×2 (08:11→17:16)
[2024-08-07] MEDS: METHYLPREDNISOLONE SOD SUCC 40MG VIAL 40 MG IV (08:11)
[2024-08-07] MEDS: CLOPIDOGREL 75MG TAB 75 MG PO (08:11)
[2024-08-07] MEDS: DOCUSATE SODIUM 100 MG CAPSULE PO ×2 (08:12→20:13)
[2024-08-07] MEDS: APIXABAN 5MG TABLET 5 MG PO ×2 (08:12→20:14)
--- NOTE | 2024-08-07 08:24 | SW/DCPLANNER ---
Addendum entered by [facility] 08/09/24 11:47: Patient will discharge to [facility] today. Addendum entered by [facility] 08/09/24 07:40: Per Guillaume patient has been approved SNF level of care. I have updated MD. Addendum entered by [facility] 08/08/24 12:52: Per Guillaume auth is still pending at this time. Addendum entered by [facility] 08/07/24 11:44: Per Guillaume w/ [facility] they can accept this patient, auth will be started today and bi pap will be delivered to [facility] tomorrow morning. I will update patient, family and MD. Addendum entered by [facility] 08/07/24 10:39: Currently no short term beds at [facility]. I will continue to follow up w/ [facility] and [place]. Per MD patient is medically stable for discharge. Original Note: I spoke w/ patient and granddaughter regarding plans once medically stable for discharge. PT/OT evaluated patient and recommended SNF level of care. Patient is agreeable to placement at this time and prefers [facility], [facility] or [facility]. I will fax patient information to facilities this AM and follow up. Discharge date is unknown at this time.
--- NOTE | 2024-08-07 09:32 | EXP.PULM.PN ---
Subjective *Date: 08/07/24 *Time: 11:46 Interval history: No acute respiratory events over the weekend Pulmonology Exam Inpatient Vital signs and Labs for Last 24 Hours: Temp Pulse Resp BP Pulse Ox O2 Del Method O2 Flow Rate 98.3 F 62 22 144/46 H 100 Nasal Cannula 2 08/07/24 08:00 08/07/24 08:00 08/07/24 08:00 08/07/24 08:00 08/07/24 08:00 08/07/24 08:00 08/07/24 08:00 FiO2 30 08/06/24 23:30 Laboratory Results - last 24 hr 08/07/24 06:17: WBC 10.0, RBC 3.78 L, Hgb 10.2 L, Hct 33.8 L, MCV 89.4, MCH 27.0, MCHC 30.2 L, RDW 18.1 H, Plt Count 185, MPV 10.8 H, Neut % (Auto) 58.5, Lymph % (Auto) 29.4, [place] % (Auto) 10.8 H, Eos % (Auto) 0.4, Baso % (Auto) 0.6, Neut # (Auto) 5.8, Lymph # (Auto) 2.9, [place] # (Auto) 1.1 H, Eos # (Auto) 0.0, Baso # (Auto) 0.1, Sodium 134 L, Potassium 4.0, Chloride 90 L, Carbon Dioxide 39 H, Anion Gap 9.0, BUN 34 H D, Creatinine 1.10 H, Estimated Creat Clear 32, Estimated GFR 48 L, Est GFR ( Amer) 58 L, Glucose 88, Calcium 8.3 L, Total Bilirubin 0.3, AST 26 D, ALT 12, Alkaline Phosphatase 72, Total Protein 5.9 L, Albumin 3.4 L D, Globulin 2.5, Albumin/Globulin Ratio 1.4 Temp Pulse Resp BP Pulse Ox O2 Del Method O2 Flow Rate 97.8 F 53 L 15 90/41 L 99 BiPAP 3 08/04/24 15:20 08/04/24 15:20 08/04/24 15:20 08/04/24 15:20 08/04/24 15:14 08/04/24 15:20 08/04/24 13:31 FiO2 35 08/04/24 14:10 Laboratory Results - last 24 hr 08/04/24 13:11: WBC 6.1, RBC 3.65 L, Hgb 9.8 L, Hct 35.2 L, MCV 96.4, MCH 26.8 L, MCHC 27.8 L, RDW 17.1, Plt Count 175, MPV 10.4, Neut % (Auto) 56.0, Lymph % (Auto) 29.3, [place] % (Auto) 9.3, Eos % (Auto) 4.3, Baso % (Auto) 0.8, Neut # (Auto) 3.4, Lymph # (Auto) 1.8, [place] # (Auto) 0.6, Eos # (Auto) 0.3, Baso # (Auto) 0.1, Sodium 136, Potassium 4.5, Chloride 91 L, Carbon Dioxide 43 H*, Anion Gap 6.5, BUN 10, Creatinine 0.80, Estimated Creat Clear 37, Estimated GFR 69, Est GFR ( Amer) 84, Glucose 106 H, Calcium 8.8, Magnesium 2.3, Total Bilirubin 0.2, AST 23, ALT 12, Alkaline Phosphatase 75, Troponin I 0.02, NT-Pro-B Natriuret Pep 1090 H, Total Protein 6.1 L, Albumin 3.3 L, Globulin 2.8, Albumin/Globulin Ratio 1.2 08/04/24 13:33: VBG pH 7.17 L, VBG pCO2 93.0 H, VBG pO2 54.8 H, VBG HCO3 32.9 H, VBG Total CO2 35.8 H, VBG O2 Saturation 87.0 H, VBG Base Excess 4.4 H, VBG Lactic Acid 1.0 08/04/24 14:51: Urine Color Yellow, Urine Appearance Clear, Urine pH 6.0, Ur Specific [place] 1.020, Urine Protein Negative, Urine Glucose (UA) 3+, Urine Ketones Negative, Urine Blood Negative, Urine Nitrate Negative, Urine Bilirubin Negative, Urine Urobilinogen 1.0, Ur Leukocyte Esterase Negative, Urine RBC 3-5, Urine WBC 3-5, Ur Squamous Epith Cells 20-50, Calcium Oxalate Crystal 1+, Urine Bacteria 3+, Urine Yeast 1+ I & O for Labs for Last 24 Hours: Intake & Output 08/04/24 08/05/24 08/06/24 08/07/24 23:59 23:59 23:59 23:59 Intake Total 1145 / 1265 1110 / 1590 720 / 720 Output Total 800 / 800 1250 / 1250 1600 / 1600 350 / 350 Balance -800 / -560 -105 / 15 -490 / -10 370 / 370 Weight 236 lb 9 oz 244 lb 12.8 oz 242 lb 12.792 oz 242 lb 12.898 oz Intake & Output 08/01/24 08/02/24 08/03/24 08/04/24 23:59 23:59 23:59 23:59 Weight 242 lb Microbiology Reports for the Last 24 Hours: Microbiology 08/04/24 21:35 Sputum - Expectorated Sputum Gram Stain - Final 08/04/24 21:35 Sputum - Expectorated Sputum Sputum Culture - Final 08/04/24 14:51 Urine,Clean Catch Urine Culture - Final NO GROWTH AFTER 48 HOURS 08/04/24 16:34 Nose - Nasal MRSA Culture - Final Negative Constitutional: Present severe distress Head: Present normocephalic and atraumatic ENT: Present normal exam, normal oropharynx and mucous membranes moist Neck: Present normal inspection and full ROM Respiratory: Present respiratory distress and able to speak in complete sentences; Absent prolonged expiratory phase or wheezes Cardiac: Present S1/S2, Tachycardia and radial pulses present GI: Present soft and distention; Absent tenderness or guarding Rectal (female): Present deferred (female): Present deferred Skin: Present intact; Absent cyanosis or jaundice Neuro: Present alert, awake and oriented x 3 Extremities: Present normal inspection; Absent clubbing or cyanosis Psychiatric: Present normal affect and cooperative Assessment and Plan *Assessment and plan (1) Acute exacerbation of chronic obstructive pulmonary disease: Status: Acute Category: Medical Code(s): J44.1 - Chronic obstructive pulmonary disease with (acute) exacerbation (2) Acute on chronic respiratory failure with hypoxia and hypercapnia: Status: Acute Category: Medical Code(s): J96.21 - Acute and chronic respiratory failure with hypoxia; J96.22 - Acute and chronic respiratory failure with hypercapnia Plan Ms. Garcia is a 79-year-old female COPD, chronic hypoxic hypercarbic respiratory failure on 2 to 3 L nasal cannula, recently seen in the hospital for presumed pneumonia, completed 3-day course of levofloxacin at discharge from early July. Worsening respiratory found to be in hypercarbic respiratory failure and pulmonary was called for further evaluation and management. Patient admits not being compliant with her inhaler / Neb therapy upon her recent discharge. Denies any known sick contacts Chest x-ray from this morning improving from prior with respect to the left lower lobe airspace disease. Interstitial prominence. Right lower lobe infiltrates noted. Afebrile. Hemodynamically stable. No evidence of leukocytosis. Repeat VBG improving hypercarbic respiratory failure. On BiPAP. Alert and oriented x 3, responding appropriate verbal commands. Wheezing noted on auscultation. Interval update: Current respiratory failure improved after IV therapy. Has been off NIV therapy since then. Blood gas from 08/06/2024 off NIV therapy still showed chronic hypercarbic respiratory failure the pH is 7.35 and ESR 66.0, worsened from the day prior with a pH of 7.52 pCO2 47.2 Comprehensive respiratory viral PCR panel and nasal MRSA PCR. Procalcitonin within normal limits at 0.05 Plan: Follow-up with overnight oximetry testing to determine patient qualification for NIV therapy for her recurrent hypercarbic respiratory Wean to Trelegy 100 inhaler along with DuoNebs 4 times daily. Doxycycline 100 mg twice daily IV, continue to complete a total of 5-day course. Can be weaned to oral upon discharge Wean steroids to prednisone 40 mg daily to complete a total of 5-day course Thank you for involving pulmonary in this patient care. Will continue to follow.
--- NOTE | 2024-08-07 10:26 | HMH.OTEV ---
OT Inpatient Evaluation Rehab OT IP Evaluation Start: 08/04/24 17:26 Freq: ONCE Status: Active Protocol: Document 08/07/24 10:05 LAVONNE (Rec: 08/07/24 10:25 LAVONNE [id number]) Rehab OT IP Assessment Subjective History Ms. Garcia is an 79-year-old female with history of chronic hypoxemic respiratory failure, COPD, hypertension, HFpEF, obesity, tremors. She presented with confusion and worsening shortness of breath over the past day.. Family is at bedside and helps answer questions. On arrival to the ED, patient hypoxic on initial presentation. Blood gas showed CO2 greater than 90 on VBG with pH of 7.2. Initiated on BiPAP. Chest imaging showing pulmonary edema bilaterally with elevated BNP. Medicine consulted for admission and further management of COPD exacerbation and acute on chronic HFpEF along with acute on chronic hypoxemic and hypercapnic respiratory failure Evaluation after arriving to the ICU, patient is alert and oriented x 2. History supplemented by family at bedside. Tolerating BiPAP, pulling volumes of 3-400. States she is feeling hungry. Explained that she cannot eat while wearing BiPAP. Also has concern for UTI. Labs showed normal white count 6.1. Kidney function at baseline with creatinine 0.8, BUN 10. BNP elevated above thousand. Denies chest pain, vomiting. Is complaining of back pain however. Patient lives with son and two grand-daughters. One grand-daughter stays home with her 31/08. Patient requires 1 assist for ADLs and fx'l mobility. Uses a RW and cane for mobility. 2.5L of 02 at home. HH services 2x/wk. Subjective I need help at home. My family is there. Instructed Patient on proper hand and foot placement to complete bed mobility from supine->sit @ EOB->stand requiring Min A. Patient stood x2 with usage of RW. No LOB noted. Assisted patient back to bed in upright position with needing mod A. Objective Patient Orientation Person,Place,Name,Age Right Upper WFL Extremity Gross ROM Left Upper Extremity WFL Gross ROM Bed Mobility bed mobility - supine/sit Assist Level Minimal x 1 (25% assist) Transfer Training Sit/Stand/Step Transfer Assist Level Minimal x 1 (25% assist) Chair Transfer Minimal x 1 (25% assist) Ability Chair Transfer Sit to/from Ambulatory Technique Chair Transfer Rolling Walker Assistive Devices Lower Body Dressing Maximum Assistance Ability Rehab OT IP prob,goals,plan Problems Date of Evaluation: 08/07/24 OT IP Problems Bed Mobility,Transfers,Balance,Self care,Safety Rehab Potential Rehab Potential Good Equipment Needs Assistive Devices Rolling / Wheeled Walker Plan OT intervention Plan Bed Mobility,Transfers,Balance,Self care,Safety, Therapeutic Exercise OT Plan Frequency Daily Duration LOS Discharge Goals Bed Mobility Ability Assistance x1 Sit to Stand Chair Contact Guard/Hand Hold Transfer Ability Chair Transfer Contact Guard/Hand Hold Ability Chair Transfer Sit to/from Ambulatory Technique Chair Transfer Rolling Walker Assistive Devices Discharge Plan OT Discharge Plan Recommending patient to return back home with family with HH services after medical d/c. Patient will continue skilled OT services while here at [facility]. Eval Complexity Eval Charge Codes 45590 - Low Complexity PHYSICIAN CERTIFICATION: I certify the specified therapy services for Patito Garcia are required, authorized, and reviewed every 30 days.
--- NOTE | 2024-08-07 13:50 | EXP.ACUTE.PN ---
Subjective *Date: 08/07/24 *Time: 13:50 Medical Exam Vital signs and Labs for Last 24 Hours: Vital Signs Temp Pulse Pulse Resp BP BP Pulse Ox 08/07/24 12:00 98.0 F 71 24 142/56 H 93 L 08/07/24 11:00 08/07/24 10:01 97 08/07/24 10:01 88 08/07/24 10:01 89 08/07/24 09:00 08/07/24 08:00 63 08/07/24 08:00 08/07/24 08:00 98.3 F 62 22 144/46 H 100 08/07/24 06:17 08/07/24 05:50 64 08/07/24 05:50 67 08/07/24 05:50 99 08/07/24 05:00 08/07/24 04:00 98.1 F 71 18 159/75 H 97 08/07/24 04:00 70 08/07/24 03:00 08/07/24 02:17 67 08/07/24 02:17 66 08/07/24 01:00 08/07/24 00:00 60 08/07/24 00:00 98.3 F 76 22 138/58 L 96 08/06/24 23:30 08/06/24 23:00 08/06/24 22:18 68 08/06/24 22:17 66 08/06/24 21:00 08/06/24 20:00 08/06/24 20:00 80 08/06/24 20:00 98.2 F 75 18 137/59 L 92 L 08/06/24 18:30 70 08/06/24 18:23 08/06/24 18:16 71 08/06/24 17:00 08/06/24 16:01 97.9 F 71 17 121/47 L 90 L 08/06/24 16:00 90 L 08/06/24 16:00 70 08/06/24 15:00 08/06/24 14:53 66 08/06/24 14:53 66 08/06/24 14:53 91 L O2 Del Method O2 Flow Rate FiO2 08/07/24 12:00 Nasal Cannula 2 08/07/24 11:00 Nasal Cannula 2 08/07/24 10:01 Nasal Cannula 2 08/07/24 10:01 08/07/24 10:01 08/07/24 09:00 Nasal Cannula 2 08/07/24 08:00 08/07/24 08:00 Nasal Cannula 2 08/07/24 08:00 Nasal Cannula 2 08/07/24 06:17 Nasal Cannula 2 08/07/24 05:50 08/07/24 05:50 08/07/24 05:50 Nasal Cannula 4 08/07/24 05:00 Room Air 2 08/07/24 04:00 Nasal Cannula 4 08/07/24 04:00 08/07/24 03:00 Nasal Cannula 2 08/07/24 02:17 08/07/24 02:17 08/07/24 01:00 Nasal Cannula 2 08/07/24 00:00 08/07/24 00:00 BiPAP 08/06/24 23:30 30 08/06/24 23:00 Nasal Cannula 2 08/06/24 22:18 08/06/24 22:17 08/06/24 21:00 Nasal Cannula 2 08/06/24 20:00 Nasal Cannula 2 08/06/24 20:00 08/06/24 20:00 Nasal Cannula 1 08/06/24 18:30 08/06/24 18:23 Nasal Cannula 2 08/06/24 18:16 08/06/24 17:00 Nasal Cannula 2 08/06/24 16:01 Nasal Cannula 2 08/06/24 16:00 Nasal Cannula 2 08/06/24 16:00 08/06/24 15:00 Nasal Cannula 2 08/06/24 14:53 08/06/24 14:53 08/06/24 14:53 Nasal Cannula 2 Intake and Output 08/06/24 08/07/24 08/07/24 23:59 07:59 15:59 Intake Total 250 / 1590 480 / 720 240 / 720 Output Total 300 / 1600 200 / 1050 850 / 1050 Balance -50 / -10 280 / -330 -610 / -330 Intake: Intake, Oral Amount 480 / 720 240 / 720 Intake, Total IV Amount 250 / 500 Doxycycline Hyclate 100 mg In 0 250 / 500 .9 % Sodium Chloride 250 ml @ 166.667 mls/hr IV Q12H [facility] Rx#: [id number] Output: Output, Urine Amount 300 / 1600 200 / 1050 850 / 1050 Other: Number of Unmeasured Voids 1 0 Weight 110.132 kg 110.135 kg Patient Weight 08/07/24 23:59 Weight 110.135 kg Laboratory Results - last 24 hr 08/07/24 06:17: WBC 10.0, RBC 3.78 L, Hgb 10.2 L, Hct 33.8 L, MCV 89.4, MCH 27.0, MCHC 30.2 L, RDW 18.1 H, Plt Count 185, MPV 10.8 H, Neut % (Auto) 58.5, Lymph % (Auto) 29.4, [place] % (Auto) 10.8 H, Eos % (Auto) 0.4, Baso % (Auto) 0.6, Neut # (Auto) 5.8, Lymph # (Auto) 2.9, [place] # (Auto) 1.1 H, Eos # (Auto) 0.0, Baso # (Auto) 0.1, Sodium 134 L, Potassium 4.0, Chloride 90 L, Carbon Dioxide 39 H, Anion Gap 9.0, BUN 34 H D, Creatinine 1.10 H, Estimated Creat Clear 32, Estimated GFR 48 L, Est GFR ( Amer) 58 L, Glucose 88, Calcium 8.3 L, Total Bilirubin 0.3, AST 26 D, ALT 12, Alkaline Phosphatase 72, Total Protein 5.9 L, Albumin 3.4 L D, Globulin 2.5, Albumin/Globulin Ratio 1.4 I & O for Labs for Last 24 Hours: Intake & Output 08/04/24 08/05/24 08/06/24 08/07/24 23:59 23:59 23:59 23:59 Intake Total 1145 / 1265 1110 / 1590 720 / 720 Output Total 800 / 800 1250 / 1250 1600 / 1600 1050 / 1050 Balance -800 / -560 -105 / 15 -490 / -10 -330 / -330 Weight 107.303 kg 111.039 kg 110.132 kg 110.135 kg Microbiology Reports for the Last 24 Hours: Microbiology 08/04/24 21:35 Sputum - Expectorated Sputum Gram Stain - Final 08/04/24 21:35 Sputum - Expectorated Sputum Sputum Culture - Final 08/04/24 14:51 Urine,Clean Catch Urine Culture - Final NO GROWTH AFTER 48 HOURS Constitutional: Present no acute distress, morbidly obese, chronically ill appearing and cooperative Head: Present atraumatic and normocephalic ENT: Present normal exam Respiratory: Present prolonged expiratory phase, crackles (bases) and diminished air movement; Absent rhonchi or wheezes Cardiac: Present Reg Rate and Rhythm GI: Present soft and normal bowel sounds; Absent distention or tenderness Extremities: Present normal inspection, full ROM and edema (2+ to knees) Skin: Present intact and pallor; Absent erythema Neuro: Present Grossly Intact, alert, awake, oriented x 3 and moves all extremities Assessment and Plan *Assessment and plan (1) Acute hypercapnic respiratory failure: Status: Acute Category: Medical Code(s): J96.02 - Acute respiratory failure with hypercapnia (2) Atrial fibrillation with rapid ventricular response: Status: Acute Category: Medical Code(s): I48.91 - Unspecified atrial fibrillation (3) Acute on chronic heart failure with preserved ejection fraction (HFpEF): Status: Acute Category: Medical Code(s): I50.33 - Acute on chronic diastolic (congestive) heart failure (4) CHF exacerbation: Status: Acute Qualifiers: Heart failure type: systolic Qualified Code(s): I50.23 - Acute on chronic systolic (congestive) heart failure Category: Medical Code(s): I50.9 - Heart failure, unspecified (5) COPD exacerbation: Status: Acute Category: Medical Code(s): J44.1 - Chronic obstructive pulmonary disease with (acute) exacerbation (6) Difficulty in walking: Status: Acute Category: Medical Code(s): R26.2 - Difficulty in walking, not elsewhere classified Plan Patito Gracia is an 79-year-old female with a medical history significant for COPD on home O2, hypertension, pulmonary embolism, hypertension, dementia, anxiety/depression, hypothyroidism who presents with shortness of breath and fatigue. Found to be hypercapnic. Initiated on BiPAP in the ED. Discussed case with ER physician, request admission for further management of hypercapnic respiratory failure. I admitted to the stepdown unit for further treatment. Pulmonology consulted to assist with care. Mentation remains at baseline. Tolerated BiPAP last night. Needing placement, agreeable this visit. Anticipate discharge in the coming days. Problems addressed as follows: #Chronic hypoxic, hypercapnic respiratory failure #COPD exacerbation -On admission initiated on BiPAP due to hypercapnia with pCO2 of 90 and pH of 7.19. Wore baseline 2 L nasal cannula overnight. Pulse ox obtained. ABG morning of 08/06 with pH 7.35, pCO2 increased to 66. - Discussed case with pulmonology, recommend BiPAP at discharge. Awaiting overnight pulse ox results to assess for qualification due to recurrent hypercarbic respiratory failure. - Transition to Trelegy 100 inhaler, DuoNebs every 6 hours scheduled - Continue BiPAP nightly - Continue doxycycline 100 mg twice daily for total of 5 days - Transition to prednisone 40 mg daily to complete 5 days total - Continue supplemental oxygen as needed, currently on 2 L. Goal sats greater 90%. -White count normal at 10, hemoglobin 10. Lab holiday in the morning #Afib # Acute on chronic HFpEF - In A-fib on arrival, rate controlled. Currently on amiodarone 400 mg twice daily, will continue at this time - Recently evaluated by cardiology within the past 2 months. Had left heart cath performed with 3 drug-eluting stents placed in left circumflex and LAD. - Holding aspirin, continue Eliquis 5 mg twice daily, continue Plavix 75 mg daily. ? ECHO shows normal LV systolic function obtained in May per my review of chart - Continue Lasix 40 mg IV twice daily. Negative volume status since admission. Kidney function stable BUN 34, creatinine 1.1. Potassium 4.0 #Falls at home #Physical deconditioning - PT/OT consulted, recommend placement. Patient open to SNF placement. Social work assisting with referral #Chronic pulmonary embolism: Eliquis. #Hypertension: Holding blood pressure medication at this time, will evaluate home regimen and consider resuming in the morning. Patient normotensive at 142/56 #Dementia: resumed home donepezil and memantine #Anxiety/depression: Resumed home buspirone, duloxetine. #Hypothyroidism: Resumed home levothyroxine 125 mcg. TSH 0.16 earlier this year Obesity complicates all aspects of her care. Concern for obesity hypoventilation component to her respiratory failure. Full code Eliquis twice daily Cardiac diet
[2024-08-07] MEDS: HYDROCODONE/APAP 5/325 MG TABLET 1 TAB PO (20:10)
[2024-08-07] MEDS: IRBESARTAN 75MG TABLET 37.5 MG PO (20:13)
[2024-08-07] MEDS: MELATONIN 5MG TABLET 5 MG PO (21:25)
[2024-08-08] VITALS (13 sets, daily range): BP systolic 108–145; BP diastolic 48–72; PULSE 60–90; RESP 18–20; TEMP 36.6–36.9; O2SAT 91–96; BMI 43.0
[2024-08-08] MEDS: LEVALBUTEROL 1.25MG/3ML NEB 1.25 MG IH ×6 (01:21→21:47)
[2024-08-08] MEDS: IPRATROPIUM BROMIDE 0.5 MG/2.5ML SOLUTION IH ×6 (01:21→21:47)
--- NOTE | 2024-08-08 03:55 | PC.NURSE ---
Patient is alert and oriented x4. Mild periods of forgetfulness noted. She was observed to be resting in bed with eyes closed, respirations even on 2 L of oxygen via nasal cannula, and no apparent distress throughout the majority of the night. BiPAP was refused. Continuous pulse ox is in place, on telemetry. Oxygen saturations have remained > 90% this shift. Breathing treatments, given by RTs, and scheduled medications were administered as appropriately per MAR. Patient has not had any complaints of worsening shortness of breath this shift. [place] was given per MAR for lower back pain relief. One dose of melatonin (new order obtained this shift from Hipolito Pope MD) was given at bedtime as a sleep aid. Upon auscultation of her lungs, diminished sounds were heard. Bowel sounds active. Edema was observed in her bilateral upper/lower extremities. A female purewick remains in place to monitor urinary output, documented accordingly. The patient gets up with moderate assistance during ambulation/transfers. At this time, the patient is resting in bed without any further complaints. No new needs thus far. Call light within reach.
[2024-08-08] MEDS: DOXYCYCLINE HYCLATE 100 MG in 0.9 % SODIUM CHLORIDE 250 ML 166.667 MG IV ×2 (04:53→16:18)
[2024-08-08] MEDS: BUDESONIDE 0.5MG/2ML NEB 0.5 MG IH ×2 (06:07→18:46)
[2024-08-08] MEDS: LEVOTHYROXINE 125MCG (0.125MG) TAB 125 MCG PO (06:30)
--- NOTE | 2024-08-08 08:23 | PC.NURSE ---
Patient was on 1L NC @0800 vitals with o2 sat of 91. ISABEL Peña notified me she put patient up to 2L.
[2024-08-08] MEDS: BUSPIRONE HCL 10 MG TABLET 30 MG PO ×2 (08:38→21:42)
[2024-08-08] MEDS: MEMANTINE 10MG TABLET 5 MG PO ×2 (08:39→21:41)
[2024-08-08] MEDS: AMIODARONE 200MG TABLET 400 MG PO ×2 (08:39→21:42)
[2024-08-08] MEDS: APIXABAN 5MG TABLET 5 MG PO ×2 (08:39→21:41)
[2024-08-08] MEDS: CLOPIDOGREL 75MG TAB 75 MG PO (08:39)
[2024-08-08] MEDS: HYDROCODONE/APAP 5/325 MG TABLET 1 TAB PO (08:40)
[2024-08-08] MEDS: METHYLPREDNISOLONE SOD SUCC 40MG VIAL 40 MG IV (08:40)
[2024-08-08] MEDS: FUROSEMIDE 40MG/4ML VIAL 40 MG IV ×2 (08:40→16:18)
[2024-08-08 09:19] LABS: Magnesium 1.8 mg/dl (1.6-2.3)
--- NOTE | 2024-08-08 18:18 | PC.NURSE ---
pt is A&Ox4. Vital signs stable tolerating 2L NC. Pt with increased work of breathing at times of exertion but denies SOB. Pt states that this is baseline for her. IV abx infused per APR. IV lasix given per APR with adequate urinary output. Plan is for d/c to [facility] when bed is ready. Pt resting supine comfortably in bed with no further needs voiced at this time. Call light within reach.
--- NOTE | 2024-08-08 18:53 | EXP.ACUTE.PN ---
Subjective *Date: 08/08/24 *Time: 23:13 Interval history: Intermittently compliant with BiPAP at night. Stable on 1 L oxygen during the day. No nausea or vomiting. Afebrile. Alert and oriented on exam Medical Exam Vital signs and Labs for Last 24 Hours: Vital Signs Temp Pulse Pulse Pulse Resp BP Pulse Ox 08/08/24 18:50 08/08/24 18:47 79 08/08/24 17:00 08/08/24 16:00 98.4 F 82 20 137/61 93 L 08/08/24 15:00 08/08/24 14:27 86 08/08/24 14:27 89 08/08/24 13:00 08/08/24 12:00 97.9 F 68 20 126/50 L 94 L 08/08/24 11:00 08/08/24 09:25 90 08/08/24 09:25 88 08/08/24 09:25 94 L 08/08/24 09:00 08/08/24 08:00 08/08/24 08:00 98.5 F 64 20 108/48 L 91 L 08/08/24 06:35 08/08/24 06:07 62 08/08/24 06:07 65 08/08/24 06:07 96 08/08/24 05:00 08/08/24 04:00 60 08/08/24 04:00 98.3 F 65 18 145/53 H 94 L 08/08/24 03:00 08/08/24 01:22 77 08/08/24 01:22 75 08/08/24 01:00 08/08/24 00:00 70 08/08/24 00:00 98.4 F 71 19 137/53 L 95 08/07/24 23:00 08/07/24 22:07 70 08/07/24 22:07 73 08/07/24 21:00 08/07/24 20:00 84 08/07/24 20:00 80 08/07/24 20:00 98.4 F 84 18 146/78 H 95 O2 Del Method O2 Flow Rate 08/08/24 18:50 Nasal Cannula 2 08/08/24 18:47 08/08/24 17:00 Nasal Cannula 2 08/08/24 16:00 Nasal Cannula 2 08/08/24 15:00 Nasal Cannula 2 08/08/24 14:27 08/08/24 14:27 08/08/24 13:00 Nasal Cannula 2 08/08/24 12:00 Nasal Cannula 2 08/08/24 11:00 Nasal Cannula 2 08/08/24 09:25 08/08/24 09:25 08/08/24 09:25 Nasal Cannula 2 08/08/24 09:00 Nasal Cannula 2 08/08/24 08:00 Nasal Cannula 2 08/08/24 08:00 Nasal Cannula 1 08/08/24 06:35 Nasal Cannula 2 08/08/24 06:07 08/08/24 06:07 08/08/24 06:07 Nasal Cannula 1 08/08/24 05:00 Nasal Cannula 2 08/08/24 04:00 08/08/24 04:00 Nasal Cannula 2 08/08/24 03:00 Nasal Cannula 2 08/08/24 01:22 08/08/24 01:22 08/08/24 01:00 Nasal Cannula 2 08/08/24 00:00 08/08/24 00:00 Nasal Cannula 2 08/07/24 23:00 Nasal Cannula 2 08/07/24 22:07 08/07/24 22:07 08/07/24 21:00 Nasal Cannula 2 08/07/24 20:00 Nasal Cannula 2 08/07/24 20:00 08/07/24 20:00 Nasal Cannula 2 Intake and Output 08/08/24 08/08/24 08/08/24 07:59 15:59 23:59 Intake Total 450 / 1260 540 / 1260 270 / 1260 Output Total 425 / 1675 400 / 1675 850 / 1675 Balance 25 / -415 140 / -415 -580 / -415 Intake: Intake, Oral Amount 200 / 1010 540 / 1010 270 / 1010 Infusion Intake 250 / 250 Doxycycline Hyclate 100 mg In 0 250 / 250 .9 % Sodium Chloride 250 ml @ 166.667 mls/hr IV Q12H [facility] Rx#: [id number] Output: Output, Urine Amount 425 / 1675 400 / 1675 850 / 1675 Other: Number of Unmeasured Voids 0 0 0 Weight 110.087 kg Patient Weight 08/08/24 23:59 Weight 110.087 kg Laboratory Results - last 24 hr 08/08/24 08:55: Magnesium 1.8 D I & O for Labs for Last 24 Hours: Intake & Output 08/05/24 08/06/24 08/07/24 08/08/24 23:59 23:59 23:59 23:59 Intake Total 1145 / 1265 1110 / 1590 1320 / 1770 1260 / 1260 Output Total 1250 / 1250 1600 / 1600 2350 / 2650 1675 / 1675 Balance -105 / 15 -490 / -10 -1030 / -880 -415 / -415 Weight 111.039 kg 110.132 kg 110.135 kg 110.087 kg Constitutional: Present no acute distress, morbidly obese, chronically ill appearing and cooperative Head: Present atraumatic and normocephalic ENT: Present normal exam Respiratory: Present prolonged expiratory phase, crackles (bases) and diminished air movement; Absent rhonchi or wheezes Cardiac: Present Reg Rate and Rhythm GI: Present soft and normal bowel sounds; Absent distention or tenderness Extremities: Present normal inspection, full ROM and edema (2+ to knees) Skin: Present intact and pallor; Absent erythema Neuro: Present Grossly Intact, alert, awake, oriented x 3 and moves all extremities Assessment and Plan *Assessment and plan (1) Acute hypercapnic respiratory failure: Status: Acute Category: Medical Code(s): J96.02 - Acute respiratory failure with hypercapnia (2) Atrial fibrillation with rapid ventricular response: Status: Acute Category: Medical Code(s): I48.91 - Unspecified atrial fibrillation (3) Acute on chronic heart failure with preserved ejection fraction (HFpEF): Status: Acute Category: Medical Code(s): I50.33 - Acute on chronic diastolic (congestive) heart failure (4) CHF exacerbation: Status: Acute Qualifiers: Heart failure type: systolic Qualified Code(s): I50.23 - Acute on chronic systolic (congestive) heart failure Category: Medical Code(s): I50.9 - Heart failure, unspecified (5) COPD exacerbation: Status: Acute Category: Medical Code(s): J44.1 - Chronic obstructive pulmonary disease with (acute) exacerbation (6) Difficulty in walking: Status: Acute Category: Medical Code(s): R26.2 - Difficulty in walking, not elsewhere classified Plan Patito Garcia is an 79-year-old female with a medical history significant for COPD on home O2, hypertension, pulmonary embolism, hypertension, dementia, anxiety/depression, hypothyroidism who presents with shortness of breath and fatigue. Found to be hypercapnic. Initiated on BiPAP in the ED. Discussed case with ER physician, request admission for further management of hypercapnic respiratory failure. I admitted to the stepdown unit for further treatment. Pulmonology consulted to assist with care. Mentation remains at baseline. Wearing BiPAP intermittently. Stable discharge. Awaiting placement. Problems addressed as follows: #Chronic hypoxic, hypercapnic respiratory failure #COPD exacerbation -On admission initiated on BiPAP due to hypercapnia with pCO2 of 90 and pH of 7.19. Wore baseline 2 L nasal cannula overnight. Pulse ox obtained. ABG morning of 08/06 with pH 7.35, pCO2 increased to 66. - Awaiting overnight pulse ox results to assess for qualification due to recurrent hypercarbic respiratory failure. - Trelegy 100 inhaler, DuoNebs every 6 hours scheduled - Continue BiPAP nightly - Continue doxycycline 100 mg twice daily for total of 5 days - Transition to prednisone 40 mg daily to complete 5 days total - Continue supplemental oxygen as needed, currently on 1-2 L. Goal sats greater 90%. -Lab holiday today #Afib # Acute on chronic HFpEF - In A-fib on arrival, rate controlled. Currently on amiodarone 400 mg twice daily, will continue at this time - Recently evaluated by cardiology within the past 2 months. Had left heart cath performed with 3 drug-eluting stents placed in left circumflex and LAD. - Holding aspirin, continue Eliquis 5 mg twice daily, continue Plavix 75 mg daily. ? ECHO shows normal LV systolic function obtained in May per my review of chart - Continue Lasix 40 mg IV twice daily. Negative volume status of -3 L since admission - Repeat CBC, CMP, magnesium ordered for the morning #Falls at home #Physical deconditioning - PT/OT consulted, recommend placement. Patient open to SNF placement. Social work assisting with referral #Chronic pulmonary embolism: Eliquis. #Hypertension: Holding blood pressure medication at this time, will evaluate home regimen and consider resuming in the morning. Patient normotensive at 142/56 #Dementia: resumed home donepezil and memantine #Anxiety/depression: Resumed home buspirone, duloxetine. #Hypothyroidism: Resumed home levothyroxine 125 mcg. TSH 0.16 earlier this year Obesity complicates all aspects of her care. Concern for obesity hypoventilation component to her respiratory failure. Full code Eliquis twice daily Cardiac diet
[2024-08-08] MEDS: MELATONIN 5MG TABLET 5 MG PO (21:41)
[2024-08-08] MEDS: DOCUSATE SODIUM 100 MG CAPSULE PO (21:41)
[2024-08-08] MEDS: IRBESARTAN 75MG TABLET 37.5 MG PO (21:41)
[2024-08-09] VITALS: BP 135/74; PULSE 68; RESP 18; TEMP 36.8; O2SAT 97
[2024-08-09] MEDS: IPRATROPIUM BROMIDE 0.5 MG/2.5ML SOLUTION IH ×3 (01:44→09:42)
[2024-08-09] MEDS: LEVALBUTEROL 1.25MG/3ML NEB 1.25 MG IH ×3 (01:44→09:43)
[2024-08-09 01:47] VITALS: PULSE 73; PULSE 76
[2024-08-09 04:00] VITALS: BP 129/85; PULSE 78; RESP 18; TEMP 36.8; O2SAT 98; BMI 43.7
[2024-08-09] MEDS: DOXYCYCLINE HYCLATE 100 MG in 0.9 % SODIUM CHLORIDE 250 ML 166.667 MG IV (04:00)
--- NOTE | 2024-08-09 05:12 | PC.NURSE ---
daughter at bedside. v/s, ox4. No acute events to report. Plan of care ongoing.
[2024-08-09 06:08] VITALS: PULSE 59; PULSE 60; O2SAT 99
[2024-08-09] MEDS: BUDESONIDE 0.5MG/2ML NEB 0.5 MG IH (06:08)
[2024-08-09 06:42] LABS: Hematocrit 31.4 % (37.0-47.0); Hemoglobin 9.3 g/dL (12.2-16.2); Immature Granulocytes % 0.5 %; Mean Corpuscular HGB Conc 29.6 g/dL (31.8-35.4); Mean Corpuscular Hemoglobin 26.1 pg (27.0-31.2); Mean Corpuscular Volume 88.2 fl (81-99); Nucleated Red Blood Cells % 0 %; Platelet Count 227 K/mm3 (142-424); Red Blood Count 3.56 M/mm3 (4.20-5.40); Red Cell Distribution Width-SD 59.9 fL; White Blood Count 9.4 K/mm3 (4.8-10.8)
[2024-08-09 07:04] LABS: Alanine Aminotransferase 12 U/L (12-78); Albumin Level 3.2 g/dl (3.5-5.0); Albumin/Globulin Ratio 1.3 (1.1-1.8); Alkaline Phosphatase 67 U/L (38-126); Anion Gap 5.4 mEq/L (5-15); Aspartate Amino Transferase 20 U/L (14-36); Bilirubin,Total 0.3 mg/dl (0.2-1.3); Blood Urea Nitrogen 27 mg/dl (7-17); Calcium 7.6 mg/dl (8.4-10.2); Carbon Dioxide 39 mmol/L (22.0-30.0); Chloride 93 mmol/L (98-107); Creatinine Clearance Estimated 35 mL/min (50-200); Creatinine,Serum 0.90 mg/dl (0.52-1.04); Estimated Glomerular Filt Rate 60 ml/min (>60); GFR (African American) 73 ML/MIN (>60); Globulin 2.4 g/dL (1.3-3.2); Glucose 81 mg/dl (74-100); Magnesium 2.0 mg/dl (1.6-2.3); Potassium 3.4 mmoL/L (3.5-5.1); Sodium 134 mmol/L (136-145); Total Protein,Serum 5.6 g/dl (6.3-8.2)
--- NOTE | 2024-08-09 07:45 | P.DS_ITS ---
General Admission date:: 08/04/24 Discharge date: 08/09/24 HPI HPI HPI: Ms. Garcia is an 79-year-old female with history of chronic hypoxemic respiratory failure, COPD, hypertension, HFpEF, obesity, tremors. She presented with confusion and worsening shortness of breath over the past day.. Family is at bedside and helps answer questions. On arrival to the ED, patient hypoxic on initial presentation. Blood gas showed CO2 greater than 90 on VBG with pH of 7.2. Initiated on BiPAP. Chest imaging showing pulmonary edema bilaterally with elevated BNP. Medicine consulted for admission and further management of COPD exacerbation and acute on chronic HFpEF along with acute on chronic hypoxemic and hypercapnic respiratory failure Evaluation after arriving to the ICU, patient is alert and oriented x 2. His tory supplemented by family at bedside. Tolerating BiPAP, pulling volumes of 3- 400. States she is feeling hungry. Explained that she cannot eat while wearing BiPAP. Also has concern for UTI. Labs showed normal white count 6.1. Kidney function at baseline with creatinine 0.8, BUN 10. BNP elevated above thousand. Denies chest pain, vomiting. Is complaining of back pain however. Hospital Course Hospital Course Hospital Course: Patito Garcia is an 79-year-old female with a medical history significant for COPD on home O2, hypertension, pulmonary embolism, hypertension, dementia, anxiety/depression, hypothyroidism who presents with shortness of breath and fatigue. Found to be hypercapnic. Initiated on BiPAP in the ED. Discussed case with ER physician, request admission for further management of hypercapnic respiratory failure. I admitted to the stepdown unit for further treatment. P ulmonology consulted to assist with care. Mentation stable after correcting hypercapnia. Encouraging patient wear BiPAP when she naps or is asleep at night. Hoping her home BiPAP will be more comfortable and therefore she will be more compliant. Stable to discharge to [facility] for further management. Problems addressed as follows: #Chronic hypoxic, hypercapnic respiratory failure #COPD exacerbation -On admission initiated on BiPAP due to hypercapnia with pCO2 of 90 and pH of 7.19. Blood gas normalized with use of BiPAP. Wearing 2 L nasal cannula continuously which is her baseline. Intermittently wearing BiPAP overnight. Strongly encouraged to wear BiPAP due to the need for addressing her hypercapnia. Patient states understanding but finds the mask uncomfortable. Encouraged to wear it continuously at night or while taking a nap. Pulmonology consulted and assisted with care during admission. Patient has completed 5 days of antibiotics and steroids for COPD exacerbation. No other antibiotics or steroids at discharge. Continue Trelegy 100 inhaler along with DuoNebs every 6 hours scheduled. Continue supplemental oxygen as needed, currently on 1-2 L. Goal sats greater 90%. #Afib # Acute on chronic HFpEF - In A-fib on arrival, rate controlled. Currently on amiodarone 400 mg twice daily, will continue at this time. Recently evaluated by cardiology within the past 2 months. Had left heart cath performed with 3 drug-eluting stents placed in left circumflex and LAD the beginning of July. Has completed 1 month of triple therapy with aspirin, Plavix, Eliquis. Will discontinue aspirin at this time and continue Eliquis 5 mg twice daily and Plavix 75 mg daily. ECHO shows normal LV systolic function obtained in May per my review of chart. Continue Lasix p.o. twice daily to address edema and volume overload. Continue Farxiga daily, Lipitor daily, irbesartan 37.5 mg daily. - Needs repeat CBC, CMP, magnesium in 1 week #Falls at home #Physical deconditioning - PT/OT consulted, recommend placement. Patient agreeable, accepted to [facility]. Appreciate their assistance in care. #Chronic pulmonary embolism: Eliquis. #Hypertension: Resumed irbesartan at low-dose. Continue at this time. #Dementia: resumed home donepezil and memantine #Anxiety/depression: Resumed home buspirone, duloxetine. #Hypothyroidism: Resumed home levothyroxine 125 mcg. TSH 0.16 earlier this year Obesity complicates all aspects of her care. Concern for obesity hypoventilation component to her respiratory failure. Total time spent on discharge 35 minutes in counseling, documentation, chart review, and direct care with patient. Exam Data for Last 24 hours Vital signs and Labs for Last 24 Hours: Temp Pulse Resp BP Pulse Ox O2 Del Method O2 Flow Rate 98.3 F 59 L 18 129/85 99 Nasal Cannula 2 08/09/24 04:00 08/09/24 06:08 08/09/24 04:00 08/09/24 04:00 08/09/24 06:08 08/09/24 06:36 08/09/24 06:36 FiO2 28 08/08/24 19:38 Laboratory Results - last 24 hr 08/08/24 08:55: Magnesium 1.8 D 08/09/24 05:41: WBC 9.4, RBC 3.56 L, Hgb 9.3 L, Hct 31.4 L, MCV 88.2, MCH 26.1 L , MCHC 29.6 L, RDW 18.6 H, Plt Count 227, MPV 10.9 H, Neut % (Auto) 57.7, Lymph % (Auto) 30.2, [place] % (Auto) 11.0 H, Eos % (Auto) 0.3, Baso % (Auto) 0.3, Neut # (Auto) 5.4, Lymph # (Auto) 2.9, [place] # (Auto) 1.0, Eos # (Auto) 0.0, Baso # (Auto) 0.0, Sodium 134 L, Potassium 3.4 L, Chloride 93 L, Carbon Dioxide 39 H, Anion Gap 5.4, BUN 27 H, Creatinine 0.90, Estimated Creat Clear 35, Estimated GFR 60, Est GFR ( Amer) 73 D, Glucose 81, Calcium 7.6 L, Magnesium 2.0 D, Total Bilirubin 0.3, AST 20, ALT 12, Alkaline Phosphatase 67, Total Protein 5.6 L, Albumin 3.2 L, Globulin 2.4, Albumin/Globulin Ratio 1.3 I & O for Last 24 hours: Intake & Output 08/06/24 08/07/24 08/08/24 08/09/24 23:59 23:59 23:59 23:59 Intake Total 1110 / 1590 1320 / 1770 1260 / 1500 240 / 240 Output Total 1600 / 1600 2350 / 2650 1875 / 1875 275 / 275 Balance -490 / -10 -1030 / -880 -615 / -375 -35 / -35 Weight 110.132 kg 110.135 kg 110.087 kg 112.066 kg Constitutional Constitutional: no acute distress, morbidly obese, chronically ill appearing and cooperative *Routine HEENT Exam Head: Present normocephalic Eye: Present EOMI and PERRL ENT: Present mucous membranes moist *Routine Neck Exam Neck: Present supple; Absent lymphadenopathy *Routine Respiratory Exam Respiratory: Present CTA bilaterally; Absent rhonchi, wheezes or crackles *Routine Cardiovascular Exam Cardiovascular: Present RRR *Routine Abdominal Exam Abdominal: Present soft and normoactive bowel sounds; Absent tenderness *Routine Rectal Exam Patient deferred: visual exam *Routine Exam Patient deferred: external exam *Routine Extremities Exam Extremities: Present edema (1-2+ in BLE); Absent cyanosis or clubbing *Routine Skin Exam Skin: Present intact and warm; Absent rash *Routine Neurological Exam Neurological: Present alert, oriented X3 and moving all extremities; Absent altered mental status Results Data Completed and Pending Labs on day of discharge: Labs from last 24 hours 08/09/24 08/08/24 05:41 08:55 WBC 9.4 RBC 3.56 L Hgb 9.3 L Hct 31.4 L MCV 88.2 MCH 26.1 L MCHC 29.6 L RDW 18.6 H Plt Count 227 MPV 10.9 H Neut % (Auto) 57.7 Lymph % (Auto) 30.2 [place] % (Auto) 11.0 H Eos % (Auto) 0.3 Baso % (Auto) 0.3 Neut # (Auto) 5.4 Lymph # (Auto) 2.9 [place] # (Auto) 1.0 Eos # (Auto) 0.0 Baso # (Auto) 0.0 Sodium 134 L Potassium 3.4 L Chloride 93 L Carbon Dioxide 39 H Anion Gap 5.4 BUN 27 H Creatinine 0.90 Estimated Creat Clear 35 Estimated GFR 60 Est GFR ( Amer) 73 D Glucose 81 Calcium 7.6 L Magnesium 2.0 D 1.8 D Total Bilirubin 0.3 AST 20 ALT 12 Alkaline Phosphatase 67 Total Protein 5.6 L Albumin 3.2 L Globulin 2.4 Albumin/Globulin Ratio 1.3 DS: Diagnosis Discharge Diagnosis (1) Acute hypercapnic respiratory failure: Status: Acute Code(s): J96.02 - Acute respiratory failure with hypercapnia (2) Atrial fibrillation with rapid ventricular response: Status: Acute Code(s): I48.91 - Unspecified atrial fibrillation (3) Acute on chronic heart failure with preserved ejection fraction (HFpEF): Status: Acute Code(s): I50.33 - Acute on chronic diastolic (congestive) heart failure (4) CHF exacerbation: Status: Acute Code(s): I50.9 - Heart failure, unspecified Qualifiers: Heart failure type: systolic Qualified Code(s): I50.23 - Acute on chronic systolic (congestive) heart failure (5) COPD exacerbation: Status: Acute Code(s): J44.1 - Chronic obstructive pulmonary disease with (acute) exacerbation (6) Difficulty in walking: Status: Acute Code(s): R26.2 - Difficulty in walking, not elsewhere classified Meds Home Medications and Allergies Home Medications ?Medication ?Instructions ?Recorded ?Confirmed ?Type alendronate 70 mg tablet 70 mg PO WEEKLY 02/12/24 History Held on 08/09/24. Instructions: until back home atorvastatin 40 mg tablet 40 mg PO HS 30 days #30 tabs 02/15/24 08/05/24 Rx albuterol sulfate 90 mcg/actuation 2 puff inhalation Q 4HP PRN 08/09/24 Rx aerosol inhaler (Ventolin HFA) shortness of breath or wheezing 30 days #8.5 grams amiodarone 200 mg tablet 400 mg (2 x 200 mg) PO BID 3 0 days 08/09/24 Rx #120 tabs apixaban 5 mg tablet (Eliquis) 5 mg PO BID #180 tabs 0 08/09/24 Rx buspirone 30 mg tablet 30 mg PO BID 30 days #60 tab s 08/09/24 Rx clopidogrel 75 mg tablet 75 mg PO DAILY 30 days #30 t abs 08/09/24 Rx dapagliflozin propanediol 10 mg 10 mg PO DAILY 30 days #30 tabs 08/09/24 Rx tablet (Farxiga) docusate sodium 100 mg capsule 100 mg PO BID 30 days # 60 caps 08/09/24 Rx (Stool Softener) donepezil 10 mg tablet 10 mg PO HS 30 days #30 tabs 08/09/24 Rx duloxetine 60 mg capsule,delayed 60 mg PO DAILY #30 ca ps 08/09/24 Rx release fluticasone 250 mcg-salmeterol 50 1 ea inhalation BIDR T 30 days #60 08/09/24 Rx mcg/dose blistr powdr for ea inhalation furosemide 40 mg tablet 20 mg (1/2 x 40 mg) PO BIDL 30 08/09/24 Rx days #30 tabs hydroxyzine HCl 50 mg tablet 50 mg PO Q6HP PRN Anxiety 30 days 08/09/24 Rx #90 tabs irbesartan 75 mg tablet 37.5 mg (1/2 x 75 mg) PO HS 30 08/09/24 Rx days #15 tabs levothyroxine 125 mcg tablet 125 mcg PO DAILYDM 30 day s #30 tabs 08/09/24 Rx memantine 5 mg tablet 5 mg PO BID 30 days #60 tabs 08/09/24 Rx New Prescriptions to Start Prescriptions: albuterol sulfate [Ventolin HFA] Malik,Robert amiodarone Malik,Robert apixaban [Eliquis] Malik,Robert buspirone Malik,Robert clopidogrel Malik,Robert dapagliflozin propanediol [Farxiga] Malik,Robert docusate sodium [Stool Softener] Malik,Robert donepezil Malik,Robert duloxetine Malik,Robert fluticasone propion-salmeterol Malik,Robert furosemide Malik,Robert hydroxyzine HCl Malik,Robert irbesartan Malik,Robert levothyroxine Malik,Robert memantine Malik,Robert Allergies Allergy/AdvReac Type Severity Reaction Status Date / Time sulfamethoxazole (From AdvReac Mild Nausea Verified 07/24/24 13:36 Bactrim) trimethoprim (From Bactrim) AdvReac Mild Nausea Verified 07/24/24 13:36 Discharge Plan Disposition Patient Disposition: [facility] Condition: Fair Discharge Order Discharge Orders: Discharge Order (Routine); Ordered 08/09/24 Ordered By: Robert Gan Follow up Plan Follow up with: Laxmi Slaughter MD [Physician, Pulmonology] - 08/28/24 Charlie Watson MD [Staff Physician, Cardiology] - Enter time for follow up Prescriptions/Medication Reconciliation: New irbesartan 75 mg Tablet 37.5 mg PO HS 30 Days Qty: 15 0RF Continued atorvastatin 40 mg Tablet 40 mg PO HS 30 Days Qty: 30 0RF fluticasone propion-salmeterol 250-50 mcg/dose blister with device 1 ea INHALATION BIDRT 30 Days Qty: 60 0RF amiodarone 200 mg Tablet 400 mg PO BID 30 Days Qty: 120 0RF donepezil 10 mg tablet 10 mg PO HS 30 Days Qty: 30 0RF hydroxyzine HCl 50 mg tablet 50 mg PO Q6HP PRN (Reason: Anxiety) 30 Days Qty: 90 0RF Patient Comments: TAKE 1/2 TO 1 TABLET BY MOUTH EVERY 6 HOURS NEEDED FOR ANXIETY clopidogrel 75 mg Tablet 75 mg PO DAILY 30 Days Qty: 30 0RF buspirone 30 mg tablet 30 mg PO BID 30 Days Qty: 60 0RF levothyroxine 125 mcg tablet 125 mcg PO DAILYDM 30 Days Qty: 30 0RF docusate sodium [Stool Softener] 100 mg capsule 100 mg PO BID 30 Days Qty: 60 0RF albuterol sulfate [Ventolin HFA] 90 mcg/actuation HFA aerosol inhaler 2 puff inhalation Q4HP PRN (Reason: shortness of breath or wheezing) 30 Days Qty: 8.5 0RF memantine 5 mg tablet 5 mg PO BID 30 Days Qty: 60 0RF duloxetine 60 mg capsule,delayed release(DR/EC) 60 mg PO DAILY Qty: 30 0RF Eliquis 5 mg tablet 5 mg PO BID Qty: 180 2RF dapagliflozin propanediol [Farxiga] 10 mg Tablet 10 mg PO DAILY 30 Days Qty: 30 0RF Changed furosemide 40 mg tablet 20 mg PO BIDL 30 Days Qty: 30 0RF Held alendronate 70 mg tablet 70 mg PO WEEKLY Hold Instructions: until back home Discontinued valsartan 40 mg tablet 40 mg PO BID Qty: 60 5RF trazodone 150 mg tablet 150 mg PO HS aspirin 81 mg Tablet,Delayed Release (Dr/Ec) 81 mg PO DAILY 30 Days Qty: 30 0RF Problem Reconciliation Problems Reviewed?: Yes Patient Discharge Instructions ACTIVITY: Continue current activity DIET: continue same diet Patient Instructions: DI for Respiratory Failure, Stop Light Heart Failure Print Language: Amharic Providers Primary Care Provider: Provider,Referral Admit Provider: Robert Gan Attending Provider: Robert Gan
[2024-08-09 08:00] VITALS: BP 122/53; PULSE 63; RESP 18; TEMP 36.8; O2SAT 98
[2024-08-09] MEDS: POTASSIUM CHLORIDE 20MEQ TAB 40 MEQ PO (09:25)
[2024-08-09] MEDS: CLOPIDOGREL 75MG TAB 75 MG PO (09:35)
[2024-08-09] MEDS: METHYLPREDNISOLONE SOD SUCC 40MG VIAL 40 MG IV (09:35)
[2024-08-09] MEDS: LEVOTHYROXINE 125MCG (0.125MG) TAB 125 MCG PO (09:36)
[2024-08-09] MEDS: MEMANTINE 10MG TABLET 5 MG PO (09:36)
[2024-08-09] MEDS: AMIODARONE 200MG TABLET 400 MG PO (09:36)
[2024-08-09] MEDS: APIXABAN 5MG TABLET 5 MG PO (09:36)
[2024-08-09 09:43] VITALS: PULSE 81; PULSE 82; O2SAT 93
--- NOTE | 2024-08-09 09:47 | P.PN_ITS ---
Subjective *Date: 08/09/24 *Time: 11:00 Interval history: No acute respiratory events overnight. Denies any new respiratory complaint Pulmonology Exam Inpatient Vital signs and Labs for Last 24 Hours: Temp Pulse Resp BP Pulse Ox O2 Del Method O2 Flow Rate 98.3 F 81 18 122/53 L 93 L Nasal Cannula 2 08/09/24 08:00 08/09/24 09:43 08/09/24 08:00 08/09/24 08:00 08/09/24 09:43 08/09/24 09:43 08/09/24 09:43 FiO2 28 08/08/24 19:38 Laboratory Results - last 24 hr 08/09/24 05:41: WBC 9.4, RBC 3.56 L, Hgb 9.3 L, Hct 31.4 L, MCV 88.2, MCH 26.1 L , MCHC 29.6 L, RDW 18.6 H, Plt Count 227, MPV 10.9 H, Neut % (Auto) 57.7, Lymph % (Auto) 30.2, [place] % (Auto) 11.0 H, Eos % (Auto) 0.3, Baso % (Auto) 0.3, Neut # (Auto) 5.4, Lymph # (Auto) 2.9, [place] # (Auto) 1.0, Eos # (Auto) 0.0, Baso # (Auto) 0.0, Sodium 134 L, Potassium 3.4 L, Chloride 93 L, Carbon Dioxide 39 H, Anion Gap 5.4, BUN 27 H, Creatinine 0.90, Estimated Creat Clear 35, Estimated GFR 60, Est GFR ( Amer) 73 D, Glucose 81, Calcium 7.6 L, Magnesium 2.0 D, Total Bilirubin 0.3, AST 20, ALT 12, Alkaline Phosphatase 67, Total Protein 5.6 L, Albumin 3.2 L, Globulin 2.4, Albumin/Globulin Ratio 1.3 Temp Pulse Resp BP Pulse Ox O2 Del Method O2 Flow Rate 97.8 F 53 L 15 90/41 L 99 BiPAP 3 08/04/24 15:20 08/04/24 15:20 08/04/24 15:20 08/04/24 15:20 08/04/24 15:14 08/04/24 15:20 08/04/24 13:31 FiO2 35 08/04/24 14:10 Laboratory Results - last 24 hr 08/04/24 13:11: WBC 6.1, RBC 3.65 L, Hgb 9.8 L, Hct 35.2 L, MCV 96.4, MCH 26.8 L , MCHC 27.8 L, RDW 17.1, Plt Count 175, MPV 10.4, Neut % (Auto) 56.0, Lymph % (Auto) 29.3, [place] % (Auto) 9.3, Eos % (Auto) 4.3, Baso % (Auto) 0.8, Neut # (Auto) 3.4, Lymph # (Auto) 1.8, [place] # (Auto) 0.6, Eos # (Auto) 0.3, Baso # (Auto) 0.1, Sodium 136, Potassium 4.5, Chloride 91 L, Carbon Dioxide 43 H*, Anion Gap 6.5, BUN 10, Creatinine 0.80, Estimated Creat Clear 37, Estimated GFR 69, Est GFR ( Amer) 84, Glucose 106 H, Calcium 8.8, Magnesium 2.3, Total Bilirubin 0.2, AST 23, ALT 12, Alkaline Phosphatase 75, Troponin I 0.02, NT-Pro-B Natriuret Pep 1090 H, Total Protein 6.1 L, Albumin 3.3 L, Globulin 2.8, Albumin/Globulin Ratio 1.2 08/04/24 13:33: VBG pH 7.17 L, VBG pCO2 93.0 H, VBG pO2 54.8 H, VBG HCO3 32.9 H, VBG Total CO2 35.8 H, VBG O2 Saturation 87.0 H, VBG Base Excess 4.4 H, VBG Lactic Acid 1.0 08/04/24 14:51: Urine Color Yellow, Urine Appearance Clear, Urine pH 6.0, Ur Specific [place] 1.020, Urine Protein Negative, Urine Glucose (UA) 3+, Urine Ketones Negative, Urine Blood Negative, Urine Nitrate Negative, Urine Bilirubin Negative, Urine Urobilinogen 1.0, Ur Leukocyte Esterase Negative, Urine RBC 3-5, Urine WBC 3-5, Ur Squamous Epith Cells 20-50, Calcium Oxalate Crystal 1+, Urine Bacteria 3+, Urine Yeast 1+ I & O for Labs for Last 24 Hours: Intake & Output 06/29/08/07/24 08/08/24 08/09/24 23:59 23:59 23:59 23:59 Intake Total 1110 / 1590 1320 / 1770 1260 / 1500 480 / 480 Output Total 1600 / 1600 2350 / 2650 1875 / 1875 775 / 775 Balance -490 / -10 -1030 / -880 -615 / -375 -295 / -295 Weight 242 lb 12.792 oz 242 lb 12.898 oz 242 lb 11.2 oz 247 lb 1 oz Intake & Output 08/01/24 08/02/24 08/03/24 08/04/24 23:59 23:59 23:59 23:59 Weight 242 lb Constitutional: Present severe distress Head: Present normocephalic and atraumatic ENT: Present normal exam, normal oropharynx and mucous membranes moist Neck: Present normal inspection and full ROM Respiratory: Present respiratory distress and able to speak in complete sentences; Absent prolonged expiratory phase or wheezes Cardiac: Present S1/S2, Tachycardia and radial pulses present GI: Present soft and distention; Absent tenderness or guarding Rectal (female): Present deferred (female): Present deferred Skin: Present intact; Absent cyanosis or jaundice Neuro: Present alert, awake and oriented x 3 Extremities: Present normal inspection; Absent clubbing or cyanosis Psychiatric: Present normal affect and cooperative Assessment and Plan *Assessment and plan (1) Acute exacerbation of chronic obstructive pulmonary disease: Status: Acute Category: Medical Code(s): J44.1 - Chronic obstructive pulmonary disease with (acute) exacerbation (2) Acute on chronic respiratory failure with hypoxia and hypercapnia: Status: Acute Category: Medical Code(s): J96.21 - Acute and chronic respiratory failure with hypoxia; J96.22 - Acute and chronic respiratory failure with hypercapnia Plan Ms. Garcia is a 79-year-old female COPD, chronic hypoxic hypercarbic respiratory failure on 2 to 3 L nasal cannula, recently seen in the hospital for presumed pneumonia, completed 3-day course of levofloxacin at discharge from early July. Worsening respiratory found to be in hypercarbic respiratory failure and pulmonary was called for further evaluation and management. Patient admits not being compliant with her inhaler / Neb therapy upon her recent discharge. Denies any known sick contacts Chest x-ray from this morning improving from prior with respect to the left lo wer lobe airspace disease. Interstitial prominence. Right lower lobe infiltrates noted. Afebrile. Hemodynamically stable. No evidence of leukocytosis. Repeat VBG improving hypercarbic respiratory failure. On BiPAP. Alert and oriented x 3, responding appropriate verbal commands. Wheezing noted on auscultation. Comprehensive respiratory viral PCR panel and nasal MRSA PCR negative. Procalcitonin within normal limits at 0.05 Interval update: No acute respiratory vents overnight. Awaiting placement. Plan: Continue oxygen supplementation, 1 to 2 L NC at rest and 3-4L NC with exertion Continue home BiPAP therapy 09/25 for her chronic hypercarbic respiratory failure. Will follow as an outpatient basis in 2 to 3 weeks with repeat ABG Continue Trelegy 100 inhaler along with DuoNebs 4 times daily as needed Doxycycline 100 mg twice daily to complete a total of 5-day course. Prednisone 40 mg daily to complete a total of 5-day course Thank you for involving pulmonary in this patient care. Will continue to follow we will follow in 2-3 weeks with repeat ABG prior to clinic with
[2024-08-09] MEDS: BUSPIRONE HCL 10 MG TABLET 30 MG PO (10:03)
--- OUTSIDE RECORDS SUMMARY | 2024-09-12 20:00 | XMS_ITS | Clinical Summary ---
Author Organization Unknown Care Team Providers Care Commercial Airline Pilot Name Role Phone PATRICIA ZAPATA, URI Unavailable Unavailable RADHA PT, LAURITA Unavailable Unavailable ROCKY OT, ARABELLA Unavailable Unavailable ZAYDA ST, CIARRA Unavailable Unavailable LU MARTIN, LAYO Unavailable Unavailable RILEY RN, DENNIS Unavailable Unavailable JHONNY HALL, RENETTA Unavailable Unavailable Payers Payer Name Policy Type Policy Number Effective Date Expira tion Date ESTHER [id number] Problems Condition Name Condition Details Condition Category Status Onset Date Resolution Date Last Treatment Date Treating Clinician Comments PNEUMONIA, UNSPECIFIED ORGANISM Active 07-15 00:00: 00 CHR OBSTRUCTIVE PULMON DISEASE WITH (ACUTE) LOWER RESP INFCT Active 07-15 00:00: 00 ACUTE AND CHRONIC RESPIRATORY FAILURE WITH HYPOXIA Active 07-15 00:00: 00 UNSPECIFIED ATRIAL FIBRILLATION Active 07-15 00:00: 00 HYPERTENSIVE HEART DISEASE WITH HEART FAILURE Active 05-10 00:00: 00 ACUTE ON CHRONIC DIASTOLIC (CONGESTIVE) HEART FAILURE Active 05-10 00:00: 00 CHRONIC RESPIRATORY FAILURE WITH HYPERCAPNIA Active 05-10 00:00: 00 OTHER PULMONARY EMBOLISM WITHOUT ACUTE COR PULMONALE Active 05-10 00:00: 00 ATHSCL HEART DISEASE OF [place] CORONARY ARTERY W/O ANG PCTRS Active 05-10 00:00: 00 DYSPHAGIA, UNSPECIFIED Active 05-10 00:00: 00 UNSP DEMENTIA, UNSP SEVERITY, WITHOUT BEH/PSYCH/MO OD/ANX Active 05-10 00:00: 00 UNSPECIFIED OSTEOARTHRIT IS, UNSPECIFIED SITE Active 05-10 00:00: 00 ANXIETY DISORDER, UNSPECIFIED Active 05-10 00:00: 00 DEPRESSION, UNSPECIFIED Active 05-10 00:00: 00 HYPERLIPIDEM IA, UNSPECIFIED Active 05-10 00:00: 00 HYPOTHYROIDI SM, UNSPECIFIED Active 05-10 00:00: 00 OTHER OBESITY DUE TO EXCESS CALORIES Active 05-10 00:00: 00 BODY MASS INDEX [BMI]40.0-44 .9, ADULT Active 05-10 00:00: 00 DEPENDENCE ON SUPPLEMENTAL OXYGEN Active 05-10 00:00: 00 PENITENTIARY (CURRENT) USE OF ANTICOAGULAN TS Active 05-10 00:00: 00 PENITENTIARY (CURRENT) USE OF INHALED STEROIDS Active 05-10 00:00: 00 Allergies, Adverse Reactions, Alerts Allergy Name Allergy Type Status Severity Reaction(s) Onset Date Inactive Date Treating Clinician Comments NO KNOWN ALLERGIES Propensity to adverse reactions Active 05-17 14:15: 27 Medications Ordered Medication Name Filled Medication Name Start Date Stop Date Current Medication? Ordering Clinician Indication Dosage Frequency Signature (SIG) Comments Components atenolol 25 mg tablet 04-24 00:00: 00 10-13 23:59 :00 No [id number] HTN 1 tablet DAILY 1 tablet DAILY (route: oral) Med Classific ation: Cardiovas cular Therapy Agents furosemide 40 mg tablet 04-24 00:00: 00 10-13 23:59 :00 No [id number] FLUID 1 tablet DAILY 1 tablet DAILY (route: oral) Med Classific ation: Cardiovas cular Therapy Agents valsartan 80 mg tablet 04-24 00:00: 00 04-29 00:00 :00 No [id number] Per instruc tions Per instructio ns (route: oral) Med Classific ation: Cardiovas cular Therapy Agents hydroxyzine HCl 25 mg tablet 04-17 00:00: 00 10-13 23:59 :00 No [id number] ANXIETY 1 tablet 2 TIMES DAILY 1 tablet 2 TIMES DAILY (route: oral) Med Classific ation: Central Nervous System Agents alendronate 70 mg tablet - 00:00: 00 10-13 23:59 :00 No [id number] OSTEOPOROSI S 1 tablet WEEKLY 1 tablet WEEKLY (route: oral) Med Classific ation: Endocrine Trelegy Ellipta 200 mcg-62.5 mcg-25 mcg powder for inhalation 04-14 00:00: 00 10-13 23:59 :00 No [id number] BREATHING 1 inhalat ion DAILY 1 inhalation DAILY (route: inhalation ) Med Classific ation: Respirato ry Therapy Agents duloxetine 60 mg capsule,del ayed release 04-11 00:00: 00 10-13 23:59 :00 No [id number] DEPRESSION 1 capsule DAILY 1 capsule DAILY (route: oral) Med Classific ation: Central Nervous System Agents furosemide 20 mg tablet - 00:00: 00 04-29 00:00 :00 No [id number] Per instruc tions Per instructio ns (route: oral) Med Classific ation: Cardiovas cular Therapy Agents donepezil 10 mg tablet - 00:00: 00 10-13 23:59 :00 No [id number] MEMORY 1 tablet DAILY 1 tablet DAILY (route: oral) Med Classific ation: Cognitive Disorder Therapy levothyroxi ne 125 mcg tablet 2- 00:00: 00 10-13 23:59 :00 No [id number] THYROID 1 tablet DAILY 1 tablet DAILY (route: oral) Med Classific ation: Endocrine losartan 50 mg-hydrochl orothiazide 12.5 mg tablet 2- 00:00: 00 10-13 23:59 :00 No [id number] HTN 1 tablet DAILY 1 tablet DAILY (route: oral) Med Classific ation: Cardiovas cular Therapy Agents omeprazole 40 mg capsule,del ayed release 2-21 00:00: 00 10-13 23:59 :00 No [id number] GERD 1 capsule DAILY 1 capsule DAILY (route: oral) Med Classific ation: Gastroint estinal Therapy Agents amlodipine 5 mg tablet 2-20 00:00: 00 10-13 23:59 :00 No [id number] HTN 1 tablet DAILY 1 tablet DAILY (route: oral) Med Classific ation: Cardiovas cular Therapy Agents atenolol 50 mg tablet 2-20 00:00: 00 04-29 00:00 :00 No [id number] Per instruc tions Per instructio ns (route: oral) Med Classific ation: Cardiovas cular Therapy Agents buspirone 30 mg tablet 2-20 00:00: 00 10-13 23:59 :00 No [id number] DEPRESSION 1 tablet 3 TIMES DAILY 1 tablet 3 TIMES DAILY (route: oral) Med Classific ation: Central Nervous System Agents pravastatin 20 mg tablet 2-20 00:00: 00 10-13 23:59 :00 No [id number] CHOLESTEROL 1 tablet DAILY 1 tablet DAILY (route: oral) Med Classific ation: Cardiovas cular Therapy Agents Breo Ellipta 100 mcg-25 mcg/dose powder for inhalation - 00:00: 00 10-13 23:59 :00 No [id number] BREATHING 1 inhalat ion DAILY 1 inhalation DAILY (route: inhalation ) Med Classific ation: Respirato ry Therapy Agents trazodone 100 mg tablet -22 00:00: 00 10-13 23:59 :00 No [id number] SLEEP 1 tablet DAILY 1 tablet DAILY (route: oral) Med Classific ation: Central Nervous System Agents Entresto 24 mg-26 mg tablet 5-21 00:00: 00 10-13 23:59 :00 No [id number] CHF 1 tablet 2 TIMES DAILY 1 tablet 2 TIMES DAILY (route: oral) Med Classific ation: Cardiovas cular Therapy Agents doxycycline hyclate 100 mg capsule 9-06 00:00: 00 02-21 00:00 :00 No [id number] ANTIBIOTIC 1 capsule 2 TIMES DAILY 1 capsule 2 TIMES DAILY (route: oral) Med Classific ation: Anti-Infe ctive Agents ipratropium 0.5 mg-albutero l 3 mg (2.5 mg base)/3 mL nebulizatio n soln 10-14 00:00: 00 02-21 00:00 :00 No [id number] BREATHING 3 mL 3 TIMES DAILY 3 mL 3 TIMES DAILY (route: inhalation ) Med Classific ation: Respirato ry Therapy Agents levofloxaci n 750 mg tablet 10-14 00:00: 00 02-21 00:00 :00 No [id number] ANTIBIOTIC 1 tablet DAILY 1 tablet DAILY (route: oral) Med Classific ation: Anti-Infe ctive Agents oxycodone 5 mg tablet 10-14 00:00: 00 02-21 00:00 :00 No [id number] PAIN 1 tablet EVERY 8 HOURS 1 tablet EVERY 8 HOURS (route: oral) Med Classific ation: Analgesic , Anti-infl ammatory or Antipyret ic trazodone 150 mg tablet 10-05 00:00: 00 05-17 00:00 :00 No [id number] DEPRESSION AND SLEEP 1 tablet BEDTIME 1 tablet BEDTIME (route: oral) Med Classific ation: Central Nervous System Agents albuterol sulfate 2.5 mg/3 mL (0.083 %) solution for nebulizatio n 10-03 00:00: 00 05-17 00:00 :00 No [id number] SHORTNESS OF BREATH 2.5 mg EVERY 4 HOURS 2.5 mg EVERY 4 HOURS (route: inhalation ) Med Classific ation: Respirato ry Therapy Agents clotrimazol e 1 % topical cream 10-03 00:00: 00 10-24 00:00 :00 No [id number] Unavailable Per instruc tions EVERY 12 HOURS DIRECTED Per instructio ns EVERY 12 HOURS DIRECTED (route: topical) Med Classific ation: Dermatolo gical hydroxyzine HCl 50 mg tablet 10-03 00:00: 00 10-24 00:00 :00 No [id number] Unavailable Per instruc tions EVERY 6 HOURS NEEDED Per instructio ns EVERY 6 HOURS NEEDED (route: oral) Med Classific ation: Central Nervous System Agents ondansetron 8 mg disintegrat ing tablet 10-03 00:00: 00 10-24 00:00 :00 No [id number] Unavailable Per instruc tions EVERY 8 HOURS NEEDED Per instructio ns EVERY 8 HOURS NEEDED (route: oral) Med Classific ation: Gastroint estinal Therapy Agents sulfamethox azole 800 mg-trimetho prim 160 mg tablet 10-03 00:00: 00 10-24 00:00 :00 No [id number] Unavailable Per instruc tions TWICE DAILY FOR 10 DAYS Per instructio ns TWICE DAILY FOR 10 DAYS (route: oral) Med Classific ation: Anti-Infe ctive Agents albuterol sulfate HFA 90 mcg/actuati on aerosol inhaler 09-27 00:00: 00 Yes [id number] BREATHING 2 puff EVERY 4 HOURS 2 puff EVERY 4 HOURS (route: inhalation ) Med Classific ation: Respirato ry Therapy Agents memantine 5 mg tablet 09-26 00:00: 00 Yes [id number] DEMENTIA 1 tablet 2 TIMES DAILY 1 tablet 2 TIMES DAILY (route: oral) Med Classific ation: Cognitive Disorder Therapy amlodipine 5 mg tablet 09-21 00:00: 00 05-17 00:00 :00 No [id number] BLOOD PRESSURE 1 tablet DAILY 1 tablet DAILY (route: oral) Med Classific ation: Cardiovas cular Therapy Agents levothyroxi ne 125 mcg tablet 09-21 00:00: 00 Yes [id number] THYROID 1 tablet DAILY 1 tablet DAILY (route: oral) Med Classific ation: Endocrine duloxetine 60 mg capsule,del ayed release 09-19 00:00: 00 Yes [id number] MOOD 1 capsule DAILY 1 capsule DAILY (route: oral) Med Classific ation: Central Nervous System Agents famotidine 40 mg tablet 09-19 00:00: 00 05-17 00:00 :00 No [id number] GERD 1 tablet DAILY 1 tablet DAILY (route: oral) Med Classific ation: Gastroint estinal Therapy Agents hydroxyzine HCl 25 mg tablet 09-19 00:00: 00 Yes [id number] ANXIETY Per instruc tions EVERY 6 HOURS Per instructio ns EVERY 6 HOURS (route: oral) Med Classific ation: Central Nervous System Agents atenolol 25 mg tablet 10-25 00:00: 00 05-17 00:00 :00 No [id number] BLOOD PRESSURE 1 tablet DAILY 1 tablet DAILY (route: oral) Med Classific ation: Cardiovas cular Therapy Agents donepezil 10 mg tablet 10-25 00:00: 00 Yes [id number] DEMENTIA 1 tablet DAILY 1 tablet DAILY (route: oral) Med Classific ation: Cognitive Disorder Therapy Eliquis 5 mg tablet 10-25 00:00: 00 Yes [id number] BLOOD THINNER 1 tablet 2 TIMES DAILY 1 tablet 2 TIMES DAILY (route: oral) Med Classific ation: Hematolog ical Agents Entresto 49 mg-51 mg tablet 10-25 00:00: 00 05-17 00:00 :00 No [id number] HEART FAILURE 1 tablet 2 TIMES DAILY 1 tablet 2 TIMES DAILY (route: oral) Med Classific ation: Cardiovas cular Therapy Agents pravastatin 20 mg tablet 10-25 00:00: 00 02-21 00:00 :00 No [id number] CHOLESTEROL 1 tablet BEDTIME 1 tablet BEDTIME (route: oral) Med Classific ation: Cardiovas cular Therapy Agents alendronate 70 mg tablet 02-14 00:00: 00 Yes [id number] OSTEOPOROSI S 1 tablet WEEKLY 1 tablet WEEKLY (route: oral) Med Classific ation: Endocrine atorvastati n 40 mg tablet 02-14 00:00: 00 Yes [id number] CHOLESTEROL 1 tablet BEDTIME 1 tablet BEDTIME (route: oral) Med Classific ation: Cardiovas cular Therapy Agents Breyna 160 mcg-4.5 mcg/actuati on HFA aerosol inhaler 02-14 00:00: 00 05-17 00:00 :00 No [id number] COPD 2 puff 2 TIMES DAILY 2 puff 2 TIMES DAILY (route: inhalation ) Med Classific ation: Respirato ry Therapy Agents buspirone 30 mg tablet 02-14 00:00: 00 Yes [id number] MOOD 1 tablet 2 TIMES DAILY 1 tablet 2 TIMES DAILY (route: oral) Med Classific ation: Central Nervous System Agents guaifenesin ER 600 mg tablet, extended release 12 hr 02-14 00:00: 00 Yes [id number] COUGH 2 tablet 2 TIMES DAILY 2 tablet 2 TIMES DAILY (route: oral) Med Classific ation: Respirato ry Therapy Agents prednisone 20 mg tablet 02-14 00:00: 00 05-17 00:00 :00 No [id number] COPD 2 tablet 2 TIMES DAILY 2 tablet 2 TIMES DAILY (route: oral) Med Classific ation: Endocrine Trelegy Ellipta 100 mcg-62.5 mcg-25 mcg powder for inhalation 02-14 00:00: 00 Yes [id number] COPD 1 inhalat ion DAILY 1 inhalation DAILY (route: inhalation ) Med Classific ation: Respirato ry Therapy Agents acetazolami de 250 mg tablet 05-17 00:00: 00 Yes [id number] SHORTNESS OF BREATH 1 tablet 2 TIMES DAILY 1 tablet 2 TIMES DAILY (route: oral) Med Classific ation: Cardiovas cular Therapy Agents bumetanide 2 mg tablet 05-17 00:00: 00 Yes [id number] EDEMA 1 tablet 2 TIMES DAILY 1 tablet 2 TIMES DAILY (route: oral) Med Classific ation: Cardiovas cular Therapy Agents diltiazem 120 mg tablet 05-17 00:00: 00 Yes [id number] ANGINA 1 tablet DAILY 1 tablet DAILY (route: oral) Med Classific ation: Cardiovas cular Therapy Agents levofloxaci n 750 mg tablet 05-17 00:00: 00 05-23 23:59 :00 No [id number] ANTIBIOTIC 1 tablet DAILY 1 tablet DAILY (route: oral) Med Classific ation: Anti-Infe ctive Agents metoprolol tartrate 25 mg tablet 05-17 00:00: 00 Yes [id number] BLOOD PRESSURE 1 tablet 2 TIMES DAILY 1 tablet 2 TIMES DAILY (route: oral) Med Classific ation: Cardiovas cular Therapy Agents Stool Softener 100 mg capsule 24 00:00: 00 Yes [id number] CONSTIPATIO N 100 mg 2 TIMES DAILY 100 mg 2 TIMES DAILY (route: oral) Med Classific ation: Gastroint estinal Therapy Agents valsartan 40 mg tablet 08-01 00:00: 00 Yes [id number] BP 40 mg 2 TIMES DAILY 40 mg 2 TIMES DAILY (route: oral) Med Classific ation: Cardiovas cular Therapy Agents Vital Signs Vital Name Observation Time Observation Value Commen ts Temperature 2024-08-03 11:19:00.000 98.1 [degF] Temperature 2024-08-01 14:48:00.000 98.1 [degF] Pulse 2024-08-03 11:19:00.000 61 /min Pulse 2024-08-01 14:48:00.000 66 /min Pulse 2024-07-31 15:00:00.000 72 /min O2 Saturation (%) 2024-08-03 11:19:00.000 93 % O2 Saturation (%) 2024-08-01 14:52:00.000 96 % O2 Saturation (%) 2024-07-31 14:53:00.000 94 % Respirations 2024-08-03 11:19:00.000 18 /min Respirations 2024-08-01 14:48:00.000 18 /min Respirations 2024-07-31 14:53:00.000 20 /min Weight (lbs) 2024-08-01 14:51:00.000 242.6 [lb_av] Systolic Blood Pressure 2024-08-03 11:19:00.000 126 mm [Hg] Systolic Blood Pressure 2024-08-01 14:48:00.000 112 mm [Hg] Systolic Blood Pressure 2024-07-31 14:53:00.000 128 mm [Hg] Diastolic Blood Pressure 2024-08-03 11:19:00.000 78 mm [Hg] Diastolic Blood Pressure 2024-08-01 14:48:00.000 64 mm [Hg] Diastolic Blood Pressure 2024-07-31 14:53:00.000 62 mm [Hg] Plan of Treatment Planned Activity Planned Date Details Comments Future Scheduled Test RN TO OBSE RVE, ASSESS, EVALUATE, AND DEVELOP AN INDIVIDUALIZED PLAN OF CARE. AGENCY MAY ACCEPT ORDERS FROM CONSULTING PHYSICIANS URI SIMS MD RN TO OBSERVE AND ASSESS, GROUND CONTROL APPROACH TECHNICIAN/CREATIVE PRODUCER TO OBSERVE FOR RISK FOR FALLS AND INSTRUCT IN FALL PREVENTION, HOME SAFETY, MEDICATION MANAGEMENT, INFECTION PREVENTION, AND NUTRITION MANAGEMENT. RN/GROUND CONTROL APPROACH TECHNICIAN/CREATIVE PRODUCER NURSE MAY PERFORM O2 SATURATION LEVEL ON ADMISSION AND PRN FOR SOB AND AMS FOR RN TO ASSESS/GROUND CONTROL APPROACH TECHNICIAN TO OBSERVE PATIENT, WITH NOTIFICATION TO THE PHYSICIAN IF SATURATION IS 90% IN THE ABSENCE OF MORE SPECIFIC PARAMETERS FROM THE PHYSICIAN. AGENCY MAY PERFORM A RESUMPTION OF CARE VISIT FOLLOWING ANY HOSPITAL ADMISSION. RN/GROUND CONTROL APPROACH TECHNICIAN/CREATIVE PRODUCER TO MONITOR CO-MORBID CONDITIONS LISTED ON THE PLAN OF CARE AND ANY NEW CONDITIONS THAT PRESENT THEMSELVES DURING THIS EPISODE TO IDENTIFY CHANGES AND INTERVENE TO MINIMIZE COMPLICATIONS. [code = RN TO OBSERVE, ASSESS, EVALUATE, AND DEVELOP AN INDIVIDUALIZED PLAN OF CARE. AGENCY MAY ACCEPT ORDERS FROM CONSULTING PHYSICIANS URI SIMS MD RN TO OBSERVE AND ASSESS, GROUND CONTROL APPROACH TECHNICIAN/CREATIVE PRODUCER TO OBSERVE FOR RISK FOR FALLS AND INSTRUCT IN FALL PREVENTION, HOME SAFETY, MEDICATION MANAGEMENT, INFECTION PREVENTION, AND NUTRITION MANAGEMENT. RN/GROUND CONTROL APPROACH TECHNICIAN/CREATIVE PRODUCER NURSE MAY PERFORM O2 SATURATION LEVEL ON ADMISSION AND PRN FOR SOB AND AMS FOR RN TO ASSESS/GROUND CONTROL APPROACH TECHNICIAN TO OBSERVE PATIENT, WITH NOTIFICATION TO THE PHYSICIAN IF SATURATION IS 90% IN THE ABSENCE OF MORE SPECIFIC PARAMETERS FROM THE PHYSICIAN. AGENCY MAY PERFORM A RESUMPTION OF CARE VISIT FOLLOWING ANY HOSPITAL ADMISSION. RN/GROUND CONTROL APPROACH TECHNICIAN/CREATIVE PRODUCER TO MONITOR CO-MORBID CONDITIONS LISTED ON THE PLAN OF CARE AND ANY NEW CONDITIONS THAT PRESENT THEMSELVES DURING THIS EPISODE TO IDENTIFY CHANGES AND INTERVENE TO MINIMIZE COMPLICATIONS.] Future Scheduled Test RISK FOR H OSPITALIZATION; RN TO ASSESS/TEACH, CREATIVE PRODUCER/GROUND CONTROL APPROACH TECHNICIAN TO OBSERVE/TEACH PATIENT/CAREGIVER ON RISK FOR HOSPITALIZATION/EMERGENCY ROOM VISITS, TEACH SIGNS AND SYMPTOMS THAT PUT PATIENT AT RISK, WHEN TO NOTIFY NURSE/PHYSICIAN OF COMPLICATIONS/DECLINE, AND WHEN TO CALL 911. [code = RISK FOR HOSPITALIZATION; RN TO ASSESS/TEACH, CREATIVE PRODUCER/GROUND CONTROL APPROACH TECHNICIAN TO OBSERVE/TEACH PATIENT/CAREGIVER ON RISK FOR HOSPITALIZATION/EMERGENCY ROOM VISITS, TEACH SIGNS AND SYMPTOMS THAT PUT PATIENT AT RISK, WHEN TO NOTIFY NURSE/PHYSICIAN OF COMPLICATIONS/DECLINE, AND WHEN TO CALL 911.] Future Scheduled Test CARDIOVASC ULAR SYSTEM; RN TO ASSESS/TEACH, GROUND CONTROL APPROACH TECHNICIAN/CREATIVE PRODUCER TO OBSERVE/TEACH RELATED TO ALTERED CARDIOVASCULAR STATUS TO MINIMIZE COMPLICATIONS AND REDUCE HOSPITALIZATION. [code = CARDIOVASCULAR SYSTEM; RN TO ASSESS/TEACH, GROUND CONTROL APPROACH TECHNICIAN/CREATIVE PRODUCER TO OBSERVE/TEACH RELATED TO ALTERED CARDIOVASCULAR STATUS TO MINIMIZE COMPLICATIONS AND REDUCE HOSPITALIZATION.] Future Scheduled Test HEART FAIL URE; RN TO ASSESS/TEACH, GROUND CONTROL APPROACH TECHNICIAN/CREATIVE PRODUCER TO OBSERVE/TEACH CARDIOPULMONARY SYSTEM TO IDENTIFY SIGNS OF DECOMPENSATION AND INTERVENE TO MINIMIZE THE SEVERITY OF FLUID OVERLOAD. OBSERVE PATIENT ABILITY TO MONITOR AND RECORD DAILY WEIGHTS AND VITAL SIGNS, INCLUDING PULSE AND BLOOD PRESSURE; RECORD PATIENT REPORTED WEIGHT, OR WEIGH PATIENT NEEDED. REPORT INCREASED EDEMA OR WEIGHT GAIN OF >2 LBS IN 1 DAY OR >5 LBS IN 1 WEEK OR 5LBS OR MORE OVER TARGET WEIGHT. MAY MEASURE ABDOMINAL GIRTH IF UNABLE TO WEIGH. SCALES AND BP MONITOR TO BE PROVIDED IF NEEDED. [code = HEART FAILURE; RN TO ASSESS/TEACH, GROUND CONTROL APPROACH TECHNICIAN/CREATIVE PRODUCER TO OBSERVE/TEACH CARDIOPULMONARY SYSTEM TO IDENTIFY SIGNS OF DECOMPENSATION AND INTERVENE TO MINIMIZE THE SEVERITY OF FLUID OVERLOAD. OBSERVE PATIENT ABILITY TO MONITOR AND RECORD DAILY WEIGHTS AND VITAL SIGNS, INCLUDING PULSE AND BLOOD PRESSURE; RECORD PATIENT REPORTED WEIGHT, OR WEIGH PATIENT NEEDED. REPORT INCREASED EDEMA OR WEIGHT GAIN OF >2 LBS IN 1 DAY OR >5 LBS IN 1 WEEK OR 5LBS OR MORE OVER TARGET WEIGHT. MAY MEASURE ABDOMINAL GIRTH IF UNABLE TO WEIGH. SCALES AND BP MONITOR TO BE PROVIDED IF NEEDED.] Future Scheduled Test RESPIRATOR Y SYSTEM MANAGEMENT; RN TO ASSESS AND TEACH, GROUND CONTROL APPROACH TECHNICIAN/CREATIVE PRODUCER TO OBSERVE AND TEACH RELATED TO ALTERED RESPIRATORY STATUS TO MINIMIZE COMPLICATIONS AND REDUCE HOSPITALIZATION. [code = RESPIRATORY SYSTEM MANAGEMENT; RN TO ASSESS AND TEACH, GROUND CONTROL APPROACH TECHNICIAN/CREATIVE PRODUCER TO OBSERVE AND TEACH RELATED TO ALTERED RESPIRATORY STATUS TO MINIMIZE COMPLICATIONS AND REDUCE HOSPITALIZATION.] Future Scheduled Test COPD MANAG EMENT; RN TO ASSESS AND TEACH, GROUND CONTROL APPROACH TECHNICIAN/CREATIVE PRODUCER TO OBSERVE AND TEACH SIGNS/SYMPTOMS OF COPD EXACERBATION AND PROVIDE EARLY INTERVENTIONS TO MINIMIZE RISK OF HOSPITALIZATION. RN/GROUND CONTROL APPROACH TECHNICIAN/CREATIVE PRODUCER TO INSTRUCT ON SELF-CARE MANAGEMENT INCLUDING BREATHING TECHNIQUES, AIRWAY CLEARANCE, AND PROPER USE OF COPD MEDICATIONS. RN TO ASSESS AND TEACH, GROUND CONTROL APPROACH TECHNICIAN/CREATIVE PRODUCER TO OBSERVE AND TEACH PATIENT/CAREGIVER ABILITY TO MONITOR AND RECORD VITAL SIGNS INCLUDING PULSE OXIMETRY AND BLOOD PRESSURE. PULSE OXIMETER AND BP MONITOR TO BE PROVIDED IF NEEDED . [code = COPD MANAGEMENT; RN TO ASSESS AND TEACH, GROUND CONTROL APPROACH TECHNICIAN/CREATIVE PRODUCER TO OBSERVE AND TEACH SIGNS/SYMPTOMS OF COPD EXACERBATION AND PROVIDE EARLY INTERVENTIONS TO MINIMIZE RISK OF HOSPITALIZATION. RN/GROUND CONTROL APPROACH TECHNICIAN/CREATIVE PRODUCER TO INSTRUCT ON SELF-CARE MANAGEMENT INCLUDING BREATHING TECHNIQUES, AIRWAY CLEARANCE, AND PROPER USE OF COPD MEDICATIONS. RN TO ASSESS AND TEACH, GROUND CONTROL APPROACH TECHNICIAN/CREATIVE PRODUCER TO OBSERVE AND TEACH PATIENT/CAREGIVER ABILITY TO MONITOR AND RECORD VITAL SIGNS INCLUDING PULSE OXIMETRY AND BLOOD PRESSURE. PULSE OXIMETER AND BP MONITOR TO BE PROVIDED IF NEEDED .] Future Scheduled Test OXYGEN THE RAPY; RN/GROUND CONTROL APPROACH TECHNICIAN/CREATIVE PRODUCER TO INSTRUCT ON OXYGEN MANAGEMENT INCLUDING: ADMINISTRATION AT 2.5 L/MIN VIA NC CONTINUOUS/PRN FOR SOB AND AMS , CARE OF EQUIPMENT AND SAFETY. [code = OXYGEN THERAPY; RN/GROUND CONTROL APPROACH TECHNICIAN/CREATIVE PRODUCER TO INSTRUCT ON OXYGEN MANAGEMENT INCLUDING: ADMINISTRATION AT 2.5 L/MIN VIA NC CONTINUOUS/PRN FOR SOB AND AMS , CARE OF EQUIPMENT AND SAFETY.] Future Scheduled Test PAIN MANAG EMENT; RN TO ASSESS AND TEACH, CREATIVE PRODUCER/GROUND CONTROL APPROACH TECHNICIAN TO OBSERVE AND TEACH AND PROVIDE EDUCATION ON PAIN MANAGEMENT TECHNIQUES. [code = PAIN MANAGEMENT; RN TO ASSESS AND TEACH, CREATIVE PRODUCER/GROUND CONTROL APPROACH TECHNICIAN TO OBSERVE AND TEACH AND PROVIDE EDUCATION ON PAIN MANAGEMENT TECHNIQUES.] Future Scheduled Test FALL REDUC TION MANAGEMENT; RN TO ASSESS AND OBSERVE, GROUND CONTROL APPROACH TECHNICIAN/CREATIVE PRODUCER TO OBSERVE FALL RISK FACTORS AND EDUCATE PATIENT/CAREGIVER ON STRATEGIES TO MINIMIZE THE RISK OF FALLING. [code = FALL REDUCTION MANAGEMENT; RN TO ASSESS AND OBSERVE, GROUND CONTROL APPROACH TECHNICIAN/CREATIVE PRODUCER TO OBSERVE FALL RISK FACTORS AND EDUCATE PATIENT/CAREGIVER ON STRATEGIES TO MINIMIZE THE RISK OF FALLING.] Future Scheduled Test PHYSICAL T HERAPIST TO EVALUATE FOR BALANCE STRENGTHENING GAIT TRAINING AND ENDURANCE [code = PHYSICAL THERAPIST TO EVALUATE FOR BALANCE STRENGTHENING GAIT TRAINING AND ENDURANCE ] Future Scheduled Test OCCUPATION AL THERAPIST TO EVALUATE FOR UPPER BODY STRENGTHENING AND ADLS [code = OCCUPATIONAL THERAPIST TO EVALUATE FOR UPPER BODY STRENGTHENING AND ADLS ] Goal 2024-07-15 Patient Goal - I NDEPENDENCE WITH FUNCTIONAL ACTIVITIES, NOT GO BACK IN HOSPITAL Goal Patient Goal - I NDEPENDENCE WITH FUNCTIONAL ACTIVITIES, NOT GO BACK IN HOSPITAL Goal Provider Goal - A PLAN OF CARE WILL BE ESTABLISHED THAT MEETS THE PATIENTS NEEDS. PATIENT WILL DEMONSTRATE OXYGEN SATURATION WITHIN NORMAL LIMITS OR PATIENTS OPTIMAL LEVEL ESTABLISHED BY THE PHYSICIAN THROUGHOUT CARE. CHANGES TO CO-MORBID CONDITIONS AND ANY NEW CONDITIONS WILL BE IDENTIFIED AND REPORTED TO THE PHYSICIAN. Goal Provider Goal - PATIENT/CAREGIVER WILL VERBALIZE UNDERSTANDING OF SIGNS AND SYMPTOMS THAT PUT THE PATIENT AT RISK FOR HOSPITALIZATION /EMERGENCY ROOM VISITS, WHEN TO NOTIFY NURSE/PHYSICIAN OF COMPLICATIONS/DECLINE AND WHEN TO CALL 911. Goal Provider Goal - PATIENT / CAREGIVER WILL VERBALIZE/DEMONSTRATE UNDERSTANDING OF MEASURES TO MANAGE ALTERED CARDIOVASCULAR STATUS BY END OF EPISODE Goal Provider Goal - PATIENT / CAREGIVER WILL VERBALIZE/DEMONSTRATE AN ABILITY TO ADHERE TO SELF-MANAGEMENT OF HF TO MINIMIZE COMPLICATIONS AND AVOID HOSPITALIZATION BY END OF EPISODE. Goal Provider Goal - PATIENT / CAREGIVER WILL VERBALIZE/DEMONSTRATE UNDERSTANDING OF MEASURES TO MANAGE ALTERED RESPIRATORY STATUS BY END OF EPISODE. Goal Provider Goal - PATIENT / CAREGIVER WILL VERBALIZE/DEMONSTRATE AN ABILITY TO ADHERE TO SELF-MANAGEMENT OF COPD TO MINIMIZE COMPLICATIONS AND AVOID HOSPITALIZATION BY END OF EPISODE. Goal Provider Goal - PATIENT/CAREGIVER WILL VERBALIZE/DEMONSTRATE UNDERSTANDING OF CARE AND MANAGEMENT OF OXYGEN THERAPY BY END OF EPISODE Goal Provider Goal - PATIENT / CAREGIVER WILL VERBALIZE / DEMONSTRATE UNDERSTANDING OF PAIN CONTROL MEASURES BY END OF EPISODE Goal Provider Goal - PATIENT/CAREGIVER WILL VERBALIZE/DEMONSTRATE UNDERSTANDING OF FALL RISK FACTORS AND IMPLEMENT STRATEGIES TO MINIMIZE FALL RISK. PATIENT/CAREGIVER WILL VERBALIZE/DEMONSTRATE AN ABILITY TO ADHERE TO FALL REDUCTION SELF-MANAGEMENT AND LIFE-STYLE CHANGES BY END OF EPISODE Goal Provider Goal - Goal Provider Goal - Encounters Start Date/Time End Date/Time Encounter Type Admission Type Attending [facility] Care Department Encounter ID Discharge Date Discharge Status Discharge Condition Discharge Reason Percent Goals Met 2024-07-16 00:00:00 2024-09-13 00:00:00 Outpatient RECERTIFIC DENNIS DELACRUZ [facility] [id number] 58.33
--- OUTSIDE RECORDS SUMMARY | 2024-09-12 20:00 | XMS_ITS | Clinical Summary ---
Author Organization Unknown Care Team Providers Care Cut Off Saw Operator Metal Name Role Phone PATRICIA ZAPATA, URI Unavailable Unavailable RADHA PT, LAURITA Unavailable Unavailable ROCKY OT, ARABELLA Unavailable Unavailable ZAYDA ST, CIARRA Unavailable Unavailable LU MARTIN, LAYO Unavailable Unavailable RILEY RN, DENNIS Unavailable Unavailable JHONNY HALL, RENETTA Unavailable Unavailable Payers Payer Name Policy Type Policy Number Effective Date Expira tion Date ESTHER [id number] Problems Condition Name Condition Details Condition Category [...] 05-10 00:00: 00 ATHSCL HEART DISEASE OF [place] CORONARY ARTERY W/O ANG PCTRS Active 05-10 [...] ON SUPPLEMENTAL OXYGEN Active 05-10 00:00: 00 HALFWAY (CURRENT) USE OF ANTICOAGULAN TS Active 05-10 00:00: 00 HALFWAY (CURRENT) USE OF INHALED STEROIDS Active 05-10 [...] 04-24 00:00: 00 10-13 23:59 :00 No [id number] HTN 1 tablet DAILY 1 tablet DAILY (route: oral) Med Classific ation: Cardiovas cular Therapy Agents furosemide 40 mg tablet 04-24 00:00: 00 10-13 23:59 :00 No [id number] FLUID 1 tablet DAILY 1 tablet DAILY (route: oral) Med Classific ation: Cardiovas cular Therapy Agents valsartan 80 mg tablet 04-24 00:00: 00 04-29 00:00 :00 No [id number] Per instruc tions Per instructio ns (route: oral) Med Classific ation: Cardiovas cular Therapy Agents hydroxyzine HCl 25 mg tablet 04-17 00:00: 00 10-13 23:59 :00 No [id number] ANXIETY 1 tablet 2 TIMES DAILY 1 tablet 2 TIMES DAILY (route: oral) Med Classific ation: Central Nervous System Agents alendronate 70 mg tablet - 00:00: 00 10-13 23:59 :00 No [id number] OSTEOPOROSI S 1 tablet WEEKLY 1 tablet WEEKLY (route: oral) Med Classific ation: Endocrine Trelegy Ellipta 200 mcg-62.5 mcg-25 mcg powder for inhalation 04-14 00:00: 00 10-13 23:59 :00 No [id number] BREATHING 1 inhalat ion DAILY 1 inhalation DAILY (route: inhalation ) Med Classific ation: Respirato ry Therapy Agents duloxetine 60 mg capsule,del ayed release 04-11 00:00: 00 10-13 23:59 :00 No [id number] DEPRESSION 1 capsule DAILY 1 capsule DAILY (route: oral) Med Classific ation: Central Nervous System Agents furosemide 20 mg tablet - 00:00: 00 04-29 00:00 :00 No [id number] Per instruc tions Per instructio ns (route: oral) Med Classific ation: Cardiovas cular Therapy Agents donepezil 10 mg tablet - 00:00: 00 10-13 23:59 :00 No [id number] MEMORY 1 tablet DAILY 1 tablet DAILY (route: oral) Med Classific ation: Cognitive Disorder Therapy levothyroxi ne 125 mcg tablet 2- 00:00: 00 10-13 23:59 :00 No [id number] THYROID 1 tablet DAILY 1 tablet DAILY (route: oral) Med Classific ation: Endocrine losartan 50 mg-hydrochl orothiazide 12.5 mg tablet 2- 00:00: 00 10-13 23:59 :00 No [id number] HTN 1 tablet DAILY 1 tablet DAILY (route: oral) Med Classific ation: Cardiovas cular Therapy Agents omeprazole 40 mg capsule,del ayed release 2-21 00:00: 00 10-13 23:59 :00 No [id number] GERD 1 capsule DAILY 1 capsule DAILY (route: oral) Med Classific ation: Gastroint estinal Therapy Agents amlodipine 5 mg tablet 2-20 00:00: 00 10-13 23:59 :00 No [id number] HTN 1 tablet DAILY 1 tablet DAILY (route: oral) Med Classific ation: Cardiovas cular Therapy Agents atenolol 50 mg tablet 2-20 00:00: 00 04-29 00:00 :00 No [id number] Per instruc tions Per instructio ns (route: oral) Med Classific ation: Cardiovas cular Therapy Agents buspirone 30 mg tablet 2-20 00:00: 00 10-13 23:59 :00 No [id number] DEPRESSION 1 tablet 3 TIMES DAILY 1 tablet 3 TIMES DAILY (route: oral) Med Classific ation: Central Nervous System Agents pravastatin 20 mg tablet 2-20 00:00: 00 10-13 23:59 :00 No [id number] CHOLESTEROL 1 tablet DAILY 1 tablet DAILY (route: oral) Med Classific ation: Cardiovas cular Therapy Agents Breo Ellipta 100 mcg-25 mcg/dose powder for inhalation - 00:00: 00 10-13 23:59 :00 No [id number] BREATHING 1 inhalat ion DAILY 1 inhalation DAILY (route: inhalation ) Med Classific ation: Respirato ry Therapy Agents trazodone 100 mg tablet -22 00:00: 00 10-13 23:59 :00 No [id number] SLEEP 1 tablet DAILY 1 tablet DAILY (route: oral) Med Classific ation: Central Nervous System Agents Entresto 24 mg-26 mg tablet 5-21 00:00: 00 10-13 23:59 :00 No [id number] CHF 1 tablet 2 TIMES DAILY 1 tablet 2 TIMES DAILY (route: oral) Med Classific ation: Cardiovas cular Therapy Agents doxycycline hyclate 100 mg capsule 9-06 00:00: 00 02-21 00:00 :00 No [id number] ANTIBIOTIC 1 capsule 2 TIMES DAILY 1 capsule 2 TIMES DAILY (route: oral) Med Classific ation: Anti-Infe ctive Agents ipratropium 0.5 mg-albutero l 3 mg (2.5 mg base)/3 mL nebulizatio n soln 10-14 00:00: 00 02-21 00:00 :00 No [id number] BREATHING 3 mL 3 TIMES DAILY 3 mL 3 TIMES DAILY (route: inhalation ) Med Classific ation: Respirato ry Therapy Agents levofloxaci n 750 mg tablet 10-14 00:00: 00 02-21 00:00 :00 No [id number] ANTIBIOTIC 1 tablet DAILY 1 tablet DAILY (route: oral) Med Classific ation: Anti-Infe ctive Agents oxycodone 5 mg tablet 10-14 00:00: 00 02-21 00:00 :00 No [id number] PAIN 1 tablet EVERY 8 HOURS 1 tablet EVERY 8 HOURS (route: oral) Med Classific ation: Analgesic , Anti-infl ammatory or Antipyret ic trazodone 150 mg tablet 10-05 00:00: 00 05-17 00:00 :00 No [id number] DEPRESSION AND SLEEP 1 tablet BEDTIME 1 tablet BEDTIME (route: oral) Med Classific ation: Central Nervous System Agents albuterol sulfate 2.5 mg/3 mL (0.083 %) solution for nebulizatio n 10-03 00:00: 00 05-17 00:00 :00 No [id number] SHORTNESS OF BREATH 2.5 mg EVERY 4 HOURS 2.5 mg EVERY 4 HOURS (route: inhalation ) Med Classific ation: Respirato ry Therapy Agents clotrimazol e 1 % topical cream 10-03 00:00: 00 10-24 00:00 :00 No [id number] Unavailable Per instruc tions EVERY 12 HOURS DIRECTED Per instructio ns EVERY 12 HOURS DIRECTED (route: topical) Med Classific ation: Dermatolo gical hydroxyzine HCl 50 mg tablet 10-03 00:00: 00 10-24 00:00 :00 No [id number] Unavailable Per instruc tions EVERY 6 HOURS NEEDED Per instructio ns EVERY 6 HOURS NEEDED (route: oral) Med Classific ation: Central Nervous System Agents ondansetron 8 mg disintegrat ing tablet 10-03 00:00: 00 10-24 00:00 :00 No [id number] Unavailable Per instruc tions EVERY 8 HOURS NEEDED Per instructio ns EVERY 8 HOURS NEEDED (route: oral) Med Classific ation: Gastroint estinal Therapy Agents sulfamethox azole 800 mg-trimetho prim 160 mg tablet 10-03 00:00: 00 10-24 00:00 :00 No [id number] Unavailable Per instruc tions TWICE DAILY FOR 10 DAYS Per instructio ns TWICE DAILY FOR 10 DAYS (route: oral) Med Classific ation: Anti-Infe ctive Agents albuterol sulfate HFA 90 mcg/actuati on aerosol inhaler 09-27 00:00: 00 Yes [id number] BREATHING 2 puff EVERY 4 HOURS 2 puff EVERY 4 HOURS (route: inhalation ) Med Classific ation: Respirato ry Therapy Agents memantine 5 mg tablet 09-26 00:00: 00 Yes [id number] DEMENTIA 1 tablet 2 TIMES DAILY 1 tablet 2 TIMES DAILY (route: oral) Med Classific ation: Cognitive Disorder Therapy amlodipine 5 mg tablet 09-21 00:00: 00 05-17 00:00 :00 No [id number] BLOOD PRESSURE 1 tablet DAILY 1 tablet DAILY (route: oral) Med Classific ation: Cardiovas cular Therapy Agents levothyroxi ne 125 mcg tablet 09-21 00:00: 00 Yes [id number] THYROID 1 tablet DAILY 1 tablet DAILY (route: oral) Med Classific ation: Endocrine duloxetine 60 mg capsule,del ayed release 09-19 00:00: 00 Yes [id number] MOOD 1 capsule DAILY 1 capsule DAILY (route: oral) Med Classific ation: Central Nervous System Agents famotidine 40 mg tablet 09-19 00:00: 00 05-17 00:00 :00 No [id number] GERD 1 tablet DAILY 1 tablet DAILY (route: oral) Med Classific ation: Gastroint estinal Therapy Agents hydroxyzine HCl 25 mg tablet 09-19 00:00: 00 Yes [id number] ANXIETY Per instruc tions EVERY 6 HOURS Per instructio ns EVERY 6 HOURS (route: oral) Med Classific ation: Central Nervous System Agents atenolol 25 mg tablet 10-25 00:00: 00 05-17 00:00 :00 No [id number] BLOOD PRESSURE 1 tablet DAILY 1 tablet DAILY (route: oral) Med Classific ation: Cardiovas cular Therapy Agents donepezil 10 mg tablet 10-25 00:00: 00 Yes [id number] DEMENTIA 1 tablet DAILY 1 tablet DAILY (route: oral) Med Classific ation: Cognitive Disorder Therapy Eliquis 5 mg tablet 10-25 00:00: 00 Yes [id number] BLOOD THINNER 1 tablet 2 TIMES DAILY 1 tablet 2 TIMES DAILY (route: oral) Med Classific ation: Hematolog ical Agents Entresto 49 mg-51 mg tablet 10-25 00:00: 00 05-17 00:00 :00 No [id number] HEART FAILURE 1 tablet 2 TIMES DAILY 1 tablet 2 TIMES DAILY (route: oral) Med Classific ation: Cardiovas cular Therapy Agents pravastatin 20 mg tablet 10-25 00:00: 00 02-21 00:00 :00 No [id number] CHOLESTEROL 1 tablet BEDTIME 1 tablet BEDTIME (route: oral) Med Classific ation: Cardiovas cular Therapy Agents alendronate 70 mg tablet 02-14 00:00: 00 Yes [id number] OSTEOPOROSI S 1 tablet WEEKLY 1 tablet WEEKLY (route: oral) Med Classific ation: Endocrine atorvastati n 40 mg tablet 02-14 00:00: 00 Yes [id number] CHOLESTEROL 1 tablet BEDTIME 1 tablet BEDTIME (route: oral) Med Classific ation: Cardiovas cular Therapy Agents Breyna 160 mcg-4.5 mcg/actuati on HFA aerosol inhaler 02-14 00:00: 00 05-17 00:00 :00 No [id number] COPD 2 puff 2 TIMES DAILY 2 puff 2 TIMES DAILY (route: inhalation ) Med Classific ation: Respirato ry Therapy Agents buspirone 30 mg tablet 02-14 00:00: 00 Yes [id number] MOOD 1 tablet 2 TIMES DAILY 1 tablet 2 TIMES DAILY (route: oral) Med Classific ation: Central Nervous System Agents guaifenesin ER 600 mg tablet, extended release 12 hr 02-14 00:00: 00 Yes [id number] COUGH 2 tablet 2 TIMES DAILY 2 tablet 2 TIMES DAILY (route: oral) Med Classific ation: Respirato ry Therapy Agents prednisone 20 mg tablet 02-14 00:00: 00 05-17 00:00 :00 No [id number] COPD 2 tablet 2 TIMES DAILY 2 tablet 2 TIMES DAILY (route: oral) Med Classific ation: Endocrine Trelegy Ellipta 100 mcg-62.5 mcg-25 mcg powder for inhalation 02-14 00:00: 00 Yes [id number] COPD 1 inhalat ion DAILY 1 inhalation DAILY (route: inhalation ) Med Classific ation: Respirato ry Therapy Agents acetazolami de 250 mg tablet 05-17 00:00: 00 Yes [id number] SHORTNESS OF BREATH 1 tablet 2 TIMES DAILY 1 tablet 2 TIMES DAILY (route: oral) Med Classific ation: Cardiovas cular Therapy Agents bumetanide 2 mg tablet 05-17 00:00: 00 Yes [id number] EDEMA 1 tablet 2 TIMES DAILY 1 tablet 2 TIMES DAILY (route: oral) Med Classific ation: Cardiovas cular Therapy Agents diltiazem 120 mg tablet 05-17 00:00: 00 Yes [id number] ANGINA 1 tablet DAILY 1 tablet DAILY (route: oral) Med Classific ation: Cardiovas cular Therapy Agents levofloxaci n 750 mg tablet 05-17 00:00: 00 05-23 23:59 :00 No [id number] ANTIBIOTIC 1 tablet DAILY 1 tablet DAILY (route: oral) Med Classific ation: Anti-Infe ctive Agents metoprolol tartrate 25 mg tablet 05-17 00:00: 00 Yes [id number] BLOOD PRESSURE 1 tablet 2 TIMES DAILY 1 tablet 2 TIMES DAILY (route: oral) Med Classific ation: Cardiovas cular Therapy Agents Stool Softener 100 mg capsule 24 00:00: 00 Yes [id number] CONSTIPATIO N 100 mg 2 TIMES DAILY 100 mg 2 TIMES DAILY (route: oral) Med Classific ation: Gastroint estinal Therapy Agents valsartan 40 mg tablet 08-01 00:00: 00 Yes [id number] BP 40 mg 2 TIMES DAILY 40 [...] SIMS MD RN TO OBSERVE AND ASSESS, KNITTING TEACHER/MULTIMEDIA TEACHER TO OBSERVE FOR RISK FOR FALLS AND INSTRUCT IN FALL PREVENTION, HOME SAFETY, MEDICATION MANAGEMENT, INFECTION PREVENTION, AND NUTRITION MANAGEMENT. RN/KNITTING TEACHER/MULTIMEDIA TEACHER NURSE MAY PERFORM O2 SATURATION LEVEL ON ADMISSION AND PRN FOR SOB AND AMS FOR RN TO ASSESS/KNITTING TEACHER TO OBSERVE PATIENT, WITH NOTIFICATION TO THE PHYSICIAN IF SATURATION IS 90% IN THE ABSENCE OF MORE SPECIFIC PARAMETERS FROM THE PHYSICIAN. AGENCY MAY PERFORM A RESUMPTION OF CARE VISIT FOLLOWING ANY HOSPITAL ADMISSION. RN/KNITTING TEACHER/MULTIMEDIA TEACHER TO MONITOR CO-MORBID CONDITIONS LISTED ON THE PLAN OF CARE AND ANY NEW CONDITIONS THAT PRESENT THEMSELVES DURING THIS EPISODE TO IDENTIFY CHANGES AND INTERVENE TO MINIMIZE COMPLICATIONS. [code = RN TO OBSERVE, ASSESS, EVALUATE, AND DEVELOP AN INDIVIDUALIZED PLAN OF CARE. AGENCY MAY ACCEPT ORDERS FROM CONSULTING PHYSICIANS URI SIMS MD RN TO OBSERVE AND ASSESS, KNITTING TEACHER/MULTIMEDIA TEACHER TO OBSERVE FOR RISK FOR FALLS AND INSTRUCT IN FALL PREVENTION, HOME SAFETY, MEDICATION MANAGEMENT, INFECTION PREVENTION, AND NUTRITION MANAGEMENT. RN/KNITTING TEACHER/MULTIMEDIA TEACHER NURSE MAY PERFORM O2 SATURATION LEVEL ON ADMISSION AND PRN FOR SOB AND AMS FOR RN TO ASSESS/KNITTING TEACHER TO OBSERVE PATIENT, WITH NOTIFICATION TO THE PHYSICIAN IF SATURATION IS 90% IN THE ABSENCE OF MORE SPECIFIC PARAMETERS FROM THE PHYSICIAN. AGENCY MAY PERFORM A RESUMPTION OF CARE VISIT FOLLOWING ANY HOSPITAL ADMISSION. RN/KNITTING TEACHER/MULTIMEDIA TEACHER TO MONITOR CO-MORBID CONDITIONS LISTED ON THE PLAN OF CARE AND ANY NEW CONDITIONS THAT PRESENT THEMSELVES DURING THIS EPISODE TO IDENTIFY CHANGES AND INTERVENE TO MINIMIZE COMPLICATIONS.] Future Scheduled Test RISK FOR H OSPITALIZATION; RN TO ASSESS/TEACH, MULTIMEDIA TEACHER/KNITTING TEACHER TO OBSERVE/TEACH PATIENT/CAREGIVER ON RISK FOR HOSPITALIZATION/EMERGENCY ROOM VISITS, TEACH SIGNS AND SYMPTOMS THAT PUT PATIENT AT RISK, WHEN TO NOTIFY NURSE/PHYSICIAN OF COMPLICATIONS/DECLINE, AND WHEN TO CALL 911. [code = RISK FOR HOSPITALIZATION; RN TO ASSESS/TEACH, MULTIMEDIA TEACHER/KNITTING TEACHER TO OBSERVE/TEACH PATIENT/CAREGIVER ON RISK FOR HOSPITALIZATION/EMERGENCY ROOM VISITS, TEACH SIGNS AND SYMPTOMS THAT PUT PATIENT AT RISK, WHEN TO NOTIFY NURSE/PHYSICIAN OF COMPLICATIONS/DECLINE, AND WHEN TO CALL 911.] Future Scheduled Test CARDIOVASC ULAR SYSTEM; RN TO ASSESS/TEACH, KNITTING TEACHER/MULTIMEDIA TEACHER TO OBSERVE/TEACH RELATED TO ALTERED CARDIOVASCULAR STATUS TO MINIMIZE COMPLICATIONS AND REDUCE HOSPITALIZATION. [code = CARDIOVASCULAR SYSTEM; RN TO ASSESS/TEACH, KNITTING TEACHER/MULTIMEDIA TEACHER TO OBSERVE/TEACH RELATED TO ALTERED CARDIOVASCULAR STATUS TO MINIMIZE COMPLICATIONS AND REDUCE HOSPITALIZATION.] Future Scheduled Test HEART FAIL URE; RN TO ASSESS/TEACH, KNITTING TEACHER/MULTIMEDIA TEACHER TO OBSERVE/TEACH CARDIOPULMONARY SYSTEM TO IDENTIFY SIGNS [...] [code = HEART FAILURE; RN TO ASSESS/TEACH, KNITTING TEACHER/MULTIMEDIA TEACHER TO OBSERVE/TEACH CARDIOPULMONARY SYSTEM TO IDENTIFY SIGNS [...] SYSTEM MANAGEMENT; RN TO ASSESS AND TEACH, KNITTING TEACHER/MULTIMEDIA TEACHER TO OBSERVE AND TEACH RELATED TO ALTERED RESPIRATORY STATUS TO MINIMIZE COMPLICATIONS AND REDUCE HOSPITALIZATION. [code = RESPIRATORY SYSTEM MANAGEMENT; RN TO ASSESS AND TEACH, KNITTING TEACHER/MULTIMEDIA TEACHER TO OBSERVE AND TEACH RELATED TO ALTERED RESPIRATORY STATUS TO MINIMIZE COMPLICATIONS AND REDUCE HOSPITALIZATION.] Future Scheduled Test COPD MANAG EMENT; RN TO ASSESS AND TEACH, KNITTING TEACHER/MULTIMEDIA TEACHER TO OBSERVE AND TEACH SIGNS/SYMPTOMS OF COPD EXACERBATION AND PROVIDE EARLY INTERVENTIONS TO MINIMIZE RISK OF HOSPITALIZATION. RN/KNITTING TEACHER/MULTIMEDIA TEACHER TO INSTRUCT ON SELF-CARE MANAGEMENT INCLUDING BREATHING TECHNIQUES, AIRWAY CLEARANCE, AND PROPER USE OF COPD MEDICATIONS. RN TO ASSESS AND TEACH, KNITTING TEACHER/MULTIMEDIA TEACHER TO OBSERVE AND TEACH PATIENT/CAREGIVER ABILITY TO MONITOR AND RECORD VITAL SIGNS INCLUDING PULSE OXIMETRY AND BLOOD PRESSURE. PULSE OXIMETER AND BP MONITOR TO BE PROVIDED IF NEEDED . [code = COPD MANAGEMENT; RN TO ASSESS AND TEACH, KNITTING TEACHER/MULTIMEDIA TEACHER TO OBSERVE AND TEACH SIGNS/SYMPTOMS OF COPD EXACERBATION AND PROVIDE EARLY INTERVENTIONS TO MINIMIZE RISK OF HOSPITALIZATION. RN/KNITTING TEACHER/MULTIMEDIA TEACHER TO INSTRUCT ON SELF-CARE MANAGEMENT INCLUDING BREATHING TECHNIQUES, AIRWAY CLEARANCE, AND PROPER USE OF COPD MEDICATIONS. RN TO ASSESS AND TEACH, KNITTING TEACHER/MULTIMEDIA TEACHER TO OBSERVE AND TEACH PATIENT/CAREGIVER ABILITY TO MONITOR AND RECORD VITAL SIGNS INCLUDING PULSE OXIMETRY AND BLOOD PRESSURE. PULSE OXIMETER AND BP MONITOR TO BE PROVIDED IF NEEDED .] Future Scheduled Test OXYGEN THE RAPY; RN/KNITTING TEACHER/MULTIMEDIA TEACHER TO INSTRUCT ON OXYGEN MANAGEMENT INCLUDING: ADMINISTRATION AT 2.5 L/MIN VIA NC CONTINUOUS/PRN FOR SOB AND AMS , CARE OF EQUIPMENT AND SAFETY. [code = OXYGEN THERAPY; RN/KNITTING TEACHER/MULTIMEDIA TEACHER TO INSTRUCT ON OXYGEN MANAGEMENT INCLUDING: ADMINISTRATION AT 2.5 L/MIN VIA NC CONTINUOUS/PRN FOR SOB AND AMS , CARE OF EQUIPMENT AND SAFETY.] Future Scheduled Test PAIN MANAG EMENT; RN TO ASSESS AND TEACH, MULTIMEDIA TEACHER/KNITTING TEACHER TO OBSERVE AND TEACH AND PROVIDE EDUCATION ON PAIN MANAGEMENT TECHNIQUES. [code = PAIN MANAGEMENT; RN TO ASSESS AND TEACH, MULTIMEDIA TEACHER/KNITTING TEACHER TO OBSERVE AND TEACH AND PROVIDE EDUCATION ON PAIN MANAGEMENT TECHNIQUES.] Future Scheduled Test FALL REDUC TION MANAGEMENT; RN TO ASSESS AND OBSERVE, KNITTING TEACHER/MULTIMEDIA TEACHER TO OBSERVE FALL RISK FACTORS AND EDUCATE PATIENT/CAREGIVER ON STRATEGIES TO MINIMIZE THE RISK OF FALLING. [code = FALL REDUCTION MANAGEMENT; RN TO ASSESS AND OBSERVE, KNITTING TEACHER/MULTIMEDIA TEACHER TO OBSERVE FALL RISK FACTORS AND EDUCATE [...] End Date/Time Encounter Type Admission Type Attending [facility] Care Department Encounter ID Discharge Date Discharge Status Discharge Condition Discharge Reason Percent Goals Met 2024-07-16 00:00:00 2024-09-13 00:00:00 Outpatient RECERTIFIC DENNIS DELACRUZ [facility] [id number] 58.33
== END 2024-08-09 12:57 | DRG 291 ==
LOC: ER 14:41 → ICU 15:02 → 2ND 08-06 18:00
PROVIDERS: Internal Medicine Pulmonary Disease; Admitting Provider Internal Medicine Adolescent Medicine; Emergency Provider Emergency Medicine; Visit Provider Internal Medicine Adolescent Medicine
DX: I11.0 Hypertensive heart disease with heart failure (principal); I50.33 Acute on chronic diastolic (congestive) heart failure; J96.02 Acute respiratory failure with hypercapnia; J96.21 Acute and chronic respiratory failure with hypoxia; J44.1 Chronic obstructive pulmonary disease with (acute) exacerbation; Z68.41 Body mass index [BMI] 40.0-44.9, adult; I48.91 Unspecified atrial fibrillation; R26.2 Difficulty in walking, not elsewhere classified; R25.1 Tremor, unspecified; E03.9 Hypothyroidism, unspecified; F41.9 Anxiety disorder, unspecified; F32.A Depression, unspecified; F03.90 Unspecified dementia, unspecified severity, without behavioral disturbance, psychotic disturbance, mood disturbance, and anxiety; E66.9 Obesity, unspecified; Z99.81 Dependence on supplemental oxygen; Z79.01 Long term (current) use of anticoagulants; Z79.02 Long term (current) use of antithrombotics/antiplatelets; Z79.899 Other long term (current) drug therapy; Z79.83 Long term (current) use of bisphosphonates; Z79.890 Hormone replacement therapy; Z88.2 Allergy status to sulfonamides; Z88.8 Allergy status to other drugs, medicaments and biological substances; Z86.711 Personal history of pulmonary embolism
CPT/HCPCS: 36415; 71045; 80053; 80061; 81001; 82803; 83605; 83735; 83880; 84145; 84484; 85025; 87070; 87081; 87086; 87205; 87506; 87633; 93005; 94640; 94660; 94761; 97110; 97116; 97162; 97165; 97530; J1885; J1938; J2919; J7050; J7614

== ENCOUNTER 2024-08-28 11:28 | Emergency (ER) | payer MEDICARE, SELFPAY ==
--- OUTSIDE RECORDS SUMMARY | 2024-08-21 14:15 | XMS_ITS | Encounter Summary ---
Author Organization [facility] Address [address] [place] [address] Care Team Providers Care Web Press Operator Apprentice Name Role Phone Earl Dumont MD Primary Care Provider [phone] Reason for Visit * Reason Comments Medicare Wellness-subsequent SMW Encounter Details Date Type Department Care Team (Late st Contact Info) Description 08/21/2024 2:15 PM EDT Office Visit [facility] [address] [place] [address] Earl Dumont MD [address] [place] [address] Medicare annual wellness visit, subsequent (Primary Dx); Right leg pain; Essential hypertension; Diastolic dysfunction with chronic heart failure; Acquired hypothyroidism; Age-related osteoporosis without current pathological fracture; Generalized anxiety disorder; Recurrent major depressive disorder, in full remission; History of pulmonary embolism; Multiple subsegmental pulmonary emboli without acute cor pulmonale; Hypercholesterolemia; Lower extremity edema; Memory change Social History Tobacco Use Types Packs/Day Years Used Date Smoking Tobacco: Never Smokeless Tobacco: Never Alcohol Use Standard Drinks/Week Comments Not Currently 0 (1 standard drink = 0.6 oz pur e alcohol) on occasion AUDIT-C Answer Date Recorded Q1: How often do you have a drink containing alcohol? Never 08/28/2021 Q2: How many drinks containi ng alcohol do you have on a typical day when you are drinking? Patient does not drink Q3: How often do you have si x or more drinks on one occasion? Never 08/28/2021 Overall Financial Resource Strain (CARDIA) Answe r Date Recorded How hard is it for you to pa y for the very basics like food, housing, medical care, and heating? Not hard at all 10/01/2021 PHQ-2 Answer Date Recorded Retired PHQ-9: Brief Depression Severity Measure Score 0 04/29/2022 Hunger Vital Sign Answer Date Recorded Within the past 12 months, y ou worried that your food would run out before you got the money to buy more. Never true 10/02/19 22 Within the past 12 months, t he food you bought just didn't last and you didn't have money to get more. Never true 10/01/2021 PRAPARE - Transportation Answer Date Re corded In the past 12 months, has l ack of transportation kept you from medical appointments or from getting medications? No 09/09 In the past 12 months, has l ack of transportation kept you from meetings, work, or from getting things needed for daily living? No 10/01/2021 Housing Stability Vital Sign Answer Oswaldo e Recorded In the last 12 months, was t here a time when you were not able to pay the mortgage or rent on time? No 10/01/2021 In the last 12 months, how many places have you lived? 1 10/01/2021 In the last 12 months, was t here a time when you did not have a steady place to sleep or slept in a halfway (including now)? No 10/01/2021 PHQ-2 Answer Date Recorded Patient Health Questionnaire-2 Score 1 08/21/2024 Comments No Sex and Gender Information Value Date Recorded Sex Assigned at Not on file Legal Sex Female 1:07 PM EDT Gender Identity Not on file Sexual Orientation Not on file Occupation Industry Job Start Date Job End Date retired Not on file Not on file Not on file documented as of this encounter Last Filed Vital Signs Vital Sign Reading Time Taken Comments Blood Pressure 132/68 08/21/2024 2:35 PM EDT Pulse 106 08/21/2024 2:35 PM EDT Temperature - - Respiratory Rate 18 08/21/2024 2:35 PM EDT Oxygen Saturation 99% 08/21/2024 2:35 PM EDT Inhaled Oxygen Concentration - - Weight 105 kg (232 lb) 08/21/2024 2:35 PM EDT Height 160 cm (5' 2.99 ) 08/21/2024 2:35 PM EDT Body Mass Index 41.11 08/21/2024 2:35 PM EDT documented in this encounter Functional Status documented as of this encounter Patient Instructions * Attachments The following attachments cannot be sent through Care Everywhere. * ADVANCE CARE PLANNING AVS documented in this encounter Progress Notes * Earl Dumont MD - 08/21/2024 2:15 PM EDT Images from the original note were not included. Subjective The ABCs of the Annual Wellness Visit Medicare Wellness Visit Patito Garcia is a 79 y.o. patient who presents for a Medicare Wellness Visit. The following portions of the patient's history were reviewed and updated as appropriate: allergies, current medications, past family history, past medical history, past social history, past surgical history, and problem list. Compared to one year ago, the patient's physical health is worse. Compared to one year ago, the patient's mental health is the same. Recent Hospitalizations: She was admitted within the past 365 days [facility] and then to SNF for recovery. Current Medical Providers: Patient Care Team: Earl Dumont MD as PCP - General (Family Medicine) Outpatient Medications Prior to Visit Medication Sig Dispense Refill amiodarone (PACERONE) 200 MG tablet Take 2 tablets by mouth Every 12 (Twelve) Hours. albuterol (PROVENTIL) (2.5 MG/3ML) 0.083% nebulizer solution Take 2.5 mg by nebulization Every 4 (Four) Hours As Needed for Wheezing. 300 mL 12 albuterol sulfate HFA 108 (90 Base) MCG/ACT inhaler 1-2 puffs q 4-6 hours PRN 8 g 5 docusate sodium (Colace) 100 MG capsule Take 1 capsule by mouth 2 (Two) Times a Day. 60 capsule 5 DULoxetine (CYMBALTA) 60 MG capsule Take 1 capsule by mouth Daily. 90 capsule 1 famotidine (PEPCID) 40 MG tablet Take 1 tablet by mouth Daily. 30 tablet 1 Fluticasone-Salmeterol (ADVAIR/WIXELA) 250-50 MCG/ACT DISKUS Inhale 1 puff 2 (Two) Times a Day. 3 each 1 hydrOXYzine (ATARAX) 50 MG tablet TAKE 1/2 TO 1 TABLET BY MOUTH EVERY 6 HOURS NEEDED FOR [id number] tablet 1 ipratropium-albuterol (DUO-NEB) 0.5-2.5 mg/3 ml nebulizer 3 mL. nystatin (MYCOSTATIN) 100,000 unit/mL suspension Swish and swallow 5 mL 4 (Four) Times a Day. 250 mL 1 ondansetron ODT (ZOFRAN-ODT) [address] 1 tablet on the tongue Every 8 (Eight) Hours As Needed for Nausea or Vomiting. 30 tablet 2 traZODone (DESYREL) 150 MG tablet Take 1 tablet by mouth every night at bedtime. 90 tablet 0 alendronate (FOSAMAX) 70 MG tablet Take 1 tablet by mouth Every 7 (Seven) Days. 4 tablet 2 amLODIPine (NORVASC) 5 MG tablet Take 1 tablet by mouth Daily. 90 tablet 1 apixaban (ELIQUIS) 5 MG tablet tablet Take 1 tablet by mouth 2 (Two) Times a Day. 10 tablet 0 apixaban (ELIQUIS) 5 MG tablet tablet Take 1 tablet by mouth 2 (Two) Times a Day. 180 tablet 1 atenolol (TENORMIN) 25 MG tablet Take 1 tablet by mouth Daily. 90 tablet 1 atorvastatin (Lipitor) 40 MG tablet Take 1 tablet by mouth Daily. 90 tablet 1 busPIRone (BUSPAR) 30 MG tablet Take 1 tablet by mouth 2 (Two) Times a Day. 180 tablet 1 donepezil (ARICEPT) 10 MG tablet Take 1 tablet by mouth Daily. 90 tablet 1 Entresto 49-51 MG tablet Take 1 tablet by mouth 2 (Two) Times a Day. 180 tablet 1 furosemide (LASIX) 40 MG tablet Take 1 tablet by mouth Every Morning. 90 tablet 1 levothyroxine (SYNTHROID, LEVOTHROID) 125 MCG tablet Take 1 tablet by mouth Daily. 90 tablet 0 memantine (NAMENDA) 5 MG tablet Take 1 tablet by mouth 2 (Two) Times a Day. 60 tablet 3 No facility-administered medications prior to visit. No opioid medication identified on active medication list. I have reviewed chart for other potential high risk medication/s and harmful drug interactions in the elderly. 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 ACP discussion was held with the patient during this visit. Patient does not have an advance directive, information provided. Objective Vitals: 08/21/24 1435 BP: 132/68 Pulse: 106 Resp: 18 SpO2: 99% Weight: 105 kg (232 lb) Height: 160 cm (62.99 ) Estimated body mass index is 41.11 kg/m?? as calculated from the following: Height as of this encounter: 160 cm (62.99 ). Weight as of this encounter: 105 kg (232 lb). Does the patient have evidence of cognitive impairment? Yes Health Risk Assessment Smoking Status: Social History Tobacco Use Smoking Status Never Smokeless Tobacco Never Alcohol Consumption: Social History Substance and Sexual Activity Alcohol Use Not Currently Comment: on occasion Fall Risk Screen STEADI Fall Risk Assessment was completed, and patient is at HIGH risk for falls. Assessment completed on:08/21/2024 Depression Screening Little interest or pleasure in doing things? Not at all Feeling down, depressed, or hopeless? Several days PHQ-2 Total Score 1 Health Habits and Functional and Cognitive Screenin08/21/2024 2:00 PM Functional & Cognitive Status Do you have difficulty preparing food and eating? Yes Do you have difficulty bathing yourself, getting dressed or grooming yourself? Yes Do you have difficulty using the toilet? Yes Do you have difficulty moving around from place to place? Yes Do you have trouble with steps or getting out of a bed or a chair? Yes Current Diet Well Balanced Diet Dental Exam Not up to date Eye Exam Not up to date Exercise (times per week) 0 times per week Current Exercises Include No Regular Exercise Do you need help using the phone? No Are you deaf or do you have serious difficulty hearing? Yes Do you need help to go to places out of walking distance? Yes Do you need help shopping? Yes Do you need help preparing meals? Yes Do you need help with housework? Yes Do you need help with laundry? Yes Do you need help taking your medications? Yes Do you need help managing money? Yes Do you ever drive or ride in a car without wearing a seat belt? No Have you felt unusual fatigue (could be tiredness), stress, anger or loneliness in the last month? Yes If you need help, do you have trouble finding someone available to you? No Have you been bothered in the last four weeks by sexual problems? No Do you have difficulty concentrating, remembering or making decisions? Yes Age-appropriate Screening Schedule: Refer to the list below for future screening recommendations based on patient's age, sex and/or medical conditions. Orders for these recommended tests are listed in the plan section. The patient has been provided with a written plan. Health Maintenance List Health Maintenance Topic Date Due ZOSTER VACCINE (1 of 2) Never done TDAP/TD VACCINES (2 - Tdap) 12/17/2008 RSV Vaccine - Adults (1 - 1-dose 75+ series) Never done COVID-19 Vaccine ( season) 2023 ANNUAL WELLNESS VISIT 07/13/2024 INFLUENZA VACCINE 11/08/2024 LIPID PANEL 12/05/2024 Pneumococcal Vaccine 50+ Completed DXA SCAN Discontinued [facility] Preventative Services Quick Reference Risk Factors Identified During Encounter Chronic Pain: chronic, stablep ain. Will try voltaren gel for leg pain Fall Risk-High or Moderate: Discussed Fall Prevention in the home Inactivity/Sedentary: Patient was advised to exercise at least 150 minutes a week per CDC recommendations. Polypharmacy: Medication List reviewed The above risks/problems have been discussed with the patient. Pertinent information has been shared with the patient in the After Visit Summary. An After Visit Summary and PPPS were made available to the patient. Follow Up: Next Medicare Wellness visit to be scheduled in 1 year. Additional E&M Note during same encounter follows: Patient has additional, significant, and separately identifiable condition(s)/problem(s) that require work above and beyond the Medicare Wellness Visit Chief Complaint Medicare Wellness-subsequent (SMW /) Subjective HPI Patito is also being seen today for additional medical problem/s. She just got out of the hospital after being admited for CO2 retention and a fall She was there for a few days and then to SNF for 3 days Just got home this AM! Pattio Garcia is here for follow-up of hypertension of several years duration. She is not exercisingand is not adherent to a low-salt diet. Patient does not check her blood pressure. Cardiovascular risk factors: advanced age (older than 55 for men, 65 for women) and hypertension. She is compliant with meds. R leg pain is an issue Anterior vail No fall but has been hurting worse since recent PT session Still struggling to walk much Uses wheelchair most of the time Breathing stable, on oxygen Does not move much at all Review of Systems Constitutional: Negative. Respiratory: Positive for shortness of breath. Musculoskeletal: Positive for gait problem. Objective Vital Signs: BP 132/68 Pulse 106 Resp 18 Ht 160 cm (62.99 ) Wt 105 kg (232 lb) SpO2 99% BMI 41.11 kg/m?? Physical Exam Vitals and nursing note reviewed. Constitutional: General: She is not in acute distress. Appearance: Normal appearance. She is well-developed. Comments: Oxygen in place Cardiovascular: Rate and Rhythm: Normal rate and regular rhythm. Heart sounds: Normal heart sounds. Pulmonary: Effort: Pulmonary effort is normal. Breath sounds: Normal breath sounds. Musculoskeletal: Comments: wheelchair No TTP over anterior R vail, normal inspection Neurological: Mental Status: She is alert and oriented to person, place, and time. Psychiatric: Mood and Affect: Mood normal. Behavior: Behavior normal. Thought Content: Thought content normal. Judgment: Judgment normal. Assessment and Plan Diagnoses and all orders for this visit: 1. Medicare annual wellness visit, subsequent (Primary) 2. Right leg pain - Diclofenac Sodium (VOLTAREN) 1 % gel gel; Apply 4 g topically to the appropriate area as directed3 (Three) Times a Day. Dispense: 50 g; Refill: 1 3. Essential hypertension - amLODIPine (NORVASC) 5 MG tablet; Take 1 tablet by mouth Daily. Dispense: 90 tablet; Refill: 1 - atenolol (TENORMIN) 25 MG tablet; Take 1 tablet by mouth Daily. Dispense: 90 tablet; Refill: 1 4. Diastolic dysfunction with chronic heart failure - Entresto 49-51 MG tablet; Take 1 tablet by mouth 2 (Two) Times a Day. Dispense: 180 tablet; Refill: 1 5. Acquired hypothyroidism - levothyroxine (SYNTHROID, LEVOTHROID) 125 MCG tablet; Take 1 tablet by mouth Daily. Dispense: 90 tablet; Refill: 0 6. Age-related osteoporosis without current pathological fracture - alendronate (FOSAMAX) 70 MG tablet; Take 1 tablet by mouth Every 7 (Seven) Days. Dispense: 4 tablet; Refill: 2 7. Generalized anxiety disorder - busPIRone (BUSPAR) 30 MG tablet; Take 1 tablet by mouth 2 (Two) Times a Day. Dispense: 180 tablet; Refill: 1 8. Recurrent major depressive disorder, in full remission - busPIRone (BUSPAR) 30 MG tablet; Take 1 tablet by mouth 2 (Two) Times a Day. Dispense: 180 tablet; Refill: 1 9. History of pulmonary embolism - apixaban (ELIQUIS) 5 MG tablet tablet; Take 1 tablet by mouth 2 (Two) Times a Day. Dispense: 10 tablet; Refill: 0 10. Multiple subsegmental pulmonary emboli without acute cor pulmonale - apixaban (ELIQUIS) 5 MG tablet tablet; Take 1 tablet by mouth 2 (Two) Times a Day. Dispense: 10 tablet; Refill: 0 11. Hypercholesterolemia - atorvastatin (Lipitor) 40 MG tablet; Take 1 tablet by mouth Daily. Dispense: 90 tablet; Refill: 1 12. Lower extremity edema - furosemide (LASIX) 40 MG tablet; Take 1 tablet by mouth Every Morning. Dispense: 90 tablet; Refill: 1 13. Memory change - donepezil (ARICEPT) 10 MG tablet; Take 1 tablet by mouth Daily. Dispense: 90 tablet; Refill: 1 - memantine (NAMENDA) 5 MG tablet; Take 1 tablet by mouth 2 (Two) Times a Day. Dispense: 60 tablet;Refill: 3 Medicare wellness completed. Continue exercise as tolerated. Ok voltaren gel for leg pain, call back INB No [facility] BP stable, refilled all documented in this encounter Plan of Treatment Upcoming Encounters Date Type Department Care Team (Late st Contact Info) Description 02/19/2025 3:00 PM EST Office Visit [facility] [address] [facility] [place] [address] Earl Dumont MD [address] [place] [address] documented as of this encounter Visit Diagnoses Diagnosis Medicare annual wellness visit, subsequent- Primary Right leg pain Pain in soft tissues of limb Essential hypertension Unspecified essential hypertension Diastolic dysfunction with chronic heart failure Acquired hypothyroidism Unspecified hypothyroidism Age-related osteoporosis without current pathological fracture Generalized anxiety disorder Recurrent major depressive disorder, in full remission History of pulmonary embolism Personal history of venous thrombosis and embolism Multiple subsegmental pulmonary emboli without acute cor pulmonale Hypercholesterolemia Pure hypercholesterolemia Lower extremity edema Edema Memory change Memory loss documented in this encounter Additional Health Concerns Assessment Noted Time PHQ-2 Depression Total Score: 2 07/14/19 24 4:30 PM EDT documented as of this encounter Care Teams Web Press Operator Apprentice Relationship Specialty Start Date End Date Earl Dumont MD [address] [place] [address] PCP - General Family Medicine 01/23/20 documented as of this encounter
[2024-08-28] VITALS (7 sets, daily range): BP systolic 144–175; BP diastolic 52–66; PULSE 63–72; RESP 17–31; TEMP 36.7–36.9; O2SAT 93–98; BMI 46.0
--- NOTE | 2024-08-28 11:42 | CA_ITS ---
FINAL REPORT TECHNIQUE: Multiple transverse and longitudinal images were performed of right the femoral-popliteal deep venous system with augmentation and compression maneuvers. CLINICAL HISTORY: RT LEG PAIN FINDINGS: Right lower extremity duplex ultrasound demonstrates normal flow in the deep venous system. There is no abnormal echogenicity to suggest thrombus. There is normal compression and augmentation. IMPRESSION: No evidence of right DVT. Reviewed, Interpreted and Dictated by Bebo Ahmadi MD Transcribed by Allyssa Zaman Authenticated and [facility]
--- NOTE | 2024-08-28 11:43 | CT_ITS ---
FINAL REPORT TECHNIQUE: After the administration of intravenous contrast, axial images were obtained through the abdomen and pelvis by computed tomography. This study was performed with technique to keep radiation doses as low as reasonably achievable, (ALARA). Individualized dose reduction techniques using automated exposure control or adjustment of the MA and/or KV according to the patient's size were employed. CLINICAL HISTORY: constipation COMPARISON: 10/14/2023 FINDINGS: Abdomen: The liver is normal in size and attenuation. The spleen and gallbladder are unremarkable. The adrenals are normal. The pancreas is unremarkable. There are small, nonobstructing right renal stones, new from prior exam. The aorta is normal in caliber. There is no free fluid or adenopathy. There is a large hiatal hernia. Pelvis: The appendix is not identified. There is mild fecal impaction. There is severe sigmoid diverticulosis without evidence of diverticulitis. Uterus is normal for patient's age. The urinary bladder is unremarkable. There is no free fluid or adenopathy. IMPRESSION: No acute intra-abdominal process. Reviewed, Interpreted and Dictated by Bebo Ahmadi MD Transcribed by Allyssa Zaman Authenticated and [facility]
--- NOTE | 2024-08-28 11:43 | CT_ITS ---
FINAL REPORT TECHNIQUE: Postcontrast axial images of the chest were performed in a CTA protocol. This study was performed with techniques to keep radiation doses as low as reasonably achievable, (ALARA). Individualized dose reduction technique using automated exposure control or adjustment of mA and/or kV according to the patient's size were employed. CLINICAL HISTORY: shortness of breath COMPARISON: 02/13/2024 FINDINGS: There is enlargement of the pulmonary arteries suggestive of pulmonary arterial hypertension. The heart is normal in size. No adenopathy is identified. No pleural or pericardial effusion is identified. The thoracic aorta is normal in caliber with no focal aneurysm or dissection identified. There is no filling defect to suggest pulmonary embolism. Compressive atelectasis is seen of the left lower lobe. Mosaic perfusion pattern is present which may be seen with air trapping, similar to prior exam. There is a large hiatal hernia resulting in compressive atelectasis of the left lower lobe. IMPRESSION: No evidence for PE on this exam. Chronic changes as above, similar to prior exam. Reviewed, Interpreted and Dictated by Bebo Ahmadi MD Transcribed by Allyssa Zaman Authenticated and [facility]
--- OUTSIDE RECORDS SUMMARY | 2024-08-28 11:47 | XMS_ITS | Encounter Summary ---
[facility] Address [address] [place] [address] Care Team Providers Care Dean Name Role Phone Earl Dumont MD Primary Care Provider [phone] Reason for Visit * Reason Onset Date Comments OT 07/07/2024 Encounter Details Date Type Department Care Team (Late st Contact Info) Description 07/07/2024 Telephone [facility] [address] [facility] [place] [address] Earl Dumont MD [address] [facility] [place] [address] OT Social History Tobacco Use Types Packs/Day Years [...] place to sleep or slept in a assisted (including now)? No 10/01/2021 PHQ-2 Answer Date Recorded Patient Health Questionnaire-2 Score 0 02/10/2024 Comments No Sex and Gender Information Value Date Recorded Sex Assigned at Not on file Legal Sex Female 1:07 PM EDT Gender Identity Not on file Sexual Orientation Not on file Occupation Industry Job Start Date Job End Date retired Not on file Not on file Not on file documented as of this encounter Miscellaneous Notes * Telephone Encounter - Yusra Zimmerman RegSched Rep - 07/07/2024 2:20 PM EDT Caller: ARABELLA Relationship: LESLEY Best call back number: [phone] What was the call regarding: PATIENT MISSED HER VISIT, WOULD NOT ANSWER CALL. WILL RESUME CARE NEXTWEEK. documented in this encounter Plan of Treatment Upcoming Encounters Date Type Department Care Team (Late st Contact Info) Description 02/19/2025 3:00 PM EST Office Visit [facility] [address] [place] [address] Earl Dumont MD [address] [facility] [place] [address] documented as of this encounter Visit Diagnoses Not on filedocumented in this encounter Additional Health Concerns Assessment Noted Time PHQ-2 Depression Total Score: 2 07/14/19 24 4:30 PM EDT documented as of this encounter Care Teams Dean Relationship Specialty Start Date End Date Earl Dumont MD [address] [place] [address] PCP - General Family Medicine 01/23/20 documented as of this encounter
--- OUTSIDE RECORDS SUMMARY | 2024-08-28 11:47 | XMS_ITS | Encounter Summary ---
Author Organization [facility] Address [address] [place] [address] Care Team Providers Care Box Office Agent Name Role Phone Earl Dumont MD Primary Care Provider [phone] Encounter Details Date Type Department Care Team (Latest Contact Info) Description 08/21/2024 Travel Social History Tobacco Use Types Packs/Day Years [...] place to sleep or slept in a custodial (including now)? No 10/01/2021 PHQ-2 Answer Date [...] on file documented as of this encounter Functional Status documented as of this encounter Plan of Treatment Upcoming Encounters Date Type Department Care Team (Late st Contact Info) Description 02/19/2025 3:00 PM EST Office Visit [facility] FAMILY MEDICINE [address] [place] [address] Earl Dumont MD [address] [place] [address] documented as of this encounter Visit Diagnoses Not on filedocumented in this encounter Additional Health Concerns Assessment Noted Time PHQ-2 Depression Total Score: 2 07/14/19 24 4:30 PM EDT documented as of this encounter Care Teams Box Office Agent Relationship Specialty Start Date End Date Earl Dumont MD [address] [place] [address] PCP - General Family Medicine 01/23/20 documented as of this encounter
--- OUTSIDE RECORDS SUMMARY | 2024-08-28 11:47 | XMS_ITS | Encounter Summary ---
[facility] Address [address] [place] [address] Care Team Providers Care Combat Engineer Name Role Phone Earl Dumont MD Primary Care Provider [phone] Reason for Visit * Reason Onset Date Comments ORDER REQUEST 07/05/2024 Encounter Details Date Type Department Care Team (Late st Contact Info) Description 07/05/2024 Telephone [facility] [address] [facility] [place] [place] [address] Earl Dumont MD [address] [facility] [place] [place] [address] ORDER REQUEST Social History Tobacco Use Types Packs/Day Years [...] place to sleep or slept in a chcf (including now)? No 10/01/2021 PHQ-2 Answer Date [...] encounter Miscellaneous Notes * Telephone Encounter - Alison Carlisle LPN - 07/10/2024 8:44 AM EDT Left verbal on vm * Telephone Encounter - Earl Dumont MD - 07/07/2024 12:55 PM EDT Yes, that would be excellent! * Telephone Encounter - Sharmaine Horne RegSched Rep - 07/05/2024 2:53 PM EDT Caller: DORY GUTIÉRREZ [facility] Relationship: Home Health Best call back number: [phone] What orders are you requesting (i.e. lab or imaging): [facility] Additional notes: [facility] WOULD LIKE TO KNOW IF THEY CAN GET THE OKAY FOR AN ADDITIONAL NURSINGVISIT NEXT WEEK TO COMPLETE HER RECERTIFICATION. PLEASE CALL TO DISCUSS documented in this encounter Plan of Treatment Upcoming Encounters Date Type Department Care Team (Late st Contact Info) Description 02/19/2025 3:00 PM EST Office Visit [facility] MEDICINE [address] [place] [address] Earl Dumont MD [address] [place] [id number] documented as of this encounter Visit Diagnoses Not on filedocumented in this encounter Additional Health Concerns Assessment Noted Time PHQ-2 Depression Total Score: 2 07/14/19 24 4:30 PM EDT documented as of this encounter Care Teams Combat Engineer Relationship Specialty Start Date End Date Earl Dumont MD [address] [place] [address] PCP - General Family Medicine 01/23/20 documented as of this encounter
--- OUTSIDE RECORDS SUMMARY | 2024-08-28 11:47 | XMS_ITS | Encounter Summary ---
[facility] Address [address] [place] [address] Care Team Providers Care Hat Marker Name Role Phone Earl Dumont MD Primary Care Provider [phone] Reason for Visit * Reason Onset Date Comments Advice Only 07/28/2024 Encounter Details Date Type Department Care Team (Late st Contact Info) Description 07/28/2024 Telephone [facility] MEDICINE [address] [facility] [place] [address] Earl Dumont MD [address] [facility] [place] [address] Advice Only Social History Tobacco Use Types Packs/Day Years [...] place to sleep or slept in a senior living (including now)? No 10/01/2021 PHQ-2 Answer Date [...] encounter Miscellaneous Notes * Telephone Encounter - Florencia Gordon RegSched Rep - 07/28/2024 3:48 PM EDT PATIENT OT HAS BEEN POSTPONED UNTIL NEXT WEEK documented in this encounter Plan of Treatment Upcoming Encounters Date Type Department Care Team (Late st Contact Info) Description 02/19/2025 3:00 PM EST Office Visit [facility] MEDICINE [address] [place] [address] Earl Dumont MD [address] [place] [address] documented as of this encounter Visit Diagnoses Not on filedocumented in this encounter Additional Health Concerns Assessment Noted Time PHQ-2 Depression Total Score: 2 07/14/19 24 4:30 PM EDT documented as of this encounter Care Teams Hat Marker Relationship Specialty Start Date End Date Earl Dumont MD [address] [place] [address] PCP - General Family Medicine 01/23/20 documented as of this encounter
--- OUTSIDE RECORDS SUMMARY | 2024-08-28 11:47 | XMS_ITS | Encounter Summary ---
[facility] Address [address] [place] [address] Care Team Providers Care Vice Chairman Name Role Phone Earl Dumont MD Primary Care Provider [phone] Reason for Visit * Reason Comments Med Refill Encounter Details Date Type Department Care Team (Late st Contact Info) Description 05/08/2022 Refill [facility] [address] [facility] [address] Earl Dumont MD [address] [facility] [place] [address] Generalized anxiety disorder Social History Tobacco Use Types Packs/Day Years Used Date Smoking Tobacco: Never Smokeless Tobacco: Never Alcohol Use Standard Drinks/Week Comments Yes 0 (1 standard drink = 0.6 oz [...] place to sleep or slept in a skilled nursing (including now)? No 10/01/2021 PHQ-2 Answer Date Recorded Retired PHQ-9: Brief Depression Severity Measure Score 0 04/29/2022 Comments No Sex and Gender Information Value Date Recorded Sex Assigned at Not on file Legal Sex Female 1:07 PM EDT Gender Identity Not on file Sexual Orientation Not on file Occupation Industry Job Start Date Job End Date retired Not on file Not on file Not on file documented as of this encounter Plan of Treatment Upcoming Encounters Date Type Department Care Team (Late st Contact Info) Description 02/19/2025 3:00 PM EST Office Visit [facility] [address] [place] [address] Earl Dumont MD [address] [place] [address] documented as of this encounter Visit Diagnoses Diagnosis Generalized anxiety disorder documented in this encounter Care Teams Vice Chairman Relationship Specialty Start Date End Date Earl Dumont MD [address] [place] [address] PCP - General Family Medicine 01/23/20 documented as of this encounter
--- OUTSIDE RECORDS SUMMARY | 2024-08-28 11:47 | XMS_ITS | Encounter Summary ---
[facility] Address [address] [place] [address] Care Team Providers Care Cattle Sticker Name Role Phone Earl Dumont MD Primary Care Provider [phone] Reason for Visit * Reason Onset Date Comments Med Refill 08/22/2024 Encounter Details Date Type Department Care Team (Late st Contact Info) Description 08/22/2024 Refill [facility] MEDICINE [address] [place] [address] Earl Dumont MD [address] [place] [address] Right leg pain Social History Tobacco Use Types Packs/Day Years [...] place to sleep or slept in a fdc (including now)? No 10/01/2021 PHQ-2 Answer Date [...] Telephone Encounter - Alison Carlisle LPN - 08/22/2024 3:52 PM EDT resent * Telephone Encounter - Joshua Hill - 08/22/2024 3:16 PM EDT Caller: Patito Garcia Relationship: Self Best call back number: [phone] Requested Prescriptions: Requested Prescriptions Pending Prescriptions Disp Refills Diclofenac Sodium (VOLTAREN) 1 % gel gel 50 g 1 Sig: Apply 4 g topically to the appropriate area as directed 3 (Three) Times a Day. Pharmacy where request should be sent: [id number] - [place], [place] - [address] [address] [address] [facility] - [phone] - [phone] FX Last office visit with prescribing clinician: 08/21/2024 Last telemedicine visit with prescribing clinician: Visit date not found Next office visit with prescribing clinician: 02/19/2025 Additional details provided by patient: PATIENT HAS CALLED REQUESTING A NEW PRESCRIPTION ON ABOVE MEDICATION TO BE SENT TO [facility] IN [place]. [facility] DID NOT HAVE MEDICATION IN STOCK. Does the patient have less than a 3 day supply: [x] Yes [] No Would you like a call back once the refill request has been completed: [] Yes [x] No If the office needs to give you a call back, can they leave a voicemail: [] Yes [x] No Joshua Hill 08/22/24 15:17 EDT DELETE AFTER READING TO PATIENT: ???Thank you for sharing this information with me. I will send a message to the clinical team. Please allow 48 hours for the clinical staff to follow up on this request.?? documented in this encounter Plan of Treatment Upcoming Encounters Date Type Department Care Team (Late st Contact Info) Description 02/19/2025 3:00 PM EST Office Visit [facility] MEDICINE [address] [place] [address] Earl Dumont MD [address] [place] [address] documented as of this encounter Visit Diagnoses Diagnosis Right leg pain Pain in soft tissues of limb documented in this encounter Additional Health Concerns Assessment Noted Time PHQ-2 Depression Total Score: 2 07/14/19 24 4:30 PM EDT documented as of this encounter Care Teams Cattle Sticker Relationship Specialty Start Date End Date Earl Dumont MD [address] [place] [address] PCP - General Family Medicine 01/23/20 documented as of this encounter
--- OUTSIDE RECORDS SUMMARY | 2024-08-28 11:47 | XMS_ITS | Encounter Summary ---
[facility] Address [address] [place] [address] Care Team Providers Care Supervisor Customer Complaint Service Name Role Phone Earl Dumont MD Primary Care Provider [phone] Reason for Visit * Reason Onset Date Comments New Med Request 07/05/2024 Encounter Details Date Type Department Care Team (Late st Contact Info) Description 07/05/2024 Telephone [facility] [address] [facility] [address] Earl Dumont MD [address] [facility] [place] [address] New Med Request Social History Tobacco Use Types Packs/Day Years [...] encounter Miscellaneous Notes * Telephone Encounter - Yolanda Rand MA - 07/06/2024 2:44 PM EDT Attached message to a separate encounter informing Dr Dumont of request for medication to help withacid reflux/nausea. See other encounter. * Telephone Encounter - Sharmaine Horne RegSched Rep - 07/05/2024 2:49 PM EDT Caller: [facility] Relationship: Home Health Best call back number: [phone] What medication are you requesting: SOMETHING TO HELP WITH CONTINUED NAUSEA, GERD SYMPTOMS What are your current symptoms: NAUSEA How long have you been experiencing symptoms: GREATER THEN 10 DAYS Have you had these symptoms before: [x] Yes [] No Have you been treated for these symptoms before: [x] Yes [] No If a prescription is needed, what is your preferred pharmacy and phone number: [id number] - [place], [place] - [address] [address] [address] AT [facility] [address] [facility] - [phone] [facility] [phone] FX Additional notes: CONTINUING WITH HER NAUSEA, PATIENT STATES PREVIOUS DIAGNOSIS OF GERD BUT HOME HEALTH DID NOT HAVE RECORD. THE HOME HEALTH NURSE WAS UNSURE IF THE PROVIDER WOULD LIKE TO SEND IN A PRESCRIPTION TO HELP WITH HER SYMTOMS. PLEASE CALL WITH ADDITONAL QUESTIONS IF NEEDED. documented in this encounter Plan of Treatment Upcoming Encounters Date Type Department Care Team (Late st Contact Info) Description 02/19/2025 3:00 PM EST Office Visit [facility] [address] [place] [phone] Earl Dumont MD [address] [place] [address] documented as of this encounter Visit Diagnoses Not on filedocumented in this encounter Additional Health Concerns Assessment Noted Time PHQ-2 Depression Total Score: 2 07/14/19 24 4:30 PM EDT documented as of this encounter Care Teams Supervisor Customer Complaint Service Relationship Specialty Start Date End Date Earl Dumont MD [address] [place] [address] PCP - General Family Medicine 01/23/20 documented as of this encounter
--- OUTSIDE RECORDS SUMMARY | 2024-08-28 11:47 | XMS_ITS | Encounter Summary ---
[facility] Address [address] [place] [address] Care Team Providers Care Research Recruiter Name Role Phone Earl Dumont MD Primary Care Provider [phone] Encounter Details Date Type Department Care Team (Late st Contact Info) Description 08/28/2024 Telephone [facility] MEDIC[facility] [address] [facility] [place] [address] Earl Dumont MD [address] [facility] [place] [address] Social History Tobacco Use Types Packs/Day Years [...] money to buy more. Never true 10/02/19 Within the past 12 months, t he [...] place to sleep or slept in a prison (including now)? No 10/01/2021 PHQ-2 Answer Date [...] Visit [facility] [address] [place] [address] Earl Dumont MD [address] [place] [address] documented as of this encounter Visit Diagnoses Not on filedocumented in this encounter Additional Health Concerns Assessment Noted Time PHQ-2 Depression Total Score: 2 07/14/19 24 4:30 PM EDT documented as of this encounter Care Teams Research Recruiter Relationship Specialty Start Date End Date Earl Dumont MD [address] [place] [address] PCP - General Family Medicine 01/23/20 documented as of this encounter
--- OUTSIDE RECORDS SUMMARY | 2024-08-28 11:47 | XMS_ITS | Encounter Summary ---
[facility] Address [address] [place] [address] Care Team Providers Care Tar Heel Name Role Phone Earl Dumont MD Primary Care Provider [phone] Reason for Visit * Reason Onset Date Comments Med Refill 07/17/2024 Encounter Details Date Type Department Care Team (Late st Contact Info) Description 07/17/2024 Refill [facility] FAM[facility] MEDICINE [address] [place] [address] Earl Dumont MD [address] [place] [address] Generalized anxiety disorder Social History [...] place to sleep or slept in a usp (including now)? No 10/01/2021 PHQ-2 Answer Date [...] encounter Miscellaneous Notes * Telephone Encounter - Rebeca Mckeon RegSched Rep - 07/17/2024 1:25 PM EDT Caller: Patito Garcia Relationship: Self Best call back number: [phone] Requested Prescriptions: Requested Prescriptions Pending Prescriptions Disp Refills hydrOXYzine (ATARAX) 50 MG tablet 20 tablet 1 Sig: Take 0.5-1 tablets by mouth Every 6 (Six) Hours As Needed for Anxiety. Pharmacy where request should be sent: [id number] - [facility] [place] - [address] [address] [address] & [facility] [phone] [facility] [phone] FX Last office visit with prescribing clinician: 06/26/2024 Last telemedicine visit with prescribing clinician: Visit date not found Next office visit with prescribing clinician: 08/21/2024 Additional details provided by patient: OUT OF MEDICATION Does the patient have less than a 3 day supply: [x] Yes [] No Would you like a call back once the refill request has been completed: [] Yes [] No If the office needs to give you a call back, can they leave a voicemail: [] Yes [] No Farhad Harkins 07/17/24 13:26 EDT documented in this encounter Plan of Treatment Upcoming Encounters Date Type Department Care Team (Late st Contact Info) Description 02/19/2025 3:00 PM EST Office Visit [facility] MEDICINE [address] [facility] [place] [phone] Earl Dumont MD [address] [facility] [place] [address] documented as of this encounter Visit Diagnoses Diagnosis Generalized anxiety disorder documented in this encounter Additional Health Concerns Assessment Noted Time PHQ-2 Depression Total Score: 2 07/14/19 24 4:30 PM EDT documented as of this encounter Care Teams Tar Heel Relationship Specialty Start Date End Date Earl Dumont MD [address] [place] [address] PCP - General Family Medicine 01/23/20 documented as of this encounter
--- OUTSIDE RECORDS SUMMARY | 2024-08-28 11:47 | XMS_ITS | Encounter Summary ---
[facility] Address [address] [place] [address] Care Team Providers Care Veneer Stacker Name Role Phone Earl Dumont MD Primary Care Provider [phone] Reason for Visit * Reason Onset Date Comments CALLBACK 08/25/2024 Encounter Details Date Type Department Care Team (Late st Contact Info) Description 08/25/2024 Telephone [facility] MEDICINE [address] [facility] [place] [address] Earl Dumont MD [address] [facility] [place] [address] CALLBACK Social History Tobacco Use Types Packs/Day Years [...] encounter Miscellaneous Notes * Telephone Encounter - Rylan Corona RegSched Rep - 08/25/2024 9:51 AM EDT Caller: Patito Garcia Relationship: Self Best call back number: [phone] What was the call regarding: PATIENT STATES SHE IS STILL EXPERIENCING LEG PAIN, WEAKNESS, AND SHAKING. SHE WOULD LIKE A CALL BACK TO DISCUSS THIS AND SEE WHAT HER NEXT STEPS SHOULD BE. documented in this encounter Plan of Treatment Upcoming Encounters Date Type Department Care Team (Late st Contact Info) Description 02/19/2025 3:00 PM EST Office Visit [facility] MEDICINE [address] [place] [phone] Earl Dumont MD [address] [place] [address] documented as of this encounter Visit Diagnoses Not on filedocumented in this encounter Additional Health Concerns Assessment Noted Time PHQ-2 Depression Total Score: 2 07/14/19 24 4:30 PM EDT documented as of this encounter Care Teams Veneer Stacker Relationship Specialty Start Date End Date Earl Dumont MD [address] [place] [address] PCP - General Family Medicine 01/23/20 documented as of this encounter
--- OUTSIDE RECORDS SUMMARY | 2024-08-28 11:47 | XMS_ITS | Encounter Summary ---
Author [facility] [address] [place] [address] Care Team Providers Care Milk Receiver Tank Truck Name Role Phone Earl Dumont MD Primary Care Provider [phone] Reason for Visit * Reason Comments Med Refill Encounter Details Date Type Department Care Team (Late st Contact Info) Description 07/17/2024 Refill [facility] MEDICINE [address] [facility] [place] [address] Earl Dumont MD [address] [facility] [place] [address] Generalized anxiety disorder Social History [...] place to sleep or slept in a fci (including now)? No 10/01/2021 PHQ-2 Answer Date [...] Description 02/19/2025 3:00 PM EST Office Visit [facility] MEDICINE [address] [place] [address] Earl Dumont MD [address] [place] [address] documented as of this encounter Visit Diagnoses Diagnosis Generalized anxiety disorder documented in this encounter Additional Health Concerns Assessment Noted Time PHQ-2 Depression Total Score: 2 07/14/19 24 4:30 PM EDT documented as of this encounter Care Teams Milk Receiver Tank Truck Relationship Specialty Start Date End Date Earl Dumont MD [address] [place] [address] PCP - General Family Medicine 01/23/20 documented as of this encounter
--- OUTSIDE RECORDS SUMMARY | 2024-08-28 11:47 | XMS_ITS | Encounter Summary ---
[facility] Organization [facility] Address [address] [place] [address] Care Team Providers Care Gas Engine Mechanic Name Role Phone Earl Dumont MD Primary Care Provider Reason for Visit * Reason Onset Date Comments Advice Only 07/06/2024 Encounter Details Date Type Department Care Team (Late st Contact Info) Description 07/06/2024 Telephone [facility] [address] [facility] [place] [address] Earl Dumont MD [address] [facility] [place] [address] Advice Only Social History Tobacco [...] place to sleep or slept in a longterm (including now)? No 10/01/2021 PHQ-2 Answer Date [...] encounter Miscellaneous Notes * Telephone Encounter - Earl Dumont MD - 07/17/2024 1:54 PM EDT I do not think that telehealth would be helpful in evaluating Mrs. Garcia as we cannnot check BP, oxygen, heart rate nor complete physical exam with telehealth * Telephone Encounter - Cyndie Chua - 07/06/2024 1:00 PM EDT JT with [facility] called stating that Mrs. Garcia is having shortness of breath whileat rest and exertion. He noticed that she is getting a lot of congestion in her chest. I did advisethat an appt would more than likely be needed however he stated that it is very stressful for her to get out of the house and wanted to know if she could possibly do a telehealth visit by chance. documented in this encounter Plan of Treatment Upcoming Encounters Date Type Department Care Team (Late st Contact Info) Description 02/19/2025 3:00 PM EST Office Visit [facility] [address] [place] [address] Earl Dumont MD [address] [place] [address] documented as of this encounter Visit Diagnoses Not on filedocumented in this encounter Additional Health Concerns Assessment Noted Time PHQ-2 Depression Total Score: 2 07/14/19 24 4:30 PM EDT documented as of this encounter Care Teams Gas Engine Mechanic Relationship Specialty Start Date End Date Earl Dumont MD [address] [place] [address] PCP - General Family Medicine 01/23/20 documented as of this encounter
--- OUTSIDE RECORDS SUMMARY | 2024-08-28 11:47 | XMS_ITS | Encounter Summary ---
[facility] Address [address] [place] [address] Care Team Providers Care Emergency Planning And Response Manager Name Role Phone Earl Dumont MD Primary Care Provider [phone] Reason for Visit * Reason Onset Date Comments Advice Only 08/04/2024 Encounter Details Date Type Department Care Team (Late st Contact Info) Description 08/04/2024 Telephone [facility] [address] [facility] [place] [address] Earl Dumont MD [address] [facility] [place] [address] Advice Only Social History Tobacco [...] encounter Miscellaneous Notes * Telephone Encounter - Sadaf Godinez MA - 08/07/2024 11:12 AM EDT Pt does have wheelchair, and uses it when going out places. Uses walker. Home health already comes to their house. PT is hosp currently for a fall that she had at home today * Telephone Encounter - Marissa Castillo RegSched Rep - 08/04/2024 9:27 AM EDT Caller: SHAKILA Relationship: Grandchild Best call back number: [phone] What is the best time to reach you: ANYTIME Who are you requesting to speak with (clinical staff, provider, specific staff member): NURSE What was the call regarding: THE CALLER STATES THAT THE PATIENTS LEGS ARE VERY WEEK SHE IS AFRAID OF FALLING SHE NEEDS HELP TO GET FROM THE BEDROOM TO THE BATHROOM THE PATIENTS HANDS ARE ALSO SHAKINGTHE CALLER WOULD LIKE TO GET A NURSE TO CALL THEM TO TELL THEM WHAT TO DO documented in this encounter Plan of Treatment Upcoming Encounters Date Type Department Care Team (Late st Contact Info) Description 02/19/2025 3:00 PM EST Office Visit [facility] [address] [place] [id number] Earl Dumont MD [address] [facility] [place] [address] documented as of this encounter Visit Diagnoses Not on filedocumented in this encounter Additional Health Concerns Assessment Noted Time PHQ-2 Depression Total Score: 2 07/14/19 24 4:30 PM EDT documented as of this encounter Care Teams Emergency Planning And Response Manager Relationship Specialty Start Date End Date Earl Dumont MD [address] [place] [address] PCP - General Family Medicine 01/23/20 documented as of this encounter
--- OUTSIDE RECORDS SUMMARY | 2024-08-28 11:48 | XMS_ITS | Clinical Summary ---
Author Organization [facility] Address [address] [place] [address] Care Team Providers Care Tester Compressed Gases Name Role Phone Earl Dumont MD Primary Care Provider [phone] Allergies Active Allergy Reactions Criticality Noted Date Comments Sulfamethoxazole Nausea Only Low 10/14/2023 Trimethoprim Nausea Only Low 10/14/2023 Medications ondansetron ODT (ZOFRAN-ODT) 8 MG disintegrating tabletIndications :Nausea and vomiting, unspecified vomiting type Place 1 tablet on the tongue Every 8 (Eight) Hours As Needed for Nausea or Vomiting. 30 tablet 2 024 Active ipratropium-albut zenaida (DUO-NEB) 0.5-2.5 mg/3 ml nebulizer 3 mL. 024 Active albuterol (PROVENTIL) (2.5 MG/3ML) 0.083% nebulizer solutionIndicatio ns:Panlobular emphysema,COPD with exacerbation Take 2.5 mg by nebulization Every 4 (Four) Hours As Needed for Wheezing. 300 mL 12 024 Active nystatin (MYCOSTATIN) 100,000 unit/mL suspension Swish and swallow 5 mL 4 (Four) Times a Day. 250 mL 1 025 Active famotidine (PEPCID) 40 MG tabletIndications :Gastroesophageal reflux disease, unspecified whether esophagitis present Take 1 tablet by mouth Daily. 30 tablet 1 025 Active albuterol sulfate HFA 108 (90 Base) MCG/ACT inhalerIndication s:COPD with exacerbation,Shor tness of breath,Panlobular emphysema 1-2 puffs q 4-6 hours PRN 8 g 5 025 Active Fluticasone-Salme terol (ADVAIR/WIXELA) 250-50 MCG/ACT DISKUSIndications :Panlobular emphysema Inhale 1 puff 2 (Two) Times a Day. 3 each 1 025 Active traZODone (DESYREL) 150 MG tabletIndications :Primary insomnia Take 1 tablet by mouth every night at bedtime. 90 tablet 025 Active DULoxetine (CYMBALTA) 60 MG capsuleIndication s:Recurrent major depressive disorder, in full remission Take 1 capsule by mouth Daily. 90 capsule 1 025 Active docusate sodium (Colace) 100 MG capsuleIndication s:Chronic idiopathic constipation Take 1 capsule by mouth 2 (Two) Times a Day. 60 capsule 5 025 Active hydrOXYzine (ATARAX) 50 MG tabletIndications :Generalized anxiety disorder TAKE 1/2 TO 1 TABLET BY MOUTH EVERY 6 HOURS NEEDED FOR ANXIETY 20 tablet 1 025 Active amiodarone (PACERONE) 200 MG tablet Take 2 tablets by mouth Every 12 (Twelve) Hours. 025 Active amLODIPine (NORVASC) 5 MG tabletIndications :Essential hypertension Take 1 tablet by mouth Daily. 90 tablet 1 025 Active Entresto 49-51 MG tabletIndications :Diastolic dysfunction with chronic heart failure Take 1 tablet by mouth 2 (Two) Times a Day. 180 tablet 1 025 Active atenolol (TENORMIN) 25 MG tabletIndications :Essential hypertension Take 1 tablet by mouth Daily. 90 tablet 1 025 Active levothyroxine (SYNTHROID, LEVOTHROID) 125 MCG tabletIndications :Acquired hypothyroidism Take 1 tablet by mouth Daily. 90 tablet 025 Active alendronate (FOSAMAX) 70 MG tabletIndications :Age-related osteoporosis without current pathological fracture Take 1 tablet by mouth Every 7 (Seven) Days. 4 tablet 2 025 Active busPIRone (BUSPAR) 30 MG tabletIndications :Generalized anxiety disorder,Recurren t major depressive disorder, in full remission Take 1 tablet by mouth 2 (Two) Times a Day. 180 tablet 1 025 Active apixaban (ELIQUIS) 5 MG tablet tabletIndications :History of pulmonary embolism,Multiple subsegmental pulmonary emboli without acute cor pulmonale Take 1 tablet by mouth 2 (Two) Times a Day. 10 tablet 025 Active atorvastatin (Lipitor) 40 MG tabletIndications :Hypercholesterol emia Take 1 tablet by mouth Daily. 90 tablet 1 025 Active furosemide (LASIX) 40 MG tabletIndications :Lower extremity edema Take 1 tablet by mouth Every Morning. 90 tablet 1 025 Active donepezil (ARICEPT) 10 MG tabletIndications :Memory change Take 1 tablet by mouth Daily. 90 tablet 1 025 Active memantine (NAMENDA) 5 MG tabletIndications :Memory change Take 1 tablet by mouth 2 (Two) Times a Day. 60 tablet 3 025 Active Diclofenac Sodium (VOLTAREN) 1 % gel gelIndications:Ri ght leg pain Apply 4 g topically to the appropriate area as directed 3 (Three) Times a Day. 50 g 1 025 Active apixaban (ELIQUIS) 5 MG tablet tabletIndications :History of pulmonary embolism,Multiple subsegmental pulmonary emboli without acute cor pulmonale Take 1 tablet by mouth 2 (Two) Times a Day. 10 tablet 025 2024 Discontinued(R eorder) levothyroxine (SYNTHROID, LEVOTHROID) 125 MCG tabletIndications :Acquired hypothyroidism Take 1 tablet by mouth Daily. 90 tablet 025 2024 Discontinued(R eorder) amLODIPine (NORVASC) 5 MG tabletIndications :Essential hypertension Take 1 tablet by mouth Daily. 90 tablet 1 025 2024 Discontinued(R eorder) atenolol (TENORMIN) 25 MG tabletIndications :Essential hypertension Take 1 tablet by mouth Daily. 90 tablet 1 025 2024 Discontinued(R eorder) atorvastatin (Lipitor) 40 MG tabletIndications :Hypercholesterol emia Take 1 tablet by mouth Daily. 90 tablet 1 025 07/14/ 2025 Discontinued(R eorder) donepezil (ARICEPT) 10 MG tabletIndications :Memory change Take 1 tablet by mouth Daily. 90 tablet 1 025 2024 Discontinued(R eorder) furosemide (LASIX) 40 MG tabletIndications :Lower extremity edema Take 1 tablet by mouth Every Morning. 90 tablet 1 025 2024 Discontinued(R eorder) alendronate (FOSAMAX) 70 MG tabletIndications :Age-related osteoporosis without current pathological fracture Take 1 tablet by mouth Every 7 (Seven) Days. 4 tablet 2 2024 Discontinued(R eorder) busPIRone (BUSPAR) 30 MG tabletIndications :Generalized anxiety disorder,Recurren t major depressive disorder, in full remission Take 1 tablet by mouth 2 (Two) Times a Day. 180 tablet 1 2024 Discontinued(R eorder) apixaban (ELIQUIS) 5 MG tablet tabletIndications :Multiple subsegmental pulmonary emboli without acute cor pulmonale Take 1 tablet by mouth 2 (Two) Times a Day. 180 tablet 1 2024 Discontinued memantine (NAMENDA) 5 MG tabletIndications :Memory change Take 1 tablet by mouth 2 (Two) Times a Day. 60 tablet 3 2024 Discontinued(R eorder) Entresto 49-51 MG tabletIndications :Diastolic dysfunction with chronic heart failure Take 1 tablet by mouth 2 (Two) Times a Day. 180 tablet 1 2024 Discontinued(R eorder) Diclofenac Sodium (VOLTAREN) 1 % gel gelIndications:Ri ght leg pain Apply 4 g topically to the appropriate area as directed 3 (Three) Times a Day. 50 g 1 025 2024 Discontinued(R eorder) Active Problems Problem Noted Date Diagnosed Date (HFpEF) heart failure with preserved ejection fr action 03/07/2024 AMS (altered mental status) 03/07/2024 Angina pectoris 03/07/2024 CAD (coronary artery disease) 03/07/2024 Chronic obstructive pulmonar y disease with (acute) lower respiratory infection 02/12/2024 Oxygen dependent 10/04/2023 Nodule of right lung 10/02/2022 Diastolic dysfunction with chronic heart failure 04/29/2022 Arthralgia of both knees 09/12/2021 Status post total left knee replacement 08/29/19 Panlobular emphysema 04/24/2020 Memory change 02/23/2020 Generalized anxiety disorder 01/03/2020 Essential hypertension 08/22/2019 Hypercholesterolemia 08/22/2019 Acquired hypothyroidism 08/22/2019 Recurrent major depressive disorder, in full rem ission 08/22/2019 Primary insomnia 08/22/2019 GERD (gastroesophageal reflux disease) 0 Age-related osteoporosis wit hout current pathological fracture 08/22/2019 Resolved Problems Problem Noted Date Diagnosed Date Resolved Date Arthritis of left knee 08/28/202107/01 Encounters Date Type Department Care Team Description 08/28/2024 Telephone [facility] [address] [facility] [place] [address] Earl Dumont MD HOME HEALTH REFERRAL NEEDED 08/25/2024 Telephone [facility] [address] [facility] [place] [address] Earl Dumont MD CALLBACK 08/22/2024 Refill [facility] [address] [facility] [place] [address] Earl Dumont MD Right leg pain 08/21/2024 2:15 PM EDT Office Visit [facility] [address] [facility] [place] [address] Earl Dumont MD Medicare annual wellness visit, subsequent (Primary Dx); Right leg pain; Essential hypertension; Diastolic dysfunction with chronic heart failure; Acquired hypothyroidism; Age-related osteoporosis without current pathological fracture; Generalized anxiety disorder; Recurrent major depressive disorder, in full remission; History of pulmonary embolism; Multiple subsegmental pulmonary emboli without acute cor pulmonale; Hypercholesterolemia; Lower extremity edema; Memory change 08/21/2024 Travel 08/04/2024 Telephone [facility] [address] [facility] [place] [address] Earl Dumont MD Advice Only 07/28/2024 Telephone [facility] [address] [facility] [place] [address] Earl Dumont MD Advice Only 07/17/2024 Refill [facility] [address] [facility] [place] [address] Earl Dumont MD Generalized anxiety disorder 07/17/2024 Refill [facility] [address] [facility] [place] [address] Earl Dumont MD Generalized anxiety disorder 07/07/2024 Telephone [facility] [address] [facility] [place] [place] [address] Earl Dumont MD OT 07/06/2024 [facility] [address] [facility] [place] [address] Earl Dumont MD Advice Only 07/05/2024 Telephone [facility] [address] [facility] [place] [address] Earl Dumont MD ORDER REQUEST 07/05/2024 Telephone [facility] [address] [facility] [place] [address] Earl Dumont MD New Med Request 07/05/2024 Telephone [facility] [address] [facility] [place] [address] Earl Dumont MD MEDICATION REQUEST 06/30/2024 Telephone [facility] [address] [facility] [place] [address] Earl Dumont MD REQUEST CALL BACK FROM NURSE 06/26/2024 12:30 PM EDT Office Visit [facility] [address] [place] [address] Earl Dumont MD Chronic idiopathic constipation (Primary Dx); Diastolic dysfunction with chronic heart failure; Acquired hypothyroidism; Essential hypertension; Hypercholesterolemia; Memory change; Lower extremity edema; History of pulmonary embolism; Multiple subsegmental pulmonary emboli without acute cor pulmonale; Gastroesophageal reflux disease, unspecified whether esophagitis present; COPD with exacerbation; Shortness of breath; Panlobular emphysema; Age-related osteoporosis without current pathological fracture; Generalized anxiety disorder; Recurrent major depressive disorder, in full remission; Primary insomnia 06/26/2024 Travel 06/21/2024 Refill [facility] [address] [place] [address] Earl Dumont MD Memory change 06/08/2024 Refill [facility] [address] [place] [address] Earl Dumont MD Generalized anxiety disorder; Recurrent major depressive disorder, in full remission 06/02/2024 Refill [facility] [address] [facility] [place] [address] Ronald Garrison MD COPD with exacerbation from Last 3 Months Immunizations Immunization Administration Dates Next Due COVID-19 (MODERNA) 1st,2nd,3rd Dose Monovalent 0 04/17/2020,03/20/2020 Flu Vaccine Quad PF >36MO 12/13/2015 Fluzone High-Dose 65+yrs 02/03/2021 Influenza Seasonal Injectable 10/27/2010 Influenza, Unspecified 10/03/2019 Pneumococcal Conjugate 13-Valent (PCV13) 021,12/30/2015 Pneumococcal Polysaccharide (PPSV23) 01/02/2019 Td (TDVAX) 12/17/1998 Family History Medical History Relation Name Comments Hypertension Father Ghassan virgen Dadtiffanie Coronary artery disease Mother Hyperlipidemia Paternal Aunt Aunt Rosie Hyperlipidemia Son Robert garcia Relation Name Status Comments Father Ghassan virgen Mother Paternal Aunt Aunt Rosie garcia Social History Tobacco Use Types Packs/Day Years Used Date Smoking Tobacco: Never Smokeless Tobacco: Never Tobacco Cessation:Counseling Given: Not Answered Alcohol Use Standard Drinks/Week Comments Not Currently [...] place to sleep or slept in a snf (including now)? No 10/01/2021 PHQ-2 Answer Date Recorded Patient Health Questionnaire-2 Score 1 08/21/2024 Comments No Sex and Gender Information Value Date Recorded Sex Assigned at Not on file Legal Sex Female 1:07 PM EDT Gender Identity Not on file Sexual Orientation Not on file Occupation Industry Job Start Date Job End Date retired Not on file Not on file Not on file Last Filed Vital Signs Vital Sign Reading Time Taken Comments Blood Pressure 132/68 08/21/2024 2:35 PM EDT Pulse 106 08/21/2024 2:35 PM EDT Temperature 36.2 C (97.1 F) 06/26/2024 12:26 PM EDT Respiratory Rate 18 08/21/2024 2:35 PM EDT Oxygen Saturation 99% 08/21/2024 2:35 PM EDT Inhaled Oxygen Concentration - - Weight 105 kg (232 lb) 08/21/2024 2:35 PM EDT Height 160 cm (5' 2.99 ) 08/21/2024 2:35 PM EDT Body Mass Index 41.11 08/21/2024 2:35 PM EDT Plan of Treatment Upcoming Encounters Date Type Department Care Team (Late st Contact Info) Description 02/19/2025 3:00 PM EST Office Visit [facility] [address] [facility] [place] [address] Earl Dumont MD [address] [place] [address] Health Maintenance Due Date Last Done Comments ZOSTER VACCINE (1 of 2) 1994 TDAP/TD VACCINES (2 - Tdap) 12/17/2008 12/17/1998 RSV Vaccine - Adults (1 - 1- dose 75+ series) 2019 COVID-19 Vaccine (4 - 2023-2 5 season) 2023 09/09/2021, 04/17/2020, 03/20/2020 INFLUENZA VACCINE 11/08/2024 02/03/2021, , 12/13/2015, Additional history exists LIPID PANEL 12/05/2024 12/06/2023, 03/0 05/2023, 10/02/2022, Additional history exists ANNUAL WELLNESS VISIT 08/21/2025 08/21/2024 , 07/14/2023, 07/01/2022, Additional history exists Pneumococcal Vaccine 50+ Completed 021, 01/02/2019, 12/30/2015 DXA SCAN Discontinued Medical Devices Implanted Type Area Call Out Operator Device Identifier Shelf Expiration Date Model / Serial / Lot Cmt Bone Simplex/P Full Dose 10/Pk - [id number] Implanted:Qty : 1 on 08/28/2021 by Nilesh Hare MD at [facility] Implant Left: Knee MARTÍN EDWEY [id number] 09/08/2023 [id number] / / [id number] Cmt Bone Simplex/P Full Dose 10/Pk - [id number] Implanted:Qty : 1 on 08/28/2021 by Nilesh Hare MD at [facility] Implant Left: Knee MARTÍN DEWEY 11/08/2023 [id number] / / [id number] Dev Contrl Tiss Stratafix Spiral Pdo Bidir 1 [id number] - [id number] Implanted:Qty : 1 on 08/28/2021 by Nilesh Hare MD at [facility] Implant Left: Knee [employer] 06/07/2026 [id number] / / [id number] Insrt Tib/Kn Triath Ps A/Poly Sz4 9mm - [id number] Implanted:Qty : 1 on 08/28/2021 by Nilesh Hare MD at [facility] Implant Left: Knee MARTÍN DEWEY [id number] 12/27/2021 [id number] / / [id number] Comp Fem Triath Ps Cmt No4 Lt - [id number] Implanted:Qty : 1 on 08/28/2021 by Nilesh Hare MD at [facility] Implant Left: Knee MARTÍN DEWEY [id number] 06/18/2025 [id number] / / [id number] Peg Fem Fix Triathlon Dist Mod Pk/2 - [id number] Implanted:Qty : 1 on 08/28/2021 by Nilesh Hare MD at [facility] Implant Left: Knee MARTÍN DEWEY [id number] 06/01/2025 [id number] / / [id number] Pat Triath Asym X3 [id number] - [id number] Implanted:Qty : 1 on 08/28/2021 by Nilesh Hare MD at [facility] Implant Left: Knee MARTÍN DEWEY [id number] 06/21/2026 [id number] / / [id number] Totl Kn Med Demand Martín - [id number] Implanted:Qty : 1 on 08/28/2021 by Nilesh Hare MD at [facility] Implant Left: Knee MARTÍN DEWEY [id number] / / Procedures Procedure Name Priority Date/Time Associated Diagnosis Comments SCANNED EKG 07/10/2024 SCANNED EKG 07/10/2024 SCANNED EKG 07/10/2024 SCANNED - IMAGING 07/10/2024 SCANNED - IMAGING 07/10/2024 SCANNED - IMAGING 07/10/2024 FL VIDEO SWALLOW W SPEECH SINGLE-CONTRAST Routine 06/19/2024 Dysphagia, unspecified type LIPID PANEL Routine 12/06/2023 2:25 PM EDT Hypercholesterolemia from Last 3 Months or Most Recently Relevant to Health Maintenance Results * ECG Scan (07/10/2024) Only the most recent of3 resultswithin the time period is included. Earl Dumont MD ECG ORDERABLES Final Result * IMAGING SCANNED (07/10/2024) Only the most recent of3 resultswithin the time period is included. Anatomical Region Laterality Modality Radiographic [place] ging Earl Dumont MD [facility] DIAGNOSTIC IMAGING ORDERABL ES Final Result * FL Video Swallow With Speech Single Contrast (06/19/2024) Anatomical Region Laterality Modality Head and Neck N/A Radiographic Violette ging Earl Dumont MD [facility] FLUOROSCOPY ORDERABLES Aspen l Result * Lipid Panel (12/06/2023 2:25 PM EDT) Total Cholesterol 148 100 - 199 mg/dL [facility] Triglycerides 84 0 - 149 mg/dL [facility] HDL Cholesterol 59 >39 mg/dL [facility] VLDL Cholesterol Fortunato 16 5 - 40 mg/dL [facility] LDL Chol Calc (NIH) 73 0 - 99 mg/dL [facility] Blood 12/06/2023 2:25 PM EDT 12/06/2023 Narrative [facility] ([facility]) - 12/07/2023 8:17 AM EDT Performed at: 01 - [facility] [address] [place], [place] [id number] Computer Repair Technician: Osito Cabezas PhD, Phone: [phone] Patient Fasting: N us Earl Dumont MD LAB BLOOD ORDERABLES Final Resu lt [facility] ([facility] [address] [place] [address], [place] [phone] [facility] [address] [place] [address], from Last 3 Months or Most Recently Relevant to Health Maintenance Insurance [employer] HMO Advance Directives * CPR (Attempt to Resuscitate) (Latest Code Status on File) Date Activated Date Inactivated Comments 08/28/2021 5:20 PM 09/02/2021 1:46 PM Question Answer Comments Code Status (Patient has no pulse and is not breathing): CPR (Attempt to Resuscitate) Medical Interventions (Patie nt has pulse or is breathing): Full Level Of Support Discussed With: Patient Care Teams Tester Compressed Gases Relationship Specialty Start Date End Date Earl Dumont MD [address] [place] [address] PCP - General Family Medicine 01/23/20
--- OUTSIDE RECORDS SUMMARY | 2024-08-28 11:48 | XMS_ITS | Encounter Summary ---
[facility] Organization [facility] Address [address] [place] [address] Care Team Providers Care Hourly Associate Name Role Phone Earl Dumont MD Primary Care Provider [phone] Reason for Visit * Reason Comments Med Refill Encounter Details Date Type Department Care Team (Late st Contact Info) Description 04/10/2022 Refill [facility] [address] [place] [address] Earl Dumont MD [address] [place] [address] Essential hypertension Social History Tobacco Use Types Packs/Day Years [...] Retired PHQ-9: Brief Depression Severity Measure Score 1 04/25/2021 Hunger Vital Sign Answer Date Recorded Within [...] place to sleep or slept in a penitentiary (including now)? No 10/01/2021 Comments No Sex and Gender Information Value [...] Description 02/19/2025 3:00 PM EST Office Visit [facility] [address] [address] Earl Dumont MD [address] [address] documented as of this encounter Visit Diagnoses Diagnosis Essential hypertension Unspecified essential hypertension documented in this encounter Additional Health Concerns Assessment Noted Time PHQ-2 Depression Total Score: 1 04/26/19 22 2:42 PM EDT documented as of this encounter Care Teams Hourly Associate Relationship Specialty Start Date End Date Earl Dumont MD [address] [address] PCP - General Family Medicine 01/23/20 documented as of this encounter
--- OUTSIDE RECORDS SUMMARY | 2024-08-28 11:48 | XMS_ITS | Encounter Summary ---
Author Organization [facility] Address [address] [place] [address] Care Team Providers Care Light Bulb Tester Name Role Phone Earl Dumont MD Primary Care Provider [phone] Reason for Visit * Reason Onset Date Comments REQUEST CALL BACK FROM NURSE 06/30/2024 Encounter Details Date Type Department Care Team (Late st Contact Info) Description 06/30/2024 Telephone [facility] [address] [place] [address] Earl Dumont MD [address] [place] [address] REQUEST CALL BACK FROM NURSE Social History Tobacco Use Types Packs/Day Years [...] place to sleep or slept in a long-term (including now)? No 10/01/2021 PHQ-2 Answer Date [...] encounter Miscellaneous Notes * Telephone Encounter - Willian Yan MA - 06/30/2024 5:34 PM EDT Patient notified. * Telephone Encounter - Earl Dumont MD - 06/30/2024 4:59 PM EDT Alleve does increase her risk for GI bleed while on blood thinner. T ylenol is safer and what we recommend when taking eliquis * Telephone Encounter - Joshua Hill - 06/30/2024 12:28 PM EDT PATIENT HAS CALLED REQUESTING A CALL BACK TO LET HER KNOW IF SHE CAN TAKE ALEVE WHILE ON BLOOD THINNER. PATIENT STATES THE ALEVE IS MORE EFFECTIVE THAN TYLENOL FOR PAIN. CALL BACK NUMBER IS [phone] documented in this encounter Plan of Treatment Upcoming Encounters Date Type Department Care Team (Late st Contact Info) Description 02/19/2025 3:00 PM EST Office Visit [facility] [address] [place] [phone] Earl Dumont MD [address] [place] [address] documented as of this encounter Visit Diagnoses Not on filedocumented in this encounter Additional Health Concerns Assessment Noted Time PHQ-2 Depression Total Score: 2 07/14/19 24 4:30 PM EDT documented as of this encounter Care Teams Light Bulb Tester Relationship Specialty Start Date End Date Earl Dumont MD [address] [address] PCP - General Family Medicine 01/23/20 documented as of this encounter
--- OUTSIDE RECORDS SUMMARY | 2024-08-28 11:48 | XMS_ITS | Encounter Summary ---
[facility] Organization [facility] Address [address] [place] [address] Care Team Providers Care Data Designer Name Role Phone Earl Dumont MD Primary Care Provider [phone] Reason for Visit * Reason Onset Date Comments MEDICATION REQUEST 07/05/2024 Encounter Details Date Type Department Care Team (Late st Contact Info) Description 07/05/2024 Telephone [facility] [address] [facility] [place] [address] Earl Dumont MD [address] [facility] [place] [address] MEDICATION REQUEST Social History Tobacco Use Types Packs/Day [...] Encounter - Yolanda Rand MA - 07/06/2024 2:42 PM EDT Duplicate message, see other encounter. * Telephone Encounter - Marissa Castillo RegSched Rep - 07/05/2024 2:36 PM EDT Caller: Patito Garcia Relationship: Self Best call back number: [phone] What medication are you requesting: SOMETHING FOR ACID RE FLUX What are your current symptoms: NAUSEA SICK AT HER SICK AT HER STOMACH SOME VOMITING How long have you been experiencing symptoms: FOR A LONG TIME Have you had these symptoms before: [x] Yes [] No Have you been treated for these symptoms before: [x] Yes [] No If a prescription is needed, what is your preferred pharmacy and phone number: [id number] - [place], [place] - [address] [address] [address] [facility] - [phone] [facility] [phone] FX Additional notes: THE PATIENT STATES THAT SHE THINKS THAT THE DOCTOR HAD HER ON A MEDICATION FOR THAT IN THE PAST THEPATIENT WOULD LIKE TO HAVE A MEDICATION CALLED IN FOR HER documented in this encounter Plan of Treatment Upcoming Encounters Date Type Department Care Team (Late st Contact Info) Description 02/19/2025 3:00 PM EST Office Visit [facility] [address] [facility] [place] [address] Earl Dumont MD [address] [facility] [address] [place] [address] documented as of this encounter Visit Diagnoses Not on filedocumented in this encounter Additional Health Concerns Assessment Noted Time PHQ-2 Depression Total Score: 2 07/14/19 24 4:30 PM EDT documented as of this encounter Care Teams Data Designer Relationship Specialty Start Date End Date Earl Dumont MD [address] [facility] [address] [place] [address] PCP - General Family Medicine 01/23/20 documented as of this encounter
--- OUTSIDE RECORDS SUMMARY | 2024-08-28 11:48 | XMS_ITS | Data Portability ---
Author Organization [facility] [place] [facility] Address [address] [place] [address] Care Team Providers Care Supervisor Customer Services Name Role Phone URI GOMEZ Primary Care Provider Assessment No assessment recorded. Plan of Treatment Reminders Order Date Submit Date Provider Last Modified By Organization Details Last Modified Time Details Appointments None recorded. Lab None recorded. Referral None recorded. Procedures home sleep testing (PROC) 2022 023 [facility] (Centralized Scheduling), [address] [place], [address], 3 10:53:07 Surgeries None recorded. Imaging CT, chest, w/o contrast 2022 023 [facility] (Centralized Scheduling), [address] [facility], [place], [address], 3 14:35:05 CT, chest, w/o contrast 2022 023 [facility] (Centralized Scheduling), [address], [place], [address], 3 10:45:26 pharmacolo gic stress test 2022 023 [facility] (Centralized Scheduling), [address] [place], [address], 3 13:17:56 Medication Orders Lasix 40 mg tablet 2022 023 [id number], [address] [place], [id number], 3 14:27:57 Entresto 49 mg-51 mg tablet 2022 023 [id number], [address] [facility] [address] [place], [id number], 3 14:49:47 Patient TargetsNo targets recorded. Patient [...] (PROC ) No observ ation record ed. [email or web address] [address], [place], [address], 07/14/2022 16:22:03 08/25/19 23 08/24/2022 CT, [facility] [address] [place] [address] Phone: Fax: Name: ROB GARCIA Exam Date: : 945 Age 77 Gender : F Access ion: [id number] Physic mercedes: SALTY MORALES Facili ty: [facility] Facili ty HSV: Outpat ient Exam: CT [...] lower lobe is actual ly in the manager erp ior right upper lobe. This is essent [...] lower lobe is actual ly in the manager erp ior right upper lobe. This is essent [...] Thank you for referr ROB Bello to [facility]. Legall y authen ticate d by POPE DESIRE Garcia 0 08-24 14:22: 30 CC'ed Logic: Orderi ng Provid er: ANDREW RUBY Attend ing Provid er: ANDREW RUBY Admitt ing Provid er: ANDREW RUBY [facility] [address] [facility], [place], [address], 08/24/2022 14:42:22 Result Notes Documentation Provider Name and Address Organization Details Recorded Time Ct, Chest, W/o Contrast : [facility] [address] [place] [address] Name: ROB GARCIA Exam Date: 08/24/2022 : 1945 Age 77 Gender: F Physician: SALTY MORALES Facility: [facility] Facility HSV: Outpatient Exam: CT CHEST W/O [...] Thank you for referring ROB GARCIA to [facility]. Legally authenticated by POPE DESIRE Garcia 2022-08-24 14:22:30 CC'ed Logic: Ordering Provider: ANDREW RUBY Attending Provider: ANDREW RUBY Admitting Provider: ANDREW Morales MD [facility], [place], [address], [facility] & [place] 08/24/2022 14:42:22 Problems Name Problem SNOMED Code Status Onset Date Resolution Date Notes Provider Name and Address Organization Details Recorded Time Peptic ulcer 98894474 Active Leighann C[place] null, [place] - [facility] - [facility] & [place] 3 14:25:16 Chronic obstructiv e pulmonary disease 26896710 Active Leigh[place] [facility] - & [place] 3 14:25:16 Angina pectoris 025154456 Active Leigh[place] [facility] - & [place] 3 14:25:16 Degenerati on of lumbar interverte bral disc 89086079 Active Leighann C[place] - [facility] - [facility] & [place] 3 14:25:16 Myofascial pain 148097293 Active [place] [facility] - & [place] 3 14:25:16 Knee pain Active [place] - & [place] 3 14:25:16 Pain in left knee Active [place] & [place] 3 14:25:16 Pain of right hip joint 1849621965245 02 Active Leighann C[place] [place] & [place] 3 14:25:16 Disorder of carotid artery 956504005 Active Leighann C[place] - [facility] & [place] 3 14:25:16 Chronic pain syndrome 802848354 Active [place] & [place] 3 14:25:16 Hypertensi ve disorder 79564109 Active [place] & [place] 3 14:25:16 History of carotid endarterec kory 158447689 Active [place] & [place] 3 14:25:16 Lumbosacra l spondylosi s without myelopathy 31933249 Active Leighann C[place] [place] & [place] 3 14:25:16 Hyperlipid emia 46708591 Active Leighann C[place] & [place] 3 14:25:16 Opioid dependence 98898783 Active Leighann [place] & [place] 3 14:25:16 Chronic pain 46341592 Active Leighann C[place] & [place] 3 14:25:16 Severe persistent asthma 851383484 Active 2022 Salty Morales MD [address], [place] [address] , [place] - [facility] - [place] & [place] 3 14:32:32 Dyspnea on exertion 86267108 Active 2022 Salty Morales MD [address], [place] [address] , [place] - [facility] & [place] 3 14:32:41 Chronic hypoxemic respirator y failure 574397353 Active 2022 Salty Morales MD [address], [place] [address] , [place] - [facility] & [place] 3 14:32:54 Obstructiv e sleep apnea syndrome 30013851 Active 2022 Salty Morales MD [address], [place] [address] , [place] - [facility] & [place] 3 14:33:01 Obesity 581597039 Active 2022 Salty Morales MD [address], [place] [address] , [place] - [facility] - [place] & [place] 3 14:33:09 Nodule of lung 172229894 Active 2022 Salty Morales MD [address], [place] [address] , [place] - [facility] & [place] 14:33:42 Problem Notes None recorded. Procedures Surgical History Date Name Laterality Status Provider Name and Address Organization Details Recorded Time 02/08/19 23 Joint Replacement completed Román ARAMBULA Sajan ROBERTS [facility] & [place] 06/01/2022 14:13:02 02/08/18 86 Head or Neck Surgery completed Leighann Moeller NATALIEPUNEET [facility] & [place] 06/09/2022 15:40:42 02/08/18 74 Abdominal Surgery completed Leighann ARAMBULA Sajan ARMANDO [facility] & [place] 06/09/2022 15:40:42 02/08/18 66 Cancer Surgery completed Leighann ROBERTS [facility] & [place] 06/09/2022 15:40:42 Imaging Results None recorded. Procedure [...] Inhaled oxygen flow rate Heart rate Systolic And Diastolic Provider Name and Address Organization Details Last Updated DateTime 3 167.64 cm 40.8 kg/m2 017817. 87 g 97 % 97 % 4 L/min 64 /min 150/68 mm[Hg] Leighann Cai [place] - [facility] 3 14:24:12 Date Recorded Body height Body mass index (BMI) Body weight Body temperature Oxygen saturation Oxygen saturation in Arterial blood by Pulse oximetry Inhaled oxygen flow rate Heart rate Systolic And Diastolic Provider Name and Address Organization Details Last Updated DateTime 3 167.64 cm 39.5 kg/m2 320897. 33 g 97.3 [degF] 96 % 96 % 3 L/min 76 /min 127/71 mm[Hg] Román perales [place] - [facility] & [place] 3 14:17:23 Date Recorded Body height Body mass index (BMI) Body weight Oxygen saturation Oxygen saturation in Arterial blood by Pulse oximetry Inhaled oxygen flow rate Heart rate Systolic And Diastolic Provider Name and Address Organization Details Last Updated DateTime 3 167.64 cm 42.6 kg/m2 180621. 39 g 97 % 97 % 2 L/min 64 /min 108/64 mm[Hg] Leighann Cai [facility] & [place] 3 15:40:12 Date Recorded Body height Body mass index (BMI) Body weight Body temperature Oxygen saturation Oxygen saturation in Arterial blood by Pulse oximetry Heart rate Systolic And Diastolic Provider Name and Address Organization Details Last Updated DateTime 3 167.64 cm 39.1 kg/m2 119309. 35 g 97.1 [degF] 95 % 95 % 60 /min 95/60 mm[Hg] Román Neli perales [facility] & [place] 3 14:21:50 Date Recorded Body height Body mass index (BMI) Body weight Oxygen saturation Oxygen saturation in Arterial blood by Pulse oximetry Heart rate Systolic And Diastolic Provider Name and Address Organization Details Last Updated DateTime 3 167.64 cm 39.4 kg/m2 411165. 54 g 95 % 95 % 71 /min 116/82 mm[Hg] Jasmin Castellanosl [facility] & [place] 3 14:12:07 Social History Question Answer Notes LastModified by [employer] Details LastModified Time Tobacco Smoking Status Never Smoker Leighann Cai [facility] & [place] 05/05/2022 14:29:41 Are You Blind Or Do You Have Difficulty Seeing? Yes [email or web address] Information not available 06/01/2022 What Is Your Level Of Caffeine Consumption? None Information not available 09/08/2022 Has Tobacco Cessation Counseling Been Provided? No Information not available 09/08/2022 How Many Days In The Past Year Have You Consumed 4 Or More Drinks? 2 Information not available 09/08/2022 Sex: Unknown Functional Status Question Answer Note LastModified by [employer] Details LastModified Time Do you use any illicit or recreational drugs? No [email or web address] Information not available 05/05/2022 Do you or have you ever used any other forms of tobacco or nicotine? No Information not available 09/08/2022 What is your level of alcohol consumption? Occasional [email or web address] Information not available 05/05/2022 What is your exercise level? Moderate [email or web address] Information not available 06/01/2022 Mental Status None [...] available 06/08/2022 13:01:15 Medical History Condition Response Obesity Y Vision or Eye Problems Y Arthritis Y Ear or Hearing Problems Y Congestive Heart Failure (CHF) Y Back Problems Y Thyroid Problems Y COPD Y Osteoporosis/Osteopenia Y Reflux/GERD Y High Cholesterol Y Spine Problems Y Headaches Y Hypertension Y Gynecological History Statement/Question Response Current Control Method N/A Sexually Active? N Obstetrics History GPAL:G 0 P 0 0 0 0 Past Encounters Encounter ID Performer Location Encounter Start Date Encounter Closed Date Diagnosis/Indication Diagnosis SNOMED-CT Code Diagnosis ICD10 Code Diagnosis Note [id number] ALEX BOSWELL STATISTICS TUTOR-C [facility] [address] [facility] [address] [place] [address] 05/05/2022 13:01:28 05/05/2022 16:16:51 Chronic diastolic heart failure 607191428 I50.32 PCP started Entersto High troponin I level 44 4172458 R77.8 mildly elevated troponin at 149 in the hospital Edema of l ower extremity 900344772 R60.0 on Lasix 40mg [id number] Salty Morales MD [facility] Pulmonolo gy [address] [place] [address] 06/01/2022 14:08:11 06/01/2022 14:31:21 Severe persistent asthma 778241316 J45.50 Spirometry done in the office today [...] more liberally. Chronic hy poxemic respiratory failure 388512896 J96.11 Patient instructed to continue with the use of oxygen and titrate to maintain O2 saturation above 90%. Obstructiv e sleep apnea syndrome 02508888 G47.33 Given patient's symptoms and possible pulmonary hypertensi on then will arrange for her to have an in-home sleep study and treat according to the results if indicated. Obesity 575273341 E66.9 Patient recommende d to diet and exercise in order to lose weight. Nodule of lung 323486856 R91.[address] of the chest in 3 months to assure stability/ resolution of the nodule. Patient instructed to call if there is any new symptoms. [id number] ALEX BOSWELL NP-C [facility] [address] [place] [address] 06/09/2022 14:54:30 06/09/2022 15:55:51 Chronic diastolic heart failure 708268107 I50.32 PCP started Enterstolo w sodium diet High troponin I level 44 2546837 R77.8 mildly elevated troponin at 149 in the hospital 04/24/22 secondary to hypoxia. Edema of l ower extremity 322438224 R60.0 on Lasix 40mglow sodium diet [id number] Salty Morales MD [facility] [address] [place] [address] 08/06/2022 14:11:23 08/06/2022 14:26:36 Severe persistent asthma 921364026 J45.50 Patient instructed to continue with the use of Trelegy daily.Santa ent use her Paz on a p.r.n. basis. Dyspnea on exertion 6084 5006 R06.09 Patient recommende d to exercise as tolerated and use her Paz on a p.r.n. basis and more liberally. Chronic hy poxemic respiratory failure 547748166 J96.11 Patient instructed to continue with the use of oxygen and titrate to maintain O2 saturation above 90%. Obstructiv e sleep apnea syndrome 04408945 G47.33 Results of in-home sleep study showed evidence of mild DO with AHI of 12.1 and that was discussed with the patient and her family and will arrange for her to have an auto Pap. Patient recommende d to comply with the cleaning instructio ns and supply changes. Patient recommende d to try to lose weight more actively. Obesity 223628201 E66.9 Patient recommende d to diet and exercise in order to lose weight. Nodule of lung 820055392 R91.1 Patient did not had her CT of the chest done so will send a new order to follow-up on the lung nodules. Patient instructed to call if there is any new symptoms. [id number] ALEX BOSWELL, SHARATH-C [facility] [address] [place] [address] 09/08/2022 14:01:07 09/08/2022 14:46:45 Chronic diastolic heart failure 073844368 I50.32 PCP started Entersto High troponin I level 44 5624406 R77.8 mildly elevated troponin at 149 in the hospital Edema of l ower extremity 820004292 R60.0 on Lasix 40mg Health Concerns Section [...] MEDIBLUE PLUS (MEDICARE REPLACEMENT HMO) [id number] Rob Tigre Garcia [id number] Rob Garcia 12/14/2023 1 [place] Rob Hipolito Garcia [id number] Rob Tigre Garcia 12/14/2023 1 [place]MEDIC[place] REPLACEMENT REGIONAL PPO[place] [id number] Rob Garcia [id number] Rob Garcia 12/14/2023 1 [place] [id number] Rob Garcia [id number] Robreinier Garcia Notes Date Note Type [...] cardiac history. EKG shows SB. ALEX BOSWELL, STATISTICS TUTOR-C [address] [facility], [place], [address], [place] - [facility] - [place] & [place] 05/05/2022 15:12:18 06/01/2022 text/html Patient presents to the office today for hospital follow-up visit. Patient states that she is almost back to her baseline without significant shortness breath at rest but had some dyspnea on exertion. She is using Trelegy daily but did not use her Apz. She denies fever, chills or diaphoresis. No chest pain, angina or palpitation. No PND or orthopnea. Patient denies wheezing or hemoptysis. Patient denies significant change in her weight or appetite. Patient having excessive daytime sleepiness and snoring at night with witnessed apnea. Salty Morales MD [address], [place], [address], [facility] & [place] 06/01/2022 14:35:55 06/09/2022 text/html Patient is a [...] EF with no wall motion abnormalities. ALEX BOSWELL, STATISTICS TUTOR-C [address], [place], [address], [facility] & [place] 06/09/2022 15:58:11 08/06/2022 text/html Patient presents to [...] her weight or appetite. Salty Morales MD [address], [place], [address], [facility] & [place] 08/06/2022 14:30:54 09/08/2022 text/html Patient is a [...] stable. EKG 05/05/22 shows SB, Rate 57, UT 164ms, QRS 86ms, QT/QTc 438/426 ms. +HTN+HLD+BLEE+DO now on CPAP ECHO 04/22/22 showed normal EF with no wall motion abnormalities. Pharm Nuclear stress 05/30/22 No evidence of myocardial ischemia. Normal calculated EF of 77%. ALEX BOSWELL, STATISTICS TUTOR-C [address], [place], [address], [facility] - [place] - [place] & [place] 09/08/2022 14:50:19 OBGyn Episode No OBEpisode recorded.
--- NOTE | 2024-08-28 11:50 | [facility].EDGENADL ---
Discharge Plan Disposition Patient Disposition: Home, Self-Care Prescriptions Prescriptions: No Action alendronate 70 mg tablet 70 mg PO WEEKLY atorvastatin 40 mg Tablet 40 mg PO HS 30 Days Qty: 30 0RF irbesartan 75 mg Tablet 37.5 mg PO HS 30 Days Qty: 15 0RF furosemide 40 mg tablet 20 mg PO BIDL 30 Days Qty: 30 0RF fluticasone propion-salmeterol 250-50 mcg/dose blister with device 1 ea INHALATION BIDRT 30 Days Qty: 60 0RF amiodarone 200 mg Tablet 400 mg PO BID 30 Days Qty: 120 0RF donepezil 10 mg tablet 10 mg PO HS 30 Days Qty: 30 0RF hydroxyzine HCl 50 mg tablet 50 mg PO Q6HP PRN (Reason: Anxiety) 30 Days Qty: 90 0RF Patient Comments: TAKE 1/2 TO 1 TABLET BY MOUTH EVERY 6 HOURS NEEDED FOR ANXIETY clopidogrel 75 mg Tablet 75 mg PO DAILY 30 Days Qty: 30 0RF buspirone 30 mg tablet 30 mg PO BID 30 Days Qty: 60 0RF levothyroxine 125 mcg tablet 125 mcg PO DAILYDM 30 Days Qty: 30 0RF docusate sodium [Stool Softener] 100 mg capsule 100 mg PO BID 30 Days Qty: 60 0RF albuterol sulfate [Ventolin HFA] 90 mcg/actuation HFA aerosol inhaler 2 puff inhalation Q4HP PRN (Reason: shortness of breath or wheezing) 30 Days Qty: 8.5 0RF memantine 5 mg tablet 5 mg PO BID 30 Days Qty: 60 0RF duloxetine 60 mg capsule,delayed release(DR/EC) 60 mg PO DAILY Qty: 30 0RF Eliquis 5 mg tablet 5 mg PO BID Qty: 180 2RF dapagliflozin propanediol [Farxiga] 10 mg Tablet 10 mg PO DAILY 30 Days Qty: 30 0RF Referrals Follow up/Referrals: Provider,Referral, MD [Primary Care Provider, Medical] - See instructions Activity Restrictions/Add. Instructions Additional Instructions/Restrictions: Wear BiPAP at night when you are sleeping. Please call Dr. Dumont for pain control outpatient. Wear your oxygen at 2 and half liters all the time. If you have any more problems or concerns please return to the ED. Clinical Impressions Clinical Impression: Difficulty in walking, Oxygen dependent, Acute hypercapnic respiratory failure, Acute knee pain Back pain Qualifiers: Back pain location: low back pain Chronicity: acute Back pain laterality: midline Sciatica presence: without sciatica Qualified Code(s): M54.50 - Low back pain, unspecified Instructions Patient Instructions: Chronic Obstructive Pulmonary Disease, DI for Knee Pain Print Language Print Language: Arabic Discharge ED Provider: Medardo Banda General Adult HPI <Ann-Mariekate Holt (ED), MANAGER SOFTWARE - Last Filed: 08/28/24 15:48> General Chief complaint: Weakness Stated complaint: right leg pain, swollen Time Seen by Provider: 08/28/24 11:32 History of Present Illness HPI narrative: 79-year-old female presents to the ED for complaint of increased right leg pain. She has been had difficulty walking. Family states that she was here after a fall for a week and sent to [facility] for rehab. She was in rehab doing physical therapy and it was helping but toward the end of it it was starting to make her worse. Patient states that she has pain from her right knee down. She says this makes it hard to walk. She was using a walker but now she is having to use a motorized scooter to get around her house. Patient has 2-1/2 L at baseline currently she is on 4 L nasal cannula. O2 sats 94%. Patient has history of COPD, CHF, stents, CAD, A-fib, PE, back and hip pain, and hypertension. Patient does complain of constipation recently. Related Data Home Medications ?Medication ?Instructions ?Recorded ?Confirmed alendronate 70 mg tablet 70 mg PO WEEKLY 02/12/24 08/05/24 Held on 08/09/24. Instructions: until back home Previous Rx's ?Medication ?Instructions ?Recorded atorvastatin 40 mg tablet 40 mg PO HS 30 days #30 tabs 02/15/24 albuterol sulfate 90 mcg/actuation 2 puff inhalation Q4HP PRN 08/09/24 aerosol inhaler (Ventolin HFA) shortness of breath or wheezing 30 days #8.5 grams amiodarone 200 mg tablet 400 mg (2 x 200 mg) PO BID 30 days 08/09/24 #120 tabs apixaban 5 mg tablet (Eliquis) 5 mg PO BID #180 tabs 08/09/24 buspirone 30 mg tablet 30 mg PO BID 30 days #60 tabs 08/09/24 clopidogrel 75 mg tablet 75 mg PO DAILY 30 days #30 tabs 08/09/24 dapagliflozin propanediol 10 mg 10 mg PO DAILY 30 days #30 tabs 08/09/24 tablet (Farxiga) docusate sodium 100 mg capsule 100 mg PO BID 30 days #60 caps 08/09/24 (Stool Softener) donepezil 10 mg tablet 10 mg PO HS 30 days #30 tabs 08/09/24 duloxetine 60 mg capsule,delayed 60 mg PO DAILY #30 caps 08/09/24 release fluticasone 250 mcg-salmeterol 50 1 ea inhalation BIDRT 30 days #60 08/09/24 mcg/dose blistr powdr for ea inhalation furosemide 40 mg tablet 20 mg (1/2 x 40 mg) PO BIDL 30 08/09/24 days #30 tabs hydroxyzine HCl 50 mg tablet 50 mg PO Q6HP PRN Anxiety 30 days 08/09/24 #90 tabs irbesartan 75 mg tablet 37.5 mg (1/2 x 75 mg) PO HS 30 08/09/24 days #15 tabs levothyroxine 125 mcg tablet 125 mcg PO DAILYDM 30 days #30 tabs 08/09/24 memantine 5 mg tablet 5 mg PO BID 30 days #60 tabs 08/09/24 Allergies Allergy/AdvReac Type Severity Reaction Status Date / Time sulfamethoxazole (From AdvReac Mild Nausea Verified 07/24/24 13:36 Bactrim) trimethoprim (From Bactrim) AdvReac Mild Nausea Verified 07/24/24 13:36 COUNTS INCLUDE 234 BEDS AT THE [facility] <Ann-Marie Holt (ED), MANAGER SOFTWARE - Last Filed: 08/28/24 15:48> COUNTS INCLUDE 234 BEDS AT THE [facility] Disclaimer: The information contained in this section may have been updated after the patient was seen, as this information can be updated by other users. Medical History Acute on chronic respiratory failure with hypoxia and hypercapnia Acute on chronic respiratory failure with hypoxemia Acute on chronic heart failure with preserved ejection fraction (HFpEF) Depression Anxiety Pulmonary embolism Osteoarthritis Skin cancer SOB (shortness of breath) on exertion Abnormal echocardiogram Hyperlipidemia (HFpEF) heart failure with preserved ejection fraction CAD (coronary artery disease) HTN (hypertension) Heart failure Elevated troponin Chronic respiratory failure with hypoxia History of COPD Second hand smoke exposure Surgical History History of left knee replacement Family History Other No significant family history Social History Smoking Status: Former smoker alcohol intake: never current occupational status: retired Travel in the last 8 weeks?: None Have you lived/traveled outside [place] in past 30 days?: No Contact w/someone who lives/traveled outside US past 30 days?: No Exposure to someone with infectious disease in past 14 days?: No Do you have a fever (greater than 100.4 F or 38 C)?: No Have you tested positive for COVID-19?: No Exposed to someone with COVID-19 in past 14 days?: No Do you have a sore throat?: No Do you have a cough?: No Do you have any weakness?: No Do you have any diarrhea?: No Are you experiencing any unusual bleeding?: No Do you have any muscle aches/pain?: No Do you have any abdominal pain?: No Are you experiencing loss of taste or smell?: No Other Medical History Have you received the Flu Vaccine for this season: No Have you received the Pneumonia Vaccine: No <Ann-Marie Holt (ED), MANAGER SOFTWARE - Last Filed: 08/28/24 15:48> ROS Obtained: Yes Systems reviewed as appropriate & no additional complaints except as documented Constitutional Constitutional: Reports as per HPI Physical Exam <Ann-Marie Holt (ED), MANAGER SOFTWARE - Last Filed: 08/28/24 15:48> General General appearance: alert Head Head exam: atraumatic and normocephalic Eye Eye exam: Present normal appearance, PERRL and EOMI ENT ENT exam: Present normal oropharynx and mucous membranes moist Neck Neck exam: Present full ROM and trachea midline Respiratory Respiratory exam: Present normal lung sounds bilaterally Cardiovascular Cardiovascular exam: Present regular rate, normal rhythm, normal heart sounds, +S1 and +S2 Abdominal Exam Abdominal exam: Present soft and normal bowel sounds Extremities Exam Extremities exam: Present full ROM, tenderness (Right lower extremity) and normal capillary refill Neurological Exam Neurological exam: Present alert, oriented X3 and normal gait Skin Skin exam: Present warm, dry and intact Medical Decision Making <Ann-Marie Holt (ED), MANAGER SOFTWARE - Last Filed: 08/28/24 15:48> Medical Records Screening: Per USPSTF and CDC recommendations, given the prevalence of disease in our region, it is our hospital?s policy to screen for HIV and viral Hepatitis for all patients aged 18 and over and those with ongoing risk factors. [place] Inquiry Pt receiving controlled substance: No [place] was queried for this patient: No Vital Signs: 08/28/24 11:57 08/28/24 12:00 08/28/24 12:30 Temperature 98.4 F Temperature Source Oral Pulse Rate 71 Pulse Rate [Left Radial] 72 Respiratory Rate 24 25 H 17 Blood Pressure 158/52 H 147/66 H Blood Pressure [Right Arm] 153/59 H Blood Pressure Mean Blood Pressure Mean [Right Arm] 90 02 Sat by Pulse Oximetry 95 95 Oxygen Delivery Method Nasal Cannula Oxygen Flow Rate (LPM) 2 08/28/24 13:12 08/28/24 13:30 08/28/24 14:57 Temperature 98.1 F Temperature Source Pulse Rate 66 63 66 Pulse Rate [Left Radial] Respiratory Rate 18 31 H 20 Blood Pressure 168/65 H 144/60 H 175/64 H Blood Pressure [Right Arm] Blood Pressure Mean 88 Blood Pressure Mean [Right Arm] 02 Sat by Pulse Oximetry 93 L 95 Oxygen Delivery Method BiPAP Room Air Oxygen Flow Rate (LPM) Lab Data Lab Results 08/28/24 12:00: WBC 5.3, RBC 3.51 L, Hgb 9.7 L, Hct 33.8 L, MCV 96.3, MCH 27.6, MCHC 28.7 L, RDW 17.3, Plt Count 168, MPV 10.3, Neut % (Auto) 63.2, Lymph % (Auto) 22.6, [place] % (Auto) 10.4 H, Eos % (Auto) 3.0, Baso % (Auto) 0.6, Neut # (Auto) 3.4, Lymph # (Auto) 1.2, [place] # (Auto) 0.6, Eos # (Auto) 0.2, Baso # (Auto) 0.0, PT 11.4, INR 1.03, APTT 24.8, VBG pH 7.30 L, VBG pCO2 93.4 H, VBG pO2 46.4 H, VBG HCO3 44.9 H, VBG Total CO2 47.8 H, VBG O2 Saturation 80.7 H, VBG Base Excess 15.1 H, VBG Lactic Acid 0.9, Sodium 133 L, Potassium 3.5, Chloride 86 L, Carbon Dioxide 51 H*, Anion Gap -0.5 L, BUN 12, Creatinine 0.70, Estimated Creat Clear 37, Estimated GFR 81, Est GFR ( Amer) 97, Glucose 91, Calcium 9.2, Magnesium 2.0, Total Bilirubin 0.6, AST 30, ALT 20, Alkaline Phosphatase 101, Troponin I 0.03, NT-Pro-B Natriuret Pep 1330 H, Total Protein 6.4, Albumin 3.6, Globulin 2.8, Albumin/Globulin Ratio 1.3, Lipase 38 08/28/24 12:25: Urine Color Yellow, Urine Appearance Clear, Urine pH 6.0, Ur Specific [place] 1.015, Urine Protein Negative, Urine Glucose (UA) 3+, Urine Ketones Trace, Urine Blood 1+ A, Urine Nitrate Negative, Urine Bilirubin Negative, Urine Urobilinogen 1.0, Ur Leukocyte Esterase Negative, Urine RBC Occasional, Urine WBC 3-5, Ur Squamous Epith Cells 3-5, Urine Bacteria Trace 08/28/24 14:18: VBG pH 7.37, VBG pCO2 77.4 H, VBG pO2 45.6 H, VBG HCO3 43.5 H, VBG Total CO2 45.9 H, VBG O2 Saturation 83.1 H, VBG Base Excess 15.2 H, VBG Lactic Acid 0.7 08/28/24 12:00 08/28/24 12:00 Orders (Tests/Meds): ED MEDICATIONS Discontinued Medications Generic Name Dose Route Start Last Admin Trade Name Marinoq PRN Reason Stop Dose Admin Acetaminophen 1,000 mg 08/28/24 14:24 08/28/24 14:29 Acetaminophen 500mg Tab PO 08/28/24 14:25 1,000 mg ONCE ONE Administration Iopamidol 85 ml 08/28/24 12:46 08/28/24 12:50 Iopamidol-370 (76%);100ml Bottle IV 08/28/24 12:47 85 ml ONCE ONE Administration Sodium Chloride 10 ml 08/28/24 11:42 Sodium Chloride 0.9% 10ml Flush Syringe IV 09/27/24 11:41 NEEDED PRN Maintain IV Site Sodium Chloride 50 ml 08/28/24 12:46 08/28/24 12:50 0.9 % Sodium Chloride 50 Ml Vial IV 08/28/24 12:47 50 ml ONCE ONE Administration Sodium Chloride 10 ml 08/28/24 12:46 08/28/24 12:50 Sodium Chloride 0.9% 10ml Syr (Rad Only) IV 08/28/24 12:47 10 ml ONCE ONE Administration ORDERS Category Date Time Status CT abdomen pelvis w con Stat Cat Scan 08/28/24 11:43 Completed CTA Chest [CT angio chest PE protocol] Stat Cat Scan 08/28/24 11:43 Completed BNP [NT Pro Brain Natriuretic Pep.] Stat Lab 08/28/24 12:00 Completed CBC [Complete Blood Count Auto Diff] Stat Lab 08/28/24 12:00 Completed Comprehensive Metabolic Panel Stat Lab 08/28/24 12:00 Completed Lactate Venous Stat Lab 08/28/24 11:42 Stop Req Lipase Stat Lab 08/28/24 12:00 Completed Magnesium Stat Lab 08/28/24 12:00 Completed PT INR [Prothrombin Time INR] Stat Lab 08/28/24 12:00 Completed PTT [Activated Partial Thrombo Time] Stat Lab 08/28/24 12:00 Completed Trop I [Troponin I] Stat Lab 08/28/24 12:00 Completed Urinalysis and Microscopic Stat Lab 08/28/24 12:25 Completed VBG [Venous Blood Gas] Stat RT 08/28/24 12:00 Completed VBG [Venous Blood Gas] Stat RT 08/28/24 14:18 Completed CA venous doppler LE RT Stat Y 08/28/24 11:42 Completed Medical Decision Narrative: 79-year-old female presents with her family specifically her grandchildren for evaluation of her right leg pain. Patient arrives to the ER in wheelchair on her home O2 of 2-1/2 L nasal cannula. Patient has history of COPD, CHF, CAD. She is slightly hypoxic when we placed her on our stretcher and now her O2 in the low 80s. We placed her on 4 L nasal cannula and her O2 sats up to 94%. Patient is complaining of her right lower leg pain. Patient does also complain of constipation. States that she has had difficulty walking that has gotten worse since she got out of [facility]. Patient otherwise stable vital signs and afebrile. Today workup will be completed including basic labs, lactate, CTA and CT of abdomen and venous Doppler of her right leg. Differential diagnosis includes PE, DVT, weakness, failure to thrive, hypoxia, CHF exacerbation among others. Patient's CO2 on the venous gas was [address] patient on BiPAP for couple hours then repeated the gas and her CO2 was back to her baseline at 77. Patient does have a BiPAP at home per her granddaughter Erika. After discussing with Dr. Banda we discussed with patient family that patient is okay to go home as long as she uses her BiPAP at nighttime. She is also to see Dr. Dumont in follow-up for pain medicine for her back pain and her hip pain. She had negative venous Doppler of her right leg, negative CT scans. Patient's blood pressure has been stable throughout ER visit. Patient's CT reads were read by radiology please see report for full reads. Patient to return home on her baseline oxygen and BiPAP. Discussed with family that she needs to wear her BiPAP at night. Also discussed with patient. Patient is okay for discharge home. <Medardo Banda MD - Last Filed: 08/28/24 19:38> Vital Signs: 08/28/24 11:57 08/28/24 12:00 08/28/24 12:30 Temperature 98.4 F Temperature Source Oral Pulse Rate 71 Pulse Rate [Left Radial] 72 Respiratory Rate 24 25 H 17 Blood Pressure 158/52 H 147/66 H Blood Pressure [Right Arm] 153/59 H Blood Pressure Mean Blood Pressure Mean [Right Arm] 90 02 Sat by Pulse Oximetry 95 95 Oxygen Delivery Method Nasal Cannula Oxygen Flow Rate (LPM) 2 08/28/24 13:12 08/28/24 13:30 08/28/24 14:57 Temperature 98.1 F Temperature Source Pulse Rate 66 63 66 Pulse Rate [Left Radial] Respiratory Rate 18 31 H 20 Blood Pressure 168/65 H 144/60 H 175/64 H Blood Pressure [Right Arm] Blood Pressure Mean 88 Blood Pressure Mean [Right Arm] 02 Sat by Pulse Oximetry 93 L 95 Oxygen Delivery Method BiPAP Room Air Oxygen Flow Rate (LPM) Lab Data Lab Results 08/28/24 12:00: WBC 5.3, RBC 3.51 L, Hgb 9.7 L, Hct 33.8 L, MCV 96.3, MCH 27.6, MCHC 28.7 L, RDW 17.3, Plt Count 168, MPV 10.3, Neut % (Auto) 63.2, Lymph % (Auto) 22.6, [place] % (Auto) 10.4 H, Eos % (Auto) 3.0, Baso % (Auto) 0.6, Neut # (Auto) 3.4, Lymph # (Auto) 1.2, [place] # (Auto) 0.6, Eos # (Auto) 0.2, Baso # (Auto) 0.0, PT 11.4, INR 1.03, APTT 24.8, VBG pH 7.30 L, VBG pCO2 93.4 H, VBG pO2 46.4 H, VBG HCO3 44.9 H, VBG Total CO2 47.8 H, VBG O2 Saturation 80.7 H, VBG Base Excess 15.1 H, VBG Lactic Acid 0.9, Sodium 133 L, Potassium 3.5, Chloride 86 L, Carbon Dioxide 51 H*, Anion Gap -0.5 L, BUN 12, Creatinine 0.70, Estimated Creat Clear 37, Estimated GFR 81, Est GFR ( Amer) 97, Glucose 91, Calcium 9.2, Magnesium 2.0, Total Bilirubin 0.6, AST 30, ALT 20, Alkaline Phosphatase 101, Troponin I 0.03, NT-Pro-B Natriuret Pep 1330 H, Total Protein 6.4, Albumin 3.6, Globulin 2.8, Albumin/Globulin Ratio 1.3, Lipase 38 08/28/24 12:25: Urine Color Yellow, Urine Appearance Clear, Urine pH 6.0, Ur Specific [place] 1.015, Urine Protein Negative, Urine Glucose (UA) 3+, Urine Ketones Trace, Urine Blood 1+ A, Urine Nitrate Negative, Urine Bilirubin Negative, Urine Urobilinogen 1.0, Ur Leukocyte Esterase Negative, Urine RBC Occasional, Urine WBC 3-5, Ur Squamous Epith Cells 3-5, Urine Bacteria Trace 08/28/24 14:18: VBG pH 7.37, VBG pCO2 77.4 H, VBG pO2 45.6 H, VBG HCO3 43.5 H, VBG Total CO2 45.9 H, VBG O2 Saturation 83.1 H, VBG Base Excess 15.2 H, VBG Lactic Acid 0.7 Orders (Tests/Meds): ED MEDICATIONS Discontinued Medications Generic Name Dose Route Start Last Admin Trade Name Yumiko PRN Reason Stop Dose Admin Acetaminophen 1,000 mg 08/28/24 14:24 08/28/24 14:29 Acetaminophen 500mg Tab PO 08/28/24 14:25 1,000 mg ONCE ONE Administration Iopamidol 85 ml 08/28/24 12:46 08/28/24 12:50 Iopamidol-370 (76%);100ml Bottle IV 08/28/24 12:47 85 ml ONCE ONE Administration Sodium Chloride 10 ml 08/28/24 11:42 Sodium Chloride 0.9% 10ml Flush Syringe IV 09/27/24 11:41 NEEDED PRN Maintain IV Site Sodium Chloride 50 ml 08/28/24 12:46 08/28/24 12:50 0.9 % Sodium Chloride 50 Ml Vial IV 08/28/24 12:47 50 ml ONCE ONE Administration Sodium Chloride 10 ml 08/28/24 12:46 08/28/24 12:50 Sodium Chloride 0.9% 10ml Syr (Rad Only) IV 08/28/24 12:47 10 ml ONCE ONE Administration ORDERS Category Date Time Status CT abdomen pelvis w con Stat Cat Scan 08/28/24 11:43 Completed CTA Chest [CT angio chest PE protocol] Stat Cat Scan 08/28/24 11:43 Completed BNP [NT Pro Brain Natriuretic Pep.] Stat Lab 08/28/24 12:00 Completed CBC [Complete Blood Count Auto Diff] Stat Lab 08/28/24 12:00 Completed Comprehensive Metabolic Panel Stat Lab 08/28/24 12:00 Completed Lactate Venous Stat Lab 08/28/24 11:42 Stop Req Lipase Stat Lab 08/28/24 12:00 Completed Magnesium Stat Lab 08/28/24 12:00 Completed PT INR [Prothrombin Time INR] Stat Lab 08/28/24 12:00 Completed PTT [Activated Partial Thrombo Time] Stat Lab 08/28/24 12:00 Completed Trop I [Troponin I] Stat Lab 08/28/24 12:00 Completed Urinalysis and Microscopic Stat Lab 08/28/24 12:25 Completed VBG [Venous Blood Gas] Stat RT 08/28/24 12:00 Completed VBG [Venous Blood Gas] Stat RT 08/28/24 14:18 Completed CA venous doppler LE RT Stat Y 08/28/24 11:42 Completed ECG Data Tracing #1: I reviewed this ECG and interpreted as documented below: Normal sinus rhythm. Right bundle branch block. No ST elevation or depression. QTc normal at 360 Medical Decision Narrative: 79-year-old female presents with her family specifically her grandchildren for evaluation of her right leg pain. Patient arrives to the ER in wheelchair on her home O2 of 2-1/2 L nasal cannula. Patient has history of COPD, CHF, CAD. She is slightly hypoxic when we placed her on our stretcher and now her O2 in the low 80s. We placed her on 4 L nasal cannula and her O2 sats up to 94%. Patient is complaining of her right lower leg pain. Patient does also complain of constipation. States that she has had difficulty walking that has gotten worse since she got out of [facility]. Patient otherwise stable vital signs and afebrile. Today workup will be completed including basic labs, lactate, CTA and CT of abdomen and venous Doppler of her right leg. Differential diagnosis includes PE, DVT, weakness, failure to thrive, hypoxia, CHF exacerbation among others. Patient's CO2 on the venous gas was 93 initially so [address] will place patient on BiPAP for couple hours then repeated the gas and her CO2 was back to her baseline at 77. Patient does have a BiPAP at home per her granddaughter Erika. After discussing with Dr. Banda we discussed with patient family that patient is okay to go home as long as she uses her BiPAP at nighttime. She is also to see Dr. Dumont in follow-up for pain medicine for her back pain and her hip pain. She had negative venous Doppler of her right leg, negative CT scans. Patient's blood pressure has been stable throughout ER visit. Patient's CT reads were read by radiology please see report for full reads. Patient to return home on her baseline oxygen and BiPAP. Discussed with family that she needs to wear her BiPAP at night. Also discussed with patient. Patient is okay for discharge home. I was consulted by the CARLIE, and we discussed the complexity of the problems being addressed. I approve the treatment and management plan for this patient's care in the emergency department, thus performing a substantive portion of the medical decision making. On review of patient's chart, she has waxing and waning pCO2 levels on previous VBGs, however her baseline is between 50-80. given her pCO2 has improved to baseline, she is on her baseline oxygen requirements, and is mentating appropriately, it is felt that she does not require admission as her workup has otherwise been negative. She has BiPAP at home but reportedly has not been using it but needs to use it at home. Medardo Banda MD Critical Care <Ann-Marie Holt (ED), MANAGER SOFTWARE - Last Filed: 08/28/24 15:48> Critical Care Time Critical Care Time: No
--- NOTE | 2024-08-28 12:07 | PC.NURSE ---
collection technician at bedside
[2024-08-28 12:09] LABS: Hematocrit 33.8 % (37.0-47.0); Hemoglobin 9.7 g/dL (12.2-16.2); Immature Granulocytes % 0.2 %; Mean Corpuscular HGB Conc 28.7 g/dL (31.8-35.4); Mean Corpuscular Hemoglobin 27.6 pg (27.0-31.2); Mean Corpuscular Volume 96.3 fl (81-99); Nucleated Red Blood Cells % 0 %; Platelet Count 168 K/mm3 (142-424); Red Blood Count 3.51 M/mm3 (4.20-5.40); Red Cell Distribution Width-SD 60.9 fL; White Blood Count 5.3 K/mm3 (4.8-10.8)
--- NOTE | 2024-08-28 12:12 | PC.NURSE ---
per battery technician doppler was negative
[2024-08-28 12:15] LABS: VBG PH 7.30 mmol/L (7.31-7.41)
--- NOTE | 2024-08-28 12:15 | ECG_ITS ---
APPROVED REPORT Exam: Resting ECG HR:68 bpm ECG Measurements Heart Rate 68 AXES KS 195 P 66 QRSd 111 QRS 50 QT 344 T 46 QTc 360 Conclusion SINUS RHYTHM INCOMPLETE RIGHT BUNDLE BRANCH BLOCK [90+ ms QRS DURATION, TERMINAL R IN V1/V2, 40+ ms S IN I/aVL/V4/V5/V6] NONSPECIFIC T-WAVE ABNORMALITY BORDERLINE ECG UNCONFIRMED REPORT Normal sinus rhythm. T wave inversion in lead III but nonspecific. No ST elevation or depression Electronically signed by : ADONIS CAGE, 08/29/2024 07:35:22
[2024-08-28 12:16] LABS: VBG HCO3 44.9 mmol/L (23-30); VBG PCO2 93.4 mmol/L (35-51); VBG PO2 46.4 mmol/L (28-40)
[2024-08-28 12:17] LABS: Lactate Venous 0.9 mmol/L (0.4-2.0)
[2024-08-28 12:22] LABS: Albumin Level 3.6 g/dl (3.5-5.0)
[2024-08-28 12:23] LABS: Chloride 86 mmol/L (98-107); Potassium 3.5 mmoL/L (3.5-5.1); Sodium 133 mmol/L (136-145)
[2024-08-28 12:25] LABS: Alanine Aminotransferase 20 U/L (12-78); Aspartate Amino Transferase 30 U/L (14-36); Blood Urea Nitrogen 12 mg/dl (7-17); Creatinine Clearance Estimated 37 mL/min (50-200); Creatinine,Serum 0.70 mg/dl (0.52-1.04); Estimated Glomerular Filt Rate 81 ml/min (>60); GFR (African American) 97 ML/MIN (>60)
[2024-08-28 12:26] LABS: Albumin/Globulin Ratio 1.3 (1.1-1.8); Alkaline Phosphatase 101 U/L (38-126); Bilirubin,Total 0.6 mg/dl (0.2-1.3); Calcium 9.2 mg/dl (8.4-10.2); Globulin 2.8 g/dL (1.3-3.2); Glucose 91 mg/dl (74-100); Lipase 38 U/L (23-300); Magnesium 2.0 mg/dl (1.6-2.3); Total Protein,Serum 6.4 g/dl (6.3-8.2)
[2024-08-28 12:30] LABS: Microscopic, Urine URINE MICROSCOPIC (MICROSCOPIC)
[2024-08-28 12:30] LABS: NT Pro Brain Natriuretic Pep. 1330 pg/mL (0-450)
[2024-08-28 12:33] LABS: Troponin I 0.03 ng/ml (0.00-0.034)
[2024-08-28 12:36] LABS: Anion Gap -0.5 mEq/L (5-15)
[2024-08-28 12:38] LABS: Carbon Dioxide 51 mmol/L (22.0-30.0)
--- NOTE | 2024-08-28 12:38 | PC.NURSE ---
PT TO CT
[2024-08-28] MEDS: 0.9 % SODIUM CHLORIDE 50 ML VIAL IV (12:50)
[2024-08-28] MEDS: SODIUM CHLORIDE 0.9% 10ML SYR (RAD ONLY) 10 ML IV (12:50)
[2024-08-28] MEDS: IOPAMIDOL-370 (76%);100ML BOTTLE 85 ML IV (12:50)
--- NOTE | 2024-08-28 12:51 | PC.NURSE ---
PT RETURNED FROM CT
--- NOTE | 2024-08-28 12:51 | PC.NURSE ---
RESPIRATORY NOTIFIED OF BI-PAP ORDER
--- NOTE | 2024-08-28 12:59 | PC.NURSE ---
RESPIRATORY AT BEDSIDE
[2024-08-28 13:13] LABS: Bilirubin,Urine Negative (Negative); Color,Urine YELLOW (Yellow); Glucose,Urine (UA) 3+ (Negative); Ketones,Urine TRACE (Negative); Leukocyte Esterase,Urine Negative (Negative); PH,Urine 6.0 (5.0-8.5); Protein,Urine Negative (Negative); Specific Gravity, Urine 1.015 (1.005-1.030); Urobilinogen,Urine 1.0 EU/dl (0.2)
[2024-08-28 13:23] LABS: Bacteria,Urine Trace /lpf; RBC,Urine Occasional #/hpf (0-3)
[2024-08-28 13:52] LABS: Activated Partial Thrombo Time 24.8 seconds (22.8-30.6); INR 1.03 (0.9-1.1); Prothrombin Time 11.4 seconds (10.1-12.5)
[2024-08-28] MEDS: ACETAMINOPHEN 500MG TAB 1000 MG PO (14:29)
[2024-08-28 14:30] LABS: VBG PH 7.37 mmol/L (7.31-7.41)
[2024-08-28 14:32] LABS: VBG PCO2 77.4 mmol/L (35-51); VBG PO2 45.6 mmol/L (28-40)
[2024-08-28 14:33] LABS: Lactate Venous 0.7 mmol/L (0.4-2.0); VBG HCO3 43.5 mmol/L (23-30)
== END 2024-08-28 15:24 | disposition home or self-care (01) ==
PROVIDERS: Nurse Practitioner; Emergency Provider Student in an Organized Health Care Education/Training Program
DX: M25.569 Pain in unspecified knee (principal); J96.02 Acute respiratory failure with hypercapnia; E87.29 Other acidosis; E66.9 Obesity, unspecified; M54.50 Low back pain, unspecified; Z87.891 Personal history of nicotine dependence
CPT/HCPCS: 71275; 74177; 80053; 81001; 82803; 83690; 83735; 83880; 84484; 85025; 85610; 85730; 93005; 93971; 99285; Q9967

== ENCOUNTER 2024-09-11 19:58 | Emergency (ER) | payer MEDICARE, SELFPAY ==
--- OUTSIDE RECORDS SUMMARY | 2024-08-21 14:15 | XMS_ITS | Encounter Summary ---
Author Organization [facility] Address [address] [place] [address] Care Team Providers Care Technology Assistant Name Role Phone Earl Dumont MD Primary Care Provider [phone] Reason for Visit * Reason Comments Medicare Wellness-subsequent SMW Encounter Details Date Type Department Care Team (Late st Contact Info) Description 08/21/2024 2:15 PM EDT Office Visit [facility] [address] [place] [address] Earl Dumont MD [address] [place] [address] Medicare annual wellness visit, subsequent [...] place to sleep or slept in a nursing home (including now)? No 10/01/2021 PHQ-2 Answer Date [...] BY MOUTH EVERY 6 HOURS NEEDED FOR [id number] tablet 1 ipratropium-albuterol (DUO-NEB) 0.5-2.5 mg/3 ml [...] Pneumococcal Vaccine 50+ Completed DXA SCAN Discontinued [facility] Preventative Services Quick Reference Risk Factors Identified [...] 3 days Just got home this AM! Patito Garcia is here for follow-up of hypertension [...] pain, call back INB [facility] BP stable, refilled all documented in this encounter Plan of Treatment Upcoming Encounters Date Type Department Care Team (Late st Contact Info) Description 02/19/2025 3:00 PM EST Office Visit [facility] [address] [facility] [place] [address] Earl Dumont MD [address] [place] [address] documented as of this encounter [...] documented as of this encounter Care Teams Technology Assistant Relationship Specialty Start Date End Date Earl Dumont MD [address] [place] [address] PCP - General Family Medicine 01/23/20 documented as of this encounter
--- OUTSIDE RECORDS SUMMARY | 2024-08-30 15:00 | XMS_ITS | Encounter Summary ---
Author Organization [facility] Address [address] [place] [address] Care Team Providers Care Crisis Worker Name Role Phone Earl Dumont MD Primary Care Provider [phone] Reason for Visit * Reason Comments Muscle Pain Went to [facility] a wk ago, thinks she Pulled muscle. Had a CAT scan and Hip Pain Lft hip Encounter Details Date Type Department Care Team (Late st Contact Info) Description 08/30/2024 3:00 PM EDT Office Visit [facility] [address] [place] [address] Earl Dumont MD [address] [place] [address] Nausea and vomiting, unspecified vomiting type (Primary Dx); Right leg pain; Pain of right lower extremity; Chronic obstructive pulmonary disease with (acute) lower respiratory infection; CO2 retention Social History Tobacco Use Types Packs/Day Years [...] place to sleep or slept in a intermediate (including now)? No 10/01/2021 PHQ-2 Answer Date [...] Sign Reading Time Taken Comments Blood Pressure 122/86 08/30/2024 2:47 PM EDT Pulse 66 08/30/2024 2:47 PM EDT Temperature - - Respiratory Rate 18 08/30/2024 2:47 PM EDT Oxygen Saturation 96% 08/30/2024 2:47 PM EDT Inhaled Oxygen Concentration - - Weight 105 kg (232 lb) 08/30/2024 2:47 PM EDT Height 160 cm (5' 2.99 ) 08/30/2024 2:47 PM EDT Body Mass Index 41.11 08/30/2024 2:47 PM EDT documented in this encounter Progress Notes * Earl Dumont MD - 08/30/2024 3:00 PM EDT Subjective Patito Garcia is a 79 y.o. female. History of Present Illness She has COPD, is on chronic oxygen, She has had CO2 retention in past She is on advair Has an appointment with her pulm next week She comes in with acute N/V She has had leg pain This does hurt They tried a little gel but it did not help much Her hip is hurting as well The following portions of the patient's history were reviewed and updated as appropriate: allergies, current medications, past family history, past medical history, past social history, past surgicalhistory, and problem list. Review of Systems Objective Physical Exam Vitals and nursing note reviewed. Constitutional: General: She is not in acute distress. Appearance: Normal appearance. She is well-developed. Comments: Burping and holding emesis basin to mouth Cardiovascular: Rate and Rhythm: Normal rate and regular rhythm. Heart sounds: Normal heart sounds. Pulmonary: Effort: Pulmonary effort is normal. Breath sounds: Normal breath sounds. Musculoskeletal: Comments: In wheelchair Neurological: Mental Status: She is alert and oriented to person, place, and time. Psychiatric: Mood and Affect: Mood normal. Behavior: Behavior normal. Assessment & Plan Diagnoses and all orders for this visit: 1. Nausea and vomiting, unspecified vomiting type (Primary) - ondansetron (ZOFRAN) injection 4 mg 2. Right leg pain - traMADol (ULTRAM) 50 MG tablet; 1 PO BID PRN leg pain Dispense: 60 tablet; Refill: 0 3. Pain of right lower extremity - traMADol (ULTRAM) 50 MG tablet; 1 PO BID PRN leg pain Dispense: 60 tablet; Refill: 0 4. Chronic obstructive pulmonary disease with (acute) lower respiratory infection 5. CO2 retention Other orders - amiodarone (PACERONE) 200 MG tablet; Take 2 tablets by mouth Every 12 (Twelve) Hours. Dispense: 120 tablet; Refill: 5 - dapagliflozin (Farxiga) 5 MG tablet tablet; Take 1 tablet by mouth Daily. Dispense: 90 tablet; Refill: 1 Samples brestri to try to help her breathing. She has been trying to use her Bipap but this has been hard. I fear she retains CO2 which leads to confsuion and she already has dementia Will use PRN tramadol for leg pain, monitor usage. documented in this encounter Plan of Treatment Upcoming Encounters Date Type Department Care Team (Late st Contact Info) Description 02/19/2025 3:00 PM EST Office Visit [facility] [address] [place] [phone] Earl Dumont MD [address] [place] [address] documented as of this encounter Visit Diagnoses Diagnosis Nausea and vomiting, unspecified vomiting type- Primary Right leg pain Pain in soft tissues of limb Pain of right lower extremity Chronic obstructive pulmonary disease with (acute) lower respiratory infection CO2 retention Acidosis documented in this encounter Administered Medications Inactive Administered Medications - up to 3 most recent administrations Medication Order MAR Action Action Date Dose Rate Site ondansetron (ZOFRAN) injection 4 mg 4 mg, Intramuscular, Once, On Wed08/30/24 at 1459, For 1 dose, If multiple N/V medications ordered, use in the following order: Ondansetron, Prochlorperazine, Promethazine. Use PO unless patient refuses or patient unable to swallow. Indications:Naus ea and vomiting, unspecified vomiting type Given 08/30/2024 3:38 PM EDT 4 mg Right Ventrogluteal documented in this encounter Additional Health Concerns Assessment Noted Time PHQ-2 Depression Total Score: 2 07/14/19 24 4:30 PM EDT documented as of this encounter Care Teams Crisis Worker Relationship Specialty Start Date End Date Earl Dumont MD [address] [place] [address] PCP - General Family Medicine 01/23/20 documented as of this encounter
[2024-09-11 20:03] VITALS: BP 161/57; PULSE 70; RESP 20; TEMP 36.7; O2SAT 91; BMI 36.0
--- NOTE | 2024-09-11 20:06 | ECG_ITS ---
APPROVED REPORT Exam: Resting ECG HR:67 bpm ECG Measurements Heart Rate [address] 172 P 88 QRSd 112 QRS 91 QT 403 T 54 QTc 419 Conclusion SINUS RHYTHM BORDERLINE RIGHT AXIS DEVIATION [QRS AXIS > 90] INCOMPLETE RIGHT BUNDLE BRANCH BLOCK [90+ ms QRS DURATION, TERMINAL R IN V1/V2, 40+ ms S IN I/aVL/V4/V5/V6] NONSPECIFIC T-WAVE ABNORMALITY BORDERLINE ECG UNCONFIRMED REPORT Electronically signed by : Robert Garcia, 09/11/2024 23:21:32
--- OUTSIDE RECORDS SUMMARY | 2024-09-11 20:06 | XMS_ITS | Encounter Summary ---
[facility] Organization [facility] Address [address] [place] [address] Care Team Providers Care Return Agent Name Role Phone Earl Dumont MD Primary Care Provider [phone] Reason for Visit * Reason Comments Med Refill Encounter Details Date Type Department Care Team (Late st Contact Info) Description 07/17/2024 Refill [facility] [address] [facility] [place] [address] Earl Dumont MD [address] [facility] [place] [address] Generalized anxiety disorder Social History [...] place to sleep or slept in a correction (including now)? No 10/01/2021 PHQ-2 Answer Date [...] CENTER [facility] [address] [place] [address] Earl Dumont MD [address] [place] [address] documented as of this encounter Visit Diagnoses Diagnosis Generalized anxiety disorder documented in this encounter Additional Health Concerns Assessment Noted Time PHQ-2 Depression Total Score: 2 07/14/19 24 4:30 PM EDT documented as of this encounter Care Teams Return Agent Relationship Specialty Start Date End Date Earl Dumont MD [address] [place] [address] PCP - General Family Medicine 01/23/20 documented as of this encounter
--- OUTSIDE RECORDS SUMMARY | 2024-09-11 20:06 | XMS_ITS | Encounter Summary ---
Author Organization [facility] Address [address] [place] [address] Care Team Providers Care Lieutenant Shift Supervisor Name Role Phone Earl Dumont MD Primary Care Provider [phone] Reason for Visit * Reason Onset Date Comments Med Refill 07/17/2024 Encounter Details Date Type Department Care Team (Late st Contact Info) Description 07/17/2024 Refill [facility] [address] [place] [address] Earl Dumont MD [address] [place] [address] Generalized anxiety disorder Social History [...] place to sleep or slept in a detention (including now)? No 10/01/2021 PHQ-2 Answer Date [...] Garcia Relationship: Self Best call back number: [phone] Requested Prescriptions: Requested Prescriptions Pending Prescriptions Disp Refills hydrOXYzine (ATARAX) 50 MG tablet 20 tablet 1 Sig: Take 0.5-1 tablets by mouth Every 6 (Six) Hours As Needed for Anxiety. Pharmacy where request should be sent: [id number] [place] - [address] [address] [address] [phone] [facility] [phone] FX Last office visit with prescribing clinician: [...] [facility] [address] [facility] [place] [phone] Earl Dumont MD [address] [facility] [place] [address] documented as of this encounter Visit Diagnoses Diagnosis Generalized anxiety disorder documented in this encounter Additional Health Concerns Assessment Noted Time PHQ-2 Depression Total Score: 2 07/14/19 24 4:30 PM EDT documented as of this encounter Care Teams Lieutenant Shift Supervisor Relationship Specialty Start Date End Date Earl Dumont MD [address] [place] [address] PCP - General Family Medicine 01/23/20 documented as of this encounter
--- OUTSIDE RECORDS SUMMARY | 2024-09-11 20:06 | XMS_ITS | Encounter Summary ---
[facility] Address [address] [place] [address] Care Team Providers Care Sheet Metal Worker Supervisor Name Role Phone Earl Dumont MD Primary Care Provider [phone] Reason for Visit * Reason Onset Date Comments Advice Only 07/06/2024 Encounter Details Date Type Department Care Team (Late st Contact Info) Description 07/06/2024 Telephone [facility] [address] [facility] [place] [address] Earl Dumont MD [address] [facility] [place] [address] Advice Only Social History Tobacco [...] place to sleep or slept in a alf (including now)? No 10/01/2021 PHQ-2 Answer Date [...] Description 02/19/2025 3:00 PM EST Office Visit [facility] [address] [place] [address] Earl Dumont MD [address] [place] [address] documented as of this encounter Visit Diagnoses Not on filedocumented in this encounter Additional Health Concerns Assessment Noted Time PHQ-2 Depression Total Score: 2 07/14/19 24 4:30 PM EDT documented as of this encounter Care Teams Sheet Metal Worker Supervisor Relationship Specialty Start Date End Date Earl Dumont MD [address] [place] [address] PCP - General Family Medicine 01/23/20 documented as of this encounter
--- OUTSIDE RECORDS SUMMARY | 2024-09-11 20:07 | XMS_ITS | Encounter Summary ---
[facility] Address [address] [place] [address] Care Team Providers Care Special Education Inclusion Teacher Name Role Phone Earl Gomez MD Primary Care Provider [phone] Reason for Referral * Home Health (Routine) - Closed Specialty Diagnoses / Procedures Referred By Demario t Referred To Contact Home Health Services Diagnoses Chronic heart failure with preserved ejection fraction Status post total left knee replacement COPD with exacerbation Chronic back pain, unspecified back location, unspecified back pain laterality Procedures FL OFFICE/OUTPATIENT NEW MODERATE MDM 45 MINUTES Earl Gomez MD [address] [facility] [place] [address] Phone: tel: fax: [facility] [place] [address] [address] [place] [address] Phone: tel: fax: Referral ID Status Reason Start Date Expiration Date V isits Requested Visits Authorized [id number] Closed Specialty Services Required 08/28/2024 11/27/[phone] Reason for Visit * Reason Onset Date Comments HOME HEALTH REFERRAL NEEDED 08/28/2024 Encounter Details Date Type Department Care Team (Late st Contact Info) Description 08/28/2024 Telephone [facility] [address] [facility] [place] [address] Earl Gomez MD [address] [facility] [place] [address] HOME HEALTH REFERRAL NEEDED Social History Tobacco Use Types Packs/Day Years [...] in a penitentiary (including now)? No 10/01/2021 PHQ-2 Answer Date [...] Miscellaneous Notes * Telephone Encounter - Earl Gomez MD - 08/28/2024 5:18 PM EDT Amedysis referral placed * Telephone Encounter - Alexandra Harding RegSched Rep - 08/28/2024 11:45 AM EDT PER KIRIT WITH [facility] STATED PATIENT WAS D/C FROM [facility] ON 08/21 AND WAS SENT TO [facility] AND SHE WANTS TO CONTINUE WITH [facility]. KIRIT IS NEEDING A REFERRAL FROM DR GOMEZ.SHE IS NEEDING PT AND OT documented in this encounter Plan of Treatment Upcoming Encounters Date Type Department Care Team (Late st Contact Info) Description 02/19/2025 3:00 PM EST Office Visit [facility] [address] [facility] [place] [address] Earl Gomez MD [address] [facility] [place] [address] documented as of this encounter Visit Diagnoses Diagnosis Chronic heart failure with preserved ejection fraction- Primary Status post total left knee replacement COPD with exacerbation Chronic back pain, unspecified back location, unspecified back pain laterality documented in this encounter Additional Health Concerns Assessment Noted Time PHQ-2 Depression Total Score: 2 07/14/19 24 4:30 PM EDT documented as of this encounter Care Teams Special Education Inclusion Teacher Relationship Specialty Start Date End Date Earl Gomez MD [address] [place] [address] PCP - General Family Medicine 01/23/20 documented as of this encounter
--- OUTSIDE RECORDS SUMMARY | 2024-09-11 20:07 | XMS_ITS | Encounter Summary ---
Author Organization [facility] Address [address] [place] [address] Care Team Providers Care Manager Embalmer Funeral Director Name Role Phone Earl Dumont MD Primary Care Provider [phone] Encounter Details Date Type Department Care Team (Latest Contact Info) Description 08/30/2024 Travel Social History Tobacco Use Types Packs/Day [...] 02/19/2025 3:00 PM EST Office Visit [facility] [address] [facility] [place] [address] Earl Dumont MD [address] [place] [address] documented as of this encounter Visit Diagnoses Not on filedocumented in this encounter Additional Health Concerns Assessment Noted Time PHQ-2 Depression Total Score: 2 07/14/19 24 4:30 PM EDT documented as of this encounter Care Teams Manager Embalmer Funeral Director Relationship Specialty Start Date End Date Earl Dumont MD [address] [place] [address] PCP - General Family Medicine 01/23/20 documented as of this encounter
--- OUTSIDE RECORDS SUMMARY | 2024-09-11 20:07 | XMS_ITS | Encounter Summary ---
Author Organization [facility] Address [address] [place] [address] Care Team Providers Care Advocacy Director Name Role Phone Earl Dumont MD Primary Care Provider [phone] Reason for Visit * Reason Onset Date Comments Advice Only 08/04/2024 Encounter Details Date Type Department Care Team (Late st Contact Info) Description 08/04/2024 Telephone [facility] [address] [facility] [place] [address] Earl Dumont MD [address] [facility] [place] [address] Advice Only Social History Tobacco [...] SHAKILA Relationship: Grandchild Best call back number: [phone] What is the best time to reach [...] Description 02/19/2025 3:00 PM EST Office Visit [facility] [address] [place] [phone] Earl Dumont MD [address] [facility] [place] [place] [address] documented as of this encounter Visit Diagnoses Not on filedocumented in this encounter Additional Health Concerns Assessment Noted Time PHQ-2 Depression Total Score: 2 07/14/19 24 4:30 PM EDT documented as of this encounter Care Teams Advocacy Director Relationship Specialty Start Date End Date Earl [place]ont MD [address] [place] [address] PCP - General Family Medicine 01/23/20 documented as of this encounter
--- OUTSIDE RECORDS SUMMARY | 2024-09-11 20:07 | XMS_ITS | Encounter Summary ---
Author Organization [facility] Address [address] [place] [address] Care Team Providers Care Loft Patternmaker Name Role Phone Earl Dumont MD Primary Care Provider Reason for Visit * Reason Onset Date Comments Advice Only 07/28/2024 Encounter Details Date Type Department Care Team (Late st Contact Info) Description 07/28/2024 Telephone [facility] [address] [facility] [place] [address] Earl Dumont MD [address] [facility] [place] [address] Advice Only Social History Tobacco [...] Description 02/19/2025 3:00 PM EST Office Visit [facility] [address] [place] [address] Earl Dumont MD [address] [place] [address] documented as of this encounter Visit Diagnoses Not on filedocumented in this encounter Additional Health Concerns Assessment Noted Time PHQ-2 Depression Total Score: 2 07/14/19 24 4:30 PM EDT documented as of this encounter Care Teams Loft Patternmaker Relationship Specialty Start Date End Date Earl Dumont MD [address] [place] [address] PCP - General Family Medicine 01/23/20 documented as of this encounter
--- OUTSIDE RECORDS SUMMARY | 2024-09-11 20:07 | XMS_ITS | Encounter Summary ---
Author Organization [facility] Address [address] [place] [address] Care Team Providers Care Production Planner Scheduler Name Role Phone Earl Dumont MD Primary Care Provider [phone] Reason for Visit * Reason Comments Med Refill Encounter Details Date Type Department Care Team (Late st Contact Info) Description 04/10/2022 Refill [facility] [address] [place] [address] Earl Dumont MD [address] [place] [address] Essential hypertension Social History Tobacco [...] place to sleep or slept in a mcc (including now)? No 10/01/2021 Comments No Sex [...] Description 02/19/2025 3:00 PM EST Office Visit [facility] [address] [place] [address] Earl Dumont MD [address] [place] [address] documented as of this encounter Visit Diagnoses Diagnosis Essential hypertension Unspecified essential hypertension documented in this encounter Additional Health Concerns Assessment Noted Time PHQ-2 Depression Total Score: 1 04/26/19 22 2:42 PM EDT documented as of this encounter Care Teams Production Planner Scheduler Relationship Specialty Start Date End Date Earl Dumont MD [address] [place] [address] PCP - General Family Medicine 01/23/20 documented as of this encounter
--- OUTSIDE RECORDS SUMMARY | 2024-09-11 20:07 | XMS_ITS | Encounter Summary ---
Author Organization [facility] Address [address] [place] [address] Care Team Providers Care Customer Service Representative Teller Name Role Phone Earl Dumont MD Primary Care Provider [phone] Reason for Visit * Reason Onset Date Comments CALLBACK 08/25/2024 Encounter Details Date Type Department Care Team (Late st Contact Info) Description 08/25/2024 Telephone [facility] [address] [facility] [address] Earl Dumont MD [address] [facility] [address] CALLBACK Social History Tobacco Use [...] Garcia Relationship: Self Best call back number: [phone] What was the call regarding: PATIENT STATES SHE IS STILL EXPERIENCING LEG PAIN, WEAKNESS, AND SHAKING. SHE WOULD LIKE A CALL BACK TO DISCUSS THIS AND SEE WHAT HER NEXT STEPS SHOULD BE. documented in this encounter Plan of Treatment Upcoming Encounters Date Type Department Care Team (Late st Contact Info) Description 02/19/2025 3:00 PM EST Office Visit [facility] [address] [place] [phone] Earl Dumont MD [address] [place] [address] documented as of this encounter Visit Diagnoses Not on filedocumented in this encounter Additional Health Concerns Assessment Noted Time PHQ-2 Depression Total Score: 2 07/14/19 24 4:30 PM EDT documented as of this encounter Care Teams Customer Service Representative Teller Relationship Specialty Start Date End Date Earl Dumont MD [address] [place] [address] PCP - General Family Medicine 01/23/20 documented as of this encounter
--- OUTSIDE RECORDS SUMMARY | 2024-09-11 20:07 | XMS_ITS | Clinical Summary ---
Author Organization [facility] Address [address] [place] [address] Care Team Providers Care Watch Crystal Edge Grinder Name Role Phone Earl Dumont MD Primary Care Provider [phone] Allergies Active Allergy Reactions Criticality Noted Date [...] FOR ANXIETY 20 tablet 1 025 Active amLODIPine (NORVASC) 5 MG tabletIndications [...] (Two) Times a Day. 60 tablet 3 Active Diclofenac Sodium (VOLTAREN) 1 % gel gelIndications:Ri ght leg pain Apply 4 g topically to the appropriate area as directed 3 (Three) Times a Day. 50 g 1 025 Active clopidogrel (PLAVIX) 75 MG tablet TAKE ONE TABLET BY MOUTH EVERY DAY 30 tablet Active Farxiga 10 MG tablet TAKE ONE TABLET BY MOUTH EVERY DAY 30 tablet 025 Active amiodarone (PACERONE) 200 MG tablet Take 2 tablets by mouth Every 12 (Twelve) Hours. 120 tablet 5 Active dapagliflozin (Farxiga) 5 MG tablet tablet Take 1 tablet by mouth Daily. 90 tablet 1 Active traMADol (ULTRAM) 50 MG tabletIndications :Right leg pain,Pain of right lower extremity 1 PO BID PRN leg pain 60 tablet 025 Active apixaban (ELIQUIS) 5 MG tablet [...] tablet by mouth Daily. 90 tablet 1 2024 Discontinued(R eorder) atenolol (TENORMIN) 25 MG tabletIndications :Essential hypertension Take 1 tablet by mouth Daily. 90 tablet 1 2024 Discontinued(R eorder) atorvastatin (Lipitor) 40 MG tabletIndications :Hypercholesterol emia Take 1 tablet by mouth Daily. 90 tablet 1 2024 Discontinued(R eorder) donepezil (ARICEPT) 10 MG tabletIndications :Memory change Take 1 tablet by mouth Daily. 90 tablet 1 2024 Discontinued(R eorder) furosemide (LASIX) 40 MG tabletIndications :Lower extremity edema Take 1 tablet by mouth Every Morning. 90 tablet 1 2024 Discontinued(R eorder) alendronate (FOSAMAX) 70 MG [...] Day. 180 tablet 1 2024 Discontinued(R eorder) amiodarone (PACERONE) 200 MG tablet Take 2 tablets by mouth Every 12 (Twelve) Hours. 025 2024 Discontinued(R eorder) Diclofenac Sodium (VOLTAREN) 1 % gel gelIndications:Ri ght leg pain Apply 4 g topically to the appropriate area as directed 3 (Three) Times a Day. 50 g 1 025 2024 Discontinued(R eorder) Hospital, Clinic, or Other Facility Administered Medication Ordered Dose Route Frequency Start Date End Date Status ondansetron (ZOFRAN) injection 4 mgIndications:Nausea and vomiting, unspecified vomiting type 4 mg IM Once 08/30/2024 08/30/2024 Ended Active Problems Problem Noted Date Diagnosed Date (HFpEF) heart failure with preserved ejection fr action 03/07/2024 Angina pectoris 03/07/2024 CAD (coronary artery disease) 03/07/2024 Chronic obstructive pulmonar y disease with (acute) lower respiratory infection 02/12/2024 Oxygen dependent 10/04/2023 Nodule of right lung 10/02/2022 Diastolic dysfunction with chronic heart failure 04/29/2022 Arthralgia of both knees 09/12/2021 Status post total left knee replacement 08/29/19 22 Panlobular emphysema 04/24/2020 Memory change 02/23/2020 Generalized anxiety disorder 01/03/2020 Essential hypertension 08/22/2019 Hypercholesterolemia 08/22/2019 Acquired hypothyroidism 08/22/2019 Recurrent major depressive disorder, in full rem ission 08/22/2019 Primary insomnia 08/22/2019 GERD (gastroesophageal reflux disease) 0 Age-related osteoporosis wit hout current pathological fracture 08/22/2019 Resolved Problems Problem Noted Date Diagnosed Date Resolved Date AMS (altered mental status) 03/07/2024 08/30/2024 Arthritis of left knee 08/28/202107/01 Encounters Date Type Department Care Team Description 08/30/2024 3:00 PM EDT Office Visit [facility] [address] [place] [address] Earl Dumont MD Nausea and vomiting, unspecified vomiting type (Primary Dx); Right leg pain; Pain of right lower extremity; Chronic obstructive pulmonary disease with (acute) lower respiratory infection; CO2 retention 08/30/2024 Travel 08/29/2024 Refill [facility] [address] [place] [place] [address] Earl Dumont MD 08/28/2024 Telephone [facility] [address] [place] [address] Earl Dumont MD HOME HEALTH REFERRAL NEEDED 08/25/2024 Telephone [facility] [address] [facility] [place] [place] [address] Earl Dumont MD CALLBACK 08/22/2024 Refill [facility] [address] [place] [address] Earl Dumont MD Right leg pain 08/21/2024 2:15 PM EDT Office Visit [facility] [address] [facility] [place] [address] Earl Dumont MD Medicare annual wellness visit, subsequent (Primary Dx); Right leg pain; Essential hypertension; Diastolic dysfunction with chronic heart failure; Acquired hypothyroidism; Age-related osteoporosis without current pathological fracture; Generalized anxiety disorder; Recurrent major depressive disorder, in full remission; History of pulmonary embolism; Multiple subsegmental pulmonary emboli without acute cor pulmonale; Hypercholesterolemia; Lower extremity edema; Memory change 08/21/2024 Travel 08/04/2024 [facility] [address] [facility] [place] [address] Earl Dumont MD Advice Only 07/28/2024 [facility] [address] [facility] [place] [address] Earl Dumont MD Advice Only 07/17/2024 Refill [facility] [address] [facility] [place] [address] Earl Dumont MD Generalized anxiety disorder 07/17/2024 Refill [facility] [address] [facility] [place] [address] Earl Dumont MD Generalized anxiety disorder 07/07/2024 [facility] [address] [facility] [place] [address] Earl Dumont MD OT 07/06/2024 [facility] [address] [facility] [place] [address] Earl Dumont MD Advice Only 07/05/2024 [facility] [address] [facility] [place] [address] Earl Dumont MD ORDER REQUEST 07/05/2024 [facility] [address] [facility] [place] [address] Earl Dumont MD New Med Request 07/05/2024 [facility] [address] [facility] [place] [address] Earl Dumont MD MEDICATION REQUEST 06/30/2024 [facility] [address] [facility] [place] [address] Earl Dumont MD REQUEST CALL BACK FROM NURSE 06/26/2024 12:30 PM EDT Office Visit [facility] [address] [facility] [place] [address] Earl Dumont MD Chronic idiopathic constipation (Primary [...] remission; Primary insomnia 06/26/2024 Travel 06/21/2024 Refill [facility] [address] [place] [address] Eral Dumont MD Memory change from Last 3 Months Immunizations Immunization Administration Dates Next Due COVID-19 (MODERNA) 1st,2nd,3rd Dose Monovalent 0 04/17/2020,03/20/2020 Flu Vaccine Quad PF >36MO 12/13/2015 Fluzone High-Dose 65+yrs 02/03/2021 Influenza Seasonal Injectable 10/27/2010 Influenza, Unspecified 10/03/2019 Pneumococcal Conjugate 13-Valent (PCV13) 021,12/30/2015 Pneumococcal Polysaccharide (PPSV23) 01/02/2019 Td (TDVAX) 12/17/1998 Family History Medical History Relation Name Comments Hypertension Father Ghassan virgen Daddy Coronary artery disease Mother Hyperlipidemia Paternal Aunt Aunt Rosie Hyperlipidemia Son Robert garcia Relation Name Status Comments Father Ghassan virgen Mother Paternal Aunt Aunt Rosie Son Robert garcia Social History Tobacco Use Types Packs/Day [...] Pulse 66 08/30/2024 2:47 PM EDT Temperature 36.2 C (97.1 F) 06/26/2024 12:26 PM EDT Respiratory Rate 18 08/30/2024 2:47 PM EDT Oxygen Saturation 96% 08/30/2024 2:47 PM EDT Inhaled Oxygen Concentration - - Weight 105 kg (232 lb) 08/30/2024 2:47 PM EDT Height 160 cm (5' 2.99 ) 08/30/2024 2:47 PM EDT Body Mass Index 41.11 08/30/2024 2:47 PM EDT Plan of Treatment Upcoming Encounters Date Type Department Care Team (Late st Contact Info) Description 02/19/2025 3:00 PM EST Office Visit [facility] [address] [place] [address] Earl Dumont MD [address] [place] [place] [address] Health Maintenance Due Date Last Done [...] SCAN Discontinued Medical Devices Implanted Type Area Telehealth Director Device Identifier Shelf Expiration Date Model / Serial / Lot [facility] Bone Simplex/P Full Dose 10/Pk - [id number] Implanted:Qty : 1 on 08/28/2021 by Nilesh Hare MD at [facility] Left: Knee MARTÍN [employer]WEY [id number] 09/08/2023 [id number] / / [id number] [facility] Bone Simplex/P Full Dose 10/Pk - [id number] Implanted:Qty : 1 on 08/28/2021 by Nilesh Hare MD at [facility] Left: Knee MARTÍN DEWEY 11/08/2023 [id number] / / [id number] Dev Contrl Tiss Stratafix Spiral Pdo Bidir 1 [id number] - [id number] Implanted:Qty : 1 on 08/28/2021 by Nilesh Hare MD at [facility] Left: Knee [employer] [employer] J 06/07/2026 [id number] / / [id number] Insrt Tib/Kn Triath Ps A/Poly Sz4 9mm - [id number] Implanted:Qty : 1 on 08/28/2021 by Nilesh Hare MD at [facility] Left: Knee MARTÍN DEWEY [id number] 12/27/2021 [id number] / / [id number] Comp Fem Triath Ps Cmt No4 Lt - [id number] Implanted:Qty : 1 on 08/28/2021 by Nilesh Hare MD at [facility] Left: Knee MARTÍN DEWEY [id number] 06/18/2025 [id number] / / [id number] Peg Fem Fix Triathlon Dist Mod Pk/2 - [id number] Implanted:Qty : 1 on 08/28/2021 by Nilesh Hare MD at [facility] Left: Knee MARTÍN DEWEY [id number] 06/01/2025 [id number] / / [id number] Pat Triath Asym X3 26l13xk - [id number] Implanted:Qty : 1 on 08/28/2021 by Nilesh Hare MD at [facility] Left: Knee MARTÍ[employer] DEWEY [id number] 06/21/2026 [id number] / / [id number] Totl Kn Med [employer] [place] - [id number] Implanted:Qty : 1 on 08/28/2021 by Nilesh Hare MD at [facility] Left: Knee MARTÍN DEWEY CAPKNTOTLME [id number] [...] of3 resultswithin the time period is included. us Earl Dumont MD ECG ORDERABLES Final Result * IMAGING SCANNED (07/10/2024) Only the most recent of3 resultswithin the time period is included. Anatomical Region Laterality Modality Radiographic [place] ging us Earl Dumont MD IMG DIAGNOSTIC IMAGING ORDERABL ES Final Result * FL Video Swallow With Speech Single Contrast (06/19/2024) Anatomical Region Laterality Modality Head and Neck N/A Radiographic [place] ging us Earl Dumont MD IMG FLUOROSCOPY ORDERABLES Aspen l Result * Lipid [...] 12/06/2023 2:25 PM EDT 12/06/2023 Narrative [facility] ([facility]) - 12/07/2023 8:17 AM EDT Performed at: 01 - [facility] [address] [id number] General Purchasing Agent: Osito Cabezas PhD, Phone: [phone] Patient Fasting: N us Earl Dumont MD LAB BLOOD ORDERABLES Final Resu lt [facility] ([facility]) [address] [place] [address], [place] [phone] [facility] [address] [place] [address], [place] [phone] from Last 3 Months or Most Recently Relevant to Health Maintenance Insurance [employer] HMO Advance Directives * CPR (Attempt to Resuscitate) (Latest Code Status on File) Date Activated Date Inactivated Comments 08/28/2021 5:20 PM 09/02/2021 1:46 PM Question Answer Comments Code Status (Patient has no pulse and is not breathing): CPR (Attempt to Resuscitate) Medical Interventions (Patie nt has pulse or is breathing): Full Level Of Support Discussed With: Patient Care Teams Watch Crystal Edge Grinder Relationship Specialty Start Date End Date Earl Dumont MD [place] [address] PCP - General Family Medicine 01/23/20
--- OUTSIDE RECORDS SUMMARY | 2024-09-11 20:07 | XMS_ITS | Encounter Summary ---
[facility] Organization [facility] Address [address] [place] [address] Care Team Providers Care Community Service Organization Director Name Role Phone Earl Dumont MD Primary Care Provider [phone] Reason for Visit * Reason Comments Med Refill Encounter Details Date Type Department Care Team (Late st Contact Info) Description 05/08/2022 Refill [facility] [address] [facility] [place] [address] Earl Dumont MD [address] [facility] [place] [address] Generalized anxiety disorder Social History [...] place to sleep or slept in a residential (including now)? No 10/01/2021 PHQ-2 Answer Date [...] Description 02/19/2025 3:00 PM EST Office Visit [facility] [address] [place] [address] Earl Dumont MD [address] [place] [address] documented as of this encounter Visit Diagnoses Diagnosis Generalized anxiety disorder documented in this encounter Care Teams Community Service Organization Director Relationship Specialty Start Date End Date Earl Dumont MD [address] [place] [address] PCP - General Family Medicine 01/23/20 documented as of this encounter
--- OUTSIDE RECORDS SUMMARY | 2024-09-11 20:07 | XMS_ITS | Encounter Summary ---
[facility] Address [address] [place] [address] Care Team Providers Care Drink Box Mechanic Name Role Phone Earl Dumont MD Primary Care Provider Reason for Visit * Reason Comments Med Refill Encounter Details Date Type Department Care Team (Late st Contact Info) Description 08/29/2024 Refill [facility] [address] [facility] [place] [address] Earl Dumont MD [address] [facility] [place] [address] Social History Tobacco Use Types [...] 3:00 PM EST Office Visit [facility] [address] [place] [address] Earl Dumont MD [address] [place] [address] documented as of this encounter Visit Diagnoses Not on filedocumented in this encounter Additional Health Concerns Assessment Noted Time PHQ-2 Depression Total Score: 2 07/14/19 24 4:30 PM EDT documented as of this encounter Care Teams Drink Box Mechanic Relationship Specialty Start Date End Date Earl Dumont MD [address] [place] [address] PCP - General Family Medicine 01/23/20 documented as of this encounter
--- OUTSIDE RECORDS SUMMARY | 2024-09-11 20:07 | XMS_ITS | Encounter Summary ---
Author Organization [facility] Address [address] [place] [address] Care Team Providers Care Information Technology Analyst Name Role Phone Earl Dumont MD Primary Care Provider [phone] Encounter Details Date Type Department Care Team [...] Description 02/19/2025 3:00 PM EST Office Visit [facility] [address] [place] [address] Earl Dumont MD [address] [place] [address] documented as of this encounter Visit Diagnoses Not on filedocumented in this encounter Additional Health Concerns Assessment Noted Time PHQ-2 Depression Total Score: 2 07/14/19 24 4:30 PM EDT documented as of this encounter Care Teams Information Technology Analyst Relationship Specialty Start Date End Date Earl Dumont MD [address] [place] [address] PCP - General Family Medicine 01/23/20 documented as of this encounter
--- OUTSIDE RECORDS SUMMARY | 2024-09-11 20:07 | XMS_ITS | Encounter Summary ---
Author Organization [facility] [address] [place] [address] Care Team Providers Care Agricultural Equipment Sales Manager Name Role Phone Earl Dumont MD Primary Care Provider [phone] Reason for Visit * Reason Onset Date Comments Med Refill 08/22/2024 Encounter Details Date Type Department Care Team (Late st Contact Info) Description 08/22/2024 Refill [facility] [address] [place] [address] Earl Dumont MD [address] [place] [address] Right leg pain Social History [...] [place] Relationship: Self Best call back number: [phone] Requested Prescriptions: Requested Prescriptions Pending Prescriptions Disp Refills Diclofenac Sodium (VOLTAREN) 1 % gel gel 50 g 1 Sig: Apply 4 g topically to the appropriate area as directed 3 (Three) Times a Day. Pharmacy where request should be sent: [id number] - [place], [place] - [address] [address] [address] [facility] - [phone] - [phone] FX Last office visit with prescribing clinician: 08/21/2024 Last telemedicine visit with prescribing clinician: Visit date not found Next office visit with prescribing clinician: 02/19/2025 Additional details provided by patient: PATIENT HAS CALLED REQUESTING A NEW PRESCRIPTION ON ABOVE MEDICATION TO BE SENT TO [facility] IN [place]. [facility] DID NOT HAVE MEDICATION IN [...] Description 02/19/2025 3:00 PM EST Office Visit [facility] [address] [place] [address] Earl Dumont MD [address] [place] [address] documented as of this encounter Visit Diagnoses Diagnosis Right leg pain Pain in soft tissues of limb documented in this encounter Additional Health Concerns Assessment Noted Time PHQ-2 Depression Total Score: 2 07/14/19 24 4:30 PM EDT documented as of this encounter Care Teams Agricultural Equipment Sales Manager Relationship Specialty Start Date End Date Earl Dumont MD [address] [place] [address] PCP - General Family Medicine 01/23/20 documented as of this encounter
--- NOTE | 2024-09-11 20:20 | XR_ITS ---
FINAL REPORT CLINICAL HISTORY: dyspnea COMPARISON: 08/04/2024 FINDINGS: SINGLE VIEW CHEST There is mild cardiomegaly. The mediastinum is unremarkable. There are chronic changes at the bases. There is increasing atelectasis in the left perihilar region. There is no pneumothorax. IMPRESSION: Increasing atelectasis in the left perihilar region. Reviewed, Interpreted and Dictated by Torey Sloan MD Transcribed by Theresa Craig Authenticated and [facility]
--- NOTE | 2024-09-11 20:24 | ED_ITS ---
Discharge Plan Disposition Patient Disposition: Home, Self-Care Prescriptions Prescriptions: New azithromycin 250 mg tablet 250 mg PO DAILY 4 Days Qty: 4 0RF Rx Instructions: start on day 2 of therapy (day after ED visit) prednisone 50 mg tablet 50 mg PO DAILY 5 Days Qty: 5 0RF Rx Instructions: Please begin 1 day after ED visit albuterol sulfate 90 mcg/actuation HFA aerosol inhaler 4 inh inhalation Q4H PRN (Reason: shortness of breath or wheezing) Qty: 8.5 0RF Rx Instructions: 4 puffs every 4 hours for 48 hours then as needed for shortness of breath or wheezing following amoxicillin-pot clavulanate 875-125 mg tablet 1 tab PO BID 7 Days Qty: 14 0RF No Action alendronate 70 mg tablet 70 mg PO WEEKLY atorvastatin 40 mg Tablet 40 mg PO HS 30 Days Qty: 30 0RF irbesartan 75 mg Tablet 37.5 mg PO HS 30 Days Qty: 15 0RF furosemide 40 mg tablet 20 mg PO BIDL 30 Days Qty: 30 0RF fluticasone propion-salmeterol 250-50 mcg/dose blister with device 1 ea INHALATION BIDRT 30 Days Qty: 60 0RF amiodarone 200 mg Tablet 400 mg PO BID 30 Days Qty: 120 0RF donepezil 10 mg tablet 10 mg PO HS 30 Days Qty: 30 0RF hydroxyzine HCl 50 mg tablet 50 mg PO Q6HP PRN (Reason: Anxiety) 30 Days Qty: 90 0RF Patient Comments: TAKE 1/2 TO 1 TABLET BY MOUTH EVERY 6 HOURS NEEDED FOR ANXIETY clopidogrel 75 mg Tablet 75 mg PO DAILY 30 Days Qty: 30 0RF buspirone 30 mg tablet 30 mg PO BID 30 Days Qty: 60 0RF levothyroxine 125 mcg tablet 125 mcg PO DAILYDM 30 Days Qty: 30 0RF docusate sodium [Stool Softener] 100 mg capsule 100 mg PO BID 30 Days Qty: 60 0RF albuterol sulfate [Ventolin HFA] 90 mcg/actuation HFA aerosol inhaler 2 puff inhalation Q4HP PRN (Reason: shortness of breath or wheezing) 30 Days Qty: 8.5 0RF memantine 5 mg tablet 5 mg PO BID 30 Days Qty: 60 0RF duloxetine 60 mg capsule,delayed release(DR/EC) 60 mg PO DAILY Qty: 30 0RF Eliquis 5 mg tablet 5 mg PO BID Qty: 180 2RF dapagliflozin propanediol [Farxiga] 10 mg Tablet 10 mg PO DAILY 30 Days Qty: 30 0RF Referrals Follow up/Referrals: Provider,Giuliana, [Primary Care Provider, Medical] - See instructions Laxmi Slaughter MD [Physician, Pulmonology] - See instructions Activity Restrictions/Add. Instructions Additional Instructions/Restrictions: No evidence of an acute hypercapnic respiratory failure that would require emergency BiPAP. Ms. Garcia does have evidence of a COPD exacerbation with some questionable patchy infiltrates we will treat for early pneumonia. Please follow-up with Dr. Slaughter to discuss noncompliance with BiPAP that we discussed. In the meantime I highly recommend that she at least be wearing her BiPAP at night and while sleeping and during the day if she is developing significant somnolence or difficulty breathing. Clinical Impressions Clinical Impression: Asthma exacerbation in COPD Print Language Print Language: Mexican Discharge ED Provider: Justin Garcia General Adult HPI General Chief complaint: Shortness of Breath/Dyspnea Stated complaint: SOA Time Seen by Provider: 09/11/24 20:13 Mode of Arrival: EMS Source of Information: Patient Description of Symptoms (Recalled from ER Triage Doc. by RN): pt presents to the Ed d/t complaints of feeling more weak and soa, pt is alert upon arrival. pt was on 2L of o2 at home and was in high 80s pt is now on 4 L at 91% History of Present Illness HPI narrative: Patient is an 79-year-old female presenting today with increasing cough. She states that she is close to her baseline and did not want to be here but her family wanted her to come here because they thought her breathing was worse. She states that her breathing is not worse she has had a mild increase in cough no increase shortness of breath no increased wheezing. She has some sputum production. She is on 2 L of O2 at home and that has not changed. No fevers or chills. She denies any chest pain. Denies any increasing lower extremity edema does states she also has a history of heart failure. Related Data Home Medications ?Medication ?Instructions ?Recorded ?Confirmed alendronate 70 mg tablet 70 mg PO WEEKLY 02/12/24 Held on 08/09/24. Instructions: until back home Previous Rx's ?Medication ?Instructions ?Recorded atorvastatin 40 mg tablet 40 mg PO HS 30 days #30 tabs 02/15/24 albuterol sulfate 90 mcg/actuation 2 puff inhalation Q 4HP PRN 08/09/24 aerosol inhaler (Ventolin HFA) shortness of breath or wheezing 30 days #8.5 grams amiodarone 200 mg tablet 400 mg (2 x 200 mg) PO BID 3 0 days 08/09/24 #120 tabs apixaban 5 mg tablet (Eliquis) 5 mg PO BID #180 tabs 0 08/09/24 buspirone 30 mg tablet 30 mg PO BID 30 days #60 tab s 08/09/24 clopidogrel 75 mg tablet 75 mg PO DAILY 30 days #30 t abs 08/09/24 dapagliflozin propanediol 10 mg 10 mg PO DAILY 30 days #30 tabs 08/09/24 tablet (Farxiga) docusate sodium 100 mg capsule 100 mg PO BID 30 days # 60 caps 08/09/24 (Stool Softener) donepezil 10 mg tablet 10 mg PO HS 30 days #30 tabs 08/09/24 duloxetine 60 mg capsule,delayed 60 mg PO DAILY #30 ca ps 08/09/24 release fluticasone 250 mcg-salmeterol 50 1 ea inhalation BIDR T 30 days #60 08/09/24 mcg/dose blistr powdr for ea inhalation furosemide 40 mg tablet 20 mg (1/2 x 40 mg) PO BIDL 30 08/09/24 days #30 tabs hydroxyzine HCl 50 mg tablet 50 mg PO Q6HP PRN Anxiety 30 days 08/09/24 #90 tabs irbesartan 75 mg tablet 37.5 mg (1/2 x 75 mg) PO HS 30 08/09/24 days #15 tabs levothyroxine 125 mcg tablet 125 mcg PO DAILYDM 30 day s #30 tabs 08/09/24 memantine 5 mg tablet 5 mg PO BID 30 days #60 tabs 08/09/24 albuterol sulfate 90 mcg/actuation 4 inh inhalation Q4 H PRN shortness 09/11/24 aerosol inhaler of breath or wheezing #8.5 g conrad amoxicillin 875 mg-potassium 1 tab PO BID 7 days #14 t abs 09/11/24 clavulanate 125 mg tablet azithromycin 250 mg tablet 250 mg PO DAILY 4 days #4 t abs 09/11/24 prednisone 50 mg tablet 50 mg PO DAILY 5 days #5 tab s 09/11/24 Allergies Allergy/AdvReac Type Severity Reaction Status Date / Time sulfamethoxazole (From AdvReac Mild Nausea Verified 07/24/24 13:36 Bactrim) trimethoprim (From Bactrim) AdvReac Mild Nausea Verified 07/24/24 13:36 [facility] Disclaimer: The information contained in this section may have been updated after the patient was seen, as this information can be updated by other users. Medical History Acute on chronic respiratory failure with hypoxia and hypercapnia Acute on chronic respiratory failure with hypoxemia Acute on chronic heart failure with preserved ejection fraction (HFpEF) Depression Anxiety Pulmonary embolism Osteoarthritis Skin cancer SOB (shortness of breath) on exertion Abnormal echocardiogram Hyperlipidemia (HFpEF) heart failure with preserved ejection fraction CAD (coronary artery disease) HTN (hypertension) Heart failure Elevated troponin Chronic respiratory failure with hypoxia History of COPD Second hand smoke exposure Surgical History History of left knee replacement Family History Other No significant family history Social History Smoking Status: Unknown if ever smoked alcohol intake: never current occupational status: retired Travel in the last 8 weeks?: None Have you lived/traveled outside [place] in past 30 days?: No Contact w/someone who lives/traveled outside US past 30 days?: No Exposure to someone with infectious disease in past 14 days?: No Do you have a fever (greater than 100.4 F or 38 C)?: No Have you tested positive for COVID-19?: No Exposed to someone with COVID-19 in past 14 days?: No Do you have a sore throat?: No Do you have a cough?: No Do you have any weakness?: No Do you have any diarrhea?: No Are you experiencing any unusual bleeding?: No Do you have any muscle aches/pain?: No Do you have any abdominal pain?: No Are you experiencing loss of taste or smell?: No Other Medical History Have you received the Flu Vaccine for this season: No Have you received the Pneumonia Vaccine: No ROS Obtained: Yes All systems reviewed & no additional complaints except as documented Physical Exam General General appearance: alert Respiratory Respiratory exam: Present normal lung sounds bilaterally and other (Ox saturations in the low 90s on 2 L nasal cannula); Absent respiratory distress Cardiovascular Cardiovascular exam: Present regular rate Neurological Exam Neurological exam: Present alert and oriented X3 Medical Decision Making Medical Records Screening: Per USPSTF and CDC recommendations, given the prevalence of disease in our region, it is our hospital?s policy to screen for HIV and viral Hepatitis for all patients aged 18 and over and those with ongoing risk factors. [place] Inquiry Pt receiving controlled substance: No Vital Signs: 09/11/24 20:03 09/11/24 21:01 09/11/24 21:31 Temperature 98.1 F Temperature Source Oral Pulse Rate 78 70 Pulse Rate [Right Radial] 70 Respiratory Rate 20 20 17 Blood Pressure 159/82 H 151/53 H Blood Pressure [Right Arm] 161/57 H Blood Pressure Mean 85 Blood Pressure Mean [Right Arm] 91 Blood Pressure Position [Right Arm] Supine 02 Sat by Pulse Oximetry 91 L 99 98 Oxygen Delivery Method Nasal Cannula Oxygen Flow Rate (LPM) 4 09/11/24 21:43 Temperature Temperature Source Pulse Rate Pulse Rate [Right Radial] Respiratory Rate Blood Pressure Blood Pressure [Right Arm] Blood Pressure Mean Blood Pressure Mean [Right Arm] Blood Pressure Position [Right Arm] 02 Sat by Pulse Oximetry 92 L Oxygen Delivery Method Nasal Cannula Oxygen Flow Rate (LPM) 4 Lab Data Lab results reviewed: Yes I reviewed the patient's lab results. Lab Results 09/11/24 20:15: WBC 8.4, RBC 3.22 L, Hgb 8.8 L, Hct 31.9 L, MCV 99.1 H, MCH 27.3, MCHC 27.6 L, RDW 17.8 H, Plt Count 194, MPV 10.5 H, Neut % (Auto) 67.4, Lymph % (Auto) 19.3, Payne % (Auto) 10.6 H, Eos % (Auto) 0.8, Baso % (Auto) 1.1, Neut # (Auto) 5.7, Lymph # (Auto) 1.6, Payne # (Auto) 0.9, Eos # (Auto) 0.1, Baso # (Auto) 0.1, D-Dimer 0.58 H, VBG pH 7.30 L, VBG pCO2 88.4 H, VBG pO2 93.0 H, V BG HCO3 42.3 H, VBG Total CO2 45.0 H, VBG O2 Saturation 97.0 H, VBG Base Excess 13.0 H, VBG Lactic Acid 0.6, Sodium 135 L, Potassium 4.3, Chloride 93 L, Carbon Dioxide 47 H*, Anion Gap -0.7 L, BUN 12, Creatinine 0.60, Estimated Creat Clear 74, Estimated GFR 96, Est GFR ( Amer) 116, Glucose 101 H, Calcium 8.9, Total Bilirubin 0.2, AST 29, ALT 15, Alkaline Phosphatase 82, Troponin I 0.02, N T-Pro-B Natriuret Pep 950 H, Total Protein 5.4 L, Albumin 2.4 L, Globulin 3.0, A lbumin/Globulin Ratio 0.8 L 09/11/24 20:35: SARS-CoV-2 (PCR) Not detected, Influenza A Untype (PCR) Not detected, Influenza Type B (PCR) Not detected 09/11/24 20:15 09/11/24 20:15 Orders (Tests/Meds): ED MEDICATIONS Discontinued Medications Generic Name Dose Route Start Last Admin Trade Name Freq PRN Reason Stop Dose Admin Amoxicillin/Clavulanate Potassium 1 each 09/11/24 21:51 09/11/24 21:57 Amoxicillin/Clavulanate Potassium 875/125mg Tablet PO 09/11/24 21:52 1 each ONCE ONE Administration Azithromycin 500 mg 09/11/24 21:51 09/11/24 21:57 Azithromycin 250mg Tablet PO 09/11/24 21:52 500 mg ONCE ONE Administration Magnesium Sulfate 2 gm in 50 mls @ 50 mls/hr 09/11/24 20:20 09/11/24 21:41 Magnesium Sulfate 2gm/50ml Premix IV 09/11/24 21:19 Not Given ONCE ONE Magnesium Sulfate 2 gm in 50 mls @ 50 mls/hr 09/11/24 21:00 09/11/24 20:59 Magnesium Sulfate 2gm/50ml Premix IV 09/11/24 21:59 50 mls/hr ONCE ONE Administration Methylprednisolone Sodium Succinate 125 mg 09/11/24 20:20 09/11/24 20:59 Methylprednisolone Sod Succ 125mg Vial IV 09/11/24 20:21 125 mg ONCE ONE Administration Methylprednisolone Sodium Succinate 125 mg 09/11/24 21:00 09/11/24 21:02 Methylprednisolone Sod Succ 125mg Vial IV 09/11/24 21:01 Not Given ONCE ONE ORDERS Category Date Time Status CXR --portable [XR chest portable] Stat Exams 09/11/24 20:20 Taken BNP [NT Pro Brain Natriuretic Pep.] Stat Lab 09/11/24 20:15 Completed CBC w/Auto Diff [Complete Blood Count Auto Diff] Stat Lab 09/11/24 20:15 Completed CMP [Comprehensive Metabolic Panel] Stat Lab 09/11/24 20:15 Completed D-Dimer Stat Lab 09/11/24 20:15 Completed Rapid PCR Covid and Flu A/B Stat Lab 09/11/24 20:35 Completed Trop I [Troponin I] Stat Lab 09/11/24 20:15 Completed Troponin I Q3H Lab 09/11/24 23:30 Ordered Troponin I Q3H Lab 09/12/24 02:30 Ordered Venous Blood Gas Stat RT 09/11/24 20:15 Completed 12-lead EKG Request [ECG Request] Stat Y 09/11/24 20:08 Ordered ECG Data Tracing #1: I reviewed this ECG and interpreted as documented below: Ventricular rate of 67 right axis deviation no acute ischemic changes noted abnormalities sinus Medical Decision Narrative: Nontoxic 79-year-old female who states that she is at her baseline per family believes that her breathing has worsened. They are not at the bedside to give a history however we will work her up as she has a history of heart failure COPD etc. Differential includes COPD exacerbation which is most likely. She states she felt much better after DuoNeb's and route. They were unable to give her any steroids as they could not get IV access. Will give her IV Solu-Medrol as addition to magnesium. Chest x-ray will be performed to rule out any type of significant consolidation but likely will treat her with antibiotics regardless. Heart failure exacerbations on the differential as well as is a pulmonary embolism acute coronary syndrome etc. Reassessment 1019 patient remains very stable. Blood gas does not show any significant acute hypercapnic respiratory failure pH 7.3 no indication for emergency BiPAP. She is not in any distress on my reassessment. Chest x-ray shows patchy bilateral infiltrates similar to old chest x-rays no definitive new dense consolidation but will treat for possible early pneumonia. Augmentin and azithromycin given in the emergency department. She will go home with steroids and breathing treatments as well. I had an extensive discussion with her family who was at the bedside the patient's been very noncompliant with her BiPAP. I reemphasized that she needs to be wearing this at night and I would also recommend during the day when she is somnolent or having shortness of breath. She seems to not want to be compliant with this however she understands the downstream complications of not wearing this with her underlying significant comorbidities including chronic hypoxic and hypercapnic respiratory failure likely obesity hypoventilation as well as sleep apnea. She is followed by our fixing machine operator here and I recommend that she closely follow-up with them regarding the noncompliance with BiPAP to see if there is any other products that would be helpful for her. Family are all in agreement send prescription sent to her pharmacy first dose of antibiotics given in the emergency department she was discharged in stable condition. Critical Care Critical Care Time Critical Care Time: Yes Attestation: On 09/11/24, the high probability of a clinically significant, sudden or life threatening deterioration of the following system(s) required my full and direct attention, intervention and personal management. The time I documented below is in addition to time spent performing reported procedures but includes the following listed in this critical care notation. Total Time Total Critical Care Time: 35
[2024-09-11 20:26] LABS: Hematocrit 31.9 % (37.0-47.0); Hemoglobin 8.8 g/dL (12.2-16.2); Immature Granulocytes % 0.8 %; Mean Corpuscular HGB Conc 27.6 g/dL (31.8-35.4); Mean Corpuscular Hemoglobin 27.3 pg (27.0-31.2); Mean Corpuscular Volume 99.1 fl (81-99); Nucleated Red Blood Cells % 0 %; Platelet Count 194 K/mm3 (142-424); Red Blood Count 3.22 M/mm3 (4.20-5.40); Red Cell Distribution Width-SD 65.2 fL; White Blood Count 8.4 K/mm3 (4.8-10.8)
[2024-09-11 20:34] LABS: VBG PH 7.30 mmol/L (7.31-7.41)
[2024-09-11 20:35] LABS: Lactate Venous 0.6 mmol/L (0.4-2.0); VBG HCO3 42.3 mmol/L (23-30); VBG PCO2 88.4 mmol/L (35-51); VBG PO2 93.0 mmol/L (28-40)
--- NOTE | 2024-09-11 20:37 | PC.NURSE ---
Critical Lab Value Report tx Lab, PH 7.3, Co2 88.4, o2 93%, Bicarb, 42.3, 6.4. Reported to Dr. Garcia
[2024-09-11 20:38] LABS: Coronavirus 19, PCR Not Detected (NotDetected); Influenza A, PCR Not Detected (NotDetected); Influenza B, PCR Not Detected (NotDetected)
[2024-09-11 20:41] LABS: Albumin Level 2.4 g/dl (3.5-5.0); Chloride 93 mmol/L (98-107); Potassium 4.3 mmoL/L (3.5-5.1); Sodium 135 mmol/L (136-145)
[2024-09-11 20:44] LABS: Alanine Aminotransferase 15 U/L (12-78); Albumin/Globulin Ratio 0.8 (1.1-1.8); Alkaline Phosphatase 82 U/L (38-126); Aspartate Amino Transferase 29 U/L (14-36); Bilirubin,Total 0.2 mg/dl (0.2-1.3); Blood Urea Nitrogen 12 mg/dl (7-17); Calcium 8.9 mg/dl (8.4-10.2); Creatinine Clearance Estimated 74 mL/min (50-200); Creatinine,Serum 0.60 mg/dl (0.52-1.04); Estimated Glomerular Filt Rate 96 ml/min (>60); GFR (African American) 116 ML/MIN (>60); Globulin 3.0 g/dL (1.3-3.2); Glucose 101 mg/dl (74-100); Total Protein,Serum 5.4 g/dl (6.3-8.2)
[2024-09-11 20:49] LABS: D-Dimer 0.58 ug/mL (0.0-0.5)
[2024-09-11 20:51] LABS: Anion Gap -0.7 mEq/L (5-15); Carbon Dioxide 47 mmol/L (22.0-30.0)
[2024-09-11 20:54] LABS: NT Pro Brain Natriuretic Pep. 950 pg/mL (0-450)
[2024-09-11 20:56] LABS: Troponin I 0.02 ng/ml (0.00-0.034)
[2024-09-11] MEDS: METHYLPREDNISOLONE SOD SUCC 125MG VIAL 125 MG IV (20:59)
[2024-09-11] MEDS: MAGNESIUM SULFATE IN WATER 2 GM/50 ML PIGGYBACK IV (20:59)
[2024-09-11 21:01] VITALS: BP 159/82; PULSE 78; RESP 20; O2SAT 99
--- OUTSIDE RECORDS SUMMARY | 2024-09-11 21:06 | XMS_ITS | CCD ---
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
[2024-09-11 21:31] VITALS: BP 151/53; PULSE 70; RESP 17; O2SAT 98
[2024-09-11 21:43] VITALS: O2SAT 92
[2024-09-11] MEDS: AMOXICILLIN/CLAVULANATE POTASSIUM 875/125MG TABLET 1 EACH PO (21:57)
[2024-09-11] MEDS: AZITHROMYCIN 250MG TABLET 500 MG PO (21:57)
--- NOTE | 2024-09-11 22:58 | PC.NURSE ---
Pt is up for discharge. Awaiting pt family to bring home oxygen tank before d/c home.
--- NOTE | 2024-09-11 23:20 | PC.NURSE ---
Still awaiting family member to bring pt's home oxygen tank
[2024-09-12 00:02] VITALS: BP 155/89; PULSE 89; RESP 20; TEMP 37.1; O2SAT 4
--- OUTSIDE RECORDS SUMMARY | 2024-11-01 20:00 | XMS_ITS | Clinical Summary ---
Author Organization Unknown Care Team Providers Care Convenience Store Clerk Name Role Phone PATRICIA ZAPATA, URI Unavailable Unavailable RADHA PT, LAURITA Unavailable Unavailable LU MARTIN, LAYO Unavailable Unavailable TRENT OT, CHAPITO Unavailable Unavailable Payers Payer Name Policy Type Policy Number Effective Date Expira tion Date ESTHER [id number] Problems Condition Name Condition Details Condition Category Status Onset Date Resolution Date Last Treatment Date Treating Clinician Comments CHRONIC DIASTOLIC (CONGESTIVE ) HEART FAILURE Active 08-31 00:00: 00 Allergies, Adverse Reactions, Alerts Allergy Name Allergy Type Status Severity Reaction(s) Onset Date Inactive Date Treating Clinician Comments BACTRIM Propensity to adverse reactions Active 09-04 13:14: 46 SULFAMETHOXA ZOLE Propensity to adverse reactions Active 09-04 13:14: 59 TRIMETHOPRIM Propensity to adverse reactions Active 09-04 13:15: 08 Medications Ordered Medication Name Filled Medication Name Start Date Stop Date Current Medication? Ordering Clinician Indication Dosage Frequency Signature (SIG) Comments Components atenolol 25 mg tablet 04-24 00:00: 00 10-13 23:59 :00 No [id number] HTN 1 tablet DAILY 1 tablet DAILY (route: oral) Med Classific ation: Cardiovas cular Therapy Agents furosemide 40 mg tablet 04-24 00:00: 00 10-13 23:59 :00 No [id number] FLUID 1 tablet DAILY 1 tablet DAILY (route: oral) Med Classific ation: Cardiovas cular Therapy Agents valsartan 80 mg tablet 2023-0 3-17 00:00: 00 04-29 00:00 :00 No [id number] Per instruc tions Per instructio ns (route: oral) Med Classific ation: Cardiovas cular Therapy Agents hydroxyzine HCl 25 mg tablet 3- 00:00: 00 10-13 23:59 :00 No [id number] ANXIETY 1 tablet 2 TIMES DAILY 1 tablet 2 TIMES DAILY (route: oral) Med Classific ation: Central Nervous System Agents alendronate 70 mg tablet 04-14 00:00: 00 10-13 23:59 :00 No [id number] OSTEOPOROSI S 1 tablet WEEKLY 1 tablet WEEKLY (route: oral) Med Classific ation: Endocrine Trelegy Ellipta 200 mcg-62.5 mcg-25 mcg powder for inhalation 04-14 00:00: 00 10-13 23:59 :00 No [id number] BREATHING 1 inhalat ion DAILY 1 inhalation DAILY (route: inhalation ) Med Classific ation: Respirato ry Therapy Agents duloxetine 60 mg capsule,del ayed release 04-11 00:00: 00 10-13 23:59 :00 No [id number] DEPRESSION 1 capsule DAILY 1 capsule DAILY (route: oral) Med Classific ation: Central Nervous System Agents furosemide 20 mg tablet - 00:00: 00 04-29 00:00 :00 No [id number] Per instruc tions Per instructio ns (route: oral) Med Classific ation: Cardiovas cular Therapy Agents donepezil 10 mg tablet - 00:00: 00 10-13 23:59 :00 No [id number] MEMORY 1 tablet DAILY 1 tablet DAILY (route: oral) Med Classific ation: Cognitive Disorder Therapy levothyroxi ne 125 mcg tablet - 00:00: 00 10-13 23:59 :00 No [id number] THYROID 1 tablet DAILY 1 tablet DAILY (route: oral) Med Classific ation: Endocrine losartan 50 mg-hydrochl orothiazide 12.5 mg tablet - 00:00: 00 10-13 23:59 :00 No [id number] HTN 1 tablet DAILY 1 tablet DAILY (route: oral) Med Classific ation: Cardiovas cular Therapy Agents omeprazole 40 mg capsule,del ayed release 2- 00:00: 00 10-13 23:59 :00 No [id number] GERD 1 capsule DAILY 1 capsule DAILY (route: oral) Med Classific ation: Gastroint estinal Therapy Agents amlodipine 5 mg tablet - 00:00: 00 10-13 23:59 :00 No [id number] HTN 1 tablet DAILY 1 tablet DAILY (route: oral) Med Classific ation: Cardiovas cular Therapy Agents atenolol 50 mg tablet - 00:00: 00 04-29 00:00 :00 No [id number] Per instruc tions Per instructio ns (route: oral) Med Classific ation: Cardiovas cular Therapy Agents buspirone 30 mg tablet - 00:00: 00 10-13 23:59 :00 No [id number] DEPRESSION 1 tablet 3 TIMES DAILY 1 tablet 3 TIMES DAILY (route: oral) Med Classific ation: Central Nervous System Agents pravastatin 20 mg tablet - 00:00: 00 10-13 23:59 :00 No [id number] CHOLESTEROL 1 tablet DAILY 1 tablet DAILY (route: oral) Med Classific ation: Cardiovas cular Therapy Agents Breo Ellipta 100 mcg-25 mcg/dose powder for inhalation - 00:00: 00 10-13 23:59 :00 No [id number] BREATHING 1 inhalat ion DAILY 1 inhalation DAILY (route: inhalation ) Med Classific ation: Respirato ry Therapy Agents trazodone 100 mg tablet - 00:00: 00 10-13 23:59 :00 No [id number] SLEEP 1 tablet DAILY 1 tablet DAILY (route: oral) Med Classific ation: Central Nervous System Agents Entresto 24 mg-26 mg tablet 5-21 00:00: 00 10-13 23:59 :00 No [id number] CHF 1 tablet 2 TIMES DAILY 1 tablet 2 TIMES DAILY (route: oral) Med Classific ation: Cardiovas cular Therapy Agents doxycycline hyclate 100 mg capsule 10-14 00:00: 00 02-21 00:00 :00 No [id number] ANTIBIOTIC 1 capsule 2 TIMES DAILY 1 capsule 2 TIMES DAILY (route: oral) Med Classific ation: Anti-Infe ctive Agents ipratropium 0.5 mg-albutero l 3 mg (2.5 mg base)/3 mL nebulizatio n soln 10-14 00:00: 00 02-21 00:00 :00 No [id number] BREATHING 3 mL 3 TIMES DAILY 3 mL 3 TIMES DAILY (route: inhalation ) Med Classific ation: Respirato ry Therapy Agents levofloxaci n 750 mg tablet 10-14 00:00: 00 02-21 00:00 :00 No [id number] ANTIBIOTIC 1 tablet DAILY 1 tablet DAILY (route: oral) Med Classific ation: Anti-Infe ctive Agents oxycodone 5 mg tablet 10-14 00:00: 00 02-21 00:00 :00 No [id number] PAIN 1 tablet EVERY 8 HOURS 1 tablet EVERY 8 HOURS (route: oral) Med Classific ation: Analgesic , Anti-infl ammatory or Antipyret ic trazodone 150 mg tablet 10-05 00:00: 00 05-17 00:00 :00 No [id number] DEPRESSION AND SLEEP 1 tablet BEDTIME 1 tablet BEDTIME (route: oral) Med Classific ation: Central Nervous System Agents albuterol sulfate 2.5 mg/3 mL (0.083 %) solution for nebulizatio n 10-03 00:00: 00 05-17 00:00 :00 No [id number] SHORTNESS OF BREATH 2.5 mg EVERY 4 HOURS 2.5 mg EVERY 4 HOURS (route: inhalation ) Med Classific ation: Respirato ry Therapy Agents clotrimazol e 1 % topical cream 10-03 00:00: 00 10-24 00:00 :00 No [id number] Unavailable Per instruc tions EVERY 12 HOURS DIRECTED Per instructio ns EVERY 12 HOURS DIRECTED (route: topical) Med Classific ation: Dermatolo gical hydroxyzine HCl 50 mg tablet 10-03 00:00: 00 10-24 00:00 :00 No [id number] Unavailable Per instruc tions EVERY 6 HOURS NEEDED Per instructio ns EVERY 6 HOURS NEEDED (route: oral) Med Classific ation: Central Nervous System Agents ondansetron 8 mg disintegrat ing tablet 10-03 00:00: 00 10-24 00:00 :00 No [id number] Unavailable Per instruc tions EVERY 8 HOURS NEEDED Per instructio ns EVERY 8 HOURS NEEDED (route: oral) Med Classific ation: Gastroint estinal Therapy Agents sulfamethox azole 800 mg-trimetho prim 160 mg tablet 10-03 00:00: 00 10-24 00:00 :00 No [id number] Unavailable Per instruc tions TWICE DAILY FOR 10 DAYS Per instructio ns TWICE DAILY FOR 10 DAYS (route: oral) Med Classific ation: Anti-Infe ctive Agents albuterol sulfate HFA 90 mcg/actuati on aerosol inhaler 09-27 00:00: 00 Yes [id number] BREATHING 2 puff EVERY 4 HOURS 2 puff EVERY 4 HOURS (route: inhalation ) Med Classific ation: Respirato ry Therapy Agents memantine 5 mg tablet 09-26 00:00: 00 Yes [id number] DEMENTIA 1 tablet 2 TIMES DAILY 1 tablet 2 TIMES DAILY (route: oral) Med Classific ation: Cognitive Disorder Therapy amlodipine 5 mg tablet 09-21 00:00: 00 05-17 00:00 :00 No [id number] BLOOD PRESSURE 1 tablet DAILY 1 tablet DAILY (route: oral) Med Classific ation: Cardiovas cular Therapy Agents levothyroxi ne 125 mcg tablet 09-21 00:00: 00 Yes [id number] THYROID 1 tablet DAILY 1 tablet DAILY (route: oral) Med Classific ation: Endocrine duloxetine 60 mg capsule,del ayed release 09-19 00:00: 00 Yes [id number] MOOD 1 capsule DAILY 1 capsule DAILY (route: oral) Med Classific ation: Central Nervous System Agents famotidine 40 mg tablet 09-19 00:00: 00 05-17 00:00 :00 No [id number] GERD 1 tablet DAILY 1 tablet DAILY (route: oral) Med Classific ation: Gastroint estinal Therapy Agents hydroxyzine HCl 25 mg tablet 09-19 00:00: 00 09-04 00:00 :00 No [id number] ANXIETY Per instruc tions EVERY 6 HOURS Per instructio ns EVERY 6 HOURS (route: oral) Med Classific ation: Central Nervous System Agents atenolol 25 mg tablet 10-25 00:00: 00 05-17 00:00 :00 No [id number] BLOOD PRESSURE 1 tablet DAILY 1 tablet DAILY (route: oral) Med Classific ation: Cardiovas cular Therapy Agents donepezil 10 mg tablet 10-25 00:00: 00 Yes [id number] DEMENTIA 1 tablet DAILY 1 tablet DAILY (route: oral) Med Classific ation: Cognitive Disorder Therapy Eliquis 5 mg tablet 10-25 00:00: 00 Yes [id number] BLOOD THINNER 1 tablet 2 TIMES DAILY 1 tablet 2 TIMES DAILY (route: oral) Med Classific ation: Hematolog ical Agents Entresto 49 mg-51 mg tablet 10-25 00:00: 00 05-17 00:00 :00 No [id number] HEART FAILURE 1 tablet 2 TIMES DAILY 1 tablet 2 TIMES DAILY (route: oral) Med Classific ation: Cardiovas cular Therapy Agents pravastatin 20 mg tablet 10-25 00:00: 00 02-21 00:00 :00 No [id number] CHOLESTEROL 1 tablet BEDTIME 1 tablet BEDTIME (route: oral) Med Classific ation: Cardiovas cular Therapy Agents alendronate 70 mg tablet 02-14 00:00: 00 09-04 00:00 :00 No [id number] OSTEOPOROSI S 1 tablet WEEKLY 1 tablet WEEKLY (route: oral) Med Classific ation: Endocrine atorvastati n 40 mg tablet 02-14 00:00: 00 Yes [id number] CHOLESTEROL 1 tablet BEDTIME 1 tablet BEDTIME (route: oral) Med Classific ation: Cardiovas cular Therapy Agents Breyna 160 mcg-4.5 mcg/actuati on HFA aerosol inhaler 02-14 00:00: 00 05-17 00:00 :00 No [id number] COPD 2 puff 2 TIMES DAILY 2 puff 2 TIMES DAILY (route: inhalation ) Med Classific ation: Respirato ry Therapy Agents buspirone 30 mg tablet 02-14 00:00: 00 Yes [id number] MOOD 1 tablet 2 TIMES DAILY 1 tablet 2 TIMES DAILY (route: oral) Med Classific ation: Central Nervous System Agents guaifenesin ER 600 mg tablet, extended release 12 hr 02-14 00:00: 00 09-04 00:00 :00 No [id number] COUGH 2 tablet 2 TIMES DAILY 2 tablet 2 TIMES DAILY (route: oral) Med Classific ation: Respirato ry Therapy Agents prednisone 20 mg tablet 02-14 00:00: 00 05-17 00:00 :00 No [id number] COPD 2 tablet 2 TIMES DAILY 2 tablet 2 TIMES DAILY (route: oral) Med Classific ation: Endocrine Trelegy Ellipta 100 mcg-62.5 mcg-25 mcg powder for inhalation 02-14 00:00: 00 09-04 00:00 :00 No [id number] COPD 1 inhalat ion DAILY 1 inhalation DAILY (route: inhalation ) Med Classific ation: Respirato ry Therapy Agents acetazolami de 250 mg tablet 05-17 00:00: 00 09-04 00:00 :00 No [id number] SHORTNESS OF BREATH 1 tablet 2 TIMES DAILY 1 tablet 2 TIMES DAILY (route: oral) Med Classific ation: Cardiovas cular Therapy Agents bumetanide 2 mg tablet 05-17 00:00: 00 09-04 00:00 :00 No [id number] EDEMA 1 tablet 2 TIMES DAILY 1 tablet 2 TIMES DAILY (route: oral) Med Classific ation: Cardiovas cular Therapy Agents diltiazem 120 mg tablet 05-17 00:00: 00 09-04 00:00 :00 No [id number] ANGINA 1 tablet DAILY 1 tablet DAILY (route: oral) Med Classific ation: Cardiovas cular Therapy Agents levofloxaci n 750 mg tablet 05-17 00:00: 00 05-23 23:59 :00 No [id number] ANTIBIOTIC 1 tablet DAILY 1 tablet DAILY (route: oral) Med Classific ation: Anti-Infe ctive Agents metoprolol tartrate 25 mg tablet 05-17 00:00: 00 09-04 00:00 :00 No [id number] BLOOD PRESSURE 1 tablet 2 TIMES DAILY 1 tablet 2 TIMES DAILY (route: oral) Med Classific ation: Cardiovas cular Therapy Agents Stool Softener 100 mg capsule 08-01 00:00: 00 09-04 00:00 :00 No [id number] CONSTIPATIO N 100 mg 2 TIMES DAILY 100 mg 2 TIMES DAILY (route: oral) Med Classific ation: Gastroint estinal Therapy Agents valsartan 40 mg tablet 08-01 00:00: 00 09-04 00:00 :00 No [id number] BP 40 mg 2 TIMES DAILY 40 mg 2 TIMES DAILY (route: oral) Med Classific ation: Cardiovas cular Therapy Agents Vital Signs Vital Name Observation Time Observation Value Commen ts Temperature 2024-09-08 12:47:00.000 98 [degF] Temperature 2024-09-04 13:16:00.000 98.3 [degF] BMI (%) 2024-09-04 13:15:54.000 43 kg/m2 Height 2024-09-04 13:15:31.000 63 [in_us] Pulse 2024-09-08 12:47:00.000 73 /min Pulse 2024-09-04 13:16:00.000 68 /min O2 Saturation (%) 2024-09-08 12:47:00.000 96 % O2 Saturation (%) 2024-09-04 13:16:00.000 98 % Respirations 2024-09-08 12:47:00.000 17 /min Respirations 2024-09-04 13:16:00.000 18 /min Weight (lbs) 2024-09-04 13:15:54.000 245 [lb_av] Systolic Blood Pressure 2024-09-08 12:47:00.000 150 mm [Hg] Systolic Blood Pressure 2024-09-04 13:16:00.000 112 mm [Hg] Diastolic Blood Pressure 2024-09-08 12:47:00.000 70 mm [Hg] Diastolic Blood Pressure 2024-09-04 13:16:00.000 68 mm [Hg] Plan of Treatment Planned Activity Planned Date Details Comments Future Scheduled Test AGENCY MAY PERFORM A RESUMPTION OF CARE VISIT FOLLOWING ANY HOSPITAL ADMISSION. PT TO EVALUATE, OBSERVE / ASSESS, AND MONITOR, ELEMENT SETTER TO OBSERVE AND MONITOR, PROVIDE SKILLED THERAPEUTIC INTERVENTION, ACTIVITY, EDUCATION, AND TRAINING TO ADDRESS; [code = AGENCY MAY PERFORM A RESUMPTION OF CARE VISIT FOLLOWING ANY HOSPITAL ADMISSION. PT TO EVALUATE, OBSERVE / ASSESS, AND MONITOR, ELEMENT SETTER TO OBSERVE AND MONITOR, PROVIDE SKILLED THERAPEUTIC INTERVENTION, ACTIVITY, EDUCATION, AND TRAINING TO ADDRESS;] Future Scheduled Test SIT TO/FRO M STAND TRANSFERS (PT/ELEMENT SETTER) [code = SIT TO/FROM STAND TRANSFERS (PT/ELEMENT SETTER)] Future Scheduled Test PT/ELEMENT SETTER TO PROVIDE GAIT TRAINING FOR IMPROVED MOBILITY AND /OR TO NORMALIZE GAIT PATTERN [code = PT/ELEMENT SETTER TO PROVIDE GAIT TRAINING FOR IMPROVED MOBILITY AND /OR TO NORMALIZE GAIT PATTERN] Future Scheduled Test NEUROMUSCU LAR RE-EDUCATION / BALANCE / POSTURAL CONTROL (PT) [code = NEUROMUSCULAR RE-EDUCATION / BALANCE / POSTURAL CONTROL (PT)] Future Scheduled Test THERAPEUTI C EXERCISES AND ESTABLISHING A HOME EXERCISE PROGRAM (PT/ELEMENT SETTER) [code = THERAPEUTIC EXERCISES AND ESTABLISHING A HOME EXERCISE PROGRAM (PT/ELEMENT SETTER)] Future Scheduled Test PT/ELEMENT SETTER TO IDENTIFY FALL RISK FACTORS; EDUCATE THE PATIENT/CAREGIVER ON WAYS TO REDUCE FALL RISK FACTORS AND ESTABLISH HOME EXERCISE PROGRAM TO MINIMIZE FALL RISK. MAY TEACH THE PATIENT FLOOR RECOVERY WHEN CLINICALLY APPROPRIATE [code = PT/ELEMENT SETTER TO IDENTIFY FALL RISK FACTORS; EDUCATE THE PATIENT/CAREGIVER ON WAYS TO REDUCE FALL RISK FACTORS AND ESTABLISH HOME EXERCISE PROGRAM TO MINIMIZE FALL RISK. MAY TEACH THE PATIENT FLOOR RECOVERY WHEN CLINICALLY APPROPRIATE] Future Scheduled Test PT / ELEMENT SETTER T O INSTRUCT PATIENT/CAREGIVER ON RISK FOR HOSPITALIZATION/EMERGENCY ROOM VISITS, TEACH SIGNS AND SYMPTOMS THAT PUT PATIENT AT RISK, WHEN TO NOTIFY NURSE/PHYSICIAN OF COMPLICATIONS/DECLINE, AND WHEN TO CALL 911. [code = PT / ELEMENT SETTER TO INSTRUCT PATIENT/CAREGIVER ON RISK FOR HOSPITALIZATION/EMERGENCY ROOM VISITS, TEACH SIGNS AND SYMPTOMS THAT PUT PATIENT AT RISK, WHEN TO NOTIFY NURSE/PHYSICIAN OF COMPLICATIONS/DECLINE, AND WHEN TO CALL 911.] Future Scheduled Test PT / ELEMENT SETTER T O MONITOR AND EDUCATE ON OXYGEN SATURATION DURING ADLS/IADLS, NOTIFY PHYSICIAN AND/OR THE RN CLINICAL TOOLROOM HELPER FOR PHYSICIAN NOTIFICATION AND IF O2 SATS BELOW PHYSICIAN ORDERED PARAMETERS AFTER 10 MIN OF REST [code = PT / ELEMENT SETTER TO MONITOR AND EDUCATE ON OXYGEN SATURATION DURING ADLS/IADLS, NOTIFY PHYSICIAN AND/OR THE RN CLINICAL TOOLROOM HELPER FOR PHYSICIAN NOTIFICATION AND IF O2 SATS BELOW PHYSICIAN ORDERED PARAMETERS AFTER 10 MIN OF REST] Future Scheduled Test MEDICAL SO CIAL WORKER TO EVALUATE FOR COMMUNITY SERVICES [code = ARTIFICIAL BREEDING DISTRIBUTOR TO EVALUATE FOR COMMUNITY SERVICES ] Future Scheduled Test SKILLED NU RSING TO EVALUATE FOR MEDICATION AND PATHOLOGY MANAGEMENT. [code = LONG TERM TO EVALUATE FOR MEDICATION AND PATHOLOGY MANAGEMENT. ] Future Scheduled Test AGENCY MAY PERFORM A RESUMPTION OF CARE VISIT FOLLOWING ANY HOSPITAL ADMISSION. OT TO EVALUATE, OBSERVE / ASSESS, AND MONITOR, EMILIANO TO OBSERVE AND MONITOR, PROVIDE SKILLED THERAPEUTIC INTERVENTION, ACTIVITY, EDUCATION, AND TRAINING TO ADDRESS; IMPROVEMENT OF FUNCTIONAL TRANSFERS, ACTIVITY TOLERANCE AND SELF-CARE PERFORMANCE TOILETING HYGIENE (OT/COMPOUND WORKER) DRESSING (OT/COMPOUND WORKER) ACTIVITIES OF DAILY LIVING (OT/EMILIANO) BED TRANSFERS (OT/EMILIANO) TOILET TRANSFER (OT/COMPOUND WORKER) BATH/SHOWER TRANSFER (OT/COMPOUND WORKER) OT/COMPOUND WORKER TO MONITOR AND EDUCATE ON OXYGEN SATURATION DURING ADLS/IADLS, NOTIFY PHYSICIAN AND/OR THE RN CLINICAL TOOLROOM HELPER FOR PHYSICIAN NOTIFICATION AND IF O2 SATS BELOW 90% AFTER 10 MIN OF REST. OT/EMILIANO MAY EDUCATE ON PAIN MANAGEMENT CLINICALLY INDICATED, INCLUDING NON-PHARMACOLOGICAL PAIN REDUCTION TECHNIQUES AND USE OF CRYOTHERAPY OR HEAT UP TO 20 MIN AT A TIME FOR PAIN MANAGEMENT OT / COMPOUND WORKER TO IDENTIFY FALL RISK FACTORS; EDUCATE THE PATIENT/CAREGIVER ON WAYS TO REDUCE FALL RISK FACTORS AND ESTABLISH HOME EXERCISE PROGRAM TO MINIMIZE FALL RISK. MAY TEACH THE PATIENT FLOOR RECOVERY WHEN CLINICALLY APPROPRIATE. OT/COMPOUND WORKER TO EDUCATE ON HEART FAILURE SELF-MANAGEMENT [code = AGENCY MAY PERFORM A RESUMPTION OF CARE VISIT FOLLOWING ANY HOSPITAL ADMISSION. OT TO EVALUATE, OBSERVE / ASSESS, AND MONITOR, EMILIANO TO OBSERVE AND MONITOR, PROVIDE SKILLED THERAPEUTIC INTERVENTION, ACTIVITY, EDUCATION, AND TRAINING TO ADDRESS; IMPROVEMENT OF FUNCTIONAL TRANSFERS, ACTIVITY TOLERANCE AND SELF-CARE PERFORMANCE TOILETING HYGIENE (OT/COMPOUND WORKER) DRESSING (OT/COMPOUND WORKER) ACTIVITIES OF DAILY LIVING (OT/EMILIANO) BED TRANSFERS (OT/EMILIANO) TOILET TRANSFER (OT/COMPOUND WORKER) BATH/SHOWER TRANSFER (OT/EMILIANO) OT/EMILIANO TO MONITOR AND EDUCATE ON OXYGEN SATURATION DURING ADLS/IADLS, NOTIFY PHYSICIAN AND/OR THE RN CLINICAL TOOLROOM HELPER FOR PHYSICIAN NOTIFICATION AND IF O2 SATS BELOW 90% AFTER 10 MIN OF REST. OT/EMILIANO MAY EDUCATE ON PAIN MANAGEMENT CLINICALLY INDICATED, INCLUDING NON-PHARMACOLOGICAL PAIN REDUCTION TECHNIQUES AND USE OF CRYOTHERAPY OR HEAT UP TO 20 MIN AT A TIME FOR PAIN MANAGEMENT OT / EMILIANO TO IDENTIFY FALL RISK FACTORS; EDUCATE THE PATIENT/CAREGIVER ON WAYS TO REDUCE FALL RISK FACTORS AND ESTABLISH HOME EXERCISE PROGRAM TO MINIMIZE FALL RISK. MAY TEACH THE PATIENT FLOOR RECOVERY WHEN CLINICALLY APPROPRIATE. OT/COMPOUND WORKER TO EDUCATE ON HEART FAILURE SELF-MANAGEMENT] Future Scheduled Test MEDICAL SO CIAL SERVICES FOR COMMUNITY RESOURCE PLANNING. [code = MEDICAL CORE CHECKER FOR COMMUNITY RESOURCE PLANNING.] Goal Patient Goal - I NDEPENDENCE WITH FUNCTIONAL ACTIVITIES Goal Provider Goal - Goal Provider Goal - PT STG: PATIENT WILL DEMONSTRATE IMPROVED ABILITY TO PERFORM SIT TO/FROM STAND TRANSFERS TO REDUCE THE RISK OF SKIN BREAKDOWN AND REDUCE FALL RISK FROM MOD TO CGA WITHIN 4 WEEKS PT LTG: PATIENT WILL DEMONSTRATE IMPROVED ABILITY TO PERFORM SIT TO/FROM STAND TRANSFERS TO REDUCE THE RISK OF SKIN BREAKDOWN AND REDUCE FALL RISK FROM MOD TO IND WITHIN 8 WEEKS Goal Provider Goal - PT STG: PATIENT WILL DEMONSTRATE IMPROVED AMBULATION FROM UNABLE TO MIN FOR 25 FT WITH APPROPRIATE AD WITHIN 4 WEEKS. PT LTG: PATIENT WILL DEMONSTRATE IMPROVED AMBULATION FROM UNABLE TO IND FOR 150 FT WITH APPROPRIATE AD WITHIN 8 WEEKS. Goal Provider Goal - PT LTG: PATIENT WILL DEMONSTRATE REDUCED FALL RISK EVIDENCED BY TUG TEST (CUT SCORE >11 SECONDS INDICATES INCREASED FALL RISK) IMPROVING FROM UNABLE TO LESS THAN OR EQUAL TO 20 SECONDS WITHIN 8 WEEKS Goal Provider Goal - PT STG: PATIENT WILL DEMONSTRATE IMPROVEMENT ON CHAIR RISE TEST FROM 0 TO 2 INDICATING DECREASED FALL RISK WITHIN 4 WEEKS. PT LTG: PATIENT WILL DEMONSTRATE IMPROVEMENT ON CHAIR RISE TEST FROM 0 TO 5 INDICATING DECREASED FALL RISK WITHIN 8 WEEKS. PT LTG: PATIENT WILL DEMONSTRATE INDEPENDENCE AND COMPLIANCE WITH HEP WITHIN 4 WEEKS Goal Provider Goal - PT LTG: PATIENT/CAREGIVER WILL DEMONSTRATE ADHERENCE TO FALL REDUCTION SELF-MANAGEMENT AND REDUCING FALL RISK FACTORS TO MINIMIZE FALL RISK BY END OF EPISODE. Goal Provider Goal - PT GOAL: PATIENT/CAREGIVER WILL VERBALIZE UNDERSTANDING OF SIGNS AND SYMPTOMS THAT PUT THE PATIENT AT RISK FOR HOSPITALIZATION /EMERGENCY ROOM VISITS, WHEN TO NOTIFY NURSE/PHYSICIAN OF COMPLICATIONS/DECLINE AND WHEN TO CALL 911. Goal Provider Goal - PT LTG: PATIENT WILL MAINTAIN OXYGEN SATURATION WITHIN PHYSICIAN ORDERED PARAMETERS THROUGHOUT EPISODE OF CARE. Goal Provider Goal - Goal Provider Goal - Goal Provider Goal - OT STG: PATIENT WILL DEMONSTRATE IMPROVED ABILITY TO PERFORM TOILET HYGIENE AND CLOTHING ADJUSTMENT, REDUCE THE RISK OF DEVELOPING A UTI FROM MODERATE ASSISTANCE TO MINIMAL ASSISTANCE WITHIN 4 WEEKS OT LTG: PATIENT WILL DEMONSTRATE IMPROVED ABILITY TO PERFORM TOILET HYGIENE AND REDUCE THE RISK OF DEVELOPING A UTI FROM MODERATE ASSISTANCE TO CONTACT GUARD ASSISTANCE WITHIN NINE WEEKS OT STG: PATIENT WILL DEMONSTRATE IMPROVED ABILITY TO PERFORM UPPER BODY DRESSING TO REDUCE CAREGIVER BURDEN OF CARE FROM MINIMAL ASSISTANCE TO INDEPENDENT STATUS WITHIN 3 WEEKS OT STG: PATIENT WILL DEMONSTRATE IMPROVED ABILITY TO PERFORM LOWER BODY DRESSING TO REDUCE CAREGIVER BURDEN OF CARE FROM MAXIMAL ASSISTANCE TO MINIMAL ASSISTANCE WITHIN 4 WEEKS OT LTG: PATIENT WILL DEMONSTRATE IMPROVED ABILITY TO PERFORM LOWER BODY DRESSING TO REDUCE CAREGIVER BURDEN FROM MAXIMAL ASSISTANCE TO CONTACT GUARD ASSISTANCE WITHIN 9 WEEKS OT LTG: PATIENT WILL DEMONSTRATE IMPROVEMENT IN MODIFIED EMERITA INDEX SCORE FROM 44 TO 68 INDICATING DECREASED DEPENDENCY ON CAREGIVER ASSISTANCE WITH ACTIVITIES OF DAILY LIVING WITHIN 9 WEEKS OT STG: PATIENT WILL DEMONSTRATE IMPROVED ABILITY TO PERFORM BAD TO AND FROM BEDSIDE COMMODE TRANSFERS IN ORDER TO REDUCE RISK OF SKIN BREAKDOWN AND TO IMPROVE PARTICIPATION IN ADL FROM MODERATE ASSISTANCE TO CONTACT GUARD ASSISTANCE WITHIN 4 WEEKS OT LTG: PATIENT WILL DEMONSTRATE IMPROVED ABILITY TO PERFORM BED TRANSFERS IN ORDER TO REDUCE RISK OF SKIN BREAKDOWN AND TO IMPROVE PARTICIPATION IN ADLS FROM MODERATE ASSISTANCE TO STAND BY ASSISTANCE WITHIN 9 WEEKS OT STG: PATIENT WILL DEMONSTRATE IMPROVED ABILITY TO PERFORM TOILET TRANSFERS TO REDUCE TRANSFERS AND RISK OF INCONTINENCE AND UTI DEVELOPMENT FROM MODERATE A TO MINIMAL A WITHIN 4 WEEKS OT LTG: PATIENT WILL DEMONSTRATE IMPROVED ABILITY TO PERFORM TOILET TRANSFERS TO REDUCE FALL RISK AND RISK OF INCONTINENCE AND UTI DEVELOPMENT FROM MODERATE A TO CGA WITHIN 9 WEEKS OT STG: PATIENT WILL DEMONSTRATE AND PROVED ABILITY AND SAFETY TO PERFORM TUB BENCH TRANSFERS FROM MAXIMAL ASSISTANCE TO MINIMAL ASSISTANCE WITHIN 6 WEEKS OT LTG: PATIENT WILL DEMONSTRATE IMPROVED ABILITY AND SAFETY TO PERFORM BATH/SHOWER TRANSFER FROM MAXIMAL ASSISTANCE TO CONTACT GUARD ASSISTANCE WITHIN 9 WEEKS OT LTG: PATIENT WILL MAINTAIN OXYGEN SATURATION WITHIN PHYSICIAN ORDERED PARAMETERS THROUGHOUT THE EPISODE OF CARE. OT LTG: PATIENT WILL DEMONSTRATE UNDERSTANDING OF PAIN MANAGEMENT TECHNIQUES EVIDENCED BY REDUCED PAIN IN LOWER BACK FROM 08/17 TO 04/17 WITHIN 9 WEEKS OT LTG: PATIENT/CAREGIVER WILL BE ABLE TO IMPLEMENT RECOMMENDATIONS SPECIFIC TO FALL REDUCTION FOR IMPROVED ADL/IADL COMPLETION AND HOME SAFETY BY END OF EPISODE. OT LTG: PATIENT/CAREGIVER WILL BE ABLE TO IDENTIFY SIGNS OF EXACERBATION OF HEART FAILURE AND VERBALIZE / DEMONSTRATE HOW TO MANAGE SYMPTOMS AND HOW TO ADHERE TO HEART FAILURE SELF-MANAGEMENT AND LIFE-STYLE CHANGES BY END OF EPISODE. Goal Provider Goal - PATIENT / CAREGIVERS WILL DEMONSTRATE EFFECTIVE COMMUNITY RESOURCE PLANNING, EVIDENCED BY ACCEPTANCE OF ASSISTANCE FROM THOSE SERVICES FOR WHICH THEY ARE ELIGIBLE, EXTENDING THE PERIOD OF INDEPENDENCE IN THE HOME. Encounters Start Date/Time End Date/Time Encounter Type Admission Type Attending [facility] Care Department Encounter ID Discharge Date Discharge Status Discharge Condition Discharge Reason Percent Goals Met 2024-09-04 00:00:00 2024-11-02 00:00:00 Outpatient LAURITA HUTCHISON [facility] [id number]
== END 2024-09-12 00:02 | disposition home or self-care (01) ==
PROVIDERS: Emergency Provider Student in an Organized Health Care Education/Training Program
DX: J44.1 Chronic obstructive pulmonary disease with (acute) exacerbation (principal); J96.21 Acute and chronic respiratory failure with hypoxia; I11.0 Hypertensive heart disease with heart failure; I50.9 Heart failure, unspecified; E78.5 Hyperlipidemia, unspecified; I25.10 Atherosclerotic heart disease of native coronary artery without angina pectoris
CPT/HCPCS: 71045; 80053; 82803; 83880; 84484; 85025; 85378; 87636; 93005; 96360; 96375; 96376; 99285; J2919; J3475

== ENCOUNTER 2024-09-18 14:39 | Outpatient (CLI) | payer MEDICARE, SELFPAY ==
--- OUTSIDE RECORDS SUMMARY | 2024-08-21 14:15 | XMS_ITS | Encounter Summary ---
Author Organization [facility] Address [address] [place] [address] Care Team Providers Care Railroad Mechanic Name Role Phone Earl Dumont MD Primary Care Provider [phone] Reason for Visit * Reason Comments Medicare Wellness-subsequent SMW Encounter Details Date Type Department Care Team (Late st Contact Info) Description 08/21/2024 2:15 PM EDT Office Visit [facility] [address] [place] [address] Earl Dumont MD [address] [place] [address] Medicare annual wellness visit, subsequent [...] place to sleep or slept in a group home (including now)? No 10/01/2021 PHQ-2 Answer [...] BY MOUTH EVERY 6 HOURS NEEDED FOR [id number] tablet 1 ipratropium-albuterol (DUO-NEB) 0.5-2.5 mg/3 ml [...] Pneumococcal Vaccine 50+ Completed DXA SCAN Discontinued [facility] Preventative Services Quick Reference Risk Factors [...] pain, call back INB No [facility] BP stable, refilled all documented in this encounter Plan of Treatment Upcoming Encounters Date Type Department Care Team (Late st Contact Info) Description 02/19/2025 3:00 PM EST Office Visit [facility] [address] [facility] [place] [address] Earl Dumont MD [address] [place] [address] documented as of this encounter [...] documented as of this encounter Care Teams Railroad Mechanic Relationship Specialty Start Date End Date Earl Dumont MD [address] [place] [address] PCP - General Family Medicine 01/23/20 documented as of this encounter
--- OUTSIDE RECORDS SUMMARY | 2024-08-30 15:00 | XMS_ITS | Encounter Summary ---
Author Organization [facility] Address [address] [place] [address] Care Team Providers Care Telecommunications Repairer Name Role Phone Earl Dumont MD Primary Care Provider [phone] Reason for Visit * Reason Comments Muscle Pain Went to [facility] a wk ago, thinks she Pulled muscle. Had a CAT scan and Hip Pain Lft hip Encounter Details Date Type Department Care Team (Late st Contact Info) Description 08/30/2024 3:00 PM EDT Office Visit [facility] [address] [place] [address] Earl Dumont MD [address] [place] [address] Nausea and vomiting, unspecified vomiting [...] 3:00 PM EST Office Visit [facility] [address] [place] [phone] Earl Dumont MD [address] [place] [address] documented as of this encounter [...] documented as of this encounter Care Teams Telecommunications Repairer Relationship Specialty Start Date End Date Earl Dumont MD [address] [place] [address] PCP - General Family Medicine 01/23/20 documented as of this encounter
--- OUTSIDE RECORDS SUMMARY | 2024-09-18 14:41 | XMS_ITS | Encounter Summary ---
[facility] Address [address] [place] [address] Care Team Providers Care Hot Plate Plywood Press Laborer Name Role Phone Earl Dumont MD Primary Care Provider [phone] Reason for Visit * Reason Onset Date Comments Med Refill 08/22/2024 Encounter Details Date Type Department Care Team (Late st Contact Info) Description 08/22/[address] [facility] [address] [place] [address] Earl Dumont MD [address] [place] [address] Right leg pain Social History [...] to sleep or slept in a senior care (including now)? No 10/01/2021 PHQ-2 Answer Date [...] Garcia Relationship: Self Best call back number: [phone] Requested Prescriptions: Requested Prescriptions Pending Prescriptions Disp Refills Diclofenac Sodium (VOLTAREN) 1 % gel gel 50 g 1 Sig: Apply 4 g topically to the appropriate area as directed 3 (Three) Times a Day. Pharmacy where request should be sent: [id number] - [place], [place] - [address] [address] [address] [facility] - [phone] - [phone] FX Last office visit with prescribing clinician: 08/21/2024 Last telemedicine visit with prescribing clinician: Visit date not found Next office visit with prescribing clinician: 02/19/2025 Additional details provided by patient: PATIENT HAS CALLED REQUESTING A NEW PRESCRIPTION ON ABOVE MEDICATION TO BE SENT TO [facility] IN [place]. [facility] DID NOT HAVE MEDICATION IN [...] Description 02/19/2025 3:00 PM EST Office Visit [facility] [address] [place] [address] Earl Dumont MD [address] [place] [address] documented as of this encounter Visit Diagnoses Diagnosis Right leg pain Pain in soft tissues of limb documented in this encounter Additional Health Concerns Assessment Noted Time PHQ-2 Depression Total Score: 2 07/14/19 24 4:30 PM EDT documented as of this encounter Care Teams Hot Plate Plywood Press Laborer Relationship Specialty Start Date End Date Earl Dumont MD [address] [place] [address] PCP - General Family Medicine 01/23/20 documented as of this encounter
--- OUTSIDE RECORDS SUMMARY | 2024-09-18 14:41 | XMS_ITS | Encounter Summary ---
[facility] Address [address] [place] [address] Care Team Providers Care Regulatory Assistant Name Role Phone Earl Dumont MD Primary Care Provider [phone] Reason for Visit * Reason Comments Med Refill Encounter Details Date Type Department Care Team (Late st Contact Info) Description 05/08/2022 Refill [facility] [address] [facility] [place] [address] Earl Dumont MD [address] [place] [address] Generalized anxiety disorder Social History [...] Visit [facility] [address] [place] [address] Earl Dumont MD [address] [place] [address] documented as of this encounter Visit Diagnoses Diagnosis Generalized anxiety disorder documented in this encounter Care Teams Regulatory Assistant Relationship Specialty Start Date End Date Earl Dumont MD [address] [place] [address] PCP - General Family Medicine 01/23/20 documented as of this encounter
--- OUTSIDE RECORDS SUMMARY | 2024-09-18 14:41 | XMS_ITS | Encounter Summary ---
Author Organization [facility] Address [address] [place] [address] Care Team Providers Care Assistant Merchandise Manager Name Role Phone Earl Dumont MD Primary Care Provider [phone] Encounter Details Date Type Department Care Team [...] [facility] [address] [facility] [place] [address] Earl Dumont MD [address] [place] [place] [address] documented as of this encounter Visit Diagnoses Not on filedocumented in this encounter Additional Health Concerns Assessment Noted Time PHQ-2 Depression Total Score: 2 07/14/19 24 4:30 PM EDT documented as of this encounter Care Teams Assistant Merchandise Manager Relationship Specialty Start Date End Date Earl Dumont MD [address] [place] [address] PCP - General Family Medicine 01/23/20 documented as of this encounter
--- OUTSIDE RECORDS SUMMARY | 2024-09-18 14:41 | XMS_ITS | Encounter Summary ---
Author Organization [facility] Address [address] [place] [address] Care Team Providers Care Pantry Goods Maker Name Role Phone Earl Dumont MD Primary Care Provider [phone] Reason for Visit * Reason Onset Date Comments Med Refill 07/17/2024 Encounter Details Date Type Department Care Team (Late st Contact Info) Description 07/17/2024 Refill [facility] [address] [place] [address] Earl Dumont MD [address] [place] [address] Generalized anxiety disorder Social History [...] place to sleep or slept in a retirement (including now)? No 10/01/2021 PHQ-2 Answer Date [...] Garcia Relationship: Self Best call back number: [phone] Requested Prescriptions: Requested Prescriptions Pending Prescriptions Disp Refills hydrOXYzine (ATARAX) 50 MG tablet 20 tablet 1 Sig: Take 0.5-1 tablets by mouth Every 6 (Six) Hours As Needed for Anxiety. Pharmacy where request should be sent: [id number] - [facility] [place] - [address] [address] [address] AT [address] [facility] [phone] [facility] [phone] FX Last office visit with prescribing clinician: [...] [facility] [address] [facility] [place] [id number] Earl Dumont MD [address] [facility] [place] [address] documented as of this encounter Visit Diagnoses Diagnosis Generalized anxiety disorder documented in this encounter Additional Health Concerns Assessment Noted Time PHQ-2 Depression Total Score: 2 07/14/19 24 4:30 PM EDT documented as of this encounter Care Teams Pantry Goods Maker Relationship Specialty Start Date End Date Earl Dumont MD [address] [place] [address] PCP - General Family Medicine 01/23/20 documented as of this encounter
--- OUTSIDE RECORDS SUMMARY | 2024-09-18 14:41 | XMS_ITS | Encounter Summary ---
[facility] Address [address] [place] [address] Care Team Providers Care Store Manager Name Role Phone Earl Dumont MD Primary Care Provider Reason for Visit * Reason Onset Date Comments CALLBACK 08/25/2024 Encounter Details Date Type Department Care Team (Late st Contact Info) Description 08/25/2024 Telephone [facility] [address] [facility] [place] [address] Earl Dumont MD [address] [facility] [address] CALLBACK Social History Tobacco Use [...] Garcia Relationship: Self Best call back number: [phone] What was the call regarding: PATIENT STATES [...] [facility] [address] [place] [id number] Earl Dumont MD [address] [place] [address] documented as of this encounter Visit Diagnoses Not on filedocumented in this encounter Additional Health Concerns Assessment Noted Time PHQ-2 Depression Total Score: 2 07/14/19 24 4:30 PM EDT documented as of this encounter Care Teams Store Manager Relationship Specialty Start Date End Date Earl Dumont MD [address] [place] [address] PCP - General Family Medicine 01/23/20 documented as of this encounter
--- OUTSIDE RECORDS SUMMARY | 2024-09-18 14:41 | XMS_ITS | Encounter Summary ---
[facility] Address [address] [place] [address] Care Team Providers Care Ferris Wheel Operator Name Role Phone Earl Dumont MD Primary Care Provider [phone] Reason for Visit * Reason Onset Date Comments Advice Only 08/04/2024 Encounter Details Date Type Department Care Team (Late st Contact Info) Description 08/04/2024 Telephone [facility] [address] [facility] [place] [address] Earl Dumont MD [address] [facility] [place] [address] Advice Only Social History Tobacco [...] SHAKILA Relationship: Grandchild Best call back number: [phone] What is the best time to reach [...] Description 02/19/2025 3:00 PM EST Office Visit [facility] [address] [place] [id number] Earl Dumont MD [address] [facility] [place] [address] documented as of this encounter Visit Diagnoses Not on filedocumented in this encounter Additional Health Concerns Assessment Noted Time PHQ-2 Depression Total Score: 2 07/14/19 24 4:30 PM EDT documented as of this encounter Care Teams Ferris Wheel Operator Relationship Specialty Start Date End Date Earl Dumont MD [address] [place] [address] PCP - General Family Medicine 01/23/20 documented as of this encounter
--- OUTSIDE RECORDS SUMMARY | 2024-09-18 14:41 | XMS_ITS | Encounter Summary ---
Author Organization [facility] Address [address] [place] [address] Care Team Providers Care Cash Accountant Name Role Phone Earl Dumont MD Primary Care Provider [phone] Reason for Visit * Reason Comments Med Refill Encounter Details Date Type Department Care Team (Late st Contact Info) Description 08/29/2024 Refill [facility] MEDICINE [address] [facility] [place] [place] [address] Earl Dumont MD [address] [facility] [place] [place] [address] Social History Tobacco Use Types [...] Description 02/19/2025 3:00 PM EST Office Visit [facility] [address] [place] [address] Earl Dumont MD [address] [place] [address] documented as of this encounter Visit Diagnoses Not on filedocumented in this encounter Additional Health Concerns Assessment Noted Time PHQ-2 Depression Total Score: 2 07/14/19 24 4:30 PM EDT documented as of this encounter Care Teams Cash Accountant Relationship Specialty Start Date End Date Earl Dumont MD [address] [place] [address] PCP - General Family Medicine 01/23/20 documented as of this encounter
--- OUTSIDE RECORDS SUMMARY | 2024-09-18 14:41 | XMS_ITS | Encounter Summary ---
Author Organization [facility] Address [address] [place] [address] Care Team Providers Care Business Law Teacher Name Role Phone Earl Dumont MD Primary Care Provider [phone] Reason for Visit * Reason Onset Date Comments Advice Only 07/28/2024 Encounter Details Date Type Department Care Team (Late st Contact Info) Description 07/28/2024 Telephone [facility] MEDICINE [address] [facility] [place] [address] Earl Dumont MD [address] [facility] [place] [address] Advice Only Social History Tobacco [...] Description 02/19/2025 3:00 PM EST Office Visit [facility] [address] [place] [address] Earl Dumont MD [address] [place] [address] documented as of this encounter Visit Diagnoses Not on filedocumented in this encounter Additional Health Concerns Assessment Noted Time PHQ-2 Depression Total Score: 2 07/14/19 24 4:30 PM EDT documented as of this encounter Care Teams Business Law Teacher Relationship Specialty Start Date End Date Earl Dumont MD [address] [place] [address] PCP - General Family Medicine 01/23/20 documented as of this encounter
--- OUTSIDE RECORDS SUMMARY | 2024-09-18 14:41 | XMS_ITS | Encounter Summary ---
Author Organization [facility] Address [address] [place] [address] Care Team Providers Care Musical Instrument Maker Name Role Phone Earl Dumont MD Primary Care Provider [phone] Encounter Details Date Type Department Care Team [...] Description 02/19/2025 3:00 PM EST Office Visit [facility] [address] [place] [address] Earl Dumont MD [address] [place] [address] documented as of this encounter Visit Diagnoses Not on filedocumented in this encounter Additional Health Concerns Assessment Noted Time PHQ-2 Depression Total Score: 2 07/14/19 24 4:30 PM EDT documented as of this encounter Care Teams Musical Instrument Maker Relationship Specialty Start Date End Date Earl Dumont MD [address] [place] [address] PCP - General Family Medicine 01/23/20 documented as of this encounter
--- OUTSIDE RECORDS SUMMARY | 2024-09-18 14:42 | XMS_ITS | Clinical Summary ---
Author Organization [facility] Address [address] [place] [address] Care Team Providers Care Shoe Salesman Name Role Phone Earl Dumont MD Primary Care Provider [phone] Allergies Active Allergy Reactions Criticality Noted Date [...] Description 08/30/2024 3:00 PM EDT Office Visit [facility] [address] [place] [address] Earl Dumont MD Nausea and vomiting, unspecified vomiting type (Primary Dx); Right leg pain; Pain of right lower extremity; Chronic obstructive pulmonary disease with (acute) lower respiratory infection; CO2 retention 08/30/2024 Travel 08/29/2024 Refill [facility] [address] [address] Earl Dumont MD 08/28/2024 Telephone [facility] [address] [place] [address] Earl Dumont MD HOME HEALTH REFERRAL NEEDED 08/25/2024 Telephone [facility] [address] [facility] [place] [place] [address] Earl Dumont MD CALLBACK 08/22/2024 Refill [facility] [address] [place] [address] Earl Dumont MD Right leg pain 08/21/2024 2:15 PM EDT Office Visit [facility] [address] [facility] [place] [address] Earl Dumont MD Medicare annual wellness visit, subsequent (Primary Dx); Right leg pain; Essential hypertension; Diastolic dysfunction with chronic heart failure; Acquired hypothyroidism; Age-related osteoporosis without current pathological fracture; Generalized anxiety disorder; Recurrent major depressive disorder, in full remission; History of pulmonary embolism; Multiple subsegmental pulmonary emboli without acute cor pulmonale; Hypercholesterolemia; Lower extremity edema; Memory change 08/21/2024 Travel 08/04/2024 [facility] [address] [facility] [place] [address] Earl Dumont MD Advice Only 07/28/2024 [facility] [address] [facility] [place] [address] Earl Dumont MD Advice Only 07/17/2024 Refill [facility] [address] [facility] [place] [address] Earl Dumont MD Generalized anxiety disorder 07/17/2024 Refill [facility] [address] [facility] [place] [address] Earl Dumont MD Generalized anxiety disorder 07/07/2024 [facility] [address] [facility] [place] [address] Earl Dumont MD OT 07/06/2024 [facility] [address] [facility] [place] [address] Earl Dumont MD Advice Only 07/05/2024 [facility] [address] [facility] [place] [address] Earl Dumont MD ORDER REQUEST 07/05/2024 [facility] [address] [facility] [place] [address] Earl Dumont MD New Med Request 07/05/2024 [facility] [address] [facility] [place] [address] Earl Dumont MD MEDICATION REQUEST 06/30/2024 [facility] [address] [facility] [place] [address] Earl Dumont MD REQUEST CALL BACK FROM NURSE 06/26/2024 12:30 PM EDT Office Visit [facility] [address] [facility] [place] [address] Earl Dumont MD Chronic idiopathic constipation (Primary [...] remission; Primary insomnia 06/26/2024 Travel 06/21/2024 Refill [facility] [address] [place] [address] Earl Dumont MD Memory change from Last 3 [...] place to sleep or slept in a half-way (including now)? No 10/01/2021 PHQ-2 Answer Date [...] Visit [facility] [address] [place] [address] Earl Dumont MD [address] [place] [address] Health Maintenance Due Date Last [...] SCAN Discontinued Medical Devices Implanted Type Area Scrap Wheeler Device Identifier Shelf Expiration Date Model / Serial / Lot [employer] Bone Simplex/P Full Dose 10/Pk - [id number] Implanted:Qty : 1 on 08/28/2021 by Nilesh Hare MD at [facility] Implant Left: Knee MARTÍN DEWEY [id number] 09/08/2023 [id number] / / [id number] [employer] Bone Simplex/P Full Dose 10/Pk - [id number] Implanted:Qty : 1 on 08/28/2021 by Nilesh Hare MD at [facility] Implant Left: Knee MARTÍN DEWEY 11/08/2023 [id number] / / [id number] Dev Contrl Tiss Stratafix Spiral Pdo Bidir 1 [id number] - [id number] Implanted:Qty : 1 on 08/28/2021 by Nilesh Hare MD at [facility] Implant Left: Knee [employer] J 06/07/2026 [id number] / / [id number] Insrt Tib/Kn Triath Ps A/Poly Sz4 9mm - [id number] Implanted:Qty : 1 on 08/28/2021 by Nilesh Hare MD at [facility] Implant Left: Knee MARTÍN DEWEY [id number] 12/27/2021 [id number] / / [id number] Fem Triath Ps Cmt No4 Lt - [id number] Implanted:Qty : 1 on 08/28/2021 by Nilesh Hare MD at [facility] Implant Left: Knee MARTÍN DEWEY [id number] 06/18/2025 [id number] / / [id number] Peg Fem Fix Triathlon Dist Mod Pk/2 - [id number] Implanted:Qty : 1 on 08/28/2021 by Nilesh Hare MD at [facility] Implant Left: Knee MARTÍN DEWEY [id number] 06/01/2025 [id number] / / [id number] Pat Triath Asym X3 [id number] - [id number] Implanted:Qty : 1 on 08/28/2021 by Nilesh Hare MD at [facility] Implant Left: Knee MARTÍN DEWEY [id number] 06/21/2026 [id number] / / [id number] Totl Kn Med Demand Martín - [id number] Implanted:Qty : 1 on 08/28/2021 by Nilesh Hare MD at [facility] Implant Left: Knee MARTÍN DEWEY [id number] [...] AM EDT Performed at: 01 - [facility] [address] [id number] Ironer Sock: Osito Cabezas PhD, Phone: [phone] Patient Fasting: N us Earl Dumont MD LAB BLOOD ORDERABLES Final Resu lt [facility] (AMBULATORY) [address] [place] [address], [place] [phone] [facility] [address] [place] [address], [place] [phone] from Last 3 Months or Most Recently [...] Of Support Discussed With: Patient Care Teams Shoe Salesman Relationship Specialty Start Date End Date Earl Dumnot MD [place] [address] PCP - General Family Medicine 01/23/20
--- OUTSIDE RECORDS SUMMARY | 2024-09-18 14:42 | XMS_ITS | Encounter Summary ---
[facility] Address [address] [place] [address] Care Team Providers Care Clammer Name Role Phone Earl Dumont MD Primary Care Provider [phone] Reason for Visit * Reason Comments Med Refill Encounter Details Date Type Department Care Team (Late st Contact Info) Description 04/10/2022 Refill [facility] MEDIC[facility] [address] [facility] [place] [address] Earl Dumont MD [address] [facility] [place] [address] Essential hypertension Social History Tobacco [...] in a snf (including now)? No 10/01/2021 Comments No Sex [...] [facility] [address] [place] [place] [address] Earl Dumont MD [address] [place] [address] documented as of this encounter Visit Diagnoses Diagnosis Essential hypertension Unspecified essential hypertension documented in this encounter Additional Health Concerns Assessment Noted Time PHQ-2 Depression Total Score: 1 04/26/19 22 2:42 PM EDT documented as of this encounter Care Teams Clammer Relationship Specialty Start Date End Date Earl Dumont MD [address] [place] [place] [address] PCP - General Family Medicine 01/23/20 documented as of this encounter
--- OUTSIDE RECORDS SUMMARY | 2024-09-18 14:42 | XMS_ITS | Encounter Summary ---
[facility] Address [address] [place] [address] Care Team Providers Care Logistics Support Name Role Phone Earl Gomez MD Primary Care Provider [phone] Reason for Referral * Home Health (Routine) - Closed Specialty Diagnoses / Procedures Referred By Demario t Referred To Contact Home Health Services Diagnoses Chronic heart failure with preserved ejection fraction Status post total left knee replacement COPD with exacerbation Chronic back pain, unspecified back location, unspecified back pain laterality Procedures WI OFFICE/OUTPATIENT NEW MODERATE MDM 45 MINUTES Earl Gomez MD [address] [facility] [address] Phone: tel: fax: [facility] [place] [address] [place] [address] Phone: tel: fax: Referral ID Status Reason Start Date Expiration Date V isits Requested Visits Authorized [id number] Closed Specialty Services Required 08/28/2024 11/27/[phone] Reason for Visit * Reason Onset Date Comments HOME HEALTH REFERRAL NEEDED 08/28/2024 Encounter Details Date Type Department Care Team (Late st Contact Info) Description 08/28/2024 Telephone [facility] FAMILY MEDICINE [address] [facility] [place] [address] Earl Gomez MD [address] [facility] [place] [address] HOME HEALTH REFERRAL NEEDED Social History Tobacco [...] WITH [facility] STATED PATIENT WAS D/C FROM ON LICENSE OF [facility] ON 08/21 AND WAS SENT TO [facility] AND SHE WANTS TO CONTINUE WITH [facility]. KIRIT IS NEEDING A REFERRAL FROM DR GOMEZ.SHE IS NEEDING PT AND OT documented in this encounter Plan of Treatment Upcoming Encounters Date Type Department Care Team (Late st Contact Info) Description 02/19/2025 3:00 PM EST Office Visit [facility] MEDICINE [address] [facility] [place] [address] Earl Gomez MD [address] [facility] [place] [address] documented as of this encounter [...] documented as of this encounter Care Teams Logistics Support Relationship Specialty Start Date End Date Earl Gomez MD [address] [place] [address] PCP - General Family Medicine 01/23/20 documented as of this encounter
[2024-09-18 15:30] VITALS: PULSE 66; PULSE 70
[2024-09-18] MEDS: ALBUTEROL 0.083% 2.5 MG/3 ML NEB IH (15:30)
--- OUTSIDE RECORDS SUMMARY | 2024-09-18 15:41 | XMS_ITS | CCD ---
Author Organization Unknown Care Team Providers Care Size Cutter Name Role Phone Non Engaged, [facility] Primary Care Provider Unav ailable Unavailable Chronic Care Management Unavaila ble Summary Purpose DataExchange Insurance Providers Payer name Policy type / Coverage type Covered democrat ID Effective Begin Date Effective End Date [facility] [id number] Unknown Unknown Family History Family History data not found Medication Administered No Medication Administered data Reason For Visit No Reason For Visit data Medical Equipment No Medical Equipment data Advance Directives No Advance Directive data
--- OUTSIDE RECORDS SUMMARY | 2024-09-18 15:41 | XMS_ITS | CCD ---
Author Organization Unknown Care Team Providers Care Tug Boat Engineer Name Role Phone Non Engaged, [facility] Primary Care Provider Unav ailable Unavailable Chronic Care Management Unavaila ble Summary Purpose DataExchange Insurance Providers Payer name Policy type / Coverage type Covered alliance party ID Effective Begin Date Effective End Date [facility] [id number] Unknown Unknown Family History Family History data not found Medication Administered No Medication Administered data Reason For Visit No Reason For Visit data Medical Equipment No Medical Equipment data Advance Directives No Advance Directive data
== END 2024-09-18 23:59 | disposition home or self-care (01) ==
LOC: RT 14:39
PROVIDERS: PCP Family Medicine; Visit Provider Internal Medicine Pulmonary Disease
DX: J44.9 Chronic obstructive pulmonary disease, unspecified (principal); R94.2 Abnormal results of pulmonary function studies
CPT/HCPCS: 94010; 94640; 94727; 94729

== ENCOUNTER 2024-11-20 11:52 | Emergency (ER) | payer MEDICARE, SELFPAY ==
[2024-11-20] VITALS (11 sets, daily range): BP systolic 99–189; BP diastolic 57–94; PULSE 63–79; RESP 18–21; TEMP 36.9–37.2; O2SAT 90–97; BMI 39.6
--- NOTE | 2024-11-20 12:06 | ED_ITS ---
<Statement entered by Андрей Felix MD - 11/20/24 21:08> I was consulted by the CARLIE, and we discussed the complexity of problems being addressed. I approved the treatment and management plan for this patient's care in the emergency department, thus performing a substantial portion of the medical decision making. Андрей Felix MD Discharge Plan Disposition Patient Disposition: Home, Self-Care Condition: Good Prescriptions Prescriptions: New cyclobenzaprine 10 mg tablet 10 mg PO TID PRN (Reason: muscle spasm) Qty: 15 0RF No Action tramadol 50 mg tablet 50 mg PO BID Patient Comments: TAKE 1 TABLET BY MOUTH TWICE A DAY IF NEEDED FOR LEG PAIN valsartan 40 mg tablet 40 mg PO BID Patient Comments: TAKE 1 TABLET BY MOUTH TWICE DAILY ipratropium-albuterol 0.5 mg-3 mg(2.5 mg base)/3 mL solution for nebulization 3 ml inhalation QID PRN (Reason: shortness of breath or wheezing) 90 Days Qty: 270 2RF albuterol sulfate [Ventolin HFA] 90 mcg/actuation HFA aerosol inhaler 2 inh inhalation QID PRN (Reason: shortness of breath or wheezing) 90 Days Qty: 8.5 3RF Trelegy Ellipta 100-62.5-25 mcg blister with device 1 inh inhalation DAILY 90 Days Qty: 90 2RF alendronate 70 mg tablet 70 mg PO WEEKLY atorvastatin 40 mg Tablet 40 mg PO HS 30 Days Qty: 30 0RF furosemide 40 mg tablet 20 mg PO BIDL 30 Days Qty: 30 0RF fluticasone propion-salmeterol 250-50 mcg/dose blister with device 1 ea INHALATION BIDRT 30 Days Qty: 60 0RF amiodarone 200 mg Tablet 400 mg PO BID 30 Days Qty: 120 0RF donepezil 10 mg tablet 10 mg PO HS 30 Days Qty: 30 0RF hydroxyzine HCl 50 mg tablet 50 mg PO Q6HP PRN (Reason: Anxiety) 30 Days Qty: 90 0RF Patient Comments: TAKE 1/2 TO 1 TABLET BY MOUTH EVERY 6 HOURS NEEDED FOR ANXIETY buspirone 30 mg tablet 30 mg PO BID 30 Days Qty: 60 0RF levothyroxine 125 mcg tablet 125 mcg PO DAILYDM 30 Days Qty: 30 0RF docusate sodium [Stool Softener] 100 mg capsule 100 mg PO BID 30 Days Qty: 60 0RF albuterol sulfate [Ventolin HFA] 90 mcg/actuation HFA aerosol inhaler 2 puff inhalation Q4HP PRN (Reason: shortness of breath or wheezing) 30 Days Qty: 8.5 0RF duloxetine 60 mg capsule,delayed release(DR/EC) 60 mg PO DAILY Qty: 30 0RF Eliquis 5 mg tablet 5 mg PO BID Qty: 180 2RF dapagliflozin propanediol [Farxiga] 10 mg Tablet 10 mg PO DAILY 30 Days Qty: 30 0RF azithromycin 250 mg tablet 250 mg PO DAILY 4 Days Qty: 4 0RF Rx Instructions: start on day 2 of therapy (day after ED visit) amoxicillin-pot clavulanate 875-125 mg tablet 1 tab PO BID 7 Days Qty: 14 0RF Referrals Follow up/Referrals: Provider,Referral, MD [Primary Care Provider, Medical] - See instructions Activity Restrictions/Add. Instructions Additional Instructions/Restrictions: You were evaluated on an emergency basis. It is very important that you follow- up with your primary care provider and any specialist who we discussed within the next 2 days in order to better assess your health more comprehensively. For example, incidental findings on imaging or laboratory results that were performed today may be discovered, which do not require immediate medical care, but may impact your health in the future. If your symptoms worsen or persist, please return to the emergency department immediately for reassessment. Take all medications as prescribed. In queue for allowing me to participate in your health care, and I hope you feel better soon. Clinical Impressions Clinical Impression: Fracture of lumbar spine without cord injury Instructions Patient Instructions: DI for Low Back Pain, DI for Vertebral Fracture Print Language Print Language: Brazilian Discharge ED Provider: Андрей Felix Adult HPI <Florencia Downing - Last Filed: 11/20/24 17:55> General Chief complaint: Back Pain/Injury Stated complaint: fell on 11/12, back pain Time Seen by Provider: 11/20/24 12:04 Mode of Arrival: Wheelchair Source of Information: Patient and Relative Description of Symptoms (Recalled from ER Triage Doc. by RN): Pt had a fall on Nov.12 resulting in lower back pain that has progressively gotten worse since. Pt states she just fell on her tailbone, no head injury, no loss of conciousness. History of Present Illness HPI narrative: 79-year-old female with a history of COPD, heart failure, A-fib presents emergency department with complaints of pain to her lower back after falling on November 12. He states that she tripped over the him of her pants and fell landing on her bottom. She states that she has had pain in her lower back that has not improved since that time. She reports taking Tylenol for pain relief without relief of symptoms. She also complains of nausea that started and route to the ER today. She wears 2 L via nasal cannula at baseline. She reports that she has had an increase in productive cough recently. She denies fevers or chest pain. Related Data Home Medications ?Medication ?Instructions ?Recorded ?Confirmed alendronate 70 mg tablet 70 mg PO WEEKLY 02/12/2402/01 Held on 08/09/24. Instructions: until back home tramadol 50 mg tablet 50 mg PO BID 09/19/24 valsartan 40 mg tablet 40 mg PO BID 09/19/24 Previous Rx's ?Medication ?Instructions ?Recorded atorvastatin 40 mg tablet 40 mg PO HS 30 days #30 tabs 02/15/24 albuterol sulfate 90 mcg/actuation 2 puff inhalation Q 4HP PRN 08/09/24 aerosol inhaler (Ventolin HFA) shortness of breath or wheezing 30 days #8.5 grams amiodarone 200 mg tablet 400 mg (2 x 200 mg) PO BID 3 0 days 08/09/24 #120 tabs apixaban 5 mg tablet (Eliquis) 5 mg PO BID #180 tabs 0 08/09/24 buspirone 30 mg tablet 30 mg PO BID 30 days #60 tab s 08/09/24 dapagliflozin propanediol 10 mg 10 mg PO DAILY 30 days #30 tabs 08/09/24 tablet (Farxiga) docusate sodium 100 mg capsule 100 mg PO BID 30 days # 60 caps 08/09/24 (Stool Softener) donepezil 10 mg tablet 10 mg PO HS 30 days #30 tabs 08/09/24 duloxetine 60 mg capsule,delayed 60 mg PO DAILY #30 ca ps 08/09/24 release fluticasone 250 mcg-salmeterol 50 1 ea inhalation BIDR T 30 days #60 08/09/24 mcg/dose blistr powdr for ea inhalation furosemide 40 mg tablet 20 mg (1/2 x 40 mg) PO BIDL 30 08/09/24 days #30 tabs hydroxyzine HCl 50 mg tablet 50 mg PO Q6HP PRN Anxiety 30 days 08/09/24 #90 tabs levothyroxine 125 mcg tablet 125 mcg PO DAILYDM 30 day s #30 tabs 08/09/24 amoxicillin 875 mg-potassium 1 tab PO BID 7 days #14 t abs 09/11/24 clavulanate 125 mg tablet azithromycin 250 mg tablet 250 mg PO DAILY 4 days #4 t abs 09/11/24 albuterol sulfate 90 mcg/actuation 2 inh inhalation QI D PRN shortness 09/19/24 aerosol inhaler (Ventolin HFA) of breath or wheezing 9 0 days #8.5 grams ipratropium 0.5 mg-albuterol 3 mg 3 ml inhalation QID PRN shortness 09/19/24 (2.5 mg base)/3 mL nebulization of breath or wheezing 90 days #270 soln mL fluticasone fur. 100 mcg-umeclid 1 inh inhalation ELMER Y 90 days #90 10/26/24 62.5 mcg-vilant 25 mcg ea inhalat.powder (Trelegy Ellipta) cyclobenzaprine 10 mg tablet 10 mg PO TID PRN muscle s pasm #15 11/20/24 tabs Allergies Allergy/AdvReac Type Severity Reaction Status Date / Time sulfamethoxazole (From AdvReac Mild Nausea Verified 09/19/24 13:13 Bactrim) trimethoprim (From Bactrim) AdvReac Mild Nausea Verified 09/19/24 13:13 [facility] <Florencia Downing - Last Filed: 11/20/24 17:55> [facility] Disclaimer: The information contained in this section may have been updated after the patient was seen, as this information can be updated by other users. Medical History Acute on chronic respiratory failure with hypoxia and hypercapnia Acute on chronic respiratory failure with hypoxemia Acute on chronic heart failure with preserved ejection fraction (HFpEF) Depression Anxiety Pulmonary embolism Osteoarthritis Skin cancer SOB (shortness of breath) on exertion Abnormal echocardiogram Hyperlipidemia (HFpEF) heart failure with preserved ejection fraction CAD (coronary artery disease) HTN (hypertension) Heart failure Elevated troponin Chronic respiratory failure with hypoxia History of COPD Second hand smoke exposure Surgical History History of left knee replacement Family History Other No significant family history Social History Smoking Status: Never smoker alcohol intake: never current occupational status: retired Travel in the last 8 weeks?: None Have you lived/traveled outside [place] in past 30 days?: No Contact w/someone who lives/traveled outside [place] past 30 days?: No Exposure to someone with infectious disease in past 14 days?: No Do you have a fever (greater than 100.4 F or 38 C)?: No Have you tested positive for COVID-19?: No Exposed to someone with COVID-19 in past 14 days?: No Do you have a sore throat?: No Do you have a cough?: No Do you have any weakness?: No Do you have any diarrhea?: No Are you experiencing any unusual bleeding?: No Do you have any muscle aches/pain?: No Do you have any abdominal pain?: No Are you experiencing loss of taste or smell?: No Other Medical History Have you received the Flu Vaccine for this season: No Have you received the Pneumonia Vaccine: Yes <Florencia Chang - Last Filed: 11/20/24 17:55> ROS Obtained: Yes other Respiratory Respiratory: Reports cough with sputum production Gastrointestinal Gastrointestingal: Reports nausea Musculoskeletal Musculoskeletal: Reports back pain Physical Exam <Florencia Chang - Last Filed: 11/20/24 17:55> Narrative Physical exam: General: Awake, aware, in no acute distress HEENT: Normocephalic, no evidence of trauma CV: RRR, no murmurs, rubs, or gallops, 1+ pitting edema to bilateral lower extremities. Pulm: CTA bilaterally with no rhonchi, rales, wheezes ABD: Nontender, no swelling, guarding, or rebound tenderness Psych, appropriate mood and affect Musculoskeletal: Sensations intact with 2+ pulses as well as 5 out of 5 strength in all extremities. General General appearance: alert Respiratory Respiratory exam: Present wheezes Cardiovascular Cardiovascular exam: Present regular rate Back Exam Back exam: Present tenderness Back 1 view image: 2 1. Tenderness on palpation Neurological Exam Neurological exam: Present alert Medical Decision Making <Florencia Downing - Last Filed: 11/20/24 17:55> Medical Records Screening: Per USPSTF and CDC recommendations, given the prevalence of disease in our region, it is our hospital?s policy to screen for HIV and viral Hepatitis for all patients aged 18 and over and those with ongoing risk factors. [place] Inquiry Pt receiving controlled substance: No Vital Signs: 11/20/24 11:55 11/20/24 12:31 11/20/24 13:01 Temperature 98.9 F Temperature Source Oral Pulse Rate 63 70 Pulse Rate [Right Radial] 79 Respiratory Rate 21 18 Blood Pressure 182/72 H 144/79 H Blood Pressure [Right Arm] 176/64 H Blood Pressure Mean 101 Blood Pressure Mean [Right Arm] 101 Blood Pressure Source [Right Arm] Automatic Cuff Blood Pressure Position [Right Arm] Sitting 02 Sat by Pulse Oximetry 96 97 90 L Oxygen Delivery Method Nasal Cannula Nasal Cannula Nasal Cannula Oxygen Flow Rate (LPM) 2 2 3 11/20/24 13:30 11/20/24 14:00 11/20/24 14:30 Temperature Temperature Source Pulse Rate 69 71 75 Pulse Rate [Right Radial] Respiratory Rate Blood Pressure 177/57 H 115/70 139/87 Blood Pressure [Right Arm] Blood Pressure Mean Blood Pressure Mean [Right Arm] Blood Pressure Source [Right Arm] Blood Pressure Position [Right Arm] 02 Sat by Pulse Oximetry 92 L 91 L 91 L Oxygen Delivery Method Nasal Cannula Nasal Cannula Nasal Cannula Oxygen Flow Rate (LPM) 3 3 3 11/20/24 15:01 11/20/24 16:01 11/20/24 16:30 Temperature Temperature Source Pulse Rate 75 68 Pulse Rate [Right Radial] Respiratory Rate Blood Pressure 166/80 H 99/66 L 103/82 L Blood Pressure [Right Arm] Blood Pressure Mean 77 86 Blood Pressure Mean [Right Arm] Blood Pressure Source [Right Arm] Blood Pressure Position [Right Arm] 02 Sat by Pulse Oximetry 96 96 Oxygen Delivery Method Nasal Cannula Nasal Cannula Oxygen Flow Rate (LPM) 3 3 11/20/24 17:01 Temperature Temperature Source Pulse Rate 68 Pulse Rate [Right Radial] Respiratory Rate Blood Pressure 168/57 H Blood Pressure [Right Arm] Blood Pressure Mean 80 Blood Pressure Mean [Right Arm] Blood Pressure Source [Right Arm] Blood Pressure Position [Right Arm] 02 Sat by Pulse Oximetry 94 L Oxygen Delivery Method Oxygen Flow Rate (LPM) Lab Data Lab Results 11/20/24 12:30: WBC 6.3, RBC 3.57 L, Hgb 9.6 L, Hct 31.9 L, MCV 89.4, MCH 26.9 L , MCHC 30.1 L, RDW 17.4, Plt Count 192, MPV 10.7 H, Neut % (Auto) 61.6, Lymph % (Auto) 23.2, [place] % (Auto) 11.1 H, Eos % (Auto) 2.7, Baso % (Auto) 1.1, Neut # (Auto) 3.9, Lymph # (Auto) 1.5, [place] # (Auto) 0.7, Eos # (Auto) 0.2, Baso # (Auto) 0.1, Sodium 137, Potassium 3.8, Chloride 93 L, Carbon Dioxide 39 H, Anion Gap 8.8, BUN 9, Creatinine 0.70, Estimated Creat Clear 72, Estimated GFR 81, Est GFR ( Amer) 97, Glucose 76, Calcium 8.3 L, Magnesium 2.0, Total Bilirubin 0.3, AST 28, ALT 18, Alkaline Phosphatase 95, Troponin I 0.03, NT-Pro-B Natriuret Pep 1150 H, Total Protein 5.9 L, Albumin 3.1 L, Globulin 2.8, Albumin/Globulin Ratio 1.1 11/20/24 16:49: Troponin I 0.02 11/20/24 12:30 11/20/24 12:30 Orders (Tests/Meds): ED MEDICATIONS Discontinued Medications Generic Name Dose Route Start Last Admin Trade Name Yumiko PRN Reason Stop Dose Admin Hydrocodone Bitart/Acetaminophen 1 tab 11/20/24 12:17 11/20/24 12:29 Hydrocodone/Apap 5/325 Mg Tablet PO 11/20/24 12:18 1 tab ONCE ONE Administration Albuterol/Ipratropium 3 ml 11/20/24 12:14 11/20/24 12:29 Ipratropium/Albuterol 3 Ml Neb 11/20/24 12:15 3 ml ONCE ONE Administration Morphine Sulfate 4 mg 11/20/24 15:16 11/20/24 15:24 Morphine 4mg/Ml Syringe IV 11/20/24 15:17 4 mg ONCE ONE Administration Ondansetron HCl 4 mg 11/20/24 12:14 11/20/24 12:29 Ondansetron 4mg/2ml Vial IV 11/20/24 12:15 4 mg ONCE ONE Administration Promethazine HCl 25 mg 11/20/24 13:06 11/20/24 13:13 Promethazine Hcl 25mg/Ml 1ml Vial IV 11/20/24 13:07 25 mg ONCE ONE Administration Sodium Chloride 25 ml 11/20/24 13:06 11/20/24 13:22 Sodium Chloride 0.9% 25ml Bag IV 11/20/24 13:07 Not Given ONCE ONE ORDERS Category Date Time Status CT lumbar spine wo con Stat Cat Scan 11/20/24 12:14 Completed XR chest portable Stat Exams 11/20/24 12:14 Completed BNP [NT Pro Brain Natriuretic Pep.] Stat Lab 11/20/24 12:30 Completed CBC w/Auto Diff [Complete Blood Count Auto Diff] Stat Lab 11/20/24 12:30 Completed CMP [Comprehensive Metabolic Panel] Stat Lab 11/20/24 12:30 Completed Magnesium Stat Lab 11/20/24 12:30 Completed Troponin I Q3H Lab 11/20/24 16:49 Completed Troponin I Q3H Lab 11/20/24 18:30 Ordered Troponin I Stat Lab 11/20/24 12:30 Completed Medical Decision Narrative: Initial impression of presenting illness: 79-year-old female presents emergency department with complaints of pain to her lower back after falling on November 12. She reports that she tripped over the hip over her pants and has had pain in her lumbar area since that time. She reports taking Tylenol without relief of symptoms. She also has a history of COPD, heart failure, A-fib. She wears 2 L via nasal cannula at baseline. She reports that she has had an increase in productive cough. She also reports that she started feeling nauseous and route to the ER today. They deny fevers. Differential diagnosis includes but is not limited to: Musculoskeletal strain, herniated disc, degenerative disc disease, vertebral fracture, COPD exacerbation, heart failure exacerbation, pneumonia Patient arrives hemodynamically stable, afebrile, without respiratory distress with vital signs interpreted by myself. Initial physical exam reveals tenderness on palpation of lumbar spine. Patient is intact with 2+ pulses and 5 out of 5 strength. Patient alert and oriented with no focal logical deficits. Soft nontender with normal active bowel sounds. Patient with frequent productive coughing during the exam. Appears to be coughing up white thick phlegm. She also has 1+ pitting edema to bilateral lower extremities. Rest of exam is unremarkable. Initial diagnostic plan: Heart failure workup, [place] for pain, CT of lumbar spine Results from initial plan were reviewed and interpreted by myself, pertinent positives include: Laboratory studies including serial troponins were nonactionable. Chest x-ray shows left lung base opacity concerning for atelectasis. CT of lumbar spine shows subtle superior endplate fracture of L2 Interventions in the ED: Patient was given Percocet initially for pain control however she continued to complain of pain. She was then given 1 dose of IV morphine. 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 In addition she was given a DuoNeb. Supplemental oxygen was applied the patient to maintain SpO2 reading greater than 90%. Patient was made aware of the results and the findings, upon reevaluation patient has remained stable throughout stay, symptoms have improved. Upon reevaluation patient states her pain has decreased. Patient is maintaining her SpO2 on her home oxygen requirement of 2 to 2-1/2 L. Disposition: Reviewed findings today's workup with patient informed her that she does have an L2 endplate fracture. I offered patient admission for pain control as she reports she is having difficulty ambulating and doing her ADLs. States she does not want to be admitted and would like to be discharged home. She reports that she does have a caregiver that can be with her 31/08 while she is recovering from this injury. Formed her that we will discharge with a prescription for Flexeril. Recommend that she continue with Tylenol pain control as well. To her to return to the emergency department any new or worsening symptoms. Patient is agreeable to plan of care. Patient made aware of findings and had a detailed discussion with symptomatic care and return precautions, patient voiced understanding. <Андрей Felix MD - Last Filed: 11/20/24 15:30> Vital Signs: 11/20/24 11:55 11/20/24 12:31 11/20/24 13:01 Temperature 98.9 F Temperature Source Oral Pulse Rate 63 70 Pulse Rate [Right Radial] 79 Respiratory Rate 21 18 Blood Pressure 182/72 H 144/79 H Blood Pressure [Right Arm] 176/64 H Blood Pressure Mean 101 Blood Pressure Mean [Right Arm] 101 Blood Pressure Source [Right Arm] Automatic Cuff Blood Pressure Position [Right Arm] Sitting 02 Sat by Pulse Oximetry 96 97 90 L Oxygen Delivery Method Nasal Cannula Nasal Cannula Nasal Cannula Oxygen Flow Rate (LPM) 2 2 3 11/20/24 13:30 11/20/24 14:00 11/20/24 14:30 Temperature Temperature Source Pulse Rate 69 71 75 Pulse Rate [Right Radial] Respiratory Rate Blood Pressure 177/57 H 115/70 139/87 Blood Pressure [Right Arm] Blood Pressure Mean Blood Pressure Mean [Right Arm] Blood Pressure Source [Right Arm] Blood Pressure Position [Right Arm] 02 Sat by Pulse Oximetry 92 L 91 L 91 L Oxygen Delivery Method Nasal Cannula Nasal Cannula Nasal Cannula Oxygen Flow Rate (LPM) 3 3 3 11/20/24 15:01 11/20/24 16:01 11/20/24 16:30 Temperature Temperature Source Pulse Rate 75 68 Pulse Rate [Right Radial] Respiratory Rate Blood Pressure 166/80 H 99/66 L 103/82 L Blood Pressure [Right Arm] Blood Pressure Mean 77 86 Blood Pressure Mean [Right Arm] Blood Pressure Source [Right Arm] Blood Pressure Position [Right Arm] 02 Sat by Pulse Oximetry 96 96 Oxygen Delivery Method Nasal Cannula Nasal Cannula Oxygen Flow Rate (LPM) 3 3 11/20/24 17:01 Temperature Temperature Source Pulse Rate 68 Pulse Rate [Right Radial] Respiratory Rate Blood Pressure 168/57 H Blood Pressure [Right Arm] Blood Pressure Mean 80 Blood Pressure Mean [Right Arm] Blood Pressure Source [Right Arm] Blood Pressure Position [Right Arm] 02 Sat by Pulse Oximetry 94 L Oxygen Delivery Method Oxygen Flow Rate (LPM) Lab Data Lab Results 11/20/24 12:30: WBC 6.3, RBC 3.57 L, Hgb 9.6 L, Hct 31.9 L, MCV 89.4, MCH 26.9 L , MCHC 30.1 L, RDW 17.4, Plt Count 192, MPV 10.7 H, Neut % (Auto) 61.6, Lymph % (Auto) 23.2, [place] % (Auto) 11.1 H, Eos % (Auto) 2.7, Baso % (Auto) 1.1, Neut # (Auto) 3.9, Lymph # (Auto) 1.5, [place] # (Auto) 0.7, Eos # (Auto) 0.2, Baso # (Auto) 0.1, Sodium 137, Potassium 3.8, Chloride 93 L, Carbon Dioxide 39 H, Anion Gap 8.8, BUN 9, Creatinine 0.70, Estimated Creat Clear 72, Estimated GFR 81, Est GFR ( Amer) 97, Glucose 76, Calcium 8.3 L, Magnesium 2.0, Total Bilirubin 0.3, AST 28, ALT 18, Alkaline Phosphatase 95, Troponin I 0.03, NT-Pro-B Natriuret Pep 1150 H, Total Protein 5.9 L, Albumin 3.1 L, Globulin 2.8, Albumin/Globulin Ratio 1.1 11/20/24 16:49: Troponin I 0.02 Orders (Tests/Meds): ED MEDICATIONS Discontinued Medications Generic Name Dose Route Start Last Admin Trade Name Freq PRN Reason Stop Dose Admin Hydrocodone Bitart/Acetaminophen 1 tab 11/20/24 12:17 11/20/24 12:29 Hydrocodone/Apap 5/325 Mg Tablet PO 11/20/24 12:18 1 tab ONCE ONE Administration Albuterol/Ipratropium 3 ml 11/20/24 12:14 11/20/24 12:29 Ipratropium/Albuterol 3 Ml Neb IH 11/20/24 12:15 3 ml ONCE ONE Administration Morphine Sulfate 4 mg 11/20/24 15:16 11/20/24 15:24 Morphine 4mg/Ml Syringe IV 11/20/24 15:17 4 mg ONCE ONE Administration Ondansetron HCl 4 mg 11/20/24 12:14 11/20/24 12:29 Ondansetron 4mg/2ml Vial IV 11/20/24 12:15 4 mg ONCE ONE Administration Promethazine HCl 25 mg 11/20/24 13:06 11/20/24 13:13 Promethazine Hcl 25mg/Ml 1ml Vial IV 11/20/24 13:07 25 mg ONCE ONE Administration Sodium Chloride 25 ml 11/20/24 13:06 11/20/24 13:22 Sodium Chloride 0.9% 25ml Bag IV 11/20/24 13:07 Not Given ONCE ONE ORDERS Category Date Time Status CT lumbar spine wo con Stat Cat Scan 11/20/24 12:14 Completed XR chest portable Stat Exams 11/20/24 12:14 Completed BNP [NT Pro Brain Natriuretic Pep.] Stat Lab 11/20/24 12:30 Completed CBC w/Auto Diff [Complete Blood Count Auto Diff] Stat Lab 11/20/24 12:30 Completed CMP [Comprehensive Metabolic Panel] Stat Lab 11/20/24 12:30 Completed Magnesium Stat Lab 11/20/24 12:30 Completed Troponin I Q3H Lab 11/20/24 16:49 Completed Troponin I Q3H Lab 11/20/24 18:30 Ordered Troponin I Stat Lab 11/20/24 12:30 Completed ECG Data Tracing #1: Independently interpreted by myself demonstrate normal sinus rhythm with T wave inversion in 3 and aVF with no reciprocal changes no obvious acute ischemic ST change. Critical Care <Florencia Downing - Last Filed: 11/20/24 17:55> Critical Care Time Critical Care Time: No
--- NOTE | 2024-11-20 12:14 | CT_ITS ---
FINAL REPORT TECHNIQUE: Thin section axial images were obtained through the lumbar spine without contrast. Sagittal and coronal reconstruction images were obtained from the axial data. Exam was performed using dose reduction techniques. CLINICAL HISTORY: fall/pain COMPARISON: 03/12/2023 FINDINGS: There are chronic deformities of several left transverse processes. There is a new subtle compression fracture involving the superior endplate of L2 with minimal loss of vertebral body height. No other fracture identified. Advanced multilevel degenerative disc disease appears similar to the prior study. Grade 1 anterolisthesis of L4 on L5 is similar to the prior study. Levoscoliosis is noted. Nonobstructing left renal stones are present. There is mild presacral edema which is new. IMPRESSION: New subtle superior endplate fracture at L2. Recommend MRI to better determine acuity. Stable degenerative disc disease and levoscoliosis. New presacral edema incompletely imaged. Consider MRI pelvis for further evaluation. Reviewed, Interpreted and Dictated by Daphney Clayton MD Transcribed by Omayra Pabon Authenticated and [facility]
--- NOTE | 2024-11-20 12:14 | XR_ITS ---
FINAL REPORT TECHNIQUE: Single view chest CLINICAL HISTORY: cough, copd COMPARISON: 09/12/2024 FINDINGS: A single view of the chest was obtained. There is stable, mild cardiomegaly. There has been interval resolution of bilateral perihilar opacities. There is continued low lung volume. Left base opacity is likely atelectasis. There is no pneumothorax. IMPRESSION: Left base opacity, likely atelectasis. Reviewed, Interpreted and Dictated by Daphney Clayton MD Transcribed by Allyssa Zaman Authenticated and [facility]
--- OUTSIDE RECORDS SUMMARY | 2024-11-20 12:16 | XMS_ITS | Encounter Summary ---
[facility] Address [address] [place] [address] Care Team Providers Care Home Care Nurse Name Role Phone Earl Dumont MD Primary Care Provider [phone] Reason for Visit * Reason Comments Med Refill Encounter Details Date Type Department Care Team (Late st Contact Info) Description 10/12/2024 Refill [facility] [address] [facility] [place] [address] Earl Dumont MD [address] [facility] [place] [address] Generalized anxiety disorder Social History [...] Description 02/19/2025 3:00 PM EST Office Visit [facility] [address] [place] [address] Earl Dumont MD [address] [place] [address] documented as of this encounter Visit Diagnoses Diagnosis Generalized anxiety disorder documented in this encounter Additional Health Concerns Assessment Noted Time PHQ-2 Depression Total Score: 2 07/14/19 24 4:30 PM EDT documented as of this encounter Care Teams Home Care Nurse Relationship Specialty Start Date End Date Earl Dumont MD [address] [place] [address] PCP - General Family Medicine 01/23/20 documented as of this encounter
--- OUTSIDE RECORDS SUMMARY | 2024-11-20 12:16 | XMS_ITS | Encounter Summary ---
[facility] Address [address] [place] [address] Care Team Providers Care Treatment Counselor Name Role Phone Earl Dumont MD Primary Care Provider [phone] Reason for Visit * Reason Onset Date Comments Med Refill 10/13/2024 Encounter Details Date Type Department Care Team (Late st Contact Info) Description 10/13/2024 Refill [facility] [address] [place] [address] Earl Dumont MD [address] [place] [address] Generalized anxiety disorder Social History [...] encounter Miscellaneous Notes * Telephone Encounter - Sharmaine Horne RegSched Rep - 10/13/2024 2:53 PM EDT Caller: SHAKILA COX Relationship: Grandchild Best call back number: Telephone Information: Requested Prescriptions: Requested Prescriptions Pending Prescriptions Disp Refills hydrOXYzine (ATARAX) 50 MG tablet 20 tablet 1 Sig: Take 0.5-1 tablets by mouth Every 6 (Six) Hours As Needed for Anxiety. Pharmacy where request should be sent: [facility] - [address] [place] [address] [address] - [phone] [facility] [phone] FX Last office visit with prescribing clinician: 08/30/2024 Last telemedicine visit with prescribing clinician: Visit date not found Next office visit with prescribing clinician: 02/19/2025 Does the patient have less than a 3 day supply: [x] Yes [] No Farhad Alan Rep 10/13/24 14:54 EDT documented in this encounter Plan of Treatment Upcoming Encounters Date Type Department Care Team (Late st Contact Info) Description 02/19/2025 3:00 PM EST Office Visit [facility] [address] [facility] [place] [phone] Earl Dumont MD [address] [place] [address] documented as of this encounter Visit Diagnoses Diagnosis Generalized anxiety disorder documented in this encounter Additional Health Concerns Assessment Noted Time PHQ-2 Depression Total Score: 2 07/14/19 24 4:30 PM EDT documented as of this encounter Care Teams Treatment Counselor Relationship Specialty Start Date End Date Earl Dumont MD [address] [place] [address] PCP - General Family Medicine 01/23/20 documented as of this encounter
--- OUTSIDE RECORDS SUMMARY | 2024-11-20 12:16 | XMS_ITS | Encounter Summary ---
[facility] Address [address] [place] [address] Care Team Providers Care Motor Vehicle Licence Examiner Name Role Phone Earl Dumont MD Primary Care Provider [phone] Reason for Visit * Reason Comments Med Refill Encounter Details Date Type Department Care Team (Late st Contact Info) Description 11/14/2024 Refill [facility] [address] [facility] [place] [address] Earl Dumont MD [address] [facility] [place] [address] Generalized anxiety disorder Social History [...] 3:00 PM EST Office Visit [facility] [address] [place] [address] Earl Dumont MD [address] [place] [address] documented as of this encounter Visit Diagnoses Diagnosis Generalized anxiety disorder documented in this encounter Additional Health Concerns Assessment Noted Time PHQ-2 Depression Total Score: 2 07/14/19 24 4:30 PM EDT documented as of this encounter Care Teams Motor Vehicle Licence Examiner Relationship Specialty Start Date End Date Earl Dumont MD [address] [place] [address] PCP - General Family Medicine 01/23/20 documented as of this encounter
--- OUTSIDE RECORDS SUMMARY | 2024-11-20 12:16 | XMS_ITS | Encounter Summary ---
[facility] Address [address] [place] [address] Care Team Providers Care Chief Wharfinger Name Role Phone Earl Dumont MD Primary Care Provider [phone] Reason for Referral * MRI/CAT/PET Scan (Routine) - Closed Specialty Diagnoses / Procedures Referred By Contac t Referred To Contact Radiology Diagnoses Lung nodule Procedures CT Chest Without Contrast Earl Dumont MD [address] [place] [address] Phone: tel: fax: [facility] [address] [place] [address] Phone: tel: Referral ID Status Reason Start Date Expiration Date Visits Re quested Visits Authorized [id number] Closed 09/27/2024 12/27/2025 1 1 Encounter Details Date Type Department Care Team (Late st Contact Info) Description 09/27/2024 Results Follow-Up [facility] [address] [place] [address] Earl Dumont MD [address] [place] [address] Social History Tobacco Use Types [...] Description 02/19/2025 3:00 PM EST Office Visit [facility] [address] [place] [phone] Earl Dumont MD [address] [place] [address] Scheduled Orders Name Type Priority Associated Diagnoses Orde r Schedule CT Chest Without Contrast Imaging Routine Lung nodule Expected: 09/28/2024, Expires: 12/28/2025 documented as of this encounter Visit Diagnoses Diagnosis Lung nodule- Primary Other diseases of lung, not elsewhere classified documented in this encounter Additional Health Concerns Assessment Noted Time PHQ-2 Depression Total Score: 2 07/14/19 24 4:30 PM EDT documented as of this encounter Care Teams Chief Wharfinger Relationship Specialty Start Date End Date Earl Dumont MD [address] [place] [address] PCP - General Family Medicine 01/23/20 documented as of this encounter
--- OUTSIDE RECORDS SUMMARY | 2024-11-20 12:16 | XMS_ITS | Encounter Summary ---
[facility] Address [address] [place] [address] Care Team Providers Care Ship Manager Name Role Phone Earl Dumont MD Primary Care Provider [phone] Reason for Visit * Reason Onset Date Comments Med Refill 10/26/2024 Encounter Details Date Type Department Care Team (Late st Contact Info) Description 10/26/2024 Telephone [facility] [address] [facility] [place] [address] Earl Dumont MD [address] [facility] [place] [address] Med Refill Social History Tobacco Use Types Packs/Day Years [...] encounter Miscellaneous Notes * Telephone Encounter - Cyndie Chua - 10/26/2024 3:52 PM EDT Contacted pt and her and her grand daughter stated they would call back if she needed an appt. * Telephone Encounter - Yusra Zimmerman RegSched Rep - 10/26/2024 12:41 PM EDT Caller: SHAKILA Relationship: GRANDDAUGHTER Best call back number: [phone] What medication are you requesting: TYLENOL What are your current symptoms: CONGESTION, RUNNY NOSE, CHAFED NOSTRILS How long have you been experiencing symptoms: DAYS Have you had these symptoms before: [x] Yes [] No Have you been treated for these symptoms before: [x] Yes [] No If a prescription is needed, what is your preferred pharmacy and phone number: [facility] [phone] - [place] - [address] [facility] [phone] - [phone] FX Additional notes: documented in this encounter Plan of Treatment Upcoming Encounters Date Type Department Care Team (Late st Contact Info) Description 02/19/2025 3:00 PM EST Office Visit [facility] [address] [place] [phone] Earl Dumont MD [address] [place] [address] documented as of this encounter Visit Diagnoses Not on filedocumented in this encounter Additional Health Concerns Assessment Noted Time PHQ-2 Depression Total Score: 2 07/14/19 24 4:30 PM EDT documented as of this encounter Care Teams Ship Manager Relationship Specialty Start Date End Date Earl Dumont MD [address] [place] [address] PCP - General Family Medicine 01/23/20 documented as of this encounter
--- OUTSIDE RECORDS SUMMARY | 2024-11-20 12:16 | XMS_ITS | Encounter Summary ---
[facility] Address [address] [place] [address] Care Team Providers Care Solution Consultant Name Role Phone Earl Dumont MD Primary Care Provider [phone] Reason for Visit * Reason Onset Date Comments ERROR 10/06/2024 Encounter Details Date Type Department Care Team (Late st Contact Info) Description 10/06/2024 Telephone [facility] [address] [facility] [address] Earl Dumont MD [address] [place] [address] ERROR Social History Tobacco Use Types Packs/Day Years [...] encounter Miscellaneous Notes * Telephone Encounter - Rosalba Vásquez RegSched Rep - 10/06/2024 2:57 PM EDT A user error has taken place: encounter opened in error, closed for administrative reasons. documented in this encounter Plan of Treatment Upcoming Encounters Date Type Department Care Team (Late st Contact Info) Description 02/19/2025 3:00 PM EST Office Visit [facility] [address] [place] [address] Earl Dumont MD [address] [place] [address] documented as of this encounter Visit Diagnoses Not on filedocumented in this encounter Additional Health Concerns Assessment Noted Time PHQ-2 Depression Total Score: 2 07/14/19 24 4:30 PM EDT documented as of this encounter Care Teams Solution Consultant Relationship Specialty Start Date End Date Earl Dumont MD [address] [place] [address] PCP - General Family Medicine 01/23/20 documented as of this encounter
--- OUTSIDE RECORDS SUMMARY | 2024-11-20 12:16 | XMS_ITS | Encounter Summary ---
[facility] Address [address] [place] [address] Care Team Providers Care Crystal Report Developer Name Role Phone Earl Dumont MD Primary Care Provider [phone] Reason for Visit * Reason Onset Date Comments Med Refill 10/11/2024 Encounter Details Date Type Department Care Team (Late st Contact Info) Description 10/11/2024 Refill [facility] [address] [place] [address] Earl Dumont MD [address] [place] [address] Essential hypertension; Memory change; Recurrent major depressive disorder, in full remission; Generalized anxiety disorder Social History Tobacco Use [...] Encounter - Florencia Gordon RegSched Rep - 10/11/2024 3:37 PM EDT PATIENT CALLED STATING SHE HAD MISSES A CALL FROM THE OFFICE DIDN'T SEEN ANY ENCOUNTER OTHER THAN HER REQUEST FROM THIS ENCOUNTER * Telephone Encounter - Joshua Hill - 10/11/2024 2:34 PM EDT Caller: Patito Garcia Relationship: Self Best call back number: [phone] Requested Prescriptions: Requested Prescriptions Pending Prescriptions Disp Refills amLODIPine (NORVASC) 5 MG tablet 90 tablet 1 Sig: Take 1 tablet by mouth Daily. donepezil (ARICEPT) 10 MG tablet 90 tablet 1 Sig: Take 1 tablet by mouth Daily. DULoxetine (CYMBALTA) 60 MG capsule 90 capsule 1 Sig: Take 1 capsule by mouth Daily. hydrOXYzine (ATARAX) 50 MG tablet 20 tablet 1 Sig: Take 0.5-1 tablets by mouth Every 6 (Six) Hours As Needed for Anxiety. memantine (NAMENDA) 5 MG tablet 60 tablet 3 Sig: Take 1 tablet by mouth 2 (Two) Times a Day. Pharmacy where request should be sent: [facility] - [place] [address] [address] - [phone] - [phone] FX Last office visit with prescribing clinician: 08/30/2024 Last telemedicine visit with prescribing clinician: Visit date not found Next office visit with prescribing clinician: 02/19/2025 Additional details provided by patient: PATIENT HAS CALLED REQUESTING ALL NEW PRESCRIPTIONS ON ABOVE MEDICATIONS TO BE SENT TO HER NEW PHARMACY. PATIENT STATES HER PRIMARY PHARMACY SHOULD BE [facility]. Does the patient have less than a 3 day supply: [] Yes [x] No Would you like a call back once the refill request has been completed: [] Yes [x] No If the office needs to give you a call back, can they leave a voicemail: [] Yes [x] No Joshua Hill 10/11/24 14:34 EDT documented in this encounter Plan of Treatment Upcoming Encounters Date Type Department Care Team (Late st Contact Info) Description 02/19/2025 3:00 PM EST Office Visit [facility] [address] [place] [address] Earl Dumont MD [address] [place] [address] documented as of this encounter Visit Diagnoses Diagnosis Essential hypertension Unspecified essential hypertension Memory change Memory loss Recurrent major depressive disorder, in full remission Generalized anxiety disorder documented in this encounter Additional Health Concerns Assessment Noted Time PHQ-2 Depression Total Score: 2 07/14/19 24 4:30 PM EDT documented as of this encounter Care Teams Crystal Report Developer Relationship Specialty Start Date End Date Earl Dumont MD [address] [place] [address] PCP - General Family Medicine 01/23/20 documented as of this encounter
--- OUTSIDE RECORDS SUMMARY | 2024-11-20 12:16 | XMS_ITS | Encounter Summary ---
[facility] Address [address] [place] [address] Care Team Providers Care Research Executive Name Role Phone Earl Dumont MD Primary Care Provider [phone] Reason for Visit * Reason Onset Date Comments Med Refill 07/17/2024 Encounter Details Date Type Department Care Team (Late st Contact Info) Description 07/17/2024 Refill [facility] [address] [place] [address] Earl Dumont MD [address] [place] [address] Generalized anxiety disorder Social History [...] place to sleep or slept in a [place] facility (including now)? No 10/01/2021 PHQ-2 Answer Date [...] Garcia Relationship: Self Best call back number: [phone] Requested Prescriptions: Requested Prescriptions Pending Prescriptions Disp Refills hydrOXYzine (ATARAX) 50 MG tablet 20 tablet 1 Sig: Take 0.5-1 tablets by mouth Every 6 (Six) Hours As Needed for Anxiety. Pharmacy where request should be sent: [id number] - [facility] [place] - [address] [place] [address] [address] [facility] [phone] [facility] [phone] FX Last office visit with prescribing clinician: [...] [facility] [address] [facility] [place] [phone] Earl Dumont MD [address] [facility] [place] [address] documented as of this encounter Visit Diagnoses Diagnosis Generalized anxiety disorder documented in this encounter Additional Health Concerns Assessment Noted Time PHQ-2 Depression Total Score: 2 07/14/19 24 4:30 PM EDT documented as of this encounter Care Teams Research Executive Relationship Specialty Start Date End Date Earl Dumont MD [address] [place] [address] PCP - General Family Medicine 01/23/20 documented as of this encounter
--- OUTSIDE RECORDS SUMMARY | 2024-11-20 12:16 | XMS_ITS | Encounter Summary ---
[facility] Address [address] [place] [address] Care Team Providers Care Crocheter Name Role Phone Earl Dumont MD Primary Care Provider [phone] Reason for Visit * Reason Onset Date Comments Med Refill 11/13/2024 Encounter Details Date Type Department Care Team (Late st Contact Info) Description 11/13/2024 Refill [facility] [address] [place] [address] Earl Dumont MD [address] [place] [address] Social History Tobacco Use Types [...] encounter Miscellaneous Notes * Telephone Encounter - Lisa Valle RegSched Rep - 11/13/2024 9:43 AM EDT Caller: SHAKILA Relationship: Best call back number: Requested Prescriptions: Requested Prescriptions Pending Prescriptions Disp Refills nystatin (MYCOSTATIN) 100,000 unit/mL suspension 250 mL 1 Sig: Swish and swallow 5 mL 4 (Four) Times a Day. Pharmacy where request should be sent: [id number] - [place], [place] - [address] [place] [address] [address] [phone] [facility] [phone] FX Last office visit with prescribing clinician: 08/30/2024 Last telemedicine visit with prescribing clinician: Visit date not found Next office visit with prescribing clinician: 02/19/2025 Additional details provided by patient: Does the patient have less than a 3 day supply: [] Yes [x] No Would you like a call back once the refill request has been completed: [] Yes [x] No If the office needs to give you a call back, can they leave a voicemail: [] Yes [x] No Farhad Severino Rep 11/13/24 09:44 EDT documented in this encounter Plan of Treatment Upcoming Encounters Date Type Department Care Team (Late st Contact Info) Description 02/19/2025 3:00 PM EST Office Visit [facility] [address] [facility] [place] [address] Earl Dumont MD [address] [facility] [place] [place] [address] documented as of this encounter Visit Diagnoses Not on filedocumented in this encounter Additional Health Concerns Assessment Noted Time PHQ-2 Depression Total Score: 2 07/14/19 24 4:30 PM EDT documented as of this encounter Care Teams Crocheter Relationship Specialty Start Date End Date Earl Dumont MD [address] [place] [address] PCP - General Family Medicine 01/23/20 documented as of this encounter
--- OUTSIDE RECORDS SUMMARY | 2024-11-20 12:16 | XMS_ITS | Encounter Summary ---
[facility] Address [address] [place] [address] Care Team Providers Care Manager Respiratory Name Role Phone Earl Dumont MD Primary Care Provider [phone] Reason for Visit * Reason Onset Date Comments Advice Only 09/26/2024 Encounter Details Date Type Department Care Team (Late st Contact Info) Description 09/26/[address] [facility] [address] [facility] [place] [address] Earl Dumont MD [address] [facility] [place] [address] Advice Only Social History Tobacco [...] Telephone Encounter - Earl Dumont MD - 09/26/2024 5:03 PM EDT Powder sent in * Telephone Encounter - Florencia Gordon RegSched Rep - 09/26/2024 1:28 PM EDT JAYDA FROM [employer] [facility] CALLED TO RELAY THAT PATIENT HAS AN YEAST INFECTION ALL OVER HER BODY AND WANTED TO SEE IF AN NYSTATIN POWDER COULD BE ORDERED FOR HER documented in this encounter Plan of Treatment Upcoming Encounters Date Type Department Care Team (Late st Contact Info) Description 02/19/2025 3:00 PM EST Office Visit [facility] [address] [place] [phone] Earl Dumont MD [address] [place] [address] documented as of this encounter Visit Diagnoses Not on filedocumented in this encounter Additional Health Concerns Assessment Noted Time PHQ-2 Depression Total Score: 2 07/14/19 24 4:30 PM EDT documented as of this encounter Care Teams Manager Respiratory Relationship Specialty Start Date End Date Earl Dumont MD [address] [place] [address] PCP - General Family Medicine 01/23/20 documented as of this encounter
--- OUTSIDE RECORDS SUMMARY | 2024-11-20 12:16 | XMS_ITS | Clinical Summary ---
Author Organization [facility] Address [address] [place] [address] Care Team Providers Care Research Laboratory Technician Name Role Phone Earl Dumont MD Primary Care Provider [phone] Allergies Active Allergy Reactions Criticality Noted Date [...] for Wheezing. 300 mL 12 024 Active famotidine (PEPCID) 40 MG tabletIndications :Gastroesophageal [...] night at bedtime. 90 tablet 025 Active docusate sodium (Colace) 100 MG capsuleIndication s:Chronic idiopathic constipation Take 1 capsule by mouth 2 (Two) Times a Day. 60 capsule 5 025 Active Entresto 49-51 MG tabletIndications :Diastolic [...] Every Morning. 90 tablet 1 025 Active Diclofenac Sodium (VOLTAREN) 1 % [...] mouth Daily. 90 tablet 1 025 Active traMADol (ULTRAM) 50 MG tabletIndications :Right leg pain,Pain of right lower extremity 1 PO BID PRN leg pain 60 tablet Active nystatin (MYCOSTATIN) 933621 UNIT/GM powder Apply topically to the appropriate area as directed 3 (Three) Times a Day. 60 g 1 025 Active amLODIPine (NORVASC) 5 MG tabletIndications :Essential hypertension Take 1 tablet by mouth Daily. 90 tablet 1 025 Active donepezil (ARICEPT) 10 MG tabletIndications :Memory change Take 1 tablet by mouth Daily. 90 tablet 1 025 Active DULoxetine (CYMBALTA) 60 MG capsuleIndication s:Recurrent major depressive disorder, in full remission Take 1 capsule by mouth Daily. 90 capsule 1 025 Active memantine (NAMENDA) 5 MG tabletIndications :Memory change Take 1 tablet by mouth 2 (Two) Times a Day. 60 tablet 3 025 Active nystatin (MYCOSTATIN) 100,000 unit/mL suspension Swish and swallow 5 mL 4 (Four) Times a Day. 250 mL 1 025 Active hydrOXYzine (ATARAX) 50 MG tabletIndications :Generalized anxiety disorder TAKE 1/2 TO 1 TABLET BY MOUTH EVERY 6 HOURS NEEDED FOR ANXIETY 20 tablet 1 025 Active nystatin (MYCOSTATIN) 100,000 unit/mL suspension Swish and swallow 5 mL 4 (Four) Times a Day. 250 mL 1 025 2024 Discontinued(R eorder) hydrOXYzine (ATARAX) 50 MG tabletIndications :Generalized anxiety disorder Take 0.5-1 tablets by mouth Every 6 (Six) Hours As Needed for Anxiety. 20 tablet 1 025 2024 Discontinued Active Problems Problem Noted Date Diagnosed Date [...] Encounters Date Type Department Care Team Description 11/15/2024 [facility] MEDICINE [address] [facility] [place] [address] Earl Dumont MD CALLBACK 11/14/2024 Refill [facility] MEDICINE [address] [facility] [place] [address] Earl Dumont MD Generalized anxiety disorder 11/13/2024 Refill [facility] [address] [place] [address] Earl Dumont MD 11/09/2024 [facility] MEDICINE [address] [facility] [place] [address] Earl Dumont MD 10/26/2024 [facility] MEDICINE [address] [facility] [place] [address] Earl Dumont MD Med Refill 10/13/2024 Refill [facility] [address] [place] [address] Earl Dumont MD Generalized anxiety disorder 10/12/2024 Refill [facility] [address] [place] [address] Earl Dumont MD Generalized anxiety disorder 10/11/2024 Refill [facility] [address] [place] [address] Earl Dumont MD Essential hypertension; Memory change; Recurrent major depressive disorder, in full remission; Generalized anxiety disorder 10/06/2024 Telephone [facility] [address] [facility] [place] [address] Earl Dumont MD ERROR 10/02/2024 Refill [facility] [address] [place] [address] Earl Dumont MD 09/27/2024 Results Follow-Up [facility] [address] [place] [address] Earl Dumont MD 09/26/2024 Telephone [facility] [address] [place] [address] Earl Dumont MD Advice Only 08/30/2024 3:00 PM EDT Office Visit [facility] [address] [place] [address] Earl Dumont MD Nausea and vomiting, unspecified vomiting type (Primary Dx); Right leg pain; Pain of right lower extremity; Chronic obstructive pulmonary disease with (acute) lower respiratory infection; CO2 retention 08/30/2024 Travel 08/29/2024 Refill [facility] [address] [place] [address] Earl Dumont MD 08/28/2024 Telephone [facility] [address] [place] [address] Earl Dumont MD HOME HEALTH REFERRAL NEEDED 08/25/2024 Telephone [facility] [address] [place] [address] Earl Dumont MD CALLBACK 08/22/2024 Refill [facility] [address] [place] [address] Earl Dumont MD Right leg pain 08/21/2024 2:15 PM EDT Office Visit [facility] [address] [place] [address] Earl Dumont MD Medicare annual wellness visit, subsequent (Primary Dx); Right leg pain; Essential hypertension; Diastolic dysfunction with chronic heart failure; Acquired hypothyroidism; Age-related osteoporosis without current pathological fracture; Generalized anxiety disorder; Recurrent major depressive disorder, in full remission; History of pulmonary embolism; Multiple subsegmental pulmonary emboli without acute cor pulmonale; Hypercholesterolemia; Lower extremity edema; Memory change 08/21/2024 Travel from Last 3 Months Immunizations Immunization Administration Dates Next Due COVID-19 (MODERNA) 1st,2nd,3rd Dose Monovalent 0 04/17/2020,03/20/2020 Flu Vaccine Quad PF >36MO 12/13/2015 Fluzone High-Dose 65+yrs 02/03/2021 Influenza Seasonal Injectable 10/27/2010 Influenza, Unspecified 10/03/2019 Pneumococcal Conjugate 13-Valent (PCV13) 021,12/30/2015 Pneumococcal Polysaccharide (PPSV23) 01/02/2019 Td (TDVAX) 12/17/1998 Family History Medical History Relation Name Comments Hypertension Father Ghassan Samuel Coronary artery disease Mother Hyperlipidemia Paternal Aunt [...] Visit [facility] [address] [place] [address] Earl Dumont MD [address] [place] [address] Health Maintenance Due Date Last Done Comments ZOSTER VACCINE (1 of 2) 1994 TDAP/TD VACCINES (2 - Tdap) 12/17/2008 12/17/1998 RSV Vaccine - Adults (1 - 1- dose 75+ series) 2019 INFLUENZA VACCINE 09/08/2024 02/03/2021, , 12/13/2015, Additional history exists COVID-19 Vaccine (2024-2 6 season) 2024 09/09/2021, 04/17/2020, 03/20/2020 LIPID PANEL 12/05/2024 12/06/2023, 03/0 05/2023, 10/02/2022, Additional history exists ANNUAL WELLNESS VISIT 08/21/2025 08/21/2024 , 07/14/2023, 07/01/2022, Additional history exists Pneumococcal Vaccine 50+ Completed 021, 01/02/2019, 12/30/2015 DXA SCAN Discontinued Medical Devices Implanted Type Area Leacher Device Identifier Shelf Expiration Date Model / Serial / Lot Cmt Bone Simplex/P Full Dose 10/Pk - [id number] Implanted:Qty : 1 on 08/28/2021 by Nilesh Hare MD at [facility] Implant Left: Knee MART[employer]N [employer]WEY [id number] 09/08/2023 [id number] / / [id number] Cmt Bone Simplex/P Full Dose 10/Pk - [id number] Implanted:Qty : 1 on 08/28/2021 by Nilesh Hare MD at [facility] Implant Left: Knee MARTÍN DEWEY 11/08/2023 [id number] / / [id number] Dev Contrl Tiss Stratafix Spiral Pdo Bidir 1 [id number] - [id number] Implanted:Qty : 1 on 08/28/2021 by Nilesh Hare MD at [facility] Implant Left: Knee [employer] J 06/07/2026 [id number] / / [id number] Insrt Tib/Kn Triath Ps A/Poly Sz4 9mm - [id number] Implanted:Qty : 1 on 08/28/2021 by Nilesh Hare MD at [facility] Implant Left: Knee MARTÍN DEWEY [id number] 12/27/2021 [id number] / / [id number] Comp Fem Triath Ps Cmt No4 Lt - [id number] Implanted:Qty : 1 on 08/28/2021 by Nilesh Hare MD at [facility] Implant Left: Knee [employer]ART[employer] [id number] 06/18/2025 [id number] / / [id number] Peg Fem Fix Triathlon Dist Mod Pk/2 - [id number] Implanted:Qty : 1 on 08/28/2021 by Nilesh Hare MD at [facility] Implant Left: Knee [employer]ART[employer]Y [id number] 06/01/2025 [id number] / / [id number] Pat Triath Asym X3 [id number] - [id number] Implanted:Qty : 1 on 08/28/2021 by Nilesh Hare MD at [facility] Implant Left: Knee [employer]ARTÍ[employer]WEY [id number] 06/21/2026 [id number] / / [id number] Totl Kn Med Demand [place] - [id number] Implanted:Qty : 1 on 08/28/2021 by Nilesh Hare MD at [facility] Implant Left: Knee MARTÍN DEWEY CAPKNTOTLME [id number] / / Procedures Procedure Name Priority Date/Time Associated Diagnosis Comments LIPID PANEL Routine 12/06/2023 2:25 PM EDT Hypercholesterolemia from Last 3 Months or Most Recently Relevant to Health Maintenance Results * Lipid Panel (12/06/2023 2:25 PM EDT) [...] AM EDT Performed at: 01 - [facility] [address] [id number] Locomotive Mechanic Apprentice: Osito Cabezas PhD, Phone: [phone] Patient Fasting: N us Earl Dumont MD LAB BLOOD ORDERABLES Final Resu lt [facility] (AMBULATORY) [address] [place] [address], [place] [phone] [facility] [address] [place] [address], [place] [phone] from Last 3 Months or Most Recently [...] Of Support Discussed With: Patient Care Teams Research Laboratory Technician Relationship Specialty Start Date End [place] [address] PCP - General Family Medicine 01/23/20
--- OUTSIDE RECORDS SUMMARY | 2024-11-20 12:16 | XMS_ITS | Encounter Summary ---
[facility] Address [address] [place] [address] Care Team Providers Care E Commerce Manager Name Role Phone Earl Dumont MD Primary Care Provider [phone] Reason for Visit * Reason Comments Med Refill Encounter Details Date Type Department Care Team (Late st Contact Info) Description 05/08/2022 Refill [facility] [address] [facility] [place] [address] Earl Dumont MD [address] [facility] [place] [place] [address] Generalized anxiety disorder Social History [...] Description 02/19/2025 3:00 PM EST Office Visit [facility] [address] [place] [address] Earl Dumont MD [address] [place] [address] documented as of this encounter Visit Diagnoses Diagnosis Generalized anxiety disorder documented in this encounter Care Teams E Commerce Manager Relationship Specialty Start Date End Date Earl Dumont MD [address] [place] [address] PCP - General Family Medicine 01/23/20 documented as of this encounter
--- OUTSIDE RECORDS SUMMARY | 2024-11-20 12:16 | XMS_ITS | Encounter Summary ---
[facility] Organization [facility] Address [address] [place] [address] Care Team Providers Care Mental Retardation Aide Name Role Phone Earl Dumont MD Primary Care Provider [phone] Reason for Visit * Reason Onset Date Comments CALLBACK 11/15/2024 Encounter Details Date Type Department Care Team (Late st Contact Info) Description 11/15/2024 Telephone [facility] [address] [facility] [place] [address] Earl Dumont MD [address] [facility] [place] [address] CALLBACK Social History Tobacco Use [...] encounter Miscellaneous Notes * Telephone Encounter - Tana Wills RegSched Rep - 11/16/2024 4:34 PM EDT PATIENT CALLED BACK AND STATED THEY DID NOT WANT AN APPT THEY WOULD JUST GO TO THE ER * Telephone Encounter - Sadaf Godinez MA - 11/16/2024 4:32 PM EDT Lvm: Hub to relay: pt will need an appt so can look at it * Telephone Encounter - Rylan Corona RegSched Rep - 11/15/2024 10:56 AM EDT Caller: BROOKE ANDREZ Relationship: Grandchild Best call back number: [phone] What was the call regarding: PATIENTS GRANDDAUGHTER IS CALLING AND STATES THE PATIENT FELL ON 11/12/24 AND HAS SINCE BEEN EXPERIENCING SOME BACK PAIN. SHE WOULD LIKE A CALL BACK TO DISCUSS THIS AND SEE WHAT HER NEXT STEPS SHOULD BE. documented in this encounter Plan of Treatment Upcoming Encounters Date Type Department Care Team (Late st Contact Info) Description 02/19/2025 3:00 PM EST Office Visit [facility] [address] [facility] [place] [address] Earl Dumont MD [address] [place] [address] documented as of this encounter Visit Diagnoses Not on filedocumented in this encounter Additional Health Concerns Assessment Noted Time PHQ-2 Depression Total Score: 2 07/14/19 24 4:30 PM EDT documented as of this encounter Care Teams Mental Retardation Aide Relationship Specialty Start Date End Date Earl Dumont MD [address] [place] [address] PCP - General Family Medicine 01/23/20 documented as of this encounter
--- OUTSIDE RECORDS SUMMARY | 2024-11-20 12:16 | XMS_ITS | Encounter Summary ---
[facility] Organization [facility] Address [address] [place] [address] Care Team Providers Care Teenage Babysitter Name Role Phone Earl Dumont MD Primary Care Provider [phone] Reason for Visit * Reason Onset Date Comments CALLBACK 08/25/2024 Encounter Details Date Type Department Care Team (Late st Contact Info) Description 08/25/2024 Telephone [facility] [address] [facility] [place] [address] Earl Dumont MD [address] [facility] [place] [address] CALLBACK Social History Tobacco Use [...] Garcia Relationship: Self Best call back number: [phone] What was the call regarding: PATIENT STATES SHE IS STILL EXPERIENCING LEG PAIN, WEAKNESS, AND SHAKING. SHE WOULD LIKE A CALL BACK TO DISCUSS THIS AND SEE WHAT HER NEXT STEPS SHOULD BE. documented in this encounter Plan of Treatment Upcoming Encounters Date Type Department Care Team (Late st Contact Info) Description 02/19/2025 3:00 PM EST Office Visit [facility] MEDICINE [address] [place] [address] Earl Dumont MD [address] [place] [address] documented as of this encounter Visit Diagnoses Not on filedocumented in this encounter Additional Health Concerns Assessment Noted Time PHQ-2 Depression Total Score: 2 07/14/19 24 4:30 PM EDT documented as of this encounter Care Teams Teenage Babysitter Relationship Specialty Start Date End Date Earl Dumont MD [address] [place] [address] PCP - General Family Medicine 01/23/20 documented as of this encounter
--- OUTSIDE RECORDS SUMMARY | 2024-11-20 12:16 | XMS_ITS | Encounter Summary ---
[facility] [address] [place] [address] Care Team Providers Care Residence Life Director Name Role Phone Earl Dumont MD Primary Care Provider [phone] Encounter Details Date Type Department Care Team (Late st Contact Info) Description 11/09/2024 Telephone [facility] MEDIC[facility] [address] [facility] [place] [address] Earl Dumont MD [address] [facility] [place] [address] Social History Tobacco Use Types [...] encounter Miscellaneous Notes * Telephone Encounter - Malena Cintron RegSched Rep - 11/09/2024 2:34 PM EDT PATIENT REFUSED HH PT. PATIENT STATED SHE DIDN'T FEEL GOOD AND WANTED TO STAY IN BED. documented in this encounter Plan of Treatment Upcoming Encounters Date Type Department Care Team (Late st Contact Info) Description 02/19/2025 3:00 PM EST Office Visit [facility] [address] [place], [place] [phone] Earl Dumont MD [address] [place] [address] documented as of this encounter Visit Diagnoses Not on filedocumented in this encounter Additional Health Concerns Assessment Noted Time PHQ-2 Depression Total Score: 2 07/14/19 24 4:30 PM EDT documented as of this encounter Care Teams Residence Life Director Relationship Specialty Start Date End Date Earl Dumont MD [address] [place] [address] PCP - General Family Medicine 01/23/20 documented as of this encounter
--- OUTSIDE RECORDS SUMMARY | 2024-11-20 12:16 | XMS_ITS | Encounter Summary ---
Author Organization [facility] Address [address] [place] [address] Care Team Providers Care Community Development Aide Name Role Phone Earl Dumont MD Primary Care Provider [phone] Reason for Visit * Reason Onset Date Comments Med Refill 10/02/2024 Encounter Details Date Type Department Care Team (Late st Contact Info) Description 10/02/2024 Refill [facility] MED[facility] [address] [place] [address] Earl Dumont MD [address] [place] [address] Social History Tobacco Use Types [...] encounter Miscellaneous Notes * Telephone Encounter - Patricia Benson RegSched Rep - 10/02/2024 2:34 PM EDT . Caller: Patito Garcia Relationship: Self Best call back number: [phone] Requested Prescriptions: Requested Prescriptions Pending Prescriptions Disp Refills nystatin (MYCOSTATIN) 120832 UNIT/GM powder 60 g 1 Sig: Apply topically to the appropriate area as directed 3 (Three) Times a Day. Pharmacy where request should be sent: [id number] - [place], [place] - [address] [address] [address] & [facility] [phone] [facility] [phone] FX Last office visit with prescribing clinician: 08/30/2024 Last telemedicine visit with prescribing clinician: Visit date not found Next office visit with prescribing clinician: 02/19/2025 Additional details provided by patient: OUT OF MEDICATION Does the patient have less than a 3 day supply: [x] Yes [] No Would you like a call back once the refill request has been completed: [] Yes [x] No If the office needs to give you a call back, can they leave a voicemail: [] Yes [x] No Farhad Beltran 10/02/24 14:35 EDT documented in this encounter Plan of Treatment Upcoming Encounters Date Type Department Care Team (Late st Contact Info) Description 02/19/2025 3:00 PM EST Office Visit [facility] [address] [facility] [place] [id number] Earl Dumont MD [address] [facility] [place] [address] documented as of this encounter Visit Diagnoses Not on filedocumented in this encounter Additional Health Concerns Assessment Noted Time PHQ-2 Depression Total Score: 2 07/14/19 24 4:30 PM EDT documented as of this encounter Care Teams Community Development Aide Relationship Specialty Start Date End Date Earl Dumont MD [address] [facility] [place] [address] PCP - General Family Medicine 01/23/20 documented as of this encounter
--- OUTSIDE RECORDS SUMMARY | 2024-11-20 12:16 | XMS_ITS | Encounter Summary ---
[facility] Address [address] [place] [address] Care Team Providers Care Dry Pan Feeder Name Role Phone Earl Dumont MD Primary Care Provider [phone] Reason for Visit * Reason Comments Med Refill Encounter Details Date Type Department Care Team (Late st Contact Info) Description 04/10/2022 Refill [facility] [address] [facility] [place] [address] Earl Dumont MD [address] [facility] [place] [address] Essential hypertension Social History Tobacco [...] in a residential (including now)? No 10/01/2021 Comments No Sex [...] 02/19/2025 3:00 PM EST Office Visit [facility] [address] [place] [address] Earl Dumont MD [address] [place] [address] documented as of this encounter Visit Diagnoses Diagnosis Essential hypertension Unspecified essential hypertension documented in this encounter Additional Health Concerns Assessment Noted Time PHQ-2 Depression Total Score: 1 04/26/19 22 2:42 PM EDT documented as of this encounter Care Teams Dry Pan Feeder Relationship Specialty Start Date End Date Earl Dumont MD [address] [place] [address] PCP - General Family Medicine 01/23/20 documented as of this encounter
--- NOTE | 2024-11-20 12:25 | ECG_ITS ---
APPROVED REPORT Exam: Resting ECG HR:62 bpm ECG Measurements Heart Rate 62 AXES TX 189 P 44 QRSd 124 QRS 81 QT 365 T 10 QTc 371 Conclusion SINUS RHYTHM RIGHT BUNDLE BRANCH BLOCK [120+ ms QRS DURATION, UPRIGHT V1, 40+ ms S IN I/aVL/V4/V5/V6] ABNORMAL ECG UNCONFIRMED REPORT Electronically signed by : Андрей Felix, 11/20/2024 15:48:08
[2024-11-20] MEDS: IPRATROPIUM/ALBUTEROL 3 ML NEB IH (12:29)
[2024-11-20] MEDS: ONDANSETRON 4MG/2ML VIAL 4 MG IV (12:29)
[2024-11-20] MEDS: HYDROCODONE/APAP 5/325 MG TABLET 1 TAB PO (12:29)
[2024-11-20 12:42] LABS: Hematocrit 31.9 % (37.0-47.0); Hemoglobin 9.6 g/dL (12.2-16.2); Immature Granulocytes % 0.3 %; Mean Corpuscular HGB Conc 30.1 g/dL (31.8-35.4); Mean Corpuscular Hemoglobin 26.9 pg (27.0-31.2); Mean Corpuscular Volume 89.4 fl (81-99); Nucleated Red Blood Cells % 0 %; Platelet Count 192 K/mm3 (142-424); Red Blood Count 3.57 M/mm3 (4.20-5.40); Red Cell Distribution Width-SD 56.5 fL; White Blood Count 6.3 K/mm3 (4.8-10.8)
[2024-11-20 12:51] LABS: Albumin Level 3.1 g/dl (3.5-5.0); Chloride 93 mmol/L (98-107)
[2024-11-20 12:52] LABS: Potassium 3.8 mmoL/L (3.5-5.1); Sodium 137 mmol/L (136-145)
[2024-11-20 12:54] LABS: Alanine Aminotransferase 18 U/L (12-78); Albumin/Globulin Ratio 1.1 (1.1-1.8); Aspartate Amino Transferase 28 U/L (14-36); Blood Urea Nitrogen 9 mg/dl (7-17); Creatinine Clearance Estimated 72 mL/min (50-200); Creatinine,Serum 0.70 mg/dl (0.52-1.04); Estimated Glomerular Filt Rate 81 ml/min (>60); GFR (African American) 97 ML/MIN (>60); Globulin 2.8 g/dL (1.3-3.2); Total Protein,Serum 5.9 g/dl (6.3-8.2)
[2024-11-20 12:55] LABS: Alkaline Phosphatase 95 U/L (38-126); Bilirubin,Total 0.3 mg/dl (0.2-1.3); Calcium 8.3 mg/dl (8.4-10.2); Glucose 76 mg/dl (74-100); Magnesium 2.0 mg/dl (1.6-2.3)
[2024-11-20 13:07] LABS: Troponin I 0.03 ng/ml (0.00-0.034)
[2024-11-20] MEDS: PROMETHAZINE HCL 25MG/ML 1ML VIAL 25 MG IV (13:13)
[2024-11-20 13:35] LABS: Anion Gap 8.8 mEq/L (5-15); Carbon Dioxide 39 mmol/L (22.0-30.0)
[2024-11-20 13:45] LABS: NT Pro Brain Natriuretic Pep. 1150 pg/mL (0-450)
--- NOTE | 2024-11-20 14:20 | ECG_ITS ---
APPROVED REPORT Exam: Resting ECG HR:69 bpm ECG Measurements Heart Rate 69 AXES DE 198 P 74 QRSd 106 QRS 85 QT 330 T 10 QTc 349 Conclusion SINUS RHYTHM INCOMPLETE RIGHT BUNDLE BRANCH BLOCK [90+ ms QRS DURATION, TERMINAL R IN V1/V2, 40+ ms S IN I/aVL/V4/V5/V6] NONSPECIFIC T-WAVE ABNORMALITY BORDERLINE ECG UNCONFIRMED REPORT Electronically signed by : Андрей Felix, 11/20/2024 15:47:33
[2024-11-20] MEDS: MORPHINE 4MG/ML SYRINGE 4 MG IV (15:24)
[2024-11-20 17:13] LABS: Troponin I 0.02 ng/ml (0.00-0.034)
[2024-11-20] MEDS: METHOCARBAMOL 500MG TABLET 500 MG PO (17:58)
== END 2024-11-20 18:15 | disposition home or self-care (01) ==
PROVIDERS: Nurse Practitioner Family; Emergency Provider Emergency Medicine
DX: S32.029A Unspecified fracture of second lumbar vertebra, initial encounter for closed fracture (principal); R11.0 Nausea; W19.XXXA Unspecified fall, initial encounter; I11.0 Hypertensive heart disease with heart failure; I50.33 Acute on chronic diastolic (congestive) heart failure
CPT/HCPCS: 71045; 72131; 80053; 83735; 83880; 84484; 85025; 93005; 96374; 96375; 99285; J2270; J2405; J2550

== ENCOUNTER 2024-12-05 13:39 | Emergency (ER) | payer MEDICARE, SELFPAY ==
--- OUTSIDE RECORDS SUMMARY | 2024-11-22 14:00 | XMS_ITS | Encounter Summary ---
Author Organization [facility] Address [address] [place] [address] Care Team Providers Care General Machinist Name Role Phone Earl Dumont MD Primary Care Provider [phone] Reason for Visit * Reason Comments Fall ER [facility] Encounter Details Date Type Department Care Team (Late st Contact Info) Description 11/22/2024 2:00 PM EDT Office Visit [facility] [address] [place] [address] Earl Dumont MD [address] [place] [address] Age-related osteoporosis with current pathological [...] place to sleep or slept in a long term (including now)? No 10/01/2021 PHQ-2 Answer Date [...] Coccygodynia Other orders - Fluzone High-Dose 65+yrs ([id number]) Ok short term pain medicine and will [...] [facility] [address] [facility] [place] [address] Earl Dumont MD [address] [place] [address] documented as of this encounter [...] documented as of this encounter Care Teams General Machinist Relationship Specialty Start Date End Date Earl Dumont MD [address] [place] [address] PCP - General Family Medicine 01/23/20 documented as of this encounter
[2024-12-05] VITALS (11 sets, daily range): BP systolic 133–191; BP diastolic 61–91; PULSE 62–68; RESP 15–16; TEMP 36.7–36.8; O2SAT 95–99; BMI 42.7
--- NOTE | 2024-12-05 13:44 | CT_ITS ---
FINAL REPORT TECHNIQUE: thin section axial CT with and without IV contrast supplemented with multiplanar 3-D reconstruction of the head. This study was performed with techniques to keep radiation doses as low as reasonably achievable, (ALARA)individualized dose reduction techniques using automated exposure control or adjustment of mA and/or kV according to the patient's size were employed. CLINICAL HISTORY: Fall on anticoagulants neck pain COMPARISON: None FINDINGS: CTA: The cranial circulation is unremarkable. There is no significant stenosis, aneurysm or occlusion. IMPRESSION: No acute process. Reviewed, Interpreted and Dictated by Torey Sloan MD Transcribed by Omayra Pabon Authenticated and [facility]
--- NOTE | 2024-12-05 13:44 | CT_ITS ---
FINAL REPORT TECHNIQUE: Pre-and postcontrast images of the abdomen through the pelvis were performed by computed tomography. Extensive 3-D reconstruction images were performed. A CTA was performed. This study was performed with techniques to keep radiation doses as low as reasonably achievable (ALARA). Individualized dose reduction techniques using automated exposure control or adjustment of mA and/or kV according to the patient's size were employed. CLINICAL HISTORY: Fall on anticoagulants diffuse back pain COMPARISON: None FINDINGS: ABDOMEN: The liver is homogeneous. The gallbladder is mildly distended. The spleen, pancreas, and adrenal glands are unremarkable. The kidneys are unremarkable. PELVIS: The appendix is not identified. There is extensive sigmoid diverticulosis without evidence of diverticulitis. The urinary bladder is unremarkable. There is no significant free fluid or adenopathy. The bony pelvis is unremarkable. CTA: There are dense vascular calcifications in the abdominal aorta and iliac vessels. The celiac axis is adequately patent. There is less than 50% stenosis of the SMA. The renal arteries are patent. IMPRESSION: Less than 50% stenosis SMA. Sigmoid diverticulosis without diverticulitis. Reviewed, Interpreted and Dictated by Troey Sloan MD Transcribed by Omayra Pabon Authenticated and [facility]
--- NOTE | 2024-12-05 13:44 | CT_ITS ---
FINAL REPORT TECHNIQUE: Axial images were obtained of the thoracic spine by computed tomography. Coronal and sagittal reconstruction process performed. This study was performed with techniques to keep radiation doses as low as reasonably achievable (ALARA). Individualized dose reduction techniques using automated exposure control or adjustment of mA and/or kV according to the patient's size were employed. CLINICAL HISTORY: Fall on anticoagulants diffuse back pain FINDINGS: There is moderate thoracic scoliosis convex to the right measuring 30 degrees. The vertebral body heights are well-preserved. There is no malalignment. No acute fracture is identified. There is moderate anterior osteophyte formation in the lower thoracic spine. There is consolidation at the left base. IMPRESSION: Moderate degenerative changes without acute fracture. Reviewed, Interpreted and Dictated by Torey Sloan MD Transcribed by Theresa Craig Authenticated and [facility]
--- NOTE | 2024-12-05 13:44 | CT_ITS ---
FINAL REPORT TECHNIQUE: The patient was injected with IV contrast. Axial images were obtained through the chest in a PE protocol. 3-D reconstruction images were also performed. Individualized dose reduction techniques using automated exposure control or adjustment of the MA and/or KV according to patient's size were employed. CLINICAL HISTORY: Fall on anticoagulants diffuse back pain COMPARISON: 08/28/2024 FINDINGS: Mediastinal vasculature is adequately opacified. No pulmonary artery filling defects are identified to suggest PE. There is no aortic dissection or aneurysm. No mediastinal mass or adenopathy. The heart size is normal. There is no pericardial or pleural effusion. Moderate consolidation at the left lung base is similar to the prior study. There are mild ground-glass opacities in both lungs, probably due to edema or pneumonitis, similar to the prior study. IMPRESSION: No pulmonary embolus or aortic aneurysm or dissection. Bilateral ground-glass opacities, edema versus pneumonitis but stable from the prior exam. Scarring/consolidation at the left lung base, stable. Reviewed, Interpreted and Dictated by Torey Sloan MD Transcribed by Omayra Pabon Authenticated and [facility]
--- NOTE | 2024-12-05 13:44 | CT_ITS ---
FINAL REPORT TECHNIQUE: Axial CT images were performed through the head. Coronal reformatted images were submitted. This study was performed with techniques to keep radiation doses as low as reasonably achievable (ALARA). Individualized dose reduction techniques using automated exposure control or adjustment of mA and/or kV according to the patient's size were employed. CLINICAL HISTORY: Fall on anticoagulants, struck head COMPARISON: 02/13/2024 FINDINGS: There is moderate atrophy with proportional ventriculomegaly. There is decreased attenuation throughout the deep white matter consistent with chronic microvascular ischemic change. There is no evidence of hemorrhage. There is no mass or edema identified. There is no abnormal extra-axial fluid seen. The sinuses are well aerated. IMPRESSION: Atrophy and microvascular ischemia without acute intracranial process. Reviewed, Interpreted and Dictated by Torey Sloan MD Transcribed by Allyssa Zaman Authenticated and [facility]
--- NOTE | 2024-12-05 13:44 | CT_ITS ---
FINAL REPORT TECHNIQUE: Axial images were obtained from skull base to the thoracic inlet by computed tomography. Coronal and sagittal reconstruction process performed. This study was performed with techniques to keep radiation doses as low as reasonably achievable (ALARA). Individualized dose reduction techniques using automated exposure control or adjustment of mA and/or kV according to the patient''s size were employed. CLINICAL HISTORY: Fall on anticoagulants diffuse back pain FINDINGS: There is no acute fracture or subluxation. There is advanced disc space narrowing from C2-3 through C6-7. There is mild reversal of lordosis. The facets are normally aligned. The soft tissues are unremarkable. Limited images of the lung apices are unremarkable. C2-3: Unremarkable. C3-4: Endplate hypertrophy eccentric to the left with moderate left neuroforaminal narrowing. C4-5: Moderate endplate hypertrophy with moderate to high-grade bilateral neuroforaminal narrowing. C5-6: Unremarkable. C6-7: Endplate hypertrophy eccentric to the right with high-grade right and moderate left neuroforaminal narrowing. C7-T1: Unremarkable. IMPRESSION: No acute fracture. Multilevel degenerative changes as above. Reviewed, Interpreted and Dictated by Torey Sloan MD Transcribed by Allyssa Zaman Authenticated and [facility]
--- NOTE | 2024-12-05 13:44 | CT_ITS ---
FINAL REPORT TECHNIQUE: Axial images were obtained of the lumbar spine by computed tomography. Coronal and sagittal reconstruction process performed. This study was performed with techniques to keep radiation doses as low as reasonably achievable (ALARA). Individualized dose reduction techniques using automated exposure control or adjustment of mA and/or kV according to the patient''s size were employed. CLINICAL HISTORY: Fall on anticoagulants diffuse back pain COMPARISON: 11/20/2024 FINDINGS: Lumbar vertebrae show normal height. There is 45 degrees lumbar scoliosis convex to the left. There are advanced hypertrophic changes of degenerative disc disease from L1-2 through L5-S1. There is no malalignment. The facets are properly aligned. There is high-grade right neuroforaminal narrowing at L1-2, L2-3, L3-4, and L4-5. There is high-grade left neuroforaminal narrowing at L4-5 and L5-S1. Moderate facet hypertrophy is seen throughout, most evident at L3-4. There are multiple nonobstructing stones in the right kidney measuring up to 3 mm. IMPRESSION: No acute fracture. Multilevel degenerative disc disease. 45 degree lumbar scoliosis. Reviewed, Interpreted and Dictated by Torey Sloan MD Transcribed by Theresa Craig Authenticated and . [facility]
--- NOTE | 2024-12-05 13:44 | CT_ITS ---
FINAL REPORT TECHNIQUE: NASCET technique utilized for stenosis evaluation. CLINICAL HISTORY: Fall on anticoagulants COMPARISON: None FINDINGS: RIGHT CAROTID: Dense calcifications at the carotid bifurcation with less than 50% stenosis. LEFT CAROTID: Dense calcifications of the carotid bifurcation with less than 50% stenosis. VERTEBRALS: The vertebrals are patent. No significant stenosis is present. IMPRESSION: Dense vascular calcifications of the carotid bifurcations with less than 50% stenosis. Reviewed, Interpreted and Dictated by Torey Sloan MD Transcribed by Omayra Pabon Authenticated and [facility]
--- NOTE | 2024-12-05 13:45 | CT_ITS ---
FINAL REPORT TECHNIQUE: Axial images through the pelvis were performed by computed tomography. Reconstructed images were obtained and reviewed. This study was performed with techniques to keep radiation doses as low as reasonably achievable, (ALARA). Individualized dose reduction techniques using automated exposure control or adjustment of mA and/or kV according to the patient's size were employed. CLINICAL HISTORY: trauma, critical injury suspected FINDINGS: There is advanced right hip joint space narrowing with subchondral sclerosis and osteophyte formation consistent with advanced osteoarthritis. There is a small degenerative cyst of the right femoral head. There is mild narrowing of the left hip joint space. The superior and inferior pubic rami are intact. There is no acute fracture. There is extensive diverticulosis without evidence of diverticulitis. IMPRESSION: Advanced right hip osteoarthritis without acute bony abnormality. Reviewed, Interpreted and Dictated by Torey Sloan MD Transcribed by Theresa Craig Authenticated and [facility]
--- NOTE | 2024-12-05 13:46 | ECG_ITS ---
APPROVED REPORT Exam: Resting ECG HR:61 bpm ECG Measurements Heart Rate 61 AXES AL 207 P 72 QRSd 118 QRS 95 QT 454 T 20 QTc 457 Conclusion SINUS RHYTHM BORDERLINE RIGHT AXIS DEVIATION [QRS AXIS > 90] INCOMPLETE RIGHT BUNDLE BRANCH BLOCK [90+ ms QRS DURATION, TERMINAL R IN V1/V2, 40+ ms S IN I/aVL/V4/V5/V6] NONSPECIFIC T-WAVE ABNORMALITY BORDERLINE ECG Electronically signed by : MICHAEL UMANZOR, 12/05/2024 16:28:31
--- NOTE | 2024-12-05 13:48 | ED_ITS ---
Discharge Plan Disposition Patient Disposition: Home, Self-Care Prescriptions Prescriptions: New ibuprofen 800 mg tablet 800 mg PO TID PRN (Reason: pain) Qty: 12 0RF methocarbamol 500 mg tablet 1,000 mg PO Q8H PRN (Reason: muscle pain and spasm) Qty: 18 0RF Rx Instructions: Do not combine with cyclobenzaprine or other muscle relaxants. No Action tramadol 50 mg tablet 50 mg PO BID Patient Comments: TAKE 1 TABLET BY MOUTH TWICE A DAY IF NEEDED FOR LEG PAIN valsartan 40 mg tablet 40 mg PO BID Patient Comments: TAKE 1 TABLET BY MOUTH TWICE DAILY ipratropium-albuterol 0.5 mg-3 mg(2.5 mg base)/3 mL solution for nebulization 3 ml inhalation QID PRN (Reason: shortness of breath or wheezing) 90 Days Qty: 270 2RF albuterol sulfate [Ventolin HFA] 90 mcg/actuation HFA aerosol inhaler 2 inh inhalation QID PRN (Reason: shortness of breath or wheezing) 90 Days Qty: 8.5 3RF Trelegy Ellipta 100-62.5-25 mcg blister with device 1 inh inhalation DAILY 90 Days Qty: 90 2RF cyclobenzaprine 10 mg tablet 10 mg PO TID PRN (Reason: muscle spasm) Qty: 15 0RF alendronate 70 mg tablet 70 mg PO WEEKLY atorvastatin 40 mg Tablet 40 mg PO HS 30 Days Qty: 30 0RF furosemide 40 mg tablet 20 mg PO BIDL 30 Days Qty: 30 0RF fluticasone propion-salmeterol 250-50 mcg/dose blister with device 1 ea INHALATION BIDRT 30 Days Qty: 60 0RF amiodarone 200 mg Tablet 400 mg PO BID 30 Days Qty: 120 0RF donepezil 10 mg tablet 10 mg PO HS 30 Days Qty: 30 0RF hydroxyzine HCl 50 mg tablet 50 mg PO Q6HP PRN (Reason: Anxiety) 30 Days Qty: 90 0RF Patient Comments: TAKE 1/2 TO 1 TABLET BY MOUTH EVERY 6 HOURS NEEDED FOR ANXIETY buspirone 30 mg tablet 30 mg PO BID 30 Days Qty: 60 0RF levothyroxine 125 mcg tablet 125 mcg PO DAILYDM 30 Days Qty: 30 0RF docusate sodium [Stool Softener] 100 mg capsule 100 mg PO BID 30 Days Qty: 60 0RF albuterol sulfate [Ventolin HFA] 90 mcg/actuation HFA aerosol inhaler 2 puff inhalation Q4HP PRN (Reason: shortness of breath or wheezing) 30 Days Qty: 8.5 0RF duloxetine 60 mg capsule,delayed release(DR/EC) 60 mg PO DAILY Qty: 30 0RF Eliquis 5 mg tablet 5 mg PO BID Qty: 180 2RF dapagliflozin propanediol [Farxiga] 10 mg Tablet 10 mg PO DAILY 30 Days Qty: 30 0RF azithromycin 250 mg tablet 250 mg PO DAILY 4 Days Qty: 4 0RF Rx Instructions: start on day 2 of therapy (day after ED visit) amoxicillin-pot clavulanate 875-125 mg tablet 1 tab PO BID 7 Days Qty: 14 0RF Referrals Follow up/Referrals: Provider,Referral, MD [Primary Care Provider, Medical] - See instructions Activity Restrictions/Add. Instructions Additional Instructions/Restrictions: At this time it was felt you are safe to be discharged home. If new or worsening symptoms please do not hesitate to return the emergency department. Your superior endplate fracture at L2 was not seen very well today on repeat imaging however you are tender there so I suspect you still have it. Remainder of your trauma imaging does not show any acute pathology. Please take your medications as prescribed and follow-up with your family doctor as soon as you are able for continued evaluation to see if you need to be referred to Dr. Graham for pain management. Clinical Impressions Clinical Impression: Fall, Closed lumbar vertebral fracture Print Language Print Language: Mongolian Discharge ED Provider: Reyes Wagner General Adult HPI General Chief complaint: Fall Stated complaint: Fall Time Seen by Provider: 12/05/24 13:43 History of Present Illness HPI narrative: Patient is a 79-year-old female with multiple comorbidities on anticoagulation presents emergency department for evaluation of traumatic injury sustained in a fall. Patient was at home when she was transferring from her chair to her motorized chair to go to the bathroom when she fell striking her head, back, sacrum. Patient is complaining of back pain, sacral pain. Not complaining of headache, but did strike head. C-spine precautions were initiated in the field. No extremity pain. No anterior chest or abdominal pain. No other acute complaints at this time. Please note that above description of symptoms, in this electronic medical record under categorization of recalled from ER triage doctor by RN are reflective of an initial nursing assessment, however, is not reflective of my full history and physical exam that was personally taken and clarified. Consequentially, this preceding description of symptoms, which may include the patient's categorized chief complaint in the EMR, do not reflect my personal clinical impression, and the ultimate description of history of present illness and patient stated complaints should be deferred to this section of the note. Unless stated otherwise or congruent with this section of the note, additional signs, symptoms, or incongruence should be interpreted as inaccurate with my clinical impression. Related Data Home Medications ?Medication ?Instructions ?Recorded ?Confirmed alendronate 70 mg tablet 70 mg PO WEEKLY 02/12/2402/01 Held on 08/09/24. Instructions: until back home tramadol 50 mg tablet 50 mg PO BID 09/19/24 valsartan 40 mg tablet 40 mg PO BID 09/19/24 Previous Rx's ?Medication ?Instructions ?Recorded atorvastatin 40 mg tablet 40 mg PO HS 30 days #30 tabs 02/15/24 albuterol sulfate 90 mcg/actuation 2 puff inhalation Q 4HP PRN 08/09/24 aerosol inhaler (Ventolin HFA) shortness of breath or wheezing 30 days #8.5 grams amiodarone 200 mg tablet 400 mg (2 x 200 mg) PO BID 3 0 days 08/09/24 #120 tabs apixaban 5 mg tablet (Eliquis) 5 mg PO BID #180 tabs 0 08/09/24 buspirone 30 mg tablet 30 mg PO BID 30 days #60 tab s 08/09/24 dapagliflozin propanediol 10 mg 10 mg PO DAILY 30 days #30 tabs 08/09/24 tablet (Farxiga) docusate sodium 100 mg capsule 100 mg PO BID 30 days # 60 caps 08/09/24 (Stool Softener) donepezil 10 mg tablet 10 mg PO HS 30 days #30 tabs 08/09/24 duloxetine 60 mg capsule,delayed 60 mg PO DAILY #30 ca ps 08/09/24 release fluticasone 250 mcg-salmeterol 50 1 ea inhalation BIDR T 30 days #60 08/09/24 mcg/dose blistr powdr for ea inhalation furosemide 40 mg tablet 20 mg (1/2 x 40 mg) PO BIDL 30 08/09/24 days #30 tabs hydroxyzine HCl 50 mg tablet 50 mg PO Q6HP PRN Anxiety 30 days 08/09/24 #90 tabs levothyroxine 125 mcg tablet 125 mcg PO DAILYDM 30 day s #30 tabs 08/09/24 amoxicillin 875 mg-potassium 1 tab PO BID 7 days #14 t abs 09/11/24 clavulanate 125 mg tablet azithromycin 250 mg tablet 250 mg PO DAILY 4 days #4 t abs 09/11/24 albuterol sulfate 90 mcg/actuation 2 inh inhalation QI D PRN shortness 09/19/24 aerosol inhaler (Ventolin HFA) of breath or wheezing 9 0 days #8.5 grams ipratropium 0.5 mg-albuterol 3 mg 3 ml inhalation QID PRN shortness 09/19/24 (2.5 mg base)/3 mL nebulization of breath or wheezing 90 days #270 soln mL fluticasone fur. 100 mcg-umeclid 1 inh inhalation ELMER Y 90 days #90 10/26/24 62.5 mcg-vilant 25 mcg ea inhalat.powder (Trelegy Ellipta) cyclobenzaprine 10 mg tablet 10 mg PO TID PRN muscle s pasm #15 11/20/24 tabs ibuprofen 800 mg tablet 800 mg PO TID PRN pain #12 t abs 12/05/24 methocarbamol 500 mg tablet 1,000 mg (2 x 500 mg) PO Q 8H PRN 12/05/24 muscle pain and spasm #18 tabs Allergies Allergy/AdvReac Type Severity Reaction Status Date / Time sulfamethoxazole (From AdvReac Mild Nausea Verified 09/19/24 13:13 Bactrim) trimethoprim (From Bactrim) AdvReac Mild Nausea Verified 09/19/24 13:13 [facility] Disclaimer: The information contained in this section may have been updated after the patient was seen, as this information can be updated by other users. Medical History Acute on chronic respiratory failure with hypoxia and hypercapnia Acute on chronic respiratory failure with hypoxemia Acute on chronic heart failure with preserved ejection fraction (HFpEF) Depression Anxiety Pulmonary embolism Osteoarthritis Skin cancer SOB (shortness of breath) on exertion Abnormal echocardiogram Hyperlipidemia (HFpEF) heart failure with preserved ejection fraction CAD (coronary artery disease) HTN (hypertension) Heart failure Elevated troponin Chronic respiratory failure with hypoxia History of COPD Second hand smoke exposure Surgical History History of left knee replacement Family History Other No significant family history Social History Smoking Status: Never smoker alcohol intake: never current occupational status: retired Travel in the last 8 weeks?: None Have you lived/traveled outside US in past 30 days?: No Contact w/someone who lives/traveled outside US past 30 days?: No Exposure to someone with infectious disease in past 14 days?: No Do you have a fever (greater than 100.4 F or 38 C)?: No Have you tested positive for COVID-19?: No Exposed to someone with COVID-19 in past 14 days?: No Do you have a sore throat?: No Do you have a cough?: No Do you have any weakness?: No Do you have any diarrhea?: No Are you experiencing any unusual bleeding?: No Do you have any muscle aches/pain?: No Do you have any abdominal pain?: No Are you experiencing loss of taste or smell?: No Other Medical History Have you received the Flu Vaccine for this season: No Have you received the Pneumonia Vaccine: Yes ROS Obtained: Yes Systems reviewed as appropriate & no additional complaints except as documented Physical Exam General General appearance: alert and in no apparent distress Head Head exam: atraumatic and normocephalic Eye Eye exam: Present PERRL and EOMI ENT ENT exam: Present mucous membranes moist Neck Neck exam: Present normal inspection Chest Chest inspection: Present normal inspection and symmetric chest wall rise Respiratory Respiratory exam: Present normal lung sounds bilaterally; Absent respiratory distress Cardiovascular Cardiovascular exam: Present regular rate and normal rhythm Abdominal Exam Abdominal exam: Present soft; Absent tenderness Extremities Exam Extremities exam: Present normal inspection Back Exam Back exam: Present other (Midline thoracolumbar, sacral tenderness, bilateral sacroiliac tenderness.) Neurological Exam Neurological exam: Present alert and CN II-XII intact Psychiatric Psychiatric exam: Present normal affect Skin Skin exam: Present warm and dry Medical Decision Making Medical Records Screening: Per USPSTF and CDC recommendations, given the prevalence of disease in our region, it is our hospital?s policy to screen for HIV and viral Hepatitis for all patients aged 18 and over and those with ongoing risk factors. [place] Inquiry Pt receiving controlled substance: No Vital Signs: 12/05/24 13:46 12/05/24 14:00 12/05/24 14:20 Temperature 98.2 F Temperature Source Oral Pulse Rate 62 63 Pulse Rate [Left Radial] 64 Respiratory Rate 15 Blood Pressure 133/91 H 146/73 H Blood Pressure [Right Arm] 133/91 H Blood Pressure Mean [Right Arm] 105 02 Sat by Pulse Oximetry 97 99 96 Oxygen Delivery Method Nasal Cannula Oxygen Flow Rate (LPM) 2 12/05/24 14:25 12/05/24 14:40 12/05/24 15:02 Temperature Temperature Source Pulse Rate 68 66 Pulse Rate [Left Radial] Respiratory Rate Blood Pressure 145/78 H 191/80 H Blood Pressure [Right Arm] Blood Pressure Mean [Right Arm] 02 Sat by Pulse Oximetry 96 95 96 Oxygen Delivery Method Nasal Cannula Oxygen Flow Rate (LPM) 2 Lab Data Lab Results 12/05/24 14:00: WBC 6.2, RBC 3.64 L, Hgb 9.7 L, Hct 32.5 L, MCV 89.3, MCH 26.6 L , MCHC 29.8 L, RDW 18.5 H, Plt Count 210, MPV 9.9, Neut % (Auto) 61.9, Lymph % (Auto) 25.6, [place] % (Auto) 9.4 H, Eos % (Auto) 1.8, Baso % (Auto) 1.0, Neut # (Auto) 3.8, Lymph # (Auto) 1.6, [place] # (Auto) 0.6, Eos # (Auto) 0.1, Baso # (Auto) 0.1, PT 11.9, INR 1.08, APTT 25.3, Sodium 134 L, Potassium 4.2, Chloride 97 L, Carbon Dioxide 39 H, Anion Gap 2.2 L, BUN 8, Creatinine 0.70, Estimated GFR 81, Est GFR ( Amer) 97, Glucose 104 H, Calcium 8.4, Total Bilirubin 0.2, AST 29, ALT 15, Alkaline Phosphatase 105, Total Protein 5.8 L, Albumin 2.4 L, Globulin 3.4 H, Albumin/Globulin Ratio 0.7 L 10/28/25 14:00 12/05/24 14:00 Orders (Tests/Meds): ED MEDICATIONS Generic Name Dose Route Start Last Admin Trade Name Yumiko PRN Reason Stop Dose Admin Sodium Chloride 10 ml 12/05/24 13:44 Sodium Chloride 0.9% 10ml Flush Syringe IV 01/04/25 13:43 NEEDED PRN Maintain IV Site Discontinued Medications Generic Name Dose Route Start Last Admin Trade Name Yumiko PRN Reason Stop Dose Admin Acetaminophen 1,000 mg 12/05/24 13:44 12/05/24 15:11 Acetaminophen 1,000mg/100ml Vial IV 12/05/24 13:45 1,000 mg ONCE ONE Administration Iopamidol 100 ml 12/05/24 14:21 12/05/24 14:25 Iopamidol-370 (76%);100ml Bottle IV 12/05/24 14:22 100 ml ONCE ONE Administration Iopamidol 60 ml 12/05/24 14:23 12/05/24 14:25 Iopamidol-370 (76%);100ml Bottle IV 12/05/24 14:24 60 ml ONCE ONE Administration Morphine Sulfate 4 mg 12/05/24 13:44 12/05/24 15:11 Morphine 4mg/Ml Syringe IV 12/05/24 13:45 4 mg ONCE ONE Administration Ondansetron HCl 4 mg 12/05/24 13:44 12/05/24 15:11 Ondansetron 4mg/2ml Vial IV 12/05/24 13:45 4 mg ONCE ONE Administration Sodium Chloride 40 ml 12/05/24 14:21 12/05/24 14:24 0.9 % Sodium Chloride 50 Ml Vial IV 12/05/24 14:22 40 ml ONCE ONE Administration Sodium Chloride 10 ml 12/05/24 14:21 12/05/24 14:24 Sodium Chloride 0.9% 10ml Syr (Rad Only) IV 12/05/24 14:22 10 ml ONCE ONE Administration Sodium Chloride 40 ml 12/05/24 14:23 12/05/24 14:25 0.9 % Sodium Chloride 50 Ml Vial IV 12/05/24 14:24 40 ml ONCE ONE Administration ORDERS Category Date Time Status CT angio abd/pel - TRAUMA Stat Cat Scan 12/05/24 13:[address] angio chest - dissection Stat Cat Scan 12/05/24 13:[address] angio head Stat Cat Scan 12/05/24 13:[address] angio neck Stat Cat Scan 12/05/24 13:[address] bony pelvis Stat Cat Scan 12/05/24 13:[address] cervical spine wo con Stat Cat Scan 12/05/24 13:[address] head/brain wo con Stat Cat Scan 12/05/24 13:[address] lumbar spine wo con Stat Cat Scan 12/05/24 13:[address] thoracic spine wo con Stat Cat Scan 12/05/24 13:44 Completed Activated Partial Thrombo Time Stat Lab 12/05/24 14:00 Completed Complete Blood Count Auto Diff Stat Lab 12/05/24 14:00 Completed Comprehensive Metabolic Panel Stat Lab 12/05/24 14:00 Completed Prothrombin Time INR Stat Lab 12/05/24 14:00 Completed ECG Data Tracing #1: Independently interpreted by me rate 61, rhythm is regular, no ST elevation in anatomical contiguous leads, QTc 457 Medical Decision Narrative: In summary patient is 79-year-old female past medical history of scrota above who presents emergency department for evaluation of traumatic injury sustained in a fall. Patient is hemodynamically stable nontoxic-appearing arrival, afebrile. Differential diagnosis includes traumatic injury sustained to the head, neck, posterior thorax, kidneys, spine, pelvis. Workup in totality will be conducted with hematologic labs, noncontrasted CT scan of the head, CTA of the head, neck, chest, abdomen, pelvis given the patient is on anticoagulants and intracranial bleeding is on the differential. CT spine without contrast to be obtained. Inventions include morphine, Tylenol, Zofran. Trauma survey remarkable for subtle superior endplate fracture at L2 with presacral edema, incidental edema versus pneumonitis stable from previous exam. Given that patient is tender over L2 I suspect subtle superior endplate fracture, however given that there is no 2 column fracture greater no significant height loss no acute intervention is warranted at this time and patient will be referred to pain management for continued evaluation. Upon repeat evaluation patient had acceptable level of pain. Patient was discharged in stable condition. Critical Care Critical Care Time Critical Care Time: No
[2024-12-05 14:07] LABS: Hematocrit 32.5 % (37.0-47.0); Hemoglobin 9.7 g/dL (12.2-16.2); Immature Granulocytes % 0.3 %; Mean Corpuscular HGB Conc 29.8 g/dL (31.8-35.4); Mean Corpuscular Hemoglobin 26.6 pg (27.0-31.2); Mean Corpuscular Volume 89.3 fl (81-99); Nucleated Red Blood Cells % 0 %; Platelet Count 210 K/mm3 (142-424); Red Blood Count 3.64 M/mm3 (4.20-5.40); Red Cell Distribution Width-SD 60.8 fL; White Blood Count 6.2 K/mm3 (4.8-10.8)
[2024-12-05 14:17] LABS: Chloride 97 mmol/L (98-107)
[2024-12-05 14:18] LABS: Activated Partial Thrombo Time 25.3 seconds (22.8-30.6); Albumin Level 2.4 g/dl (3.5-5.0); INR 1.08 (0.9-1.1); Potassium 4.2 mmoL/L (3.5-5.1); Prothrombin Time 11.9 seconds (10.1-12.5); Sodium 134 mmol/L (136-145)
[2024-12-05 14:20] LABS: Blood Urea Nitrogen 8 mg/dl (7-17); Creatinine,Serum 0.70 mg/dl (0.52-1.04); Estimated Glomerular Filt Rate 81 ml/min (>60); GFR (African American) 97 ML/MIN (>60)
--- OUTSIDE RECORDS SUMMARY | 2024-12-05 14:20 | XMS_ITS | Encounter Summary ---
[facility] Address [address] [place] [address] Care Team Providers Care Ror Engineer Name Role Phone Earl Dumont MD Primary Care Provider [phone] Reason for Visit * Reason Onset Date Comments Med Management 12/05/2024 Encounter Details Date Type Department Care Team (Late st Contact Info) Description 12/05/2024 Telephone [facility] [address] [place] [address] Earl Dumont MD [address] [place] [address] Med Management Social History Tobacco Use Types Packs/Day Years [...] Encounter - Rebeca Mckeon RegSched Rep - 12/05/2024 10:39 AM EDT Caller: Patito Garcia Relationship: Self Best call back number: [phone] What medication are you requesting: SOMETHING STRONGER THAN HYDROCODONE What are your current symptoms: LUMBAR FRACTURE Have you had these symptoms before: [x] Yes [] No Have you been treated for these symptoms before: [x] Yes [] No If a prescription is needed, what is your preferred pharmacy and phone number: [id number] - [place] - [address] [facility] [address] [facility] - [phone] - [phone] FX Additional notes: PATIENT STATED THAT THE HYDROCODONE IS LIKE TAKING A TYLENOL. documented in this encounter Plan of Treatment Upcoming Encounters Date Type Department Care Team (Late st Contact Info) Description 02/19/2025 3:00 PM EST Office Visit [facility] [address] [place] [id number] Earl Dumont MD [address] [place] [address] documented as of this encounter Visit Diagnoses Not on filedocumented in this encounter Additional Health Concerns Assessment Noted Time PHQ-2 Depression Total Score: 2 07/14/19 24 4:30 PM EDT documented as of this encounter Care Teams Ror Engineer Relationship Specialty Start Date End Date Earl Dumont MD [address] [place] [address] PCP - General Family Medicine 01/23/20 documented as of this encounter
--- OUTSIDE RECORDS SUMMARY | 2024-12-05 14:20 | XMS_ITS | Encounter Summary ---
[facility] [address] [place] [address] Care Team Providers Care Charge Operator Name Role Phone Earl Dumont MD Primary Care Provider [phone] Encounter Details Date Type Department Care Team (Latest Contact Info) Description 11/22/2024 Travel Social History Tobacco Use Types Packs/Day [...] Description 02/19/2025 3:00 PM EST Office Visit [facility] [address] [place] [address] Earl Dumont MD [address] [place] [address] documented as of this encounter Visit Diagnoses Not on filedocumented in this encounter Additional Health Concerns Assessment Noted Time PHQ-2 Depression Total Score: 2 07/14/19 24 4:30 PM EDT documented as of this encounter Care Teams Charge Operator Relationship Specialty Start Date End Date Earl Dumont MD [address] [place] [address] PCP - General Family Medicine 01/23/20 documented as of this encounter
--- OUTSIDE RECORDS SUMMARY | 2024-12-05 14:20 | XMS_ITS | Encounter Summary ---
[facility] Organization [facility] Address [address] [place] [address] Care Team Providers Care In Home Sales Representative Name Role Phone Earl Dumont MD Primary Care Provider [phone] Reason for Visit * Reason Onset Date Comments Med Refill 07/17/2024 Encounter Details Date Type Department Care Team (Late st Contact Info) Description 07/17/2024 Refill [facility] [address] [place] [address] Earl Dumont MD [address] [place] [address] Generalized anxiety disorder Social History [...] Garcia Relationship: Self Best call back number: [phone] Requested Prescriptions: Requested Prescriptions Pending Prescriptions Disp Refills hydrOXYzine (ATARAX) 50 MG tablet 20 tablet 1 Sig: Take 0.5-1 tablets by mouth Every 6 (Six) Hours As Needed for Anxiety. Pharmacy where request should be sent: [id number] - [place], [place] - [address] [address] [address] [facility] [address] - [phone] - [phone] FX Last office visit with prescribing clinician: [...] voicemail: [] Yes [] No Farhad Harkins Rep 07/17/24 13:26 EDT documented in this encounter Plan of Treatment Upcoming Encounters Date Type Department Care Team (Late st Contact Info) Description 02/19/2025 3:00 PM EST Office Visit [facility] [address] [place] [id number] Earl Dumotn MD [address] [place] [address] documented as of this encounter Visit Diagnoses Diagnosis Generalized anxiety disorder documented in this encounter Additional Health Concerns Assessment Noted Time PHQ-2 Depression Total Score: 2 07/14/19 24 4:30 PM EDT documented as of this encounter Care Teams In Home Sales Representative Relationship Specialty Start Date End Date Earl Dumont MD [address] [place] [address] PCP - General Family Medicine 01/23/20 documented as of this encounter
--- OUTSIDE RECORDS SUMMARY | 2024-12-05 14:20 | XMS_ITS | Encounter Summary ---
[facility] [address] [place] [address] Care Team Providers Care Portable Feed Mill Operator Name Role Phone Earl Dumont MD Primary Care Provider [phone] Reason for Visit * Reason Onset Date Comments ERROR 10/06/2024 Encounter Details Date Type Department Care Team (Late st Contact Info) Description 10/06/2024 Telephone [facility] [address] [place] [address] Earl Dumont MD [address] [place] [address] ERROR Social History Tobacco Use [...] [facility] [address] [place] [address] Earl Dumont MD [address] [place] [address] documented as of this encounter Visit Diagnoses Not on filedocumented in this encounter Additional Health Concerns Assessment Noted Time PHQ-2 Depression Total Score: 2 07/14/19 24 4:30 PM EDT documented as of this encounter Care Teams Portable Feed Mill Operator Relationship Specialty Start Date End Date Earl Dumont MD [address] [place] [address] PCP - General Family Medicine 01/23/20 documented as of this encounter
--- OUTSIDE RECORDS SUMMARY | 2024-12-05 14:20 | XMS_ITS | Encounter Summary ---
[facility] [address] [place] [address] Care Team Providers Care Golf Course Assistant Name Role Phone Earl Dumont MD Primary Care Provider [phone] Reason for Visit * Reason Comments Med Refill Encounter Details Date Type Department Care Team (Late st Contact Info) Description 05/08/2022 Refill [facility] [address] [place] [address] Earl Dumont MD [address] [place] [address] Generalized anxiety disorder Social History [...] [facility] [address] [place] [address] Earl Dumont MD [address] [place] [place] [address] documented as of this encounter Visit Diagnoses Diagnosis Generalized anxiety disorder documented in this encounter Care Teams Golf Course Assistant Relationship Specialty Start Date End Date Earl Dumont MD [address] [place] [address] PCP - General Family Medicine 01/23/20 documented as of this encounter
[2024-12-05 14:21] LABS: Alanine Aminotransferase 15 U/L (12-78); Albumin/Globulin Ratio 0.7 (1.1-1.8); Alkaline Phosphatase 105 U/L (38-126); Anion Gap 2.2 mEq/L (5-15); Aspartate Amino Transferase 29 U/L (14-36); Bilirubin,Total 0.2 mg/dl (0.2-1.3); Calcium 8.4 mg/dl (8.4-10.2); Carbon Dioxide 39 mmol/L (22.0-30.0); Globulin 3.4 g/dL (1.3-3.2); Glucose 104 mg/dl (74-100); Total Protein,Serum 5.8 g/dl (6.3-8.2)
--- OUTSIDE RECORDS SUMMARY | 2024-12-05 14:21 | XMS_ITS | Encounter Summary ---
[facility] Organization [facility] Address [address] [place] [address] Care Team Providers Care Field Spec Name Role Phone Earl Dumont MD Primary Care Provider [phone] Reason for Visit * Reason Comments Med Refill Encounter Details Date Type Department Care Team (Late st Contact Info) Description 11/14/2024 Refill [facility] [address] [place] [address] Earl Dumont MD [address] [place] [address] Generalized anxiety disorder Social History [...] place to sleep or slept in a care home (including now)? No 10/01/2021 PHQ-2 Answer [...] 3:00 PM EST Office Visit [facility] [address] [place] [address] Earl Dumont MD [address] [address] documented as of this encounter Visit Diagnoses Diagnosis Generalized anxiety disorder documented in this encounter Additional Health Concerns Assessment Noted Time PHQ-2 Depression Total Score: 2 07/14/19 24 4:30 PM EDT documented as of this encounter Care Teams Field Spec Relationship Specialty Start Date End Date Earl Dumont MD [address] [place], [place] [id number] PCP - General Family Medicine 01/23/20 documented as of this encounter
--- OUTSIDE RECORDS SUMMARY | 2024-12-05 14:21 | XMS_ITS | Encounter Summary ---
[facility] Address [address] [place] [address] Care Team Providers Care Surplus Property Disposal Agent Name Role Phone Earl Dumont MD Primary Care Provider [phone] Reason for Visit * Reason Onset Date Comments Med Refill 10/02/2024 Encounter Details Date Type Department Care Team (Late st Contact Info) Description 10/02/2024 Refill [facility] [address] [place] [address] Earl Dumont MD [address] [place] [address] Social History Tobacco Use Types [...] Garcia Relationship: Self Best call back number: [phone] Requested Prescriptions: Requested Prescriptions Pending Prescriptions Disp Refills nystatin (MYCOSTATIN) 288262 UNIT/GM powder 60 g 1 Sig: Apply topically to the appropriate area as directed 3 (Three) Times a Day. Pharmacy where request should be sent: [id number] - [place], [place] - [address] [address] [address] [facility] - [phone] - [phone] FX Last office visit with prescribing clinician: [...] Visit [facility] [address] [facility] [place] [address] Earl Dumont MD [address] [facility] [place] [place] [address] documented as of this encounter Visit Diagnoses Not on filedocumented in this encounter Additional Health Concerns Assessment Noted Time PHQ-2 Depression Total Score: 2 07/14/19 24 4:30 PM EDT documented as of this encounter Care Teams Surplus Property Disposal Agent Relationship Specialty Start Date End Date Earl Dumont MD [address] [place] [address] PCP - General Family Medicine 01/23/20 documented as of this encounter
--- OUTSIDE RECORDS SUMMARY | 2024-12-05 14:21 | XMS_ITS | Encounter Summary ---
[facility] Address [address] [place] [address] Care Team Providers Care Core Baker Name Role Phone Earl Dumont MD Primary Care Provider [phone] Reason for Visit * Reason Onset Date Comments CALLBACK 11/15/2024 Encounter Details Date Type Department Care Team (Late st Contact Info) Description 11/15/2024 Telephone [facility] [address] [place] [address] Earl Dumont MD [address] [place] [address] CALLBACK Social History Tobacco Use [...] Rep - 11/15/2024 10:56 AM EDT Caller: ANDREZ COX Relationship: Grandchild Best call back number: [phone] What was the call regarding: PATIENTS GRANDDAUGHTER [...] Description 02/19/2025 3:00 PM EST Office Visit [facility] [address] [facility] [place] [phone] Earl Dumont MD [address] [facility] [place] [address] documented as of this encounter Visit Diagnoses Not on filedocumented in this encounter Additional Health Concerns Assessment Noted Time PHQ-2 Depression Total Score: 2 07/14/19 24 4:30 PM EDT documented as of this encounter Care Teams Core Baker Relationship Specialty Start Date End Date Earl Dumont MD [address] [place] [address] PCP - General Family Medicine 01/23/20 documented as of this encounter
--- OUTSIDE RECORDS SUMMARY | 2024-12-05 14:21 | XMS_ITS | Encounter Summary ---
[facility] Address [address] [place] [address] Care Team Providers Care Director Of Assisted Living Name Role Phone Earl Dumont MD Primary Care Provider [phone] Reason for Visit * Reason Comments Med Refill Encounter Details Date Type Department Care Team (Late st Contact Info) Description 10/12/2024 Refill [facility] [address] [place] [address] Earl Dumont MD [address] [place] [address] Generalized anxiety disorder Social History [...] Description 02/19/2025 3:00 PM EST Office Visit [facility] [address] [address] Earl Dumont MD [address] [address] documented as of this encounter Visit Diagnoses Diagnosis Generalized anxiety disorder documented in this encounter Additional Health Concerns Assessment Noted Time PHQ-2 Depression Total Score: 2 07/14/19 24 4:30 PM EDT documented as of this encounter Care Teams Director Of Assisted Living Relationship Specialty Start Date End Date Earl Dumont MD [address] [place], [place] [id number] PCP - General Family Medicine 01/23/20 documented as of this encounter
--- OUTSIDE RECORDS SUMMARY | 2024-12-05 14:21 | XMS_ITS | Encounter Summary ---
[facility] [address] [place] [address] Care Team Providers Care Database Admin Name Role Phone Earl Dumont MD Primary Care Provider [phone] Reason for Visit * Reason Onset Date Comments Med Refill 10/13/2024 Encounter Details Date Type Department Care Team (Late st Contact Info) Description 10/13/2024 Refill [facility] [address] [place] [address] Earl Dumont MD [address] [place] [address] Generalized anxiety disorder Social History [...] in a mcc (including now)? No 10/01/2021 PHQ-2 Answer Date [...] Pharmacy where request should be sent: [facility] - [place] [address] [phone] - [phone] FX Last office visit with prescribing clinician: 08/30/2024 Last telemedicine visit with prescribing clinician: Visit date not found Next office visit with prescribing clinician: 02/19/2025 Does the patient have less than a 3 day supply: [x] Yes [] No Farhad Alan 10/13/24 14:54 EDT documented in this encounter Plan of Treatment Upcoming Encounters Date Type Department Care Team (Late st Contact Info) Description 02/19/2025 3:00 PM EST Office Visit [facility] [address] [facility] [place] [address] Earl Dumont MD [address] [place] [address] documented as of this encounter Visit Diagnoses Diagnosis Generalized anxiety disorder documented in this encounter Additional Health Concerns Assessment Noted Time PHQ-2 Depression Total Score: 2 07/14/19 24 4:30 PM EDT documented as of this encounter Care Teams Database Admin Relationship Specialty Start Date End Date Earl Dumont MD [address] [place] [address] PCP - General Family Medicine 01/23/20 documented as of this encounter
--- OUTSIDE RECORDS SUMMARY | 2024-12-05 14:21 | XMS_ITS | Encounter Summary ---
[facility] Address [address] [place] [address] Care Team Providers Care Circuitry Negative Inspector Name Role Phone Earl Dumont MD Primary Care Provider [phone] Reason for Visit * Reason Onset Date Comments Med Refill 10/11/2024 Encounter Details Date Type Department Care Team (Late st Contact Info) Description 10/11/2024 Refill [facility] [address] [place] [address] Earl Dumont MD [address] [place] [address] Essential hypertension; Memory change; Recurrent [...] Garcia Relationship: Self Best call back number: [phone] Requested Prescriptions: Requested Prescriptions Pending Prescriptions Disp [...] Day. Pharmacy where request should be sent: [facility] - [place] [address] - [phone] [facility] [phone] FX Last office visit with prescribing clinician: 08/30/2024 Last telemedicine visit with prescribing clinician: Visit date not found Next office visit with prescribing clinician: 02/19/2025 Additional details provided by patient: PATIENT HAS CALLED REQUESTING ALL NEW PRESCRIPTIONS ON ABOVE MEDICATIONS TO BE SENT TO HER NEW PHARMACY. PATIENT STATES HER PRIMARY PHARMACY SHOULD BE [facility]. Does the patient have less than [...] [facility] [address] [facility] [place] [address] Earl Dumont MD [address] [place] [address] documented as of this encounter Visit Diagnoses Diagnosis Essential hypertension Unspecified essential hypertension Memory change Memory loss Recurrent major depressive disorder, in full remission Generalized anxiety disorder documented in this encounter Additional Health Concerns Assessment Noted Time PHQ-2 Depression Total Score: 2 07/14/19 24 4:30 PM EDT documented as of this encounter Care Teams Circuitry Negative Inspector Relationship Specialty Start Date End Date Earl Dumont MD [address] [place] [address] PCP - General Family Medicine 01/23/20 documented as of this encounter
--- OUTSIDE RECORDS SUMMARY | 2024-12-05 14:21 | XMS_ITS | Encounter Summary ---
[facility] Address [address] [place] [address] Care Team Providers Care Log Deckman Name Role Phone Earl Dumont MD Primary Care Provider [phone] Reason for Visit * Reason Onset Date Comments Med Refill 11/21/2024 Encounter Details Date Type Department Care Team (Late st Contact Info) Description 11/21/2024 Telephone [facility] [address] [place] [address] Earl Dumont MD [address] [place] [address] Med Refill Social History Tobacco [...] Telephone Encounter - Earl Dumont MD - 11/21/2024 4:51 PM EDT Don't think she is on valsartan. I think she is on entresto, shouold not take this and valsartan together! * Telephone Encounter - Mallika Stockton RegSched Rep - 11/21/2024 10:07 AM EDT Caller: SHAIKLA COX Relationship: Emergency Contact Best call back number: [phone] Requested Prescriptions: VALSARTAN (DIDN'T SEE THIS ON HER LIST) Pharmacy where request should be sent: [id number] - [place], [place] - [address] [address] [address] [facility] - [phone] - [phone] Last office visit with prescribing clinician: 11/15/2024 Last telemedicine visit with prescribing clinician: 11/15/2024 Next office visit with prescribing clinician: 11/22/2024 Additional details provided by patient: PATIENT HAS 2 LEFT Does the patient have less than a 3 day supply: [x] Yes [] No Farhad Cruz 11/21/24 10:08 EDT documented in this encounter Plan of Treatment Upcoming Encounters Date Type Department Care Team (Late st Contact Info) Description 02/19/2025 3:00 PM EST Office Visit [facility] [address] [place] [phone] Earl Dumont MD [address] [place] [address] documented as of this encounter Visit Diagnoses Not on filedocumented in this encounter Additional Health Concerns Assessment Noted Time PHQ-2 Depression Total Score: 2 07/14/19 24 4:30 PM EDT documented as of this encounter Care Teams Log Deckman Relationship Specialty Start Date End Date Earl Dumont MD [address] [place] [address] PCP - General Family Medicine 01/23/20 documented as of this encounter
--- OUTSIDE RECORDS SUMMARY | 2024-12-05 14:21 | XMS_ITS | Encounter Summary ---
[facility] Address [address] [place] [address] Care Team Providers Care Hide Shaker Name Role Phone Earl Dumont MD Primary Care Provider [phone] Reason for Visit * Reason Onset Date Comments Med Refill 10/26/2024 Encounter Details Date Type Department Care Team (Late st Contact Info) Description 10/26/2024 Telephone [facility] [address] [place] [address] Earl Dumont MD [address] [place] [address] Med Refill Social History Tobacco [...] SHAKILA Relationship: GRANDDAUGHTER Best call back number: [phone] What medication are you requesting: TYLENOL What are your current symptoms: CONGESTION, RUNNY NOSE, CHAFED NOSTRILS How long have you been experiencing symptoms: DAYS Have you had these symptoms before: [x] Yes [] No Have you been treated for these symptoms before: [x] Yes [] No If a prescription is needed, what is your preferred pharmacy and phone number: [facility] [id number] - [place] - [address] [facility] [phone] [facility] [phone] FX Additional notes: documented in this encounter Plan of Treatment Upcoming Encounters Date Type Department Care Team (Late st Contact Info) Description 02/19/2025 3:00 PM EST Office Visit [facility] [address] [place] [address] Earl Dumont MD [address] [place] [address] documented as of this encounter Visit Diagnoses Not on filedocumented in this encounter Additional Health Concerns Assessment Noted Time PHQ-2 Depression Total Score: 2 07/14/19 24 4:30 PM EDT documented as of this encounter Care Teams Hide Shaker Relationship Specialty Start Date End Date Earl Dumont MD [address] [place] [address] PCP - General Family Medicine 01/23/20 documented as of this encounter
--- OUTSIDE RECORDS SUMMARY | 2024-12-05 14:21 | XMS_ITS | Encounter Summary ---
[facility] Address [address] [place] [address] Care Team Providers Care Set Up Mold Technician Name Role Phone Earl Dumont MD Primary Care Provider [phone] Reason for Visit * Reason Onset Date Comments Med Refill 11/13/2024 Encounter Details Date Type Department Care Team (Late st Contact Info) Description 11/13/2024 Refill [facility] [address] [place] [address] Earl Dumont MD [address] [place] [address] Social History Tobacco Use Types [...] Day. Pharmacy where request should be sent: [id number] - [place], [place] - [address] [address] [address] [facility] [phone] [facility] [phone] FX Last office visit with prescribing clinician: [...] 02/19/2025 3:00 PM EST Office Visit [facility] [address] [facility] [place] [phone] Earl Dumont MD [address] [facility] [place] [address] documented as of this encounter Visit Diagnoses Not on filedocumented in this encounter Additional Health Concerns Assessment Noted Time PHQ-2 Depression Total Score: 2 07/14/19 24 4:30 PM EDT documented as of this encounter Care Teams Set Up Mold Technician Relationship Specialty Start Date End Date Earl Dumont MD [address] [place] [address] PCP - General Family Medicine 01/23/20 documented as of this encounter
--- OUTSIDE RECORDS SUMMARY | 2024-12-05 14:21 | XMS_ITS | Encounter Summary ---
Author [facility] Address [address] [place] [address] Care Team Providers Care Neonatal Nurse Name Role Phone Earl Dumont MD Primary Care Provider [phone] Reason for Referral * MRI/CAT/PET Scan (Routine) - Closed Specialty Diagnoses / Procedures Referred By Contac t Referred To Contact Radiology Diagnoses Lung nodule Procedures CT Chest Without Contrast Earl Dumont MD [address] [place] [address] Phone: tel: fax: [facility] [address] [place] [address] Phone: tel: Referral ID Status Reason Start Date Expiration Date Visits Re quested Visits Authorized [id number] Closed 09/27/2024 12/27/2025 1 1 Encounter Details Date Type Department Care Team (Late st Contact Info) Description 09/27/2024 Results Follow-Up [facility] [address] [place] [address] Earl Dumont MD [address] [place] [address] Social History Tobacco Use Types [...] Description 02/19/2025 3:00 PM EST Office Visit [facility] [address] [place] [address] Earl Dumont MD [address] [place] [address] Scheduled Orders Name Type Priority [...] documented as of this encounter Care Teams Neonatal Nurse Relationship Specialty Start Date End Date Earl Dumont MD [address] [place] [address] PCP - General Family Medicine 01/23/20 documented as of this encounter
--- OUTSIDE RECORDS SUMMARY | 2024-12-05 14:21 | XMS_ITS | Encounter Summary ---
[facility] Address [address] [place] [address] Care Team Providers Care Director Marketing Analytics Name Role Phone Earl Dumont MD Primary Care Provider [phone] Encounter Details Date Type Department Care Team (Late st Contact Info) Description 11/09/2024 Telephone [facility] [address] [facility] [place] [address] Earl Dumont MD [address] [facility] [place] [address] Social History Tobacco Use Types [...] Description 02/19/2025 3:00 PM EST Office Visit [facility] [address] [phone] aErl Dumont MD [address] [address] documented as of this encounter Visit Diagnoses Not on filedocumented in this encounter Additional Health Concerns Assessment Noted Time PHQ-2 Depression Total Score: 2 07/14/19 24 4:30 PM EDT documented as of this encounter Care Teams Director Marketing Analytics Relationship Specialty Start Date End Date Earl Dumont MD [address] [place] [address] PCP - General Family Medicine 01/23/20 documented as of this encounter
--- OUTSIDE RECORDS SUMMARY | 2024-12-05 14:22 | XMS_ITS | Encounter Summary ---
Author Organization [facility] Address [address] [place] [address] Care Team Providers Care Assistant Community Director Name Role Phone Earl Dumont MD Primary Care Provider [phone] Reason for Visit * Reason Comments Med Refill Encounter Details Date Type Department Care Team (Late st Contact Info) Description 04/10/2022 Refill [facility] [address] [place] [address] Earl Dumont MD [address] [place] [address] Essential hypertension Social History Tobacco [...] a nursing home (including now)? No 10/01/2021 Comments No Sex [...] [facility] [address] [place] [address] Earl Dumont MD [address] [place] [address] documented as of this encounter Visit Diagnoses Diagnosis Essential hypertension Unspecified essential hypertension documented in this encounter Additional Health Concerns Assessment Noted Time PHQ-2 Depression Total Score: 1 04/26/19 22 2:42 PM EDT documented as of this encounter Care Teams Assistant Community Director Relationship Specialty Start Date End Date Earl Dumont MD [address] [place] [address] PCP - General Family Medicine 01/23/20 documented as of this encounter
--- OUTSIDE RECORDS SUMMARY | 2024-12-05 14:22 | XMS_ITS | Clinical Summary ---
[facility] Address [address] [place] [address] Care Team Providers Care Risk Management Director Name Role Phone Earl Dumont MD Primary Care Provider [phone] Allergies Active Allergy Reactions Criticality Noted Date [...] for Wheezing. 300 mL 12 024 Active albuterol sulfate HFA 108 (90 Base) [...] MOUTH EVERY DAY 30 tablet 025 Active Farxiga 10 MG tablet TAKE ONE TABLET BY MOUTH EVERY DAY 30 tablet 025 Active amiodarone (PACERONE) 200 MG tablet Take 2 tablets by mouth Every 12 (Twelve) Hours. 120 tablet 5 025 Active dapagliflozin (Farxiga) 5 MG tablet tablet Take 1 tablet by mouth Daily. 90 tablet 1 025 Active traMADol (ULTRAM) 50 MG tabletIndications :Right leg pain,Pain of right lower extremity 1 PO BID PRN leg pain 60 tablet 025 Active nystatin (MYCOSTATIN) 136787 UNIT/GM powder Apply topically to the appropriate [...] FOR ANXIETY 20 tablet 1 025 Active HYDROcodone-aceta minophen (NORCO) 5-325 MG per tabletIndications :Age-related osteoporosis with current pathological fracture with routine healing, subsequent encounter,Alanna parisi fracture of L2 vertebra with routine healing, subsequent encounter 1/2-1 PO Q 12 hours PRN pain form compression fracture 20 tablet 025 Active pantoprazole (Protonix) 40 MG EC tabletIndications :Gastroesophageal reflux disease, unspecified whether esophagitis present Take 1 tablet by mouth Daily. 30 tablet 5 025 Active nystatin (MYCOSTATIN) 100,000 unit/mL suspension Swish and swallow 5 mL 4 (Four) Times a Day. 250 mL 1 025 2024 Discontinued(R eorder) famotidine (PEPCID) 40 MG tabletIndications :Gastroesophageal reflux disease, unspecified whether esophagitis present Take 1 tablet by mouth Daily. 30 tablet 1 025 2024 Discontinued hydrOXYzine (ATARAX) 50 MG tabletIndications :Generalized anxiety [...] Encounters Date Type Department Care Team Description 12/05/2024 Telephone [facility] [address] [address] Earl Dumont MD Med Management 11/22/2024 2:00 PM EDT Office Visit [facility] [address] [address] Earl Dumont MD Age-related osteoporosis with current pathological fracture with routine healing, subsequent encounter (Primary Dx); Compression fracture of L2 vertebra with routine healing, subsequent encounter; Gastroesophageal reflux disease, unspecified whether esophagitis present; Coccygodynia 11/22/2024 Travel 11/21/2024 [facility] [address] [facility] [place] [address] Earl Dumont MD Med Refill 11/15/2024 [facility] [address] [facility] [place] [address] Earl Dumont MD CALLBACK 11/14/2024 Refill [facility] [address] [facility] [place] [address] Earl Dumont MD Generalized anxiety disorder 11/13/2024 Refill [facility] [address] [facility] [place] [address] Earl Dumont MD 11/09/2024 [facility] [address] [facility] [place] [address] Earl Dumont MD 10/26/2024 [facility] [address] [facility] [place] [address] Earl Dumont MD Med Refill 10/13/2024 [facility] [address] [facility] [place] [address] Earl Dumont MD Generalized anxiety disorder 10/12/2024 Refill [facility] [address] [facility] [place] [address] Earl Dumont MD Generalized anxiety disorder 10/11/2024 Refill [facility] [address] [facility] [place] [address] Earl Dumont MD Essential hypertension; Memory change; Recurrent major depressive disorder, in full remission; Generalized anxiety disorder 10/06/2024 Telephone [facility] [address] [place] [address] Earl Dumont MD ERROR 10/02/2024 Refill [facility] [address] [place] [address] Earl Dumont MD 09/27/2024 Results Follow-Up [facility] [address] [place] [address] Earl Dumont MD 09/26/2024 Telephone [facility] [address] [place] [address] Earl Dumont MD Advice Only from Last 3 Months Immunizations Immunization Administration Dates Next Due COVID-19 (MODERNA) 1st,2nd,3rd Dose Monovalent 0 04/17/2020,03/20/2020 Flu Vaccine Quad PF >36MO 12/13/2015 Fluzone High-Dose 65+YRS 11/22/2024 Fluzone High-Dose 65+yrs 02/03/2021 Influenza Seasonal Injectable [...] Pulse 60 11/22/2024 1:41 PM EDT Temperature 36.2 C (97.1 F) 06/26/2024 12:26 PM EDT Respiratory Rate 20 11/22/2024 1:41 PM EDT Oxygen Saturation 92% 11/22/2024 1:41 PM EDT Inhaled Oxygen Concentration - - Weight 105 kg (232 lb) 11/22/2024 1:41 PM EDT Height 160 cm (5' 2.99 ) 11/22/2024 1:41 PM EDT Body Mass Index 41.11 11/22/2024 1:41 PM EDT Plan of Treatment Upcoming Encounters Date Type Department Care Team (Late st Contact Info) Description 02/19/2025 3:00 PM EST Office Visit [facility] [address] [place] [address] Earl Dumont MD [address] [place] [address] Health Maintenance Due Date Last Done Comments ZOSTER VACCINE (1 of 2) 1994 TDAP/TD VACCINES (2 - Tdap) 12/17/2008 12/17/1998 RSV Vaccine - Adults (1 - 1- dose 75+ series) 2019 COVID-19 Vaccine (4 - 2024-2 6 season) 2024 09/09/2021, 04/17/2020, 03/20/2020 LIPID PANEL 12/05/2024 12/06/2023, 03/0 05/2023, 10/02/2022, Additional history exists ANNUAL WELLNESS VISIT 08/21/2025 08/21/2024 , 07/14/2023, 07/01/2022, Additional history exists Pneumococcal Vaccine 50+ Completed 021, 01/02/2019, 12/30/2015 INFLUENZA VACCINE Completed 11/22/2024, , 10/03/2019, Additional history exists DXA SCAN Discontinued Medical Devices Implanted Type Area Cook Fruit Device Identifier Shelf Expiration Date Model / Serial / Lot Cmt Bone Simplex/P Full Dose 10/Pk - [id number] Implanted:Qty : 1 on 08/28/2021 by Nilesh Hare MD at [facility] Implant Left: Knee [employer] [id number] 09/08/2023 [id number] / / [id number] Cmt Bone Simplex/P Full Dose 10/Pk - [id number] Implanted:Qty : 1 on 08/28/2021 by Nilesh Hare MD at [facility] Implant Left: Knee [employer] 11/08/2023 [id number] / / [id number] Dev Contrl Tiss Stratafix Spiral Pdo Bidir 1 [id number] - [id number] Implanted:Qty : 1 on 08/28/2021 by Nilesh Hare MD at [facility] Implant Left: Knee [employer] 06/07/2026 [id number] / / [id number] Insrt Tib/Kn Triath Ps A/Poly Sz4 9mm - [id number] Implanted:Qty : 1 on 08/28/2021 by Nilesh Hare MD at [facility] Implant Left: Knee [employer] [id number] 12/27/2021 [id number] / / [id number] Comp Fem Triath Ps Cmt No4 Lt - [id number] Implanted:Qty : 1 on 08/28/2021 by Nilesh Hare MD at [facility] Implant Left: Knee [employer] [id number] 06/18/2025 [id number] / / [id number] Peg Fem Fix Triathlon Dist Mod Pk/2 - [id number] Implanted:Qty : 1 on 08/28/2021 by Nilesh Hare MD at [facility] Implant Left: Knee [employer] [id number] 06/01/2025 [id number] / / [id number] Pat Triath Asym X3 [id number] - [id number] Implanted:Qty : 1 on 08/28/2021 by Nilesh Hare MD at [facility] Implant Left: Knee [employer] [id number] 06/21/2026 [id number] / / [id number] [facility] Med Demand [place] - [id number] Implanted:Qty : 1 on 08/28/2021 by Nilesh [...] 8:17 AM EDT Performed at: [facility] - [facility] [address] [place] [address] [id number] [employer] Machine Operator: Osito Cabezas PhD, Phone: [phone] Patient Fasting: N us Earl Dumont MD LAB BLOOD ORDERABLES Final Resu lt [facility] [employer] [facility] (AMBULATORY) [address] [id number], [facility] [address] [place] [address], from Last 3 Months or Most Recently [...] Of Support Discussed With: Patient Care Teams Risk Management Director Relationship Specialty Start Date End Date Earl Dumont MD [address] [place] [address] PCP - General Family Medicine 01/23/20
[2024-12-05] MEDS: 0.9 % SODIUM CHLORIDE 50 ML VIAL 40 ML IV ×2 (14:24→14:25)
[2024-12-05] MEDS: SODIUM CHLORIDE 0.9% 10ML SYR (RAD ONLY) 10 ML IV (14:24)
[2024-12-05] MEDS: IOPAMIDOL-370 (76%);100ML BOTTLE 60 ML IV (14:25)
[2024-12-05] MEDS: IOPAMIDOL-370 (76%);100ML BOTTLE 100 ML IV (14:25)
[2024-12-05] MEDS: MORPHINE 4MG/ML SYRINGE 4 MG IV (15:11)
[2024-12-05] MEDS: ACETAMINOPHEN 1,000MG/100ML VIAL 1000 MG IV (15:11)
[2024-12-05] MEDS: ONDANSETRON 4MG/2ML VIAL 4 MG IV (15:11)
== END 2024-12-05 18:30 | disposition home or self-care (01) ==
PROVIDERS: Emergency Provider Emergency Medicine
DX: S32.029A Unspecified fracture of second lumbar vertebra, initial encounter for closed fracture (principal); M54.59 Other low back pain; W19.XXXA Unspecified fall, initial encounter
CPT/HCPCS: 70450; 70496; 70498; 71275; 72125; 72128; 72131; 72192; 74174; 80053; 85025; 85610; 85730; 93005; 96374; 96375; 99285; J0131; J2270; J2405; Q9967

== ENCOUNTER 2025-01-08 16:57 | Outpatient (CLI) | payer MEDICARE, SELFPAY ==
--- OUTSIDE RECORDS SUMMARY | 2024-11-22 13:00 | XMS_ITS | Encounter Summary ---
Author Organization [facility] Address [address] [place] [address] Care Team Providers Care Frame Wirer Name Role Phone Earl Dumont MD Primary Care Provider [phone] Reason for Visit * Reason Comments Fall ER [facility] Encounter Details Date Type Department Care Team (Late st Contact Info) Description 11/22/2024 2:00 PM EDT Office Visit [facility] [address] [place] [address] Earl Dumont MD [address] [place] [address] Age-related osteoporosis with current pathological fracture with routine healing, subsequent encounter (Primary Dx); Compression fracture of L2 vertebra with routine healing, subsequent encounter; Gastroesophageal reflux disease, unspecified whether esophagitis present; Coccygodynia Social History Tobacco Use Types Packs/Day Years [...] Sign Reading Time Taken Comments Blood Pressure 138/82 11/22/2024 1:41 PM EDT Pulse 60 11/22/2024 1:41 PM EDT Temperature - - Respiratory Rate 20 11/22/2024 1:41 PM EDT Oxygen Saturation 92% 11/22/2024 1:41 PM EDT Inhaled Oxygen Concentration - - Weight 105 kg (232 lb) 11/22/2024 1:41 PM EDT Height 160 cm (5' 2.99 ) 11/22/2024 1:41 PM EDT Body Mass Index 41.11 11/22/2024 1:41 PM EDT documented in this encounter Progress Notes * Earl Dumont MD - 11/22/2024 2:00 PM EDT Subjective Patito Garcia is a 79 y.o. female. History of Present Illness She had fallen recently and hurt her back at home Fell wile getting off the scale at home They did see compression fracture Her tailbone is painful Hurts to sit! GERD has not been doing well Pepcid just not helping well Even drinking things bothers her The following portions of the patient's history were reviewed and updated as appropriate: allergies, current medications, past family history, past medical history, past social history, past surgicalhistory, and problem list. Review of Systems Objective Physical Exam Vitals and nursing note reviewed. Constitutional: General: She is not in acute distress. Appearance: Normal appearance. She is well-developed. Cardiovascular: Rate and Rhythm: Normal rate and regular rhythm. Heart sounds: Normal heart sounds. Pulmonary: Breath sounds: Normal breath sounds. Comments: Pursed lip breathing Musculoskeletal: Comments: wheelchair Neurological: Mental Status: She is alert and oriented to person, place, and time. Psychiatric: Mood and Affect: Mood normal. Behavior: Behavior normal. Thought Content: Thought content normal. Judgment: Judgment normal. Assessment & Plan Diagnoses and all orders for this visit: 1. Age-related osteoporosis with current pathological fracture with routine healing, subsequent encounter (Primary) - HYDROcodone-acetaminophen (NORCO) 5-325 MG per tablet; 1/2-1 PO Q 12 hours PRN pain form compression fracture Dispense: 20 tablet; Refill: 0 2. Compression fracture of L2 vertebra with routine healing, subsequent encounter - HYDROcodone-acetaminophen (NORCO) 5-325 MG per tablet; 1/2-1 PO Q 12 hours PRN pain form compression fracture Dispense: 20 tablet; Refill: 0 3. Gastroesophageal reflux disease, unspecified whether esophagitis present - pantoprazole (Protonix) 40 MG EC tablet; Take 1 tablet by mouth Daily. Dispense: 30 tablet; Refill: 5 4. Coccygodynia Other orders - Fluzone High-Dose 65+yrs ([id number]) Ok short term pain medicine and will request outside records including imaging for what sounds likecompression fracture. She is high risk for this as she has osteoporosis Will write for sitting donut to relieva tailbone pain GERD not controlled with pepcid, will try protoni instead documented in this encounter Plan of Treatment Upcoming Encounters Date Type Department Care Team (Late st Contact Info) Description 02/26/2025 3:15 PM EST Office Visit [facility] [address] [place] [id number] Earl Dumont MD [address] [place] [address] documented as of this encounter Visit Diagnoses Diagnosis Age-related osteoporosis with current pathological fracture with routine healing, subsequent encounter- Primary Compression fracture of L2 vertebra with routine healing, subsequent encounter Gastroesophageal reflux disease, unspecified whether esophagitis present Coccygodynia Other disorder of coccyx documented in this encounter Additional Health Concerns Assessment Noted Time PHQ-2 Depression Total Score: 2 07/14/19 24 4:30 PM EDT documented as of this encounter Care Teams Frame Wirer Relationship Specialty Start Date End Date Earl Dumont MD [address] [place] [address] PCP - General Family Medicine 01/23/20 documented as of this encounter
--- OUTSIDE RECORDS SUMMARY | 2024-12-08 13:00 | XMS_ITS | Encounter Summary ---
[facility] Address [address] [place] [address] Care Team Providers Care Automatic Engraver Name Role Phone Earl Dumont MD Primary Care Provider [phone] Reason for Referral * Home Health (Routine) - Authorized Specialty Diagnoses / Procedures Referred By Contac t Referred To Contact Home Health Services Diagnoses Recurrent falls Chronic obstructive pulmonary disease with (acute) lower respiratory infection Coccygodynia Right leg pain Chronic heart failure with preserved ejection fraction Diastolic dysfunction with chronic heart failure Procedures [place] OFFICE/OUTPATIENT NEW MODERATE MDM 45 MINUTES Earl Dumont MD [address] [place] [address] Phone: tel: fax: [place] [address] [place] [address] Phone: tel: fax: Referral ID Status Reason Start Date Expiration Date Visits Requested Visits Authorized [id number] Authorized Specialty Services Required 03/09/2026 999 999 Reason for Visit * Reason Comments Back Injury F/u ER Closed lumbar vertebral fracture Encounter Details Date Type Department Care Team (Late st Contact Info) Description 12/08/2024 2:00 PM EDT Office Visit [facility] [address] [place] [address] Earl Dumont MD [address] [place] [address] Recurrent falls (Primary Dx); Chronic obstructive pulmonary [...] Description 02/26/2025 3:15 PM EST Office Visit [facility] [address] [facility] [place] [address] Earl Dumont MD [address] [place] [address] documented as of this encounter Visit Diagnoses [...] documented as of this encounter Care Teams Automatic Engraver Relationship Specialty Start Date End Date Earl Dumont MD [address] [place] [address] PCP - General Family Medicine 01/23/20 documented as of this encounter
[2025-01-08 16:21] LABS: Microscopic, Urine URINE MICROSCOPIC (MICROSCOPIC)
--- OUTSIDE RECORDS SUMMARY | 2025-01-08 16:59 | XMS_ITS | Encounter Summary ---
[facility] Organization [facility] Address [address] [place] [address] Care Team Providers Care Electrocardiograph Technician Name Role Phone Earl Dumont MD Primary Care Provider [phone] Reason for Visit * Reason Onset Date Comments Med Refill 07/17/2024 Encounter Details Date Type Department Care Team (Late st Contact Info) Description 07/17/2024 Refill [facility] [address] [place] [address] Earl Dumont MD [address] [place] [address] Generalized anxiety disorder Social History [...] Garcia Relationship: Self Best call back number: [phone] Requested Prescriptions: Requested Prescriptions Pending Prescriptions Disp Refills hydrOXYzine (ATARAX) 50 MG tablet 20 tablet 1 Sig: Take 0.5-1 tablets by mouth Every 6 (Six) Hours As Needed for Anxiety. Pharmacy where request should be sent: [id number] - [facility] [place] - [address] [address] [address] & [facility] [phone] [facility] [phone] FX Last office visit with prescribing clinician: [...] Description 02/26/2025 3:15 PM EST Office Visit [facility] [address] [facility] [place] [id number] Earl Dumont MD [address] [facility] [place] [address] documented as of this encounter Visit Diagnoses Diagnosis Generalized anxiety disorder documented in this encounter Additional Health Concerns Assessment Noted Time PHQ-2 Depression Total Score: 2 07/14/19 24 4:30 PM EDT documented as of this encounter Care Teams Electrocardiograph Technician Relationship Specialty Start Date End Date Earl Dumont MD [address] [place] [address] PCP - General Family Medicine 01/23/20 documented as of this encounter
--- OUTSIDE RECORDS SUMMARY | 2025-01-08 16:59 | XMS_ITS | Encounter Summary ---
[facility] Address [address] [place] [address] Care Team Providers Care Web Press Operator Assistant Name Role Phone Earl Dumont MD Primary Care Provider [phone] Reason for Visit * Reason Comments Med Refill Encounter Details Date Type Department Care Team (Late st Contact Info) Description 05/08/2022 Refill [facility] [address] [facility] [place] [address] Earl Dumont MD [address] [facility] [place] [address] Generalized anxiety disorder Social History [...] Description 02/26/2025 3:15 PM EST Office Visit [facility] [address] [place] [address] Earl Dumont MD [address] [place] [address] documented as of this encounter Visit Diagnoses Diagnosis Generalized anxiety disorder documented in this encounter Care Teams Web Press Operator Assistant Relationship Specialty Start Date End Date Earl Dmuont MD [address] [place] [address] PCP - General Family Medicine 01/23/20 documented as of this encounter
--- OUTSIDE RECORDS SUMMARY | 2025-01-08 16:59 | XMS_ITS | Clinical Summary ---
Author Organization [facility] , [facility] Address [address] [place] [address] Phone Care Team Providers Care Bobtailer Name Role Phone Souleymane Hopson MD Unavailable [phone] Earl Samuel Unavailable Unavailable Reason for Visit and Chief Complaint [Patient Encounter] Problems Includes: Problems addressed during this encounter and other active Problems All Visits Onset Date Resolved Date Provider Condition S tatus Joint Pain in Both Knees 09/12/2021 Tonja Oseguera PA-C Active Last Documented On 2 2:34PM ; [facility], [facility] Plan of Treatment No Plan of Treatment Recorded Assessments Includes: Assessments from this encounter No Assessments Recorded Medical Equipment - Implanted Devices Includes: Current Devices No Medical Equipment Recorded Medications Includes: Medications discussed during this encounter and other current Medications Current Medications (continue as prescribed) traMADol HCl 50 MG Oral Tablet 08/27/2021 Provider: Nilesh Hare MD Diagnosis: Last Documented On 2 2:36PM By [facility] oxyCODONE HCl 5 MG Oral Tablet 08/27/2021 Provider: Nilesh Hare MD Diagnosis: Last Documented On 2 2:36PM By [facility] Meloxicam 15 MG Oral Tablet 08/27/2021 Provider: Nilesh Hare MD Diagnosis: Last Documented On 2 2:36PM By Rebeca Loza [facility], [facility] Trelegy Ellipta 200-62.5-25 MCG/INH Inhalation Aerosol Powder Breath Activated 08/13/2021 Provider: Diagnosis: Last Documented On 2 2:36PM By Rebeca FRANCO, [facility] Atenolol 50 MG Oral Tablet 01/07/2021 Provider: Diagnosis: Last Documented On 1 3:28PM By [facility], [facility] Medications Administered Includes: Administered Medications from this encounter No Administered Medications Recorded Results Includes: Results discussed during this encounter No Results Recorded For Specified Dates History of Present Illness Includes: History of Present Illness from this encounter No History of Present Illness Recorded Social History No Social History Recorded - Smoking Status Unknown Medical History Includes: Medical History addressed during this encounter No Medical History Recorded Family History Includes: Family History addressed during this encounter No Family History Recorded Review of Systems Includes: Review of Systems from this encounter No Review of Systems Recorded Mental Status Includes: Mental Status from this encounter No Mental Status Recorded Functional Status Includes: Functional Status from this encounter No Functional Status Recorded Physical Exam Includes: Physical Exam from this encounter No Physical Exam Recorded Allergies Includes: Active Allergies No Known Allergies Encounters Encounter Provider Location Date Check-In Time Check-Out Time Diagnosis [Patient Encounter] Nilesh Hare MD 09/16/2022 1:15PM 11:59PM Insurance Includes: Active Insurance Policies Plan Name Member ID Group # Subscriber Relationship Effect manuel Dates 1 - [employer] ([place]) Medicare [id number] Patito Garcia Self 04/08/2020 - Unknown Clinical Notes Includes: Clinical Notes from this encounter No Clinical Notes Recorded
--- OUTSIDE RECORDS SUMMARY | 2025-01-08 16:59 | XMS_ITS | Clinical Summary ---
Author Organization [facility] Address [address] [place] [address] Phone Care Team Providers Care Social Worker Masters Name Role Phone Souleymane Hopson MD Unavailable [phone] Earl Samuel Unavailable Unavailable Reason for Visit and Chief Complaint [Patient Encounter] Problems Includes: Problems addressed during this encounter and other active Problems All Visits Onset Date Resolved Date Provider Condition S tatus Joint Pain in Both Knees 09/12/2021 Tonja Oseguera PA-C Active Last Documented On 2 2:34PM ; [facility], [facility] Plan of Treatment Pending Tests Order Diagnosis Results Due Ordering P rovider Therapy - Physical Therapy Hip 07/30/21 Nilesh Hare MD Last Documented On 2 4:25PM ; [facility], [facility] Assessments Includes: Assessments from this encounter No Assessments Recorded Medical Equipment - Implanted Devices Includes: Current Devices No Medical Equipment Recorded Medications Includes: Medications discussed during this encounter and other current Medications Current Medications (continue as prescribed) traMADol HCl 50 MG Oral Tablet 08/27/2021 Provider: Nilesh Hare MD Diagnosis: Last Documented On 2 2:36PM By Rebeca Loza [facility] oxyCODONE HCl 5 MG Oral Tablet 08/27/2021 Provider: Nilesh Hare MD Diagnosis: Last Documented On 2 2:36PM By Rebeca URIOSTEGUI [facility], [facility] Meloxicam 15 MG Oral Tablet 08/27/2021 Provider: Nilesh Hare MD Diagnosis: Last Documented On 2 2:36PM By Rebeca [facility] Treleaaron Ellipta 200-62.5-25 MCG/INH Inhalation Aerosol Powder Breath Activated 08/13/2021 Provider: Diagnosis: Last Documented On 2 2:36PM By Rebeca Zepeda ; [facility], [facility] Atenolol 50 MG Oral Tablet 01/07/2021 Provider: Diagnosis: Last Documented On 1 3:28PM By Alisha Loza [facility] Medications Administered Includes: Administered Medications from [...] Time Diagnosis [Patient Encounter] Nilesh Hare MD 08/28/2021 5:36PM 11:59PM Insurance Includes: Active Insurance Policies Plan Name Member ID Group # Subscriber Relationship Effect manuel Dates 1 - BCBS ([place]) Medicare [id number] Patito Tigre Hope Self 04/08/2020 - Unknown Clinical Notes Includes: Clinical Notes from this encounter No Clinical Notes Recorded
--- OUTSIDE RECORDS SUMMARY | 2025-01-08 16:59 | XMS_ITS | Encounter Summary ---
[facility] Organization [facility] Address [address] [place] [address] Care Team Providers Care Hydraulic Plumber Helper Name Role Phone Earl Dumont MD Primary Care Provider [phone] Reason for Visit * Reason Comments Med Refill Encounter Details Date Type Department Care Team (Late st Contact Info) Description 04/10/2022 Refill [facility] [address] [place] [address] Earl Dumont MD [address] [place] [address] Essential hypertension Social History Tobacco [...] in a usp (including now)? No 10/01/2021 Comments No Sex [...] Description 02/26/2025 3:15 PM EST Office Visit [facility] [address] [address] Earl Dumont MD [address] [address] documented as of this encounter Visit Diagnoses Diagnosis Essential hypertension Unspecified essential hypertension documented in this encounter Additional Health Concerns Assessment Noted Time PHQ-2 Depression Total Score: 1 04/26/19 22 2:42 PM EDT documented as of this encounter Care Teams Hydraulic Plumber Helper Relationship Specialty Start Date End Date Earl Dumont MD [address] [address] PCP - General Family Medicine 01/23/20 documented as of this encounter
--- OUTSIDE RECORDS SUMMARY | 2025-01-08 16:59 | XMS_ITS ---
Author Organization [facility] Address [address] [address] Phone Care Team Providers Care Industrial Controller Name Role Phone Mark Anthony ZAPATA, Souleymane Luong Unavailable [phone] Earl Samuel Unavailable Unavailable Reason for Referral Date Encounter Description Provider Reason for Referral 10/10/21 Post Op Tonja DIGGS-Jose Referral To Physician 09/12/21 Post Op Tonja Oseguera PA-C Referral To Physician 04/07/21 COTE Injection Rm Quintanilla PA-C Referral To Physician - See PCP for BP 03/31/21 Follow Up Rm Quintanilla PA-C Referral To Physician - See PCP for BP 03/24/21 COTE Injection Rm Quintanilla PA-C Referral To Physician - See PCP for BP 01/07/21 Follow Up Rm Quintanilla PA-C Referral To Physician - See PCP for BP 11/25/20 Follow Up Souleymane Hopson MD Referral To Physician - See PCP for BP 11/13/19 NEW PROBLEM/EST PT Souleymane Hopson MD Refer ral To Physician Problems Includes: Active, inactive, and resolved Problems All Visits Onset Date Resolved Date Provider Condition S tatus Joint Pain in Both Knees 09/12/2021 Tonja DIGGS-Jose Active Last Documented On 2 2:34PM ; [facility] Joint Pain Left Knee 07/29/2021 Tonja DIGGS-C Inactive Last Documented On 2 2:34PM ; [facility] Right Ankle Joint Pain 10/21/2020 Tonja perales PA-C Inactive Last Documented On 2 2:34PM ; [facility] Joint Pain Hip Left 11/13/2019 Tonja Luong-C Inactive Last Documented On 2 2:34PM ; [facility] Lower Back Pain 11/13/2019 Tonja Oseguera PA-C Inactive Last Documented On 2 2:34PM ; [facility] Plan of Treatment Instructions to patient Lose weight Last Documented On 3 3:28PM ; [facility] Lose weight Last Documented On 2 3:52PM ; [facility] Lose weight Last Documented On 2 2:23PM ; [facility] Lose weight Last Documented On 2 4:32PM ; [facility] Lose weight Last Documented On 2 2:13PM ; [facility] Lose weight Last Documented On 2 2:26PM ; [facility] Lose weight Last Documented On 2 2:24PM ; [facility] Lose weight Last Documented On 2 3:14PM ; [facility] Lose weight Last Documented On 1 1:49PM ; [facility] Lose weight Last Documented On 1 1:31PM ; [facility] Lose weight Last Documented On 1 1:10PM ; [facility] Lose weight Last Documented On 1 1:06PM ; [facility] Lose weight Last Documented On 1 1:02PM ; [facility] Lose weight Last Documented On 0 3:08PM ; [facility] Instructions for patient to see pcp for bp and wt Last Documented On 9 3:07PM ; [facility] Lose weight Last Documented On 9 3:07PM ; [facility] Instructions for patient to see pcp for bp and wt Last Documented On 9 1:04PM ; [facility] Lose weight Last Documented On 9 1:04PM ; [facility] Assessments Includes: Assessments for all patient encounters Findings Encounter Date Overweight Follow Up with Nilesh Alberts MD 11/10/2022 Last Documented On 4 4:56PM ; [facility] Instructions Includes: Instructions for all patient encounters Instructions to patient Lose weight Last Documented On 3 3:28PM ; [facility] Lose weight Last Documented On 2 3:52PM ; [facility] Lose weight Last Documented On 2 2:23PM ; [facility] Lose weight Last Documented On 2 4:32PM ; [facility] Lose weight Last Documented On 2 2:13PM ; [facility] Lose weight Last Documented On 2 2:26PM ; [facility] Lose weight Last Documented On 2 2:24PM ; [facility] Lose weight Last Documented On 2 3:14PM ; [facility] Lose weight Last Documented On 1 1:49PM ; [facility] Lose weight Last Documented On 1 1:31PM ; [facility] Lose weight Last Documented On 1 1:10PM ; [facility] Lose weight Last Documented On 1 1:06PM ; [facility] Lose weight Last Documented On 1 1:02PM ; [facility] Lose weight Last Documented On 0 3:08PM ; [facility] Instructions for patient to see pcp for bp and wt Last Documented On 9 3:07PM ; [facility] Lose weight Last Documented On 9 3:07PM ; [facility] Instructions for patient to see pcp for bp and wt Last Documented On 9 1:04PM ; [facility] Lose weight Last Documented On 9 1:04PM ; [facility] Medical Equipment - Implanted Devices Includes: Current and historical Devices No Medical Equipment Recorded Medications Includes: Current and historical Medications Current Medications (continue as prescribed) traMADol HCl 50 MG Oral Tablet 08/27/2021 Provider: Nilesh Hare MD Diagnosis: Last Documented On 2 2:36PM By Rebeca Zepeda ; [facility] oxyCODONE HCl 5 MG Oral Tablet 08/27/2021 Provider: Nilesh Hare MD Diagnosis: Last Documented On 2 2:36PM By Rebeca Zepeda ; [facility] Meloxicam 15 MG Oral Tablet 08/27/2021 Provider: Nilesh Hare MD Diagnosis: Last Documented On 2 2:36PM By Rebeca Zepeda ; [facility] Trelegy Ellipta 200-62.5-25 MCG/INH Inhalation Aerosol Powder Breath Activated 08/13/2021 Provider: Diagnosis: Last Documented On 2 2:36PM By Rebeca Zepeda ; [facility] Atenolol 50 MG Oral Tablet 01/07/2021 Provider: Diagnosis: Last Documented On 1 3:28PM By Alisha Garcia ; [facility] Past Medications on file Aspirin EC 81 MG Oral Tablet Delayed Release 08/27/2021 - 10/08/2021 Provider: Nilesh Hare MD Diagnosis: Take 1 tablet by mouth every 12 hours for 42 days post op Last Documented On 2 1:13PM By Nilesh Hare ; [facility] Cefadroxil 500 MG Oral Capsule 08/27/2021 - 09/03/2021 Provider: Nilesh Ross MD Diagnosis: Take 1 capsule by mouth every 12 hours for 7 day s Last Documented On 2 1:13PM By Nilesh Hare ; [facility] Acetaminophen 500 MG Oral Tablet 08/27/2021 - 09/10/2021 Provider: Nilesh Ross MD Diagnosis: Take 2 tablets by mouth every 8 hours as needed Last Documented On 2 1:13PM By Nilesh Hare ; [facility] Meloxicam 15 MG Oral Tablet 08/27/2021 - 09/10/2021 Pr ovider: Nilesh Hare MD Diagnosis: once a day for 14 days Last Documented On 2 1:13PM By Nilesh Hare ; [facility] traMADol HCl 50 MG Oral Tablet 08/27/2021 - 09/04/2021 Provider: Nilesh Ross MD Diagnosis: 2 tablets every 6 hours for break through pain Last Documented On 2 1:13PM By Nilesh Hare ; [facility] oxyCODONE HCl 5 MG Oral Tablet 08/27/2021 - 09/06/2021 Provider: Nilesh Ross MD Diagnosis: Take 1 tablet by mouth every 4-6hrs for moderate pain Last Documented On 2 1:13PM By Nilesh Hare ; [facility] Colace 100 MG Oral Capsule 08/27/2021 - 11/25/2021 Pro vider: Nilesh Hare MD Diagnosis: Take 1-2 capsules daily as needed Last Documented On 2 1:13PM By Nilesh Hare ; [facility] Ondansetron HCl 4 MG Oral Tablet 08/27/2021 - 09/03/2021 Provider: Nilesh Ross MD Diagnosis: 1 po q 6h prn nausea Last Documented On 2 1:13PM By Nilesh Hare ; [facility] Vitamin D3 50 MCG (1999 [place]) Oral Tablet 08/27/2021 - 10/26/2021 Provider: Nilesh Ross MD Diagnosis: Take 1 tablet by mouth daily Last Documented On 2 1:13PM By Nilesh Hare ; [facility] Mupirocin 2% External Ointment 07/31/2021 - 08/05/2021 Provider: Nilesh Ross MD Diagnosis: twice a day APPLY SMALL AMOU NT TWICE DAILY TO THE INSIDE OF EACH NOSTRIL STARTING AFTER PRE-ADMISSION TESTING APPOINTMENT Last Documented On 2 2:34PM By Gloria Chawla ; [facility] Montelukast Sodium 10 MG Oral Tablet 11/13/2019 - 12/11 Provider: Diagnosis: Last Documented On 1 3:28PM By Alisha Garcia ; [facility] Pravastatin Sodium 20 MG Oral Tablet 11/13/2019 - 12/11 Provider: Diagnosis: Last Documented On 1 3:28PM By Alisha Garcia ; [facility] Omeprazole 40 MG Oral Capsule Delayed Release 11/13/19 - 01/07/2021 Provider: Diagnosis: Last Documented On 1 3:28PM By Alisha Garcia ; [facility] Losartan Potassium-HCTZ 100-12.5 MG Oral Tablet 11/13/2019 - 01/07/2021 Provider: Diagnosis: Last Documented On 1 3:28PM By Alisha Garcia ; [facility] Levothyroxine Sodium 125 MCG Oral Tablet 11/13/2019 - 01/07/2021 Provider: Diagnosis: Last Documented On 1 3:28PM By Alisha Garcia ; [facility] Furosemide 20 MG Oral Tablet 11/13/2019 - 01/07/2021 P rovider: Diagnosis: Last Documented On 1 3:28PM By Alisha Garcia ; [facility] Fluticasone Furoate 100 MCG/ ACT Inhalation Aerosol Powder Breath Activated 11/13/2019 - 01/07/2021 Provider: Diagnosis: Last Documented On 1 3:28PM By Alisha Garcia ; [facility] DULoxetine HCl 60 MG Oral Ca psule Delayed Release Particles 11/13/2019 - 01/07/2021 Provider: Diagnosis: Last Documented On 1 3:28PM By Alisha Garcia ; [facility] Vitamin B-12 500 MCG Oral Tablet 11/13/2019 - 12/11 Provider: Diagnosis: Last Documented On 1 3:28PM By Alisha Garcia ; [facility] Atenolol 50 MG Oral Tablet 11/13/2019 - 01/07/2021 Pro vider: Diagnosis: Last Documented On 1 3:28PM By Alisha Garcia ; [facility] Aspirin 81 MG Oral Tablet Delayed Release 11/13/2019 - 01/07/2021 Provider: Diagnosis: Last Documented On 1 3:28PM By Alisha Garcia ; [facility] Viteyes AREDS Formula Oral Capsule 11/13/2019 - 2020 Provider: Diagnosis: Last Documented On 1 3:27PM By Alisha Garcia ; [facility] amLODIPine Besy-Benazepril H Cl 5-10 MG Oral Capsule 11/13/2019 - 01/07/2021 Provider: Diagnosis: Last Documented On 1 3:28PM By Alisha Garcia ; [facility] Alendronate Sodium 70 MG Oral Tablet 11/13/2019 - 12/11 Provider: Diagnosis: Last Documented On 1 3:28PM By Alisha Garcia ; [facility] traZODone HCl 100 MG Oral Tablet 11/13/2019 - 01/08/20 21 Provider: Diagnosis: Last Documented On 1 3:27PM By Alisha Garcia ; [facility] HM Vitamin B12 500MCG Oral Tablet 06/22/2018 - 020 Provider: Diagnosis: Last Documented On 0 3:00PM By Mallika Sahni ; [facility] ICaps Areds 2 Oral Capsule 06/22/2018 - 11/13/2019 Pro vider: Diagnosis: Last Documented On 0 3:00PM By Mallika Sahni ; [facility] Furosemide 20MG Oral Tablet 06/22/2018 - 11/13/2019 Pr ovider: Diagnosis: Last Documented On 0 3:00PM By Mallika Sahni ; [facility] Pravastatin Sodium 20MG Oral Tablet 06/22/2018 - 11/12 Provider: Diagnosis: Last Documented On 0 3:01PM By Mallika Sahni ; [facility] Potassium Chloride ER 10MEQ Oral Capsule Extended Release 06/22/2018 - 11/13/2019 Provider: Diagnosis: Last Documented On 0 3:01PM By Mallika Sahni ; [facility] Losartan Potassium-HCTZ 100-12.5MG Oral Tablet 0 06/22/2018 - 11/13/2019 Provider: Diagnosis: Last Documented On 0 3:01PM By Mallika Sahni ; [facility] amLODIPine Besy-Benazepril H Cl 5-10MG Oral Capsule 06/22/2018 - 11/13/2019 Provider: Diagnosis: Last Documented On 0 3:00PM By Mallika Sahni ; [facility] Levothyroxine Sodium 125MCG Oral Tablet 06/22/2018 - 1 Provider: Diagnosis: Last Documented On 0 3:00PM By Mallika Sahni ; [facility] Montelukast Sodium 10MG Oral Tablet 06/22/2018 - 11/12 Provider: Diagnosis: Last Documented On 0 3:01PM By Mallika Sahni ; [facility] Atenolol 50MG Oral Tablet 06/22/2018 - 11/13/2019 Prov ider: Diagnosis: Last Documented On 0 2:58PM By Mallika Sahni ; [facility] Omeprazole 40MG Oral Capsule Delayed Release 9 - 11/13/2019 Provider: Diagnosis: Last Documented On 0 3:01PM By Mallika Sahni ; [facility] DULoxetine HCl 60MG Oral Cap linda Delayed Release Particles 06/22/2018 - 11/13/2019 Provider: Diagnosis: Last Documented On 0 2:59PM By Mallika Sahni ; [facility] Alendronate Sodium 70MG Oral Tablet 06/22/2018 - 11/12 Provider: Diagnosis: Last Documented On 0 2:57PM By Mallika Sahni ; [facility] Aspirin 81MG Oral Tablet Delayed Release 06/22/2018 - 11/13/2019 Provider: Diagnosis: Last Documented On 0 2:59PM By Mallika Sahni ; [facility] Medications Administered Includes: Administered Medications in patient's chart No Administered Medications Recorded Results Includes: Results from 01/09/2024 through 01/08/2025 No Results Recorded For Specified Dates History of Present Illness History of Present Illness not supported for this document type No History of Present Illness Recorded Social History Description Last Updated Tobacco non-user 10/10/2021 Last Documented On 2 4:39PM ; [facility] Not a smoker 09/12/2021 Last Documented On 2 4:47PM ; [facility] No caffeine use 01/07/2021 Last Documented On 1 9:32AM ; [facility] No recent change in diet 01/07/2021 Last Documented On 1 9:32AM ; [facility] Not a current smoker. 01/07/2021 Last Documented On 1 9:32AM ; [facility] Exercising regularly 07/10/2020 Last Documented On 1 3:26PM ; [facility] Non-smoker 07/10/2020 Last Documented On 1 3:26PM ; [facility] No recent change in diet 07/07/2018 Last Documented On 9 4:12PM ; [facility] No tobacco use 07/07/2018 Last Documented On 9 4:12PM ; [facility] Not a current smoker 07/07/2018 Last Documented On 9 4:12PM ; [facility] Not using alcohol 07/07/2018 Last Documented On 9 4:12PM ; [facility] Not using drugs 07/07/2018 Last Documented On 9 4:12PM ; [facility] Smoking status : Never smoker 07/07/2018 Last Documented On 9 4:12PM ; [facility] Medical History Includes: Medical History in patient's chart Description Last Updated Past surgical history non-contributory 1 03/09/2020 Last Documented On 1 9:32AM ; [facility] History of arthritis 01/07/2021 Last Documented On 1 9:32AM ; [facility] History of Hypertension 01/07/2021 Last Documented On 1 9:32AM ; [facility] History of Sleep Apnea 01/07/2021 Last Documented On 1 9:32AM ; [facility] History of Thyroid Disease 01/07/2021 Last Documented On 1 9:32AM ; [facility] Past surgical history non-contributory 0 07/10/2020 Last Documented On 1 3:26PM ; [facility] A recent immunization for flu 10/03/2019 07/10/2020 Last Documented On 1 3:26PM ; [facility] A recent immunization for pneumococcal p neumonia 01/01/2019 07/10/2020 Last Documented On 1 3:26PM ; [facility] Arthritis 07/10/2020 Last Documented On 1 3:26PM ; [facility] History of depression 07/10/2020 Last Documented On 1 3:26PM ; [facility] History of osteoporosis 07/10/2020 Last Documented On 1 3:26PM ; [facility] Hypertension 07/10/2020 Last Documented On 1 3:26PM ; [facility] Thyroid Disease 07/10/2020 Last Documented On 1 3:26PM ; [facility] Family History Includes: Family History in patient's chart Description Last Updated Family history of osteoporosis 1 Last Documented On 1 9:32AM ; [facility] Stroke / Seizures 01/07/2021 Last Documented On 1 9:32AM ; [facility] Diabetes mellitus 07/10/2020 Last Documented On 1 3:26PM ; [facility] Family history of hypertension 1 Last Documented On 1 3:26PM ; [facility] Family history of thromboembolic disease 07/10/2020 Last Documented On 1 3:26PM ; [facility] No significant family history 07/07/2018 Last Documented On 9 4:12PM ; [facility] Review of Systems Review of Systems not supported for this document type No Review of Systems Recorded Mental Status Description No anxiety Functional Status No Functional Status Recorded Physical Exam Physical Exam not supported for this document type No Physical Exam Recorded Immunizations Includes: Immunizations in patient's chart Vaccine Dose # Date Site Reaction(s) Status Source Influenza 1 10/03/2019 Complete (Reported) Patient Last Documented On 0 3:09PM ; [facility] PCV (Pneumovax 23) 1 01/02/2019 Complete ( Reported) Patient Last Documented On 0 3:09PM ; [facility] Allergies Includes: Active, inactive, and resolved Allergies No Known Allergies Insurance Includes: Active Insurance Policies Plan Name Member ID Group # Subscriber Relationship Effect manuel Dates 1 - [employer] ([place]) Medicare [id number] Patito Garcia Self 04/08/2020 - Unknown Clinical Notes Includes: Signed Clinical Notes starting from 01/22/2022 No Clinical Notes Recorded
--- OUTSIDE RECORDS SUMMARY | 2025-01-08 16:59 | XMS_ITS | Clinical Summary ---
Author Organization [facility] , [facility] Address [address] [address] Phone Care Team Providers Care Risk Control Analyst Name Role Phone Souleymane Hopson MD Unavailable [phone] Earl Samuel Unavailable Unavailable Reason for Referral Date Encounter Description Provider Reason for Referral 09/12/21 Post Op Tonja Oseguera PA-C Referral To Physician Reason for Visit and Chief Complaint The Chief Complaint is: L knee pain Problems Includes: Problems addressed during this encounter and other active Problems All Visits Onset Date Resolved Date Provider Condition S tatus Joint Pain in Both Knees 09/12/2021 Tonja Oseguera PA-C Active Last Documented On 2 2:34PM ; [facility] Joint Pain Left Knee 07/29/2021 Tonja Oseguera PA-C Inactive Last Documented On 2 2:34PM ; [facility] Right Ankle Joint Pain 10/21/2020 Tonja Sulliva n PA-C Inactive Last Documented On 2 2:34PM ; [facility] Joint Pain Hip Left 11/13/2019 Tonja Oseguera P A-C Inactive Last Documented On 2 2:34PM ; [facility] Lower Back Pain 11/13/2019 Tonja Oseguera PA-C Inactive Last Documented On 2 2:34PM ; [facility] Plan of Treatment Fall Risk Assessment: This patient has been identified as a fall risk. Balance/gait along with postural blood pressure, vision and home fall hazards have been assessed. Medications have been reviewed, and recommendations made with regard to contributing factors for future falls. Plan of care: Consideration of vitamin D supplementation along with balance and strength training with consideration for formal physical therapy has been discussed with the patient. - Last Documented On 09/12/2021 4:47PM ; [facility], [facility] She will return to [facility] and continue physical and occupational therapy with focus on strengthening and range of motion. The next follow-up appointment is already scheduled for 10/10/21 and she will call the office if she has any questions or concerns in the meantime. - Last Documented On 09/12/2021 4:47PM ; [facility], [facility] Instructions to patient Lose weight Last Documented On 2 2:23PM ; [facility], [facility] Assessments Includes: Assessments from this encounter Findings 76-year-old female presents 2 weeks status post left total knee arthroplasty that took place on 08/28/21. She continues to do well during the post-operative period of time. Incision site is healing well and without signs of infection. Incisional bandage was removed today in the office with Steri-Strips placed across the incision site. She denies fever and chills. She has been participating in physical therapy at [facility]. She is in a wheelchair for today's office visit. - Last Documented On 09/12/2021 4:47PM ; [facility], [facility] Instructions Includes: Instructions from this encounter Instructions to patient Lose weight Last Documented On 2 2:23PM ; [facility], [facility] Medical Equipment - Implanted Devices Includes: Current Devices No Medical Equipment Recorded Medications Includes: Medications discussed during this encounter and other current Medications Current Medications (continue as prescribed) traMADol HCl 50 MG Oral Tablet 08/27/2021 Provider: Nilesh Hare MD Diagnosis: Last Documented On 2 2:36PM By Rebeca FRANCO, [facility] oxyCODONE HCl 5 MG Oral Tablet 08/27/2021 Provider: Nilesh Hare MD Diagnosis: Last Documented On 2 2:36PM By Rebeca FRANCO, [facility] Meloxicam 15 MG Oral Tablet 08/27/2021 Provider: Nilesh Hare MD Diagnosis: Last Documented On 2 2:36PM By Rebeca CHARLESS, [facility] Trelegy Ellipta 200-62.5-25 MCG/INH Inhalation Aerosol Powder Breath Activated 08/13/2021 Provider: Diagnosis: Last Documented On 2 2:36PM By Rebeca Zepeda ; [facility], [facility] Atenolol 50 MG Oral Tablet 01/07/2021 Provider: Diagnosis: Last Documented On 1 3:28PM By Alisha Garcia ; [facility], [facility] Past Medications on file Aspirin EC 81 MG Oral Tablet Delayed Release 08/27/2021 - 10/08/2021 Provider: Nilesh Hare MD Diagnosis: Take 1 tablet by mouth every 12 hours for 42 days post op Last Documented On 2 1:13PM By Nilesh Hare ; [facility] Cefadroxil 500 MG Oral Capsule 08/27/2021 - 09/03/2021 Provider: Nilesh Ross MD Diagnosis: Take 1 capsule by mouth every 12 hours for 7 day s Last Documented On 2 1:13PM By Nilesh Hare ; [facility] Acetaminophen 500 MG Oral Tablet 08/27/2021 - 09/10/2021 Provider: Nilesh Ross MD Diagnosis: Take 2 tablets by mouth every 8 hours as needed Last Documented On 2 1:13PM By Nilesh Hare ; [facility] Meloxicam 15 MG Oral Tablet 08/27/2021 - 09/10/2021 Pr ovider: Nilesh Hare MD Diagnosis: once a day for 14 days Last Documented On 2 1:13PM By Nilesh Hare ; [facility] traMADol HCl 50 MG Oral Tablet 08/27/2021 - 09/04/2021 Provider: Nilesh Ross MD Diagnosis: 2 tablets every 6 hours for break through pain Last Documented On 2 1:13PM By Nilesh Hare ; [facility], [facility] oxyCODONE HCl 5 MG Oral Tablet 08/27/2021 - 09/06/2021 Provider: Nilesh Ross MD Diagnosis: Take 1 tablet by mouth every 4-6hrs for moderate pain Last Documented On 2 1:13PM By Nilesh Hare ; [facility], [facility] Colace 100 MG Oral Capsule 08/27/2021 - 11/25/2021 Pro vider: Nilesh Hare MD Diagnosis: Take 1-2 capsules daily as needed Last Documented On 2 1:13PM By Nilesh Hare ; [facility], [facility] Ondansetron HCl 4 MG Oral Tablet 08/27/2021 - 09/03/2021 Provider: Nilesh Ross MD Diagnosis: 1 po q 6h prn nausea Last Documented On 2 1:13PM By Nilesh Hare ; [facility], [facility] Vitamin D3 50 MCG (1999) Oral Tablet 08/27/2021 - 10/26/2021 Provider: Nilesh Ross MD Diagnosis: Take 1 tablet by mouth daily Last Documented On 2 1:13PM By Nilesh Hare ; [facility] Mupirocin 2% External Ointment 07/31/2021 - 08/05/2021 Provider: Nilesh Ross MD Diagnosis: twice a day APPLY SMALL AMOU NT TWICE DAILY TO THE INSIDE OF EACH NOSTRIL STARTING AFTER PRE-ADMISSION TESTING APPOINTMENT Last Documented On 2 2:34PM By Gloria Chawla ; [facility] Medications Administered Includes: Administered Medications from this encounter No Administered Medications Recorded Vital Signs Includes: Vital Signs from this encounter Vital Name 09/12/2021 02:31P Blood Pressure Sitting (mmHg) 115/77 Pulse Rate-Sitting (bpm) 65 Height (in) 54 Note: mira Last Documented: On 09/12/2021 2:33PM ; [facility], [facility] Results Includes: Results discussed during this encounter No Results Recorded For Specified Dates History of Present Illness Includes: History of Present Illness from this encounter DURAN Garcia is a 76 year old female. - Allergy list reviewed - Problem list reviewed - Medication list reviewed 76-year-old female presents for first postoperative follow-up appointment status post left total knee arthroplasty that took place on 08/28/21. She continues to do well during the post-operative period of time. Incision site is healing well and without signs of infection. She denies fever and chills. She has been participating in physical therapy at [facility]. She is in a wheelchair for today's office visit. Social History Description Last Updated Not a smoker 09/12/2021 Last Documented On 2 4:47PM ; [facility], [facility] No caffeine use 01/07/2021 Last Documented On 2 2:23PM ; [facility], [facility] No recent change in diet 01/07/2021 Last Documented On 2 2:23PM ; [facility], [facility] Not a current smoker. 01/07/2021 Last Documented On 2 2:23PM ; [facility], [facility] Exercising regularly 07/10/2020 Last Documented On 2 2:23PM ; [facility], [facility] Non-smoker 07/10/2020 Last Documented On 2 2:23PM ; [facility], [facility] No recent change in diet 07/07/2018 Last Documented On 2 2:23PM ; [facility], [facility] No tobacco use 07/07/2018 Last Documented On 2 2:23PM ; [facility], [facility] Not a current smoker 07/07/2018 Last Documented On 2 2:23PM ; [facility], [facility] Not using alcohol 07/07/2018 Last Documented On 2 2:23PM ; [facility], [facility] Not using drugs 07/07/2018 Last Documented On 2 2:23PM ; [facility], [facility] Smoking status : Never smoker 07/07/2018 Last Documented On 2 2:23PM ; [facility], [facility] Procedures and Surgical History Includes: Procedures from this encounter Procedures Code Diagnosis Performing Provider Service L ocation Service Date use of tobacco assessment performed 1000F Last Documented On 2 2:23PM ; [facility], [facility] patient screened for future fall risk 3288F Last Documented On 2 2:23PM ; [facility], [facility] follow-up visit not in one month with P for elevated BP Last Documented On 2 2:33PM ; [facility], [facility] no referral to physician Last Documented On 2 2:33PM ; [facility] an X-ray was performed 78880 Last Documented On 2 2:32PM ; [facility], [facility] Medical History Includes: Medical History addressed during this encounter Description Last Updated Past surgical history non-contributory 1 03/09/2020 Last Documented On 2 2:23PM ; [facility], [facility] History of arthritis 01/07/2021 Last Documented On 2 2:23PM ; [facility] History of Hypertension 01/07/2021 Last Documented On 2 2:23PM ; [facility], [facility] History of Sleep Apnea 01/07/2021 Last Documented On 2 2:23PM ; [facility], [facility] History of Thyroid Disease 01/07/2021 Last Documented On 2 2:23PM ; [facility], [facility] Past surgical history non-contributory 0 07/10/2020 Last Documented On 2 2:23PM ; [facility] A recent immunization for flu 10/03/2019 07/10/2020 Last Documented On 2 2:23PM ; [facility] A recent immunization for pneumococcal p neumonia 01/01/2019 07/10/2020 Last Documented On 2 2:23PM ; [facility] Arthritis 07/10/2020 Last Documented On 2 2:23PM ; [facility] History of depression 07/10/2020 Last Documented On 2 2:23PM ; [facility], [facility] History of osteoporosis 07/10/2020 Last Documented On 2 2:23PM ; [facility], [facility] Hypertension 07/10/2020 Last Documented On 2 2:23PM ; [facility] Thyroid Disease 07/10/2020 Last Documented On 2 2:23PM ; [facility], [facility] Family History Includes: Family History addressed during this encounter Description Last Updated Family history of osteoporosis 1 Last Documented On 2 2:23PM ; [facility], [facility] Stroke / Seizures 01/07/2021 Last Documented On 2 2:23PM ; [facility], [facility] Diabetes mellitus 07/10/2020 Last Documented On 2 2:23PM ; [facility] Family history of hypertension 1 Last Documented On 2 2:23PM ; [facility] Family history of thromboembolic disease 07/10/2020 Last Documented On 2 2:23PM ; [facility] No significant family history 07/07/2018 Last Documented On 2 2:23PM ; [facility] Review of Systems Includes: Review of Systems from this encounter No Review of Systems Recorded Mental Status Includes: Mental Status from this encounter No Mental Status Recorded Functional Status Includes: Functional Status from this encounter No Functional Status Recorded Physical Exam Includes: Physical Exam from this encounter Allergies Includes: Active Allergies No Known Allergies Encounters Encounter Provider Location Date Check-In Time Check- Out Time Diagnosis Post Op Tonja Oseguera [facility] 2 2:18PM 3:10PM Insurance Includes: Active Insurance Policies Plan Name Member ID Group # Subscriber Relationship Effect manuel Dates 1 - [place] ([place]) Medicare [id number] Patito Tigre Hope Self 04/08/2020 - Unknown Clinical Notes Includes: Clinical Notes from this encounter No Clinical Notes Recorded
--- OUTSIDE RECORDS SUMMARY | 2025-01-08 16:59 | XMS_ITS | Encounter Summary ---
[facility] Address [address] [place] [address] Care Team Providers Care Distance Education Teacher Name Role Phone Earl Dumont MD Primary Care Provider [phone] Reason for Visit * Reason Onset Date Comments Med Refill 11/21/2024 Encounter Details Date Type Department Care Team (Late st Contact Info) Description 11/21/2024 Telephone [facility] [address] [address] Earl Dumont MD [address] [place] [address] Med Refill Social History Tobacco [...] Rep - 11/21/2024 10:07 AM EDT Caller: SHAKILA COX Relationship: Emergency Contact Best call back number: [phone] Requested Prescriptions: VALSARTAN (DIDN'T SEE THIS ON HER LIST) Pharmacy where request should be sent: [id number] - [place] - [address] [address] [address] - [phone] - [phone] FX [phone] Last office visit with prescribing clinician: 11/15/2024 Last telemedicine visit with prescribing clinician: 11/15/2024 Next office visit with prescribing clinician: 11/22/2024 Additional details provided by patient: PATIENT HAS 2 LEFT Does the patient have less than a 3 day supply: [x] Yes [] No Farhad Cruz Rep 11/21/24 10:08 EDT documented in this encounter Plan of Treatment Upcoming Encounters Date Type Department Care Team (Late st Contact Info) Description 02/26/2025 3:15 PM EST Office Visit [facility] [address] [place] [id number] Earl Dumont MD [address] [place] [address] documented as of this encounter Visit Diagnoses Not on filedocumented in this encounter Additional Health Concerns Assessment Noted Time PHQ-2 Depression Total Score: 2 07/14/19 24 4:30 PM EDT documented as of this encounter Care Teams Distance Education Teacher Relationship Specialty Start Date End Date Earl Dumont MD [address] [place] [address] PCP - General Family Medicine 01/23/20 documented as of this encounter
--- OUTSIDE RECORDS SUMMARY | 2025-01-08 17:00 | XMS_ITS ---
Care Plan - [facility] Created on: January 08, 2025 Patito Garcia : 1945 Sex: Female Author Organization [facility] Address [address] [place] [address] Phone Care Team Providers Care Barrel Lapper Name Role Phone Mark Anthony ZAPATA, Souleymane Luong Unavailable [phone] Earl Samuel Unavailable Unavailable
--- OUTSIDE RECORDS SUMMARY | 2025-01-08 17:00 | XMS_ITS | Encounter Summary ---
Author Organization [facility] Address [address] [place] [address] Care Team Providers Care Relay Adjuster Name Role Phone Earl Dumont MD Primary Care Provider [phone] Encounter Details Date Type Department Care Team [...] Description 02/26/2025 3:15 PM EST Office Visit [facility] [address] [place] [address] Earl Dumont MD [address] [place] [place] [address] documented as of this encounter Visit Diagnoses Not on filedocumented in this encounter Additional Health Concerns Assessment Noted Time PHQ-2 Depression Total Score: 2 07/14/19 24 4:30 PM EDT documented as of this encounter Care Teams Relay Adjuster Relationship Specialty Start Date End Date Earl Dumont MD [address] [place] [address] PCP - General Family Medicine 01/23/20 documented as of this encounter
--- OUTSIDE RECORDS SUMMARY | 2025-01-08 17:00 | XMS_ITS | Clinical Summary ---
Author Organization [facility] Address [address] [place] [address] Phone Care Team Providers Care Yard Hand Name Role Phone Souleymane Hopson MD Unavailable [phone] Earl Samuel Unavailable Unavailable Reason for Referral Date Encounter Description Provider Reason for Referral 10/10/21 Post Op Tonja Oseguera PA-C Referral To Physician Reason for Visit and Chief Complaint The Chief Complaint is: L knee pain Problems Includes: Problems addressed during this encounter and other active Problems All Visits Onset Date Resolved Date Provider Condition S tatus Joint Pain in Both Knees 09/12/2021 Tonja sOeguera PA-C Active Last Documented On 2 2:34PM ; [facility], [facility] Plan of Treatment Fall Risk Assessment: This [...] with the patient. - Last Documented On 10/10/2021 4:39PM ; [facility], [facility] She will continue participating in physical therapy as well as daily, home-based therapy exercises with focus on strengthening and range of motion. The next follow-up appointment will be scheduled at the 1 year postoperative point in time and she will call the office if she has any questions or concerns in the meantime. - Last Documented On 10/10/2021 4:39PM ; [facility], [facility] Instructions to patient Lose weight Last Documented On 2 3:52PM ; [facility] Assessments Includes: Assessments from this encounter Findings 76-year-old female presents 6 weeks status post left total knee arthroplasty that took place on 08/28/21. She continues to do well during the post-operative period of time. Incision site is healing well and without signs of infection. She denies fever and chills. She has been participating in physical therapy with home health physical therapy with good progress. - Last Documented On 10/10/2021 4:39PM ; [facility], [facility] Instructions Includes: Instructions from this encounter Instructions to patient Lose weight Last Documented On 2 3:52PM ; [facility], [facility] Medical Equipment - Implanted Devices Includes: Current Devices No Medical Equipment Recorded Medications Includes: Medications discussed during this encounter and other current Medications Current Medications (continue as prescribed) traMADol HCl 50 MG Oral Tablet 08/27/2021 Provider: Nilesh Hare MD Diagnosis: Last Documented On 2 2:36PM By Rebeca Loza [facility], [facility] oxyCODONE HCl 5 MG Oral Tablet 08/27/2021 Provider: Nilesh Hare MD Diagnosis: Last Documented On 2 2:36PM By Rebeca Loza [facility], [facility] Meloxicam 15 MG Oral Tablet 08/27/2021 Provider: Nilesh Hare MD Diagnosis: Last Documented On 2 2:36PM By Rebeca Loza [facility], [facility] Trelegy Ellipta 200-62.5-25 MCG/INH Inhalation Aerosol Powder Breath Activated 08/13/2021 Provider: Diagnosis: Last Documented On 2 2:36PM By Rebeca Loza [facility], [facility] Atenolol 50 MG Oral Tablet 01/07/2021 Provider: Diagnosis: Last Documented On 1 3:28PM By Alisha Loza [facility], [facility] Past Medications on file Aspirin EC 81 MG Oral Tablet Delayed Release 08/27/2021 - 10/08/2021 Provider: Nilesh Hare MD Diagnosis: Take 1 tablet by mouth every 12 hours for 42 days post op Last Documented On 2 1:13PM By Nilesh Loza [facility] Cefadroxil 500 MG Oral Capsule 08/27/2021 - 09/03/2021 Provider: Nilesh Ross MD Diagnosis: Take 1 capsule by mouth every 12 hours for 7 day s Last Documented On 2 1:13PM By Nilesh Hare ; [facility] Acetaminophen 500 MG Oral Tablet 08/27/2021 - 09/10/2021 Provider: Nilesh Ross MD Diagnosis: Take 2 tablets by mouth every 8 hours as needed Last Documented On 2 1:13PM By Nilesh Hare ; [facility] Meloxicam 15 MG Oral Tablet 08/27/2021 - 09/10/2021 Pr ovider: Nilesh Hare MD Diagnosis: once a day for 14 days Last Documented On 2 1:13PM By Nilesh Hare ; [facility], [facility] traMADol HCl 50 MG Oral Tablet 08/27/2021 - 09/04/2021 Provider: Nilesh Ross MD Diagnosis: 2 tablets every 6 hours for break through pain Last Documented On 2 1:13PM By Nilesh Hare ; [facility], [facility] oxyCODONE HCl 5 MG Oral Tablet 08/27/2021 - 09/06/2021 Provider: Nilesh Ross MD Diagnosis: Take 1 tablet by mouth every 4-6hrs for moderate pain Last Documented On 2 1:13PM By Nilesh Hare ; [facility], [facility] Colace 100 MG Oral Capsule 08/27/2021 - 11/25/2021 Pro vider: Nilesh Hare MD Diagnosis: Take 1-2 capsules daily as needed Last Documented On 2 1:13PM By Nilesh Hare ; [facility], [facility] Ondansetron HCl 4 MG Oral Tablet 08/27/2021 - 09/03/2021 Provider: Nilesh Ross MD Diagnosis: 1 po q 6h prn nausea Last Documented On 2 1:13PM By Nilesh Hare ; [facility], [facility] Vitamin D3 50 MCG (1999 [place]) Oral Tablet 08/27/2021 - 10/26/2021 Provider: Nilesh Ross MD Diagnosis: Take 1 tablet by mouth daily Last Documented On 2 1:13PM By Nilesh Hare ; [facility] Mupirocin 2% External Ointment 07/31/2021 - 08/05/2021 Provider: Nilesh Ross MD Diagnosis: twice a day APPLY SMALL AMOU NT TWICE DAILY TO THE INSIDE OF EACH NOSTRIL STARTING AFTER PRE-ADMISSION TESTING APPOINTMENT Last Documented On 2 2:34PM By JONELLE Shah Medications Administered Includes: Administered Medications from this encounter No Administered Medications Recorded Vital Signs Includes: Vital Signs from this encounter Vital Name 10/10/2021 03:53P Blood Pressure Sitting (mmHg) 142/68 Pulse Rate-Sitting (bpm) 60 Height (in) 54 Weight (lb) 235 Body Mass Index (kg/m2) 56.7 Body Surface Area (m2) 1.9 Note: rw Last Documented: On 10/10/2021 3:53PM ; [facility] Results Includes: Results discussed during this encounter No Results Recorded For Specified Dates History of Present Illness Includes: History of Present Illness from this encounter DURAN Garcia is a 76 year old female. - Allergy list reviewed - Problem list reviewed - Medication list reviewed 76-year-old female presents for second postoperative follow-up appointment status post left total knee arthroplasty that took place on 08/28/21. She continues to do well during the post-operative period of time. Incision site is healing well and without signs of infection. She denies fever and chills. She has been participating in physical therapy with home health physical therapy with good progress. Social History Description Last Updated Tobacco non-user 10/10/2021 Last Documented On 2 4:39PM ; [facility] Not a smoker 09/12/2021 Last Documented On 2 3:52PM ; [facility] No caffeine use 01/07/2021 Last Documented On 2 3:52PM ; [facility] No recent change in diet 01/07/2021 Last Documented On 2 3:52PM ; [facility] Not a current smoker. 01/07/2021 Last Documented On 2 3:52PM ; [facility], [facility] Exercising regularly 07/10/2020 Last Documented On 2 3:52PM ; [facility], [facility] Non-smoker 07/10/2020 Last Documented On 2 3:52PM ; [facility], [facility] No recent change in diet 07/07/2018 Last Documented On 2 3:52PM ; [facility], [facility] No tobacco use 07/07/2018 Last Documented On 2 3:52PM ; [facility], [facility] Not a current smoker 07/07/2018 Last Documented On 2 3:52PM ; [facility], [facility] Not using alcohol 07/07/2018 Last Documented On 2 3:52PM ; [facility], [facility] Not using drugs 07/07/2018 Last Documented On 2 3:52PM ; [facility], [facility] Smoking status : Never smoker 07/07/2018 Last Documented On 2 3:52PM ; [facility], [facility] Procedures and Surgical History Includes: Procedures from this encounter Procedures Code Diagnosis Performing Provider Service L ocation Service Date use of tobacco assessment performed 1000F Last Documented On 2 3:52PM ; [facility], [facility] patient screened for future fall risk 3288F Last Documented On 2 3:52PM ; [facility], [facility] patient screened for future fall risk: documentation of any fall with injury in past year 1100F Last Documented On 2 3:53PM ; [facility], [facility] follow-up visit not in one month with PC P for elevated BP Last Documented On 2 3:52PM ; [facility], [facility] follow-up visit in one month Last Documented On 2 3:53PM ; [facility], [facility] referral to physician Last Documented On 2 3:53PM ; [facility], [facility] an X-ray was performed [address]14 Last Documented On 2 3:52PM ; [facility], [facility] Medical History Includes: Medical History addressed during this encounter Description Last Updated Past surgical history non-contributory 1 03/09/2020 Last Documented On 2 3:52PM ; [facility] History of arthritis 01/07/2021 Last Documented On 2 3:52PM ; [facility] History of Hypertension 01/07/2021 Last Documented On 2 3:52PM ; [facility] History of Sleep Apnea 01/07/2021 Last Documented On 2 3:52PM ; [facility] History of Thyroid Disease 01/07/2021 Last Documented On 2 3:52PM ; [facility] Past surgical history non-contributory 0 07/10/2020 Last Documented On 2 3:52PM ; [facility] A recent immunization for flu 10/03/2019 07/10/2020 Last Documented On 2 3:52PM ; [facility], [facility] A recent immunization for pneumococcal p neumonia 01/01/2019 07/10/2020 Last Documented On 2 3:52PM ; [facility] Arthritis 07/10/2020 Last Documented On 2 3:52PM ; [facility] History of depression 07/10/2020 Last Documented On 2 3:52PM ; [facility] History of osteoporosis 07/10/2020 Last Documented On 2 3:52PM ; [facility] Hypertension 07/10/2020 Last Documented On 2 3:52PM ; [facility] Thyroid Disease 07/10/2020 Last Documented On 2 3:52PM ; [facility] Family History Includes: Family History addressed during this encounter Description Last Updated Family history of osteoporosis Last Documented On 2 3:52PM ; [facility] Stroke / Seizures 01/07/2021 Last Documented On 2 3:52PM ; [facility] Diabetes mellitus 07/10/2020 Last Documented On 2 3:52PM ; [facility] Family history of hypertension 1 Last Documented On 2 3:52PM ; [facility] Family history of thromboembolic disease 07/10/2020 Last Documented On 2 3:52PM ; [facility] No significant family history 07/07/2018 Last Documented On 2 3:52PM ; [facility] Review of Systems Includes: Review [...] Time Diagnosis Post Op Tonja Oseguera PA-C [facility] 2 3:31PM 4:30PM Insurance Includes: Active Insurance Policies Plan Name Member ID Group # Subscriber Relationship Effect manuel Dates 1 - [employer] ([place]) Medicare [id number] Patito Landeros Hope Self 04/08/2020 - Unknown Clinical Notes Includes: Clinical Notes from this encounter No Clinical Notes Recorded
--- OUTSIDE RECORDS SUMMARY | 2025-01-08 17:00 | XMS_ITS | Encounter Summary ---
Author Organization [facility] Address [address] [place] [address] Care Team Providers Care Manager Embalmer Funeral Director Name Role Phone Earl Dumont MD Primary Care Provider [phone] Reason for Visit * Reason Onset Date Comments Med Management 12/05/2024 Encounter Details Date Type Department Care Team (Late st Contact Info) Description 12/05/2024 Telephone [facility] [address] [facility] [place] [address] Earl Dumont MD [address] [facility] [place] [address] Med Management Social History Tobacco [...] Garcia Relationship: Self Best call back number: [phone] What medication are you requesting: SOMETHING STRONGER THAN HYDROCODONE What are your current symptoms: LUMBAR FRACTURE Have you had these symptoms before: [x] Yes [] No Have you been treated for these symptoms before: [x] Yes [] No If a prescription is needed, what is your preferred pharmacy and phone number: [id number] - [place] [email or web address] [facility] [address] [facility] [address] - [phone] - [phone] FX Additional notes: PATIENT STATED THAT THE HYDROCODONE IS LIKE TAKING A TYLENOL. documented in this encounter Plan of Treatment Upcoming Encounters Date Type Department Care Team (Late st Contact Info) Description 02/26/2025 3:15 PM EST Office Visit [facility] [address] [place] [phone] Earl Dumont MD [address] [place] [address] documented as of this encounter Visit Diagnoses Not on filedocumented in this encounter Additional Health Concerns Assessment Noted Time PHQ-2 Depression Total Score: 2 07/14/19 24 4:30 PM EDT documented as of this encounter Care Teams Manager Embalmer Funeral Director Relationship Specialty Start Date End Date Earl Dumont MD [address] [place] [address] PCP - General Family Medicine 01/23/20 documented as of this encounter
--- OUTSIDE RECORDS SUMMARY | 2025-01-08 17:01 | XMS_ITS | Encounter Summary ---
Author Organization [facility] Address [address] [place] [address] Care Team Providers Care Account Manager Employee Benefits Name Role Phone Earl Dumont MD Primary Care Provider [phone] Encounter Details Date Type Department Care Team (Latest Contact Info) Description 12/08/2024 Travel Social History Tobacco Use Types Packs/Day [...] Description 02/26/2025 3:15 PM EST Office Visit [facility] [address] [facility] [place] [address] Earl Dumont MD [address] [place] [address] documented as of this encounter Visit Diagnoses Not on filedocumented in this encounter Additional Health Concerns Assessment Noted Time PHQ-2 Depression Total Score: 2 07/14/19 24 4:30 PM EDT documented as of this encounter Care Teams Account Manager Employee Benefits Relationship Specialty Start Date End Date Earl Dumont MD [address] [place] [address] PCP - General Family Medicine 01/23/20 documented as of this encounter
--- OUTSIDE RECORDS SUMMARY | 2025-01-08 17:01 | XMS_ITS | Encounter Summary ---
Author Organization [facility] Address [address] [place] [address] Care Team Providers Care Silverware Cleaner Name Role Phone Earl Dumont MD Primary Care Provider Reason for Visit * Reason Onset Date Comments Med Refill 10/02/2024 Encounter Details Date Type Department Care Team (Late st Contact Info) Description 10/02/2024 Refill [facility] [address] [place] [address] Earl Dumont MD [address] [place] [address] Social History Tobacco Use Types [...] Garcia Relationship: Self Best call back number: [phone] Requested Prescriptions: Requested Prescriptions Pending Prescriptions Disp Refills nystatin (MYCOSTATIN) 204269 UNIT/GM powder 60 g 1 Sig: Apply topically to the appropriate area as directed 3 (Three) Times a Day. Pharmacy where request should be sent: [id number] - [place] - [address] [address] [address] [facility] [phone] [facility] [phone] FX Last office visit with prescribing clinician: [...] Description 02/26/2025 3:15 PM EST Office Visit [facility] [address] [facility] [place] [phone] Earl Dumont MD [address] [facility] [place] [address] documented as of this encounter Visit Diagnoses Not on filedocumented in this encounter Additional Health Concerns Assessment Noted Time PHQ-2 Depression Total Score: 2 07/14/19 24 4:30 PM EDT documented as of this encounter Care Teams Silverware Cleaner Relationship Specialty Start Date End Date Earl Dumont MD [address] [facility] [place] [address] PCP - General Family Medicine 01/23/20 documented as of this encounter
--- OUTSIDE RECORDS SUMMARY | 2025-01-08 17:01 | XMS_ITS | Encounter Summary ---
Author Organization [facility] Address [address] [place] [address] Care Team Providers Care Director Information Name Role Phone Earl Dumont MD Primary Care Provider [phone] Reason for Visit * Reason Onset Date Comments New Med Request 12/15/2024 Encounter Details Date Type Department Care Team (Late st Contact Info) Description 12/15/2024 Telephone [facility] [address] [facility] [place] [address] Earl Dumont MD [address] [facility] [place] [address] New Med Request Social History [...] encounter Miscellaneous Notes * Telephone Encounter - Jessie You MA - 12/19/2024 8:24 AM EST Noted. * Telephone Encounter - Kia Cottrell RegSched Rep - 12/15/2024 3:52 PM EST Caller: JASMIN PABON Relationship: Emergency Contact Best call back number: [phone] What medication are you requesting: METHOCARBAMOL 500 MG 2 PILLS EVERY 8 HOURS Have you had these symptoms before: [x] Yes [] No Have you been treated for these symptoms before: [x] Yes [] No If a prescription is needed, what is your preferred pharmacy and phone number: [facility] [place] - [address] [address] [address] - [phone] - [phone] FX Additional notes:PATIENTS GRANDDAUGHTER STATES THAT SHE IS ON THIS documented in this encounter Plan of Treatment Upcoming Encounters Date Type Department Care Team (Late st Contact Info) Description 02/26/2025 3:15 PM EST Office Visit [facility] [address] [place] [phone] Earl Dumont MD [address] [place] [address] documented as of this encounter Visit Diagnoses Not on filedocumented in this encounter Additional Health Concerns Assessment Noted Time PHQ-2 Depression Total Score: 2 07/14/19 24 4:30 PM EDT documented as of this encounter Care Teams Director Information Relationship Specialty Start Date End Date Earl Dumont MD [address] [place] [address] PCP - General Family Medicine 01/23/20 documented as of this encounter
--- OUTSIDE RECORDS SUMMARY | 2025-01-08 17:01 | XMS_ITS | Encounter Summary ---
Author Organization [facility] Address [address] [place] [address] Care Team Providers Care Hydraulic Oil Tool Operator Name Role Phone Earl Dumont MD Primary Care Provider [phone] Encounter Details Date Type Department Care Team (Late st Contact Info) Description 11/09/2024 Telephone [facility] [address] [facility] [place] [address] Earl Dumont MD [address] [facility] [place] [place] [address] Social History Tobacco Use Types [...] Description 02/26/2025 3:15 PM EST Office Visit [facility] [address] [place], [place] [address] Earl Dumont MD [address] [place] [place] [address] documented as of this encounter Visit Diagnoses Not on filedocumented in this encounter Additional Health Concerns Assessment Noted Time PHQ-2 Depression Total Score: 2 07/14/19 24 4:30 PM EDT documented as of this encounter Care Teams Hydraulic Oil Tool Operator Relationship Specialty Start Date End Date Earl Dumont MD [address] [place] [address] PCP - General Family Medicine 01/23/20 documented as of this encounter
--- OUTSIDE RECORDS SUMMARY | 2025-01-08 17:01 | XMS_ITS | Encounter Summary ---
Author Organization [facility] Address [address] [place] [address] Care Team Providers Care Cashier And Salesperson Name Role Phone Earl Dumont MD Primary Care Provider [phone] Reason for Visit * Reason Onset Date Comments Med Refill 12/20/2024 Encounter Details Date Type Department Care Team (Late st Contact Info) Description 12/20/[address] 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 apixaban (ELIQUIS) 5 MG tablet tablet 10 tablet 0 Sig: Take 1 tablet by mouth 2 (Two) Times a Day. amiodarone (PACERONE) 200 MG tablet 120 tablet 5 Sig: Take 2 tablets by mouth Every 12 (Twelve) Hours. levothyroxine (SYNTHROID, LEVOTHROID) 125 MCG tablet 90 tablet 0 Sig: Take 1 tablet by mouth Daily. Pharmacy where request should be sent: [facility] [address] [address] S - [phone] PH - [phone] FX Last office visit with prescribing clinician: 12/08/2024 Last telemedicine visit with prescribing clinician: Visit date not found Next office visit with prescribing clinician: 02/19/2025 Does the patient have less than a 3 day supply: [] Yes [x] No Farhad Alan Rep 12/20/24 13:04 EST documented in this encounter Plan of Treatment Upcoming Encounters Date Type Department Care Team (Late st Contact Info) Description 02/26/2025 3:15 PM EST Office Visit 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
--- OUTSIDE RECORDS SUMMARY | 2025-01-08 17:01 | XMS_ITS | Encounter Summary ---
[facility] Address [address] [place] [address] Care Team Providers Care Technical Services Rep Name Role Phone Earl Dumont MD Primary Care Provider [phone] Reason for Visit * Reason Comments Med Refill Encounter Details Date Type Department Care Team (Late st Contact Info) Description 12/22/2024 Refill [facility] 210 [facility] [place] [address] Earl Dumont MD [address] [facility] [place] [address] Age-related osteoporosis with current pathological fracture with routine healing, subsequent encounter; Compression fracture of L2 vertebra with routine healing, subsequent encounter Social History Tobacco Use Types Packs/Day Years [...] Description 02/26/2025 3:15 PM EST Office Visit [facility] [address] [address] Earl Dumont MD [address] [address] documented as of this encounter Visit Diagnoses Diagnosis Age-related osteoporosis with current pathological fracture with routine healing, subsequent encounter Compression fracture of L2 vertebra with routine healing, subsequent encounter documented in this encounter Additional Health Concerns Assessment Noted Time PHQ-2 Depression Total Score: 2 07/14/19 24 4:30 PM EDT documented as of this encounter Care Teams Technical Services Rep Relationship Specialty Start Date End Date aErl Dumont MD [address] [place] [address] PCP - General Family Medicine 01/23/20 documented as of this encounter
--- OUTSIDE RECORDS SUMMARY | 2025-01-08 17:01 | XMS_ITS | Encounter Summary ---
[facility] Address [address] [place] [address] Care Team Providers Care Director Group Sales Name Role Phone Earl Gomez MD Primary Care Provider [phone] Reason for Visit * Reason Onset Date Comments MEDICAL EQUITMENT 12/06/2024 Encounter Details Date Type Department Care Team (Late st Contact Info) Description 12/06/2024 Telephone [facility] 210 [facility] [place] [address] Earl Gomez MD [address] [facility] [place] [address] MEDICAL EQUITMENT Social History Tobacco Use Types Packs/Day Years [...] Telephone Encounter - Sadaf Godinez MA - 12/07/2024 10:29 AM EDT Attempted to call [employer], no answer [facility] TO RELAY: I can write for this, but sometimes insurance will not cover this type of equipment and pts will still have to pay for it. [employer] can be expensive. Where would you like this sent? * Telephone Encounter - Earl Gomez MD - 12/06/2024 5:02 PM EDT I can write for this, but sometimes insurance will not cover this type of equipment and pts will still have to pay for it. Purewick can be expensive. * Telephone Encounter - Kari Blanton RegSched Rep - 12/06/2024 12:19 PM EDT Caller: SHAKILA COX Relationship: Other Best call back number: [phone] Equipment requested: PUREWICK Reason for the request: MOBILITY ISSUES DUE TO FALL, TROUBLE TRANSFERRING FROM CHAIR TO TOILET Prescribing Provider: EARL GOMEZ Additional information or concerns: PATIENT IS NEEDING HER INSURANCE TO PAY FOR IT documented in this encounter Plan of Treatment Upcoming Encounters Date Type Department Care Team (Late st Contact Info) Description 02/26/2025 3:15 PM EST Office Visit [facility] [address] [facility] [place] [phone] Earl Gomez MD [address] [facility] [place] [address] documented as of this encounter Visit Diagnoses Not on filedocumented in this encounter Additional Health Concerns Assessment Noted Time PHQ-2 Depression Total Score: 2 07/14/19 24 4:30 PM EDT documented as of this encounter Care Teams Director Group Sales Relationship Specialty Start Date End Date Earl Gomez MD [address] [place] [address] PCP - General Family Medicine 01/23/20 documented as of this encounter
--- OUTSIDE RECORDS SUMMARY | 2025-01-08 17:01 | XMS_ITS | Encounter Summary ---
[facility] Organization [facility] Address [address] [place] [address] Care Team Providers Care Log Rider Name Role Phone Earl Dumont MD Primary Care Provider [phone] Reason for Visit * Reason Onset Date Comments Med Refill 12/22/2024 Encounter Details Date Type Department Care Team (Late st Contact Info) Description 12/22/2024 Telephone [facility] [address] [facility] [place] [address] Earl Dumont MD [address] [facility] [place] [place] [address] Med Refill Social History Tobacco [...] Telephone Encounter - Sadaf Godinez MA - 12/22/2024 5:18 PM EST ATTEMPTED TO CALL PT, NO ANSWER [facility] TO RELAY: MEDICATION HAS BEEN SENT, FOLLOW UP ON 02/19/2025 * Telephone Encounter - Ronald Garrison MD - 12/22/2024 5:04 PM EST Please call, requested meds sent to pharmacy. [place] reviewed 12/22/2024 . Follow up appt is scheduled on 02/19/2025 . Last office visit : 12/08/2024 * Telephone Encounter - BlantonKari RegSched Rep - 12/22/2024 2:00 PM EST Caller: SHAKILA Relationship: Other Best call back number: [phone] Requested Prescriptions: Requested Prescriptions Pending Prescriptions Disp Refills HYDROcodone-acetaminophen (NORCO) 5-325 MG per tablet 20 tablet 0 Si/2-1 PO Q 12 hours PRN pain form compression fracture Pharmacy where request should be sent: [facility] [place] [address] [address] - [phone] [facility] [phone] FX Last office visit with prescribing clinician: [...] a voicemail: [] Yes [x] No Farhad Ibarra 12/22/24 14:01 EST documented in this encounter Plan of Treatment Upcoming Encounters Date Type Department Care Team (Late st Contact Info) Description 02/26/2025 3:15 PM EST Office Visit [facility] [address] [place] [address] Earl Dumont MD [address] [place] [address] documented as of this encounter Visit Diagnoses Diagnosis Age-related osteoporosis with current pathological fracture with routine healing, subsequent encounter Compression fracture of L2 vertebra with routine healing, subsequent encounter documented in this encounter Additional Health Concerns Assessment Noted Time PHQ-2 Depression Total Score: 2 07/14/19 24 4:30 PM EDT documented as of this encounter Care Teams Log Rider Relationship Specialty Start Date End Date Earl Dumont MD [address] [place] [address] PCP - General Family Medicine 01/23/20 documented as of this encounter
--- OUTSIDE RECORDS SUMMARY | 2025-01-08 17:01 | XMS_ITS | Clinical Summary ---
[facility] Organization [facility] Address [address] [place] [address] Care Team Providers Care Posting Specialist Name Role Phone Earl Dumont MD Primary Care Provider [phone] Allergies Active Allergy Reactions Criticality Noted Date [...] (Two) Times a Day. 3 each 1 05/19/2 025 Active docusate sodium (Colace) 100 MG [...] mouth Daily. 90 tablet 1 025 Active busPIRone (BUSPAR) 30 MG tabletIndications :Generalized anxiety disorder,Recurren t major depressive disorder, in full remission Take 1 tablet by mouth 2 (Two) Times a Day. 180 tablet 1 025 Active atorvastatin (Lipitor) 40 MG tabletIndications [...] MOUTH EVERY DAY 30 tablet 025 Active dapagliflozin (Farxiga) 5 MG tablet tablet Take 1 tablet by mouth Daily. 90 tablet 1 025 Active nystatin (MYCOSTATIN) 103988 UNIT/GM powder Apply topically to the appropriate [...] FOR ANXIETY 20 tablet 1 025 Active pantoprazole (Protonix) 40 MG EC tabletIndications :Gastroesophageal reflux disease, unspecified whether esophagitis present Take 1 tablet by mouth Daily. 30 tablet 5 025 Active traMADol (ULTRAM) 50 MG tabletIndications :Right leg pain,Pain of right lower extremity 1 PO BID PRN leg pain 60 tablet 025 Active traZODone (DESYREL) 150 MG tabletIndications :Primary insomnia Take 1 tablet by mouth every night at bedtime. 90 tablet 025 Active alendronate (FOSAMAX) 70 MG tabletIndications :Age-related osteoporosis without current pathological fracture Take 1 tablet by mouth Every 7 (Seven) Days. 4 tablet 2 025 Active apixaban (ELIQUIS) 5 MG tablet tabletIndications :History of pulmonary embolism,Multiple subsegmental pulmonary emboli without acute cor pulmonale Take 1 tablet by mouth 2 (Two) Times a Day. 10 tablet 025 Active amiodarone (PACERONE) 200 MG tablet Take 1 tablet by mouth Every 12 (Twelve) Hours. 120 tablet 5 025 Active levothyroxine (SYNTHROID, LEVOTHROID) 125 MCG tabletIndications :Acquired hypothyroidism Take 1 tablet by mouth Daily. 90 tablet 025 Active Fluticasone-Umecl idin-Vilant (Trelegy Ellipta) 100-62.5-25 MCG/ACT inhalerIndication s:Panlobular emphysema Inhale 1 puff Daily. 1 each 5 025 Active HYDROcodone-aceta minophen (NORCO) 5-325 MG per tabletIndications :Age-related osteoporosis with current pathological fracture with routine healing, subsequent encounter,Alanna isak fracture of L2 vertebra with routine healing, subsequent encounter TAKE 1/2 TO 1 TABLET BY MOUTH EVERY TWELVE HOURS NEEDED FOR pain 20 tablet Active traZODone (DESYREL) 150 MG tabletIndications :Primary insomnia Take 1 tablet by mouth every night at bedtime. 90 tablet 025 2024 Discontinued(R eorder) levothyroxine (SYNTHROID, LEVOTHROID) 125 MCG tabletIndications :Acquired hypothyroidism Take 1 tablet by mouth Daily. 90 tablet 025 2024 Discontinued(R eorder) alendronate (FOSAMAX) 70 MG tabletIndications :Age-related osteoporosis without current pathological fracture Take 1 tablet by mouth Every 7 (Seven) Days. 4 tablet 2 2024 Discontinued(R eorder) apixaban (ELIQUIS) 5 MG tablet tabletIndications :History of pulmonary embolism,Multiple subsegmental pulmonary emboli without acute cor pulmonale Take 1 tablet by mouth 2 (Two) Times a Day. 10 tablet 2024 Discontinued(R eorder) amiodarone (PACERONE) 200 MG tablet Take 2 tablets by mouth Every 12 (Twelve) Hours. 120 tablet 5 2024 Discontinued(R eorder) traMADol (ULTRAM) 50 MG tabletIndications :Right leg pain,Pain of right lower extremity 1 PO BID PRN leg pain 60 tablet 2024 Discontinued(R eorder) HYDROcodone-aceta minophen (NORCO) 5-325 MG per tabletIndications :Age-related osteoporosis with current pathological fracture with routine healing, subsequent encounter,Alanna isak fracture of L2 vertebra with routine healing, subsequent encounter 1/2-1 PO Q 12 hours PRN pain form compression fracture 20 tablet 025 2024 Discontinued(R eorder) HYDROcodone-aceta minophen (NORCO) 5-325 MG per tabletIndications :Age-related osteoporosis with current pathological fracture with routine healing, subsequent encounter,Alanna isak fracture of L2 vertebra with routine healing, subsequent encounter 1/2-1 PO Q 12 hours PRN pain form compression fracture 20 tablet 025 2024 Discontinued(R eorder) HYDROcodone-aceta minophen (NORCO) 5-325 MG per tabletIndications :Age-related osteoporosis with current pathological fracture with routine healing, subsequent encounter,Alanna isak fracture of L2 vertebra with routine healing, subsequent encounter 1/2-1 PO Q 12 hours PRN pain form compression fracture 20 tablet 025 2024 Discontinued HYDROcodone-aceta minophen (NORCO) 5-325 MG per tabletIndications :Age-related osteoporosis with current pathological fracture with routine healing, subsequent encounter,Alanna isak fracture of L2 vertebra with routine healing, subsequent encounter TAKE 1/2 TO 1 TABLET BY MOUTH EVERY TWELVE HOURS NEEDED FOR pain 20 tablet 025 2024 Discontinued(R eorder) Active Problems Problem Noted Date Diagnosed Date Gait instability 12/11/2024 Incontinence in female 12/06/2024 (HFpEF) heart failure with preserved ejection fr [...] Encounters Date Type Department Care Team Description 01/08/2025 Refill [facility] [address] [place] [address] Earl Dumont MD Age-related osteoporosis with current pathological fracture with routine healing, subsequent encounter; Compression fracture of L2 vertebra with routine healing, subsequent encounter 12/25/2024 Telephone [facility] [address] [facility] [place] [address] Earl Dumont MD Med Refill 12/22/2024 Refill [facility] [address] [facility] [place] [address] Earl Dumont MD Age-related osteoporosis with current pathological fracture with routine healing, subsequent encounter; Compression fracture of L2 vertebra with routine healing, subsequent encounter 12/22/2024 [facility] [address] [facility] [place] [address] Earl Dumont MD Med Refill 12/22/2024 Refill [facility] [address] [facility] [place] [address] Earl Dumont MD Memory change 12/20/2024 Refill [facility] [address] [facility] [place] [address] Earl Dumont MD Age-related osteoporosis without current pathological fracture; History of pulmonary embolism; Multiple subsegmental pulmonary emboli without acute cor pulmonale; Acquired hypothyroidism 12/15/2024 [facility] [address] [facility] [address] [place] [address] Earl Dumont MD New Med Request 12/15/2024 Refill [facility] [address] [facility] [place] [address] Earl Dumont MD Age-related osteoporosis with current pathological fracture with routine healing, subsequent encounter; Compression fracture of L2 vertebra with routine healing, subsequent encounter; Primary insomnia 12/14/2024 Refill [facility] [address] [place] [address] Earl Dumont MD Right leg pain; Pain of right lower extremity 12/11/2024 Telephone [facility] [address] [place] [address] Earl Dumont MD MEDICAL EQUIPMENT 12/08/2024 2:00 PM EDT Office Visit [facility] [address] [place] [address] Earl Dumont MD Recurrent falls (Primary Dx); Chronic obstructive pulmonary disease with (acute) lower respiratory infection; Coccygodynia; Right leg pain; Chronic heart failure with preserved ejection fraction; Diastolic dysfunction with chronic heart failure 12/08/2024 Travel 12/06/2024 Refill [facility] [address] [place] [address] Earl Dumont MD Age-related osteoporosis with current pathological fracture with routine healing, subsequent encounter; Compression fracture of L2 vertebra with routine healing, subsequent encounter 12/06/2024 Telephone [facility] [address] [place] [address] Earl Dumont MD MEDICAL EQUITMENT 12/05/2024 Telephone [facility] [address] [place] [address] Earl Dumont MD Med Management 11/22/2024 2:00 PM EDT Office Visit [facility] [address] [place] [address] Earl Dumont MD Age-related osteoporosis with current pathological fracture with routine healing, subsequent encounter (Primary Dx); Compression fracture of L2 vertebra with routine healing, subsequent encounter; Gastroesophageal reflux disease, unspecified whether esophagitis present; Coccygodynia 11/22/2024 Travel 11/21/2024 Telephone [facility] [address] [place] [address] Earl Dumont MD Med Refill 11/15/2024 [facility] [address] [facility] [place] [address] Earl Dumont MD CALLBACK 11/14/2024 Refill [facility] [address] [facility] [place] [address] Earl Dumont MD Generalized anxiety disorder 11/13/2024 Refill [facility] [address] [facility] [place] [address] Earl Dumont MD 11/09/2024 [facility] [address] [facility] [place] [address] Earl Dumont MD 10/26/2024 [facility] [address] [facility] [place] [address] Earl Dumont MD Med Refill 10/13/2024 Refill [facility] [address] [facility] [place] [address] Earl Dumont MD Generalized anxiety disorder 10/12/2024 Refill [facility] [address] [facility] [place] [address] Earl Dumont MD Generalized anxiety disorder 10/11/2024 Refill [facility] [address] [facility] [place] [address] Earl Dumont MD Essential hypertension; Memory change; Recurrent major depressive disorder, in full remission; Generalized anxiety disorder from Last 3 Months Immunizations Immunization Administration [...] Pulse 64 12/08/2024 2:15 PM EDT Temperature 36.2 C (97.1 F) 06/26/2024 12:26 PM EDT Respiratory Rate 20 12/08/2024 2:15 PM EDT Oxygen Saturation 94% 12/08/2024 2:15 PM EDT Inhaled Oxygen Concentration - - Weight 105 kg (232 lb) 12/08/2024 2:15 PM EDT Height 160 cm (5' 2.99 ) 12/08/2024 2:15 PM EDT Body Mass Index 41.11 12/08/2024 2:15 PM EDT Plan of Treatment Upcoming Encounters Date Type Department Care Team (Late st Contact Info) Description 02/26/2025 3:15 PM EST Office Visit [facility] [address] [address] Earl Dumont MD [address] [address] Health Maintenance Due Date Last Done Comments ZOSTER VACCINE (1 of 2) 1994 TDAP/TD VACCINES (1 - Tdap) 12/18/1998 12/17/1998 RSV Vaccine - Adults (1 - 1- dose 75+ series) 2019 COVID-19 Vaccine (2024-2 6 season) 2024 09/09/2021, 04/17/2020, 03/20/2020 LIPID PANEL 12/05/2024 12/06/2023, 03/0 05/2023, 10/02/2022, Additional history exists ANNUAL WELLNESS VISIT 08/21/2025 08/21/2024 , 07/14/2023, 07/01/2022, Additional history exists Pneumococcal Vaccine 50+ Completed 021, 01/02/2019, 12/30/2015 INFLUENZA VACCINE Completed 11/22/2024, , 10/03/2019, Additional history exists DXA SCAN Discontinued Medical Devices Implanted Type Area Parts Analyst Device Identifier Shelf Expiration Date Model / Serial / Lot Cmt Bone Simplex/P Full Dose 10/Pk - [id number] Implanted:Qty : 1 on 08/28/2021 by Nilesh Hare MD at [facility] Implant Left: Knee MARTÍN DEWEY [id number] 09/08/2023 [id number] / / [id number] Cmt Bone Simplex/P Full Dose 10/Pk - [id number] Implanted:Qty : 1 on 08/28/2021 by Nilesh Hare MD at [facility] Implant Left: Knee MARTÍN DEWEY 11/08/2023 [id number] / / [id number] Dev Contrl Tiss Stratafix Spiral Pdo Bidir 1 [id number] - [id number] Implanted:Qty : 1 on 08/28/2021 by Nilesh Hare MD at [facility] Implant Left: Knee [employer] J 06/07/2026 [id number] / / [id number] Insrt Tib/Kn Triath Ps A/Poly Sz4 9mm - [id number] Implanted:Qty : 1 on 08/28/2021 by Nilesh Hare MD at [facility] Implant Left: Knee MARTÍN DEWEY [id number] 12/27/2021 [id number] / / [id number] Comp Fem Triath Ps Cmt No4 Lt - [id number] Implanted:Qty : 1 on 08/28/2021 by Nilesh Hare MD at [facility] Implant Left: Knee MARTÍN DEWEY [id number] 06/18/2025 [id number] / / [id number] Peg Fem Fix Triathlon Dist Mod Pk/2 - [id number] Implanted:Qty : 1 on 08/28/2021 by Nilesh Hare MD at [facility] Implant Left: Knee MARTÍN DEWEY [id number] 06/01/2025 [id number] / / [id number] Pat Triath Asym X3 22n00xh - [id number] Implanted:Qty : 1 on 08/28/2021 by Nilesh Hare MD at [facility] Implant Left: Knee MARTÍN DEWEY [id number] 06/21/2026 [id number] / / [id number] Totl Kn Med Demand Martín - [id number] Implanted:Qty : 1 on 08/28/2021 by Nilesh [...] - 12/07/2023 8:17 AM EDT Performed at: [address] [place], [place] [address], [place] [id number] Social Studies Department Chair: Osito Cabezas PhD, Phone: [phone] Patient Fasting: N us Earl Dumont MD LAB BLOOD ORDERABLES Final Resu lt [facility] (AMBULATORY) [address] [place] [address], [facility] [address] [place] [address], from Last 3 Months or Most Recently [...] Of Support Discussed With: Patient Care Teams Posting Specialist Relationship Specialty Start Date End Date Earl Dumont MD [address] [place] [address] PCP - General Family Medicine 01/23/20
--- OUTSIDE RECORDS SUMMARY | 2025-01-08 17:01 | XMS_ITS | Encounter Summary ---
[facility] Address [address] [place] [address] Care Team Providers Care Physics Instructor Name Role Phone Earl Dumont MD Primary Care Provider [phone] Reason for Visit * Reason Onset Date Comments Med Refill 11/13/2024 Encounter Details Date Type Department Care Team (Late st Contact Info) Description 11/13/2024 Refill [facility] [address] [place] [address] Earl Duomnt MD [address] [place] [address] Social History Tobacco Use Types [...] place to sleep or slept in a jail (including now)? No 10/01/2021 PHQ-2 Answer Date [...] Day. Pharmacy where request should be sent: [id number] - [place], [place] - [address] [address] [address] [phone] [facility] [phone] FX Last office visit with prescribing clinician: [...] Description 02/26/2025 3:15 PM EST Office Visit [facility] [address] [place] [address] Earl Dumont MD [address] [place] [address] documented as of this encounter Visit Diagnoses Not on filedocumented in this encounter Additional Health Concerns Assessment Noted Time PHQ-2 Depression Total Score: 2 07/14/19 24 4:30 PM EDT documented as of this encounter Care Teams Physics Instructor Relationship Specialty Start Date End Date Earl Dumont MD [address] [place] [address] PCP - General Family Medicine 01/23/20 documented as of this encounter
--- OUTSIDE RECORDS SUMMARY | 2025-01-08 17:01 | XMS_ITS | Encounter Summary ---
[facility] Address [address] [place] [address] Care Team Providers Care Select Banker Name Role Phone Earl Dumont MD Primary Care Provider [phone] Reason for Visit * Reason Onset Date Comments Med Refill 12/15/2024 Encounter Details Date Type Department Care Team (Late st Contact Info) Description 12/15/2024 Refill [facility] [address] [place] [address] Earl Dumont MD [address] [place] [address] Age-related osteoporosis with current pathological fracture with routine healing, subsequent encounter; Compression fracture of L2 vertebra with routine healing, subsequent encounter; Primary insomnia Social History Tobacco Use Types Packs/Day Years [...] encounter Miscellaneous Notes * Telephone Encounter - Kia CottrellFarhad Rep - 12/15/2024 3:50 PM EST Caller: JASMIN PABON Relationship: Emergency Contact Best call back number: [phone] Requested Prescriptions: Requested Prescriptions Pending Prescriptions Disp Refills HYDROcodone-acetaminophen (NORCO) 5-325 MG per tablet 20 tablet 0 Si/2-1 PO Q 12 hours PRN pain form compression fracture traZODone (DESYREL) 150 MG tablet 90 tablet 0 Sig: Take 1 tablet by mouth every night at bedtime. Pharmacy where request should be sent: [facility] - [place] - [address] [address] [address] - [phone] - [phone] FX Last office visit with prescribing clinician: [...] a voicemail: [] Yes [x] No Farhad Mortensen Rep 12/15/24 15:52 EST documented in this encounter Plan of Treatment Upcoming Encounters Date Type Department Care Team (Late st Contact Info) Description 02/26/2025 3:15 PM EST Office Visit [facility] [address] [facility] [place] [address] Earl Dumont MD [address] [facility] [place] [address] documented as of this encounter Visit Diagnoses Diagnosis Age-related osteoporosis with current pathological fracture with routine healing, subsequent encounter Compression fracture of L2 vertebra with routine healing, subsequent encounter Primary insomnia Persistent disorder of initiating or maintaining sleep documented in this encounter Additional Health Concerns Assessment Noted Time PHQ-2 Depression Total Score: 2 07/14/19 24 4:30 PM EDT documented as of this encounter Care Teams Select Banker Relationship Specialty Start Date End Date Earl Dumont MD [address] [place] [address] PCP - General Family Medicine 01/23/20 documented as of this encounter
--- OUTSIDE RECORDS SUMMARY | 2025-01-08 17:01 | XMS_ITS | Encounter Summary ---
[facility] Organization [facility] Address [address] [place] [address] Care Team Providers Care Clamp Remover Name Role Phone Earl Dumont MD Primary Care Provider [phone] Reason for Visit * Reason Comments Med Refill Encounter Details Date Type Department Care Team (Late st Contact Info) Description 10/12/2024 Refill [facility] [address] [facility] [place] [address] Earl Dumont MD [address] [facility] [place] [address] Generalized anxiety disorder Social History [...] CENTER FAMILY MEDICINE [address] [place] [address] Earl Dumont MD [address] [place] [address] documented as of this encounter Visit Diagnoses Diagnosis Generalized anxiety disorder documented in this encounter Additional Health Concerns Assessment Noted Time PHQ-2 Depression Total Score: 2 07/14/19 24 4:30 PM EDT documented as of this encounter Care Teams Clamp Remover Relationship Specialty Start Date End Date Earl Dumont MD [address] [place] [address] PCP - General Family Medicine 01/23/20 documented as of this encounter
--- OUTSIDE RECORDS SUMMARY | 2025-01-08 17:01 | XMS_ITS | Encounter Summary ---
[facility] Organization [facility] Address [address] [place] [address] Care Team Providers Care Athletic Team Physician Name Role Phone Earl Dumont MD Primary Care Provider [phone] Reason for Visit * Reason Onset Date Comments Med Refill 01/08/2025 Encounter Details Date Type Department Care Team (Late st Contact Info) Description 01/08/2025 Refill [facility] [address] [place] [address] Earl Dumont MD [address] [place] [address] Age-related osteoporosis with current pathological [...] encounter Miscellaneous Notes * Telephone Encounter - Joshua Hill - 01/08/2025 11:59 AM EST Caller: SHAKILA COX Relationship: Grandchild Best call back number: [phone] Requested Prescriptions: Requested Prescriptions Pending Prescriptions Disp Refills HYDROcodone-acetaminophen (NORCO) 5-325 MG per tablet 20 tablet 0 Sig: TAKE 1/2 TO 1 TABLET BY MOUTH EVERY TWELVE HOURS NEEDED FOR pain Pharmacy where request should be sent: [facility] - [place] [address] - [phone] [place] [phone] FX Last office visit with prescribing clinician: 12/08/2024 Last telemedicine visit with prescribing clinician: Visit date not found Next office visit with prescribing clinician: 02/26/2025 Additional details provided by patient: GRANDDAUGHTER OF PATIENT HAS CALLED REQUESTING A REFILL ON ABOVE MEDICATION. Does the patient have less than a 3 day supply: [x] Yes [] No Would you like a call back once the refill request has been completed: [] Yes [x] No If the office needs to give you a call back, can they leave a voicemail: [] Yes [x] No Joshua Hill 01/08/25 12:00 EST documented in this encounter Plan of Treatment Upcoming Encounters Date Type Department Care Team (Late st Contact Info) Description 02/26/2025 3:15 PM EST Office Visit [facility] 210 [facility] [place] [phone] Earl Dumont MD 210 [facility] [place] [address] documented as of this encounter Visit Diagnoses Diagnosis Age-related osteoporosis with current pathological fracture with routine healing, subsequent encounter Compression fracture of L2 vertebra with routine healing, subsequent encounter documented in this encounter Additional Health Concerns Assessment Noted Time PHQ-2 Depression Total Score: 2 07/14/19 24 4:30 PM EDT documented as of this encounter Care Teams Athletic Team Physician Relationship Specialty Start Date End Date Earl Dumont MD [address] [address] PCP - General Family Medicine 01/23/20 documented as of this encounter
--- OUTSIDE RECORDS SUMMARY | 2025-01-08 17:01 | XMS_ITS | Encounter Summary ---
[facility] Address [address] [place] [address] Care Team Providers Care Advance Scout Name Role Phone Earl Dumont MD Primary Care Provider [phone] Reason for Visit * Reason Comments Med Refill Encounter Details Date Type Department Care Team (Late st Contact Info) Description 12/22/2024 Refill [facility] 210 [facility] [place] [address] Earl Dumont MD [address] [facility] [place] [address] Memory change Social History Tobacco Use Types [...] [facility] [address] [place] [address] Earl Dumont MD [address] [place] [address] documented as of this encounter Visit Diagnoses Diagnosis Memory change Memory loss documented in this encounter Additional Health Concerns Assessment Noted Time PHQ-2 Depression Total Score: 2 07/14/19 24 4:30 PM EDT documented as of this encounter Care Teams Advance Scout Relationship Specialty Start Date End Date Earl Dumont MD [address] [place] [address] PCP - General Family Medicine 01/23/20 documented as of this encounter
--- OUTSIDE RECORDS SUMMARY | 2025-01-08 17:01 | XMS_ITS | Encounter Summary ---
[facility] Address [address] [place] [address] Care Team Providers Care Examination Proctor Name Role Phone Earl Dumont MD Primary Care Provider [phone] Reason for Visit * Reason Onset Date Comments CALLBACK 11/15/2024 Encounter Details Date Type Department Care Team (Late st Contact Info) Description 11/15/2024 Telephone [facility] [address] [facility] [place] [address] Earl Dumont MD [address] [facility] [place] [place] [address] CALLBACK Social History Tobacco Use [...] ANDREZ Relationship: Grandchild Best call back number: [phone] What was the call regarding: PATIENTS GRANDDAUGHTER [...] Description 02/26/2025 3:15 PM EST Office Visit [facility] [address] [facility] [place] [address] Earl Dumont MD [address] [place] [address] documented as of this encounter Visit Diagnoses Not on filedocumented in this encounter Additional Health Concerns Assessment Noted Time PHQ-2 Depression Total Score: 2 07/14/19 24 4:30 PM EDT documented as of this encounter Care Teams Examination Proctor Relationship Specialty Start Date End Date Earl Dumont MD [address] [address] PCP - General Family Medicine 01/23/20 documented as of this encounter
--- OUTSIDE RECORDS SUMMARY | 2025-01-08 17:01 | XMS_ITS | Encounter Summary ---
[facility] Address [address] [place] [address] Care Team Providers Care Shell Assembler Name Role Phone Earl Dumont MD Primary Care Provider [phone] Reason for Visit * Reason Onset Date Comments Med Refill 12/06/2024 Encounter Details Date Type Department Care Team (Late st Contact Info) Description 12/06/2024 Refill [facility] [address] [place] [address] Earl Dumont MD [address] [place] [address] Age-related osteoporosis with current pathological [...] encounter Miscellaneous Notes * Telephone Encounter - Kari Blanton RegSched Rep - 12/06/2024 12:22 PM EDT Caller: SHAKILA COX Relationship: Other Best call back number: [phone] Requested Prescriptions: Requested Prescriptions Pending Prescriptions Disp Refills HYDROcodone-acetaminophen (NORCO) 5-325 MG per tablet 20 tablet 0 Si/2-1 PO Q 12 hours PRN pain form compression fracture Pharmacy where request should be sent: [id number] - [place], [place] - [id number] AT [address] - [phone] - [phone] FX Last office visit with prescribing clinician: 11/22/2024 Last telemedicine visit with prescribing clinician: Visit [...] voicemail: [] Yes [x] No Farhad Ibarra Rep 12/06/24 12:24 EDT documented in this encounter Plan of Treatment Upcoming Encounters Date Type Department Care Team (Late st Contact Info) Description 02/26/2025 3:15 PM EST Office Visit [facility] 210 [facility] [place] [phone] Earl Dumont MD [address] [place] [address] documented as of this encounter Visit Diagnoses Diagnosis Age-related osteoporosis with current pathological fracture with routine healing, subsequent encounter Compression fracture of L2 vertebra with routine healing, subsequent encounter documented in this encounter Additional Health Concerns Assessment Noted Time PHQ-2 Depression Total Score: 2 07/14/19 24 4:30 PM EDT documented as of this encounter Care Teams Shell Assembler Relationship Specialty Start Date End Date Earl Dumont MD [address] [place] [address] PCP - General Family Medicine 01/23/20 documented as of this encounter
--- OUTSIDE RECORDS SUMMARY | 2025-01-08 17:01 | XMS_ITS | Encounter Summary ---
[facility] Address [address] [place] [address] Care Team Providers Care Bridge Inspector Name Role Phone Earl Gomez MD Primary Care Provider [phone] Reason for Visit * Reason Onset Date Comments MEDICAL EQUIPMENT 12/11/2024 Encounter Details Date Type Department Care Team (Late st Contact Info) Description 12/11/2024 Telephone [facility] 210 [facility] [place] [address] Earl Gomez MD [address] [facility] [place] [address] MEDICAL EQUIPMENT Social History Tobacco Use Types Packs/Day Years [...] Telephone Encounter - Sadaf Godinez MA - 12/11/2024 3:33 PM EST Was faxed to Lisa * Telephone Encounter - Earl Gomez MD - 12/11/2024 1:42 PM EST Hand written * Telephone Encounter - Rylan Corona RegSched Rep - 12/11/2024 12:20 PM EST Caller: SHAKILA COX Relationship: Shalonda Harmon call back number: [phone] Equipment requested: BEDSIDE COMMODE Reason for the request: TROUBLE WALKING TO BATHROOM Prescribing Provider: DR. GOMEZ Additional information or concerns: THEY WOULD LIKE TO KNOW IF AN ORDER FOR THIS CAN BE SENT TO [facility] MEDICAL EQUIPMENT documented in this encounter Plan of Treatment Upcoming Encounters Date Type Department Care Team (Late st Contact Info) Description 02/26/2025 3:15 PM EST Office Visit [facility] 210 [facility] [phone] Earl Gomez MD [address] [place] [address] documented as of this encounter Visit Diagnoses Not on filedocumented in this encounter Additional Health Concerns Assessment Noted Time PHQ-2 Depression Total Score: 2 07/14/19 24 4:30 PM EDT documented as of this encounter Care Teams Bridge Inspector Relationship Specialty Start Date End Date Earl Gomez MD [address] [place] [address] PCP - General Family Medicine 01/23/20 documented as of this encounter
--- OUTSIDE RECORDS SUMMARY | 2025-01-08 17:01 | XMS_ITS | Encounter Summary ---
[facility] Address [address] [place] [address] Care Team Providers Care Middleware Architect Name Role Phone Earl Dumont MD Primary Care Provider [phone] Reason for Referral * MRI/CAT/PET Scan (Routine) - Closed Specialty Diagnoses / Procedures Referred By Contac t Referred To Contact Radiology Diagnoses Lung nodule Procedures CT Chest Without Contrast Earl Dumont MD [address] [place] [address] Phone: tel: fax: [facility] [address] [place] [address] Phone: tel: Referral ID Status Reason Start Date Expiration Date Visits Re quested Visits Authorized [id number] Closed 09/27/2024 12/27/2025 1 1 Encounter Details Date Type Department Care Team (Late st Contact Info) Description 09/27/2024 Results Follow-Up [facility] [address] [place] [address] Earl Dumont MD [address] [place] [address] Social History Tobacco Use Types [...] [facility] [address] [place] [phone] Earl Dumont MD [address] [place] [address] Scheduled Orders Name Type Priority [...] documented as of this encounter Care Teams Middleware Architect Relationship Specialty Start Date End Date Earl Dumont MD [address] [place] [address] PCP - General Family Medicine 01/23/20 documented as of this encounter
--- OUTSIDE RECORDS SUMMARY | 2025-01-08 17:01 | XMS_ITS | Encounter Summary ---
[facility] Address [address] [place] [address] Care Team Providers Care Director Of Head Start Name Role Phone Earl Dumont MD Primary Care Provider [phone] Reason for Visit * Reason Onset Date Comments Med Refill 12/14/2024 Encounter Details Date Type Department Care Team (Late st Contact Info) Description 12/14/2024 Refill [facility] [address] [place] [address] Earl Dumont MD [address] [place] [address] Right leg pain; Pain of right lower extremity Social History Tobacco Use Types Packs/Day Years [...] encounter Miscellaneous Notes * Telephone Encounter - Marissa Finch RegSched Rep - 12/14/2024 10:08 AM EST Caller: ANDREZ COX Relationship: Grandchild Best call back number: [phone] Requested Prescriptions: Requested Prescriptions Pending Prescriptions Disp Refills traMADol (ULTRAM) 50 MG tablet 60 tablet 0 Si PO BID PRN leg pain Pharmacy where request should be sent: [facility] - [place] [address] [address] [address] - [phone] - [phone] FX Last office visit with prescribing clinician: 12/08/2024 Last telemedicine visit with prescribing clinician: Visit date not found Next office visit with prescribing clinician: 02/19/2025 Additional details provided by patient: THE CALLER STATES THAT THE PATIENT IS OUT OF MEDICATION Does the patient have less than a 3 day supply: [x] Yes [] No Would you like a call back once the refill request has been completed: [] Yes [x] No If the office needs to give you a call back, can they leave a voicemail: [] Yes [x] No Farhad Carrera Rep 12/14/24 10:09 EST documented in this encounter Plan of Treatment Upcoming Encounters Date Type Department Care Team (Late st Contact Info) Description 02/26/2025 3:15 PM EST Office Visit [facility] [address] [place] [address] Earl Dumont MD [address] [place] [address] documented as of this encounter Visit Diagnoses Diagnosis Right leg pain Pain in soft tissues of limb Pain of right lower extremity documented in this encounter Additional Health Concerns Assessment Noted Time PHQ-2 Depression Total Score: 2 07/14/19 24 4:30 PM EDT documented as of this encounter Care Teams Director Of Head Start Relationship Specialty Start Date End Date Earl Dumont MD [address] [place] [address] PCP - General Family Medicine 01/23/20 documented as of this encounter
--- OUTSIDE RECORDS SUMMARY | 2025-01-08 17:01 | XMS_ITS | Encounter Summary ---
[facility] Address [address] [place] [address] Care Team Providers Care Manager Project Management Name Role Phone Earl Dumont MD Primary Care Provider [phone] Reason for Visit * Reason Comments Med Refill Encounter Details Date Type Department Care Team (Late st Contact Info) Description 11/14/2024 Refill [facility] 210 [facility] [place] [address] Earl Dumont MD [address] [facility] [place] [address] Generalized anxiety disorder Social History [...] Description 02/26/2025 3:15 PM EST Office Visit [facility] [address] [place] [address] Earl Dumont MD [address] [place] [address] documented as of this encounter Visit Diagnoses Diagnosis Generalized anxiety disorder documented in this encounter Additional Health Concerns Assessment Noted Time PHQ-2 Depression Total Score: 2 07/14/19 24 4:30 PM EDT documented as of this encounter Care Teams Manager Project Management Relationship Specialty Start Date End Date Earl Dumont MD [address] [place] [address] PCP - General Family Medicine 01/23/20 documented as of this encounter
--- OUTSIDE RECORDS SUMMARY | 2025-01-08 17:01 | XMS_ITS | Encounter Summary ---
[facility] Address [address] [place] [address] Care Team Providers Care Prefitter Doors Name Role Phone Earl Dumont MD Primary Care Provider [phone] Reason for Visit * Reason Onset Date Comments Med Refill 12/25/2024 Encounter Details Date Type Department Care Team (Late st Contact Info) Description 12/25/2024 Telephone [facility] 210 [facility] [place] [address] Earl Dumont MD [address] [facility] [place] [address] Med Refill Social History Tobacco [...] Telephone Encounter - Jessie You MA - 12/26/2024 12:46 PM EST HUB RELAY: Will send in [email or web address]. Is she taking this now instead of her wixela? Lvm * Telephone Encounter - Earl Dumont MD - 12/25/2024 6:48 PM EST Will send in trelegy. Is she taking this now instead of her wixela? * Telephone Encounter - Sharmaine Horne RegSched Rep - 12/25/2024 12:02 PM EST Caller: SHAKILA COX Relationship: Best call back number: [phone] Requested Prescriptions: TRELEGY (NOT SEEN ON ACTIVE MED LIST) Pharmacy where request should be sent: [facility] - [place] [address] [facility] [address] [address] [address] - [phone] - [phone] FX Last office visit with prescribing clinician: 12/08/2024 Last telemedicine visit with prescribing clinician: Visit date not found Next office visit with prescribing clinician: 02/19/2025 Does the patient have less than a 3 day supply: [x] Yes [] No Farhad Alan 12/25/24 12:04 EST documented in this encounter Plan of Treatment Upcoming Encounters Date Type Department Care Team (Late st Contact Info) Description 02/26/2025 3:15 PM EST Office Visit [facility] [address] [facility] [place] [phone] Earl Dumont MD [address] [place] [address] documented as of this encounter Visit Diagnoses Diagnosis Panlobular emphysema- Primary Other emphysema documented in this encounter Additional Health Concerns Assessment Noted Time PHQ-2 Depression Total Score: 2 07/14/19 24 4:30 PM EDT documented as of this encounter Care Teams Prefitter Doors Relationship Specialty Start Date End Date Earl Dumont MD [address] [place] [address] PCP - General Family Medicine 01/23/20 documented as of this encounter
[2025-01-08 17:28] LABS: Bilirubin,Urine Negative (Negative); Color,Urine YELLOW (Yellow); Glucose,Urine (UA) TRACE (Negative); Ketones,Urine Negative (Negative); Leukocyte Esterase,Urine TRACE (Negative); PH,Urine 6.0 (5.0-8.5); Protein,Urine Negative (Negative); Specific Gravity, Urine 1.010 (1.005-1.030); Urobilinogen,Urine 0.2 EU/dl (0.2)
[2025-01-08 18:46] LABS: Bacteria,Urine 4+ /lpf; Squamous Epithelial Cell,Urine Occasional #/hpf (0-5)
== END 2025-01-08 23:59 | disposition home or self-care (01) ==
LOC: LAB.DROPOF 16:57
PROVIDERS: Visit Provider Urology
DX: N20.0 Calculus of kidney (principal)
CPT/HCPCS: 81001; 87086; 87088

== ENCOUNTER 2025-01-30 14:02 | Outpatient (CLI) | payer MEDICARE, SELFPAY ==
--- OUTSIDE RECORDS SUMMARY | 2024-12-08 13:00 | XMS_ITS | Encounter Summary ---
[facility] Address [address] [place] [address] Care Team Providers Care Prune Washer Name Role Phone Earl Dumont MD Primary Care Provider [phone] Reason for Referral * Home Health (Routine) - Authorized Specialty Diagnoses / Procedures Referred By Contac t Referred To Contact Home Health Services Diagnoses Recurrent falls Chronic obstructive pulmonary disease with (acute) lower respiratory infection Coccygodynia Right leg pain Chronic heart failure with preserved ejection fraction Diastolic dysfunction with chronic heart failure Procedures ME OFFICE/OUTPATIENT NEW MODERATE MDM 45 MINUTES Earl Dumont MD [address] [place] [address] Phone: tel: fax: [facility] [place] [address] [place] [address] Phone: tel: fax: Referral ID Status Reason Start Date Expiration Date Visits Requested Visits Authorized [id number] Authorized Specialty Services Required 03/09/2026 999 999 Reason for Visit * Reason Comments Back Injury F/u ER Closed lumbar vertebral fracture Encounter Details Date Type Department Care Team (Late st Contact Info) Description 12/08/2024 2:00 PM EDT Office Visit [facility] [address] [facility] [place] [address] Earl Dumont MD [address] [place] [address] Recurrent falls (Primary Dx); Chronic obstructive pulmonary disease with (acute) lower respiratory infection; Coccygodynia; Right leg pain; Chronic heart failure with preserved ejection fraction; Diastolic dysfunction with chronic heart failure Social History Tobacco Use Types Packs/Day Years [...] Sign Reading Time Taken Comments Blood Pressure 132/82 12/08/2024 2:15 PM EDT Pulse 64 12/08/2024 2:15 PM EDT Temperature - - Respiratory Rate 20 12/08/2024 2:15 PM EDT Oxygen Saturation 94% 12/08/2024 2:15 PM EDT Inhaled Oxygen Concentration - - Weight 105 kg (232 lb) 12/08/2024 2:15 PM EDT Height 160 cm (5' 2.99 ) 12/08/2024 2:15 PM EDT Body Mass Index 41.11 12/08/2024 2:15 PM EDT documented in this encounter Progress Notes * Earl Dumont MD - 12/08/2024 2:00 PM EDT Subjective Patito Garcia is a 79 y.o. female. History of Present Illness She fell again recently Was getting into her power chair and was hard to get her up No LOC Her lower back has been hurting She had CT of lumbar spine, this has multilevel degenerative changes thoruhg out the spine She is just VERY unsteady when she moves around at home The following portions of the patient's history [...] Breath sounds: Normal breath sounds. Musculoskeletal: Comments: Sitting in wheelchair Neurological: Mental Status: She is alert and oriented to person, place, and time. Psychiatric: Mood and Affect: Mood normal. Behavior: Behavior normal. Thought Content: Thought content normal. Judgment: Judgment normal. Assessment & Plan Diagnoses and all orders for this visit: 1. Recurrent falls (Primary) - Ambulatory Referral to Home Health 2. Chronic obstructive pulmonary disease with (acute) lower respiratory infection - Ambulatory Referral to Home Health 3. Coccygodynia - Ambulatory Referral to Home Health 4. Right leg pain - Ambulatory Referral to Home Health 5. Chronic heart failure with preserved ejection fraction - Ambulatory Referral to Home Health 6. Diastolic dysfunction with chronic heart failure - Ambulatory Referral to Home Health Slow deconditioing that has continued to worsen the past year or more. Will work on home health forPT and OT to try to help increase strength. She struggles to move out and into her chair, bed, etc.This has led to multiple falls No change in chronic med I did refill her pain medicine this AM. Handicapped permit given today for 6 year christiano documented in this encounter Plan of Treatment Upcoming Encounters Date Type Department Care Team (Late st Contact Info) Description 02/26/2025 3:15 PM EST Office Visit [facility] [address] [facility] [id number] Earl Dumont MD [address] [place] [address] documented as of this encounter Visit Diagnoses Diagnosis Recurrent falls- Primary Chronic obstructive pulmonary disease with (acute) lower respiratory infection Coccygodynia Other disorder of coccyx Right leg pain Pain in soft tissues of limb Chronic heart failure with preserved ejection fraction Diastolic dysfunction with chronic heart failure documented in this encounter Additional Health Concerns Assessment Noted Time PHQ-2 Depression Total Score: 2 07/14/19 24 4:30 PM EDT documented as of this encounter Care Teams Prune Washer Relationship Specialty Start Date End Date Earl Dumont MD [address] [place] [address] PCP - General Family Medicine 01/23/20 documented as of this encounter
--- OUTSIDE RECORDS SUMMARY | 2024-12-14 19:00 | XMS_ITS | Clinical Summary ---
Author Organization Unknown Care Team Providers Care Compounding And Finishing Supervisor Name Role Phone PATRICIA ZAPATA, URI Unavailable Unavailable RADHA PT, LAURITA Unavailable Unavailable EITAN HALL, JAYDA Unavailable Unavailable SUKHI SW, SARA Unavailable Unavailable LU MARTIN, LAYO Unavailable Unavailable TRENT OT, CHAPITO Unavailable Unavailable Payers Payer Name Policy Type Policy Number Effective Date Expira tion Date ESTHER [id number] Problems Condition Name Condition Details Condition Category Status Onset Date Resolution Date Last Treatment Date Treating Clinician Comments CHRONIC OBSTRUCTIVE PULMONARY DISEASE, UNSPECIFIED Active 09-04 00:00: 00 PAIN IN RIGHT LEG Active 09-04 00:00: 00 PANLOBULAR EMPHYSEMA Active 09-04 00:00: 00 HYPERTENSIVE HEART DISEASE WITH HEART FAILURE Active 09-04 00:00: 00 CHRONIC DIASTOLIC (CONGESTIVE) HEART FAILURE Active 09-04 00:00: 00 DEM IN OTHER DIS CLASSD ELSWHR, UNSP SEV, WITH MOOD DISTRB Active 09-04 00:00: 00 HYPOTHYROIDI SM, UNSPECIFIED Active 09-04 00:00: 00 DEM IN OTHER DIS CLASSD ELSWHR, UNSP SEVERITY, WITH ANXIETY Active 09-04 00:00: 00 ATHSCL HEART DISEASE OF [place] CORONARY ARTERY W/O ANG PCTRS Active 09-04 00:00: 00 AGE-RELATED OSTEOPOROSIS W/O CURRENT PATHOLOGICAL FRACTURE Active 09-04 00:00: 00 MAJOR DEPRESSIVE DISORDER, RECURRENT, IN FULL REMISSION Active 09-04 00:00: 00 HISTORY OF FALLING Active 09-04 00:00: 00 PERSONAL HISTORY OF PULMONARY EMBOLISM Active 09-04 00:00: 00 [facility] (CURRENT) USE OF ANTITHROMBOT ICS/ANTIPLAT ELETS Active 09-04 00:00: 00 [employer] (CURRENT) USE OF ORAL HYPOGLYCEMIC DRUGS Active 09-04 00:00: 00 [employer] (CURRENT) USE OF ANTICOAGULAN TS Active 09-04 00:00: 00 DEPENDENCE ON SUPPLEMENTAL OXYGEN Active 09-04 00:00: 00 Allergies, Adverse Reactions, Alerts Allergy [...] 04-24 00:00: 00 10-13 23:59 :00 No [id number] HTN 1 tablet DAILY 1 tablet DAILY (route: oral) Med Classific ation: Cardiovas cular Therapy Agents furosemide 40 mg tablet 04-24 00:00: 00 10-13 23:59 :00 No [id number] FLUID 1 tablet DAILY 1 tablet DAILY (route: oral) Med Classific ation: Cardiovas cular Therapy Agents valsartan 80 mg tablet 04-24 00:00: 00 04-29 00:00 :00 No [id number] Per instruc tions Per instructio ns (route: oral) Med Classific ation: Cardiovas cular Therapy Agents hydroxyzine HCl 25 mg tablet 04-17 00:00: 00 10-13 23:59 :00 No [id number] ANXIETY 1 tablet 2 TIMES DAILY 1 tablet 2 TIMES DAILY (route: oral) Med Classific ation: Central Nervous System Agents alendronate 70 mg tablet 04-14 00:00: 00 10-13 23:59 :00 No [id number] OSTEOPOROSI S 1 tablet WEEKLY 1 tablet WEEKLY (route: oral) Med Classific ation: Endocrine Trelegy Ellipta 200 mcg-62.5 mcg-25 mcg powder for inhalation 3 00:00: 00 10-13 23:59 :00 No [id number] BREATHING 1 inhalat ion DAILY 1 inhalation DAILY (route: inhalation ) Med Classific ation: Respirato ry Therapy Agents duloxetine 60 mg capsule,del ayed release 04-11 00:00: 00 10-13 23:59 :00 No [id number] DEPRESSION 1 capsule DAILY 1 capsule DAILY (route: oral) Med Classific ation: Central Nervous System Agents furosemide 20 mg tablet - 00:00: 00 04-29 00:00 :00 No [id number] Per instruc tions Per instructio ns (route: oral) Med Classific ation: Cardiovas cular Therapy Agents donepezil 10 mg tablet - 00:00: 00 10-13 23:59 :00 No [id number] MEMORY 1 tablet DAILY 1 tablet DAILY (route: oral) Med Classific ation: Cognitive Disorder Therapy levothyroxi ne 125 mcg tablet - 00:00: 00 10-13 23:59 :00 No [id number] THYROID 1 tablet DAILY 1 tablet DAILY (route: oral) Med Classific ation: Endocrine losartan 50 mg-hydrochl orothiazide 12.5 mg tablet - 00:00: 00 10-13 23:59 :00 No [id number] HTN 1 tablet DAILY 1 tablet DAILY (route: oral) Med Classific ation: Cardiovas cular Therapy Agents omeprazole 40 mg capsule,del ayed release - 00:00: 00 10-13 23:59 :00 No [id number] GERD 1 capsule DAILY 1 capsule DAILY (route: oral) Med Classific ation: Gastroint estinal Therapy Agents amlodipine 5 mg tablet -20 00:00: 00 10-13 23:59 :00 No [id number] HTN 1 tablet DAILY 1 tablet DAILY (route: oral) Med Classific ation: Cardiovas cular Therapy Agents atenolol 50 mg tablet 2-20 00:00: 00 04-29 00:00 :00 No [id number] Per instruc tions Per instructio ns (route: oral) Med Classific ation: Cardiovas cular Therapy Agents buspirone 30 mg tablet 2-20 00:00: 00 10-13 23:59 :00 No [id number] DEPRESSION 1 tablet 3 TIMES DAILY 1 tablet 3 TIMES DAILY (route: oral) Med Classific ation: Central Nervous System Agents pravastatin 20 mg tablet 2-20 00:00: 00 10-13 23:59 :00 No [id number] CHOLESTEROL 1 tablet DAILY 1 tablet DAILY (route: oral) Med Classific ation: Cardiovas cular Therapy Agents Breo Ellipta 100 mcg-25 mcg/dose powder for inhalation - 00:00: 00 10-13 23:59 :00 No [id number] BREATHING 1 inhalat ion DAILY 1 inhalation DAILY (route: inhalation ) Med Classific ation: Respirato ry Therapy Agents trazodone 100 mg tablet - 00:00: 00 10-13 23:59 :00 No [id number] SLEEP 1 tablet DAILY 1 tablet DAILY (route: oral) Med Classific ation: Central Nervous System Agents Entresto 24 mg-26 mg tablet 5-21 00:00: 00 10-13 23:59 :00 No [id number] CHF 1 tablet 2 TIMES DAILY 1 tablet 2 TIMES DAILY (route: oral) Med Classific ation: Cardiovas cular Therapy Agents doxycycline hyclate 100 mg capsule 10-14 00:00: 00 02-21 00:00 :00 No [id number] ANTIBIOTIC 1 capsule 2 TIMES DAILY 1 capsule 2 TIMES DAILY (route: oral) Med Classific ation: Anti-Infe ctive Agents ipratropium 0.5 mg-albutero l 3 mg (2.5 mg base)/3 mL nebulizatio n soln 10-14 00:00: 00 02-21 00:00 :00 No [id number] BREATHING 3 mL 3 TIMES DAILY 3 mL 3 TIMES DAILY (route: inhalation ) Med Classific ation: Respirato ry Therapy Agents levofloxaci n 750 mg tablet 10-14 00:00: 00 02-21 00:00 :00 No [id number] ANTIBIOTIC 1 tablet DAILY 1 tablet DAILY (route: oral) Med Classific ation: Anti-Infe ctive Agents oxycodone 5 mg tablet 10-14 00:00: 00 02-21 00:00 :00 No [id number] PAIN 1 tablet EVERY 8 HOURS 1 tablet EVERY 8 HOURS (route: oral) Med Classific ation: Analgesic , Anti-infl ammatory or Antipyret ic trazodone 150 mg tablet 10-05 00:00: 00 05-17 00:00 :00 No [id number] DEPRESSION AND SLEEP 1 tablet BEDTIME 1 tablet BEDTIME (route: oral) Med Classific ation: Central Nervous System Agents albuterol sulfate 2.5 mg/3 mL (0.083 %) solution for nebulizatio n 10-03 00:00: 00 05-17 00:00 :00 No [id number] SHORTNESS OF BREATH 2.5 mg EVERY 4 HOURS 2.5 mg EVERY 4 HOURS (route: inhalation ) Med Classific ation: Respirato ry Therapy Agents clotrimazol e 1 % topical cream 10-03 00:00: 00 10-24 00:00 :00 No [id number] Unavailable Per instruc tions EVERY 12 HOURS DIRECTED Per instructio ns EVERY 12 HOURS DIRECTED (route: topical) Med Classific ation: Dermatolo gical hydroxyzine HCl 50 mg tablet 10-03 00:00: 00 10-24 00:00 :00 No [id number] Unavailable Per instruc tions EVERY 6 HOURS NEEDED Per instructio ns EVERY 6 HOURS NEEDED (route: oral) Med Classific ation: Central Nervous System Agents ondansetron 8 mg disintegrat ing tablet 10-03 00:00: 00 10-24 00:00 :00 No [id number] Unavailable Per instruc tions EVERY 8 HOURS NEEDED Per instructio ns EVERY 8 HOURS NEEDED (route: oral) Med Classific ation: Gastroint estinal Therapy Agents sulfamethox azole 800 mg-trimetho prim 160 mg tablet 10-03 00:00: 00 10-24 00:00 :00 No [id number] Unavailable Per instruc tions TWICE DAILY FOR 10 DAYS Per instructio ns TWICE DAILY FOR 10 DAYS (route: oral) Med Classific ation: Anti-Infe ctive Agents albuterol sulfate HFA 90 mcg/actuati on aerosol inhaler 09-27 00:00: 00 Yes [id number] BREATHING 2 puff EVERY 4 HOURS 2 puff EVERY 4 HOURS (route: inhalation ) Med Classific ation: Respirato ry Therapy Agents memantine 5 mg tablet 09-26 00:00: 00 Yes [id number] DEMENTIA 1 tablet 2 TIMES DAILY 1 tablet 2 TIMES DAILY (route: oral) Med Classific ation: Cognitive Disorder Therapy amlodipine 5 mg tablet 09-21 00:00: 00 05-17 00:00 :00 No [id number] BLOOD PRESSURE 1 tablet DAILY 1 tablet DAILY (route: oral) Med Classific ation: Cardiovas cular Therapy Agents levothyroxi ne 125 mcg tablet 09-21 00:00: 00 Yes [id number] THYROID 1 tablet DAILY 1 tablet DAILY (route: oral) Med Classific ation: Endocrine duloxetine 60 mg capsule,del ayed release 09-19 00:00: 00 Yes [id number] DEPRESSION ANXIETY 1 capsule DAILY 1 capsule DAILY (route: oral) Med Classific ation: Central Nervous System Agents famotidine 40 mg tablet 09-19 00:00: 00 05-17 00:00 :00 No [id number] GERD 1 tablet DAILY 1 tablet DAILY (route: oral) Med Classific ation: Gastroint estinal Therapy Agents hydroxyzine HCl 25 mg tablet 09-19 00:00: 00 09-04 00:00 :00 No [id number] ANXIETY Per instruc tions EVERY 6 HOURS Per instructio ns EVERY 6 HOURS (route: oral) Med Classific ation: Central Nervous System Agents atenolol 25 mg tablet 10-25 00:00: 00 05-17 00:00 :00 No [id number] BLOOD PRESSURE 1 tablet DAILY 1 tablet DAILY (route: oral) Med Classific ation: Cardiovas cular Therapy Agents donepezil 10 mg tablet 10-25 00:00: 00 Yes [id number] DEMENTIA 1 tablet BEDTIME 1 tablet BEDTIME (route: oral) Med Classific ation: Cognitive Disorder Therapy Eliquis 5 mg tablet 10-25 00:00: 00 Yes [id number] BLOOD THINNER 1 tablet 2 TIMES DAILY 1 tablet 2 TIMES DAILY (route: oral) Med Classific ation: Hematolog ical Agents Entresto 49 mg-51 mg tablet 10-25 00:00: 00 05-17 00:00 :00 No [id number] HEART FAILURE 1 tablet 2 TIMES DAILY 1 tablet 2 TIMES DAILY (route: oral) Med Classific ation: Cardiovas cular Therapy Agents pravastatin 20 mg tablet 10-25 00:00: 00 02-21 00:00 :00 No [id number] CHOLESTEROL 1 tablet BEDTIME 1 tablet BEDTIME (route: oral) Med Classific ation: Cardiovas cular Therapy Agents alendronate 70 mg tablet 02-14 00:00: 00 09-04 00:00 :00 No [id number] OSTEOPOROSI S 1 tablet WEEKLY 1 tablet WEEKLY (route: oral) Med Classific ation: Endocrine atorvastati n 40 mg tablet 02-14 00:00: 00 Yes [id number] CHOLESTEROL 1 tablet BEDTIME 1 tablet BEDTIME (route: oral) Med Classific ation: Cardiovas cular Therapy Agents Breyna 160 mcg-4.5 mcg/actuati on HFA aerosol inhaler 02-14 00:00: 00 05-17 00:00 :00 No [id number] COPD 2 puff 2 TIMES DAILY 2 puff 2 TIMES DAILY (route: inhalation ) Med Classific ation: Respirato ry Therapy Agents buspirone 30 mg tablet 02-14 00:00: 00 Yes [id number] MOOD 1 tablet 2 TIMES DAILY 1 tablet 2 TIMES DAILY (route: oral) Med Classific ation: Central Nervous System Agents guaifenesin ER 600 mg tablet, extended release 12 hr 02-14 00:00: 00 09-04 00:00 :00 No [id number] COUGH 2 tablet 2 TIMES DAILY 2 tablet 2 TIMES DAILY (route: oral) Med Classific ation: Respirato ry Therapy Agents prednisone 20 mg tablet 02-14 00:00: 05-17 00:00 :00 No [id number] COPD 2 tablet 2 TIMES DAILY 2 tablet 2 TIMES DAILY (route: oral) Med Classific ation: Endocrine Trelegy Ellipta 100 mcg-62.5 mcg-25 mcg powder for inhalation 02-14 00:00: 00 09-04 00:00 :00 No [id number] COPD 1 inhalat ion DAILY 1 inhalation DAILY (route: inhalation ) Med Classific ation: Respirato ry Therapy Agents acetazolami de 250 mg tablet 05-17 00:00: 00 09-04 00:00 :00 No [id number] SHORTNESS OF BREATH 1 tablet 2 TIMES DAILY 1 tablet 2 TIMES DAILY (route: oral) Med Classific ation: Cardiovas cular Therapy Agents bumetanide 2 mg tablet 05-17 00:00: 00 09-04 00:00 :00 No [id number] EDEMA 1 tablet 2 TIMES DAILY 1 tablet 2 TIMES DAILY (route: oral) Med Classific ation: Cardiovas cular Therapy Agents diltiazem 120 mg tablet 05-17 00:00: 00 09-04 00:00 :00 No [id number] ANGINA 1 tablet DAILY 1 tablet DAILY (route: oral) Med Classific ation: Cardiovas cular Therapy Agents levofloxaci n 750 mg tablet 05-17 00:00: 05-23 23:59 :00 No [id number] ANTIBIOTIC 1 tablet DAILY 1 tablet DAILY (route: oral) Med Classific ation: Anti-Infe ctive Agents metoprolol tartrate 25 mg tablet 05-17 00:00: 00 09-04 00:00 :00 No [id number] BLOOD PRESSURE 1 tablet 2 TIMES DAILY 1 tablet 2 TIMES DAILY (route: oral) Med Classific ation: Cardiovas cular Therapy Agents Stool Softener 100 mg capsule 08-01 00:00: 00 09-04 00:00 :00 No [id number] CONSTIPATIO N 100 mg 2 TIMES DAILY 100 mg 2 TIMES DAILY (route: oral) Med Classific ation: Gastroint estinal Therapy Agents valsartan 40 mg tablet 08-01 00:00: 00 09-04 00:00 :00 No [id number] BP 40 mg 2 TIMES DAILY 40 mg 2 TIMES DAILY (route: oral) Med Classific ation: Cardiovas cular Therapy Agents acetaminoph en 500 mg tablet 09-04 00:00: 00 Yes [id number] PAIN 1 tablet EVERY 4 HOURS 1 tablet EVERY 4 HOURS (route: oral) Med Classific ation: Analgesic , Anti-infl ammatory or Antipyret ic amiodarone 200 mg tablet 09-04 00:00: 00 Yes [id number] HEART 2 tablet 2 TIMES DAILY 2 tablet 2 TIMES DAILY (route: oral) Med Classific ation: Cardiovas cular Therapy Agents clopidogrel 75 mg tablet 09-04 00:00: 00 Yes [id number] HEART 1 tablet DAILY 1 tablet DAILY (route: oral) Med Classific ation: Hematolog ical Agents dapaglifloz in propanediol 10 mg tablet 09-04 00:00: 00 Yes [id number] T2DM 1 tablet 2 TIMES DAILY 1 tablet 2 TIMES DAILY (route: oral) Med Classific ation: Endocrine docusate sodium 100 mg capsule 09-04 00:00: 00 Yes [id number] CONSTIPATIO N 1 capsule 2 TIMES DAILY 1 capsule 2 TIMES DAILY (route: oral) Med Classific ation: Gastroint estinal Therapy Agents furosemide 20 mg tablet 09-04 00:00: 00 Yes [id number] EDEMA 1 tablet 2 TIMES DAILY 1 tablet 2 TIMES DAILY (route: oral) Med Classific ation: Cardiovas cular Therapy Agents hydroxyzine HCl 50 mg tablet 09-04 00:00: 00 Yes [id number] ANXIETY 1 tablet EVERY 6 HOURS 1 tablet EVERY 6 HOURS (route: oral) Med Classific ation: Central Nervous System Agents irbesartan 75 mg tablet 09-04 00:00: 00 Yes [id number] BLOOD PRESSURE 0.5 tablet BEDTIME 0.5 tablet BEDTIME (route: oral) Med Classific ation: Cardiovas cular Therapy Agents trazodone 50 mg tablet 09-04 00:00: 00 Yes [id number] DEPRESSION 1 tablet BEDTIME 1 tablet BEDTIME (route: oral) Med Classific ation: Central Nervous System Agents Vital Signs Vital Name Observation Time Observation Value Commen ts Temperature 2024-12-15 12:26:00.000 98 [degF] Pulse 2024-12-15 12:26:00.000 62 /min Pulse 2024-11-30 15:22:00.000 60 /min O2 Saturation (%) 2024-11-30 15:22:00.000 97 % Respirations 2024-12-15 12:26:00.000 16 /min Respirations 2024-11-30 15:22:00.000 18 /min Systolic Blood Pressure 2024-12-15 12:26:00.000 122 mm [Hg] Systolic Blood Pressure 2024-11-30 15:22:00.000 116 mm [Hg] Diastolic Blood Pressure 2024-12-15 12:26:00.000 64 mm [Hg] Diastolic Blood Pressure 2024-11-30 15:22:00.000 62 mm [Hg] Plan of Treatment Planned Activity Planned Date Details Comments Future Scheduled Test AGENCY MAY PERFORM A RESUMPTION OF CARE VISIT FOLLOWING ANY HOSPITAL ADMISSION. PT TO EVALUATE, OBSERVE / ASSESS, AND MONITOR, SHAFTING WORKER TO OBSERVE AND MONITOR, PROVIDE SKILLED THERAPEUTIC INTERVENTION, ACTIVITY, EDUCATION, AND TRAINING TO ADDRESS; [code = AGENCY MAY PERFORM A RESUMPTION OF CARE VISIT FOLLOWING ANY HOSPITAL ADMISSION. PT TO EVALUATE, OBSERVE / ASSESS, AND MONITOR, SHAFTING WORKER TO OBSERVE AND MONITOR, PROVIDE SKILLED THERAPEUTIC INTERVENTION, ACTIVITY, EDUCATION, AND TRAINING TO ADDRESS;] Future Scheduled Test SIT TO/FRO M STAND TRANSFERS (PT/SHAFTING WORKER) [code = SIT TO/FROM STAND TRANSFERS (PT/SHAFTING WORKER)] Future Scheduled Test PT/SHAFTING WORKER TO PROVIDE GAIT TRAINING FOR IMPROVED MOBILITY AND /OR TO NORMALIZE GAIT PATTERN [code = PT/SHAFTING WORKER TO PROVIDE GAIT TRAINING FOR IMPROVED MOBILITY AND /OR TO NORMALIZE GAIT PATTERN] Future Scheduled Test NEUROMUSCU LAR RE-EDUCATION / BALANCE / POSTURAL CONTROL (PT) [code = NEUROMUSCULAR RE-EDUCATION / BALANCE / POSTURAL CONTROL (PT)] Future Scheduled Test THERAPEUTI C EXERCISES AND ESTABLISHING A HOME EXERCISE PROGRAM (PT/SHAFTING WORKER) [code = THERAPEUTIC EXERCISES AND ESTABLISHING A HOME EXERCISE PROGRAM (PT/SHAFTING WORKER)] Future Scheduled Test AGENCY MAY PERFORM A RESUMPTION OF CARE VISIT FOLLOWING ANY HOSPITAL ADMISSION. OT TO EVALUATE, OBSERVE / ASSESS, AND MONITOR, EMILIANO TO OBSERVE AND MONITOR, PROVIDE SKILLED THERAPEUTIC INTERVENTION, ACTIVITY, EDUCATION, AND TRAINING TO ADDRESS; IMPROVED FUNCTIONAL TRANSFERS, SELF CARE PERFORMANCE BATHING/SHOWERING (OT/COCONUT COOKER) ACTIVITIES OF DAILY LIVING (OT/COCONUT COOKER) TOILET TRANSFER (OT/EMILIANO) BATH/SHOWER TRANSFER (OT/COCONUT COOKER) OT/EMILIANO TO MONITOR AND EDUCATE ON OXYGEN SATURATION DURING ADLS/IADLS, NOTIFY PHYSICIAN AND/OR THE RN CLINICAL CASEY SAW OPERATOR FOR PHYSICIAN NOTIFICATION AND IF O2 SATS BELOW 90% AFTER 10 MIN OF REST. OT/EMILIANO MAY EDUCATE ON PAIN MANAGEMENT CLINICALLY INDICATED, INCLUDING NON-PHARMACOLOGICAL PAIN REDUCTION TECHNIQUES AND USE OF CRYOTHERAPY OR HEAT UP TO 20 MIN AT A TIME FOR PAIN MANAGEMENT [code = AGENCY MAY PERFORM A RESUMPTION OF CARE VISIT FOLLOWING ANY HOSPITAL ADMISSION. OT TO EVALUATE, OBSERVE / ASSESS, AND MONITOR, COCONUT COOKER TO OBSERVE AND MONITOR, PROVIDE SKILLED THERAPEUTIC INTERVENTION, ACTIVITY, EDUCATION, AND TRAINING TO ADDRESS; IMPROVED FUNCTIONAL TRANSFERS, SELF CARE PERFORMANCE BATHING/SHOWERING (OT/COCONUT COOKER) ACTIVITIES OF DAILY LIVING (OT/EMILIANO) TOILET TRANSFER (OT/COCONUT COOKER) BATH/SHOWER TRANSFER (OT/COCONUT COOKER) OT/COCONUT COOKER TO MONITOR AND EDUCATE ON OXYGEN SATURATION DURING ADLS/IADLS, NOTIFY PHYSICIAN AND/OR THE RN CLINICAL CASEY SAW OPERATOR FOR PHYSICIAN NOTIFICATION AND IF O2 SATS BELOW 90% AFTER 10 MIN OF REST. OT/COCONUT COOKER MAY EDUCATE ON PAIN MANAGEMENT CLINICALLY INDICATED, INCLUDING NON-PHARMACOLOGICAL PAIN REDUCTION TECHNIQUES AND USE OF CRYOTHERAPY OR HEAT UP TO 20 MIN AT A TIME FOR PAIN MANAGEMENT] Goal 2024-10-31 Patient Goal - I NDEPENDENCE WITH FUNCTIONAL ACTIVITIES Goal 2024-12-15 Patient Goal - I NDEPENDENCE WITH FUNCTIONAL ACTIVITIES Goal Provider Goal - Goal Provider Goal - PT STG: PATIENT WILL DEMONSTRATE IMPROVED ABILITY TO PERFORM SIT TO/FROM STAND TRANSFERS TO REDUCE THE RISK OF SKIN BREAKDOWN AND REDUCE FALL RISK FROM SBA TO IND WITHIN 4 WEEKS Goal Provider Goal - PT LTG: PATIENT WILL DEMONSTRATE IMPROVED 6 MINUTE WALK TEST AMBULATION FROM 130 FT CGA TO 250 FT IND WITH APPROPRIATE AD WITHIN 8 WEEKS. Goal Provider Goal - PT STG: PATIENT WILL DEMONSTRATE REDUCED FALL RISK EVIDENCED BY TUG TEST (CUT SCORE >11 SECONDS INDICATES INCREASED FALL RISK) IMPROVING FROM 32 SECONDS TO LESS THAN OR EQUAL TO 26 SECONDS WITHIN 4 WEEKS PT LTG: PATIENT WILL DEMONSTRATE REDUCED FALL RISK EVIDENCED BY TUG TEST (CUT SCORE >11 SECONDS INDICATES INCREASED FALL RISK) IMPROVING FROM 32 SECONDS TO LESS THAN OR EQUAL TO 20 SECONDS WITHIN 8 WEEKS Goal Provider Goal - PT LTG: PATIENT WILL DEMONSTRATE IMPROVED FUNCTIONAL STRENGTH EVIDENCED BY FIVE TIMES SIT TO STAND TEST (CUT SCORE >12 SECONDS INDICATES AN INCREASED FALL RISK) IMPROVING FROM 17 SECONDS TO LESS THAN OR EQUAL TO 12 SECONDS WITHIN 8 WEEKS IN ORDER TO DECREASE FALL RISK Goal Provider Goal - OT LTG: PATIENT WILL DEMONSTRATE IMPROVED ABILITY TO PERFORM BATHING/SHOWERING AND REDUCE CAREGIVER BURDEN FROM MINIMAL A TO SBA WITHIN 5 WEEKS OT LTG: PATIENT WILL DEMONSTRATE IMPROVEMENT IN MODIFIED EMERTIA INDEX SCORE FROM 79 TO 90 INDICATING DECREASED DEPENDENCY ON CAREGIVER ASSISTANCE WITH ACTIVITIES OF DAILY LIVING WITHIN 5 WEEKS OT LTG: PATIENT WILL DEMONSTRATE IMPROVED ABILITY TO PERFORM TOILET TRANSFERS , CLOTHING ADJUSTMENT TO REDUCE FALL RISK AND RISK OF INCONTINENCE AND UTI DEVELOPMENT FROM CGA TO INDEPENDENT WITHIN 5 WEEKS OT LTG: PATIENT WILL DEMONSTRATE IMPROVED ABILITY AND SAFETY TO PERFORM TUB TRANSFER FROM MINIMAL A CGA WITHIN 5 WEEKS OT LTG: PATIENT WILL MAINTAIN OXYGEN SATURATION WITHIN PHYSICIAN ORDERED PARAMETERS THROUGHOUT THE EPISODE OF CARE. OT LTG: PATIENT WILL DEMONSTRATE UNDERSTANDING OF PAIN MANAGEMENT TECHNIQUES EVIDENCED BY REDUCED PAIN IN LOWER BACK TO 2/10 DURING SE.F CARE PERFORMANCE Reason for Visit INDEPENDENT WITH USE OF ASSISTIVE DEVICE Encounters Start Date/Time End Date/Time Encounter Type Admission Type Attending Clinicians Care [facility] Care Department Encounter ID Discharge Date Discharge Status Discharge Condition Discharge Reason Percent Goals Met 2024-11-03 00:00:00 2024-12-15 00:00:00 Outpatient RECERTIFIC LAURITA SPAULDING [facility] [id number] 2024-12-15 00:00:00 DISCHARGE TO HOME OR SELF CARE INDEPENDEN T WITH USE OF ASSISTIVE DEVICE HH - NON COMPLIANT WITH PLAN OF TREATMENT 66.67
--- OUTSIDE RECORDS SUMMARY | 2024-12-14 19:00 | XMS_ITS | Clinical Summary ---
Author Organization Unknown Care Team Providers Care Rig Operator Name Role Phone PATRICIA ZAPATA, URI Unavailable Unavailable RADHA PT, LAURITA Unavailable Unavailable EITAN HALL, JAYDA Unavailable Unavailable SUKHI SW, SARA Unavailable Unavailable LU MARTIN, LAYO Unavailable Unavailable TRENT OT, CHAPITO Unavailable Unavailable Payers Payer Name Policy Type Policy Number Effective Date Expira tion Date ESTHER [id number] Problems Condition Name Condition Details Condition Category [...] 09-04 00:00: 00 ATHSCL HEART DISEASE OF [place] CORONARY ARTERY W/O ANG PCTRS Active 09-04 00:00: 00 AGE-RELATED OSTEOPOROSIS W/O CURRENT PATHOLOGICAL FRACTURE Active 09-04 00:00: 00 MAJOR DEPRESSIVE DISORDER, RECURRENT, IN FULL REMISSION Active 09-04 00:00: 00 HISTORY OF FALLING Active 09-04 00:00: 00 PERSONAL HISTORY OF PULMONARY EMBOLISM Active 09-04 00:00: 00 DETENTION (CURRENT) USE OF ANTITHROMBOT ICS/ANTIPLAT ELETS Active 09-04 00:00: 00 ALARM SIGNAL OPERATOR (CURRENT) USE OF ORAL HYPOGLYCEMIC DRUGS Active 09-04 00:00: 00 ALARM SIGNAL OPERATOR (CURRENT) USE OF ANTICOAGULAN TS Active 09-04 [...] 04-24 00:00: 00 10-13 23:59 :00 No [id number] HTN 1 tablet DAILY 1 tablet DAILY (route: oral) Med Classific ation: Cardiovas cular Therapy Agents furosemide 40 mg tablet 04-24 00:00: 00 10-13 23:59 :00 No [id number] FLUID 1 tablet DAILY 1 tablet DAILY (route: oral) Med Classific ation: Cardiovas cular Therapy Agents valsartan 80 mg tablet 04-24 00:00: 00 04-29 00:00 :00 No [id number] Per instruc tions Per instructio ns (route: oral) Med Classific ation: Cardiovas cular Therapy Agents hydroxyzine HCl 25 mg tablet 04-17 00:00: 00 10-13 23:59 :00 No [id number] ANXIETY 1 tablet 2 TIMES DAILY 1 tablet 2 TIMES DAILY (route: oral) Med Classific ation: Central Nervous System Agents alendronate 70 mg tablet 04-14 00:00: 00 10-13 23:59 :00 No [id number] OSTEOPOROSI S 1 tablet WEEKLY 1 tablet WEEKLY (route: oral) Med Classific ation: Endocrine Trelegy Ellipta 200 mcg-62.5 mcg-25 mcg powder for inhalation 3 00:00: 00 10-13 23:59 :00 No [id number] BREATHING 1 inhalat ion DAILY 1 inhalation DAILY (route: inhalation ) Med Classific ation: Respirato ry Therapy Agents duloxetine 60 mg capsule,del ayed release 04-11 00:00: 00 10-13 23:59 :00 No [id number] DEPRESSION 1 capsule DAILY 1 capsule DAILY (route: oral) Med Classific ation: Central Nervous System Agents furosemide 20 mg tablet - 00:00: 00 04-29 00:00 :00 No [id number] Per instruc tions Per instructio ns (route: oral) Med Classific ation: Cardiovas cular Therapy Agents donepezil 10 mg tablet - 00:00: 00 10-13 23:59 :00 No [id number] MEMORY 1 tablet DAILY 1 tablet DAILY (route: oral) Med Classific ation: Cognitive Disorder Therapy levothyroxi ne 125 mcg tablet - 00:00: 00 10-13 23:59 :00 No [id number] THYROID 1 tablet DAILY 1 tablet DAILY (route: oral) Med Classific ation: Endocrine losartan 50 mg-hydrochl orothiazide 12.5 mg tablet - 00:00: 00 10-13 23:59 :00 No [id number] HTN 1 tablet DAILY 1 tablet DAILY (route: oral) Med Classific ation: Cardiovas cular Therapy Agents omeprazole 40 mg capsule,del ayed release - 00:00: 00 10-13 23:59 :00 No [id number] GERD 1 capsule DAILY 1 capsule DAILY (route: oral) Med Classific ation: Gastroint estinal Therapy Agents amlodipine 5 mg tablet -20 00:00: 00 10-13 23:59 :00 No [id number] HTN 1 tablet DAILY 1 tablet DAILY (route: oral) Med Classific ation: Cardiovas cular Therapy Agents atenolol 50 mg tablet 2-20 00:00: 00 04-29 00:00 :00 No [id number] Per instruc tions Per instructio ns (route: oral) Med Classific ation: Cardiovas cular Therapy Agents buspirone 30 mg tablet 2-20 00:00: 00 10-13 23:59 :00 No [id number] DEPRESSION 1 tablet 3 TIMES DAILY 1 tablet 3 TIMES DAILY (route: oral) Med Classific ation: Central Nervous System Agents pravastatin 20 mg tablet 2-20 00:00: 00 10-13 23:59 :00 No [id number] CHOLESTEROL 1 tablet DAILY 1 tablet DAILY (route: oral) Med Classific ation: Cardiovas cular Therapy Agents Breo Ellipta 100 mcg-25 mcg/dose powder for inhalation - 00:00: 00 10-13 23:59 :00 No [id number] BREATHING 1 inhalat ion DAILY 1 inhalation DAILY (route: inhalation ) Med Classific ation: Respirato ry Therapy Agents trazodone 100 mg tablet - 00:00: 00 10-13 23:59 :00 No [id number] SLEEP 1 tablet DAILY 1 tablet DAILY (route: oral) Med Classific ation: Central Nervous System Agents Entresto 24 mg-26 mg tablet 5-21 00:00: 00 10-13 23:59 :00 No [id number] CHF 1 tablet 2 TIMES DAILY 1 tablet 2 TIMES DAILY (route: oral) Med Classific ation: Cardiovas cular Therapy Agents doxycycline hyclate 100 mg capsule 10-14 00:00: 00 02-21 00:00 :00 No [id number] ANTIBIOTIC 1 capsule 2 TIMES DAILY 1 capsule 2 TIMES DAILY (route: oral) Med Classific ation: Anti-Infe ctive Agents ipratropium 0.5 mg-albutero l 3 mg (2.5 mg base)/3 mL nebulizatio n soln 10-14 00:00: 00 02-21 00:00 :00 No [id number] BREATHING 3 mL 3 TIMES DAILY 3 mL 3 TIMES DAILY (route: inhalation ) Med Classific ation: Respirato ry Therapy Agents levofloxaci n 750 mg tablet 10-14 00:00: 00 02-21 00:00 :00 No [id number] ANTIBIOTIC 1 tablet DAILY 1 tablet DAILY (route: oral) Med Classific ation: Anti-Infe ctive Agents oxycodone 5 mg tablet 10-14 00:00: 00 02-21 00:00 :00 No [id number] PAIN 1 tablet EVERY 8 HOURS 1 tablet EVERY 8 HOURS (route: oral) Med Classific ation: Analgesic , Anti-infl ammatory or Antipyret ic trazodone 150 mg tablet 10-05 00:00: 00 05-17 00:00 :00 No [id number] DEPRESSION AND SLEEP 1 tablet BEDTIME 1 tablet BEDTIME (route: oral) Med Classific ation: Central Nervous System Agents albuterol sulfate 2.5 mg/3 mL (0.083 %) solution for nebulizatio n 10-03 00:00: 00 05-17 00:00 :00 No [id number] SHORTNESS OF BREATH 2.5 mg EVERY 4 HOURS 2.5 mg EVERY 4 HOURS (route: inhalation ) Med Classific ation: Respirato ry Therapy Agents clotrimazol e 1 % topical cream 10-03 00:00: 00 10-24 00:00 :00 No [id number] Unavailable Per instruc tions EVERY 12 HOURS DIRECTED Per instructio ns EVERY 12 HOURS DIRECTED (route: topical) Med Classific ation: Dermatolo gical hydroxyzine HCl 50 mg tablet 10-03 00:00: 00 10-24 00:00 :00 No [id number] Unavailable Per instruc tions EVERY 6 HOURS NEEDED Per instructio ns EVERY 6 HOURS NEEDED (route: oral) Med Classific ation: Central Nervous System Agents ondansetron 8 mg disintegrat ing tablet 10-03 00:00: 00 10-24 00:00 :00 No [id number] Unavailable Per instruc tions EVERY 8 HOURS NEEDED Per instructio ns EVERY 8 HOURS NEEDED (route: oral) Med Classific ation: Gastroint estinal Therapy Agents sulfamethox azole 800 mg-trimetho prim 160 mg tablet 10-03 00:00: 00 10-24 00:00 :00 No [id number] Unavailable Per instruc tions TWICE DAILY FOR 10 DAYS Per instructio ns TWICE DAILY FOR 10 DAYS (route: oral) Med Classific ation: Anti-Infe ctive Agents albuterol sulfate HFA 90 mcg/actuati on aerosol inhaler 09-27 00:00: 00 Yes [id number] BREATHING 2 puff EVERY 4 HOURS 2 puff EVERY 4 HOURS (route: inhalation ) Med Classific ation: Respirato ry Therapy Agents memantine 5 mg tablet 09-26 00:00: 00 Yes [id number] DEMENTIA 1 tablet 2 TIMES DAILY 1 tablet 2 TIMES DAILY (route: oral) Med Classific ation: Cognitive Disorder Therapy amlodipine 5 mg tablet 09-21 00:00: 00 05-17 00:00 :00 No [id number] BLOOD PRESSURE 1 tablet DAILY 1 tablet DAILY (route: oral) Med Classific ation: Cardiovas cular Therapy Agents levothyroxi ne 125 mcg tablet 09-21 00:00: 00 Yes [id number] THYROID 1 tablet DAILY 1 tablet DAILY (route: oral) Med Classific ation: Endocrine duloxetine 60 mg capsule,del ayed release 09-19 00:00: 00 Yes [id number] DEPRESSION ANXIETY 1 capsule DAILY 1 capsule DAILY (route: oral) Med Classific ation: Central Nervous System Agents famotidine 40 mg tablet 09-19 00:00: 00 05-17 00:00 :00 No [id number] GERD 1 tablet DAILY 1 tablet DAILY (route: oral) Med Classific ation: Gastroint estinal Therapy Agents hydroxyzine HCl 25 mg tablet 09-19 00:00: 00 09-04 00:00 :00 No [id number] ANXIETY Per instruc tions EVERY 6 HOURS Per instructio ns EVERY 6 HOURS (route: oral) Med Classific ation: Central Nervous System Agents atenolol 25 mg tablet 10-25 00:00: 00 05-17 00:00 :00 No [id number] BLOOD PRESSURE 1 tablet DAILY 1 tablet DAILY (route: oral) Med Classific ation: Cardiovas cular Therapy Agents donepezil 10 mg tablet 10-25 00:00: 00 Yes [id number] DEMENTIA 1 tablet BEDTIME 1 tablet BEDTIME (route: oral) Med Classific ation: Cognitive Disorder Therapy Eliquis 5 mg tablet 10-25 00:00: 00 Yes [id number] BLOOD THINNER 1 tablet 2 TIMES DAILY 1 tablet 2 TIMES DAILY (route: oral) Med Classific ation: Hematolog ical Agents Entresto 49 mg-51 mg tablet 10-25 00:00: 00 05-17 00:00 :00 No [id number] HEART FAILURE 1 tablet 2 TIMES DAILY 1 tablet 2 TIMES DAILY (route: oral) Med Classific ation: Cardiovas cular Therapy Agents pravastatin 20 mg tablet 10-25 00:00: 00 02-21 00:00 :00 No [id number] CHOLESTEROL 1 tablet BEDTIME 1 tablet BEDTIME (route: oral) Med Classific ation: Cardiovas cular Therapy Agents alendronate 70 mg tablet 02-14 00:00: 00 09-04 00:00 :00 No [id number] OSTEOPOROSI S 1 tablet WEEKLY 1 tablet WEEKLY (route: oral) Med Classific ation: Endocrine atorvastati n 40 mg tablet 02-14 00:00: 00 Yes [id number] CHOLESTEROL 1 tablet BEDTIME 1 tablet BEDTIME (route: oral) Med Classific ation: Cardiovas cular Therapy Agents Breyna 160 mcg-4.5 mcg/actuati on HFA aerosol inhaler 02-14 00:00: 00 05-17 00:00 :00 No [id number] COPD 2 puff 2 TIMES DAILY 2 puff 2 TIMES DAILY (route: inhalation ) Med Classific ation: Respirato ry Therapy Agents buspirone 30 mg tablet 02-14 00:00: 00 Yes [id number] MOOD 1 tablet 2 TIMES DAILY 1 tablet 2 TIMES DAILY (route: oral) Med Classific ation: Central Nervous System Agents guaifenesin ER 600 mg tablet, extended release 12 hr 02-14 00:00: 00 09-04 00:00 :00 No [id number] COUGH 2 tablet 2 TIMES DAILY 2 tablet 2 TIMES DAILY (route: oral) Med Classific ation: Respirato ry Therapy Agents prednisone 20 mg tablet 02-14 00:00: 05-17 00:00 :00 No [id number] COPD 2 tablet 2 TIMES DAILY 2 tablet 2 TIMES DAILY (route: oral) Med Classific ation: Endocrine Trelegy Ellipta 100 mcg-62.5 mcg-25 mcg powder for inhalation 02-14 00:00: 00 09-04 00:00 :00 No [id number] COPD 1 inhalat ion DAILY 1 inhalation DAILY (route: inhalation ) Med Classific ation: Respirato ry Therapy Agents acetazolami de 250 mg tablet 05-17 00:00: 00 09-04 00:00 :00 No [id number] SHORTNESS OF BREATH 1 tablet 2 TIMES DAILY 1 tablet 2 TIMES DAILY (route: oral) Med Classific ation: Cardiovas cular Therapy Agents bumetanide 2 mg tablet 05-17 00:00: 00 09-04 00:00 :00 No [id number] EDEMA 1 tablet 2 TIMES DAILY 1 tablet 2 TIMES DAILY (route: oral) Med Classific ation: Cardiovas cular Therapy Agents diltiazem 120 mg tablet 05-17 00:00: 00 09-04 00:00 :00 No [id number] ANGINA 1 tablet DAILY 1 tablet DAILY (route: oral) Med Classific ation: Cardiovas cular Therapy Agents levofloxaci n 750 mg tablet 05-17 00:00: 05-23 23:59 :00 No [id number] ANTIBIOTIC 1 tablet DAILY 1 tablet DAILY (route: oral) Med Classific ation: Anti-Infe ctive Agents metoprolol tartrate 25 mg tablet 05-17 00:00: 00 09-04 00:00 :00 No [id number] BLOOD PRESSURE 1 tablet 2 TIMES DAILY 1 tablet 2 TIMES DAILY (route: oral) Med Classific ation: Cardiovas cular Therapy Agents Stool Softener 100 mg capsule 08-01 00:00: 00 09-04 00:00 :00 No [id number] CONSTIPATIO N 100 mg 2 TIMES DAILY 100 mg 2 TIMES DAILY (route: oral) Med Classific ation: Gastroint estinal Therapy Agents valsartan 40 mg tablet 08-01 00:00: 00 09-04 00:00 :00 No [id number] BP 40 mg 2 TIMES DAILY 40 mg 2 TIMES DAILY (route: oral) Med Classific ation: Cardiovas cular Therapy Agents acetaminoph en 500 mg tablet 09-04 00:00: 00 Yes [id number] PAIN 1 tablet EVERY 4 HOURS 1 tablet EVERY 4 HOURS (route: oral) Med Classific ation: Analgesic , Anti-infl ammatory or Antipyret ic amiodarone 200 mg tablet 09-04 00:00: 00 Yes [id number] HEART 2 tablet 2 TIMES DAILY 2 tablet 2 TIMES DAILY (route: oral) Med Classific ation: Cardiovas cular Therapy Agents clopidogrel 75 mg tablet 09-04 00:00: 00 Yes [id number] HEART 1 tablet DAILY 1 tablet DAILY (route: oral) Med Classific ation: Hematolog ical Agents dapaglifloz in propanediol 10 mg tablet 09-04 00:00: 00 Yes [id number] T2DM 1 tablet 2 TIMES DAILY 1 tablet 2 TIMES DAILY (route: oral) Med Classific ation: Endocrine docusate sodium 100 mg capsule 09-04 00:00: 00 Yes [id number] CONSTIPATIO N 1 capsule 2 TIMES DAILY 1 capsule 2 TIMES DAILY (route: oral) Med Classific ation: Gastroint estinal Therapy Agents furosemide 20 mg tablet 09-04 00:00: 00 Yes [id number] EDEMA 1 tablet 2 TIMES DAILY 1 tablet 2 TIMES DAILY (route: oral) Med Classific ation: Cardiovas cular Therapy Agents hydroxyzine HCl 50 mg tablet 09-04 00:00: 00 Yes [id number] ANXIETY 1 tablet EVERY 6 HOURS 1 tablet EVERY 6 HOURS (route: oral) Med Classific ation: Central Nervous System Agents irbesartan 75 mg tablet 09-04 00:00: 00 Yes [id number] BLOOD PRESSURE 0.5 tablet BEDTIME 0.5 tablet BEDTIME (route: oral) Med Classific ation: Cardiovas cular Therapy Agents trazodone 50 mg tablet 09-04 00:00: 00 Yes [id number] DEPRESSION 1 tablet BEDTIME 1 tablet BEDTIME [...] TO EVALUATE, OBSERVE / ASSESS, AND MONITOR, OIL FIELD RIG BUILDER TO OBSERVE AND MONITOR, PROVIDE SKILLED THERAPEUTIC INTERVENTION, ACTIVITY, EDUCATION, AND TRAINING TO ADDRESS; [code = AGENCY MAY PERFORM A RESUMPTION OF CARE VISIT FOLLOWING ANY HOSPITAL ADMISSION. PT TO EVALUATE, OBSERVE / ASSESS, AND MONITOR, OIL FIELD RIG BUILDER TO OBSERVE AND MONITOR, PROVIDE SKILLED THERAPEUTIC INTERVENTION, ACTIVITY, EDUCATION, AND TRAINING TO ADDRESS;] Future Scheduled Test SIT TO/FRO M STAND TRANSFERS (PT/OIL FIELD RIG BUILDER) [code = SIT TO/FROM STAND TRANSFERS (PT/OIL FIELD RIG BUILDER)] Future Scheduled Test PT/OIL FIELD RIG BUILDER TO PROVIDE GAIT TRAINING FOR IMPROVED MOBILITY AND /OR TO NORMALIZE GAIT PATTERN [code = PT/OIL FIELD RIG BUILDER TO PROVIDE GAIT TRAINING FOR IMPROVED MOBILITY AND /OR TO NORMALIZE GAIT PATTERN] Future Scheduled Test NEUROMUSCU LAR RE-EDUCATION / BALANCE / POSTURAL CONTROL (PT) [code = NEUROMUSCULAR RE-EDUCATION / BALANCE / POSTURAL CONTROL (PT)] Future Scheduled Test THERAPEUTI C EXERCISES AND ESTABLISHING A HOME EXERCISE PROGRAM (PT/OIL FIELD RIG BUILDER) [code = THERAPEUTIC EXERCISES AND ESTABLISHING A HOME EXERCISE PROGRAM (PT/OIL FIELD RIG BUILDER)] Future Scheduled Test AGENCY MAY PERFORM A RESUMPTION OF CARE VISIT FOLLOWING ANY HOSPITAL ADMISSION. OT TO EVALUATE, OBSERVE / ASSESS, AND MONITOR, EMILIANO TO OBSERVE AND MONITOR, PROVIDE SKILLED THERAPEUTIC INTERVENTION, ACTIVITY, EDUCATION, AND TRAINING TO ADDRESS; IMPROVED FUNCTIONAL TRANSFERS, SELF CARE PERFORMANCE BATHING/SHOWERING (OT/TON CONTAINER SHIPPER) ACTIVITIES OF DAILY LIVING (OT/TON CONTAINER SHIPPER) TOILET TRANSFER (OT/EMILIANO) BATH/SHOWER TRANSFER (OT/TON CONTAINER SHIPPER) OT/EMILIANO TO MONITOR AND EDUCATE ON OXYGEN SATURATION DURING ADLS/IADLS, NOTIFY PHYSICIAN AND/OR THE RN CLINICAL SENIOR CONTROL SYSTEMS ENGINEER FOR PHYSICIAN NOTIFICATION AND IF O2 SATS [...] TO EVALUATE, OBSERVE / ASSESS, AND MONITOR, TON CONTAINER SHIPPER TO OBSERVE AND MONITOR, PROVIDE SKILLED THERAPEUTIC INTERVENTION, ACTIVITY, EDUCATION, AND TRAINING TO ADDRESS; IMPROVED FUNCTIONAL TRANSFERS, SELF CARE PERFORMANCE BATHING/SHOWERING (OT/TON CONTAINER SHIPPER) ACTIVITIES OF DAILY LIVING (OT/EMILIANO) TOILET TRANSFER (OT/TON CONTAINER SHIPPER) BATH/SHOWER TRANSFER (OT/TON CONTAINER SHIPPER) OT/TON CONTAINER SHIPPER TO MONITOR AND EDUCATE ON OXYGEN SATURATION DURING ADLS/IADLS, NOTIFY PHYSICIAN AND/OR THE RN CLINICAL SENIOR CONTROL SYSTEMS ENGINEER FOR PHYSICIAN NOTIFICATION AND IF O2 SATS BELOW 90% AFTER 10 MIN OF REST. OT/TON CONTAINER SHIPPER MAY EDUCATE ON PAIN MANAGEMENT CLINICALLY INDICATED, [...] IMPROVEMENT IN MODIFIED EMERITA INDEX SCORE FROM 79 TO 90 INDICATING [...] Encounter Type Admission Type Attending Clinicians Care [facility] Care Department Encounter ID Discharge Date Discharge Status Discharge Condition Discharge Reason Percent Goals Met 2024-11-03 00:00:00 2024-12-15 00:00:00 Outpatient RECERTIFIC LAURITA SPAULDING [facility] [id number] 2024-12-15 00:00:00 DISCHARGE TO HOME OR SELF CARE INDEPENDEN T WITH USE OF ASSISTIVE DEVICE HH - NON COMPLIANT WITH PLAN OF TREATMENT 66.67
--- OUTSIDE RECORDS SUMMARY | 2025-01-30 14:14 | XMS_ITS | CCD ---
Author Organization Unknown Care Team Providers Care Technical Systems Architect Name Role Phone Non Engaged, [employer] Primary Care Provider Unav ailable Unavailable Chronic Care Management Unavaila ble Summary Purpose DataExchange Insurance Providers Payer name Policy type / Coverage type Covered democrat ID Effective Begin Date Effective End Date [facility] [id number] Unknown Unknown Family History Family History data not found Medication Administered No Medication Administered data Reason For Visit No Reason For Visit data Medical Equipment No Medical Equipment data Advance Directives No Advance Directive data
--- OUTSIDE RECORDS SUMMARY | 2025-01-30 14:14 | XMS_ITS | CCD ---
Author Organization Unknown Care Team Providers Care Forestry Farm Laborer Name Role Phone Non Engaged, [facility] Primary Care Provider Unav ailable Unavailable Chronic Care Management Unavaila ble Summary Purpose DataExchange Insurance Providers Payer name Policy type / Coverage type Covered democrat ID Effective Begin Date Effective End Date [facility] [id number] Unknown Unknown Family History Family History data not found Medication Administered No Medication Administered data Reason For Visit No Reason For Visit data Medical Equipment No Medical Equipment data Advance Directives No Advance Directive data
--- OUTSIDE RECORDS SUMMARY | 2025-01-30 14:15 | XMS_ITS | Encounter Summary ---
[facility] Address [address] [place] [address] Care Team Providers Care Floor And Wall Applier Liquid Name Role Phone Earl Dumont MD Primary Care Provider [phone] Reason for Visit * Reason Onset Date Comments Med Refill 12/25/2024 Encounter Details Date Type Department Care Team (Late st Contact Info) Description 12/25/[address] [facility] [address] [facility] [place] [address] Earl Dumont MD [address] [facility] [place] [address] Med Refill Social History Tobacco [...] PM EST HUB RELAY: Will send in treleKupiBonus. Is she taking this now instead of her wixela? Lvm * Telephone Encounter - Earl Dumont MD - 12/25/2024 6:48 PM EST Will send in trelegy. Is she taking this now instead of her wixela? * Telephone Encounter - Sharmaine Horne RegSched Rep - 12/25/2024 12:02 PM EST Caller: SHAKILA COX Relationship: Best call back number: [phone] Requested Prescriptions: TRELEGY (NOT SEEN ON ACTIVE MED LIST) Pharmacy where request should be sent: [facility] [place] [facility] [address] [address] - [phone] - [phone] FX Last office visit with prescribing clinician: [...] Description 02/26/2025 3:[address] [facility] [address] [facility] [place] [phone] Earl Dumont MD [address] [place] [address] documented as of this encounter Visit Diagnoses Diagnosis Panlobular emphysema- Primary Other emphysema documented in this encounter Additional Health Concerns Assessment Noted Time PHQ-2 Depression Total Score: 2 07/14/19 24 4:30 PM EDT documented as of this encounter Care Teams Floor And Wall Applier Liquid Relationship Specialty Start Date End Date Earl Dumont MD [address] [place] [address] PCP - General Family Medicine 01/23/20 documented as of this encounter
--- OUTSIDE RECORDS SUMMARY | 2025-01-30 14:15 | XMS_ITS | Encounter Summary ---
Author Organization [facility] Address [address] [place] [address] Care Team Providers Care Elementary School Principal Name Role Phone Earl Dumont MD Primary Care Provider [phone] Reason for Visit * Reason Comments Med Refill Encounter Details Date Type Department Care Team (Late st Contact Info) Description 12/22/2024 Refill [facility] FAM[facility] MEDICINE 210 [facility] [place] [address] Earl Dumont MD [address] [facility] [place] [place] [address] Age-related osteoporosis with current pathological [...] Description 02/26/2025 3:15 PM EST Office Visit [facility] FAMILY MEDICINE [address] [...] documented as of this encounter Care Teams Elementary School Principal Relationship Specialty Start Date End Date Earl Dumont MD [address] [place] [address] PCP - General Family Medicine 01/23/20 documented as of this encounter
--- OUTSIDE RECORDS SUMMARY | 2025-01-30 14:15 | XMS_ITS | Encounter Summary ---
Author Organization [facility] Address [address] [place] [address] Care Team Providers Care Corn Husker Machine Operator Name Role Phone Earl Gomez MD Primary Care Provider [phone] Reason for Visit * Reason Onset Date Comments MEDICAL EQUIPMENT 12/11/2024 Encounter Details Date Type Department Care Team (Late st Contact Info) Description 12/11/[address] [facility] FAMILY MEDICINE [address] [facility] [place] [address] Earl Gomez MD [address] [facility] [place] [address] MEDICAL EQUIPMENT Social History Tobacco [...] COX Relationship: Shalonda Harmon call back number: [phone] Equipment requested: BEDSIDE COMMODE Reason for the request: TROUBLE WALKING TO BATHROOM Prescribing Provider: DR. GOMEZ Additional information or concerns: THEY WOULD LIKE TO KNOW IF AN ORDER FOR THIS CAN BE SENT TO [facility] MEDICAL EQUIPMENT documented in this encounter Plan of Treatment Upcoming Encounters Date Type Department Care Team (Late st Contact Info) Description 02/26/2025 3:15 PM EST Office Visit [facility]INE [address] [place] [phone] Earl Gomez MD [address] [place] [address] documented as of this encounter Visit Diagnoses Not on filedocumented in this encounter Additional Health Concerns Assessment Noted Time PHQ-2 Depression Total Score: 2 07/14/19 24 4:30 PM EDT documented as of this encounter Care Teams Corn Husker Machine Operator Relationship Specialty Start Date End Date Earl Gomez MD [address] [place] [address] PCP - General Family Medicine 01/23/20 documented as of this encounter
--- OUTSIDE RECORDS SUMMARY | 2025-01-30 14:15 | XMS_ITS | Encounter Summary ---
Author Organization [facility] Address [address] [place] [address] Care Team Providers Care Sales Broker Name Role Phone Earl Dumont MD Primary Care Provider [phone] Reason for Visit * Reason Onset Date Comments New Med Request 12/15/2024 Encounter Details Date Type Department Care Team (Late st Contact Info) Description 12/15/[address] [facility]INE [address] [facility] [place] [address] Earl Dumont MD [address] [facility] [place] [address] New Med Request Social History [...] - 12/15/2024 3:52 PM EST Caller: JASMIN PBAON Relationship: Emergency Contact Best call back number: [phone] What medication are you requesting: METHOCARBAMOL 500 MG 2 PILLS EVERY 8 HOURS Have you had these symptoms before: [x] Yes [] No Have you been treated for these symptoms before: [x] Yes [] No If a prescription is needed, what is your preferred pharmacy and phone number: [facility] - [place] - [address] [address] [address] - [phone] - [phone] FX Additional notes:PATIENTS GRANDDAUGHTER STATES THAT SHE IS ON THIS documented in this encounter Plan of Treatment Upcoming Encounters Date Type Department Care Team (Late st Contact Info) Description 02/26/2025 3:15 PM EST Office Visit [facility] MEDICINE [address] [place] [phone] Earl Dumont MD [address] [place] [address] documented as of this encounter Visit Diagnoses Not on filedocumented in this encounter Additional Health Concerns Assessment Noted Time PHQ-2 Depression Total Score: 2 07/14/19 24 4:30 PM EDT documented as of this encounter Care Teams Sales Broker Relationship Specialty Start Date End Date Earl Dumont MD [address] [place] [address] PCP - General Family Medicine 01/23/20 documented as of this encounter
--- OUTSIDE RECORDS SUMMARY | 2025-01-30 14:15 | XMS_ITS | Encounter Summary ---
[facility] Address [address] [place] [address] Care Team Providers Care Regional Transfer Liaison Name Role Phone Earl Dumont MD Primary Care Provider [phone] Reason for Visit * Reason Onset Date Comments Med Management 12/05/2024 Encounter Details Date Type Department Care Team (Late st Contact Info) Description 12/05/2024 Telephone [facility] FAM[facility] MEDICINE 210 [facility] [place] [address] Earl Dumont MD [address] [facility] [place] [address] Med Management Social History Tobacco [...] Garcia Relationship: Self Best call back number: [phone] What medication are you requesting: SOMETHING STRONGER THAN HYDROCODONE What are your current symptoms: LUMBAR FRACTURE Have you had these symptoms before: [x] Yes [] No Have you been treated for these symptoms before: [x] Yes [] No If a prescription is needed, what is your preferred pharmacy and phone number: [id number] [place] [facility] [address] [facility] [address] - [phone] - [phone] FX Additional notes: PATIENT STATED THAT THE HYDROCODONE IS LIKE TAKING A TYLENOL. documented in this encounter Plan of Treatment Upcoming Encounters Date Type Department Care Team (Late st Contact Info) Description 02/26/2025 3:15 PM EST Office Visit [facility] FAM[facility] MEDICINE [address] [place] [phone] Earl Dumont MD [address] [place] [address] documented as of this encounter Visit Diagnoses Not on filedocumented in this encounter Additional Health Concerns Assessment Noted Time PHQ-2 Depression Total Score: 2 07/14/19 24 4:30 PM EDT documented as of this encounter Care Teams Regional Transfer Liaison Relationship Specialty Start Date End Date Earl Dumont MD [address] [place] [address] PCP - General Family Medicine 01/23/20 documented as of this encounter
--- OUTSIDE RECORDS SUMMARY | 2025-01-30 14:15 | XMS_ITS | Encounter Summary ---
Author Organization [facility] Address [address] [place] [address] Care Team Providers Care User Experience Analyst Name Role Phone Earl Dumont MD Primary Care Provider [phone] Reason for Visit * Reason Onset Date Comments Med Refill 10/02/2024 Encounter Details Date Type Department Care Team (Late st Contact Info) Description 10/02/2024 Refill [facility] FAMILY MEDICINE 210 [place] [address] Earl Dumont MD 210 [place] [address] Social History Tobacco Use Types [...] Garcia Relationship: Self Best call back number: [phone] Requested Prescriptions: Requested Prescriptions Pending Prescriptions Disp Refills nystatin (MYCOSTATIN) 014501 UNIT/GM powder 60 g 1 Sig: Apply topically to the appropriate area as directed 3 (Three) Times a Day. Pharmacy where request should be sent: [id number] - [place] - [address] [address] [address] [facility] [phone] [facility] [phone] FX Last office visit with prescribing clinician: [...] Description 02/26/2025 3:15 PM EST Office Visit [facility] FAMILY MEDICINE 210 [facility] [place] [phone] Earl Dumont MD [address] [facility] [place] [address] documented as of this encounter Visit Diagnoses Not on filedocumented in this encounter Additional Health Concerns Assessment Noted Time PHQ-2 Depression Total Score: 2 07/14/19 24 4:30 PM EDT documented as of this encounter Care Teams User Experience Analyst Relationship Specialty Start Date End Date Earl Dumont MD [address] [facility] [place] [address] PCP - General Family Medicine 01/23/20 documented as of this encounter
--- OUTSIDE RECORDS SUMMARY | 2025-01-30 14:15 | XMS_ITS | Encounter Summary ---
Author Organization [facility] Address [address] [place] [address] Care Team Providers Care Beater Machine Operator Name Role Phone Earl Dumont MD Primary Care Provider [phone] Reason for Visit * Reason Onset Date Comments Med Refill 12/20/2024 Encounter Details Date Type Department Care Team (Late st Contact Info) Description 12/20/2024 Refill [facility] MEDICINE 210 [place] [address] Earl Dumont MD 210 [place] [address] Age-related osteoporosis without current pathological [...] SHAKILA COX Relationship: Best call back number: [phone] Requested Prescriptions: Requested Prescriptions Pending Prescriptions Disp [...] Pharmacy where request should be sent[facility] [place] [facility] [address] [address] [address] - [phone] PH - [phone] FX Last office visit with prescribing clinician: [...] 3:15 PM EST Office Visit [facility] 210 [facility] [place] [address] Earl Dumont MD [address] [facility] [place] [address] documented as of this encounter Visit Diagnoses [...] documented as of this encounter Care Teams Beater Machine Operator Relationship Specialty Start Date End Date Earl Dumont MD [address] [place] [address] PCP - General Family Medicine 01/23/20 documented as of this encounter
--- OUTSIDE RECORDS SUMMARY | 2025-01-30 14:15 | XMS_ITS | Encounter Summary ---
Author Organization [facility] Address [address] [place] [address] Care Team Providers Care Business Strategist Name Role Phone Earl Dumont MD Primary Care Provider [phone] Reason for Visit * Reason Comments Med Refill Encounter Details Date Type Department Care Team (Late st Contact Info) Description 12/22/2024 Refill [facility] FAMILY MEDICINE 210 [facility] [place] [address] Earl Dumont MD [address] [facility] [place] [address] Memory change Social History Tobacco [...] Visit [facility] FAMILY MEDICINE [address] [place] [address] Earl Dumont MD [address] [place] [address] documented as of this encounter Visit Diagnoses Diagnosis Memory change Memory loss documented in this encounter Additional Health Concerns Assessment Noted Time PHQ-2 Depression Total Score: 2 07/14/19 24 4:30 PM EDT documented as of this encounter Care Teams Business Strategist Relationship Specialty Start Date End Date Earl Dumont MD [address] [place] [address] PCP - General Family Medicine 01/23/20 documented as of this encounter
--- OUTSIDE RECORDS SUMMARY | 2025-01-30 14:15 | XMS_ITS | Encounter Summary ---
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 Social History Tobacco Use Types Packs/Day Years [...] 02/26/2025 3:15 PM EST Office Visit [facility] FAMILY MEDICINE [address] [place] [address] Earl Dumont MD [address] [place] [address] documented as of this encounter Visit Diagnoses Diagnosis History of pulmonary embolism Personal history of venous thrombosis and 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
--- OUTSIDE RECORDS SUMMARY | 2025-01-30 14:15 | XMS_ITS | Encounter Summary ---
Author Organization [facility] Address [address] [place] [address] Care Team Providers Care Director River Restoration Name Role Phone Earl Dumont MD Primary Care Provider [phone] Reason for Visit * Reason Onset Date Comments Med Refill 01/08/2025 Encounter Details Date Type Department Care Team (Late st Contact Info) Description 01/08/2025 Refill [facility] FAMILY MEDICINE 210 [place] [address] Earl Dumont MD 210 [place] [address] Age-related osteoporosis with current pathological [...] COX Relationship: Grandchild Best call back number: [phone] Requested Prescriptions: Requested Prescriptions Pending Prescriptions Disp Refills HYDROcodone-acetaminophen (NORCO) 5-325 MG per tablet 20 tablet 0 Sig: TAKE 1/2 TO 1 TABLET BY MOUTH EVERY TWELVE HOURS NEEDED FOR pain Pharmacy where request should be sent: [facility] - [place] [address] - [phone] [place] [phone] FX Last office visit with prescribing clinician: [...] Description 02/26/2025 3:15 PM EST Office Visit [facility] FAMILY MEDICINE 210 [facility] [place] [phone] Earl Dumont MD [address] [facility] [place] [address] documented as of this encounter Visit Diagnoses Diagnosis Age-related osteoporosis with current pathological fracture with routine healing, subsequent encounter Compression fracture of L2 vertebra with routine healing, subsequent encounter documented in this encounter Additional Health Concerns Assessment Noted Time PHQ-2 Depression Total Score: 2 07/14/19 24 4:30 PM EDT documented as of this encounter Care Teams Director River Restoration Relationship Specialty Start Date End Date Earl Dumont MD [address] [place] [address] PCP - General Family Medicine 01/23/20 documented as of this encounter
--- OUTSIDE RECORDS SUMMARY | 2025-01-30 14:15 | XMS_ITS | Encounter Summary ---
Author Organization [facility] Address [address] [place] [address] Care Team Providers Care Manager Zone Name Role Phone Earl Dumont MD Primary Care Provider [phone] Reason for Visit * Reason Comments Med Refill Encounter Details Date Type Department Care Team (Late st Contact Info) Description 05/08/2022 Refill [facility] FAMILY MEDICINE 210 [facility] [place] [address] Earl Dumont MD [address] [facility] [place] [address] Generalized anxiety disorder Social History [...] Description 02/26/2025 3:15 PM EST Office Visit [facility] MEDICINE [address] [place] [address] Earl Dumont MD [address] [place] [address] documented as of this encounter Visit Diagnoses Diagnosis Generalized anxiety disorder documented in this encounter Care Teams Manager Zone Relationship Specialty Start Date End Date Earl Dumont MD [address] [place] [address] PCP - General Family Medicine 01/23/20 documented as of this encounter
--- OUTSIDE RECORDS SUMMARY | 2025-01-30 14:15 | XMS_ITS | Encounter Summary ---
Author Organization [facility] Address [address] [place] [address] Care Team Providers Care Load Builder Name Role Phone Earl Dumont MD Primary Care Provider [phone] Reason for Visit * Reason Onset Date Comments Med Refill 01/16/2025 Encounter Details Date Type Department Care Team (Late st Contact Info) Description 01/16/2025 Refill [facility] FAMILY MEDICINE 210 [place] [address] Earl Dumont MD 210 [place] [address] Generalized anxiety disorder; Recurrent major depressive disorder, in full remission; Hypercholesterolemia Social History Tobacco Use Types Packs/Day Years [...] Encounter - Kari Blanton RegSched Rep - 01/16/2025 1:46 PM EST Caller: SHAKILA COX Relationship: Emergency Contact Best call back number: [phone] Requested Prescriptions: Requested Prescriptions Pending Prescriptions Disp Refills busPIRone (BUSPAR) 30 MG tablet 180 tablet 1 Sig: Take 1 tablet by mouth 2 (Two) Times a Day. atorvastatin (Lipitor) 40 MG tablet 90 tablet 1 Sig: Take 1 tablet by mouth Daily. [facility] where [facility] be sent[facility] [address] [address] [address] - [phone] - [phone] FX Last office visit with prescribing clinician: 12/08/2024 Last telemedicine visit with prescribing clinician: Visit date not found Next office visit with prescribing clinician: 02/26/2025 Additional details provided by patient: Does the patient have less than a 3 day supply: [] Yes [x] No Would you like a call back once the refill request has been completed: [] Yes [x] No If the office needs to give you a call back, can they leave a voicemail: [] Yes [x] No Farhad Ibarra Rep 01/16/25 13:48 EST documented in this encounter Plan of Treatment Upcoming Encounters Date Type Department Care Team (Late st Contact Info) Description 02/26/2025 3:15 PM EST Office Visit [facility] FAMILY MEDICINE 210 [facility] [place] [phone] Earl Dumont MD 210 [facility] [place] [address] documented as of this encounter Visit Diagnoses Diagnosis Generalized anxiety disorder Recurrent major depressive disorder, in full remission Hypercholesterolemia Pure hypercholesterolemia documented in this encounter Additional Health Concerns Assessment Noted Time PHQ-2 Depression Total Score: 2 07/14/19 24 4:30 PM EDT documented as of this encounter Care Teams Load Builder Relationship Specialty Start Date End Date Earl Dumont MD [address] [place] [address] PCP - General Family Medicine 01/23/20 documented as of this encounter
--- OUTSIDE RECORDS SUMMARY | 2025-01-30 14:15 | XMS_ITS | Encounter Summary ---
Author Organization [facility] Address [address] [place] [address] Care Team Providers Care Special Certificate Dictator Name Role Phone Earl Dumont MD Primary Care Provider [phone] Reason for Visit * Reason Comments Med Refill Encounter Details Date Type Department Care Team (Late st Contact Info) Description 10/12/2024 Refill [facility] FAMILY MEDICINE 210 [facility] [place] [address] Earl Dumont MD [address] [facility] [place] [place] [address] Generalized anxiety disorder Social History [...] [facility] FAMILY MEDICINE [address] [place] [address] Earl Dumont MD [address] [place] [address] documented as of this encounter Visit Diagnoses Diagnosis Generalized anxiety disorder documented in this encounter Additional Health Concerns Assessment Noted Time PHQ-2 Depression Total Score: 2 07/14/19 24 4:30 PM EDT documented as of this encounter Care Teams Special Certificate Dictator Relationship Specialty Start Date End Date Earl Dumont MD [address] [place] [address] PCP - General Family Medicine 01/23/20 documented as of this encounter
--- OUTSIDE RECORDS SUMMARY | 2025-01-30 14:15 | XMS_ITS | Encounter Summary ---
[facility] Organization [facility] Address [address] [place] [address] Care Team Providers Care Drier Operator Helper Name Role Phone Earl Dumont MD Primary Care Provider [phone] Reason for Visit * Reason Comments Med Refill Encounter Details Date Type Department Care Team (Late st Contact Info) Description 04/10/2022 Refill [facility] [address] [place] [address] Earl Dumont MD [address] [place] [address] Essential hypertension Social History Tobacco [...] in a chcf (including now)? No 10/01/2021 Comments No Sex [...] Description 02/26/2025 3:15 PM EST Office Visit [facility] [address] [address] Earl Dumont MD [address] [address] documented as of this encounter Visit Diagnoses Diagnosis Essential hypertension Unspecified essential hypertension documented in this encounter Additional Health Concerns Assessment Noted Time PHQ-2 Depression Total Score: 1 04/26/19 22 2:42 PM EDT documented as of this encounter Care Teams Drier Operator Helper Relationship Specialty Start Date End Date Earl Dumont MD [address] [address] PCP - General Family Medicine 01/23/20 documented as of this encounter
--- OUTSIDE RECORDS SUMMARY | 2025-01-30 14:15 | XMS_ITS | Encounter Summary ---
[facility] Organization [facility] Address [address] [place] [address] Care Team Providers Care Dry Curer Name Role Phone Earl Dumont MD Primary Care Provider [phone] Reason for Referral * MRI/CAT/PET Scan (Routine) - Closed Specialty Diagnoses / Procedures Referred By Contac t Referred To Contact Radiology Diagnoses Lung nodule Procedures CT Chest Without Contrast Earl Dumont MD [address] [place] [address] Phone: tel: fax: [facility] [address] [place] [address] Phone: tel: Referral ID Status Reason Start Date Expiration Date Visits Re quested Visits Authorized [id number] Closed 09/27/2024 12/27/2025 1 1 Encounter Details Date Type Department Care Team (Late st Contact Info) Description 09/27/2024 Results Follow-Up [facility] [address] [place] [address] Earl Dumont MD [address] [place] [address] Social History Tobacco Use Types [...] Description 02/26/2025 3:15 PM EST Office Visit [facility] [address] [place] [phone] Earl Dumont MD [address] [place] [address] Scheduled Orders Name Type Priority [...] as of this encounter Care Teams Dry Curer Relationship Specialty Start Date End Date Earl Dumont MD [address] [place] [address] PCP - General Family Medicine 01/23/20 documented as of this encounter
--- OUTSIDE RECORDS SUMMARY | 2025-01-30 14:15 | XMS_ITS | Encounter Summary ---
[facility] Organization [facility] Address [address] [place] [address] Care Team Providers Care Radiator Core Tester Name Role Phone Earl Dumont MD Primary Care Provider [phone] Reason for Visit * Reason Onset Date Comments New Med Request 01/29/2025 Encounter Details Date Type Department Care Team (Late st Contact Info) Description 01/29/2025 Telephone [facility] [address] [facility] [place] [address] Earl Dumont MD [address] [facility] [place] [address] New Med Request Social History [...] Telephone Encounter - Earl Dumont MD - 01/29/2025 2:36 PM EST Sent in * Telephone Encounter - Cyrus Carmona RegSched Rep - 01/29/2025 1:01 PM EST Caller: SHAKILA Relationship: Best call back number: [phone] What medication are you requesting: GUAIFENESIN 600 MG ER TABLET What are your current symptoms: BAD COUGH AND CONGESTION How long have you been experiencing symptoms: INTERMITTENT Have you had these symptoms before: [x] Yes [] No Have you been treated for these symptoms before: [x] Yes [] No If a prescription is needed, what is your preferred pharmacy and phone number: [facility] [place] - [address] [address] [address] - [phone] PH - [phone] FX Additional notes: PT IS NEEDING THE MEDICATION FOR PERSISTENT COUGH. documented in this encounter Plan of Treatment Upcoming Encounters Date Type Department Care Team (Late st Contact Info) Description 02/26/2025 3:15 PM EST Office Visit [facility] [address] [place] [phone] Earl Dumont MD [address] [place] [address] documented as of this encounter Visit Diagnoses Not on filedocumented in this encounter Additional Health Concerns Assessment Noted Time PHQ-2 Depression Total Score: 2 07/14/19 24 4:30 PM EDT documented as of this encounter Care Teams Radiator Core Tester Relationship Specialty Start Date End Date Earl Dumont MD [address] [place] [address] PCP - General Family Medicine 01/23/20 documented as of this encounter
--- OUTSIDE RECORDS SUMMARY | 2025-01-30 14:15 | XMS_ITS | Encounter Summary ---
Author Organization [facility] Address [address] [place] [address] Care Team Providers Care Wireless Construction Manager Name Role Phone Earl Dumont MD Primary Care Provider [phone] Reason for Visit * Reason Onset Date Comments New Med Request 01/16/2025 Encounter Details Date Type Department Care Team (Late st Contact Info) Description 01/16/2025 Telephone [facility] [address] [facility] [place] [address] Earl Dumont MD [address] [facility] [place] [address] New Med Request Social History [...] Telephone Encounter - Sadaf Godinez MA - 01/17/2025 12:48 PM EST ATTEMPTED TO CALL, STATED THAT THE VERIZON NUMBER HAD BEEN CHANGED * Telephone Encounter - Earl Dumont MD - 01/16/2025 4:34 PM EST Will send in script, 1 every 6 hours as needed. 2 at a time is too much for her * Telephone Encounter - Chapin Whittaker RegSched Rep - 01/16/2025 1:59 PM EST Caller: JASMIN PABON Relationship: Emergency Contact Best call back number: [phone] What medication are you requesting: METHOCARBAMOL 500 MG 2 TABLETS EVERY 8 HOURS If a prescription is needed, what is your preferred pharmacy and phone number: [facility] - [address] - [address] [address] [address] - [phone] PH - [phone] FX Additional notes: PATIENT RECEIVED THIS AT HER ER VISIT IN NOVEMBER 2024 AND ER INFORMED PATIENT TO SPEAK WITH PRIMARY CARE TO GET IT REFILLED IF NECESSARY. documented in this encounter Plan of Treatment Upcoming Encounters Date Type Department Care Team (Late st Contact Info) Description 02/26/2025 3:15 PM EST Office Visit [facility] [address] [place] [address] Earl uDmont MD [address] [address] documented as of this encounter Visit Diagnoses Not on filedocumented in this encounter Additional Health Concerns Assessment Noted Time PHQ-2 Depression Total Score: 2 07/14/19 24 4:30 PM EDT documented as of this encounter Care Teams Wireless Construction Manager Relationship Specialty Start Date End Date Earl Dumont MD [address] [place] [address] PCP - General Family Medicine 01/23/20 documented as of this encounter
--- OUTSIDE RECORDS SUMMARY | 2025-01-30 14:15 | XMS_ITS | Encounter Summary ---
[facility] Organization [facility] Address [address] [place] [address] Care Team Providers Care Machinery Rigger Name Role Phone Earl Dumont MD Primary Care Provider [phone] Reason for Visit * Reason Onset Date Comments Med Refill 07/17/2024 Encounter Details Date Type Department Care Team (Late st Contact Info) Description 07/17/2024 Refill [facility] [address] [place] [address] Earl Dumont MD [address] [place] [address] Generalized anxiety disorder Social History [...] Garcia Relationship: Self Best call back number: [phone] Requested Prescriptions: Requested Prescriptions Pending Prescriptions Disp Refills hydrOXYzine (ATARAX) 50 MG tablet 20 tablet 1 Sig: Take 0.5-1 tablets by mouth Every 6 (Six) Hours As Needed for Anxiety. Pharmacy where request should be sent: [id number] [place] - [address] [address] [address] [facility] [phone] [facility] [phone] FX Last office visit with prescribing clinician: [...] Description 02/26/2025 3:15 PM EST Office Visit [facility] [address] [facility] [place] [place] [phone] Earl Dumont MD [address] [facility] [place] [address] documented as of this encounter Visit Diagnoses Diagnosis Generalized anxiety disorder documented in this encounter Additional Health Concerns Assessment Noted Time PHQ-2 Depression Total Score: 2 07/14/19 24 4:30 PM EDT documented as of this encounter Care Teams Machinery Rigger Relationship Specialty Start Date End Date Earl Dumont MD [address] [place] [address] PCP - General Family Medicine 01/23/20 documented as of this encounter
--- OUTSIDE RECORDS SUMMARY | 2025-01-30 14:15 | XMS_ITS | Encounter Summary ---
[facility] Address [address] [place] [address] Care Team Providers Care Lathing Supervisor Name Role Phone Earl Dumont MD Primary Care Provider [phone] Reason for Visit * Reason Onset Date Comments Med Refill 12/14/2024 Encounter Details Date Type Department Care Team (Late st Contact Info) Description 12/14/2024 Refill [facility] [address] [place] [address] Earl Dumont MD [address] [place] [address] Right leg pain; Pain of [...] COX Relationship: Grandchild Best call back number: [phone] Requested Prescriptions: Requested Prescriptions Pending Prescriptions Disp Refills traMADol (ULTRAM) 50 MG tablet 60 tablet 0 Si PO BID PRN leg pain Pharmacy where request should be sent: [facility] - [address] [place] [address] [address] - [phone] - [phone] FX Last office visit with prescribing clinician: [...] Description 02/26/2025 3:15 PM EST Office Visit [facility] [address] [place] [address] Earl Dumont MD [address] [place] [address] documented as of this encounter Visit Diagnoses Diagnosis Right leg pain Pain in soft tissues of limb Pain of right lower extremity documented in this encounter Additional Health Concerns Assessment Noted Time PHQ-2 Depression Total Score: 2 07/14/19 24 4:30 PM EDT documented as of this encounter Care Teams Lathing Supervisor Relationship Specialty Start Date End Date Earl Dumont MD [address] [place] [address] PCP - General Family Medicine 01/23/20 documented as of this encounter
--- OUTSIDE RECORDS SUMMARY | 2025-01-30 14:15 | XMS_ITS | Encounter Summary ---
Author [facility] Address [address] [place] [address] Care Team Providers Care Foot Press Operator Name Role Phone Earl Dumont MD Primary Care Provider [phone] Reason for Visit * Reason Onset Date Comments Med Management 01/17/2025 Encounter Details Date Type Department Care Team (Late st Contact Info) Description 01/17/[address] [facility] [address] [facility] [place] [address] Earl Dumont MD [address] [facility] [place] [address] Med Management Social History Tobacco [...] Telephone Encounter - Earl Dumont MD - 01/17/2025 3:42 PM EST Sent in * Telephone Encounter - Rebeca Mckeon RegSched Rep - 01/17/2025 1:12 PM EST Caller: SHAKILA COX Relationship: Grandchild Best call back number: [phone] Requested Prescriptions: Requested Prescriptions No prescriptions requested or ordered in this encounter [facility] Pharmacy where request should be sent: [facility] - [address] - [address] [address] [address] - [phone] PH - [phone] FX Last office visit with prescribing clinician: [...] [] Yes [] No Farhad Harkins Rep 01/17/25 13:13 EST documented in this encounter Plan of Treatment Upcoming Encounters Date Type Department Care Team (Late st Contact Info) Description 02/26/2025 3:15 PM EST Office Visit [facility] 210 [facility] [place] [phone] Earl Dumont MD [address] [place] [address] documented as of this encounter Visit Diagnoses Diagnosis Chronic idiopathic constipation Unspecified constipation documented in this encounter Additional Health Concerns Assessment Noted Time PHQ-2 Depression Total Score: 2 07/14/19 24 4:30 PM EDT documented as of this encounter Care Teams Foot Press Operator Relationship Specialty Start Date End Date Earl Dumont MD [address] [place] [address] PCP - General Family Medicine 01/23/20 documented as of this encounter
--- OUTSIDE RECORDS SUMMARY | 2025-01-30 14:15 | XMS_ITS | Encounter Summary ---
[facility] Address [address] [place] [address] Care Team Providers Care Fuel Verification Technician Name Role Phone Earl Dumont MD Primary Care Provider [phone] Encounter Details Date Type Department Care Team (Late st Contact Info) Description 01/29/2025 Refill [facility] [address] [facility] [place] [address] Earl Dumont MD [address] [facility] [place] [address] Generalized anxiety disorder; Recurrent major depressive disorder, in full remission; Hypercholesterolemia; Age-related osteoporosis with current pathological fracture with [...] encounter Miscellaneous Notes * Telephone Encounter - Cyrus Carmona RegSched Rep - 01/29/2025 12:54 PM EST Caller: SHAKILA Relationship: Grandchild Best call back number: [phone] Requested Prescriptions: Requested Prescriptions Pending Prescriptions Disp Refills busPIRone (BUSPAR) 30 MG tablet 180 tablet 1 Sig: Take 1 tablet by mouth 2 (Two) Times a Day. atorvastatin (Lipitor) 40 MG tablet 90 tablet 1 Sig: Take 1 tablet by mouth Daily. HYDROcodone-acetaminophen (NORCO) 5-325 MG per tablet 20 tablet 0 Sig: TAKE 1/2 TO 1 TABLET BY MOUTH EVERY TWELVE HOURS NEEDED FOR pain Pharmacy where request should be sent: [facility] - [address] [address] [address] - [phone] - [phone] FX Last office visit with prescribing clinician: 12/08/2024 Last telemedicine visit with prescribing clinician: Visit date not found Next office visit with prescribing clinician: 02/26/2025 Additional details provided by patient: PT IS OUT OF BUSPIRONE AND ATORVASTATIN. Does the patient have less than a 3 day supply: [x] Yes [] No Would you like a call back once the refill request has been completed: [] Yes [x] No If the office needs to give you a call back, can they leave a voicemail: [] Yes [x] No Farhad Cool 01/29/25 12:59 EST documented in this encounter Plan of Treatment Upcoming Encounters Date Type Department Care Team (Late st Contact Info) Description 02/26/2025 3:15 PM EST Office Visit [facility] [address] [facility] [place] [phone] Earl Dumont MD [address] [facility] [place] [address] documented as of this encounter Visit Diagnoses Diagnosis Generalized anxiety disorder Recurrent major depressive disorder, in full remission Hypercholesterolemia Pure hypercholesterolemia Age-related osteoporosis with current pathological fracture with routine healing, subsequent encounter Compression fracture of L2 vertebra with routine healing, subsequent encounter documented in this encounter Additional Health Concerns Assessment Noted Time PHQ-2 Depression Total Score: 2 07/14/19 24 4:30 PM EDT documented as of this encounter Care Teams Fuel Verification Technician Relationship Specialty Start Date End Date Earl Dumont MD [address] [place] [address] PCP - General Family Medicine 01/23/20 documented as of this encounter
--- OUTSIDE RECORDS SUMMARY | 2025-01-30 14:15 | XMS_ITS | Encounter Summary ---
[facility] Address [address] [place] [address] Care Team Providers Care Fence Post Cutter Name Role Phone Earl Dumont MD Primary Care Provider [phone] Reason for Visit * Reason Onset Date Comments Med Refill 12/22/2024 Encounter Details Date Type Department Care Team (Late st Contact Info) Description 12/22/2024 Telephone [facility] 210 [facility] [place] [address] Earl Dumont MD [address] [facility] [place] [address] Med Refill Social History Tobacco [...] EST ATTEMPTED TO CALL PT, NO ANSWER [facility] TO RELAY: MEDICATION HAS BEEN SENT, [...] SHAKILA Relationship: Other Best call back number: [phone] Requested Prescriptions: Requested Prescriptions Pending Prescriptions Disp Refills HYDROcodone-acetaminophen (NORCO) 5-325 MG per tablet 20 tablet 0 Si/2-1 PO Q 12 hours PRN pain form compression fracture Pharmacy where request should be sent: [facility] - [address] [address] [address] - [phone] [facility] [phone] FX Last office visit with prescribing clinician: [...] CENTER [facility] [address] [place] [address] Earl Dumont MD [address] [place] [address] documented as of this encounter Visit Diagnoses Diagnosis Age-related osteoporosis with current pathological fracture with routine healing, subsequent encounter Compression fracture of L2 vertebra with routine healing, subsequent encounter documented in this encounter Additional Health Concerns Assessment Noted Time PHQ-2 Depression Total Score: 2 07/14/19 24 4:30 PM EDT documented as of this encounter Care Teams Fence Post Cutter Relationship Specialty Start Date End Date Earl Dumont MD [address] [place] [address] PCP - General Family Medicine 01/23/20 documented as of this encounter
--- OUTSIDE RECORDS SUMMARY | 2025-01-30 14:15 | XMS_ITS | Encounter Summary ---
Author Organization [facility] Address [address] [place] [address] Care Team Providers Care Breast Buffer Name Role Phone Earl Dumont MD Primary Care Provider [phone] Reason for Visit * Reason Onset Date Comments Med Refill 11/21/2024 Encounter Details Date Type Department Care Team (Late st Contact Info) Description 11/21/2024 Telephone [facility] 210 [facility] [place] [address] Earl Dumont MD 210 [facility] [place] [address] Med Refill Social History Tobacco [...] Relationship: Emergency Contact Best call back number: [phone] Requested Prescriptions: VALSARTAN (DIDN'T SEE THIS ON HER LIST) Pharmacy where request should be sent: [id number] - [place] - [address] [address] [address] - [phone] - [phone] FX [phone] Last office visit with prescribing clinician: 11/15/2024 [...] [facility] [address] [place] [phone] Earl Dumont MD [address] [place] [address] documented as of this encounter Visit Diagnoses Not on filedocumented in this encounter Additional Health Concerns Assessment Noted Time PHQ-2 Depression Total Score: 2 07/14/19 24 4:30 PM EDT documented as of this encounter Care Teams Breast Buffer Relationship Specialty Start Date End Date Earl Dumont MD [address] [place] [address] PCP - General Family Medicine 01/23/20 documented as of this encounter
--- OUTSIDE RECORDS SUMMARY | 2025-01-30 14:15 | XMS_ITS | Encounter Summary ---
Author [facility] Address [address] [place] [address] Care Team Providers Care Transportation Escort Name Role Phone Earl Dumont MD Primary Care Provider [phone] Reason for Visit * Reason Onset Date Comments Med Refill 01/17/2025 Encounter Details Date Type Department Care Team (Late st Contact Info) Description 01/17/2025 Refill [facility] [address] [place] [address] Earl Dumont MD [address] [place] [address] Right leg pain; Pain of [...] encounter Miscellaneous Notes * Telephone Encounter - John Peck RegSched Rep - 01/17/2025 12:10 PM EST Caller: SHAKILA COX Relationship: Grandchild Best call back number: [phone] Requested Prescriptions: Requested Prescriptions Pending Prescriptions Disp Refills traMADol (ULTRAM) 50 MG tablet 60 tablet 0 Si PO BID PRN leg pain Pharmacy where request should be sent: [facility] - [address] [address] [address] - [phone] - [phone] FX Last office visit with prescribing clinician: [...] a voicemail: [] Yes [x] No Farhad Larson Rep 01/17/25 12:11 EST documented in this encounter Plan of Treatment Upcoming Encounters Date Type Department Care Team (Late st Contact Info) Description 02/26/2025 3:15 PM EST Office Visit [facility] [address] [place] [address] Earl Dumont MD [address] [place] [address] documented as of this encounter Visit Diagnoses Diagnosis Right leg pain Pain in soft tissues of limb Pain of right lower extremity documented in this encounter Additional Health Concerns Assessment Noted Time PHQ-2 Depression Total Score: 2 07/14/19 24 4:30 PM EDT documented as of this encounter Care Teams Transportation Escort Relationship Specialty Start Date End Date Earl Dumont MD [address] [place] [address] PCP - General Family Medicine 01/23/20 documented as of this encounter
--- OUTSIDE RECORDS SUMMARY | 2025-01-30 14:15 | XMS_ITS | Encounter Summary ---
[facility] Address [address] [place] [address] Care Team Providers Care Doctor Of Podiatry Name Role Phone Earl Dumont MD Primary Care Provider [phone] Reason for Visit * Reason Onset Date Comments Med Refill 12/15/2024 Encounter Details Date Type Department Care Team (Late st Contact Info) Description 12/15/2024 Refill [facility] [address] [place] [address] Earl Dumont MD [address] [place] [address] Age-related osteoporosis with current pathological [...] Relationship: Emergency Contact Best call back number: [phone] Requested Prescriptions: Requested Prescriptions Pending Prescriptions Disp Refills HYDROcodone-acetaminophen (NORCO) 5-325 MG per tablet 20 tablet 0 Si/2-1 PO Q 12 hours PRN pain form compression fracture traZODone (DESYREL) 150 MG tablet 90 tablet 0 Sig: Take 1 tablet by mouth every night at bedtime. Pharmacy where request should be sent: [facility] [place] [place] - [address] [address] [address] - [phone] - [phone] FX Last office visit with prescribing clinician: [...] Visit [facility] [address] [facility] [place] [place] [address] Earl Dumont MD [address] [facility] [place] [place] [address] documented as of this encounter [...] documented as of this encounter Care Teams Doctor Of Podiatry Relationship Specialty Start Date End Date Eral Dumont MD [address] [place] [address] PCP - General Family Medicine 01/23/20 documented as of this encounter
--- OUTSIDE RECORDS SUMMARY | 2025-01-30 14:16 | XMS_ITS | Encounter Summary ---
Author Organization [facility] Address [address] [place] [address] Care Team Providers Care Drama Therapist Name Role Phone Earl Dumont MD Primary Care Provider [phone] Encounter Details Date Type Department Care Team [...] Description 02/26/2025 3:15 PM EST Office Visit [facility] [address] [facility] [place] [address] Earl Dumont MD [address] [place] [address] documented as of this encounter Visit Diagnoses Not on filedocumented in this encounter Additional Health Concerns Assessment Noted Time PHQ-2 Depression Total Score: 2 07/14/19 24 4:30 PM EDT documented as of this encounter Care Teams Drama Therapist Relationship Specialty Start Date End Date Earl Dumont MD [address] [place] [address] PCP - General Family Medicine 01/23/20 documented as of this encounter
--- OUTSIDE RECORDS SUMMARY | 2025-01-30 14:16 | XMS_ITS | Encounter Summary ---
[facility] Address [address] [place] [address] Care Team Providers Care Manager Metrology Name Role Phone Earl Dumont MD Primary Care Provider [phone] Reason for Visit * Reason Onset Date Comments Med Refill 12/06/2024 Encounter Details Date Type Department Care Team (Late st Contact Info) Description 12/06/2024 Refill [facility] [address] [place] [address] Earl Dumont MD [address] [place] [address] Age-related osteoporosis with current pathological [...] [facility] Relationship: Other Best call back number: [phone] Requested Prescriptions: Requested Prescriptions Pending Prescriptions Disp Refills HYDROcodone-acetaminophen (NORCO) 5-325 MG per tablet 20 tablet 0 Si/2-1 PO Q 12 hours PRN pain form compression fracture Pharmacy where request should be sent: [id number] - [place], [place] - [id number] - [phone] - [phone] FX Last office visit with prescribing clinician: [...] [facility] [address] [facility] [place] [place] [phone] Earl Dumont MD [address] [place] [address] documented as of this encounter Visit Diagnoses Diagnosis Age-related osteoporosis with current pathological fracture with routine healing, subsequent encounter Compression fracture of L2 vertebra with routine healing, subsequent encounter documented in this encounter Additional Health Concerns Assessment Noted Time PHQ-2 Depression Total Score: 2 07/14/19 24 4:30 PM EDT documented as of this encounter Care Teams Manager Metrology Relationship Specialty Start Date End Date Earl Dumont MD [address] [place] [address] PCP - General Family Medicine 01/23/20 documented as of this encounter
--- OUTSIDE RECORDS SUMMARY | 2025-01-30 14:16 | XMS_ITS | Clinical Summary ---
[facility] Organization [facility] Address [address] [place] [address] Care Team Providers Care Brass Wind Instruments Tube Bender Name Role Phone Earl Dumont MD Primary Care Provider [phone] Allergies Active Allergy Reactions Criticality Noted Date [...] Day. 3 each 1 05/19/2 025 Active Entresto 49-51 MG tabletIndications :Diastolic [...] 90 tablet 1 025 Active nystatin (MYCOSTATIN) 164858 UNIT/GM powder Apply topically to the appropriate [...] mouth Daily. 30 tablet 5 025 Active traZODone (DESYREL) 150 MG tabletIndications :Primary insomnia Take 1 tablet by mouth every night at bedtime. 90 tablet 025 Active alendronate (FOSAMAX) 70 MG tabletIndications :Age-related osteoporosis without current pathological fracture Take 1 tablet by mouth Every 7 (Seven) Days. 4 tablet 2 025 Active amiodarone (PACERONE) 200 MG tablet Take 1 tablet by mouth Every 12 (Twelve) Hours. 120 tablet 5 025 Active levothyroxine (SYNTHROID, LEVOTHROID) 125 MCG tabletIndications :Acquired hypothyroidism Take 1 tablet by mouth Daily. 90 tablet 025 Active Fluticasone-Umecl idin-Vilant (Trelegy Ellipta) 100-62.5-25 MCG/ACT inhalerIndication s:Panlobular emphysema Inhale 1 puff Daily. 1 each 5 025 Active methocarbamol (ROBAXIN) 500 MG tablet 1 PO QID PRN muscle pain 120 tablet 1 025 Active traMADol (ULTRAM) 50 MG tabletIndications :Right leg pain,Pain of right lower extremity 1 PO BID PRN leg pain 60 tablet 025 Active Eliquis 5 MG tablet tabletIndications :History of pulmonary embolism,Multiple subsegmental pulmonary emboli without acute cor pulmonale TAKE 1 TABLET BY MOUTH 2 TIMES A DAY 10 tablet 025 Active docusate sodium (Colace) 100 MG capsuleIndication s:Chronic idiopathic constipation Take 1 capsule by mouth 2 (Two) Times a Day. 60 capsule 5 025 Active busPIRone (BUSPAR) 30 MG tabletIndications :Generalized anxiety disorder,Recurren t major depressive disorder, in full remission Take 1 tablet by mouth 2 (Two) Times a Day. 180 tablet 1 025 Active atorvastatin (Lipitor) 40 MG tabletIndications :Hypercholesterol emia Take 1 tablet by mouth Daily. 90 tablet 1 025 Active HYDROcodone-aceta minophen (NORCO) 5-325 MG per tabletIndications :Age-related osteoporosis with current pathological fracture with routine healing, subsequent encounter,Alanna isak fracture of L2 vertebra with routine healing, subsequent encounter TAKE 1/2 TO 1 TABLET BY MOUTH EVERY TWELVE HOURS NEEDED FOR pain 20 tablet Active guaiFENesin (Mucinex) 600 MG 12 hr tablet Take 2 tablets by mouth 2 (Two) Times a Day. 20 tablet 1 Active docusate sodium (Colace) 100 MG capsuleIndication s:Chronic idiopathic constipation Take 1 capsule by mouth 2 (Two) Times a Day. 60 capsule 5 025 2024 Discontinued(R eorder) busPIRone (BUSPAR) 30 MG tabletIndications :Generalized anxiety disorder,Recurren t major depressive disorder, in full remission Take 1 tablet by mouth 2 (Two) Times a Day. 180 tablet 1 025 2024 Discontinued(R eorder) atorvastatin (Lipitor) 40 MG tabletIndications :Hypercholesterol emia Take 1 tablet by mouth Daily. 90 tablet 1 025 2024 Discontinued(R eorder) traMADol (ULTRAM) 50 MG tabletIndications :Right leg pain,Pain of right lower extremity 1 PO BID PRN leg pain 60 tablet 025 2024 Discontinued(R eorder) apixaban (ELIQUIS) 5 MG tablet tabletIndications :History of pulmonary embolism,Multiple subsegmental pulmonary emboli without acute cor pulmonale Take 1 tablet by mouth 2 (Two) Times a Day. 10 tablet 025 2024 Discontinued HYDROcodone-aceta minophen (NORCO) 5-325 MG per tabletIndications :Age-related osteoporosis with current pathological fracture with routine healing, subsequent encounter,Alanna isak fracture of L2 vertebra with routine healing, subsequent encounter TAKE 1/2 TO 1 TABLET BY MOUTH EVERY TWELVE HOURS NEEDED FOR pain 20 tablet 025 2024 Discontinued(R eorder) HYDROcodone-aceta [...] Encounters Date Type Department Care Team Description 01/29/2025 Telephone [facility] [address] [facility] [place] [address] Earl Dumont MD New Med Request 01/29/2025 Refill [facility] [address] [place] [address] Earl Dumont MD Generalized anxiety disorder; Recurrent major depressive disorder, in full remission; Hypercholesterolemia; Age-related osteoporosis with current pathological fracture with routine healing, subsequent encounter; Compression fracture of L2 vertebra with routine healing, subsequent encounter 01/17/2025 Telephone [facility] [address] [place] [address] Earl Duomnt MD Med Management 01/17/2025 Refill [facility] [address] [facility] [place] [address] Earl Dumont MD History of pulmonary embolism; Multiple subsegmental pulmonary emboli without acute cor pulmonale 01/17/2025 Refill [facility] [address] [facility] [place] [address] Earl Dumont MD Right leg pain; Pain of right lower extremity 01/16/2025 Telephone [facility] [address] [facility] [place] [address] Earl Dumont MD New Med Request 01/16/2025 Refill [facility] [address] [facility] [place] [address] Earl Dumont MD Generalized anxiety disorder; Recurrent major depressive disorder, in full remission; Hypercholesterolemia 01/08/2025 Refill [facility] [address] [facility] [place] [address] Earl Dumont MD Age-related osteoporosis with current pathological fracture with routine healing, subsequent encounter; Compression fracture of L2 vertebra with routine healing, subsequent encounter 12/25/2024 Telephone [facility] [address] [facility] [place] [address] Earl Dumont MD Med Refill 12/22/2024 Refill [facility] [address] [facility] [place] [address] Earl Dumont MD Age-related osteoporosis with current pathological fracture with routine healing, subsequent encounter; Compression fracture of L2 vertebra with routine healing, subsequent encounter 12/22/2024 Telephone [facility] [address] [facility] [place] [address] Earl Dumont MD Med Refill 12/22/2024 Refill [facility] [address] [facility] [place] [address] Earl Dumont MD Memory change 12/20/2024 Refill [facility] [address] [facility] [place] [address] Earl Dumont MD Age-related osteoporosis without current pathological fracture; History of pulmonary embolism; Multiple subsegmental pulmonary emboli without acute cor pulmonale; Acquired hypothyroidism 12/15/2024 Telephone [facility] [address] [facility] [place] [address] Earl Dumont MD New Med Request 12/15/2024 Refill [facility] [address] [facility] [place] [address] Earl Dumont MD Age-related osteoporosis with current pathological fracture with routine healing, subsequent encounter; Compression fracture of L2 vertebra with routine healing, subsequent encounter; Primary insomnia 12/14/2024 Refill [facility] [address] [facility] [place] [address] Earl Dumont MD Right leg pain; Pain of right lower extremity 12/11/2024 Telephone [facility] [address] [facility] [place] [address] Earl Dumont MD MEDICAL EQUIPMENT 12/08/2024 2:00 PM EDT Office Visit [facility] [address] [facility] [place] [address] Earl Dumont MD Recurrent falls (Primary Dx); Chronic obstructive pulmonary disease with (acute) lower respiratory infection; Coccygodynia; Right leg pain; Chronic heart failure with preserved ejection fraction; Diastolic dysfunction with chronic heart failure 12/08/2024 Travel 12/06/2024 Refill [facility] [address] [facility] [place] [address] Earl Dumont MD Age-related osteoporosis with current pathological fracture with routine healing, subsequent encounter; Compression fracture of L2 vertebra with routine healing, subsequent encounter 12/06/2024 Telephone [facility] [address] [facility] [place] [address] Earl Dumont MD MEDICAL EQUITMENT 12/05/2024 Telephone [facility] [address] [facility] [place] [address] Earl Dumont MD Med Management 11/22/2024 2:00 PM EDT Office Visit [facility] [address] [facility] [place] [address] Earl Dumont MD Age-related osteoporosis with current pathological fracture with routine healing, subsequent encounter (Primary Dx); Compression fracture of L2 vertebra with routine healing, subsequent encounter; Gastroesophageal reflux disease, unspecified whether esophagitis present; Coccygodynia 11/22/2024 Travel 11/21/2024 [facility] [address] [facility] [place] [address] Earl Dumont MD Med Refill 11/15/2024 [facility] [address] [facility] [place] [address] Earl Dumont MD CALLBACK 11/14/2024 Refill [facility] [address] [facility] [place] [address] Earl Dumont MD Generalized anxiety disorder 11/13/2024 Refill [facility] [address] [facility] [place] [address] Earl Dumont MD 11/09/2024 [facility] [address] [facility] [place] [address] Earl Dumont MD from Last 3 Months Immunizations Immunization Administration [...] place to sleep or slept in a fpc (including now)? No 10/01/2021 PHQ-2 Answer Date [...] Description 02/26/2025 3:15 PM EST Office Visit [facility] [address] [place] [phone] Earl Dumont MD [address] [place] [address] Health Maintenance Due Date Last Done [...] SCAN Discontinued Medical Devices Implanted Type Area Registered Nurse Maternal Child Device Identifier Shelf Expiration Date Model / Serial / Lot Cmt Bone Simplex/P Full Dose 10/Pk - [id number] Implanted:Qty : 1 on 08/28/2021 by Nilesh Hare MD at [place] Implant Left: Knee MARTÍN DEWEY [id number] 09/08/2023 [id number] / / [id number] [facility] Bone Simplex/P Full Dose 10/Pk - [id number] Implanted:Qty : 1 on 08/28/2021 by Nilesh Hare MD at [place] Implant Left: Knee MARTÍN DEWEY 11/08/2023 [id number] / / [id number] Dev Contrl Tiss Stratafix Spiral Pdo Bidir 1 [id number] - [id number] Implanted:Qty : 1 on 08/28/2021 by Nilesh Hare MD at [place] Implant Left: Knee [employer] 06/07/2026 [id number] / / [id number] Insrt Tib/Kn Triath Ps A/Poly Sz4 9mm - [id number] Implanted:Qty : 1 on 08/28/2021 by Nilesh Hare MD at [place] Implant Left: Knee MARTÍN DEWEY [id number] 12/27/2021 [id number] / / [id number] Comp Fem Triath Ps Cmt No4 Lt - [id number] Implanted:Qty : 1 on 08/28/2021 by Nilesh Hare MD at [place] Implant Left: Knee MARTÍN DEWEY [id number] 06/18/2025 [id number] / / [id number] Peg Fem Fix Triathlon Dist Mod Pk/2 - [id number] Implanted:Qty : 1 on 08/28/2021 by Nilesh Hare MD at [place] Implant Left: Knee MARTÍN DEWEY [id number] 06/01/2025 [id number] / / [id number] Pat Triath Asym X3 51p52gr - [id number] Implanted:Qty : 1 on 08/28/2021 by Nilesh Hare MD at [place] Implant Left: Knee MARTÍN DEWEY [id number] 06/21/2026 [id number] / / [id number] Totl Kn Med Demand Martín - [id number] Implanted:Qty : 1 on 08/28/2021 by Nilesh Hare MD at [place] Implant Left: Knee MARTÍN DEWEY [id number] [...] AM EDT Performed at: 01 - [facility] [address] [place], [place] [id number] Stopboard Assembler: Osito Cabezas PhD, Phone: [phone] Patient Fasting: N us Earl Dumont MD LAB BLOOD ORDERABLES Final Resu lt [facility] (AMBULATORY) [address] [place] [address], [facility] [address] [place] [address], from Last 3 Months or Most Recently [...] Of Support Discussed With: Patient Care Teams Brass Wind Instruments Tube Bender Relationship Specialty Start Date End Date Earl Dumont MD [address] [facility] [place] [address] PCP - General Family Medicine 01/23/20
--- OUTSIDE RECORDS SUMMARY | 2025-01-30 14:16 | XMS_ITS | Encounter Summary ---
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 No 10/01/2021 PHQ-2 Answer Date [...] 12/07/2024 10:29 AM EDT Attempted to call [employer], no answer [facility] TO RELAY: I can write for this, but sometimes insurance will not cover this type of equipment and pts will still have to pay for it. [place] can be expensive. Where would you like [...] [facility] Relationship: Other Best call back number: [phone] Equipment requested: PUREWICK Reason for the request: MOBILITY ISSUES DUE TO FALL, TROUBLE TRANSFERRING FROM CHAIR TO TOILET Prescribing Provider: EARL GOMEZ Additional information or concerns: PATIENT IS NEEDING HER INSURANCE TO PAY FOR IT documented in this encounter Plan of Treatment Upcoming Encounters Date Type Department Care Team (Late st Contact Info) Description 02/26/2025 3:15 PM EST Office Visit [facility] [address] [facility] [place] [phone] Earl Gomez MD [address] [facility] [place] [address] documented as of this encounter Visit Diagnoses Not on filedocumented in this encounter Additional Health Concerns Assessment Noted Time PHQ-2 Depression Total Score: 2 07/14/19 24 4:30 PM EDT documented as of this encounter Care Teams Watch And Clock Maker And Repairer Relationship Specialty Start Date End Date Earl Gomez MD [address] [place] [address] PCP - General Family Medicine 01/23/20 documented as of this encounter
[2025-01-30 14:25] LABS: Hematocrit 37.0 % (37.0-47.0); Hemoglobin 11.0 g/dL (12.2-16.2); Mean Corpuscular HGB Conc 29.7 g/dL (31.8-35.4); Mean Corpuscular Hemoglobin 27.4 pg (27.0-31.2); Mean Corpuscular Volume 92.0 fl (81-99); Platelet Count 177 K/mm3 (142-424); Red Blood Count 4.02 M/mm3 (4.20-5.40); White Blood Count 6.7 K/mm3 (4.8-10.8)
[2025-01-30 14:53] LABS: Anion Gap 5.3 mEq/L (5-15); Blood Urea Nitrogen 12 mg/dl (7-17); Calcium 8.5 mg/dl (8.4-10.2); Carbon Dioxide 31 mmol/L (22.0-30.0); Chloride 102 mmol/L (98-107); Creatinine,Serum 0.80 mg/dl (0.52-1.04); Estimated Glomerular Filt Rate 69 ml/min (>60); GFR (African American) 84 ML/MIN (>60); Glucose 98 mg/dl (74-100); Potassium 3.3 mmoL/L (3.5-5.1); Sodium 135 mmol/L (136-145)
[2025-01-30 14:58] LABS: C-Reactive Protein 73.4 mg/L (0-4)
[2025-01-30 15:04] LABS: Ovalocytes 1+; Target Cells 2+; Total Cells Counted 100
[2025-01-31 13:42] LABS: Antinuclear Antibodies (ANA) Negative (Negative)
== END 2025-01-30 23:59 | disposition home or self-care (01) ==
PROVIDERS: Nurse Practitioner; PCP Family Medicine; Visit Provider Internal Medicine Pulmonary Disease
DX: I21.4 Non-ST elevation (NSTEMI) myocardial infarction (principal); J84.9 Interstitial pulmonary disease, unspecified; J98.4 Other disorders of lung; J44.1 Chronic obstructive pulmonary disease with (acute) exacerbation
CPT/HCPCS: 36415; 80048; 85007; 85014; 85018; 85048; 85049; 86140; 86200; 86331; 86602; 86606; 86609